=== PATIENT | male | born 1945 | race Caucasian/White ===

== ENCOUNTER → 2016-12-11 | Outpatient (CLI) | payer OTHER ==
[~2016-12-11] MED LIST: AMLO-114 PO; BP MED; GLC500 PO; GLUC500C4 PO; HYDR25TA4 PO; IBUP1CAP9 PO; LISI40TA PO; MAGN400T6 PO; METO1TAB71 PO; MULT-506 PO; SIMV20TA2 PO; VITAMIN D PO; [UNRECOGNIZED DRUG - CODE] PO
[2016-12-11 17:29] LABS: BASO % 0.2 %; BASO ABS # 0.01 K/uL (0-0.2); COMPLETE YES; HEMATOCRIT 39.9 % (42-52); IG% 0.2 %; LYMPH % 46.1 %; LYMPH ABS # 2.73 K/uL (1.2-3.4); MEAN CELL VOLUME 86.6 fL (80-100); MEAN CORPUSCULAR HEMOGLOBIN 29.5 pg (25-34); MEAN CORPUSCULAR HGB CONC 34.1 g/dl (32-36); MEAN PLATELET VOLUME 10.8 fL (7.4-10.4); MONO % 5.2 %; NEUT % 47.3 %; PLATELET COUNT 149 K/uL (130-400); RED BLOOD COUNT 4.61 M/uL (4.7-6.1); WHITE BLOOD COUNT 5.92 K/uL (4.8-10.8)
[2016-12-11 17:49] LABS: URINE PROTIEN/CREAT RATIO 0.1 (0-0.2); URINE TOTAL PROTEIN 17.5 mg/dl (0-11.9)
[2016-12-11 17:52] LABS: ALT/SGPT 30 U/L (12-78); BLOOD UREA NITROGEN 24 mg/dl (7-18); BUN/CREATININE RATIO 21.8 (10-20); CALCIUM 8.5 mg/dl (8.5-10.1); CARBON DIOXIDE 29 mmol/L (21-32); CHLORIDE 107 mmol/L (98-107); CHOLESTEROL 178 mg/dl (0-200); GLUCOSE 116 mg/dl (70-99); POTASSIUM 3.4 mmol/L (3.5-5.1); SODIUM 141 mmol/L (136-145); TRIGLYCERIDES 362 mg/dl (0-150); VERY LOW DENSITY LIPOPROT CALC 72 mg/dl
[2016-12-11 18:02] LABS: ALKALINE PHOSPHATASE 60 U/L (45-117); AST/SGOT 17 U/L (15-37); CHOLESTEROL/HDL RATIO 5.4; HDL CHOLESTEROL 33 mg/dl; LDL CHOLESTEROL CALCULATED 73 mg/dl
[2016-12-12 06:52] LABS: ESTIMATED AVERAGE GLUCOSE 114 mg/dl; HA1C FLAG Normal (Normal)
== END | disposition home or self-care (01) ==
LOC: C.LAB 17:05
PROVIDERS: ATTEND Internal Medicine Geriatric Medicine
DX: E78.5 Hyperlipidemia, unspecified (principal); I10 Essential (primary) hypertension; R80.9 Proteinuria, unspecified; E11.9 Type 2 diabetes mellitus without complications; Z11.59 Encounter for screening for other viral diseases

== ENCOUNTER → 2016-12-31 | Day surgery (SDC) | payer OTHER ==
[2016-12-25 09:06] VITALS: Ht 172.7 cm; Wt 100.0 kg
[~2016-12-31] VITALS: Ht 172.7 cm; Wt 100.0 kg
[~2016-12-31] MED LIST changes: -BP MED; +LIDOCAINE HCL 2% 2 ML VIAL (20MG/ML) ONE; +PROPOFOL IV EMULSION 10 MG/ML 20 ML VIAL IV ONE; +SODIUM CHLORIDE 0.9% 500ML 500 ML IV ONE
--- NOTE | 2016-12-31 13:09 | Endo History and Physical ---
History & Physical Date of Service: Dec 31, 2016. Chief Complaint: screening Referring Physician: Dr. Andi Kendall History of Present Illness 71 yo CM who presents for screening colonoscopy. Past Surgical History Hx Cardiac Surgery: No Hx Internal Defibrillator: No Hx Pacemaker: No Hx Abdominal Surgery: No Hx of Implantable Prosthesis: No Hx Post-Op Nausea and Vomiting: No Hx Cancer Surgery: No Hx Thoracic Surgery: No Hx Orthopedic: Yes (LEFT FEMUR FX REPAIR (TRACTION), LEFT BIG TOE SX WITH HARDWARE) Hx Urinary Tract Surgery: No Family History None Social History Smoking Status: Former Smoker Hx Substance Use: No Hx Alcohol Use: Yes (OCCASIONALLY) Allergies Coded Allergies: No Known Allergies (Verified , 12/31/16) Current Medications Reported Home Medications Medications Dose Route/Sig Max Daily Dose Days Date Category Mag-Ox (Magnesium Oxide) 400 Mg Tab 400 Mg PO QAM 12/25/16 Reported Glucosamine (Glucosamine Sulfate) 500 Mg Cap 1,000 Mg PO QAM 12/25/16 Reported [Vitamin D] 1 Tab PO QAM 12/25/16 Reported Multivitamin (Multivitamins) Tab 1 Tab PO QAM 12/25/16 Reported Ibuprofen 200 Mg Cap 2 Cap PO BID PRN 12/25/16 Reported Doxazosin (Doxazosin Mesylate) 8 Mg Tab 0.5 Tab PO BID 12/25/16 Reported Zocor (Simvastatin) 20 Mg Tab 20 Mg PO QPM 12/25/16 Reported Metformin HCl 500 Mg Tab 1 Tab PO BID 12/25/16 Reported Toprol-Xl (Metoprolol Succinate) 200 Mg Tabcr 200 Mg PO QAM 12/25/16 Reported Hctz (Hydrochlorothiazide) 25 Mg Tab 25 Mg PO QAM 12/25/16 Reported Zestril (Lisinopril) 40 Mg Tab 40 Mg PO QAM 12/25/16 Reported Norvasc (Amlodipine Besylate) 10 Mg Tab 10 Mg PO QAM 12/25/16 Reported Vital Signs Weight (Kilograms): 100 Height (Feet): 5 Height (Inches): 8 Date Time Temp Pulse Resp B/P (MAP) Pulse Ox O2 Delivery O2 Flow Rate FiO2 12/31/16 12:11 36.8 61 20 177/75 (109) 97 Room Air Physical Exam General Appearance: WD/WN, no apparent distress Respiratory/Chest: Auscultation: breath sounds normal Cardiovascular: Heart Auscultation: RRR Abdomen: Bowel Sounds: normal Inspection & Palpation: soft, non-distended, no tenderness, guarding & rebound Assessment and Plan Assessment: 71 yo CM who presents for screening colonoscopy. Plan: Proceed with colonoscopy.
--- NOTE | 2016-12-31 14:04 | Discharge Instructions ---
Endoscopy Patient Instructions Date / Procedure(s) Performed Dec 31, 2016. Colonoscopy Allergy Information Coded Allergies: No Known Allergies (Verified , 12/31/16) Discharge Date / Findings Dec 31, 2016. Colon polyps Rectal polyps Internal hemorrhoids Medication Instructions Stopped Medication(s): Stopped Metformin,vitamins yesterday OK to resume all medications today as prescribed Reported Home Medications Medications Dose Route/Sig Max Daily Dose Days Date Category Mag-Ox (Magnesium Oxide) 400 Mg Tab 400 Mg PO QAM 12/25/16 Reported Glucosamine (Glucosamine Sulfate) 500 Mg Cap 1,000 Mg PO QAM 12/25/16 Reported [Vitamin D] 1 Tab PO QAM 12/25/16 Reported Multivitamin (Multivitamins) Tab 1 Tab PO QAM 12/25/16 Reported Ibuprofen 200 Mg Cap 2 Cap PO BID PRN 12/25/16 Reported Doxazosin (Doxazosin Mesylate) 8 Mg Tab 0.5 Tab PO BID 12/25/16 Reported Zocor (Simvastatin) 20 Mg Tab 20 Mg PO QPM 12/25/16 Reported Metformin HCl 500 Mg Tab 1 Tab PO BID 12/25/16 Reported Toprol-Xl (Metoprolol Succinate) 200 Mg Tabcr 200 Mg PO QAM 12/25/16 Reported Hctz (Hydrochlorothiazide) 25 Mg Tab 25 Mg PO QAM 12/25/16 Reported Zestril (Lisinopril) 40 Mg Tab 40 Mg PO QAM 12/25/16 Reported Norvasc (Amlodipine Besylate) 10 Mg Tab 10 Mg PO QAM 12/25/16 Reported Provider Instructions Activity Restrictions - No exercising or heavy lifting for 24 hours. - Do not drink alcohol the day of the procedure. - Do not drive a car or operate machinery until the day after the procedure. - Do not make any important decisions or sign important papers in 24 hours after the procedure. Following Day: - Return to full activity which may include returning to work/school. Diet Start your diet with liquids and light foods (jello, soup, juice, toast). Then eat your usual diet if not nauseated. Treatment For Common After Affects For mild abdominal pain, bloating, or excessive gas: - Rest - Eat lightly - Lie on right side Follow-Up Information Follow-up with Dr. Andi Kendall as scheduled Anesthesia Information What You Should Know You have had a procedure that required some medicine to reduce anxiety and discomfort. This treatment is called moderate sedation. After receiving the treatment, you may be sleepy, but you will be able to breathe on your own. The effects of the treatment may last for several hours. Follow these instructions along with Activity/Diet recommendations noted above: * Do NOT do anything where dizziness or clumsiness would be dangerous. * Rest quietly at home today, then you can be up and about tomorrow. * Have a responsible person stay with you the rest of today. * You may have had an I.V. today. If so, you may take the dressing off later today. Recommendations Call your doctor if: * Trouble breathing * Continuous vomiting for more than 24 hours * Temperature above 101 degrees * Severe abdominal pain or bloating * Pain not relieved by pain medicine ordered * There is increased drainage or redness from any incision * A large amount of rectal bleeding greater than 2-3 tablespoons. (If you had a polyp/s removed or have hemorrhoids, a small amount of blood - from the rectum is to be expected.) * You have any unanswered questions or concerns. IN THE EVENT OF A SERIOUS EMERGENCY, GO TO THE NEAREST EMERGENCY ROOM Your discharge instructions were prepared by provider Emil Ambriz. Patient Instructions Signature Page Neo Benavidez Patient (or Guardian) Signature/Date: I have read and understand the instructions given to me by my caregivers. Caregiver/RN/Doctor Signature/Date: The above-named patient and/or guardian has received patient instructions on this date. + Original Patient Signature Page (only) stays with chart. Please make copy for patient.
[2016-12-31 14:37] VITALS: BP 167/69; PULSE 57; O2SAT 97
--- NOTE | 2016-12-31 14:43 | Anesthesiology Progress Note ---
Anesthesia Post Op Note Date & Time Dec 31, 2016 at 14:43 Vital Signs Pain Intensity: 0 Vital Signs Past 12 Hours Date Time Temp Pulse Resp B/P (MAP) Pulse Ox O2 Delivery O2 Flow Rate FiO2 12/31/16 14:37 57 20 167/69 (101) 97 Room Air 12/31/16 14:20 57 20 165/73 (103) 96 Room Air 12/31/16 14:05 60 20 172/70 (104) 98 Room Air 12/31/16 12:11 36.8 61 20 177/75 (109) 97 Room Air Notes Mental Status: alert / awake / arousable, participated in evaluation Pt Amnestic to Procedure: Yes Nausea / Vomiting: adequately controlled Pain: adequately controlled Airway Patency, RR, SpO2: stable & adequate BP & HR: stable & adequate Hydration State: stable & adequate Anesthetic Complications: no major complications apparent
--- NOTE | 2017-01-01 00:14 | GI REPORT ---
Procedure Date: 12/31/2016 1:21 PM Procedure: Colonoscopy Indications: Screening for colorectal malignant neoplasm Medicines: Monitored Anesthesia Care Complications: No immediate complications. Estimated Blood Loss: Estimated blood loss: none. Procedure: Pre-Anesthesia Assessment: - Prior to the procedure, a History and Physical was performed, and patient medications and allergies were reviewed. The patient's tolerance of previous anesthesia was also reviewed. The risks and benefits of the procedure and the sedation options and risks were discussed with the patient. All questions were answered, and informed consent was obtained. Prior Anticoagulants: The patient has taken no previous anticoagulant or antiplatelet agents. ASA Grade Assessment: II - A patient with mild systemic disease. After reviewing the risks and benefits, the patient was deemed in satisfactory condition to undergo the procedure. After I obtained informed consent, the scope was passed under direct vision. Throughout the procedure, the patient's blood pressure, pulse, and oxygen saturations were monitored continuously. The Scope was introduced through the anus and advanced to the terminal ileum. The colonoscopy was performed without difficulty. The patient tolerated the procedure well. The quality of the bowel preparation was good. The terminal ileum, ileocecal valve, appendiceal orifice, and rectum were photographed. Findings: Nine pedunculated and sessile polyps were found in the rectum, in the sigmoid colon and in the ascending colon. The polyps were 5 to 11 mm in size. These polyps were removed with a hot snare. Resection and retrieval were complete. Non-bleeding internal hemorrhoids were found during retroflexion. The hemorrhoids were small. Impression: - Nine 5 to 11 mm polyps in the rectum, in the sigmoid colon and in the ascending colon, removed with a hot snare. Resected and retrieved. - Non-bleeding internal hemorrhoids. Recommendation: - Resume previous diet. - Continue present medications. - Repeat colonoscopy for surveillance based on pathology results. - Return to primary care physician as previously scheduled. Emil Ambriz, 12/31/2016 3:19:28 PM This report has been signed electronically. Note Initiated On: 12/31/2016 1:21 PM I attest to the content of the Intraoperative Record and orders documented therein, exceptions below
== END | disposition home or self-care (01) ==
LOC: C.GI 11:46
PROVIDERS: ATTEND Internal Medicine
DX: Z12.11 Encounter for screening for malignant neoplasm of colon (principal); D12.2 Benign neoplasm of ascending colon; K62.1 Rectal polyp; K64.8 Other hemorrhoids; Z87.891 Personal history of nicotine dependence

== ENCOUNTER → 2017-06-11 | Outpatient (CLI) | payer OTHER ==
[~2017-06-11] MED LIST changes: +DOXA8TAB6 PO; -LIDOCAINE HCL 2% 2 ML VIAL (20MG/ML) ONE; -METO1TAB71 PO; +METO200T32 PO; -PROPOFOL IV EMULSION 10 MG/ML 20 ML VIAL IV ONE; -SODIUM CHLORIDE 0.9% 500ML 500 ML IV ONE; -[UNRECOGNIZED DRUG - CODE] PO
[2017-06-11 14:37] LABS: BASO % 0.1 %; BASO ABS # 0.01 K/uL (0-0.2); EOS % 0.9 %; EOS ABS # 0.07 K/uL (0-0.5); HEMATOCRIT 43.1 % (42-52); IG# 0.01 K/uL (0.00-0.02); LYMPH % 38.4 %; LYMPH ABS # 2.91 K/uL (1.2-3.4); MEAN CELL VOLUME 85.7 fL (80-100); MEAN CORPUSCULAR HEMOGLOBIN 29.8 pg (25-34); MEAN CORPUSCULAR HGB CONC 34.8 g/dl (32-36); MONO % 5.3 %; NEUT % 55.2 %; NEUT ABS # 4.18 K/uL (1.4-6.5); PLATELET COUNT 149 K/uL (130-400); RED CELL DISTRIBUTION WIDTH CV 13.4 % (11.5-14.5); WHITE BLOOD COUNT 7.58 K/uL (4.8-10.8)
[2017-06-11 15:03] LABS: BLOOD UREA NITROGEN 20 mg/dl (7-18); CALCIUM 9.2 mg/dl (8.5-10.1); CARBON DIOXIDE 29 mmol/L (21-32); CREATININE 1.06 mg/dl (0.60-1.40); GLUCOSE 95 mg/dl (70-99); POTASSIUM 3.7 mmol/L (3.5-5.1); SODIUM 137 mmol/L (136-145)
[2017-06-12 05:48] LABS: HEMOGLOBIN A1C 5.6 % (4.5-5.6)
== END | disposition home or self-care (01) ==
LOC: C.LAB 14:07
PROVIDERS: ATTEND Internal Medicine Geriatric Medicine
DX: I10 Essential (primary) hypertension (principal); N40.0 Benign prostatic hyperplasia without lower urinary tract symptoms; E11.9 Type 2 diabetes mellitus without complications

== ENCOUNTER → 2017-07-25 | Outpatient (CLI) | payer OTHER ==
[2017-07-25 14:15] LABS: BLOOD UREA NITROGEN 19 mg/dl (7-18); CALCIUM 9.2 mg/dl (8.5-10.1); CARBON DIOXIDE 30 mmol/L (21-32); CREATININE 0.86 mg/dl (0.60-1.40); GLUCOSE 71 mg/dl (70-99); POTASSIUM 4.2 mmol/L (3.5-5.1); SODIUM 140 mmol/L (136-145)
== END | disposition home or self-care (01) ==
LOC: C.LABBC 10:33
PROVIDERS: ATTEND Internal Medicine Geriatric Medicine
DX: I10 Essential (primary) hypertension (principal)

== ENCOUNTER → 2017-12-04 | Outpatient (CLI) | payer OTHER ==
[~2017-12-04] MED LIST changes: -AMLO-114 PO; +AMLO10TA3 PO; -IBUP1CAP9 PO; +IBUP200C80 PO
[2017-12-04 15:21] LABS: ALBUMIN 3.6 gm/dl (3.4-5.0); ALKALINE PHOSPHATASE 69 U/L (45-117); ALT/SGPT 29 U/L (12-78); AST/SGOT 19 U/L (15-37); BLOOD UREA NITROGEN 22 mg/dl (7-18); CALCIUM 8.9 mg/dl (8.5-10.1); CARBON DIOXIDE 26 mmol/L (21-32); CHOLESTEROL 187 mg/dl (0-200); CREATININE 1.04 mg/dl (0.60-1.40); GLUCOSE 88 mg/dl (70-99); LDL CHOLESTEROL CALCULATED 81 mg/dl; POTASSIUM 3.6 mmol/L (3.5-5.1); SODIUM 139 mmol/L (136-145); TOTAL PROTEIN 7.2 gm/dl (6.4-8.2)
== END | disposition home or self-care (01) ==
LOC: C.LAB 13:24
PROVIDERS: ATTEND Internal Medicine Geriatric Medicine
DX: I10 Essential (primary) hypertension (principal); E11.9 Type 2 diabetes mellitus without complications; E78.5 Hyperlipidemia, unspecified

== ENCOUNTER 2018-06-30 09:51 | Observation (INO) ==
[2018-06-30] MEDS ORDERED: MIDAZOLAM HCL 1 MG/ML 2ML VIAL ONE (10:53)
[2018-06-30] MEDS ORDERED: fentaNYL citrate 100 MCG/2 ML VIAL ONE (10:53)
[2018-06-30] MEDS ORDERED: NiCARDipine HCL INJ 2.5 MG/ML 10 ML AMP ONE (10:54)
[2018-06-30] MEDS ORDERED: HEPARIN (PORCINE) 1000 UNIT/ML 10 ML (CATH LAB USE ONLY) ONE (10:54)
[2018-06-30] MEDS ORDERED: NITROGLYCERIN/D5W 100MCG/ML 20ML SYR ONE (10:54)
--- NOTE | 2018-06-30 11:12 | History & Physical Bridge Note ---
Date of Service June 30, 2018 History & Physical Bridge Note I have examined the patient, reviewed the History & Physical and in the interval since the performance of the History & Physical I have noted the following changes of clinical significance: no changes noted
--- NOTE | 2018-06-30 11:12 | Pre Anesthesia Assessment ---
Date of Service June 30, 2018 Pre Sedation Assessment Vital Signs Temp Pulse Resp BP Pulse Ox 06/30/18 10:09 37.1 C 67 16 153/69 H 95 Cardiovascular RRR, no murmur, no edema Respiratory normal respiratory effort, lungs clear to auscultation Pre-Sedation Airway Assessment Smoking Status: Former smoker Hx Sleep Apnea: No Short, Thick Neck: No Thyromental Distance: > or= 3.5 Finger Breadths Oral Cavity: + WNL Mallampati Class: II ASA: ASA3 NPO Status Date of Last Intake of Fluids: 06/29/18 Time of Last Intake of Fluids: 20:00 Date of Last Intake of Solid Food: 06/29/18 Time of Last Intake of Solid Foods: 20:00 Procedure Planning Contraindications for Sedation: none Current Medications Reviewed: Yes Notes The planned sedation has been discussed with the patient. Informed Consent was obtained. I have identified the patient, determined the appropriateness of sedation and have assessed the patient immediately prior to the procedure. All medicine(s) and interventions are by my order.
[2018-06-30] MEDS ORDERED: HEPARIN 25000 UNIT/500 ML D5W IV ONE (12:47)
[2018-06-30] MEDS ORDERED: Heparin IV Standard *NO* Bolus STA (12:48)
--- NOTE | 2018-06-30 12:58 | Post Anesthesia Assessment ---
Date of Service June 30, 2018 Post Sedation Assessment Vital Signs Temp Pulse Resp BP Pulse Ox 06/30/18 10:09 37.1 C 67 16 153/69 H 95 Recovery Score Activity: Moves 4 extremities Respiration: Deep Breath/Cough Circulation: +/-20% PreAnes Value Consciousness: Fully Awake Oxygen Saturation: O2 needed for >90% Discharge Sedation Level of Care: Fast Track Phase II Post Sedation Plan On clinical assessment, the patient appears to have tolerated the sedation without complications. Patient is recovering as anticipated. Patient will continue to be monitored by nursing and may be discharged when sedation discharge criteria are met per below protocol. Upon Completions of procedure and additional 15 minutes continue every 5 minute vital signs and the P.A.R. score; then discharge to a Phase I or Fast Track to Phase II per the following guidelines: * Discharge Patient to appropriate Phase II area if PAR is 8 or greater or return to pre- procedure baseline. The post - procedure orders will be as directed. * If PAR score is less than 8 or not return to pre-procedure baseline then patient will follow Phase I monitoring till PAR is reached for Phase II. The Phase I may be done in procedure room or may call to secure a Phase I area. * If naloxone or flumazenil are used for reversal, hold in Phase I for continued monitoring from when last reversal dose was given for a minimum of 60 minutes or longer pending the nurse and/or physician discretion of patient condition before discharge to Phase II. Please call the Sedation Physician to re-evaluate and complete post-note for discharge to Phase II area. Do NOT discharge from procedure sedation or Phase 1 until post- sedation evaluation note is complete by procedure /sedation MD Sedation Discharge Instructions to be given to the patient at discharge to home.
--- NOTE | 2018-06-30 13:04 | Cardiac Catheterization ---
Cardiac Cath Procedure Full Procedure Date June 30, 2018 Pre-Procedure Diagnosis Pre-Procedure Diagnosis: Angina AUC Score AUC Score: 7 Post-Procedure Diagnosis Post-Procedure Diagnosis: Severe CAD, Unsuccessful PCI, Normal LV Systolic Function and Normal Intracardiac Pressures Procedure(s) Performed Procedure(s) Performed: Coronary Angiography, Left Heart Cath, PTCA and IVUS Ux Interaction Designer Ian Rock MD Sleeve Baster(s) Drake Estimated Blood Loss Estimated Blood Loss: None Medication(s) Medication(s): Fentanyl, Heparin, Lidocaine 1%, Nicardipine, Nitroglycerin and Versed Summary of Findings Indication: Unstable angina Access: 6 [place] right radial artery Catheters: [place], JL 3.5, pigtail; JL 3.5 guide Findings: LM -short, mildly calcified, 20% distal disease (IVUS - eccentric calcification , mild to moderate diffuse disease, MLA 7.9 mm) LAD -95-99% ostial stenosis, moderately calcified, proximal segment with mild to moderate diffuse disease angiographically. Severe disease in small inferior branch of 2nd diagonal. Circumflex -moderate caliber, mild diffuse proximal mid disease, small to moderate caliber OM 2 with diffuse 70% proximal stenosis. Diffuse moderate to severe disease in distal PLB RCA -dominant, diffuse 20-30% proximal to mid disease, distal luminal irregularities, 80-90% focal right PDA LVEDP -5 [id number]%, no regional wall motion normalities Patient endorsed strong preference for avoiding bypass surgery due to a family member who had had a poor outcome. Decision made to proceed with attempted PCI of ostial LAD -- PCI -- Antithrombotic therapy: Heparin Procedure: Left main cannulated with JL 3.5 guide J2Ee Application Developer 50 wire passed across ostial lesion into distal LAD BMW wire placed into OM 2 Ostial LAD lesion predilated with 2.5 compliant balloon IVUS revealed calcified moderate to severe disease extending into the mid segment across small septal Proximal to mid LAD dilated with 2.5, 2.75 and 2.75 NC balloons Unable to deliver 3.0 x 30 mm [place] drug-eluting stent into mid LAD Post angioplasty residual 60% ostial stenosis with questionable dissection. Proximal to mid segment well-expanded angiographically. Arterial Closure: TR band Summary: 1. Severe multi vessel coronary artery disease -95-99% ostial LAD. Diffuse, calcified moderate proximal to mid LAD disease Diffuse 70% OM 2 Focal 80-90% right PDA 2. Normal intracardiac filling pressure 3. Angioplasty of ostial LAD, proximal to mid LAD segments with 2.5, 2.75 balloons. Unable to pass stents into mid segment due to calcification Recommendations: Discussed options for further intervention with patient including bypass surgery. Again wishes to avoid cardiac surgery. Discussed case with interventional cardiology at [facility]. We will plan to transfer for consideration of complex PCI possibly requiring atherectomy. Continue heparin infusion, loaded with ticagrelor. Hemodynamics Rest Ao:: 107/44/69 Final Ao: 143/60/90 LV: 101/5 Recommendations Recommendations: PCI without planned CABG Specimens Specimens: None Radiation Exposure (mGy) 5092 Contrast (mls) 260 Fluids (cc crystalloids) Fluids (cc crystalloids): 166 Drains Drains: none Anesthesia moderate Procedural Complication(s) None Disposition PCU ACC Data: Facility Service Associate Cardiac Status Clinical evaluation leading to the procedure CAD Presenation: Non STEMI Anginal Classification: CCS IV Heart Failure: No Cardiogenic Shock within 24 Hours: No Cardiac Arrest within 24 Hours: No Imaging Studies Past 6 Months: No Stress Studies Past 6 Months: No Diagnostic Physicians Name: Ian Rock MD Status: Elective Closure Device Percutaneous Entry Location: Radial Closure Device: Radial Band Recommendations: PCI without planned CABG PCI Indication: Unstable Angina Lesion Segment Name: Ostial LAD Culprit Artery: Yes Stenosis Prior to Rx (%): 99 Chronic Total Occlusion: No IVUS: Yes FFR: No Pre-Procedure GRACIE Flow: 3 Previously Treated Lesion: No Lesion Complexity: High/C Lesion Length (mm): 30 Thrombus Present: No Bifurcation Lesion: Yes Guidewire Across Lesion: Stenosis Post-Procedure (%): 60 Post-Procedure GRACIE Flow: 3 Devices(s) Deployed: Yes Yes Intraprocedure Events Significant Disection: No Perforation: No
[2018-06-30] MEDS ORDERED: SODIUM CHLORIDE 0.9% 1000ML 1,000 ML IV SCH (13:15)
[2018-06-30] MEDS ORDERED: HEPARIN SODIUM/DEXTROSE 25,000 UNITS/500 ML BAG IV SCH (13:55)
[2018-06-30 14:49] LABS: Partial Thromboplastin Ratio 6.3
[2018-06-30 14:53] LABS: Partial Thromboplastin Time 162.7 Seconds (21.0-31.0)
[2018-06-30 16:07] LABS: Partial Thromboplastin Ratio 2.2
[2018-06-30 16:13] LABS: Partial Thromboplastin Time 56.5 Seconds (21.0-31.0)
--- NOTE | 2018-06-30 17:07 | Discharge Summary ---
Date of Service June 30, 2018 Admission HPI Per Admitting Provider 73-year-old man with a history of hypertension, well controlled type 2 diabetes on oral therapy (last A1c less than 5.5) who was referred for cardiac catheterization in the setting of accelerating angina and one episode of chest pain occurring at rest. Episode of chest pain at rest occurred several weeks ago lasting approximately an hour, relieved with extra metoprolol, sublingual nitrates. No additional chest pain since that time although activity limited. Previously underwent a stress test in May 2017 on which patient had limited functional capacity did not achieve target heart rate. Had inferior ST depressions but stress echo images reported to be negative for ischemia at 70% [facility] 1. Severe multi vessel coronary artery disease -95-99% ostial LAD. Diffuse, calcified moderate proximal to mid LAD disease Diffuse 70% OM 2 Focal 80-90% right PDA 2. Normal intracardiac filling pressure 3. Angioplasty of ostial LAD, proximal to mid LAD segments with 2.5, 2.75 balloons. Unable to pass stents into mid segment due to calcification Discharge Data Consultations 06/30/18 16:13 Burn CD for patient Stat Procedures Performed Operation Date: 06/30/18 11:00 Actual Procedures p Cath, Left with Cors and Vent - Donald Rock MD s Cineradiography w/Routine Exam - Donald Rock MD s IVUS Coronary Single Vessel - Donald Rock MD s Drug Eluting Stent SGl Vessel - Donald Rock MD s POBA SGL Vessel - Donald Rock MD Hospital Course (1) Multi-vessel coronary artery stenosis: Patient underwent diagnostic coronary angiography in the setting of accelerating angina and one episode of chest pain at rest. Procedure completed via right radial artery was found to have severe multivessel disease including a 99% ostial LAD lesion. Patient had previously stated is strong desire to avoid cardiac surgery in the setting of a family member who had had a poor outcome with prior bypass. In the setting of relatively focal, low syntax disease attempt was made to intervene on his ostial LAD. Ostial LAD dilated with 2.5 and 2.75 balloons. IVUS revealed more diffuse, heavily calcified proximal to mid disease. Proximal mid disease dilated with compliant and noncompliant balloons. Unable to pass a drug-eluting stent calcified disease into the mid segment and decision was made to abort procedure. At completion of procedure patient was chest pain-free with GRACIE-3 flow in LAD. Case was discussed with interventional cardiology at [facility]. We will plan to transfer for consideration of complex PCI potentially requiring atherectomy. Patient loaded with ticagrelor and to be transferred on heparin infusion.
[2018-06-30] MEDS ORDERED: TICAGRELOR 90 MG TAB PO ONE (17:14)
[2018-06-30] MEDS ORDERED: METOPROLOL SUCC 50MG EXT REL TAB PO SCH (21:00)
[2018-07-01] MEDS ORDERED: SPIRONOLACTONE 25 MG TAB PO SCH (09:00)
[2018-07-01] MEDS ORDERED: AMLODIPINE BESYLATE 5 MG TAB PO SCH (09:00)
[2018-07-01] MEDS ORDERED: ATORVASTATIN 40 MG TAB PO SCH (09:00)
[2018-07-01] MEDS ORDERED: LISINOPRIL 40 MG TAB PO SCH (09:00)
[2018-07-01] MEDS ORDERED: ASPIRIN 81 MG ECTAB PO SCH (09:00)
[2018-07-01] MEDS ORDERED: METOPROLOL SUCC 50MG EXT REL TAB PO SCH (09:00)
[2018-07-01] MEDS ORDERED: ISOSORBIDE MONO EXTENDED REL 30 MG TABCR PO SCH (09:00)
[2018-07-01] MEDS ORDERED: hydroCHLOROthiazide 25 MG TAB PO SCH (09:00)
[2018-07-01] MEDS ORDERED: DOXAZosin MESYLATE 4 MG TAB PO SCH (09:00)
== END 2018-06-30 18:23 | disposition short-term general hospital (02) ==
LOC: 2S 09:51 → CC 09:51

== ENCOUNTER 2022-08-13 08:27 | Inpatient (IN) ==
[2022-08-13] MEDS ORDERED: ONDANSETRON INJ 2 MG/ML 2 ML VIAL IV STA (08:39)
--- NOTE | 2022-08-13 08:44 | Emergency Department Note ---
Impression & Plan Hematuria, Dysuria, Back pain, ARF (acute renal failure) ED Provider Note ED Provider Note NAME: RAKEL DELA CRUZ AGE:77 SEX: Male : 1945 ARRIVES VIA: Private vehicle INFORMANT: Patient ED PROVIDER(s): Heena Miller DO CHIEF COMPLAINT: Hematuria, dysuria HPI: This is a 77-year-old male presents emergency room due to concern for 3 days of worsening hematuria, dysuria, urinary urgency, now coming back pain. P atient states symptoms feel similar to when he had a urinary tract infection 2 or 3 years ago that was able to be treated as an outpatient. He denies any history of prostate problems. Patient does take aspirin and Plavix daily, no other anticoagulation. No other change in medications. Patient denies fevers or chills, admits to intermittent nausea but no vomiting. States mild abdominal discomfort additionally. PAST MEDICAL HISTORY:See Below PAST SURGICAL HISTORY:See Below FAMILY HISTORY:See Below SOCIAL HISTORY:See Below HOME MEDICATIONS:See Below ALLERGIES:See Below VITALS:See Below PHYSICAL EXAMINATION: GENERAL: alert, well appearing, well nourished, no distress, non-toxic EYE EXAM: normal conjunctiva, PERRL and EOM's grossly intact OROPHARYNX: no exudate, no erythema, lips, buccal mucosa, and tongue normal and mucous membranes are moist NECK: supple, no nuchal rigidity, no adenopathy, non-tender LUNGS: Clear to auscultation. Normal chest wall mechanics, no w/r/r HEART: no murmurs, S1 normal and S2 normal ABDOMEN: abdomen soft, non-tender, normo-active bowel sounds, no masses, no rebound or guarding. BACK: Back is symmetrical on inspection and there is no deformity, no midline tenderness, no CVA tenderness. SKIN: no rashes, petechiae, orbruising UPPER EXTREMITIES: upper extremities are grossly normal. FROM, nml pulses b/l. LOWER EXTREMITIES: No pitting edema. FROM, nml pulses b/l. NEURO EXAM: Normal sensorium, cranial nerves II-XII grossly intact, normal speech, no facial droop,nogross weakness of arms, no gross weakness of legs. Gross sensation intact. No ataxia. Vital Signs: reviewed and remarkable Differential Diagnosis: Differential: UTI, Urethritis, Pyelonephritis, STI, Hyperglycemia, Hemorrhagic Cystitis, renal cell carcinoma, KENDRICK, urothelial cancer, bladder tumor, bladder polyp, prostatitis, amongst other pathologies entertained. MEDICAL DECISION MAKING: This is a 77-year-old male who presents emergency department due to concern for possible UTI. Patient afebrile and vital signs stable. Due to advanced age and concern for coming gross hematuria and back pain, labs are drawn and sent, IV established, patient placed on telemetry. Collection of urine here reviewed gross hematuria. I suspect this is made worse by his use of antiplatelet therapy although he does have a prior documented history of hemorrhagic cystitis. Bladder scan did reveal greater than 400 mL in the bladder and we discussed placing a Kennedy. Patient did have improvement of lower abdominal pressure/pain with placement of the Kennedy. Patient's labs revealed significant new KENDRICK compared to prior. He was sent for CT of the abdomen pelvis without contrast additionally. Patient given IV antibiotics as a precaution due to concern for occult infection and prior history of UTI. I discussed all results with the patient at bedside. Discussed the need for additional inpatient management and treatment, he verbalized understanding was in agreement with the plan. Case discussed with [facility] team. Consultation(s): 1045: Discussed with Dr. Khan, [facility]ist team. ER Treatment Provided: See below 0940: Bladder scan revealed greater than 400 mL of urine in the bladder. Discussed placement of Kennedy. Catheter placed by nursing staff with initially around 370 out and began feeling improved. Diagnostics Interpreted By Me: -ECG: [] -Cardiac Monitoring: An order was placed for continuous cardiac monitoring. The monitor shows a rate of 60 with normal sinus rhythm. -Laboratory studies: As stated above and show below. -Imaging studies: [] Triage Nursing Note Reviewed Prior/Outside Records Reviewed -prior outpatient record for UTI from 2 years ago from PCP she was treatment with ciprofloxacin twice daily, no culture sent at that time. Past Med/Surg History Medical History CAD (coronary artery disease) Dyslipidemia Hypertension Low back pain Multi-vessel coronary artery stenosis Tubular adenoma of colon Type 2 diabetes mellitus in remission Surgical History H/O colonoscopy 08/2016, repeat 5 yrs History of cardiac cath ~3 years ago, "failed stress test, needed cath", [place] History of open reduction and internal fixation (ORIF) procedure Lt. Femur Stented coronary artery ~3 years ago, [facility], following cath at [facility], x1 stent (resolut summer) placed; now f/u Luis Manuel Beltran PA-C, [facility] Cardio. Family History Father Non-Hodgkin's lymphoma Mother Multiple myeloma Sister Heart disease Hypertension Dyslipidemia Uncle Myocardial infarction Denies family history of Ovarian cancer Prostate cancer Breast cancer Colorectal cancer Social History Smoking Status: Former smoker Second Hand Exposure: Yes; Hx Alcohol Use: Yes (Occasional ) Alcohol type: beer Alcohol Intake Frequency: 2-4 x/Month Hx Substance Use: Yes Preferred Language: Ugandan Communication Ability: Effective Visual Impairment: Limited Hearing Ability: Normal Coffee Host Required: Yes Beliefs That Will Affect Care: None marital status: Single Current Living Situation: Alone current occupational status: retired How many Children do You have: 0 Feels Safe at Home: Yes Childhood Exposure to Second-Hand Smoke: Yes caffeine: Yes Dental Care, Regularly: Yes Physical Activity Frequency: Daily Seatbelt Use: always Sunscreen Use: Yes Assistive Devices: None Allergies Allergies Allergy/AdvReac Type Severity Reaction Status Date / Time No Known Allergies Allergy Verified 08/13/22 10:47 Home Meds Home Medications Medication Instructions Recorded Confirmed aspirin 81 mg chewable tablet 1 tab PO QAM 12/02/18 08/13/22 blood sugar diagnostic (Contour #10 ea 07/21/19 08/01/22 Test Strips) lisinopril 40 mg tablet 40 mg PO QAM 12/19/21 08/13/22 Previous Rx's Medication Instructions Recorded lancets (Microlet Lancet) #100 ea 01/13/20 chlorthalidone 25 mg tablet 12.5 mg PO BID #90 tabs 10/24/21 metformin 500 mg tablet,extended 500 mg PO BID #180 tabs 03/19/22 release 24 hr amlodipine 10 mg tablet 10 mg PO DAILY #90 tabs 06/12/22 metoprolol succinate 200 mg 200 mg PO BID #180 tabs 06/13/22 tablet,extended release 24 hr clopidogrel 75 mg tablet 75 mg PO QAM #90 tabs 06/21/22 atorvastatin 80 mg tablet 80 mg PO QAM #90 tabs 07/09/22 Results & Data (ED) Vital Signs Vital Signs - 24 hr 08/13/22 08:29 08/13/22 09:14 08/13/22 09:10 Temperature 36.5 C Temperature Source Temporal Artery Scan Pulse Rate 66 59 L 58 L Respiratory Rate 16 16 Blood Pressure 158/70 H Blood Pressure Mean 99 Blood Pressure Position Sitting Pulse Oximetry 99 Oxygen Delivery Method Room Air Sepsis Recent Fever Within 48 Hours No Sepsis New/Unexplained Change in Mental Status No Sepsis Action Taken by Nursing No Action Required 08/13/22 09:20 08/13/22 09:30 08/13/22 09:40 Temperature Temperature Source Pulse Rate 64 59 L 58 L Respiratory Rate 15 19 16 Blood Pressure Blood Pressure Mean Blood Pressure Position Pulse Oximetry Oxygen Delivery Method Sepsis Recent Fever Within 48 Hours Sepsis New/Unexplained Change in Mental Status Sepsis Action Taken by Nursing 08/13/22 09:50 08/13/22 09:55 08/13/22 09:55 Temperature Temperature Source Pulse Rate 57 L 59 L Respiratory Rate 20 19 Blood Pressure 112/58 L Blood Pressure Mean 76 Blood Pressure Position Pulse Oximetry 97 Oxygen Delivery Method Room Air Sepsis Recent Fever Within 48 Hours Sepsis New/Unexplained Change in Mental Status Sepsis Action Taken by Nursing 08/13/22 10:00 08/13/22 10:30 Temperature Temperature Source Pulse Rate 56 L 56 L Respiratory Rate 22 13 Blood Pressure Blood Pressure Mean Blood Pressure Position Pulse Oximetry 97 Oxygen Delivery Method Room Air Sepsis Recent Fever Within 48 Hours Sepsis New/Unexplained Change in Mental Status Sepsis Action Taken by Nursing Laboratory Data 08/13/22 09:00 08/13/22 09:00 Lab Results 08/13/22 08/13/22 Range/Units 09:00 09:00 WBC 15.67 H (4.8-10.8) K/ul RBC 4.02 L (4.70-6.10) M/uL Hgb 12.1 L (14.0-18.0) g/dl Hct 34.6 L (42.0-52.0) % MCV 86.1 (80.0-100.0) fL MCH 30.1 (25.0-34.0) pg MCHC 35.0 (32.0-36.0) g/dL RDW Std Deviation 41.0 (36.4-46.3) fL RDW Coeff of Elsi 13.1 (11.5-14.5) % Plt Count 191 (130-400) K/uL MPV 11.0 (9.4-12.4) fL Immature Gran % (Auto) 0.6 % Neut % (Auto) 80.9 % Lymph % (Auto) 11.4 % [place] % (Auto) 6.9 % Eos % (Auto) 0.0 % Baso % (Auto) 0.2 % Neut # (Auto) 12.69 H (1.40-6.50) K/uL Lymph # (Auto) 1.78 (1.2-3.4) K/uL [place] # (Auto) 1.08 H (0.11-0.59) K/uL Eos # (Auto) 0.00 (0-0.50) K/uL Baso # (Auto) 0.03 (0-0.2) K/uL Immature Gran # (Auto) 0.09 (0.01-0.20) K/uL Sodium 134 L (136-145) mmol/L Potassium 4.1 (3.5-5.1) mmol/L Chloride 96 L (98-107) mmol/L Carbon Dioxide 30 (21-32) mmol/L Anion Gap 8 (3-11) BUN 70 H (6-23) mg/dl Creatinine 4.69 H* (0.6-1.4) mg/dl Est Cr Clr Drug Dosing 13.8 ml/min Est GFR ( Amer) 13.1 ml/min Est GFR (Non-Af Amer) 11.3 ml/min BUN/Creatinine Ratio 14.9 (10-20) Glucose 134 H (70-99(Fasting)) mg/dl Calcium 8.9 (8.6-10.3) mg/dl Total Bilirubin 0.8 (0.2-1.0) mg/dl AST 40 H (13-39) U/L ALT 20 (7-52) U/L Alkaline Phosphatase 54 (34-104) U/L Total Protein 6.3 (6.0-8.3) gm/dl Albumin 3.7 (3.4-5.0) gm/dl Globulin 2.6 (2.5-4.0) gm/dl Albumin/Globulin Ratio 1.4 (0.9-2) Administered Medications Sodium Chloride (Nss) 500 mls @ 125 mls/hr IV .Q4H MITCH Stop: 09/12/22 08:44 Last Admin: 08/13/22 08:58 Dose: 125 mls/hr Documented By: JER Discontinued Medications Diatrizoate Meglumine (Diatrizoate Meglumine 30% 100ml Vial) 100 ml INSTIL ONCE ONE Stop: 08/13/22 14:19 Last Admin: 08/13/22 15:02 Dose: 100 ml Documented By: [id number] Ceftriaxone Sodium (Rocephin) 2,000 mg in 70 mls @ 140 mls/hr IV NOW STA Stop: 08/13/22 09:53 Last Infusion: 08/13/22 10:23 Dose: 0 mls/hr Documented By: Admin: 08/13/22 09:52 Dose: 140 mls/hr Documented By: JER Ondansetron HCl (Ondansetron Inj 2 Mg/Ml 2 Ml Vial) 4 mg IV NOW STA Stop: 08/13/22 08:40 Last Admin: 08/13/22 08:58 Dose: 4 mg Documented By: JER Imaging Data Radiologist's Impression: Retrograde Pyelogram 08/13/22 00:00 FL retrograde includes kub CLINICAL HISTORY: B/L STENT PLACEMENTbilateral stent placement with hydronephrosis COMPARISON STUDY: CT abdomen and pelvis of same day FLUOROSCOPY TIME: 167 seconds. FLUOROSCOPY IMAGES: 3 EXPOSURE DOSE: Not given. FINDINGS: Bilateral ureteral stents have been present which appear to be in satisfactory positioning. Distended left-sided hydronephrosis. Contrast within the left hemipelvis, possibly extravasated outside of the urinary tract. IMPRESSION: Fluoroscopic assistance as above. ACT 112: Negative or not required by law. Electronically signed by: Koko Magaña M.D. 08/13/2022 2:56 PM Abdomen/Pelvis CT 08/13/22 09:58 CT OF THE ABDOMEN AND PELVIS WITHOUT CONTRAST CLINICAL HISTORY: Hematuria, urinary retention, back pain. COMPARISON STUDY: CT of the abdomen and pelvis November 13, 2019. TECHNIQUE: Axial images of the abdomen and pelvis were obtained without IV contrast. Images were reviewed in the axial, sagittal, and coronal planes. Automated exposure control was utilized for the study. A dose lowering technique was utilized adhering to the principles of ALARA. FINDINGS: A suspected left lateral chest wall lipoma is partially imaged on this exam. This was shown on prior CT of November 13, 2019. No pneumatosis, free air or portal venous gas is present. No renal, ureteral or bladder calculi are present. Moderate bilateral hydroureteronephrosis is slightly greater on the left. Ureters are dilated to the level of the bladder. There is an 8.8 x 8 x 7.9 cm hyperdense focus within the bladder suggestive of a large clot. A Kennedy balloon and gas within the bladder present. The prostate is enlarged, measuring 5.5 cm in transverse dimension. Bilateral perinephric stranding and fluid is greater on the left. There is no lymphadenopathy. Evaluation of the remainder of the abdomen and pelvis is suboptimal on this unenhanced exam. Liver, spleen, adrenal glands and pancreas are unremarkable. There is no biliary or pancreatic ductal dilatation. There is no evidence for a bowel obstruction. No evidence for acute appendicitis. There is no fluid collection. A lipoma within the left iliopsoas is incidentally noted. There are no acute fractures. No suspicious osseous lesions are present. IMPRESSION: 1. Large clot within the bladder, measuring 8.8 x 8 x 7.9 cm. This results in moderate bilateral hydroureteronephrosis, slightly greater on the left. Although not identified, a coexistent bladder lesion would be difficult to exclude on this unenhanced exam. 2. No urinary calculi. 3. Moderately enlarged prostate. 4. No bowel obstruction. ACT 112: Negative or not required by law. Electronically signed by: Hemant Ortega M.D. 08/13/2022 10:25 AM Discharge Plan Visit Data Chief Complaint: Urinary Symptoms Stated Complaint: bladder infection ED Provider: Heena Miller Discharge Problem: Hematuria, Dysuria, Back pain, ARF (acute renal failure) Patient Disposition: Admitted As Inpatient Discharge Instructions Interventions: ED Discharge Assessment Last Done: 08/13/22 12:20
[2022-08-13] MEDS: SODIUM CHLORIDE 0.9% 500 ML IV SCH ×4 (08:58→20:44)
[2022-08-13 09:18] LABS: Basophils # (auto) 0.03 K/uL (0-0.2); Basophils % (auto) 0.2 %; Hematocrit (blood only) 34.6 % (42.0-52.0); Hemoglobin 12.1 g/dl (14.0-18.0); Immature Granulocytes # (auto) 0.09 K/uL (0.01-0.20); Immature Granulocytes % (auto) 0.6 %; Lymphocytes # (auto) 1.78 K/uL (1.2-3.4); Lymphocytes % (auto) 11.4 %; Mean Corpuscular Hemoglobin 30.1 pg (25.0-34.0); Mean Corpuscular Volume 86.1 fL (80.0-100.0); Monocytes # (auto) 1.08 K/uL (0.11-0.59); Monocytes % (auto) 6.9 %; Neutrophils # (auto) 12.69 K/uL (1.40-6.50); Neutrophils % (auto) 80.9 %; Platelet Count 191 K/uL (130-400); RDW Coefficient of Variation 13.1 % (11.5-14.5); Red Blood Count 4.02 M/uL (4.70-6.10); White Blood Count 15.67 K/ul (4.8-10.8)
[2022-08-13] MEDS ORDERED: cefTRIAXone SODIUM 2,000 MG/70 ML BAG IV STA (09:24)
[2022-08-13 10:00] LABS: Albumin Globulin Ratio 1.4 (0.9-2); Albumin Level 3.7 gm/dl (3.4-5.0); BUN Creatinine Ratio 14.9 (10-20); Bilirubin,Total 0.8 mg/dl (0.2-1.0); Calcium 8.9 mg/dl (8.6-10.3); Creatinine Clr Calc Pharmacy 13.8 ml/min; Est GFR (African American) 13.1 ml/min; Est GFR (Non-African American) 11.3 ml/min; Globulin 2.6 gm/dl (2.5-4.0); Potassium 4.1 mmol/L (3.5-5.1); Total Protein 6.3 gm/dl (6.0-8.3)
[2022-08-13 10:06] LABS: Appearance Urine Turbid (Clear); Color Urine Red; Specific Gravity Urine 1.021 (1.000-1.030)
[2022-08-13 10:14] LABS: RBC Urine >30 /hpf (0-4)
[2022-08-13 10:15] LABS: Bacteria Urine Negative (Negative); WBC Urine >30 /hpf (0-5)
--- NOTE | 2022-08-13 10:27 | CT Scan Report ---
CT OF THE ABDOMEN AND PELVIS WITHOUT CONTRAST CLINICAL HISTORY: Hematuria, urinary retention, back pain. COMPARISON STUDY: CT of the abdomen and pelvis November 13, 2019. TECHNIQUE: Axial images of the abdomen and pelvis were obtained without IV contrast. Images were revi ewed in the axial, sagittal, and coronal planes. Automated exposure control was utilized for the ed dy. A dose lowering technique was utilized adhering to the principles of ALARA. FINDINGS: A suspected left lateral chest wall lipoma is partially imaged on this exam. This was shown on prior CT of November 13, 2019. No pneumatosis, free air or portal venous gas is present. No renal, ure teral or bladder calculi are present. Moderate bilateral hydroureteronephrosis is slightly greater on the left. Ureters are dilated to the level of the bladder. There is an 8.8 x 8 x 7.9 cm hyperdense f ocus within the bladder suggestive of a large clot. A Kennedy balloon and gas within the bladder presen t. The prostate is enlarged, measuring 5.5 cm in transverse dimension. Bilateral perinephric strandin g and fluid is greater on the left. There is no lymphadenopathy. Evaluation of the remainder of the a bdomen and pelvis is suboptimal on this unenhanced exam. Liver, spleen, adrenal glands and pancreas a re unremarkable. There is no biliary or pancreatic ductal dilatation. There is no evidence for a maría l obstruction. No evidence for acute appendicitis. There is no fluid collection. A lipoma within the left iliopsoas is incidentally noted. There are no acute fractures. No suspicious osseous lesions are present. IMPRESSION: 1. Large clot within the bladder, measuring 8.8 x 8 x 7.9 cm. This results in moderate bilateral hydr oureteronephrosis, slightly greater on the left. Although not identified, a coexistent bladder lesion would be difficult to exclude on this unenhanced exam. 2. No urinary calculi. 3. Moderately enlarged prostate. 4. No bowel obstruction. ACT 112: Negative or not required by law. Electronically signed by: Hemant Ortega M.D. 08/13/2022 10:25 AM
--- NOTE | 2022-08-13 11:03 | History & Physical Report ---
Date of Service August 13, 2022 Assessment & Plan (1) Hematuria: Plan: Hematuria with mild acute on chronic anemia Patient previously with evidence of hemorrhagic cystitis Baseline hemoglobin appears to be approximately 12.113.8, last hemoglobin several months ago 13.8 Admitting hemoglobin 12.1. MCV 86.1. Reticulocyte count and index pending, iron studies pending given chronic loss and low normal MCV No indication for transfusion, no presyncopal symptoms and hemoglobin greater than 8 Urology consulted for evaluation of obstructive uropathy with clot, anticipate cystoscopy and stent placement today. Patient's last solid food was Saturday at around noon, has been drinking liquids since then due to worsened flank pain. Last drink water / at around 5 AM Patient is a former smoker, quit 30 years ago. 20 years of intermittent up to 1 pack/day tobacco use prior to this No history of GI bleeding (2) Multi-vessel coronary artery stenosis: Plan: Coronary artery disease Follows with Erik Beltran - Per Cardiology Note: Multi-Vessel CAD s/p Ostial and Proximal LAD NEVA x 2 and OM1 NEVA 07/01/2018 (with residual borderline D2 stenosis, OM2 stenosis, RCA/PDA stenoses which are felt amenable to PCI) Has been maintained on aspirin, Plavix. DAPT continued due to multivessel disease not all of which was amenable to stenting/revascularization Discussed with cardiology. He is doing very well with exercise regimens and no anginal symptoms, however given his underlying stents and multivessel disease to be maintained on at least monotherapy. Will continue aspirin for now, and hold Plavix in the setting of hematuria. Ideally could resume DAPT if bleeding source is identified and treated Continue atorvastatin 80 mg daily Metoprolol, lisinopril as noted Patient had a tined GLP-1 in the past (3) Dyslipidemia: Plan: - Continue Statin (4) Type 2 diabetes mellitus in remission: Plan: Type II DM in remission Patient with significant improvement following weight loss from 260s down to 190s with exercise and metformin Goal A1c less than 6.5 No history of neuropathy, nephropathy, or retinopathy Hold home metformin 100 mg twice daily, convert to sliding scale while inpatient N.p.o. 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 Lisinopril and chlorthalidone held in the setting of ARF and mild hypotension. (6) Benign enlargement of prostate: Plan: Follows with urology, history of BPH Kennedy in place, current obstructive uropathy due to clot Patient is with some pain with bowel movements causing radiated pain up into his left flank prior to admission, suspect this was due to his clot with severe hydronephrosis and increased pressure during bowel movements. UA is without bacteria, however remaining analysis is limited due to discoloration with gross hematuria. Empiric Rocephin continued (7) ARF (acute renal failure): Plan: Creatinine baseline is normal, less than 1.2 Acutely elevated to 4.69 on admission Likely due to obstructive uropathy with obstructing clot causing bilateral hydronephrosis, bladder decompressed after Kennedy placed and 700 cc of urine were drained Clinically patient is without volume overload/edema/pulmonary rales or hypoxia. Potassium is normal at 4.1 Trend creatinine daily. If improving with relieved obstructing, can continue to follow with BMP daily. If patient develops increasing hyperkalemia, signs of fluid overload, or creatinine fails to improve with obstruction treatment consult nephrology at that time. At time of admission there is no indication for acute dialysis Plan DVT prophylaxis: Pharmacal prophylaxis contraindicated in the setting of bleeding. SCDs. Patient is continued on aspirin daily CODE STATUS: Full code Disposition: Medical telemetry due to acute renal failure Diet: N.p.o. History of Present Illness Primary Care Provider: Delmi Umanzor MD Neo is a 77-year-old male with a past medical history of type 2 diabetes mellitus, anemia, CAD with multivessel coronary disease with history of PCI/s tents on aspirin, atorvastatin, Plavix, lisinopril, metoprolol and not on insulin who presents for evaluation of hematuria and back pain. CT shows a large clot within the bladder of 8.8 x 8.0 x 7.9 cm with bilateral hydroureteronephrosis and a moderately enlarged prostate. Creatinine is acutely elevated from a normal baseline of less than 1.2 to 4.69. Urinalysis is limited due to high number of red and white blood cells and significant coloration limiting analysis. Kennedy placed for retention with gross hematuria. Hx of hemorrhagic cystitis Rocephin empiric coverage Hx former tobacco Previously seen by urology 08/01/2022 for microscopic hematuria, with a past history of gross hematuria diagnosed with hemorrhagic cystitis and a UTI for which she had a CT urogram in 2019 but has never had cystoscopy. 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 And was scheduled to follow-up for cystoscopy with Dr. Bella. Similar sx a few years ago with a UTI which improved with antibiotics. Thought he might have a UTI. Was not having any blood in his urine until this past Saturday. Had frankly bloody urine 2 days prior to admission, but was the weekend so could not call PCP. Hx IA 2-3 years ago, notes Dr. 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 Has 2 stents. No pain since then. Uses an exercise bike with a ski bike which he does several times per week for leg strength and fitness, no history of chest pain/shortness of breath/chest pressure and has been hiking recently with no anginal symptoms. Other than hematuria no other bleeding Was scheduled for cystoscopy with Dr. Bella on August 21 No lightheadedness. Some dizziness on Saturday with some mild discomfort in his abdomen. This morning the pain spread into his upper back on the L side and was worried about his kidneys so came in to be seen. Has total 500mg tablets x2 last night for back pain last night, otherwise no OTC treatment Denies NSAID treament. Intentional weight loss got to 160lbs. Nothing to eat or drink in 3 days as BMs would cause him a great deal of pain. Last time he ate was Saturday at noon has some fish/vegetable fish. Had some water 5am as was tryin to stay hydrated, otherwise nothign to eat or drink since. Medical History: Reviewed Medications: Reviewed Surgical History: Reviewed Family history: Reviewed Allergies: Reviewed Social History: Quit tobacco 31 years ago, former ~1-1.5ppd for 20 years intermittently prior. Rare social etoh. Code Status: Full Code Allergies Allergy/AdvReac Type Severity Reaction Status Date / Time No Known Allergies Allergy Verified 08/13/22 10:47 Home Medications Medication Instructions Recorded Confirmed Type aspirin 81 mg chewable tablet 1 tab PO QAM 12/02/18 08/13/22 History blood sugar diagnostic (Contour #10 ea 07/21/19 08/01/22 History Test Strips) lancets (Microlet Lancet) #100 ea 01/13/20 08/01/22 Rx chlorthalidone 25 mg tablet 12.5 mg PO BID #90 tabs 10/24/21 08/13/22 Rx lisinopril 40 mg tablet 40 mg PO QAM 12/19/21 08/13/22 History metformin 500 mg tablet,extended 500 mg PO BID #180 tabs 03/19/22 08/13/22 Rx release 24 hr amlodipine 10 mg tablet 10 mg PO DAILY #90 tabs 06/12/22 08/13/22 Rx metoprolol succinate 200 mg 200 mg PO BID #180 tabs 06/13/22 08/13/22 Rx tablet,extended release 24 hr clopidogrel 75 mg tablet 75 mg PO QAM #90 tabs 06/21/22 08/13/22 Rx atorvastatin 80 mg tablet 80 mg PO QAM #90 tabs 07/09/22 08/13/22 Rx Past Med/Surg History Medical History CAD (coronary artery disease) Dyslipidemia Hypertension Low back pain Multi-vessel coronary artery stenosis Tubular adenoma of colon Type 2 diabetes mellitus in remission Surgical History H/O colonoscopy History of cardiac cath History of open reduction and internal fixation (ORIF) procedure Stented coronary artery Family History Father Non-Hodgkin's lymphoma Mother Multiple myeloma Sister Heart disease Hypertension Dyslipidemia Uncle Myocardial infarction Denies family history of Ovarian cancer Prostate cancer Breast cancer Colorectal cancer Social History Smoking Status: Former smoker Second Hand Exposure: Yes; Hx Alcohol Use: Yes (Occasional ) Alcohol type: beer Alcohol Intake Frequency: 2-4 x/Month Hx Substance Use: Yes Preferred Language: Uzbek Communication Ability: Effective Visual Impairment: Limited Hearing Ability: Normal Interface Control Officer Required: Yes Beliefs That Will Affect Care: None marital status: Single Current Living Situation: Alone current occupational status: retired How many Children do You have: 0 Feels Safe at Home: Yes Childhood Exposure to Second-Hand Smoke: Yes caffeine: Yes Dental Care, Regularly: Yes Physical Activity Frequency: Daily Seatbelt Use: always Sunscreen Use: Yes Assistive Devices: None Review of Systems Review of Systems: All systems reviewed & are unremarkable except as noted in HPI & below Physical Exam Physical Exam: General: A&Ox3. NAD. Cooperative. HEENT: Atraumatic, normocephalic. Vision/hearing grossly intact. Pupils equal and reactive to light. Pulm: CTAB A&P. -wheezes, -rales, -rhonchi. Symmetrical chest rise. No increased work of breathing. No respiratory distress. Cardiac: RRR, -mrg. Radial pulses intact and symmetrical. Abdominal: Nontender, nondistended, soft. BS present. Minimal left CVA tenderness vastly improved from prior per patient Extremities: Warm and dry. Sensation intact in hands and feet to soft touch without asymmetry. Rehab Therapist strength/ankle dorsiflexion/plantarflexion/hip flexion 5/5 bilaterally. PT pulse intact, radial pulse intact bilaterally without asymmetry. Results & Data Results & Data Vital Signs (Past 12 Hours) Vital Signs Temp Pulse Resp BP Pulse Ox O2 Del Method 08/13/22 10:30 56 L 13 97 Room Air 08/13/22 10:00 56 L 22 08/13/22 09:55 59 L 19 97 Room Air 08/13/22 09:55 112/58 L 08/13/22 09:50 57 L 20 08/13/22 09:40 58 L 16 08/13/22 09:30 59 L 19 08/13/22 09:20 64 15 08/13/22 09:10 58 L 16 08/13/22 09:14 59 L 08/13/22 08:29 36.5 C 66 16 158/70 H 99 Room Air PG Care Time/CCT Total # of Minutes Spent Total Time Spent with Patient: Total time spent is greater than 50% in coordination of care (as documented) at patient's floor/unit and/or counseling patient: Coding Level of Care Code 19593 INT INP/OBS CARE 3/75MIN Diagnoses Hematuria R31.9 Multi-vessel coronary artery stenosis I25.10 Dyslipidemia E78.5 Type 2 diabetes mellitus in remission E11.9 Hypertension I10 Benign enlargement of prostate N40.0 ARF (acute renal failure) N17.9
[2022-08-13] MEDS ORDERED: ONDANSETRON INJ 2 MG/ML 2 ML VIAL ONE (12:04)
[2022-08-13] MEDS ORDERED: PROPOFOL IV EMULSION 10 MG/ML 20 ML VIAL IV ONE (12:04)
[2022-08-13] MEDS ORDERED: LIDOCAINE 2% MPF LOCAL 5 ML VIAL ONE (12:04)
[2022-08-13] MEDS ORDERED: fentaNYL citrate PF 100 MCG/2 ML VIAL ONE ×2 (12:05→13:49)
--- NOTE | 2022-08-13 12:22 | Urology Consultation ---
Date of Consultation August 13, 2022 Assessment & Plan (1) Hematuria: (2) ARF (acute renal failure): (3) Hydronephrosis: (4) Benign enlargement of prostate: Plan 77yo/M admitted with gross hematuria, acute renal failure. CT abdomen pelvis on arrival demonstrated a large clot within the bladder of 8.8 x 8.0 x 7.9 cm with bilateral hydroureteronephrosis and a moderately enlarged prostate. Afebrile and hemodynamically stable. Labs show a leukocytosis of 15.67, hemoglobin 12.1, creatinine acutely elevated to 4.69 (baseline around 1.1). Urine culture pending, IV Rocephin given in ED. Kennedy catheter placed for retention and currently draining w/hematuria. Continued on aspirin for now, Plavix on hold in the setting of hematuria. Given the large clot burden within the bladder, KENDRICK, and bilateral hydronephrosis, will plan to proceed to OR today for cystoscopy, clot evac uation, fulguration, and bilateral ureteral stent placement with Dr. Krishnamurthy. Risks and benefits to be reviewed with patient by Dr. Krishnamurthy. OR notified. COVID test negative. Urology will follow. Greater than 75 minutes spent on chart review, assessment, planning, documentation, and coordination of care. Attending note: Patient independently assessed, examined, evaluated, and interviewed. Agree with note as above. Patient had significant hematuria development with large amount of what appears to be clot in the bladder. Patient has developed a severe KENDRICK with a significant elevation of his creatinine. Currently his white count is elevated. He is having some mild hypotensive issues with blood pressure 112/58. Pulse was 56. No considerable fever. Patient was given IV Rocephin in the ER. Has the severe elevation of the creatinine to 4.69. Previously had measured around 1. Patient's COVID test was negative. His white count is 15.67. All imaging has been reviewed interpreted by myself. Has significant hydronephrosis with large amount of clot versus mass within the bladder. Concern for possible obstructive issues likely from clot retention versus other issues. Catheter does appear to be in place but has a large amount of clot still remaining within the bladder. Patient's complicated medical and surgical history is reviewed and summarized above. All imaging was reviewed interpreted by myself. Patient had not eaten or drink since Saturday he has been taking small amounts of water since then. Most recently had some water this morning around 5 AM has not had anything else per os since. We will plan to maintain n.p.o. with plans for urgent/emergent procedure for bilateral obstructive issues with possible renal injury/damage. Plan for intervention. Risks and benefits discussed at length for procedure. These include bleeding, infection, injury to surrounding tissues or organs, and risks associated with anesthesia. Patient states understanding and agrees to proceed. Will sign consent and proceed. Plan for cystoscopy with possible clot evacuation and possible bilateral stents possible fulguration History of Present Illness History of Present Illness 77-year-old male with a past medical history of type 2 diabetes mellitus, anemia, CAD with multivessel coronary disease with history of PCI/stents on aspirin, atorvastatin, Plavix, lisinopril, metoprolol and not on insulin who presents for evaluation of gross hematuria and back pain. On arrival, he was afebrile. Labs show a leukocytosis of 15.67, hemoglobin 12.1, creatinine acutely elevated to 4.69 (baseline around 1.1). UA uninterpretable due to urine color interference. CT abdomen pelvis obtained and demonstrated a large clot within the bladder of 8.8 x 8.0 x 7.9 cm with bilateral hydroureteronephrosis and a moderately enlarged prostate. Kennedy catheter placed for retention and currently draining w/hematuria. IV Rocephin given. Continued on aspirin for now, Plavix on hold in the setting of hematuria.Patient being admitted to medicine for further management. Recently seen as an outpatient by our service on 08/01/2022 for microscopic hematuria. Past history of gross hematuria diagnosed with hemorrhagic cystitis and a UTI for which she had a CT urogram in 2019 but has never had cystoscopy. He is a former smoker with 1.5 packs/day history intermittently for 20 years, quit approx 30 years ago. Was scheduled to follow-up for cystoscopy with Dr. Bella on 08/21. Reports first noticing blood in his urine this past Saturday. Had frankly bloody urine over the weekend. Also notes mild abdominal discomfort and pain now spread to upper back. Nothing to eat or drink in 3 days as BMs would cause him a great deal of pain. Last time he ate was Saturday at noon. Had some water at 5am today. Patient was examined at bedside in the emergency room. Awake, resting in bed on arrival. No acute distress. Kennedy catheter draining with hematuria. Currently NPO. Allergies Allergy/AdvReac Type Severity Reaction Status Date / Time No Known Allergies Allergy Verified 08/13/22 10:47 Home Medications Medication Instructions Recorded Confirmed Type aspirin 81 mg chewable tablet 1 tab PO QAM 12/02/18 08/13/22 History blood sugar diagnostic (Contour #10 ea 07/21/19 08/01/22 History Test Strips) lancets (Microlet Lancet) #100 ea 01/13/20 08/01/22 Rx chlorthalidone 25 mg tablet 12.5 mg PO BID #90 tabs 10/24/21 08/13/22 Rx lisinopril 40 mg tablet 40 mg PO QAM 12/19/21 08/13/22 History metformin 500 mg tablet,extended 500 mg PO BID #180 tabs 03/19/22 08/13/22 Rx release 24 hr amlodipine 10 mg tablet 10 mg PO DAILY #90 tabs 06/12/22 08/13/22 Rx metoprolol succinate 200 mg 200 mg PO BID #180 tabs 06/13/22 08/13/22 Rx tablet,extended release 24 hr clopidogrel 75 mg tablet 75 mg PO QAM #90 tabs 06/21/22 08/13/22 Rx atorvastatin 80 mg tablet 80 mg PO QAM #90 tabs 07/09/22 08/13/22 Rx Patient History Medical History CAD (coronary artery disease) Dyslipidemia Hypertension Low back pain Multi-vessel coronary artery stenosis Tubular adenoma of colon Type 2 diabetes mellitus in remission Surgical History H/O colonoscopy History of cardiac cath History of open reduction and internal fixation (ORIF) procedure Stented coronary artery Family History Father Non-Hodgkin's lymphoma Mother Multiple myeloma Sister Heart disease Hypertension Dyslipidemia Uncle Myocardial infarction Denies family history of Ovarian cancer Prostate cancer Breast cancer Colorectal cancer Social History Smoking Status: Former smoker Second Hand Exposure: Yes; Hx Alcohol Use: Yes (Occasional ) Alcohol type: beer Alcohol Intake Frequency: 2-4 x/Month Hx Substance Use: Yes Preferred Language: Congolese Communication Ability: Effective Visual Impairment: Limited Hearing Ability: Normal Slug Press Operator Required: Yes Beliefs That Will Affect Care: None marital status: Single Current Living Situation: Alone current occupational status: retired How many Children do You have: 0 Feels Safe at Home: Yes Childhood Exposure to Second-Hand Smoke: Yes caffeine: Yes Dental Care, Regularly: Yes Physical Activity Frequency: Daily Seatbelt Use: always Sunscreen Use: Yes Assistive Devices: None Review of Systems Review of Systems: All systems reviewed & are unremarkable except as noted in HPI & below Physical Exam Constitutional: well developed and well nourished; no acute distress Eyes: PERRL, conjunctivae normal, anicteric sclerae ENMT: external ear and nose normal, oropharynx normal Neck: normal visual inspection Respiratory: normal respiratory effort; no respiratory distress and no labored breathing Gastrointestinal (Abdomen): Inspection/Auscultation: abdomen not distended Percussion/Palpation: abdomen soft; abdomen nontender Musculoskeletal: Head/Neck/Chest: normocephalic Skin: No visible rashes or lesions to exposed skin areas Neurologic: moves all extremities and awake Psychiatric: A+Ox3, euthymic affect Genitourinary: Kennedy intact, draining with hematuria Results & Data Vital Signs (Past 12 Hours) Vital Signs Temp Pulse Resp BP Pulse Ox O2 Del Method 08/13/22 10:30 56 L 13 97 Room Air 08/13/22 10:00 56 L 22 08/13/22 09:55 59 L 19 97 Room Air 08/13/22 09:55 112/58 L 08/13/22 09:50 57 L 20 08/13/22 09:40 58 L 16 08/13/22 09:30 59 L 19 08/13/22 09:20 64 15 08/13/22 09:10 58 L 16 08/13/22 09:14 59 L 08/13/22 08:29 36.5 C 66 16 158/70 H 99 Room Air PG Care Time/CCT Total # of Minutes Spent Total Time Spent with Patient: Total time spent is greater than 50% in coordination of care (as documented) at patient's floor/unit and/or counseling patient: Coding Level of Care Code 83749 INT INP/OBS CARE 3/75MIN Diagnoses Hematuria R31.9 ARF (acute renal failure) N17.9 Hydronephrosis N13.30 Benign enlargement of prostate N40.0
--- NOTE | 2022-08-13 12:54 | Anesthesiology Consultation ---
Date of Service August 13, 2022 Assessment & Plan Chart Review Chart Review: Acceptable Risk for Surgery and Patient NOT seen in Pre Admission Testing Consults Requested none ASA ASA3 Proposed Anesthesia Anesthesia Type: General Risk / Benefits Reviewed With: PT / POA / Parent / Guardian, Accepts Plan and Informed Consent Obtained History Surgery Operation Date: 08/13/22 11:15 Proposed Procedures p Cystoscopy Clot Evacuation Fulguration, Bilateral Stent Placement - Faheem Krishnamurthy, DO Height/Weight Height: 5 ft 7 in Weight: 80.5 kg Allergies Allergy/AdvReac Type Severity Reaction Status Date / Time No Known Allergies Allergy Verified 08/13/22 10:47 Medications Home Medications Medication Instructions Recorded Confirmed Last Taken aspirin 81 mg chewable tablet 1 tab PO QAM 12/02/18 08/13/22 08/13/22 blood sugar diagnostic (Contour #10 ea 07/21/19 08/01/22 Unknown Test Strips) lancets (Microlet Lancet) #100 ea 01/13/20 08/01/22 Unknown chlorthalidone 25 mg tablet 12.5 mg PO BID #90 tabs 10/24/21 08/13/22 08/13/22 07:00 lisinopril 40 mg tablet 40 mg PO QAM 12/19/21 08/13/22 08/13/22 metformin 500 mg tablet,extended 500 mg PO BID #180 tabs 03/19/22 08/13/22 08/13/22 07:00 release 24 hr amlodipine 10 mg tablet 10 mg PO DAILY #90 tabs 06/12/22 08/13/22 08/13/22 metoprolol succinate 200 mg 200 mg PO BID #180 tabs 06/13/22 08/13/22 08/13/22 07:00 tablet,extended release 24 hr clopidogrel 75 mg tablet 75 mg PO QAM #90 tabs 06/21/22 08/13/22 08/13/22 atorvastatin 80 mg tablet 80 mg PO QAM #90 tabs 07/09/22 08/13/22 08/13/22 Active Medications Generic Name Dose Route Start Last Admin Trade Name Freq PRN Reason Stop Dose Admin Sodium Chloride 500 mls @ 125 mls/hr 08/13/22 08:45 08/13/22 08:58 Nss IV 09/12/22 08:44 125 mls/hr .Q4H MITCH Administration NPO Date Last Intake of Fluids: 08/13/22 Time Last Intake of Fluids: 05:30 Date Last Intake of Solids: 08/10/22 Time Last Intake of Solids: 12:00 Past Medical History Medical History CAD (coronary artery disease) Dyslipidemia Hypertension Low back pain Multi-vessel coronary artery stenosis Tubular adenoma of colon Type 2 diabetes mellitus in remission Exercise / Class Metabolic Activity II 4-5 Yardwork/Stairs/Walk up hill Past Family History Family History Father Non-Hodgkin's lymphoma Mother Multiple myeloma Sister Heart disease Hypertension Dyslipidemia Uncle Myocardial infarction Denies family history of Ovarian cancer Prostate cancer Breast cancer Colorectal cancer Past Surgical History Surgical History H/O colonoscopy History of cardiac cath History of open reduction and internal fixation (ORIF) procedure Stented coronary artery Past Anesthesia History No Hx of Anesthesia Complications and No Family Hx of Anesthesia Complications History of PONV No Hx of PONV and No Hx of Motion Sickness Social History Smoking Status: Former smoker Hx Alcohol Use: Yes (Occasional ) Alcohol type: beer Hx Substance Use: Yes substance use type: does not use Physical Exam Vital Signs Last Vital Signs Temp 37.1 C 08/13/22 12:43 Pulse 65 08/13/22 12:43 Resp 18 08/13/22 12:43 BP 208/82 H 08/13/22 12:43 Pulse Ox 100 08/13/22 12:43 O2 Del Method Room Air 08/13/22 12:43 ENMT Mouth: no dentition abnormality Thyromental Distance: > or= 3.5 Finger Breadths Mallampati Class: II Neck normal visual inspection Respiratory normal respiratory effort Auscultation: lungs clear to auscultation bilaterally Cardiovascular Rate/Rhythm: regular rate and regular rhythm Psychiatric Orientation: alert Testing Laboratory Results 08/13/22 09:00 08/13/22 09:00 Urine Color Red 08/13/22 Unknown Urine Appearance Turbid (Clear) A 08/13/22 Unknown Urine pH (4.5-7.5) 08/13/22 Unknown Ur Specific [place] 1.021 (1.000-1.030) 08/13/22 Unknown Urine Protein (Negative) 08/13/22 Unknown Urine Glucose (UA) (Negative) 08/13/22 Unknown Urine Ketones (Negative) 08/13/22 Unknown Urine Nitrite (Negative) 08/13/22 Unknown Ur Leukocyte Esterase (Negative) 08/13/22 Unknown Urine RBC >30 /hpf (0-4) H 08/13/22 Unknown Urine WBC >30 /hpf (0-5) H 08/13/22 Unknown Ur Epithelial Cells Not Reportable 08/13/22 Unknown 08/13/22 12:41 POC Glucose 118 H
[2022-08-13] MEDS ORDERED: DIATRIZOATE MEGLUMINE 30% 100ML VIAL INSTIL ONE (14:18)
--- NOTE | 2022-08-13 14:57 | Fluoroscopy Report ---
FL retrograde includes kub CLINICAL HISTORY: B/L STENT PLACEMENTbilateral stent placement with hydronephrosis COMPARISON STUDY: CT abdomen and pelvis of same day FLUOROSCOPY TIME: 167 seconds. FLUOROSCOPY IMAGES: 3 EXPOSURE DOSE: Not given. FINDINGS: Bilateral ureteral stents have been present which appear to be in satisfactory positioning. Distended left-sided hydronephrosis. Contrast within the left hemipelvis, possibly extravasated outs ines of the urinary tract. IMPRESSION: Fluoroscopic assistance as above. ACT 112: Negative or not required by law. Electronically signed by: Koko Magaña M.D. 08/13/2022 2:56 PM
--- NOTE | 2022-08-13 15:13 | Operative Report ---
PG Post Operative Report Pre & Post Diagnosis Operation Date: 08/13/22 11:15 Pre-Op Diagnosis: Hematuria, Acute Renal Failure Post-Op Diagnosis: Hematuria, Acute Renal Failure I identified the patient and participated in the time-out.: Yes Procedure Operation Date: 08/13/22 11:15 Actual Procedures p Cystoscopy with Clot Evacuation and Fulguration and urethral dilation, Transurethral Resection of Bladder Tumor (Large) Bilateral Retrograde and Bilateral Ureteral Stent Placement Left ureteroscopy and ureteral dilation. 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 Significant stricture or blockage of the left distal UO/ureter. Stricture within the bulbar urethra. Significant prostate enlargement with large bleeding varicosities. Large amount of blood within the base of the bladder Specimens Resection of bladder wall right trigone/lateral wall. Deep resection Resection of bladder neck Drains 7 Fr x [address] Anesthesia Type General Complications none Disposition Disposition: Recovery Room Indications Patient with bladder tumor. Risks and benefits discussed at length. Description of Procedure Patient was consented and brought back to the operating room. Patient was placed under anesthesia in the supine position and moved to the dorsal lithotomy position. Patient was prepped and draped in the regular sterile fashion. A time out was completed. A 30degree Cystoscope was placed into the urethra and advanced to the bulbar urethra where significant stricture was noted. A wire was utilized to within transverse the lumen and the area was dilated. The scope was then advanced. The prostate was discovered to be extremely large with large varicosities and multiple areas of bleeding. Within the bladder there was an extremely large amount of clot material. This was first irrigated and then evacuated. The bleeding edges on the bladder neck as well as within the prostatic urethra were fulgurated using the fine bipolar loop and the resection scope. Once bleeding was controlled and a majority of the clot was cleared out the entire bladder was able to be fully visualized. Within the bladder there was an extremely large bladder tumor with multiple areas of bleeding noted throughout the tumor. The tumor was all along the right lateral wall right trigone and moving towards the bladder neck and moving towards the midline on the trigone. 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 Multiple diverticulum found to have a large amount of clot which need to be irrigated further. Due to the bleeding of the tumor this appeared to be the most likely source of the initial bleed. The UO's were identified as well as the bladder neck, trigone, dome, and the other important landmarks. The tumor involved the right UO which was unable to be fully visualized. A large amount of edema as well as large varicosities were noted near the left UO. The resection scope with the fine bipolar loop was selected. The entire tumor was assessed. The tumor was resected. Deep resection specimens were sent separately. The bulk of the tumor was removed and sent for analysis. The resection bed and edges of the resection were fulgurated and the entire area inspected. Additional tumor had to be resected closer to the bladder neck. This was also sent separately. All bleeding was controlled. Numerous areas of diverticulum were noted throughout the bladder. Additional material had to be irrigated out. The edges of the resection were completely fulgurated. The resection was able to unearth the right ureter. Resection had to be taken over top of the ureter due to involvement of tumor. A ureteral catheter was then placed and over the resected area. A retrograde pyelogram was completed. The wire was then able to be placed into the renal pelvis. A 7 Polish by 28 double-J ureteral stent was placed over the wire and into the renal pelvis with good return. This was set to drainage. Attention was then taken over to the left side. This appeared to be considerably more difficult to access largely due to the significantly elevated bladder neck and large prostate causing considerable J hooking of the ureter. Multiple attempts passed the wire when able to was be successful. At one point the wire was able to partially be placed into the ureter and a retrograde pyelogram was able to be completed with a significantly tortuous and dilated ureter being observed. The wire was maintained and a long rigid ureteroscope was selected. The scope was then taken into the right UO. Immediately there was a considerable area of stricture and considerable curvature of the ureter. This area was dilated and the wire was maintained. At this point the 5 Polish open-ended catheter was able to be advanced and taken into the renal pelvis. A retrograde pyelogram was then completed and good positioning was noted. The wire was maintained and a 7 Polish double-J ureteral stent was placed into the renal pelvis on the left side as well. This was all set to drainage. The bladder was inspected a final time. Numerous areas had to be read fulgurated and multiple areas of mild bleeding were able to be cauterized and controlled. The bladder was emptied. After the final inspection no major areas of bleeding or concern. Patient does have an extremely large prostate as well as considerable swelling and irritation. Was continued to have some mild oozing from the bladder neck and from the prostatic urethra. The areas of dilation at the left UO as well as within the bulbar urethra were assessed and no major areas of bleeding or major issues. The bleeding varicosities on the bladder neck had drastically improved. And the bleeding from the large tumor has been controlled by the resection of the tumor. The scope was removed. A 22 Polish three-way catheter was placed over the wire which had been maintained in the bladder and set to drainage. Continuous bladder irrigation was then initiated. The area was irrigated easily without major problems The patient was cleaned, aroused from anesthesia, and transferred to the pacu in stable condition having tolerated the procedure well with no complications. I was present and participated in all aspects of the procedure. The patient will be monitored in the PACU until transferred. We will plan to maintain the ureteral stents as well as the catheter for the next 1 to 2 weeks. We will await the pathology results and plan on neck steps in management depending on results of final pathology. I attest to the content of the Intraoperative Record and any orders documented therein. Any exceptions are noted below.
[2022-08-13] MEDS ORDERED: GLUCOSE 10 TAB/TUBE PO PRN (16:13)
[2022-08-13] MEDS ORDERED: GLUCAGON FOR INJ 1 MG VIAL SQ PRN (16:13)
[2022-08-13] MEDS ORDERED: GLUCOSE 40% GEL 15 GM TUBE PO PRN (16:13)
[2022-08-13] MEDS ORDERED: CARBOHYDRATES FOR HYPOGLYCEMIA PO PRN (16:13)
[2022-08-13] MEDS ORDERED: DEXTROSE 50% 50 ML SYRINGE IV PRN (16:13)
--- NOTE | 2022-08-13 16:22 | Anesthesiology Progress Note ---
Date of Service August 13, 2022 Anesthesia Post Procedure Vital Signs Vital Signs: Temp Pulse Pulse Pulse Resp BP BP 08/13/22 15:35 36.8 C 58 L 17 152/60 H 08/13/22 15:25 60 17 151/68 H 08/13/22 15:15 62 12 166/67 H 08/13/22 15:06 36.5 C 56 L 20 178/68 H 08/13/22 12:43 37.1 C 65 18 208/82 H 08/13/22 10:30 56 L 13 08/13/22 10:00 56 L 22 08/13/22 09:55 59 L 19 08/13/22 09:55 112/58 L 08/13/22 09:50 57 L 20 08/13/22 09:40 58 L 16 08/13/22 09:30 59 L 19 08/13/22 09:20 64 15 08/13/22 09:10 58 L 16 08/13/22 09:14 59 L 08/13/22 08:29 36.5 C 66 16 158/70 H Pulse Ox O2 Del Method O2 Flow Rate 08/13/22 15:35 95 Room Air 08/13/22 15:25 100 Oxymask 5 08/13/22 15:15 100 Oxymask 9 08/13/22 15:06 100 Oxymask 9 08/13/22 12:43 100 Room Air 08/13/22 10:30 97 Room Air 08/13/22 10:00 08/13/22 09:55 97 Room Air 08/13/22 09:55 08/13/22 09:50 08/13/22 09:40 08/13/22 09:30 08/13/22 09:20 08/13/22 09:10 08/13/22 09:14 08/13/22 08:29 99 Room Air Transfer of Care Handoff Completed per policy Notes Mental Status: alert / awake / arousable Patient Amnestic to Procedure: Yes Nausea / Vomiting: adequately controlled Pain: adequately controlled Airway Patency, RR, SpO2: stable & adequate BP & HR: stable & adequate Hydration State: stable & adequate Anesthetic Complications: no major complications apparent
[2022-08-13] MEDS: INSULIN ASPART PER UNIT CHARGE SC SCH ×2 (17:00→20:26)
[2022-08-13 18:15] LABS: Calcium 8.6 mg/dl (8.6-10.3); Creatinine Clr Calc Pharmacy 17.8 ml/min; Est GFR (African American) 18.5 ml/min; Potassium 4.2 mmol/L (3.5-5.1)
[2022-08-13] MEDS: LANTUS PER UNIT CHARGE SQ SCH (20:39)
[2022-08-13] MEDS: METOPROLOL SUCC 50MG EXT REL TAB PO SCH (20:41)
[2022-08-14] MEDS: SODIUM CHLORIDE 0.9% 500 ML IV SCH ×4 (00:23→15:10)
[2022-08-14 07:43] LABS: Calcium 7.3 mg/dl (8.6-10.3); Creatinine Clr Calc Pharmacy 28.9 ml/min; Est GFR (Non-African American) 27.6 ml/min; Potassium 3.8 mmol/L (3.5-5.1)
[2022-08-14 07:44] LABS: Basophils # (auto) 0.02 K/uL (0-0.2); Basophils % (auto) 0.2 %; Eosinophils # (auto) 0.01 K/uL (0-0.50); Eosinophils % (auto) 0.1 %; Hematocrit (blood only) 25.3 % (42.0-52.0); Hemoglobin 8.6 g/dl (14.0-18.0); Immature Granulocytes # (auto) 0.03 K/uL (0.01-0.20); Immature Granulocytes % (auto) 0.3 %; Lymphocytes # (auto) 1.37 K/uL (1.2-3.4); Lymphocytes % (auto) 15.3 %; Mean Corpuscular Hemoglobin 30.5 pg (25.0-34.0); Mean Corpuscular Volume 89.7 fL (80.0-100.0); Monocytes # (auto) 0.79 K/uL (0.11-0.59); Monocytes % (auto) 8.8 %; Neutrophils # (auto) 6.75 K/uL (1.40-6.50); Neutrophils % (auto) 75.3 %; Platelet Count 105 K/uL (130-400); RDW Coefficient of Variation 13.1 % (11.5-14.5); RDW Standard Deviation 42.9 fL (36.4-46.3); Red Blood Count 2.82 M/uL (4.70-6.10); White Blood Count 8.97 K/ul (4.8-10.8)
[2022-08-14] MEDS: INSULIN ASPART PER UNIT CHARGE SC SCH ×4 (08:40→20:08)
[2022-08-14] MEDS: ATORVASTATIN 40 MG TAB PO SCH (08:54)
[2022-08-14] MEDS: METOPROLOL SUCC 50MG EXT REL TAB PO SCH ×2 (08:54→20:23)
[2022-08-14] MEDS: ASPIRIN 81 MG ECTAB PO SCH (08:54)
[2022-08-14 09:01] LABS: Estimated Average Glucose 114 mg/dl; Hemoglobin A1C 5.6 % (4.5-5.6)
[2022-08-14] MEDS: LANTUS PER UNIT CHARGE SQ SCH ×2 (09:07→20:24)
[2022-08-14] MEDS: amLODIPine BESYLATE 5 MG TAB PO SCH (09:41)
[2022-08-14] MEDS ORDERED: cefTRIAXone SODIUM 2,000 MG in DEXTROSE 5% 50 ML IV ONE (10:00)
--- NOTE | 2022-08-14 11:58 | Urology Progress Note ---
Date of Service August 14, 2022 Assessment & Plan (1) Hematuria: (2) ARF (acute renal failure): (3) Hydronephrosis: (4) Benign enlargement of prostate: Plan 77yo/M admitted with gross hematuria, acute renal failure. CT abdomen pelvis on arrival demonstrated a large clot within the bladder of 8.8 x 8.0 x 7.9 cm with bilateral hydroureteronephrosis and a moderately enlarged prostate. Postop day #1 s/p Cystoscopy with Clot Evacuation, Fulguration, urethral dilation, Transurethral Resection of Bladder Tumor (Large), Bilateral Retrograde and Bilateral Ureteral Stent Placement, Left ureteroscopy and ureteral dilation with Dr. Krishnamurthy. Subjectively feeling better today, tolerating the ureteral stents and catheter with minimal bother. Afebrile, Labs reviewed-leukocytosis improved, hemoglobin 8.6 today (12.1 on admit), creatinine improved to 2.24. Continue to trend. Urine culture pending, on IV Rocephin. Follow culture and tailor as data becomes available. 3-way Kennedy catheter intact, patent and draining light pink urine with CBI on slow. Maintain Kennedy catheter. Continue CBI, can titrate as needed. We will plan to maintain the ureteral stents as well as the catheter for the next 1-2 weeks. We will arrange outpatient follow-up with our service for continued care and pathology review. Will determine next steps in management depending on results of final pathology. Urology will follow. Admission and Anticipated Discharge Date Admission Date: August 13, 2022 Subjective Patient examined at bedside this AM. Awake, resting in bed on arrival. No acute distress. Denies any pain or discomfort. No fevers. Overall states he is feeling better. Tolerating diet, no nausea or vomiting. Kennedy catheter intact, draining light pink urine with CBI on slow. Review of Systems Constitutional: as per Subjective / HPI Gastrointestinal: as per Subjective / HPI Genitourinary: + as per Subjective / HPI Physical Exam Constitutional: no acute distress Respiratory: normal respiratory effort; no respiratory distress and no labored breathing Skin: No visible rashes or lesions to exposed skin areas Neurologic: moves all extremities and awake Psychiatric: A+Ox3, euthymic affect Genitourinary: Kennedy catheter intact, draining light pink urine with CBI on slow Results & Data Vital Signs (Past 12 Hours) Vital Signs Temp Pulse Pulse Resp BP Pulse Ox O2 Del Method 08/14/22 08:00 59 L 08/14/22 07:46 36.8 C 45 L 18 121/64 98 Room Air 08/14/22 02:38 36.6 C 60 18 105/53 L 97 Room Air 08/14/22 00:21 61 PG Care Time/CCT Total # of Minutes Spent Total Time Spent with Patient: Total time spent is greater than 50% in coordination of care (as documented) at patient's floor/unit and/or counseling patient: Coding Level of Care Code 61633 SUB INP/OBS CARE 2/35MIN Diagnoses Hematuria R31.9 ARF (acute renal failure) N17.9 Hydronephrosis N13.30 Benign enlargement of prostate N40.0
--- NOTE | 2022-08-14 16:30 | Hospitalist Progress Note ---
Date of Service August 14, 2022 Assessment & Plan (1) Hematuria: Plan: Now resolving. Postoperative day #1 after cystoscopy . Appreciate urology consultation and recommendations. Urine culture is negative. Rocephin has been discontinued. (2) Multi-vessel coronary artery stenosis: Plan: Stable. Continue current medical management . Atorvastatin and amlodipine have been restarted (3) Dyslipidemia: Plan: Stable. Continue Statin (4) Type 2 diabetes mellitus in remission: Plan: ADA diet. Sliding scale coverage as needed. Resume metformin at discharge. (5) Hypertension: Plan: Stable. Continue current medical management (6) Benign enlargement of prostate: Plan: Stable. Continue current medical management. (7) ARF (acute renal failure): Plan: Acute on chronic kidney disease present on admission. Creatinine is improving. Continue IV fluids. Monitor intake and output. Serial labs (8) Acute blood loss anemia: Plan: Hemoglobin is drifted down to 8.6 with IV fluid rehydration. No indication for transfusion at this time. We will follow Plan Anticipate eventual discharge to home. Possibly tomorrow, August 15 Admission and Anticipated Discharge Date Admission Date: August 13, 2022 Subjective Alert and oriented. Creatinine is down to 2.2. IV fluids have been tapered down. Urine culture is negative and Rocephin has been discontinued. Postoperative day #1 after cystoscopy. Hematuria has nearly resolved. Hemoglobin is drifted down to 8.6. We will follow Review of Systems Review of Systems: Constitutional-no fever or chills ENT-no blurred vision, no double vision, no epistaxis, no sore throat Respiratory-no cough, no wheezing, no shortness of breath Cardiac-no palpitations, no chest pain, no syncope GI-no nausea, vomiting, diarrhea, melena, hematochezia -no urinary retention, no urinary incontinence, no dysuria, no hematuria Musculoskeletal-no joint pain, no muscle tenderness Skin-no bruising, no rashes, no pruritus Neuro-no isolated weakness, no paresthesia, no weakness Psych-no depression, no anxiety Physical Exam Physical Exam: General-alert and oriented x3, no fevers, no chills HEENT-head atraumatic and normocephalic, pupils equal and reactive to light, extraocular muscles intact Neck-no lymphadenopathy or thyromegaly, trachea midline Chest-clear to auscultation percussion. No rales wheezing or rhonchi Cardiac-regular rate and rhythm, normal S1 and S2 Abdomen-normal bowel sounds, nontender, no hepatosplenomegaly GUFoley catheter in place. Hematuria is resolving Extremities-no cyanosis, clubbing, or edema Neuro-cranial nerves II through XII intact, motor and sensory function within normal limits, strength symmetrical , no focal deficits Psych-normal affect, normal mood Results & Data Results & Data Vital Signs (Past 12 Hours) Vital Signs Temp Pulse Pulse Resp BP Pulse Ox O2 Del Method 08/14/22 16:09 37.2 C 62 18 107/42 L 93 Room Air 08/14/22 12:13 37.1 C 58 L 18 116/45 L 94 Room Air 08/14/22 08:00 59 L 08/14/22 07:46 36.8 C 45 L 18 121/64 98 Room Air Laboratory Results 08/14/22 06:56 08/14/22 06:56 PG Care Time/CCT Total # of Minutes Spent Total Time Spent with Patient: Total time spent is greater than 50% in coordination of care (as documented) at patient's floor/unit and/or counseling patient: Coding Level of Care Code 59940 SUB INP/OBS CARE 3/50MIN Diagnoses Hematuria R31.9 Multi-vessel coronary artery stenosis I25.10 Dyslipidemia E78.5 Type 2 diabetes mellitus in remission E11.9 Hypertension I10 Benign enlargement of prostate N40.0 ARF (acute renal failure) N17.9 Acute blood loss anemia D62
[2022-08-15] MEDS: SODIUM CHLORIDE 0.9% 500 ML IV SCH ×2 (02:59→05:46)
[2022-08-15 07:41] LABS: Basophils # (auto) 0.03 K/uL (0-0.2); Basophils % (auto) 0.5 %; Eosinophils # (auto) 0.07 K/uL (0-0.50); Eosinophils % (auto) 1.1 %; Hematocrit (blood only) 24.7 % (42.0-52.0); Hemoglobin 8.2 g/dl (14.0-18.0); Immature Granulocytes # (auto) 0.02 K/uL (0.01-0.20); Immature Granulocytes % (auto) 0.3 %; Lymphocytes # (auto) 1.67 K/uL (1.2-3.4); Lymphocytes % (auto) 26.1 %; Mean Corpuscular Hemoglobin 29.7 pg (25.0-34.0); Mean Corpuscular Hgb Conc 33.2 g/dL (32.0-36.0); Mean Corpuscular Volume 89.5 fL (80.0-100.0); Mean Platelet Volume 11.1 fL (9.4-12.4); Monocytes # (auto) 0.52 K/uL (0.11-0.59); Monocytes % (auto) 8.1 %; Neutrophils # (auto) 4.09 K/uL (1.40-6.50); Neutrophils % (auto) 63.9 %; Platelet Count 115 K/uL (130-400); RDW Coefficient of Variation 12.7 % (11.5-14.5); RDW Standard Deviation 41.6 fL (36.4-46.3); Red Blood Count 2.76 M/uL (4.70-6.10)
[2022-08-15] MEDS: METOPROLOL SUCC 50MG EXT REL TAB PO SCH (07:57)
[2022-08-15] MEDS: INSULIN ASPART PER UNIT CHARGE SC SCH ×2 (07:57→11:57)
[2022-08-15] MEDS: ATORVASTATIN 40 MG TAB PO SCH (07:57)
[2022-08-15] MEDS: ASPIRIN 81 MG ECTAB PO SCH (07:57)
[2022-08-15] MEDS: LANTUS PER UNIT CHARGE SQ SCH (08:00)
[2022-08-15 08:18] LABS: BUN Creatinine Ratio 23.1 (10-20); Calcium 7.5 mg/dl (8.6-10.3); Creatinine Clr Calc Pharmacy 49.7 ml/min; Est GFR (African American) 61.9 ml/min; Est GFR (Non-African American) 53.4 ml/min; Potassium 3.6 mmol/L (3.5-5.1)
[2022-08-15] MEDS: amLODIPine BESYLATE 5 MG TAB PO SCH (08:51)
--- NOTE | 2022-08-15 10:45 | Urology Progress Note ---
Date of Service August 15, 2022 Assessment & Plan (1) Hematuria: (2) ARF (acute renal failure): (3) Hydronephrosis: (4) Benign enlargement of prostate: Plan 77yo/M admitted with gross hematuria, acute renal failure. CT abdomen pelvis on arrival demonstrated a large clot within the bladder of 8.8 x 8.0 x 7.9 cm with bilateral hydroureteronephrosis and a moderately enlarged prostate. Postop day #2 s/p Cystoscopy with Clot Evacuation, Fulguration, urethral dilation, Transurethral Resection of Bladder Tumor (Large), Bilateral Retrograde and Bilateral Ureteral Stent Placement, Left ureteroscopy and ureteral dilation with Dr. Krishnamurthy. Subjectively feels well, tolerating the ureteral stents and catheter with minimal bother. Afebrile, Labs reviewed- wbc 6.40, hemoglobin 8.2 (8.6 yesterday), creatinine improved to 1.30. Continue to trend. Urine culture negative. Rocephin has been discontinued. Kennedy intact, urine is pink tinged on slow CBI. Will clamp CBI this morning and monitor, nursing aware. Will reassess later this morning. Maintain Kennedy catheter. Continue supportive care. We will plan to maintain the ureteral stents as well as the catheter for the next 1-2 weeks. We will arrange outpatient follow-up with our service for continued care and pathology review. Urology will follow. Admission and Anticipated Discharge Date Admission Date: August 13, 2022 Subjective Patient examined at bedside this AM. Awake, resting in bed on arrival. No acute distress. Denies any pain or discomfort. No fevers. Tolerating diet, no nausea or vomiting. Kennedy catheter intact, draining pink tinged urine with CBI on slow. Review of Systems Constitutional: as per Subjective / HPI Gastrointestinal: as per Subjective / HPI Genitourinary: + as per Subjective / HPI Physical Exam Constitutional: no acute distress Respiratory: normal respiratory effort; no respiratory distress and no labored breathing Skin: No visible rashes or lesions to exposed skin areas Neurologic: moves all extremities and awake Psychiatric: A+Ox3, euthymic affect Genitourinary: Kennedy catheter intact, draining light pink urine with CBI on slow Results & Data Vital Signs (Past 12 Hours) Vital Signs Temp Pulse Pulse Resp BP Pulse Ox O2 Del Method 08/15/22 07:38 36.8 C 58 L 18 145/65 H 95 Room Air 08/15/22 02:39 36.9 C 60 18 135/62 95 Room Air 08/14/22 23:07 37.1 C 60 18 143/55 H 94 Room Air 08/14/22 22:49 61 PG Care Time/CCT Total # of Minutes Spent Total Time Spent with Patient: Total time spent is greater than 50% in coordination of care (as documented) at patient's floor/unit and/or counseling patient: Coding Level of Care Code 25910 SUB INP/OBS CARE 2/35MIN Diagnoses Hematuria R31.9 ARF (acute renal failure) N17.9 Hydronephrosis N13.30 Benign enlargement of prostate N40.0
--- NOTE | 2022-08-15 12:57 | Discharge Summary ---
Date of Service August 15, 2022 Admission HPI Per Admitting Provider Neo is a 77-year-old male with a past medical history of type 2 diabetes mellitus, anemia, CAD with multivessel coronary disease with history of PCI/stents on aspirin, atorvastatin, Plavix, lisinopril, metoprolol and not on insulin who presents for evaluation of hematuria and back pain. CT shows a large clot within the bladder of 8.8 x 8.0 x 7.9 cm with bilateral hydroureteronephrosis and a moderately enlarged prostate. Creatinine is acutely elevated from a normal baseline of less than 1.2 to 4.69. Urinalysis is limited due to high number of red and white blood cells and significant coloration limiting analysis. Kennedy placed for retention with gross hematuria. Hx of hemorrhagic cystitis Rocephin empiric coverage Hx former tobacco Previously seen by urology 08/01/2022 for microscopic hematuria, with a past history of gross hematuria diagnosed with hemorrhagic cystitis and a UTI for which she had a CT urogram in 2019 but has never had cystoscopy. 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 And was scheduled to follow-up for cystoscopy with Dr. Bella. Similar sx a few years ago with a UTI which improved with antibiotics. Thought he might have a UTI. Was not having any blood in his urine until this past Saturday. Had frankly bloody urine 2 days prior to admission, but was the weekend so could not call PCP. Hx ND 2-3 years ago, notes Dr. 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 Has 2 stents. No pain since then. Uses an exercise bike with a ski bike which he does several times per week for leg strength and fitness, no history of chest pain/shortness of breath/chest pressure and has been hiking recently with no anginal symptoms. Other than hematuria no other bleeding Was scheduled for cystoscopy with Dr. Bella on August 21 No lightheadedness. Some dizziness on Saturday with some mild discomfort in his abdomen. This morning the pain spread into his upper back on the L side and was worried about his kidneys so came in to be seen. Has total 500mg tablets x2 last night for back pain last night, otherwise no OTC treatment Denies NSAID treament. Intentional weight loss got to 160lbs. Nothing to eat or drink in 3 days as BMs would cause him a great deal of pain. Last time he ate was Saturday at noon has some fish/vegetable fish. Had some water 5am as was tryin to stay hydrated, otherwise nothign to eat or drink since. Medical History: Reviewed Medications: Reviewed Surgical History: Reviewed Family history: Reviewed Allergies: Reviewed Social History: Quit tobacco 31 years ago, former ~1-1.5ppd for 20 years intermittently prior. Rare social etoh. Code Status: Full Code Principal Diagnosis Gross hematuria, obstructive uropathy with bladder clot, acute on chronic kidney disease Discharge Exam General-alert and oriented x3, no fevers, no chills HEENT-head atraumatic and normocephalic, pupils equal and reactive to light, extraocular muscles intact Neck-no lymphadenopathy or thyromegaly, trachea midline Chest-clear to auscultation percussion. No rales wheezing or rhonchi Cardiac-regular rate and rhythm, normal S1 and S2 Abdomen-normal bowel sounds, nontender, no hepatosplenomegaly GUFoley catheter in place. Hematuria is resolving Extremities-no cyanosis, clubbing, or edema Neuro-cranial nerves II through XII intact, motor and sensory function within normal limits, strength symmetrical , no focal deficits Psych-normal affect, normal mood Discharge Data Allergies Allergy/AdvReac Type Severity Reaction Status Date / Time No Known Allergies Allergy Verified 08/13/22 10:47 Consultations 08/13/22 10:50 ED Decision to Admit Stat 08/13/22 16:13 Consult Urology Routine Procedures Performed Operation Date: 08/13/22 11:15 Actual Procedures p Cystoscopy, Clot Evacuation and Fulguration, Transureteral Resection of Bladder Tumor (Large), Bilateral Retrograde, Left Ureteroscopy and Dilation, Bilateral Ureteral Stent Placement(Bilateral) - Faheem Krishnamurthy, Ordered Studies 08/13/22 [place] retrograde includes kub Routine 08/13/22 09:58 CT abd pelvis wo con Stat Hospital Course (1) Hematuria: Resolved. Postoperative day #2 after cystoscopy . Appreciate urology consultation and recommendations. Urine culture is negative. Rocephin has been discontinued. (2) Multi-vessel coronary artery stenosis: Stable. Continue current medical management . Atorvastatin and amlodipine have been restarted (3) Dyslipidemia: Stable. Continue Statin (4) Type 2 diabetes mellitus in remission: ADA diet. Sliding scale coverage as needed. Resume metformin at discharge. (5) Hypertension: Stable. Continue current medical management (6) Benign enlargement of prostate: Stable. Continue current medical management. (7) ARF (acute renal failure): Acute on chronic kidney disease present on admission. Creatinine is now back to baseline. IV fluids have been discontinued. Monitor intake and output. Serial labs while hospitalized (8) Acute blood loss anemia: Hemoglobin has drifted down but no transfusion needed. Should recover uneventfully. No indication for transfusion at this time. Plan Discharge to home todayAugust 15 Total Time Total Time Spent Total Time Spent (In Minutes): 40 minutes Discharge Plan Discharge Items Patient Disposition: Home - Self-Care Reason For Visit: ARF, OBSTRUCTIVE UROPATHY, HEMMORHAGIC CYSTITIS Discharge Diagnosis: Gross hematuria, obstructive uropathy, bladder thrombus, acute on chronic kidney disease Activity: Resume your previous activity Non-emergency contact: Primary Care Provider Call non-emergency contact if: you have any medication questions and your symptoms worsen Follow-up/Referrals: Delmi Umanzor MD [Primary Care Provider] - Diet: Carb Consistent or DM2 and Heart Healthy Addtl Attending Provider Instructions: All medications remain the same. Follow-up with urology in 2 weeks Pending Studies at Discharge: No Stand-Alone Forms: My [facility], Smoking Cessation Medications and DC Order Prescriptions: Continued chlorthalidone 25 mg tablet 12.5 mg PO BID Qty: 90 3RF metformin 500 mg tablet extended release 24 hr 500 mg PO BID Qty: 180 3RF Rx Instructions: PER PT "SINCE DIET IS MUCH BETTER, DO NOT ALWAYS TAKE SECOND DOSE OF METFORMIN". amlodipine 10 mg tablet 10 mg PO DAILY Qty: 90 3RF metoprolol succinate 200 mg tablet extended release 24 hr 200 mg PO BID Qty: 180 3RF clopidogrel 75 mg tablet 75 mg PO QAM Qty: 90 3RF atorvastatin 80 mg tablet 80 mg PO QAM Qty: 90 3RF (DME) lancets [Microlet Lancet] Misc See Dose Instructions .ROUTE .MEDSUPPLY Qty: 100 3RF Dose Instruction: As directed Rx Instructions: TEST ONCE DAILY. aspirin 81 mg tablet,chewable 1 tab PO QAM (DME) Contour Test Strips Strip See Dose Instructions .ROUTE .MEDSUPPLY Qty: 10 Rx Instructions: TEST ONCE DAILY lisinopril 40 mg tablet 40 mg PO QAM Discharge Orders: Discharge Order (Routine); Ordered 08/15/22 Ordered By: Wero Cole Admission Data Admit Date/Time: 08/13/22 12:21 Attending Provider: Wero Cole Admit Provider: Agustín Garner Primary Care Provider: Delmi Umanzor Other Providers: Agustín Garner ; Faheem Krishnamurthy Coding Level of Care Code 82268 INP/OBS DISCH >30 MIN Diagnoses Hematuria R31.9 Multi-vessel coronary artery stenosis I25.10 Dyslipidemia E78.5 Type 2 diabetes mellitus in remission E11.9 Hypertension I10 Benign enlargement of prostate N40.0 ARF (acute renal failure) N17.9 Acute blood loss anemia D62
--- NOTE | 2022-08-21 10:13 | Coding Query ---
PATHOLOGY To promote full compliance with coding requirements relating to patient care, physician participation is requested in all cases of infantry unit leader uncertainty. Please assist us with the question(s) below: Please review the Pathology report and please document any relevant diagnosis(es) below: Diagnosis(es): Bladder Cancer. Thank you April HOLT
== END 2022-08-15 14:17 | disposition home or self-care (01) | DRG 657 ==
LOC: ED 08:27 → 2S 12:20 → OR 12:20 → 2S 12:21 → SUATTDRO 12:21

== ENCOUNTER 2022-08-30 17:08 | Inpatient (IN) ==
[2022-08-30 17:48] LABS: Basophils # (auto) 0.03 K/uL (0-0.2); Basophils % (auto) 0.2 %; Hematocrit (blood only) 36.6 % (42.0-52.0); Immature Granulocytes # (auto) 0.03 K/uL (0.01-0.20); Immature Granulocytes % (auto) 0.2 %; Lymphocytes # (auto) 1.55 K/uL (1.2-3.4); Lymphocytes % (auto) 12.8 %; Mean Corpuscular Hemoglobin 28.5 pg (25.0-34.0); Mean Corpuscular Hgb Conc 32.8 g/dL (32.0-36.0); Mean Corpuscular Volume 86.9 fL (80.0-100.0); Mean Platelet Volume 10.3 fL (9.4-12.4); Monocytes # (auto) 0.41 K/uL (0.11-0.59); Monocytes % (auto) 3.4 %; Neutrophils # (auto) 10.11 K/uL (1.40-6.50); Neutrophils % (auto) 83.4 %; Platelet Count 437 K/uL (130-400); RDW Coefficient of Variation 13.2 % (11.5-14.5); RDW Standard Deviation 41.3 fL (36.4-46.3); Red Blood Count 4.21 M/uL (4.70-6.10); White Blood Count 12.13 K/ul (4.8-10.8)
[2022-08-30 18:10] LABS: Albumin Globulin Ratio 1.1 (0.9-2); BUN Creatinine Ratio 22.9 (10-20); Bilirubin,Total 0.4 mg/dl (0.2-1.0); Calcium 9.5 mg/dl (8.6-10.3); Creatinine Clr Calc Pharmacy 32.2 ml/min; Est GFR (Non-African American) 36.3 ml/min; Globulin 3.7 gm/dl (2.5-4.0); Potassium 4.3 mmol/L (3.5-5.1); Total Protein 7.7 gm/dl (6.0-8.3)
--- NOTE | 2022-08-30 18:34 | XRay Report ---
KUB HISTORY: Acute generalized abdominal pain with reported constipation constipation COMPARISON: CT 08/28/2022 FINDINGS: Nonobstructive bowel gas pattern. Mild colonic fecal retention. There are a few nondilated contrast filled loops of bowel within the right abdomen. Bilateral ureteral stents appear to be in s atisfactory positioning. Renal shadows are partially obscured by bowel gas. 3 mm calcification of the abdominal right upper quadrant again noted. No renal or ureteral calculi identified. No pneumoperito neum or pneumatosis. No fracture. IMPRESSION: 1. Nonobstructive bowel gas pattern without radiographic evidence of constipation. 2. Bilateral ureteral stents in place. No ureteral calculi identified. ACT 112: Negative or not required by law. The above report was generated using voice recognition software. It may contain grammatical, syntax o r spelling errors. Electronically signed by: Koko Magaña M.D. 08/30/2022 6:32 PM
[2022-08-30] MEDS ORDERED: SODIUM CHLORIDE 0.9% 1000ML 1,000 ML IV ONE (18:35)
--- NOTE | 2022-08-30 18:38 | Emergency Department Note ---
Impression & Plan Abdominal pain, Complicated urinary tract infection, Leukocytosis, Acute urinary retention ED Provider Note NAME: RAKEL DELA CRUZ AGE: 77 SEX: M : 1945 ARRIVES VIA: Walk-In INFORMANT: Patient ED PROVIDER(S): Jarrod Whalen DO CHIEF COMPLAINT: abdominal pain LLQ HPI: Patient is a 77-year-old male who presents to the ER for abdominal pain in the left lower quadrant. He has a past medical history of hypertension, CAD, diabetes and renal failure. He notes the pain has been present for the past 3 to 4 days. He is having trouble moving his bowels. Did have recent bladder surgery for bladder cancer. He is known about this for the past several weeks. Surgery was about 2 weeks ago. He is following with urology. He notes he is having some trouble urinating. No dysuria but does admit to trouble starting his stream. He is only dribbling intermittently. PAST MEDICAL HISTORY:See Below PAST SURGICAL HISTORY:See Below FAMILY HISTORY:See Below SOCIAL HISTORY:See Below HOME MEDICATIONS:See Below ALLERGIES:See Below VITALS:See Below PHYSICAL EXAMINATION: GENERAL: Sitting up in bed, alert, well appearing, well nourished, no distress, non-toxic EYE EXAM: normal conjunctiva. OROPHARYNX: no exudate, no erythema, lips, buccal mucosa, and tongue normal and mucous membranes are moist NECK: supple, no nuchal rigidity, no adenopathy, non-tender LUNGS: Clear to auscultation. Normal chest wall mechanics HEART: no murmurs, S1 normal and S2 normal ABDOMEN: abdomen soft, non-tender, normo-active bowel sounds, no masses, no rebound or guarding. UPPER EXTREMITIES: upper extremities are grossly normal. LOWER EXTREMITIES: No pitting edema. NEURO EXAM: Normal sensorium, cranial nerves II-XII grossly intact, normal speech, no gross weakness of arms, no gross weakness of legs. MEDICAL DECISION MAKING: Patient is a 77-year-old male who presents ER for above-stated complaint. IV was established blood work was obtained. External records were reviewed. Labs show mild leukocytosis of 12,000. No significant anemia. BMP with creatinine 1.79 up from baseline of 1.1. LFTs bilirubin was unremarkable. Lipase was normal. UA does suggest a UTI. COVID was negative. CT abdomen pelvis confirms bilateral stents. No other acute pathology. He was given IV Cipro after discussion with urology and a bladder scan which showed urinary retention following a Kennedy had greater than 1 L present. Patient was discussed with Dr. Goldsmith for further evaluation and admission. He was given IV fluids. Triage Nursing notes reviewed. Limited review of prior medical records performed Vital Signs: reviewed and remarkable for no significant abnormalities Differential diagnosis: Differential diagnoses includes but is not limited to gastritis, peptic ulcer disease, GERD, gallbladder disease, pancreatitis, small bowel obstruction, appendicitis, diverticulitis, hernia, urinary tract infection, torsion, perforation, trauma, infectious. ER treatment provided: See below Diagnostics interpreted by me include EKG and cardiac monitoring as listed below: -Cardiac Monitoring: An order was placed for continuous cardiac monitoring. The monitor shows a rate of 70 with sinus rhythm. -ECG: none -Laboratory studies:Interpreted by me as stated above in MDM and shown below. Imaging studies: Xrays: As interpreted by me: KUB shows stents in place CTs show: CT abdomen pelvis as described above Consultation(s): Patient was discussed with Hussein from urology who evaluate the patient at bedside. Discussed the case with China Goldsmith for admission and fu rther work-up Procedures:none Critical Care: None Past Med/Surg History Medical History CAD (coronary artery disease) Dyslipidemia Hypertension Low back pain Multi-vessel coronary artery stenosis Tubular adenoma of colon Type 2 diabetes mellitus in remission Surgical History H/O colonoscopy 08/2016, repeat 5 yrs History of cardiac cath ~3 years ago, "failed stress test, needed cath", [place] History of open reduction and internal fixation (ORIF) procedure Lt. Femur Stented coronary artery ~3 years ago, [facility], following cath at [facility], x1 stent (resolut summer) placed; now f/u Luis Manuel Beltran PA-C, [facility] Cardio. 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 Required: No Beliefs That Will Affect Care: None marital status: Single Current Living Situation: Alone current occupational status: retired How many Children do You have: 0 Feels Safe at Home: Yes Childhood Exposure to Second-Hand Smoke: Yes caffeine: Yes Dental Care, Regularly: Yes Physical Activity Frequency: Daily Seatbelt Use: always Sunscreen Use: Yes Assistive Devices: None Allergies Allergies Allergy/AdvReac Type Severity Reaction Status Date / Time No Known Allergies Allergy Verified 08/30/22 19:24 Home Meds Home Medications Medication Instructions Recorded Confirmed aspirin 81 mg chewable tablet 1 tab PO QAM 12/02/18 08/30/22 blood sugar diagnostic (Contour #10 ea 07/21/19 08/22/22 Test Strips) lisinopril 40 mg tablet 40 mg PO QAM 12/19/21 08/30/22 Previous Rx's Medication Instructions Recorded lancets (Microlet Lancet) #100 ea 01/13/20 chlorthalidone 25 mg tablet 12.5 mg PO BID #90 tabs 10/24/21 metformin 500 mg tablet,extended 500 mg PO BID #180 tabs 03/19/22 release 24 hr amlodipine 10 mg tablet 10 mg PO DAILY #90 tabs 06/12/22 metoprolol succinate 200 mg 200 mg PO BID #180 tabs 06/13/22 tablet,extended release 24 hr clopidogrel 75 mg tablet 75 mg PO QAM #90 tabs 06/21/22 atorvastatin 80 mg tablet 80 mg PO QAM #90 tabs 07/09/22 Results & Data (ED) Vital Signs Vital Signs - 24 hr 08/30/22 17:14 08/30/22 19:35 08/30/22 19:35 Temperature 36.5 C Temperature Source Temporal Artery Scan Pulse Rate 77 63 61 Respiratory Rate 18 15 Blood Pressure 140/79 Blood Pressure Mean 99 Pulse Oximetry 96 96 Oxygen Delivery Method Room Air Room Air Sepsis Recent Fever Within 48 Hours No Sepsis New/Unexplained Change in Mental Status N/A Sepsis Action Taken by Nursing No Action Required 08/30/22 20:00 08/30/22 20:30 08/30/22 20:31 Temperature Temperature Source Pulse Rate 75 79 74 Respiratory Rate 15 19 16 Blood Pressure 204/104 H 193/135 H Blood Pressure Mean 137 154 Pulse Oximetry Oxygen Delivery Method Sepsis Recent Fever Within 48 Hours Sepsis New/Unexplained Change in Mental Status Sepsis Action Taken by Nursing 08/30/22 21:00 08/30/22 21:30 08/30/22 22:00 Temperature Temperature Source Pulse Rate 70 71 64 Respiratory Rate 15 16 15 Blood Pressure 147/82 H 149/83 H 176/77 H Blood Pressure Mean 103 105 110 Pulse Oximetry 97 98 98 Oxygen Delivery Method Room Air Room Air Room Air Sepsis Recent Fever Within 48 Hours Sepsis New/Unexplained Change in Mental Status Sepsis Action Taken by Nursing 08/30/22 22:30 08/30/22 23:00 Temperature Temperature Source Pulse Rate 63 64 Respiratory Rate 16 18 Blood Pressure 155/72 H 154/74 H Blood Pressure Mean 99 100 Pulse Oximetry 99 100 Oxygen Delivery Method Room Air Room Air Sepsis Recent Fever Within 48 Hours Sepsis New/Unexplained Change in Mental Status Sepsis Action Taken by Nursing Laboratory Data 08/30/22 17:28 08/30/22 17:28 Lab Results 08/30/22 08/30/22 08/30/22 Range/Units 17:28 17:28 19:14 WBC 12.13 H (4.8-10.8) K/ul RBC 4.21 L (4.70-6.10) M/uL Hgb 12.0 L (14.0-18.0) g/dl Hct 36.6 L (42.0-52.0) % MCV 86.9 (80.0-100.0) fL MCH 28.5 (25.0-34.0) pg MCHC 32.8 (32.0-36.0) g/dL RDW Std Deviation 41.3 (36.4-46.3) fL RDW Coeff of Elsi 13.2 (11.5-14.5) % Plt Count 437 H (130-400) K/uL MPV 10.3 (9.4-12.4) fL Immature Gran % (Auto) 0.2 % Neut % (Auto) 83.4 % Lymph % (Auto) 12.8 % Brantley % (Auto) 3.4 % Eos % (Auto) 0.0 % Baso % (Auto) 0.2 % Neut # (Auto) 10.11 H (1.40-6.50) K/uL Lymph # (Auto) 1.55 (1.2-3.4) K/uL Brantley # (Auto) 0.41 (0.11-0.59) K/uL Eos # (Auto) 0.00 (0-0.50) K/uL Baso # (Auto) 0.03 (0-0.2) K/uL Immature Gran # (Auto) 0.03 (0.01-0.20) K/uL Sodium 136 (136-145) mmol/L Potassium 4.3 (3.5-5.1) mmol/L Chloride 103 (98-107) mmol/L Carbon Dioxide 23 (21-32) mmol/L Anion Gap 10 (3-11) BUN 41 H (6-23) mg/dl Creatinine 1.79 H (0.6-1.4) mg/dl Est Cr Clr Drug Dosing 32.2 ml/min Est GFR ( Amer) 42.0 ml/min Est GFR (Non-Af Amer) 36.3 ml/min BUN/Creatinine Ratio 22.9 H (10-20) Glucose 159 H (70-99(Fasting)) mg/dl Calcium 9.5 (8.6-10.3) mg/dl Total Bilirubin 0.4 (0.2-1.0) mg/dl AST 15 (13-39) U/L ALT 14 (7-52) U/L Alkaline Phosphatase 101 (34-104) U/L Total Protein 7.7 (6.0-8.3) gm/dl Albumin 4.0 (3.4-5.0) gm/dl Globulin 3.7 (2.5-4.0) gm/dl Albumin/Globulin Ratio 1.1 (0.9-2) Lipase 88 H (11-82) U/L Urine Color Brown Urine Appearance Cloudy A (Clear) Urine pH 5.5 (4.5-7.5) Ur Specific [place] 1.014 (1.000-1.030) Urine Protein 3+ H (Negative) Urine Glucose (UA) Negative (Negative) Urine Ketones Negative (Negative) Urine Blood 3+ H (Negative) Urine Nitrite Negative (Negative) Urine Bilirubin Negative (Negative) Urine Urobilinogen Negative (Negative) Ur Leukocyte Esterase 2+ H (Negative) Urine RBC >30 H (0-4) /hpf Urine WBC >30 H (0-5) /hpf Ur Epithelial Cells 0-5 (0-5) /lpf Urine Bacteria 1+ H (Negative) SARS-CoV-2, RNA, NAAT (NEGATIVE) 08/30/22 Range/Units 21:31 WBC (4.8-10.8) K/ul RBC (4.70-6.10) M/uL Hgb (14.0-18.0) g/dl Hct (42.0-52.0) % MCV (80.0-100.0) fL MCH (25.0-34.0) pg MCHC (32.0-36.0) g/dL RDW Std Deviation (36.4-46.3) fL RDW Coeff of Elsi (11.5-14.5) % Plt Count (130-400) K/uL MPV (9.4-12.4) fL Immature Gran % (Auto) % Neut % (Auto) % Lymph % (Auto) % Brantley % (Auto) % Eos % (Auto) % Baso % (Auto) % Neut # (Auto) (1.40-6.50) K/uL Lymph # (Auto) (1.2-3.4) K/uL Brantley # (Auto) (0.11-0.59) K/uL Eos # (Auto) (0-0.50) K/uL Baso # (Auto) (0-0.2) K/uL Immature Gran # (Auto) (0.01-0.20) K/uL Sodium (136-145) mmol/L Potassium (3.5-5.1) mmol/L Chloride (98-107) mmol/L Carbon Dioxide (21-32) mmol/L Anion Gap (3-11) BUN (6-23) mg/dl Creatinine (0.6-1.4) mg/dl Est Cr Clr Drug Dosing ml/min Est GFR ( Amer) ml/min Est GFR (Non-Af Amer) ml/min BUN/Creatinine Ratio (10-20) Glucose (70-99(Fasting)) mg/dl Calcium (8.6-10.3) mg/dl Total Bilirubin (0.2-1.0) mg/dl AST (13-39) U/L ALT (7-52) U/L Alkaline Phosphatase (34-104) U/L Total Protein (6.0-8.3) gm/dl Albumin (3.4-5.0) gm/dl Globulin (2.5-4.0) gm/dl Albumin/Globulin Ratio (0.9-2) Lipase (11-82) U/L Urine Color Urine Appearance (Clear) Urine pH (4.5-7.5) Ur Specific [place] (1.000-1.030) Urine Protein (Negative) Urine Glucose (UA) (Negative) Urine Ketones (Negative) Urine Blood (Negative) Urine Nitrite (Negative) Urine Bilirubin (Negative) Urine Urobilinogen (Negative) Ur Leukocyte Esterase (Negative) Urine RBC (0-4) /hpf Urine WBC (0-5) /hpf Ur Epithelial Cells (0-5) /lpf Urine Bacteria (Negative) SARS-CoV-2, RNA, NAAT NEGATIVE (NEGATIVE) Administered Medications Discontinued Medications Sodium Chloride (Nss 1000ml) 1,000 mls @ 999 mls/hr IV .Q1H1M ONE Stop: 08/30/22 19:35 Last Infusion: 08/30/22 21:40 Dose: 0 mls/hr Documented By: Infusion: 08/30/22 19:40 Dose: 0 mls/hr Documented By: Admin: 08/30/22 19:22 Dose: 999 mls/hr Documented By: ISREAL Ciprofloxacin (Cipro / D5w) 400 mg in 200 mls @ 100 mls/hr IV NOW STA; Protocol Stop: 08/30/22 23:03 Last Admin: 08/30/22 21:34 Dose: 100 mls/hr Documented By: ISREAL Ioversol (Optiray 350 100ml) 87 ml IV ONCE ONE Stop: 08/30/22 19:01 Last Admin: 08/30/22 19:00 Dose: 87 ml Documented By: AKUA Imaging Data Radiologist's Impression: KUB X-Ray 08/30/22 17:20 KUB HISTORY: Acute generalized abdominal pain with reported constipation constipation COMPARISON: CT 08/28/2022 FINDINGS: Nonobstructive bowel gas pattern. Mild colonic fecal retention. There are a few nondilated contrast filled loops of bowel within the right abdomen. Bilateral ureteral stents appear to be in satisfactory positioning. Renal shadows are partially obscured by bowel gas. 3 mm calcification of the abdominal right upper quadrant again noted. No renal or ureteral calculi identified. No pn eumoperitoneum or pneumatosis. No fracture. IMPRESSION: 1. Nonobstructive bowel gas pattern without radiographic evidence of constipation. 2. Bilateral ureteral stents in place. No ureteral calculi identified. ACT 112: Negative or not required by law. The above report was generated using voice recognition software. It may contain grammatical, syntax or spelling errors. Electronically signed by: Koko Magaña M.D. 08/30/2022 6:32 PM Abdomen/Pelvis CT 08/30/22 18:35 Exam(s): CT ABDOMEN + PELVIS With Contrast EXAM: CT Abdomen and Pelvis With Intravenous Contrast CLINICAL HISTORY: Reason for exam: lower abd pain recent surg for bladder ca. TECHNIQUE: Axial computed tomography images of the abdomen and pelvis with intravenous contrast. CTDI is 7.57 mGy and DLP is 322.38 mGy-cm. Automated exposure control was utilized for the study. A dose lowering technique was utilized adhering to the principles of ALARA. CONTRAST: Contrast must be dictated COMPARISON: No relevant prior studies available. FINDINGS: Lung bases: Unremarkable. No mass. No consolidation. ABDOMEN: Liver: Unremarkable. No mass. Gallbladder and bile ducts: Unremarkable. No calcified stones. No ductal dilation. Pancreas: Unremarkable. No mass. No ductal dilation. Spleen: Unremarkable. No splenomegaly. Adrenals: Unremarkable. No mass. Kidneys and ureters: Bilateral nephroureteral stents which terminate in the urinary bladder. Mild bilateral hydronephrosis. Note, there is a history of bladder carcinoma in the provided clinical history. Mild wall thickening of the urinary bladder with mild pericystic induration. Correlate for UTI. Urinalysis recommended. Stomach and bowel: Diverticulosis, without acute diverticulitis. No small bowel obstruction. No free intraperitoneal air. Mild wall thickening of the rectum, correlate with proctitis. PELVIS: Appendix: Normal appendix. Bladder: Unremarkable. No mass. Reproductive: Unremarkable as visualized. ABDOMEN and PELVIS: Intraperitoneal space: Unremarkable. No free air. No significant fluid collection. Bones/joints: Degenerative changes of the spine. No acute fracture. No dislocation. Soft tissues: Unremarkable. Vasculature: Atherosclerotic changes of the aorta. No abdominal aortic aneurysm. Lymph nodes: Unremarkable. No enlarged lymph nodes. IMPRESSION: 1. Bilateral nephroureteral stents which terminate in the urinary bladder. Mild bilateral hydronephrosis. Mild wall thickening of the urinary bladder with mild pericystic induration. Correlate for UTI. Urinalysis recommended. Note, there is a history of bladder carcinoma in the provided clinical history. 2. Mild wall thickening of the rectum, correlate with proctitis. Electronically signed by: Omar Naidu MD 08/30/22 19:57 PM Discharge Plan Visit Data Chief Complaint: Constipation Stated Complaint: BOWEL BLOCKAGE,NO BOWEL MOVEMENT 3 DAYS ED Provider: Jarrod Whalen Discharge Problem: Abdominal pain, Complicated urinary tract infection, Leukocytosis, Acute urinary retention Discharge Instructions Interventions: ED Discharge Assessment Last Done: 08/30/22 23:13 Prescriptions Prescriptions: No Action chlorthalidone 25 mg tablet 12.5 mg PO BID Qty: 90 3RF metformin 500 mg tablet extended release 24 hr 500 mg PO BID Qty: 180 3RF Rx Instructions: PER PT "SINCE DIET IS MUCH BETTER, DO NOT ALWAYS TAKE SECOND DOSE OF METFORMIN". amlodipine 10 mg tablet 10 mg PO DAILY Qty: 90 3RF metoprolol succinate 200 mg tablet extended release 24 hr 200 mg PO BID Qty: 180 3RF clopidogrel 75 mg tablet 75 mg PO QAM Qty: 90 3RF atorvastatin 80 mg tablet 80 mg PO QAM Qty: 90 3RF (DME) lancets [Microlet Lancet] Misc See Dose Instructions .ROUTE .MEDSUPPLY Qty: 100 3RF Dose Instruction: As directed Rx Instructions: TEST ONCE DAILY. aspirin 81 mg tablet,chewable 1 tab PO QAM (DME) Contour Test Strips Strip See Dose Instructions .ROUTE .MEDSUPPLY Qty: 10 Rx Instructions: TEST ONCE DAILY lisinopril 40 mg tablet 40 mg PO QAM
[2022-08-30] MEDS ORDERED: OPTIRAY 350 100ml IV ONE (19:00)
[2022-08-30 19:31] LABS: Appearance Urine Cloudy (Clear); Color Urine Brown
[2022-08-30 19:35] LABS: Bilirubin Urine Negative (Negative); Blood Urine 3+ (Negative); Glucose Urine UA Negative (Negative); Ketones Urine Negative (Negative); Leukocyte Esterase Urine 2+ (Negative); Nitrite Urine Negative (Negative); Protein Urine 3+ (Negative); Specific Gravity Urine 1.014 (1.000-1.030); Urobilinogen Urine Negative (Negative); pH Urine 5.5 (4.5-7.5)
[2022-08-30 19:42] LABS: Bacteria Urine 1+ (Negative); Epithelial Cell Urine 0-5 /lpf (0-5); RBC Urine >30 /hpf (0-4); WBC Urine >30 /hpf (0-5)
--- NOTE | 2022-08-30 19:58 | CT Scan Report ---
Exam(s): CT ABDOMEN + PELVIS With Contrast EXAM: CT Abdomen and Pelvis With Intravenous Contrast CLINICAL HISTORY: Reason for exam: lower abd pain recent surg for bladder ca. TECHNIQUE: Axial computed tomography images of the abdomen and pelvis with intravenous contrast. CTDI is 7.57 mGy and DLP is 322.38 mGy-cm. Automated exposure control was utilized for the study. A dose lowering technique was utilized adhering to the principles of ALARA. CONTRAST: Contrast must be dictated COMPARISON: No relevant prior studies available. FINDINGS: Lung bases: Unremarkable. No mass. No consolidation. ABDOMEN: Liver: Unremarkable. No mass. Gallbladder and bile ducts: Unremarkable. No calcified stones. No ductal dilation. Pancreas: Unremarkable. No mass. No ductal dilation. Spleen: Unremarkable. No splenomegaly. Adrenals: Unremarkable. No mass. Kidneys and ureters: Bilateral nephroureteral stents which terminate in the urinary bladder. Mild bilateral hydronephrosis. Note, there is a history of bladder carcinoma in the provided clinical history. Mild wall thickening of the urinary bladder with mild pericystic induration. Correlate for UTI. Urinalysis recommended. Stomach and bowel: Diverticulosis, without acute diverticulitis. No small bowel obstruction. No free intraperitoneal air. Mild wall thickening of the rectum, correlate with proctitis. PELVIS: Appendix: Normal appendix. Bladder: Unremarkable. No mass. Reproductive: Unremarkable as visualized. ABDOMEN and PELVIS: Intraperitoneal space: Unremarkable. No free air. No significant fluid collection. Bones/joints: Degenerative changes of the spine. No acute fracture. No dislocation. Soft tissues: Unremarkable. Vasculature: Atherosclerotic changes of the aorta. No abdominal aortic aneurysm. Lymph nodes: Unremarkable. No enlarged lymph nodes. IMPRESSION: 1. Bilateral nephroureteral stents which terminate in the urinary bladder. Mild bilateral hydronephrosis. Mild wall thickening of the urinary bladder with mild pericystic induration. Correlate for UTI. Urinalysis recommended. Note, there is a history of bladder carcinoma in the provided clinical history. 2. Mild wall thickening of the rectum, correlate with proctitis. Electronically signed by: Omar Naidu MD 08/30/22 19:57 PM
--- NOTE | 2022-08-30 21:01 | Urology Consultation ---
Date of Consultation August 30, 2022 Assessment & Plan (1) Urinary tract infection: (2) Urinary retention: I had a lengthy discussion with the patient at the bedside. It appears that he is suffering from urinary tract infection. Also in light of the patient's bladder scan I feel he would benefit from having a Kennedy catheter placed and he was agreeable to this. The nursing staff placed a Kennedy catheter and the patient had an immediate return of approximately 750 cc of dark/bloody urine. Following this the patient had almost immediate symptomatic relief and noted that he felt much better. He does report still feeling somewhat weak and tired and feels he will not do well at home and therefore the treating emergency room physician is going to have the hospitalist admit him. We recommend proceeding in the following manner Maintain Kennedy catheter for maximal drainage in the setting of this urinary tract infection Initiate antibiotics. The treating emergency room physician notes that he is going to start Cipro. An appropriate urine culture has been sent and this will be followed and antibiotics to be tailored based on these results. Avoid nephrotoxins due to patient's elevated creatinine Provide hydration with IV fluids in the setting of acute kidney injury If patient develops any discomfort from Kennedy catheter consideration be given to using oxybutynin Serial labs should be followed Patient reports that he was to follow-up with Dr. Krishnamurthy in the office in the morning. I have messaged the office to inform them of the patient's admission. Additional recommendations were forthcoming based on his response to the above plan and his clinical course as it unfolds Supervising Physician Co-Signing Physician Notes I have discussed Mr. Benavidez's case with Ranjith Fan PA-C and agree with anita quinteros above documentation. Continue antibiotics and tailor as culture data becomes available. Maintain Kennedy catheter for approximately 1 week for bladder rest. Suspect renal function will improve with catheter in place. -Chad Ryan MD. History of Present Illness Reason for Consultation: Urinary tract infection status post recent urologic procedure History of Present Illness This is a 77-year-old male who underwent a recent urologic procedure by Dr. Krishnamurthy. On 08/13/2022 the patient underwent a cystoscopy with transurethral resection of a bladder tumor and bilateral ureteral stents placed. The patient notes that he was discharged home with a Kennedy catheter and the patient reports this was removed approximately 2 days ago. Since his Kennedy catheter was removed the patient says that he has been having hematuria and difficulty voiding. He notes that he is only able to dribble small amount of urine out and has difficulty initiating stream. He also describes what sounds like urge incontinence as he has the urge to urinate and cannot control the urge to void. He said that this will temporary alleviate his symptoms and then he will have the urge to void again. He does report some flank pain bilaterally. He denies any fevers but has felt cold at times. He also reports some dysuria. Since arrival to the hospital this patient has had a CT scan of the abdomen pelvis. This showed the patient had bilateral nephroureteral stents and mild bilateral hydronephrosis. There is some bladder wall thickening with mild pericystic induration. KUB showed a nonobstructive gas pattern. Labs include a CBC her white blood cell count was 12.1. Hemoglobin and hematocrit were 12.0 and 36.6. Platelet count was 4 and 37,000. Chemistry profile showed sodium and potassium are 136 and 4.3. His BUN and creatinine were 41 and 1.7. Review of records does show that the patient's creatinine ranges anywhere from 1.0 to levels as high as 4.6 over the past month. A urinalysis today showed cloudy urine with negative nitrites. There is 3+ blood on the specimen and 2+ leukocyte Estrace. There greater than 30 white blood cells per high-power field and 1+ bacteria. The patient was bladder scanned by the nursing staff after he had an episode of urinary incontinence and he was retaining approximately 650 cc of urine. At the time of my interview the patient was in no distress but he did complain of some suprapubic discomfort Allergies Allergy/AdvReac Type Severity Reaction Status Date / Time No Known Allergies Allergy Verified 08/30/22 19:24 Home Medications Medication Instructions Recorded Confirmed Type aspirin 81 mg chewable tablet 1 tab PO QAM 12/02/18 08/30/22 History blood sugar diagnostic (Contour #10 ea 07/21/19 08/22/22 History Test Strips) lancets (Microlet Lancet) #100 ea 01/13/20 08/22/22 Rx chlorthalidone 25 mg tablet 12.5 mg PO BID #90 tabs 10/24/21 08/30/22 Rx lisinopril 40 mg tablet 40 mg PO QAM 12/19/21 08/30/22 History metformin 500 mg tablet,extended 500 mg PO BID #180 tabs 03/19/22 08/30/22 Rx release 24 hr amlodipine 10 mg tablet 10 mg PO DAILY #90 tabs 06/12/22 08/30/22 Rx metoprolol succinate 200 mg 200 mg PO BID #180 tabs 06/13/22 08/30/22 Rx tablet,extended release 24 hr clopidogrel 75 mg tablet 75 mg PO QAM #90 tabs 06/21/22 08/30/22 Rx atorvastatin 80 mg tablet 80 mg PO QAM #90 tabs 07/09/22 08/30/22 Rx Patient History Medical History CAD (coronary artery disease) Dyslipidemia Hypertension Low back pain Multi-vessel coronary artery stenosis Tubular adenoma of colon Type 2 diabetes mellitus in remission Surgical History H/O colonoscopy 08/2016, repeat 5 yrs History of cardiac cath ~3 years ago, "failed stress test, needed cath", [place] History of open reduction and internal fixation (ORIF) procedure Lt. Femur Stented coronary artery ~3 years ago, [facility], following cath at [facility], x1 stent (resolut summer) placed; now f/u Luis Manuel Beltran PA-C, [facility] Cardio. Family History Father Non-Hodgkin's lymphoma Mother Multiple myeloma Sister Heart disease Hypertension Dyslipidemia Uncle Myocardial infarction Denies family history of Ovarian cancer Prostate cancer Breast cancer Colorectal cancer Social History Smoking Status: Former smoker Second Hand Exposure: No; Do You Dip or Chew Tobacco: No; Hx Alcohol Use: No Hx Substance Use: No Preferred Language: Icelandic Communication Ability: Effective Visual Impairment: Limited Hearing Ability: Normal Technology Applications Consultant Required: No Beliefs That Will Affect Care: None marital status: Single Current Living Situation: Alone current occupational status: retired How many Children do You have: 0 Feels Safe at Home: Yes Safety Concerns: Feels Safe At This Time Childhood Exposure to Second-Hand Smoke: Yes caffeine: Yes Dental Care, Regularly: Yes Physical Activity Frequency: Daily Seatbelt Use: always Sunscreen Use: Yes Assistive Devices: Glasses Review of Systems Constitutional: + chills; no fever Ear, Nose, Mouth, Throat: no hearing loss Respiratory: no cough and no dyspnea Cardiovascular: no chest pain Gastrointestinal: + abdominal pain (Suprapubic discomfort); no nausea and no vomiting Genitourinary: + as per Subjective / HPI Musculoskeletal: no back pain Integumentary: no rash Neurologic: no localized weakness Physical Exam Constitutional: WD/WN, vitals as above Eyes: Wears glasses ENMT: Ears: no hearing impairment and no external ear abnormality Mouth: no oropharynx abnormality Neck: trachea midline Respiratory: normal respiratory effort, lungs clear to auscultation Cardiovascular: Rate/Rhythm: regular rate and regular rhythm Gastrointestinal (Abdomen): Abdomen has minimal distention and is soft. It is nonrigid. Bowel sounds are present. There is no rebound tenderness or guarding. The patient did have discomfort in the suprapubic area with palpation. Musculoskeletal: No calf tenderness Skin: no rashes Neurologic: moves all extremities Genitourinary: + CVA tenderness (Mild bilateral CVA tenderness noted with percussion) Results & Data Vital Signs (Past 12 Hours) Vital Signs Temp Pulse Resp BP Pulse Ox O2 Del Method 08/30/22 19:35 63 08/30/22 17:14 36.5 C 77 18 140/79 96 Room Air PG Care Time/CCT Total # of Minutes Spent Total Time Spent with Patient: Total time spent is greater than 50% in coordination of care (as documented) at patient's floor/unit and/or counseling patient: Coding Level of Care Code INT OBSERVATION CARE 70M LVL 3 Diagnoses Urinary tract infection N39.0 Urinary retention R33.9
[2022-08-30] MEDS ORDERED: CIPROFLOXACIN / D5W 400 MG/200 ML BAG IV STA (21:04)
--- NOTE | 2022-08-30 22:06 | History & Physical Report ---
Date of Service August 30, 2022 Assessment & Plan (1) Acute urinary retention: Plan: 77-year-old male with recent transurethral resection of bladder tumor and bilateral stent placement, recent Kennedy catheter removal presenting with acute urinary retention. Kennedy catheter placed with 750 mL of urine returned. Patient presently feels improved. Mild elevation in creatinine from prior. Last creatinine on 08/22/2022 = 1.03. Creatinine from today 08/30/2022 = 1.79 Observation to medical floor Maintain Kennedy catheter Monitor strict output. Watch for postobstructive diuresis or worsening hematuria with clots Continue IV fluidsLR at 100 mL/h x 2 L Continue ciprofloxacin 400 mg IV twice daily for treatment of UTI Tylenol as needed for pain or fever Appreciate urology assistance in management Repeat CBC and chemistry in the morning to assess H/H and renal function/electrolyte (2) Type 2 diabetes mellitus in remission: Plan: Diet controlled. Insulin sliding scale as needed for blood sugar over 180 Consistent carb diet as tolerated (3) Hypertension: Plan: Blood pressure overall well controlled Continue amlodipine 10 mg p.o. daily Continue metoprolol 200 mg p.o. twice daily Continue to monitor (4) CAD (coronary artery disease): Plan: Patient with multivessel CAD status post ostial and proximal LAD drug-eluting stent x2 and OM1 NEVA on 07/01/2018. He remains on dual antiplatelet therapy with aspirin and Plavix. Follows routinely with cardiology. Patient denies chest pain. Continue aspirin Continue Plavix Continue lisinopril Continue metoprolol Continue atorvastatin (5) Dyslipidemia: Plan: Chronic. Stable. Continue atorvastatin FENLR at 100 mL/h x 2 L, electrolytes within normal limits, consistent carb/heart healthy diet as tolerated Prophylaxisheparin 5000 units twice daily (patient with active malignancyincreased risk for VTE. Balance risks for ongoing hematuria in setting of dual antiplatelet therapy as well) Codefull Dispositionobservation to medical History of Present Illness Chief Complaint: Decreaesed UOP Primary Care Provider: Delmi Umanzor MD Neo Benavidez is a pleasant 77-year-old male with history of diabetes, coronary artery disease, hypertension, hyperlipidemia presenting with constipation and urinary retention. Patient was recently admitted to [facility] 08/13 through 08/15/2022 when he presented with hematuria and back pain. CT of the abdomen at that time revealed a large clot within the bladder and bilateral hydroureteronephrosis and a moderately enlarged prostate. He also had elevated creatinine to 4.69 from a baseline of approximately 1.2. Patient had a cystoscopy with transurethral resection of bladder tumor and bilateral ureteral stent placement on 08/13/[address] Krishnamurthy. He was found to have a bladder tumor. 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 He was seen in follow-up in urology clinic on 08/28/2022. Kennedy catheter was removed approximately 2 days ago. Patient presents to the ER this evening with complaints of decreased urine output, abdominal pain and distention and constipation progressive since removal of his Kennedy. He has passed small amounts of hematuria. Bladder scan performed in the ER revealed approximate 650 mL of urine. Kennedy catheter was placed with prompt return of 750 cc of dark/bloody urine. Patient's symptoms markedly improved. Presently he has no complaints. ER course: Cipro Normal saline x1 L Allergies Allergy/AdvReac Type Severity Reaction Status Date / Time No Known Allergies Allergy Verified 08/30/22 19:24 Home Medications Medication Instructions Recorded Confirmed Type aspirin 81 mg chewable tablet 1 tab PO QAM 12/02/18 08/30/22 History blood sugar diagnostic (Contour #10 ea 07/21/19 08/22/22 History Test Strips) lancets (Microlet Lancet) #100 ea 01/13/20 08/22/22 Rx chlorthalidone 25 mg tablet 12.5 mg PO BID #90 tabs 10/24/21 08/30/22 Rx lisinopril 40 mg tablet 40 mg PO QAM 12/19/21 08/30/22 History metformin 500 mg tablet,extended 500 mg PO BID #180 tabs 03/19/22 08/30/22 Rx release 24 hr amlodipine 10 mg tablet 10 mg PO DAILY #90 tabs 06/12/22 08/30/22 Rx metoprolol succinate 200 mg 200 mg PO BID #180 tabs 06/13/22 08/30/22 Rx tablet,extended release 24 hr clopidogrel 75 mg tablet 75 mg PO QAM #90 tabs 06/21/22 08/30/22 Rx atorvastatin 80 mg tablet 80 mg PO QAM #90 tabs 07/09/22 08/30/22 Rx Past Med/Surg History Medical History CAD (coronary artery disease) Dyslipidemia Hypertension Low back pain Multi-vessel coronary artery stenosis Tubular adenoma of colon Type 2 diabetes mellitus in remission Surgical History H/O colonoscopy 08/2016, repeat 5 yrs History of cardiac cath ~3 years ago, "failed stress test, needed cath", [place] History of open reduction and internal fixation (ORIF) procedure Lt. Femur Stented coronary artery ~3 years ago, [facility], following cath at [facility], x1 stent (resolut summer) placed; now f/u Luis Manuel Beltran PA-C, [facility] Cardio. Family History Father Non-Hodgkin's lymphoma Mother Multiple myeloma Sister Heart disease Hypertension Dyslipidemia Uncle Myocardial infarction Denies family history of Ovarian cancer Prostate cancer Breast cancer Colorectal cancer Social History Smoking Status: Former smoker Second Hand Exposure: No; Do You Dip or Chew Tobacco: No; Hx Alcohol Use: No Hx Substance Use: No Preferred Language: Nigerien Communication Ability: Effective Visual Impairment: Limited Hearing Ability: Normal Highway Inspector Required: No Beliefs That Will Affect Care: None marital status: Single Current Living Situation: Alone current occupational status: retired How many Children do You have: 0 Feels Safe at Home: Yes Safety Concerns: Feels Safe At This Time Childhood Exposure to Second-Hand Smoke: Yes caffeine: Yes Dental Care, Regularly: Yes Physical Activity Frequency: Daily Seatbelt Use: always Sunscreen Use: Yes Assistive Devices: Glasses Review of Systems Review of Systems: All systems reviewed & are unremarkable except as noted in HPI & below Physical Exam Physical Exam: General: patient resting comfortably, NAD, non-toxic in appearance, AA&O x 4 Skin: warm, dry, intact, no rashes or lesions HEENT: NC/AT, PERRL, EOMI, anicteric sclera, conjunctiva without injection, external ear normal to inspection and nontender, nares patent, moist mucus membranes, dentition intact, no oropharyngeal lesions, neck supple, trachea midline, no LAD, no thyromegaly, no JVD Heart: +S1/S2, regular, no m/r/g Lungs: equal air entry bilaterally, no rales/rhonchi/wheezes Abd: +BS, soft, NT/ND, no masses/organomegaly/ascites Ext: warm, 2+ pulses in UE/LE bilaterally, no clubbing/cyanosis or edema Neuro: nonfocal, patient AA&O x 4, speech intact, no facial droop, moving all extremities on command with equal strength 5/[address] with approximately 50 cc of dark, bloody urine. No clots visible in the bag. Mild suprapubic tenderness markedly improved per patient. Results & Data Results & Data Vital Signs (Past 12 Hours) Vital Signs Temp Pulse Resp BP Pulse Ox O2 Del Method 08/30/22 21:30 71 16 149/83 H 98 Room Air 08/30/22 21:00 70 15 147/82 H 97 Room Air 08/30/22 20:31 74 16 193/135 H 08/30/22 20:30 79 19 08/30/22 20:00 75 15 204/104 H 08/30/22 19:35 61 15 96 Room Air 08/30/22 19:35 63 08/30/22 17:14 36.5 C 77 18 140/79 96 Room Air Laboratory Results Laboratory Results WBC 12.13 K/ul (4.8-10.8) H 08/30/22 17: RBC 4.21 M/uL (4.70-6.10) L 08/30/22 17: Hgb 12.0 g/dl (14.0-18.0) L 08/30/22: Hct 36.6 % (42.0-52.0) L 08/30/22 17: MCV 86.9 fL (80.0-100.0) 08/30/22: MCH 28.5 pg (25.0-34.0) 08/30/22: MCHC 32.8 g/dL (32.0-36.0) 08/30/22 17: RDW Std Deviation 41.3 fL (36.4-46.3) 08/30/22: RDW Coeff of Elsi 13.2 % (11.5-14.5) 08/30/22: Plt Count 437 K/uL (130-400) H 08/30/22: MPV 10.3 fL (9.4-12.4) 08/30/22: Immature Gran % (Auto) 0.2 % 08/30/22: Neut % (Auto) 83.4 % 08/30/22: Lymph % (Auto) 12.8 % 08/30/22: [place] % (Auto) 3.4 % 08/30/22: Eos % (Auto) 0.0 % 08/30/22: Baso % (Auto) 0.2 % 08/30/22: Neut # (Auto) 10.11 K/uL (1.40-6.50) H 08/30/22: Lymph # (Auto) 1.55 K/uL (1.2-3.4) 08/30/22: [place] # (Auto) 0.41 K/uL (0.11-0.59) 08/30/22: Eos # (Auto) 0.00 K/uL (0-0.50) 08/30/22: Baso # (Auto) 0.03 K/uL (0-0.2) 08/30/22: Immature Gran # (Auto) 0.03 K/uL (0.01-0.20) 08/30/22: Sodium 136 mmol/L (136-145) 08/30/22: Potassium 4.3 mmol/L (3.5-5.1) 08/30/22: Chloride 103 mmol/L (98-107) 08/30/22: Carbon Dioxide 23 mmol/L (21-32) 08/30/22: Anion Gap 10 (3-11) 08/30/22: BUN 41 mg/dl (6-23) H 08/30/22: Creatinine 1.79 mg/dl (0.6-1.4) H 08/30/22: Est Cr Clr Drug Dosing 32.2 ml/min 08/30/22 17: Est GFR ( Amer) 42.0 ml/min 04/20/23 17:28 Est GFR (Non-Af Amer) 36.3 ml/min 08/30/22 17:28 BUN/Creatinine Ratio 22.9 (10-20) H 08/30/22 17:28 Glucose 159 mg/dl (70-99(Fasting)) H 08/30/22 17:28 POC Glucose 146 mg/dl (70-99) H 08/30/22 23:35 Calcium 9.5 mg/dl (8.6-10.3) 08/30/22 17:28 Total Bilirubin 0.4 mg/dl (0.2-1.0) 08/30/22 17:28 AST 15 U/L (13-39) 08/30/22 17: ALT 14 U/L (7-52) 08/30/22 17:28 Alkaline Phosphatase 101 U/L (34-104) 08/30/22 17:28 Total Protein 7.7 gm/dl (6.0-8.3) 08/30/22 17:28 Albumin 4.0 gm/dl (3.4-5.0) 08/30/22 17:28 Globulin 3.7 gm/dl (2.5-4.0) 08/30/22 17:28 Albumin/Globulin Ratio 1.1 (0.9-2) 08/30/22 17:28 Lipase 88 U/L (11-82) H 08/30/22 17:28 Urine Color Brown 08/30/22 19:14 Urine Appearance Cloudy (Clear) A 08/30/22 19:14 Urine pH 5.5 (4.5-7.5) 08/30/22 19:14 Ur Specific [place] 1.014 (1.000-1.030) 08/30/22 19:14 Urine Protein 3+ (Negative) H 08/30/22 19:14 Urine Glucose (UA) Negative (Negative) 08/30/22 19:14 Urine Ketones Negative (Negative) 08/30/22 19:14 Urine Blood 3+ (Negative) H 08/30/22 19:14 Urine Nitrite Negative (Negative) 08/30/22 19:14 Urine Bilirubin Negative (Negative) 08/30/22 19:14 Urine Urobilinogen Negative (Negative) 08/30/22 19:14 Ur Leukocyte Esterase 2+ (Negative) H 08/30/22 19:14 Urine RBC >30 /hpf (0-4) H 08/30/22 19:14 Urine WBC >30 /hpf (0-5) H 08/30/22 19:14 Ur Epithelial Cells 0-5 /lpf (0-5) 08/30/22 19:14 Urine Bacteria 1+ (Negative) H 08/30/22 19:14 SARS-CoV-2, RNA, NAAT NEGATIVE (NEGATIVE) 08/30/22 21:31 Impressions KUB X-Ray 08/30/22 17:20 KUB HISTORY: Acute generalized abdominal pain with reported constipation constipation COMPARISON: CT 08/28/2022 FINDINGS: Nonobstructive bowel gas pattern. Mild colonic fecal retention. There are a few nondilated contrast filled loops of bowel within the right abdomen. Bilateral ureteral stents appear to be in satisfactory positioning. Renal shadows are partially obscured by bowel gas. 3 mm calcification of the abdominal right upper quadrant again noted. No renal or ureteral calculi identified. No pneumoperitoneum or pneumatosis. No fracture. IMPRESSION: 1. Nonobstructive bowel gas pattern without radiographic evidence of constipation. 2. Bilateral ureteral stents in place. No ureteral calculi identified. ACT 112: Negative or not required by law. The above report was generated using voice recognition software. It may contain grammatical, syntax or spelling errors. Electronically signed by: Koko Magaña M.D. 08/30/2022 6:32 PM Abdomen/Pelvis CT 08/30/22 18:35 Exam(s): CT ABDOMEN + PELVIS With Contrast EXAM: CT Abdomen and Pelvis With Intravenous Contrast CLINICAL HISTORY: Reason for exam: lower abd pain recent surg for bladder ca. TECHNIQUE: Axial computed tomography images of the abdomen and pelvis with intravenous contrast. CTDI is 7.57 mGy and DLP is 322.38 mGy-cm. Automated exposure control was utilized for the study. A dose lowering technique was utilized adhering to the principles of ALARA. CONTRAST: Contrast must be dictated COMPARISON: No relevant prior studies available. FINDINGS: Lung bases: Unremarkable. No mass. No consolidation. ABDOMEN: Liver: Unremarkable. No mass. Gallbladder and bile ducts: Unremarkable. No calcified stones. No ductal dilation. Pancreas: Unremarkable. No mass. No ductal dilation. Spleen: Unremarkable. No splenomegaly. Adrenals: Unremarkable. No mass. Kidneys and ureters: Bilateral nephroureteral stents which terminate in the urinary bladder. Mild bilateral hydronephrosis. Note, there is a history of bladder carcinoma in the provided clinical history. Mild wall thickening of the urinary bladder with mild pericystic induration. Correlate for UTI. Urinalysis recommended. Stomach and bowel: Diverticulosis, without acute diverticulitis. No small bowel obstruction. No free intraperitoneal air. Mild wall thickening of the rectum, correlate with proctitis. PELVIS: Appendix: Normal appendix. Bladder: Unremarkable. No mass. Reproductive: Unremarkable as visualized. ABDOMEN and PELVIS: Intraperitoneal space: Unremarkable. No free air. No significant fluid collection. Bones/joints: Degenerative changes of the spine. No acute fracture. No dislocation. Soft tissues: Unremarkable. Vasculature: Atherosclerotic changes of the aorta. No abdominal aortic aneurysm. Lymph nodes: Unremarkable. No enlarged lymph nodes. IMPRESSION: 1. Bilateral nephroureteral stents which terminate in the urinary bladder. Mild bilateral hydronephrosis. Mild wall thickening of the urinary bladder with mild pericystic induration. Correlate for UTI. Urinalysis recommended. Note, there is a history of bladder carcinoma in the provided clinical history. 2. Mild wall thickening of the rectum, correlate with proctitis. Electronically signed by: Omar Naidu MD 08/30/22 19:57 PM Code Status & VTE Plan VTE Prophylaxis Plan VTE Prophylaxis will be ordered: Yes PG Care Time/CCT Total # of Minutes Spent Total Time Spent with Patient: Total time spent is greater than 50% in coordination of care (as documented) at patient's floor/unit and/or counseling patient: Coding Level of Care Code 17430 INT INP/OBS CARE 3/75MIN Diagnoses Acute urinary retention R33.8 Type 2 diabetes mellitus in remission E11.9 Hypertension I10 CAD (coronary artery disease) I25.10 Dyslipidemia E78.5
[2022-08-30] MEDS ORDERED: GLUCOSE 40% GEL 15 GM TUBE PO PRN (23:35)
[2022-08-30] MEDS ORDERED: CARBOHYDRATES FOR HYPOGLYCEMIA PO PRN (23:35)
[2022-08-30] MEDS ORDERED: GLUCOSE 10 TAB/TUBE PO PRN (23:35)
[2022-08-30] MEDS ORDERED: ACETAMINOPHEN 325 MG TAB PO PRN (23:35)
[2022-08-30] MEDS ORDERED: GLUCAGON FOR INJ 1 MG VIAL SQ PRN (23:35)
[2022-08-30] MEDS ORDERED: DEXTROSE 50% 50 ML SYRINGE IV PRN (23:35)
[2022-08-30] MEDS ORDERED: DOCUSATE SODIUM 100 MG CAP PO PRN (23:35)
[2022-08-30] MEDS ORDERED: POLYETHYLENE (MIRALAX) 17 GM PACK PO PRN (23:35)
[2022-08-31] MEDS: LACTATED RINGER'S 1,000 ML IV SCH ×2 (00:34→12:57)
[2022-08-31] MEDS: amLODIPine BESYLATE 5 MG TAB PO SCH (08:02)
[2022-08-31] MEDS: ASPIRIN 81 MG CHEW PO SCH (08:03)
[2022-08-31] MEDS: CLOPIDOGREL BISULFATE 75 MG TAB PO SCH (08:03)
[2022-08-31] MEDS: METOPROLOL SUCC 50MG EXT REL TAB PO SCH ×2 (08:04→21:51)
[2022-08-31] MEDS: HEPARIN SOD 5,000 UNIT/0.5 ML VIAL SQ SCH ×2 (08:05→21:51)
[2022-08-31] MEDS: CIPROFLOXACIN / D5W 400 MG/200 ML BAG IV SCH ×2 (08:07→23:32)
[2022-08-31 08:30] LABS: Hematocrit (blood only) 28.8 % (42.0-52.0); Hemoglobin 9.4 g/dl (14.0-18.0); Mean Corpuscular Hemoglobin 28.6 pg (25.0-34.0); Mean Corpuscular Hgb Conc 32.6 g/dL (32.0-36.0); Mean Corpuscular Volume 87.5 fL (80.0-100.0); Mean Platelet Volume 10.7 fL (9.4-12.4); Platelet Count 297 K/uL (130-400); RDW Coefficient of Variation 13.5 % (11.5-14.5); RDW Standard Deviation 42.9 fL (36.4-46.3); Red Blood Count 3.29 M/uL (4.70-6.10); White Blood Count 6.83 K/ul (4.8-10.8)
[2022-08-31 08:49] LABS: BUN Creatinine Ratio 23.9 (10-20); Calcium 8.4 mg/dl (8.6-10.3); Creatinine Clr Calc Pharmacy 40.6 ml/min; Est GFR (African American) 55.6 ml/min; Potassium 3.9 mmol/L (3.5-5.1)
[2022-08-31] MEDS: INSULIN ASPART PER UNIT CHARGE SC SCH ×4 (08:52→20:31)
[2022-08-31] MEDS ORDERED: ATORVASTATIN 40 MG TAB PO SCH (09:00)
--- NOTE | 2022-08-31 11:43 | Urology Progress Note ---
Date of Service August 31, 2022 Assessment & Plan (1) Complicated urinary tract infection: (2) Acute urinary retention: Plan 77yo/M who is s/p TURBT and bilateral stent placement on 08/13 admitted with acute urinary retention, UTI, KENDRICK. CT abd pelvis shows bilateral ureteral stents in place, mild bilateral hydro, bladder wall thickening. Afebrile and hemodynamically stable. Labs show leukocytosis improved from 12-6 today, hemoglobin 9.4, creatinine downtrending 1.791.42 today. Continue to monitor. Urine culture pending. On IV Cipro. Follow culture and tailor as culture data becomes available. Kennedy catheter intact, draining clear yellow urine. Continue to monitor. Continue supportive care and antibiotic therapy. Maintain Kennedy catheter. Will arrange outpatient voiding trial in our office in 1 week. Plan to follow-up with urology as scheduled. Urology will follow peripherally. Please contact us any further questions, concerns, or changes in patient status. Admission and Anticipated Discharge Date Admission Date: August 30, 2022 Supervising Physician Co-Signing Physician Notes Discussed patient with JORGE L. Agree with plan. Subjective Patient examined at bedside this AM. Awake, resting in bed on arrival. No acute distress. Reports feeling significantly better today. Kennedy catheter intact, draining clear yellow urine. Denies any pain or discomfort at present. Denies fevers or chills. Denies nausea or vomiting. Review of Systems Constitutional: as per Subjective / HPI Gastrointestinal: as per Subjective / HPI Genitourinary: + as per Subjective / HPI Physical Exam Constitutional: no acute distress Respiratory: no respiratory distress and no labored breathing Musculoskeletal: Head/Neck/Chest: normocephalic Skin: No visible rashes or lesions to exposed skin areas Neurologic: moves all extremities and awake Psychiatric: A+Ox3, euthymic affect Genitourinary: Kennedy catheter intact Results & Data Vital Signs (Past 12 Hours) Vital Signs Temp Pulse Resp BP Pulse Ox O2 Del Method 08/31/22 07:17 36.7 C 57 L 18 130/62 98 Room Air 08/30/22 23:59 Room Air 08/30/22 23:59 Room Air 08/30/22 23:51 36.7 C 65 22 137/73 98 Room Air PG Care Time/CCT Total # of Minutes Spent Total Time Spent with Patient: Total time spent is greater than 50% in coordination of care (as documented) at patient's floor/unit and/or counseling patient: Coding Level of Care Code 64145 SUB INP/OBS CARE MIN Diagnoses Complicated urinary tract infection N39.0 Acute urinary retention R33.8
--- NOTE | 2022-08-31 14:58 | Hospitalist Progress Note ---
Date of Service August 31, 2022 Assessment & Plan (1) Acute urinary retention: Plan: 77-year-old male with recent transurethral resection of bladder tumor and bilateral stent placement, recent Kennedy catheter removal presenting with acute urinary retention. Kennedy catheter placed with 750 mL of urine returned. Patient presently feels improved. Acute urinary retention leading to acute kidney injury Maintain Kennedy catheter Urology on board Monitor strict output. Watch for postobstructive diuresis or worsening hematuria with clots Continue IV fluidsLR at 100 mL/h x 2 L Continue ciprofloxacin 400 mg IV twice daily for treatment of UTI Tylenol as needed for pain or fever Appreciate urology assistance in management Repeat CBC and chemistry in the morning to assess H/H and renal function/electrolyte (2) Acute kidney injury: Plan: Improving from 1.7-1.4 today Continue IV fluids This is due to obstructive uropathy Watch out for postobstructive diuresis (3) Type 2 diabetes mellitus in remission: Plan: Diet controlled. Insulin sliding scale as needed for blood sugar over 180 Consistent carb diet as tolerated (4) Hypertension: Plan: Blood pressure overall well controlled Continue amlodipine 10 mg p.o. daily Continue metoprolol 200 mg p.o. twice daily Continue to monitor (5) CAD (coronary artery disease): Plan: Patient with multivessel CAD status post ostial and proximal LAD drug-eluting stent x2 and OM1 NEVA on 07/01/2018. He remains on dual antiplatelet therapy with aspirin and Plavix. Follows routinely with cardiology. Patient denies chest pain. Continue aspirin Continue Plavix Continue lisinopril Continue metoprolol Continue atorvastatin (6) Dyslipidemia: Plan: Chronic. Stable. Continue atorvastatin FENLR at 100 mL/h x 2 L, electrolytes within normal limits, consistent carb/heart healthy diet as tolerated Prophylaxisheparin 5000 units twice daily (patient with active malignancyincreased risk for VTE. Balance risks for ongoing hematuria in setting of dual antiplatelet therapy as well) Codefull Dispositionobservation to medical Admission and Anticipated Discharge Date Admission Date: August 30, 2022 Subjective Patient feels much better compared to when he came to the hospital. No abdominal pain or distention. Physical Exam Physical Exam: General: Awake, conversant. Kennedy draining dark-colored urine Heart: S1, S2/regular rate and rhythm, no murmur rubs or gallops Lungs: Clear to auscultation bilaterally. Normal effort Abdomen: Soft/nontender/nondistended. No hepatosplenomegaly Extremities: No clubbing/cyanosis. No edema Behavior: Appropriate, cooperative Results & Data Results & Data Vital Signs (Past 12 Hours) Vital Signs Temp Pulse Resp BP Pulse Ox O2 Del Method 08/31/22 14:53 36.8 C 65 16 157/64 H 98 Room Air 08/31/22 07:17 36.7 C 57 L 18 130/62 98 Room Air Laboratory Results Abnormal lab results 08/30/22 08/30/22 08/30/22 Range/Units 17:28 17:28 19:14 WBC 12.13 H (4.8-10.8) K/ul RBC 4.21 L (4.70-6.10) M/uL Hgb 12.0 L (14.0-18.0) g/dl Hct 36.6 L (42.0-52.0) % Plt Count 437 H (130-400) K/uL Neut # (Auto) 10.11 H (1.40-6.50) K/uL Chloride (98-107) mmol/L BUN 41 H (6-23) mg/dl Creatinine 1.79 H (0.6-1.4) mg/dl BUN/Creatinine Ratio 22.9 H (10-20) Glucose 159 H (70-99(Fasting)) mg/dl POC Glucose (70-99) mg/dl Calcium (8.6-10.3) mg/dl Lipase 88 H (11-82) U/L Urine Appearance Cloudy A (Clear) Urine Protein 3+ H (Negative) Urine Blood 3+ H (Negative) Ur Leukocyte Esterase 2+ H (Negative) Urine RBC >30 H (0-4) /hpf Urine WBC >30 H (0-5) /hpf Urine Bacteria 1+ H (Negative) 08/30/22 08/31/22 08/31/22 Range/Units 23:35 07:28 07:28 WBC (4.8-10.8) K/ul RBC 3.29 L (4.70-6.10) M/uL Hgb 9.4 L (14.0-18.0) g/dl Hct 28.8 L (42.0-52.0) % Plt Count (130-400) K/uL Neut # (Auto) (1.40-6.50) K/uL Chloride 108 H (98-107) mmol/L BUN 34 H (6-23) mg/dl Creatinine 1.42 H D (0.6-1.4) mg/dl BUN/Creatinine Ratio 23.9 H (10-20) Glucose (70-99(Fasting)) mg/dl POC Glucose 146 H (70-99) mg/dl Calcium 8.4 L (8.6-10.3) mg/dl Lipase (11-82) U/L Urine Appearance (Clear) Urine Protein (Negative) Urine Blood (Negative) Ur Leukocyte Esterase (Negative) Urine RBC (0-4) /hpf Urine WBC (0-5) /hpf Urine Bacteria (Negative) 08/31/22 Range/Units 08:15 WBC (4.8-10.8) K/ul RBC (4.70-6.10) M/uL Hgb (14.0-18.0) g/dl Hct (42.0-52.0) % Plt Count (130-400) K/uL Neut # (Auto) (1.40-6.50) K/uL Chloride (98-107) mmol/L BUN (6-23) mg/dl Creatinine (0.6-1.4) mg/dl BUN/Creatinine Ratio (10-20) Glucose (70-99(Fasting)) mg/dl POC Glucose 121 H (70-99) mg/dl Calcium (8.6-10.3) mg/dl Lipase (11-82) U/L Urine Appearance (Clear) Urine Protein (Negative) Urine Blood (Negative) Ur Leukocyte Esterase (Negative) Urine RBC (0-4) /hpf Urine WBC (0-5) /hpf Urine Bacteria (Negative) Diagnostic Findings KUB X-Ray 08/30/22 17:20 KUB HISTORY: Acute generalized abdominal pain with reported constipation constipation COMPARISON: CT 08/28/2022 FINDINGS: Nonobstructive bowel gas pattern. Mild colonic fecal retention. There are a few nondilated contrast filled loops of bowel within the right abdomen. Bilateral ureteral stents appear to be in satisfactory positioning. Renal shadows are partially obscured by bowel gas. 3 mm calcification of the abdominal right upper quadrant again noted. No renal or ureteral calculi identified. No pneumoperitoneum or pneumatosis. No fracture. IMPRESSION: 1. Nonobstructive bowel gas pattern without radiographic evidence of constipation. 2. Bilateral ureteral stents in place. No ureteral calculi identified. ACT 112: Negative or not required by law. The above report was generated using voice recognition software. It may contain grammatical, syntax or spelling errors. Electronically signed by: Koko Magaña M.D. 08/30/2022 6:32 PM Abdomen/Pelvis CT 08/30/22 18:35 Exam(s): CT ABDOMEN + PELVIS With Contrast EXAM: CT Abdomen and Pelvis With Intravenous Contrast CLINICAL HISTORY: Reason for exam: lower abd pain recent surg for bladder ca. TECHNIQUE: Axial computed tomography images of the abdomen and pelvis with intravenous contrast. CTDI is 7.57 mGy and DLP is 322.38 mGy-cm. Automated exposure control was utilized for the study. A dose lowering technique was utilized adhering to the principles of ALARA. CONTRAST: Contrast must be dictated COMPARISON: No relevant prior studies available. FINDINGS: Lung bases: Unremarkable. No mass. No consolidation. ABDOMEN: Liver: Unremarkable. No mass. Gallbladder and bile ducts: Unremarkable. No calcified stones. No ductal dilation. Pancreas: Unremarkable. No mass. No ductal dilation. Spleen: Unremarkable. No splenomegaly. Adrenals: Unremarkable. No mass. Kidneys and ureters: Bilateral nephroureteral stents which terminate in the urinary bladder. Mild bilateral hydronephrosis. Note, there is a history of bladder carcinoma in the provided clinical history. Mild wall thickening of the urinary bladder with mild pericystic induration. Correlate for UTI. Urinalysis recommended. Stomach and bowel: Diverticulosis, without acute diverticulitis. No small bowel obstruction. No free intraperitoneal air. Mild wall thickening of the rectum, correlate with proctitis. PELVIS: Appendix: Normal appendix. Bladder: Unremarkable. No mass. Reproductive: Unremarkable as visualized. ABDOMEN and PELVIS: Intraperitoneal space: Unremarkable. No free air. No significant fluid collection. Bones/joints: Degenerative changes of the spine. No acute fracture. No dislocation. Soft tissues: Unremarkable. Vasculature: Atherosclerotic changes of the aorta. No abdominal aortic aneurysm. Lymph nodes: Unremarkable. No enlarged lymph nodes. IMPRESSION: 1. Bilateral nephroureteral stents which terminate in the urinary bladder. Mild bilateral hydronephrosis. Mild wall thickening of the urinary bladder with mild pericystic induration. Correlate for UTI. Urinalysis recommended. Note, there is a history of bladder carcinoma in the provided clinical history. 2. Mild wall thickening of the rectum, correlate with proctitis. Electronically signed by: Omar Naidu MD 08/30/22 19:57 PM PG Care Time/CCT Total # of Minutes Spent Total Time Spent with Patient: Total time spent is greater than 50% in coordination of care (as documented) at patient's floor/unit and/or counseling patient: Coding Level of Care Code 05002 SUB INP/OBS CARE 2/35MIN Diagnoses Acute urinary retention R33.8 Acute kidney injury N17.9 Type 2 diabetes mellitus in remission E11.9 Hypertension I10 CAD (coronary artery disease) I25.10 Dyslipidemia E78.5
[2022-09-01] MEDS: CIPROFLOXACIN / D5W 400 MG/200 ML BAG IV SCH ×2 (09:02→20:56)
[2022-09-01] MEDS: amLODIPine BESYLATE 5 MG TAB PO SCH (09:02)
[2022-09-01] MEDS: ASPIRIN 81 MG CHEW PO SCH (09:03)
[2022-09-01] MEDS: HEPARIN SOD 5,000 UNIT/0.5 ML VIAL SQ SCH ×2 (09:04→20:56)
[2022-09-01] MEDS: METOPROLOL SUCC 50MG EXT REL TAB PO SCH ×2 (09:04→20:54)
[2022-09-01] MEDS: CLOPIDOGREL BISULFATE 75 MG TAB PO SCH (09:05)
[2022-09-01] MEDS: INSULIN ASPART PER UNIT CHARGE SC SCH ×4 (09:05→22:25)
[2022-09-01 10:35] LABS: BUN Creatinine Ratio 23.9 (10-20); Calcium 8.1 mg/dl (8.6-10.3); Creatinine Clr Calc Pharmacy 52.8 ml/min; Est GFR (African American) 76.5 ml/min; Potassium 3.7 mmol/L (3.5-5.1)
--- NOTE | 2022-09-01 15:44 | Hospitalist Progress Note ---
Date of Service September 01, 2022 Assessment & Plan (1) Acute urinary retention: Plan: 77-year-old male with recent transurethral resection of bladder tumor and bilateral stent placement, recent Kennedy catheter removal presenting with acute urinary retention. Kennedy catheter placed with 750 mL of urine returned. Patient presently feels improved. Acute urinary retention leading to acute kidney injury Maintain Kennedy catheter Urology on board Monitor strict output. Watch for postobstructive diuresis or worsening hematuria with clots Continue IV fluidsLR at 100 mL/h x 2 L Continue ciprofloxacin 400 mg IV twice daily for treatment of UTI Urine culture unimpressive. Plan to still continue ciprofloxacin to complete a course Appreciate urology assistance in management. Recommended discharge with catheter in place. Follow-up with urology as scheduled. White count normalized (2) Acute kidney injury: Plan: Resolved Discontinue IV fluids Encourage p.o. fluid intake Watch out for postobstructive diuresis (3) Type 2 diabetes mellitus in remission: Plan: Diet controlled. Insulin sliding scale as needed for blood sugar over 180 Consistent carb diet as tolerated (4) Hypertension: Plan: Blood pressure overall well controlled Continue amlodipine 10 mg p.o. daily Continue metoprolol 200 mg p.o. twice daily Continue to monitor (5) CAD (coronary artery disease): Plan: Patient with multivessel CAD status post ostial and proximal LAD drug-eluting stent x2 and OM1 NEVA on 07/01/2018. He remains on dual antiplatelet therapy with aspirin and Plavix. Follows routinely with cardiology. Patient denies chest pain. Continue aspirin Continue Plavix Continue lisinopril Continue metoprolol Continue atorvastatin (6) Dyslipidemia: Plan: Chronic. Stable. Continue atorvastatin Prophylaxisheparin 5000 units twice daily (patient with active malignancyincreased risk for VTE. Balance risks for ongoing hematuria in setting of dual antiplatelet therapy as well) Codefull Admission and Anticipated Discharge Date Admission Date: August 31, 2022 Subjective Patient feels well overall. Denies chest pain or shortness of breath. No abdominal pain. Catheter draining well. Review of Systems Review of Systems: All systems reviewed & are unremarkable except as noted in Subjective Physical Exam Physical Exam: General: Awake, conversant. 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 Normal effort Abdomen: Soft/nontender/nondistended. No hepatosplenomegaly Extremities: No clubbing/cyanosis. No edema Behavior: Appropriate, cooperative Results & Data Results & Data Vital Signs (Past 12 Hours) Vital Signs Temp Pulse Resp BP Pulse Ox O2 Del Method 09/01/22 08:25 Room Air 09/01/22 07:20 36.3 C L 54 L 18 162/73 H 100 Room Air PG Care Time/CCT Total # of Minutes Spent Total Time Spent with Patient: Total time spent is greater than 50% in coordination of care (as documented) at patient's floor/unit and/or counseling patient: Coding Level of Care Code 61649 SUB INP/OBS CARE 2/35MIN Diagnoses Acute urinary retention R33.8 Acute kidney injury N17.9 Type 2 diabetes mellitus in remission E11.9 Hypertension I10 CAD (coronary artery disease) I25.10 Dyslipidemia E78.5
[2022-09-02 07:20] LABS: Hemoglobin 9.4 g/dl (14.0-18.0); Mean Corpuscular Hemoglobin 28.6 pg (25.0-34.0); Mean Corpuscular Hgb Conc 33.6 g/dL (32.0-36.0); Mean Corpuscular Volume 85.1 fL (80.0-100.0); Mean Platelet Volume 10.6 fL (9.4-12.4); Platelet Count 242 K/uL (130-400); Red Blood Count 3.29 M/uL (4.70-6.10); White Blood Count 5.15 K/ul (4.8-10.8)
[2022-09-02 07:46] LABS: BUN Creatinine Ratio 21.2 (10-20); Calcium 8.5 mg/dl (8.6-10.3); Creatinine Clr Calc Pharmacy 55.4 ml/min; Est GFR (Non-African American) 69.9 ml/min; Potassium 4.2 mmol/L (3.5-5.1)
[2022-09-02] MEDS: ASPIRIN 81 MG CHEW PO SCH (08:57)
[2022-09-02] MEDS: CLOPIDOGREL BISULFATE 75 MG TAB PO SCH (08:57)
[2022-09-02] MEDS: METOPROLOL SUCC 50MG EXT REL TAB PO SCH (08:57)
[2022-09-02] MEDS: amLODIPine BESYLATE 5 MG TAB PO SCH (08:57)
[2022-09-02] MEDS: CIPROFLOXACIN / D5W 400 MG/200 ML BAG IV SCH (08:58)
[2022-09-02] MEDS: INSULIN ASPART PER UNIT CHARGE SC SCH ×2 (08:58→12:55)
[2022-09-02] MEDS: HEPARIN SOD 5,000 UNIT/0.5 ML VIAL SQ SCH (08:58)
--- NOTE | 2022-09-02 10:27 | Discharge Summary ---
Date of Service September 02, 2022 Admission HPI Per Admitting Provider Neo Benavidez is a pleasant 77-year-old male with history of diabetes, coronary artery disease, hypertension, hyperlipidemia presenting with constipation and urinary retention. Patient was recently admitted to [facility] 08/13 through 08/15/2022 when he presented with hematuria and back pain. CT of the abdomen at that time revealed a large clot within the bladder and bilateral hydroureteronephrosis and a moderately enlarged prostate. He also had elevated creatinine to 4.69 from a baseline of approximately 1.2. Patient had a cystoscopy with transurethral resection of bladder tumor and bilateral ureteral stent placement on 08/13/[address] Krishnamurthy. He was found to have a bladder tumor. 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 He was seen in follow-up in urology clinic on 08/28/2022. Kennedy catheter was removed approximately 2 days ago. Patient presents to the ER this evening with complaints of decreased urine output, abdominal pain and distention and constipation progressive since removal of his Kennedy. He has passed small amounts of hematuria. Bladder scan performed in the ER revealed approximate 650 mL of urine. Kennedy catheter was placed with prompt return of 750 cc of dark/bloody urine. Patient's symptoms markedly improved. Presently he has no complaints. ER course: Cipro Normal saline x1 L Admission Exam Per Admitting Provider General: patient resting comfortably, NAD, non-toxic in appearance, AA&O x 4 Skin: warm, dry, intact, no rashes or lesions HEENT: NC/AT, PERRL, EOMI, anicteric sclera, conjunctiva without injection, external ear normal to inspection and nontender, nares patent, moist mucus membranes, dentition intact, no oropharyngeal lesions, neck supple, trachea midline, no LAD, no thyromegaly, no JVD Heart: +S1/S2, regular, no m/r/g Lungs: equal air entry bilaterally, no rales/rhonchi/wheezes Abd: +BS, soft, NT/ND, no masses/organomegaly/ascites Ext: warm, 2+ pulses in UE/LE bilaterally, no clubbing/cyanosis or edema Neuro: nonfocal, patient AA&O x 4, speech intact, no facial droop, moving all extremities on command with equal strength 5/[address] with approximately 50 cc of dark, bloody urine. No clots visible in the bag. Mild suprapubic tenderness markedly improved per patient. Principal Diagnosis Acute urinary retention, acute pyelonephritis, acute kidney injury due to obstructive uropathy Discharge Exam General: Awake, conversant. 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 Normal effort Abdomen: Soft/nontender/nondistended. No hepatosplenomegaly Extremities: No clubbing/cyanosis. No edema Behavior: Appropriate, cooperative Discharge Data Allergies Allergy/AdvReac Type Severity Reaction Status Date / Time No Known Allergies Allergy Verified 08/30/22 19:24 Consultations 08/30/22 21:04 ED Decision to Admit Stat 08/30/22 21:05 Consult Urology Stat Ordered Studies 08/30/22 18:35 CT abd pelvis IV con only Stat Hospital Course (1) Acute urinary retention: 77-year-old male with recent transurethral resection of bladder tumor and bilateral stent placement, recent Kennedy catheter removal presenting with acute urinary retention. Kennedy catheter placed with 750 mL of urine returned. Patient presently feels improved. Acute urinary retention leading to acute kidney injury Maintain Kennedy catheter Urology recommended outpatient follow-up with Kennedy catheter in place Patient is ready for discharge Continue antibiotics to complete course for treatment of UTI with Levaquin - Follow-up with urology as scheduled. White count normalized (2) Acute kidney injury: Resolved Discontinued IV fluids Encourage p.o. fluid intake (3) Type 2 diabetes mellitus in remission: Diet controlled. Insulin sliding scale as needed for blood sugar over 180 Consistent carb diet as tolerated (4) Hypertension: Blood pressure overall well controlled Continue amlodipine 10 mg p.o. daily Continue metoprolol 200 mg p.o. twice daily Continue to monitor (5) CAD (coronary artery disease): Patient with multivessel CAD status post ostial and proximal LAD drug-eluting stent x2 and OM1 NEVA on 07/01/2018. He remains on dual antiplatelet therapy with aspirin and Plavix. Follows routinely with cardiology. Patient denies chest pain. Continue aspirin Continue Plavix Continue lisinopril Continue metoprolol Continue atorvastatin (6) Dyslipidemia: Chronic. Stable. Continue atorvastatin Total Time Total Time Spent Total Time Spent (In Minutes): 35 Discharge Plan Discharge Items Patient Disposition: Home - Self-Care Reason For Visit: UTI, URINARY RETENTION Discharge Diagnosis: Urinary retention, UTI Activity: Resume your previous activity Non-emergency contact: Primary Care Provider Call non-emergency contact if: you have any medication questions and your symptoms worsen Follow-up/Referrals: Delmi Umanzor MD [Primary Care Provider] - Diet: Carb Consistent or DM2 and Heart Healthy Addtl Attending Provider Instructions: Advised to follow-up with PCP in 1 week Advised to follow-up with urologist in 1 week. Pending Studies at Discharge: No Stand-Alone Forms: [facility] Medications and DC Order Prescriptions: New levofloxacin 500 mg tablet 500 mg PO DAILY 3 Days Qty: 3 0RF Continued chlorthalidone 25 mg tablet 12.5 mg PO BID Qty: 90 3RF metformin 500 mg tablet extended release 24 hr 500 mg PO BID Qty: 180 3RF Rx Instructions: PER PT "SINCE DIET IS MUCH BETTER, DO NOT ALWAYS TAKE SECOND DOSE OF METFORMIN". amlodipine 10 mg tablet 10 mg PO DAILY Qty: 90 3RF metoprolol succinate 200 mg tablet extended release 24 hr 200 mg PO BID Qty: 180 3RF clopidogrel 75 mg tablet 75 mg PO QAM Qty: 90 3RF atorvastatin 80 mg tablet 80 mg PO QAM Qty: 90 3RF aspirin 81 mg tablet,chewable 1 tab PO QAM lisinopril 40 mg tablet 40 mg PO QAM Discontinued (DME) lancets [Microlet Lancet] Misc See Dose Instructions .ROUTE .MEDSUPPLY Qty: 100 3RF Dose Instruction: As directed Rx Instructions: TEST ONCE DAILY. (DME) Contour Test Strips Strip See Dose Instructions .ROUTE .MEDSUPPLY Qty: 10 Rx Instructions: TEST ONCE DAILY Discharge Orders: Discharge Order (Routine); Ordered 09/02/22 Ordered By: Jeannie Hernandez/Other Patient Handouts: Indwelling Urinary Catheter Dc Admission Data Admit Date/Time: 08/31/22 15:33 Attending Provider: Jeannie Dupree Admit Provider: Jeannie Dupree Primary Care Provider: Delmi Umanzor Other Providers: Agus,Marija M ; Krishnamurthy,Faheem H. Other Interventions: Discharge Summary Assessment (RN) Last Done: 09/02/22 13:14 Coding Level of Care Code 14046 INP/OBS DISCH >30 MIN Diagnoses Acute urinary retention R33.8 Acute kidney injury N17.9 Type 2 diabetes mellitus in remission E11.9 Hypertension I10 CAD (coronary artery disease) I25.10 Dyslipidemia E78.5
== END 2022-09-02 14:45 | disposition home or self-care (01) | DRG 690 ==
LOC: 3N 17:08 → ED 17:08 → SUATTDRO 22:05 → 3N 23:13 → SUATTDRO 08-31 15:33

== ENCOUNTER 2022-10-30 03:45 | Inpatient (IN) ==
[2022-10-30 04:21] LABS: Basophils # (auto) 0.06 K/uL (0-0.2); Basophils % (auto) 0.5 %; Eosinophils # (auto) 0.04 K/uL (0-0.50); Eosinophils % (auto) 0.3 %; Hematocrit (blood only) 39.6 % (42.0-52.0); Hemoglobin 13.3 g/dl (14.0-18.0); Immature Granulocytes # (auto) 0.05 K/uL (0.01-0.20); Immature Granulocytes % (auto) 0.4 %; Lymphocytes # (auto) 1.62 K/uL (1.2-3.4); Lymphocytes % (auto) 13.8 %; Mean Corpuscular Hemoglobin 27.8 pg (25.0-34.0); Mean Corpuscular Hgb Conc 33.6 g/dL (32.0-36.0); Mean Corpuscular Volume 82.7 fL (80.0-100.0); Mean Platelet Volume 11.4 fL (9.4-12.4); Monocytes # (auto) 0.72 K/uL (0.11-0.59); Monocytes % (auto) 6.1 %; Neutrophils # (auto) 9.22 K/uL (1.40-6.50); Neutrophils % (auto) 78.9 %; Platelet Count 266 K/uL (130-400); RDW Coefficient of Variation 13.9 % (11.5-14.5); Red Blood Count 4.79 M/uL (4.70-6.10); White Blood Count 11.71 K/ul (4.8-10.8)
--- NOTE | 2022-10-30 04:26 | Emergency Department Note ---
Impression & Plan Generalized weakness, Bladder cancer, Fall, Diarrhea, KENDRICK (acute kidney injury), Dehydration, Hyperkalemia, Hyponatremia, Hematuria, UTI (urinary tract infection) ED Provider Note ED Provider Note NAME: RAKEL DELA CRUZ AGE:77 SEX: Male : 1945 ARRIVES VIA: EMS INFORMANT: Patient ED PROVIDER(s): Heena Miller DO CHIEF COMPLAINT: Fall, weakness HPI: This is a 77-year-old male presents emergency department following a fall at home where he tried to get up from his couch and fell to the floor. Patient states he has been very weak in recent weeks having almost daily diarrhea. Patient did have a procedure performed more than a month ago for known bladder cancer. He states he does urinate frequently and tries to drink water. He states he has not had a very good appetite. Patient does live home alone. He denied striking his head or any loss of consciousness. He states he has had minimal oral intake and has noticed some weight loss. PAST MEDICAL HISTORY:See Below PAST SURGICAL HISTORY:See Below FAMILY HISTORY:See Below SOCIAL HISTORY:See Below HOME MEDICATIONS:See Below ALLERGIES:See Below VITALS:See Below PHYSICAL EXAMINATION: GENERAL: alert, unwell appearing, no distress, non-toxic HEAD: nc, area of contusion noted to the right parietal region, no evidence of facial trauma EYE EXAM: normal conjunctiva, PERRL and EOM's grossly intact OROPHARYNX: no exudate, no erythema, lips, buccal mucosa, and tongue normal and mucous membranes are dry NECK: supple, no nuchal rigidity, no adenopathy, non-tender LUNGS: Clear to auscultation. Normal chest wall mechanics, no w/r/r HEART: no murmurs, S1 normal and S2 normal ABDOMEN: abdomen soft, non-tender, normo-active bowel sounds, no masses, no rebound or guarding. BACK: Back is symmetrical on inspection and there is no deformity, no midline tenderness, no CVA tenderness. SKIN: no rashes, petechiae, orbruising UPPER EXTREMITIES: upper extremities are grossly normal. FROM, nml pulses b/l. LOWER EXTREMITIES: No pitting edema. FROM, nml pulses b/l. Dried stool noted on the patient's legs. NEURO EXAM: Normal sensorium, cranial nerves II-XII grossly intact, normal speech, no facial droop,nogross weakness of arms, no gross weakness of legs. Gross sensation intact. No ataxia. Vital Signs: reviewed and remarkable Differential Diagnosis: KENDRICK, dehydration, electrolyte abnormality, colitis, UTI, ADR of current medications, tumor burden, as well as others were considered MEDICAL DECISION MAKING: This is a 77-year-old male who presents emergency department due to concern for weakness and fall. Patient afebrile and VS stable. Labs drawn and sent, IV established, EKG and chest x-ray performed at bedside interpreted by me and harshil butler monitored on telemetry. He was started on IV fluids as he appeared clinically dehydrated and reported decreased oral intake as well as diarrhea in recent weeks. Patient does have history of several urologic issues and did undergo recent surgery in September. Patient denies noting any change in his urine or any recent fevers. He is uncertain what could have started the diarrhea. Patient's labs revealed significant elevation of his creatinine compared to prior from September as well as accompanying hyperkalemia. No ectopy or dysrhythmia noted on telemetry or on EKG, no appearance of acute peak T waves. Patient was noted to have an anion gap, although I suspect this is more likely related to h is volume depletion overall. No hyperglycemia noted. Case discussed with the not any hospitalist early after initial labs started coming back out of concern for patient's condition and likely need for significant inpatient treatment and specialty consultation. Patient made aware of this. He was additionally sent for CT head and abdomen and pelvis even after I discussed the case with the hospitalist. Bladder scan did not reveal significant urinary retention to suggest a postobstructive cause of his KENDRICK. Straight cath was used to obtain urine which was sent for analysis. Patient does have indwelling ureteral stents given his recent urologic procedures. The hospitalist saw the patient at bedside prior to the resulting of all of his labs and imaging and began the admission process and placed several additional orders for the patient including medications/treatments. I suspect this was likely a slowly evolving process over the course of the last 4 to 6 weeks given his hemodynamic stability. Stool culture and C. difficile pending at the time of this discussion additionally. Consultation(s): 0545: Discussed with Dr. Mathews for inpatient treatment. ER Treatment Provided: See below Diagnostics Interpreted By Me: -ECG: Normal sinus at 99, normal axis, normal intervals, nonspecific ST/T wave changes -Cardiac Monitoring: An order was placed for continuous cardiac monitoring. The monitor shows a rate of 100 with sinus tachycardia rhythm. -Laboratory studies: As stated above and show below. -Imaging studies: X-ray Chest: A single view study of the chest was reviewed and was negative for cardiomegaly, focal infiltrate, effusion, pulmonary edema, or wide mediastinum. Triage Nursing Note Reviewed Prior/Outside Records Reviewed -prior urology note reviewed Past Med/Surg History Medical History ARF (acute renal failure) Benign enlargement of prostate Bladder cancer newly diagnosed 08/2022. CAD (coronary artery disease) "Multi-Vessel CAD s/p Ostial and Proximal LAD NEVA x 2 and OM1 NEVA 07/01/2018 (with residual borderline D2 stenosis, OM2 stenosis, RCA/PDA stenoses which are felt amenable to complex PCI" follows with [place] cardiology Diabetes mellitus, type 2 NIDDM Dyslipidemia History of colon polyps Hypertension Low back pain Multi-vessel coronary artery stenosis Myocardial Infarction ~3 years ago. follows with Erik Beltran. Tubular adenoma of colon Surgical History H/O colonoscopy 08/2016, repeat 5 yrs History of cardiac cath ~3 years ago, "failed stress test, needed cath", [place] History of open reduction and internal fixation (ORIF) procedure Lt. Femur Stented coronary artery ~3 years ago, [facility], following cath at [facility], x1 stent (resolut summer) placed; now f/u Luis Manuel Beltran PA-C, [facility] Cardio. Family History Father Non-Hodgkin's lymphoma Mother Multiple myeloma Sister Dyslipidemia Heart disease Hypertension Uncle Myocardial infarction Other No family history of adverse response to anesthesia Denies family history of Ovarian cancer Prostate cancer Breast cancer Colorectal cancer Social History Smoking Status: Former smoker Second Hand Exposure: No; Do You Dip or Chew Tobacco: No; Hx Alcohol Use: No Hx Substance Use: No Preferred Language: Faroese Communication Ability: Effective Visual Impairment: Limited Hearing Ability: Normal Hr Business Partner Required: No Beliefs That Will Affect Care: None marital status: Single Current Living Situation: Alone current occupational status: retired How many Children do You have: 0 Feels Safe at Home: Yes Childhood Exposure to Second-Hand Smoke: Yes caffeine: Yes Dental Care, Regularly: Yes Physical Activity Frequency: Daily Seatbelt Use: always Sunscreen Use: Yes Assistive Devices: None Allergies Allergies Allergy/AdvReac Type Severity Reaction Status Date / Time No Known Allergies Allergy Verified 10/30/22 08:23 Home Meds Home Medications Medication Instructions Recorded Confirmed aspirin 81 mg chewable tablet 1 tab PO QAM 12/02/18 10/30/22 lisinopril 40 mg tablet 40 mg PO QAM 12/19/21 10/30/22 amlodipine 10 mg tablet 10 mg PO QAM 09/14/22 10/30/22 Previous Rx's Medication Instructions Recorded chlorthalidone 25 mg tablet 12.5 mg PO BID #90 tabs 10/24/21 metformin 500 mg tablet,extended 500 mg PO BID #180 tabs 03/19/22 release 24 hr metoprolol succinate 200 mg 200 mg PO BID #180 tabs 06/13/22 tablet,extended release 24 hr clopidogrel 75 mg tablet 75 mg PO QAM #90 tabs 06/21/22 atorvastatin 80 mg tablet 80 mg PO QAM #90 tabs 07/09/22 fluconazole 100 mg tablet 100 mg PO DAILY #5 tabs 09/16/22 (Diflucan) oxybutynin chloride 5 mg tablet 5 mg PO Q8H PRN bladder spasms #20 09/24/22 tabs oxycodone-acetaminophen 7.5 mg-325 1 tab PO Q8H PRN pain #7 tabs 09/24/22 mg tablet (Percocet) phenazopyridine 200 mg tablet 200 mg PO Q8H PRN pain #10 tabs 09/24/22 (Pyridium) finasteride 5 mg tablet 5 mg PO DAILY #30 tabs 10/02/22 tamsulosin 0.4 mg capsule 0.4 mg PO DAILY #30 caps 10/02/22 Results & Data (ED) Vital Signs Vital Signs - 24 hr 10/30/22 03:58 10/30/22 03:58 10/30/22 03:55 Temperature 36.4 C L 36.4 C L Temperature Source Oral Oral Pulse Rate 93 H 96 H Pulse Rate [Apical] 93 H Pulse Rate from SpO2 Sensor Respiratory Rate 15 18 Respiratory Effort / Characteristics Non-Labored Non-Labored Respiratory Depth Normal Normal Respiratory Pattern Regular Regular Blood Pressure 127/70 Blood Pressure [Right Arm] 127/70 Blood Pressure Mean 89 Blood Pressure Mean [Right Arm] 89 Pulse Oximetry 100 100 Oxygen Delivery Method Room Air Room Air Sepsis Recent Fever Within 48 Hours No Sepsis New/Unexplained Change in Mental Status N/A Sepsis Action Taken by Nursing No Action Required 10/30/22 03:56 10/30/22 04:00 10/30/22 04:30 Temperature Temperature Source Pulse Rate 93 H 96 H 100 H Pulse Rate [Apical] Pulse Rate from SpO2 Sensor Respiratory Rate 18 19 23 Respiratory Effort / Characteristics Respiratory Depth Respiratory Pattern Blood Pressure Blood Pressure [Right Arm] Blood Pressure Mean Blood Pressure Mean [Right Arm] Pulse Oximetry 98 95 98 Oxygen Delivery Method Room Air Room Air Room Air Sepsis Recent Fever Within 48 Hours Sepsis New/Unexplained Change in Mental Status Sepsis Action Taken by Nursing 10/30/22 05:00 10/30/22 06:00 Temperature Temperature Source Pulse Rate 90 91 H Pulse Rate [Apical] Pulse Rate from SpO2 Sensor 90 90 Respiratory Rate 24 13 Respiratory Effort / Characteristics Respiratory Depth Respiratory Pattern Blood Pressure Blood Pressure [Right Arm] Blood Pressure Mean Blood Pressure Mean [Right Arm] Pulse Oximetry 96 99 Oxygen Delivery Method Sepsis Recent Fever Within 48 Hours Sepsis New/Unexplained Change in Mental Status Sepsis Action Taken by Nursing Laboratory Data 10/30/22 04:09 10/30/22 04:09 Lab Results 10/30/22 10/30/22 10/30/22 Range/Units 04:09 04:09 04:09 WBC 11.71 H (4.8-10.8) K/ul RBC 4.79 (4.70-6.10) M/uL Hgb 13.3 L (14.0-18.0) g/dl POC Hgb (14.0-18.0) g/dl Hct 39.6 L (42.0-52.0) % POC Hct (42-52) % MCV 82.7 (80.0-100.0) fL MCH 27.8 (25.0-34.0) pg MCHC 33.6 (32.0-36.0) g/dL RDW Std Deviation 42.0 (36.4-46.3) fL RDW Coeff of Elsi 13.9 (11.5-14.5) % Plt Count 266 (130-400) K/uL MPV 11.4 (9.4-12.4) fL Immature Gran % (Auto) 0.4 % Neut % (Auto) 78.9 % Lymph % (Auto) 13.8 % Stanley % (Auto) 6.1 % Eos % (Auto) 0.3 % Baso % (Auto) 0.5 % Neut # (Auto) 9.22 H (1.40-6.50) K/uL Lymph # (Auto) 1.62 (1.2-3.4) K/uL Stanley # (Auto) 0.72 H (0.11-0.59) K/uL Eos # (Auto) 0.04 (0-0.50) K/uL Baso # (Auto) 0.06 (0-0.2) K/uL Immature Gran # (Auto) 0.05 (0.01-0.20) K/uL POC pH (7.35-7.45) POC pCO2 (35-46) mmHg POC pO2 (80-95) mmHg POC HCO3 (19-24) chika/L POC Total CO2 (24-31) mmol/L POC Base Excess (-9-1.8) chika/L POC ABG O2 Sat (90-95) % POC Sodium (135-144) mmol/L Sodium 127 L (136-145) mmol/L POC Potassium (3.3-5.0) mmol/L Potassium 6.1 H* (3.5-5.1) mmol/L Chloride 93 L (98-107) mmol/L Carbon Dioxide 13 L (21-32) mmol/L Anion Gap 21 H (3-11) BUN 199 H (6-23) mg/dl Creatinine 10.44 H* (0.6-1.4) mg/dl Est Cr Clr Drug Dosing 5.3 ml/min Est GFR ( Amer) 5.0 ml/min Est GFR (Non-Af Amer) 4.3 ml/min BUN/Creatinine Ratio 19.1 (10-20) Glucose 91 (70-99(Fasting)) mg/dl Calcium 9.6 (8.6-10.3) mg/dl Phosphorus 11.5 H (2.5-4.9) mg/dl Magnesium 3.2 H (1.7-2.4) mg/dl Total Bilirubin 0.4 (0.2-1.0) mg/dl AST 14 (13-39) U/L ALT 11 (7-52) U/L Alkaline Phosphatase 89 (34-104) U/L Total Protein 8.1 (6.0-8.3) gm/dl Albumin 3.7 (3.4-5.0) gm/dl Globulin 4.4 H (2.5-4.0) gm/dl Albumin/Globulin Ratio 0.8 L (0.9-2) Lipase 204 H (11-82) U/L TSH 0.936 (0.300-4.500) uIu/ml SARS-CoV-2, RNA, NAAT (NEGATIVE) 10/30/22 10/30/22 Range/Units 05:53 06:07 WBC (4.8-10.8) K/ul RBC (4.70-6.10) M/uL Hgb (14.0-18.0) g/dl POC Hgb 12.2 L (14.0-18.0) g/dl Hct (42.0-52.0) % POC Hct 36 L (42-52) % MCV (80.0-100.0) fL MCH (25.0-34.0) pg MCHC (32.0-36.0) g/dL RDW Std Deviation (36.4-46.3) fL RDW Coeff of Elsi (11.5-14.5) % Plt Count (130-400) K/uL MPV (9.4-12.4) fL Immature Gran % (Auto) % Neut % (Auto) % Lymph % (Auto) % Stanley % (Auto) % Eos % (Auto) % Baso % (Auto) % Neut # (Auto) (1.40-6.50) K/uL Lymph # (Auto) (1.2-3.4) K/uL Stanley # (Auto) (0.11-0.59) K/uL Eos # (Auto) (0-0.50) K/uL Baso # (Auto) (0-0.2) K/uL Immature Gran # (Auto) (0.01-0.20) K/uL POC pH 7.37 (7.35-7.45) POC pCO2 20 L (35-46) mmHg POC pO2 104 H (80-95) mmHg POC HCO3 12 L (19-24) chika/L POC Total CO2 12 L (24-31) mmol/L POC Base Excess -14.0 L (-9-1.8) chika/L POC ABG O2 Sat 98.0 H (90-95) % POC Sodium 127 L (135-144) mmol/L Sodium (136-145) mmol/L POC Potassium 6.1 H* (3.3-5.0) mmol/L Potassium (3.5-5.1) mmol/L Chloride (98-107) mmol/L Carbon Dioxide (21-32) mmol/L Anion Gap (3-11) BUN (6-23) mg/dl Creatinine (0.6-1.4) mg/dl Est Cr Clr Drug Dosing ml/min Est GFR ( Amer) ml/min Est GFR (Non-Af Amer) ml/min BUN/Creatinine Ratio (10-20) Glucose (70-99(Fasting)) mg/dl Calcium (8.6-10.3) mg/dl Phosphorus (2.5-4.9) mg/dl Magnesium (1.7-2.4) mg/dl Total Bilirubin (0.2-1.0) mg/dl AST (13-39) U/L ALT (7-52) U/L Alkaline Phosphatase (34-104) U/L Total Protein (6.0-8.3) gm/dl Albumin (3.4-5.0) gm/dl Globulin (2.5-4.0) gm/dl Albumin/Globulin Ratio (0.9-2) Lipase (11-82) U/L TSH (0.300-4.500) uIu/ml SARS-CoV-2, RNA, NAAT NEGATIVE (NEGATIVE) Administered Medications Sodium Bicarbonate 150 meq/ (Sterile Water) 1,150 mls @ 150 mls/hr IV .Q7H40M [facility] Stop: 11/29/22 06:14 Last Admin: 10/31/22 00:03 Dose: 150 mls/hr Documented By: Infusion: 10/31/22 00:03 Dose: 150 mls/hr Documented By: Admin: 10/30/22 16:31 Dose: 150 mls/hr Documented By: Infusion: 10/30/22 14:21 Dose: 150 mls/hr Documented By: Admin: 10/30/22 06:40 Dose: 150 mls/hr Documented By: BHARGAV Cefepime HCl 1,000 mg/ Syringe 10 mls @ 5 mls/min IV Q24H [facility]; Protocol Stop: 11/09/22 07:59 Last Admin: 10/30/22 08:14 Dose: 5 mls/min Documented By: LIV Insulin Aspart (Insulin Aspart Per Unit Charge) 0 units SC ACHS MITCH Stop: 11/29/22 07:29 Last Admin: 10/30/22 21:38 Dose: Not Given Documented By: Admin: 10/30/22 16:31 Dose: Not Given Documented By: Admin: 10/30/22 11:20 Dose: Not Given Documented By: Admin: 10/30/22 09:33 Dose: Not Given Documented By: DWAINE Discontinued Medications Dextrose (Dextrose 50% 50 Ml Syringe) 50 ml IV NOW STA Stop: 10/30/22 06:47 Last Admin: 10/30/22 07:20 Dose: 50 ml Documented By: LIV Sodium Chloride (Nss 1000ml) 1,000 mls @ 200 mls/hr IV .Q5H [facility] Stop: 11/29/22 04:14 Last Infusion: 10/30/22 10:51 Dose: 0 mls/hr Documented By: Admin: 10/30/22 04:40 Dose: 200 mls/hr Documented By: ISREAL Insulin Human Regular 10 units (/ Syringe) 10 mls @ 30 mls/min IV TODAY@ [facility] Stop: 10/30/22 07:01 Last Admin: 10/30/22 07:18 Dose: 30 mls/min Documented By: LIV Co-signed By: DEANDRA Caspofungin 70 mg/ Sodium (Chloride) 260 mls @ 260 mls/hr IV ONCE ONE; Protocol Stop: 10/30/22 11:29 Last Infusion: 10/30/22 13:10 Dose: 0 mls/hr Documented By: Admin: 10/30/22 11:04 Dose: 260 mls/hr Documented By: DWAINE Patiromer (Patiromer Calcium Sorbitex 8.4 Gm Pack) 8.4 gm PO ONCE ONE Stop: 10/30/22 10:16 Last Admin: 10/30/22 10:49 Dose: 8.4 gm Documented By: [facility] Imaging Data Radiologist's Impression: Abdomen/Pelvis CT 10/30/22 05:16 Exam(s): CT ABDOMEN + PELVIS Without Contrast EXAM: CT Abdomen and Pelvis Without Intravenous Contrast CLINICAL HISTORY: Acute renal failure. TECHNIQUE: Axial computed tomography images of the abdomen and pelvis without intravenous contrast. Automated exposure control was utilized for the study. A dose lowering technique was utilized adhering to the principles of ALARA. COMPARISON: CT abdomen pelvis 08/30/2022. FINDINGS: Lung bases: Unremarkable. No mass. No consolidation. ABDOMEN: Liver: Unremarkable. Gallbladder and bile ducts: Unremarkable. No calcified stones. No ductal dilation. Pancreas: Unremarkable. No ductal dilation. Spleen: Unremarkable. No splenomegaly. Adrenals: Unremarkable. No mass. Kidneys and ureters: Moderate bilateral hydronephrosis with ureteral stents in place. Stomach and bowel: Unremarkable. No obstruction. No mucosal thickening. PELVIS: Appendix: No findings to suggest acute appendicitis. Bladder: Asymmetric thickening of the urinary bladder wall. No stones. Reproductive: Unremarkable as visualized. ABDOMEN and PELVIS: Intraperitoneal space: Unremarkable. No free air. No significant fluid collection. Bones/joints: There are degenerative changes of the spine. No fracture. No dislocation. Soft tissues: Small bilateral fat-containing inguinal hernias. Vasculature: Mild atherosclerosis. No abdominal aortic aneurysm. Lymph nodes: Unremarkable. No enlarged lymph nodes. IMPRESSION: 1. Moderate bilateral hydronephrosis with ureteral stents in place. 2. Asymmetric thickening of the urinary bladder wall. Cannot exclude malignancy. Electronically signed by: Elen Aguilar MD 10/30/22 06:[address] 10/30/22 05:22 Exam(s): CT HEAD Without Contrast EXAM: CT Head Without Intravenous Contrast CLINICAL HISTORY: Trauma. TECHNIQUE: Axial computed tomography images of the head/brain without intravenous contrast. Automated exposure control was utilized for the study. A dose lowering technique was utilized adhering to the principles of ALARA. COMPARISON: No relevant prior studies available. FINDINGS: Brain: No intracranial hemorrhage, mass-effect or midline shift. No abnormal extra axial fluid. No evidence of acute infarct. Mild periventricular white matter hypodensities are most consistent with chronic microangiopathy. Ventricles: Unremarkable. No ventriculomegaly. Bones/joints: Unremarkable. No acute fracture. Soft tissues: Unremarkable. Sinuses: Unremarkable as visualized. No acute sinusitis. Mastoid air cells: Unremarkable as visualized. No mastoid effusion. IMPRESSION: No acute intracranial finding. Electronically signed by: Elen Aguilar MD 10/30/22 05:57 AM Chest X-Ray 10/30/22 06:08 XR chest 1V portable CLINICAL HISTORY: Weakness. COMPARISON STUDY: Chest radiograph September 14, 2022. FINDINGS: Lung volumes are normal. Lungs are clear. There is no pneumothorax or pleural effusion. Cardiac size is normal. Mediastinal contours are normal. There is no evidence for pulmonary edema. A few small radiodensities project over the right hemithorax. These are unchanged. IMPRESSION: No acute cardiopulmonary findings. No change in appearance of the chest. ACT 112: Negative or not required by law. Electronically signed by: Hemant Ortega M.D. 10/30/2022 7:29 AM Discharge Plan Visit Data Chief Complaint: Weakness Stated Complaint: Weakness, Tarry Stool ED Provider: Heena Miller Discharge Problem: Generalized weakness, Bladder cancer, Fall, Diarrhea, KENDRICK (acute kidney injury), Dehydration, Hyperkalemia, Hyponatremia, Hematuria, UTI (urinary tract infection) Patient Disposition: Admitted As Inpatient Discharge Instructions Interventions: ED Discharge Assessment Last Done: 10/30/22 08:30
[2022-10-30] MEDS: SODIUM CHLORIDE 0.9% 1000ML 1,000 ML IV SCH (04:40)
[2022-10-30 04:43] LABS: Albumin Globulin Ratio 0.8 (0.9-2); Albumin Level 3.7 gm/dl (3.4-5.0); Bilirubin,Total 0.4 mg/dl (0.2-1.0); Calcium 9.6 mg/dl (8.6-10.3); Creatinine Clr Calc Pharmacy 5.3 ml/min; Est GFR (Non-African American) 4.3 ml/min; Globulin 4.4 gm/dl (2.5-4.0); Magnesium 3.2 mg/dl (1.7-2.4); Potassium 6.1 mmol/L (3.5-5.1); Total Protein 8.1 gm/dl (6.0-8.3)
[2022-10-30 04:56] LABS: BUN Creatinine Ratio 19.1 (10-20)
--- NOTE | 2022-10-30 05:59 | CT Scan Report ---
Exam(s): CT HEAD Without Contrast EXAM: CT Head Without Intravenous Contrast CLINICAL HISTORY: Trauma. TECHNIQUE: Axial computed tomography images of the head/brain without intravenous contrast. Automated exposure control was utilized for the study. A dose lowering technique was utilized adhering to the principles of ALARA. COMPARISON: No relevant prior studies available. FINDINGS: Brain: No intracranial hemorrhage, mass-effect or midline shift. No abnormal extra axial fluid. No evidence of acute infarct. Mild periventricular white matter hypodensities are most consistent with chronic microangiopathy. Ventricles: Unremarkable. No ventriculomegaly. Bones/joints: Unremarkable. No acute fracture. Soft tissues: Unremarkable. Sinuses: Unremarkable as visualized. No acute sinusitis. Mastoid air cells: Unremarkable as visualized. No mastoid effusion. IMPRESSION: No acute intracranial finding. Electronically signed by: Elen Aguilar MD 10/30/22 05:57 AM
--- NOTE | 2022-10-30 06:13 | CT Scan Report ---
Exam(s): CT ABDOMEN + PELVIS Without Contrast EXAM: CT Abdomen and Pelvis Without Intravenous Contrast CLINICAL HISTORY: Acute renal failure. TECHNIQUE: Axial computed tomography images of the abdomen and pelvis without intravenous contrast. Automated exposure control was utilized for the study. A dose lowering technique was utilized adhering to the principles of ALARA. COMPARISON: CT abdomen pelvis 08/30/2022. FINDINGS: Lung bases: Unremarkable. No mass. No consolidation. ABDOMEN: Liver: Unremarkable. Gallbladder and bile ducts: Unremarkable. No calcified stones. No ductal dilation. Pancreas: Unremarkable. No ductal dilation. Spleen: Unremarkable. No splenomegaly. Adrenals: Unremarkable. No mass. Kidneys and ureters: Moderate bilateral hydronephrosis with ureteral stents in place. Stomach and bowel: Unremarkable. No obstruction. No mucosal thickening. PELVIS: Appendix: No findings to suggest acute appendicitis. Bladder: Asymmetric thickening of the urinary bladder wall. No stones. Reproductive: Unremarkable as visualized. ABDOMEN and PELVIS: Intraperitoneal space: Unremarkable. No free air. No significant fluid collection. Bones/joints: There are degenerative changes of the spine. No fracture. No dislocation. Soft tissues: Small bilateral fat-containing inguinal hernias. Vasculature: Mild atherosclerosis. No abdominal aortic aneurysm. Lymph nodes: Unremarkable. No enlarged lymph nodes. IMPRESSION: 1. Moderate bilateral hydronephrosis with ureteral stents in place. 2. Asymmetric thickening of the urinary bladder wall. Cannot exclude malignancy. Electronically signed by: Elen Aguilar MD 10/30/22 06:12 AM
[2022-10-30 06:23] LABS: iSTAT Arterial Blood Gas HCO3 12 meg/L (19-24); iSTAT Arterial Blood Gas pCO2 20 mmHg (35-46); iSTAT Arterial Blood Gas pH 7.37 (7.35-7.45); iSTAT Arterial Blood Gas pO2 104 mmHg (80-95); iSTAT Carbon Dioxide 12 mmol/L (24-31); iSTAT Hematocrit 36 % (42-52); iSTAT Hemoglobin 12.2 g/dl (14.0-18.0); iSTAT Potassium 6.1 mmol/L (3.3-5.0); iSTAT Sodium 127 mmol/L (135-144)
[2022-10-30] MEDS: SODIUM BICARBONATE 8.4% 150 MEQ in WATER, STERILE 1,000 ML IV SCH ×2 (06:40→16:31)
[2022-10-30] MEDS ORDERED: NovoLIN-R INSULIN PER UNIT CHARGE IV STA (06:46)
[2022-10-30] MEDS ORDERED: DEXTROSE 50% 50 ML SYRINGE IV STA (06:46)
[2022-10-30] MEDS ORDERED: GLUCOSE 10 TAB/TUBE PO PRN (06:57)
[2022-10-30] MEDS ORDERED: DEXTROSE 50% 50 ML SYRINGE IV PRN (06:57)
[2022-10-30] MEDS ORDERED: GLUCAGON FOR INJ 1 MG VIAL SQ PRN (06:57)
[2022-10-30] MEDS ORDERED: GLUCOSE 40% GEL 15 GM TUBE PO PRN (06:57)
[2022-10-30] MEDS ORDERED: CARBOHYDRATES FOR HYPOGLYCEMIA PO PRN (06:57)
--- NOTE | 2022-10-30 06:59 | History & Physical Report ---
Date of Service October 30, 2022 Assessment & Plan (1) ARF (acute renal failure): (2) Generalized weakness: (3) Fall: (4) Hyperkalemia, diminished renal excretion: (5) Bladder tumor: (6) CAD (coronary artery disease): (7) Stented coronary artery: (8) Hydronephrosis: (9) S/P ureteral stent placement: (10) Diabetes mellitus, type 2: (11) Dyslipidemia: Plan Acute renal failure/hyperkalemia- Creatinine 10.44, with baseline 1.20 1-month ago BUN 199 Received 1 L normal saline from the ED Start bicarb drip 150 mEq at 150 mils per hour 50 mils of D50, followed by 10 units of regular insulin IV Repeat laboratories at 11 AM Hold chlorthalidone and lisinopril Bladder tumor status post resection/bilateral ureteral stents/hydronephrosis bilaterally- IV fluids as above Follow urine culture and sensitivity Consult urology Empiric cefepime 1 g IV every 12 hours CAD/hypertension/stented coronary arteries- Holding aspirin, clopidogrel, chlorthalidone, lisinopril and metoprolol succinate due to borderline pressures and acute renal failure BPH with LUTS- Holding tamsulosin until he can take oral Diabetes mellitus- Hold metformin Placed on Accu-Cheks with NovoLog SSI History of Present Illness Chief Complaint: The patient presents to the emergency department after a fall at home as he attempted to stand from his couch and fell to the floor, and reports that he has been very weak over the past few weeks due to daily diarrhea, and has not had any food intake for the past 3 days and water intake has been sparing. Primary Care Provider: Delmi Umanzor MD The patient is a 77-year-old male with a past medical history including bladder cancer, acute blood loss anemia, urinary tract infection, history of colon po lyps, CAD, stented coronary artery, bilateral ureteral stent placement and hydronephrosis. The patient has had urologic procedures for bladder cancer, and had bilateral ureteral stent placement. He reports that over the past several weeks he has had decreased oral intake, and has had diarrhea on a daily basis. His last oral intake was 3 days ago, he reports that he is lost 20 pounds in the last month. He presented to the emergency department today because he would fell as he was try to get up from the couch due to generalized weakness. Significant laboratories: WBC 11.71, hemoglobin 13.3, hematocrit 39.6, sodium 127, potassium 6.1, chloride 93, bicarb 13, glucose 199, creatinine 10.44, magnesium 3.2, lipase 204. ABG pH 7.37, PCO2 20, PO2 104, bicarb 12 CT scan of abdomen and pelvis shows bilateral hydronephrosis, and presence of bilateral ureteral stents, with bladder wall thickening suggestive of possible cancer Allergies Allergy/AdvReac Type Severity Reaction Status Date / Time No Known Allergies Allergy Verified 09/24/22 09:55 Home Medications Medication Instructions Recorded Confirmed Type aspirin 81 mg chewable tablet 1 tab PO QAM 12/02/18 09/24/22 History chlorthalidone 25 mg tablet 12.5 mg PO BID #90 tabs 10/24/21 09/24/22 Rx lisinopril 40 mg tablet 40 mg PO QAM 12/19/21 09/24/22 History metformin 500 mg tablet,extended 500 mg PO BID #180 tabs 03/19/22 09/24/22 Rx release 24 hr metoprolol succinate 200 mg 200 mg PO BID #180 tabs 06/13/22 09/24/22 Rx tablet,extended release 24 hr clopidogrel 75 mg tablet 75 mg PO QAM #90 tabs 06/21/22 09/24/22 Rx atorvastatin 80 mg tablet 80 mg PO QAM #90 tabs 07/09/22 09/24/22 Rx amlodipine 10 mg tablet 10 mg PO QAM 09/14/22 09/24/22 History fluconazole 100 mg tablet 100 mg PO DAILY #5 tabs 09/16/22 09/24/22 Rx (Diflucan) oxybutynin chloride 5 mg tablet 5 mg PO Q8H PRN bladder spasms #20 09/24/22 Rx tabs oxycodone-acetaminophen 7.5 mg-325 1 tab PO Q8H PRN pain #7 tabs 09/24/22 Rx mg tablet (Percocet) phenazopyridine 200 mg tablet 200 mg PO Q8H PRN pain #10 tabs 09/24/22 Rx (Pyridium) tamsulosin 0.4 mg capsule 0.4 mg PO HS #30 caps 09/24/22 Rx finasteride 5 mg tablet 5 mg PO DAILY #30 tabs 10/02/22 10/02/22 Rx tamsulosin 0.4 mg capsule 0.4 mg PO DAILY #30 caps 10/02/22 10/02/22 Rx Past Med/Surg History Medical History (Updated 10/30/22 @ 06:52 by Johnson Mathews MD) ARF (acute renal failure) Benign enlargement of prostate Bladder cancer newly diagnosed 08/2022. CAD (coronary artery disease) "Multi-Vessel CAD s/p Ostial and Proximal LAD NEVA x 2 and OM1 NEVA 07/01/2018 (with residual borderline D2 stenosis, OM2 stenosis, RCA/PDA stenoses which are felt amenable to complex PCI" follows with [place] [facility]ology Diabetes mellitus, type 2 NIDDM Dyslipidemia History of colon polyps Hypertension Low back pain Multi-vessel coronary artery stenosis Myocardial Infarction ~3 years ago. follows with Erik Beltran. Tubular adenoma of colon Surgical History (Updated 10/30/22 @ 06:52 by Johnson Mathews MD) H/O colonoscopy 08/2016, repeat 5 yrs History of cardiac cath ~3 years ago, "failed stress test, needed cath", [place] History of open reduction and internal fixation (ORIF) procedure Lt. Femur Stented coronary artery ~3 years ago, [facility], following cath at [facility], x1 stent (resolut summer) placed; now f/u Luis Manuel Beltran PA-C, [facility] Cardio. Family History Father Non-Hodgkin's lymphoma Mother Multiple myeloma Sister Dyslipidemia Heart disease Hypertension Uncle Myocardial infarction Other No family history of adverse response to anesthesia Denies family history of Ovarian cancer Prostate cancer Breast cancer Colorectal cancer Social History Smoking Status: Former smoker Second Hand Exposure: No; Do You Dip or Chew Tobacco: No; Hx Alcohol Use: No Hx Substance Use: No Preferred Language: Japanese Communication Ability: Effective Visual Impairment: Limited Hearing Ability: Normal Heater Installer Required: No Beliefs That Will Affect Care: None marital status: Single Current Living Situation: Alone current occupational status: retired How many Children do You have: 0 Feels Safe at Home: Yes Childhood Exposure to Second-Hand Smoke: Yes caffeine: Yes Dental Care, Regularly: Yes Physical Activity Frequency: Daily Seatbelt Use: always Sunscreen Use: Yes Assistive Devices: Other (Walking Stick) Review of Systems Review of Systems: The patient denies chest pain, palpitations, shortness of breath, dyspnea on exertion, cough, lower extremity swelling, sore throat, fevers, chills, sweats, weight change, blood in urine or stool, lightheadedness, dizziness, headache, memory loss, loss of consciousness, rash, abnormal bruising or bleeding, focal weakness, numbness or tingling in arms or legs, generalized arthralgias or myalgias, back or neck pain, or night sweats. The review of systems is otherwise negative other than for that already noted above, and at least 10 systems have been reviewed. Physical Exam Physical Exam: The patient is awake, alert and oriented 3, cachectic appearing, normocephalic and atraumatic, lying in bed and in no acute distress. HEENT--PERRL, EOMI, mucous membranes and oropharynx dry. Neck--supple. No JVD. No bruits. Thyroid normal, trachea midline, no adenopathy. Heart--normal S1 and S2. No murmurs, rubs or gallops. Lungs--clear bilaterally, no respiratory distress, no accessory muscle use. Abdomen--normal bowel sounds and soft. Nontender. Nondistended, no hernias or masses, no organomegaly. Extremities--no cyanosis or clubbing. No edema. There are good distal pulses b/l. Dermatologic--normal skin turgor, normal color, no abnormal lymph nodes, no rash. Neurologic--cranial nerves II through XII grossly intact. Rheumatologic--limited exam Psychiatric--normal affect. Results & Data Results & Data Vital Signs (Past 12 Hours) Vital Signs Temp Pulse Pulse Resp BP BP Pulse Ox 10/30/22 04:30 100 H 23 98 10/30/22 04:00 96 H 19 95 10/30/22 03:56 93 H 18 98 10/30/22 03:55 96 H 10/30/22 03:58 36.4 C L 93 H 18 127/70 100 10/30/22 03:58 36.4 C L 93 H 15 127/70 100 O2 Del Method 10/30/22 04:30 Room Air 10/30/22 04:00 Room Air 10/30/22 03:56 Room Air 10/30/22 03:55 10/30/22 03:58 Room Air 10/30/22 03:58 Room Air Laboratory Results Laboratory Results WBC 11.71 K/ul (4.8-10.8) H 10/30/22 04:09 RBC 4.79 M/uL (4.70-6.10) 10/30/22 04:09 Hgb 13.3 g/dl (14.0-18.0) L 10/30/22 04:09 POC Hgb 12.2 g/dl (14.0-18.0) L 10/30/22 06:07 Hct 39.6 % (42.0-52.0) L 10/30/22 04:09 POC Hct 36 % (42-52) L 10/30/22 06:07 MCV 82.7 fL (80.0-100.0) 10/30/22 04:09 MCH 27.8 pg (25.0-34.0) 10/30/22 04:09 MCHC 33.6 g/dL (32.0-36.0) 10/30/22 04:09 RDW Std Deviation 42.0 fL (36.4-46.3) 10/30/22 04:09 RDW Coeff of Elsi 13.9 % (11.5-14.5) 10/30/22 04:09 Plt Count 266 K/uL (130-400) 10/30/22 04:09 MPV 11.4 fL (9.4-12.4) 10/30/22 04:09 Immature Gran % (Auto) 0.4 % 10/30/22 04:09 Neut % (Auto) 78.9 % 10/30/22 04:09 Lymph % (Auto) 13.8 % 10/30/22 04:09 [place] % (Auto) 6.1 % 10/30/22 04:09 Eos % (Auto) 0.3 % 10/30/22 04:09 Baso % (Auto) 0.5 % 10/30/22 04:09 Neut # (Auto) 9.22 K/uL (1.40-6.50) H 10/30/22 04:09 Lymph # (Auto) 1.62 K/uL (1.2-3.4) 10/30/22 04:09 [place] # (Auto) 0.72 K/uL (0.11-0.59) H 10/30/22 04:09 Eos # (Auto) 0.04 K/uL (0-0.50) 10/30/22 04:09 Baso # (Auto) 0.06 K/uL (0-0.2) 10/30/22 04:09 Immature Gran # (Auto) 0.05 K/uL (0.01-0.20) 10/30/22 04:09 POC pH 7.37 (7.35-7.45) 10/30/22 06:07 POC pCO2 20 mmHg (35-46) L 10/30/22 06:07 POC pO2 104 mmHg (80-95) H 10/30/22 06:07 POC HCO3 12 chika/L (19-24) L 10/30/22 06:07 POC Total CO2 12 mmol/L (24-31) L 10/30/22 06:07 POC Base Excess -14.0 chika/L (-9-1.8) L 10/30/22 06:07 POC ABG O2 Sat 98.0 % (90-95) H 10/30/22 06:07 POC Sodium 127 mmol/L (135-144) L 10/30/22 06:07 Sodium 127 mmol/L (136-145) L 10/30/22 04:09 POC Potassium 6.1 mmol/L (3.3-5.0) H* 10/30/22 06:07 Potassium 6.1 mmol/L (3.5-5.1) H* 10/30/22 04:09 Chloride 93 mmol/L (98-107) L 10/30/22 04:09 Carbon Dioxide 13 mmol/L (21-32) L 10/30/22 04:09 Anion Gap 21 (3-11) H 10/30/22 04:09 BUN 199 mg/dl (6-23) H 10/30/22 04:09 Creatinine 10.44 mg/dl (0.6-1.4) H* 10/30/22 04:09 Est Cr Clr Drug Dosing 5.3 ml/min 10/30/22 04:09 Est GFR ( Amer) 5.0 ml/min 10/30/22 04:09 Est GFR (Non-Af Amer) 4.3 ml/min 10/30/22 04:09 BUN/Creatinine Ratio 19.1 (10-20) 10/30/22 04:09 Glucose 91 mg/dl (70-99(Fasting)) 10/30/22 04:09 Calcium 9.6 mg/dl (8.6-10.3) 10/30/22 04:09 Magnesium 3.2 mg/dl (1.7-2.4) H 10/30/22 04:09 Total Bilirubin 0.4 mg/dl (0.2-1.0) 10/30/22 04:09 AST 14 U/L (13-39) 10/30/22 04:09 ALT 11 U/L (7-52) 10/30/22 04:09 Alkaline Phosphatase 89 U/L (34-104) 10/30/22 04:09 Total Protein 8.1 gm/dl (6.0-8.3) 10/30/22 04:09 Albumin 3.7 gm/dl (3.4-5.0) 10/30/22 04:09 Globulin 4.4 gm/dl (2.5-4.0) H 10/30/22 04:09 Albumin/Globulin Ratio 0.8 (0.9-2) L 10/30/22 04:09 Lipase 204 U/L (11-82) H 10/30/22 04:09 TSH 0.936 uIu/ml (0.300-4.500) 10/30/22 04:09 SARS-CoV-2, RNA, NAAT NEGATIVE (NEGATIVE) 10/30/22 05:53 Impressions Abdomen/Pelvis CT 10/30/22 05:16 Exam(s): CT ABDOMEN + PELVIS Without Contrast EXAM: CT Abdomen and Pelvis Without Intravenous Contrast CLINICAL HISTORY: Acute renal failure. TECHNIQUE: Axial computed tomography images of the abdomen and pelvis without intravenous contrast. Automated exposure control was utilized for the study. A dose lowering technique was utilized adhering to the principles of ALARA. COMPARISON: CT abdomen pelvis 08/30/2022. FINDINGS: Lung bases: Unremarkable. No mass. No consolidation. ABDOMEN: Liver: Unremarkable. Gallbladder and bile ducts: Unremarkable. No calcified stones. No ductal dilation. Pancreas: Unremarkable. No ductal dilation. Spleen: Unremarkable. No splenomegaly. Adrenals: Unremarkable. No mass. Kidneys and ureters: Moderate bilateral hydronephrosis with ureteral stents in place. Stomach and bowel: Unremarkable. No obstruction. No mucosal thickening. PELVIS: Appendix: No findings to suggest acute appendicitis. Bladder: Asymmetric thickening of the urinary bladder wall. No stones. Reproductive: Unremarkable as visualized. ABDOMEN and PELVIS: Intraperitoneal space: Unremarkable. No free air. No significant fluid collection. Bones/joints: There are degenerative changes of the spine. No fracture. No dislocation. Soft tissues: Small bilateral fat-containing inguinal hernias. Vasculature: Mild atherosclerosis. No abdominal aortic aneurysm. Lymph nodes: Unremarkable. No enlarged lymph nodes. IMPRESSION: 1. Moderate bilateral hydronephrosis with ureteral stents in place. 2. Asymmetric thickening of the urinary bladder wall. Cannot exclude malignancy. Electronically signed by: Elen Aguilar MD 10/30/22 06:[address] 10/30/22 05:22 Exam(s): CT HEAD Without Contrast EXAM: CT Head Without Intravenous Contrast CLINICAL HISTORY: Trauma. TECHNIQUE: Axial computed tomography images of the head/brain without intravenous contrast. Automated exposure control was utilized for the study. A dose lowering technique was utilized adhering to the principles of ALARA. COMPARISON: No relevant prior studies available. FINDINGS: Brain: No intracranial hemorrhage, mass-effect or midline shift. No abnormal extra axial fluid. No evidence of acute infarct. Mild periventricular white matter hypodensities are most consistent with chronic microangiopathy. Ventricles: Unremarkable. No ventriculomegaly. Bones/joints: Unremarkable. No acute fracture. Soft tissues: Unremarkable. Sinuses: Unremarkable as visualized. No acute sinusitis. Mastoid air cells: Unremarkable as visualized. No mastoid effusion. IMPRESSION: No acute intracranial finding. Electronically signed by: Elen Aguilar MD 10/30/22 05:57 AM Code Status & VTE Plan Code Status Full code VTE Prophylaxis Plan VTE Prophylaxis will be ordered: Yes PG Care Time/CCT Total # of Minutes Spent Total Time Spent with Patient: Total time spent is greater than 50% in coordination of care (as documented) at patient's floor/unit and/or counseling patient: Coding Level of Care Code 42391 INT INP/OBS CARE 3/75MIN Diagnoses ARF (acute renal failure) N17.9 Generalized weakness R53.1 Fall W19.XXXA Hyperkalemia, diminished renal excretion E87.5 Bladder tumor D49.4 CAD (coronary artery disease) I25.10 Stented coronary artery Z95.5 Hydronephrosis N13.30 S/P ureteral stent placement Z96.0 Diabetes mellitus, type 2 E11.9 Dyslipidemia E78.5
[2022-10-30 07:00] LABS: Appearance Urine Turbid (Clear); Bacteria Urine Automated Negative (Negative); Bilirubin Urine Negative (Negative); Blood Urine 3+ (Negative); Color Urine Yellow; Epithelial Cell Urine Auto >30 /lpf (0-5); Glucose Urine UA Negative (Negative); Ketones Urine Trace (Negative); Leukocyte Esterase Urine 3+ (Negative); Nitrite Urine Negative (Negative); Protein Urine 2+ (Negative); Specific Gravity Urine 1.014 (1.000-1.030); Urobilinogen Urine Negative (Negative); WBC Urine Automated >30 /hpf (0-5)
[2022-10-30] MEDS ORDERED: INSULIN HUMAN REGULAR PER UNIT 10 UNITS in SYRINGE 9.9 ML IV SCH (07:00)
--- NOTE | 2022-10-30 07:30 | XRay Report ---
XR chest 1V portable CLINICAL HISTORY: Weakness. COMPARISON STUDY: Chest radiograph September 14, 2022. FINDINGS: Lung volumes are normal. Lungs are clear. There is no pneumothorax or pleural effusion. Car diac size is normal. Mediastinal contours are normal. There is no evidence for pulmonary edema. A few small radiodensities project over the right hemithorax. These are unchanged. IMPRESSION: No acute cardiopulmonary findings. No change in appearance of the chest. ACT 112: Negative or not required by law. Electronically signed by: Hemant Ortega M.D. 10/30/2022 7:29 AM
[2022-10-30] MEDS: CEFEPIME 1,000 MG in SYRINGE 0 ML IV SCH (08:14)
[2022-10-30] MEDS ORDERED: ONDANSETRON INJ 2 MG/ML 2 ML VIAL IV PRN (08:45)
--- NOTE | 2022-10-30 09:25 | Urology Consultation ---
Date of Consultation October 30, 2022 Assessment & Plan (1) S/P ureteral stent placement: (2) Bladder cancer: (3) ARF (acute renal failure): 77-year-old male with history of bladder cancer status post resection x2 and bilateral ureteral stents admitted for generalized weakness, acute renal failure, and hyperkalemia. Pt is afebrile and hemodynamically stable. Labs reviewed- creatinine 10.44, WBC 11.71, hemoglobin 13.3. Continue to trend labs. CT A/P independently reviewed- bilateral hydroureteronephrosis, bilateral ureteral stents are in good position (last exchanged on 09/24/2022). Urine and blood cultures are pending. He is on IV cefepime currently. Continue broad spectrum antibiotics and narrow per sensitivity data when available. He reports he is making urine - continue to monitor urine output with strict I&Os. Will try to avoid Kennedy catheter currently as this may cause more irritation. Suspect there is some prerenal component to ARF. He is pending nephrology evaluation - appreciate their recommendations. There is some progression of b/l hydro noted since previous imaging, stents are in good position and recently exchanged - no current indication to exchange stents at this time. If creatinine is not improving with IV fluids and supportive measures, he may require percutaneous nephrostomy tubes. Discussed this with patient. Recommend supportive care and trend labs. will follow. History of Present Illness Reason for Consultation: bladder CA, ARF, hyperkalemia Requesting Physician: Dr. Mathews Attending Physician: Johnson Mathews MD History of Present Illness This is a 77-year-old male with PMHx of type 2 diabetes, anemia, CAD with multivessel coronary disease with history of PCI/stents on aspirin and Plavix, and bladder cancer s/p TURBT x 2 and bilateral ureteral stents who presented to the emergency department on 10/30/22 with complaint of fall, generalized weakness, and several week history of low oral intake and diarrhea admitted for acute renal failure, hyperkalemia, and bladder cancer. On arrival, he was afebrile and hemodynamically stable. Lab work notable for creatinine of 10.44 (Creatinine was 1.2 on 09/14/22), Na 127, K 6.1, WBC 11.71, and Hgb 13.3. Urinalysis showed 2+ protein, trace ketones, 3+ blood, 3+ LE, >30 WBC, 5-10 RBC, >30 epithelials, budding yeast; negative for bacteria and nitrates. CT A/P independently reviewed and notable for moderate bilateral hydroureteronephrosis which appears worse since previous imaging, bilateral ureteral stents in appropriate position, asymmetric thickening of the bladder wall. ED course included: IV fluids, sodium bicarbonate, insulin and dextrose. Urology consulted for bladder CA, ARF, hyperkalemia. Patient is known to our service for history of bladder cancer. He is s/p TURBT and bilateral ureteral stent exchange on 09/24/22. Patient seen and examined at bedside this morning. He is asleep, arouses easily to his name. Denies any abdominal, suprapubic or flank discomfort. Subjectively feeling better since arrival. Denies nausea, vomiting, fever or chills. Reports he is voiding spontaneously without difficulty. No dysuria or hematuria. He reports several weeks of low oral intake, diarrhea and weakness. No additional concerns at this time. Allergies Allergy/AdvReac Type Severity Reaction Status Date / Time No Known Allergies Allergy Verified 10/30/22 08:23 Home Medications Medication Instructions Recorded Confirmed Type aspirin 81 mg chewable tablet 1 tab PO QAM 12/02/18 10/30/22 History chlorthalidone 25 mg tablet 12.5 mg PO BID #90 tabs 10/24/21 10/30/22 Rx lisinopril 40 mg tablet 40 mg PO QAM 12/19/21 10/30/22 History metformin 500 mg tablet,extended 500 mg PO BID #180 tabs 03/19/22 10/30/22 Rx release 24 hr metoprolol succinate 200 mg 200 mg PO BID #180 tabs 06/13/22 10/30/22 Rx tablet,extended release 24 hr clopidogrel 75 mg tablet 75 mg PO QAM #90 tabs 06/21/22 10/30/22 Rx atorvastatin 80 mg tablet 80 mg PO QAM #90 tabs 07/09/22 10/30/22 Rx amlodipine 10 mg tablet 10 mg PO QAM 09/14/22 10/30/22 History fluconazole 100 mg tablet 100 mg PO DAILY #5 tabs 09/16/22 10/30/22 Rx (Diflucan) oxybutynin chloride 5 mg tablet 5 mg PO Q8H PRN bladder spasms #20 09/24/22 10/30/22 Rx tabs oxycodone-acetaminophen 7.5 mg-325 1 tab PO Q8H PRN pain #7 tabs 09/24/22 10/30/22 Rx mg tablet (Percocet) phenazopyridine 200 mg tablet 200 mg PO Q8H PRN pain #10 tabs 09/24/22 10/30/22 Rx (Pyridium) finasteride 5 mg tablet 5 mg PO DAILY #30 tabs 10/02/22 10/30/22 Rx tamsulosin 0.4 mg capsule 0.4 mg PO DAILY #30 caps 10/02/22 10/30/22 Rx Patient History Medical History ARF (acute renal failure) Benign enlargement of prostate Bladder cancer newly diagnosed 08/2022. CAD (coronary artery disease) "Multi-Vessel CAD s/p Ostial and Proximal LAD NEVA x 2 and OM1 NEVA 07/01/2018 (with residual borderline D2 stenosis, OM2 stenosis, RCA/PDA stenoses which are felt amenable to complex PCI" follows with [place] cardiology Diabetes mellitus, type 2 NIDDM Dyslipidemia History of colon polyps Hypertension Low back pain Multi-vessel coronary artery stenosis Myocardial Infarction ~3 years ago. follows with Erik Beltran. Tubular adenoma of colon Surgical History H/O colonoscopy 08/2016, repeat 5 yrs History of cardiac cath ~3 years ago, "failed stress test, needed cath", [place] History of open reduction and internal fixation (ORIF) procedure Lt. Femur Stented coronary artery ~3 years ago, [facility], following cath at [facility], x1 stent (resolut summer) placed; now f/u Luis Manuel Beltran PA-C, [facility] Cardio. Family History Father Non-Hodgkin's lymphoma Mother Multiple myeloma Sister Dyslipidemia Heart disease Hypertension Uncle Myocardial infarction Other No family history of adverse response to anesthesia Denies family history of Ovarian cancer Prostate cancer Breast cancer Colorectal cancer Social History Smoking Status: Former smoker Second Hand Exposure: No; Do You Dip or Chew Tobacco: No; Hx Alcohol Use: No Hx Substance Use: No Preferred Language: [place] Leonean Communication Ability: Effective Visual Impairment: Limited Hearing Ability: Normal Cartridge Maker Required: No Beliefs That Will Affect Care: None marital status: Single Current Living Situation: Alone current occupational status: retired How many Children do You have: 0 Feels Safe at Home: Yes Childhood Exposure to Second-Hand Smoke: Yes caffeine: Yes Dental Care, Regularly: Yes Physical Activity Frequency: Daily Seatbelt Use: always Sunscreen Use: Yes Assistive Devices: Other (Walking Stick) Review of Systems Review of Systems: All systems reviewed & are unremarkable except as noted in HPI & below Physical Exam Constitutional: + thin; no acute distress Eyes: no scleral abnormality Neck: trachea midline Respiratory: normal respiratory effort; no respiratory distress and no labored breathing Cardiovascular: Extremities: no pedal edema Gastrointestinal (Abdomen): Inspection/Auscultation: abdomen normal to inspection; abdomen not distended Percussion/Palpation: abdomen soft; abdomen nontender Musculoskeletal: Head/Neck/Chest: normocephalic Skin: no visible rashes to exposed skin Neurologic: moves all extremities and awake Psychiatric: Orientation: alert and oriented x 3 Results & Data Vital Signs (Past 12 Hours) Vital Signs Temp Pulse Pulse Resp BP BP Pulse Ox 10/30/22 09:00 86 17 10/30/22 09:00 134/72 10/30/22 08:45 89 20 10/30/22 09:14 36.6 C 10/30/22 07:14 92 H 18 122/64 99 10/30/22 07:08 122/64 10/30/22 07:08 87 22 100 10/30/22 07:00 78 10/30/22 06:41 100 10/30/22 06:41 128/78 10/30/22 06:30 98 10/30/22 06:00 91 H 13 99 10/30/22 05:00 90 24 96 10/30/22 04:30 100 H 23 98 10/30/22 04:00 96 H 19 95 10/30/22 03:56 93 H 18 98 10/30/22 03:55 96 H 10/30/22 03:58 36.4 C L 93 H 18 127/70 100 10/30/22 03:58 36.4 C L 93 H 15 127/70 100 O2 Del Method 10/30/22 09:00 10/30/22 09:00 10/30/22 08:45 10/30/22 09:14 10/30/22 07:14 Room Air 10/30/22 07:08 10/30/22 07:08 10/30/22 07:00 10/30/22 06:41 10/30/22 06:41 10/30/22 06:30 10/30/22 06:00 10/30/22 05:00 10/30/22 04:30 Room Air 10/30/22 04:00 Room Air 10/30/22 03:56 Room Air 10/30/22 03:55 10/30/22 03:58 Room Air 10/30/22 03:58 Room Air PG Care Time/CCT Total # of Minutes Spent Total Time Spent with Patient: Total time spent is greater than 50% in coordination of care (as documented) at patient's floor/unit and/or counseling patient: Coding Level of Care Code 84210 INT INP/OBS CARE 2/55MIN Diagnoses S/P ureteral stent placement Z96.0 Bladder cancer C67.9 ARF (acute renal failure) N17.9 Time Spent (min) 60
[2022-10-30] MEDS: INSULIN ASPART PER UNIT CHARGE SC SCH ×4 (09:33→21:38)
[2022-10-30 09:50] LABS: Phosphorus 11.5 mg/dl (2.5-4.9)
[2022-10-30] MEDS ORDERED: PATIROMER CALCIUM SORBITEX 8.4 GM PACK PO ONE (10:15)
[2022-10-30] MEDS ORDERED: CASPOFUNGIN 70 MG in SODIUM CHLORIDE 0.9% 250 ML IV ONE (10:30)
--- NOTE | 2022-10-30 10:46 | Nephrology Consultation ---
Date of Consultation October 30, 2022 Assessment & Plan (1) KENDRICK (acute kidney injury): (2) Hydronephrosis: (3) Generalized weakness: (4) Hyperkalemia, diminished renal excretion: (5) Hyponatremia: (6) S/P ureteral stent placement: (7) Fall: (8) Bladder tumor: Plan 77-year-old gentleman with baseline decent renal function, creatinine 1.2, recent diagnosis of bladder cancer status post TURBT and bilateral ureteral stent, admitted with few weeks history of generalized weakness poor p.o. intake and noted to have KENDRICK, creatinine 10.4, BUN 199 with multiple electrolyte abnormality including hyperkalemia, hyponatremia and imaging study showing moderate bilateral hydronephrosis which is worse than prior imaging. Although there could be some component of volume depletion contributing to KENDRICK and critical multiple electrolyte abnormality however clearly bilateral hydronephrosis significantly worsened compared to prior imaging even though ureteral stent is functioning. -- Agree with continuing on IV fluid and monitoring electrolyte and renal function closely however would definitely recommend considering urological intervention for moderate bilateral hydronephrosis. --Continue on IV fluid, if potassium remains above 5.8, give 1 dose of V[place] -- would not consider dialysis with significant obstructive uropathy -- dose medications for EGFR less than 10, avoid all nephrotoxic medications. Thank you for allowing me to participate in your patient's care. It was a pleasure to see Neo. History of Present Illness Reason for Consultation: Obstructive uropathy, KENDRICK and multiple electrolyte abnormality. Attending Physician: Srini Meza MD History of Present Illness Mr. Neo Lagos a 77-year-old male with a past medical history including bladder cancer s/p TURB, b/l stent , acute blood loss anemia, urinary tract infection, history of colon polyps, CAD admitted to hospital with generalized weakness, fall at home and found to have KENDRICK, multiple electrolyte abnormality and obstructive uropathy. Nephrology consult requested for management of above. EMR records reviewed in detail during patient's visit. Radhames Presented to ER with several week history of decreased p.o. intake, diarrhea and weight loss of more than 20 lbs. he was so weak at home that he even had a fall and he just felt like he did not have any will to get up and make any food for himself. He reports decent urine output at home. Denies taking any NSAIDs at home. On admission he was noted to have creatinine of 10.4, BUN 199, potassium 6.1, sodium 127, bicarb 13, hemoglobin 13.3. Had decent renal and creatinine around 1.2 on 09/14/2022 although he had an episode of KENDRICK in August when creatinine was 4.6 around the time he was diagnosed with bladder cancer. CT abdomen pelvis showed moderate bilateral hydroureter nephrosis with bilateral ureteral stent. Looking at prior imaging from August showed mild hydronephrosis which significantly worsen. Since admission he was started on IV fluid, currently normal saline at 100 mL/hour and bicarb drip running at 150 mL/hour. Repeat lab pending. He was diagnosed with bladder tumor and had TURP and TURBT on 09/24/22. he reports total more than 40 lb weight lost over last few months. Past medical history also significant for history of coronary artery disease status post PCI and stent 3 years ago. Ex-smoker. No family history of CKD or ESRD but dad had history of lymphoma and mom had history of multiple myeloma. Overall continues to feel weak and tired but denies any shortness of breath or chest pain. Appetite remains poor but no nausea, vomiting or diarrhea. Allergies Allergy/AdvReac Type Severity Reaction Status Date / Time No Known Allergies Allergy Verified 10/30/22 08:23 Home Medications Medication Instructions Recorded Confirmed Type aspirin 81 mg chewable tablet 1 tab PO QAM 12/02/18 10/30/22 History chlorthalidone 25 mg tablet 12.5 mg PO BID #90 tabs 10/24/21 10/30/22 Rx lisinopril 40 mg tablet 40 mg PO QAM 12/19/21 10/30/22 History metformin 500 mg tablet,extended 500 mg PO BID #180 tabs 03/19/22 10/30/22 Rx release 24 hr metoprolol succinate 200 mg 200 mg PO BID #180 tabs 06/13/22 10/30/22 Rx tablet,extended release 24 hr clopidogrel 75 mg tablet 75 mg PO QAM #90 tabs 06/21/22 10/30/22 Rx atorvastatin 80 mg tablet 80 mg PO QAM #90 tabs 07/09/22 10/30/22 Rx amlodipine 10 mg tablet 10 mg PO QAM 09/14/22 10/30/22 History fluconazole 100 mg tablet 100 mg PO DAILY #5 tabs 09/16/22 10/30/22 Rx (Diflucan) oxybutynin chloride 5 mg tablet 5 mg PO Q8H PRN bladder spasms #20 09/24/22 10/30/22 Rx tabs oxycodone-acetaminophen 7.5 mg-325 1 tab PO Q8H PRN pain #7 tabs 09/24/22 10/30/22 Rx mg tablet (Percocet) phenazopyridine 200 mg tablet 200 mg PO Q8H PRN pain #10 tabs 09/24/22 10/30/22 Rx (Pyridium) finasteride 5 mg tablet 5 mg PO DAILY #30 tabs 10/02/22 10/30/22 Rx tamsulosin 0.4 mg capsule 0.4 mg PO DAILY #30 caps 10/02/22 10/30/22 Rx Patient History Medical History ARF (acute renal failure) Benign enlargement of prostate Bladder cancer newly diagnosed 08/2022. CAD (coronary artery disease) "Multi-Vessel CAD s/p Ostial and Proximal LAD NEVA x 2 and OM1 NEVA 07/01/2018 (with residual borderline D2 stenosis, OM2 stenosis, RCA/PDA stenoses which are felt amenable to complex PCI" follows with CT cardiology Diabetes mellitus, type 2 NIDDM Dyslipidemia History of colon polyps Hypertension Low back pain Multi-vessel coronary artery stenosis Myocardial Infarction ~3 years ago. follows with Erik Beltran. Tubular adenoma of colon Surgical History H/O colonoscopy 08/2016, repeat 5 yrs History of cardiac cath ~3 years ago, "failed stress test, needed cath", CT History of open reduction and internal fixation (ORIF) procedure Lt. Femur Stented coronary artery ~3 years ago, [facility], following cath at [facility], x1 stent (resolut summer) placed; now f/u Luis Manuel Beltran PA-C, [facility] Cardio. Family History Father Non-Hodgkin's lymphoma Mother Multiple myeloma Sister Dyslipidemia Heart disease Hypertension Uncle Myocardial infarction Other No family history of adverse response to anesthesia Denies family history of Ovarian cancer Prostate cancer Breast cancer Colorectal cancer Social History Smoking Status: Former smoker Second Hand Exposure: No; Do You Dip or Chew Tobacco: No; Hx Alcohol Use: No Hx Substance Use: No Preferred Language: Urdu Communication Ability: Effective Visual Impairment: Limited Hearing Ability: Normal Correctional Guard Required: No Beliefs That Will Affect Care: None marital status: Single Current Living Situation: Alone current occupational status: retired How many Children do You have: 0 Feels Safe at Home: Yes Childhood Exposure to Second-Hand Smoke: Yes caffeine: Yes Dental Care, Regularly: Yes Physical Activity Frequency: Daily Seatbelt Use: always Sunscreen Use: Yes Assistive Devices: Other (Walking Stick) Review of Systems Review of Systems: Detailed review of system was done and pertinent positives and negatives were mentioned above. Physical Exam Constitutional: WD/WN, vitals as above + ill appearing and + thin; no acute distress Eyes: + anicteric sclerae Neck: normal visual inspection Respiratory: no respiratory distress Auscultation: lungs clear to auscultation bilaterally Cardiovascular: Rate/Rhythm: regular rate and regular rhythm Heart Sounds: normal S1 and normal S2 Extremities: no edema Gastrointestinal (Abdomen): Inspection/Auscultation: abdomen normal to inspection and normal bowel sounds Percussion/Palpation: abdomen soft; abdomen nontender Musculoskeletal: Extremities: extremities normal to inspection Skin: no rashes, warm and dry Neurologic: no focal motor deficits and not confused Psychiatric: Orientation: alert and oriented x 3 Affect: euthymic affect Results & Data Vital Signs (Past 12 Hours) Vital Signs Temp Pulse Pulse Resp BP BP Pulse Ox 10/30/22 10:00 92 H 23 96 10/30/22 10:00 129/70 10/30/22 09:30 85 17 97 10/30/22 09:50 98 H 10/30/22 09:00 86 17 10/30/22 09:00 134/72 10/30/22 08:45 89 20 10/30/22 09:14 36.6 C 10/30/22 07:14 92 H 18 122/64 99 10/30/22 07:08 122/64 10/30/22 07:08 87 22 100 10/30/22 07:00 78 10/30/22 06:41 100 10/30/22 06:41 128/78 10/30/22 06:30 98 10/30/22 06:00 91 H 13 99 10/30/22 05:00 90 24 96 10/30/22 04:30 100 H 23 98 10/30/22 04:00 96 H 19 95 10/30/22 03:56 93 H 18 98 10/30/22 03:55 96 H 10/30/22 03:58 36.4 C L 93 H 18 127/70 100 10/30/22 03:58 36.4 C L 93 H 15 127/70 100 O2 Del Method 10/30/22 10:00 Room Air 10/30/22 10:00 10/30/22 09:30 Room Air 10/30/22 09:50 10/30/22 09:00 10/30/22 09:00 10/30/22 08:45 10/30/22 09:14 10/30/22 07:14 Room Air 10/30/22 07:08 10/30/22 07:08 10/30/22 07:00 10/30/22 06:41 10/30/22 06:41 10/30/22 06:30 10/30/22 06:00 10/30/22 05:00 10/30/22 04:30 Room Air 10/30/22 04:00 Room Air 10/30/22 03:56 Room Air 10/30/22 03:55 10/30/22 03:58 Room Air 10/30/22 03:58 Room Air PG Care Time/CCT Total # of Minutes Spent Total Time Spent with Patient: Total time spent is greater than 50% in coordination of care (as documented) at patient's floor/unit and/or counseling patient: Coding Level of Care Code 36634 IN/OBS CONSULT LVL 5,80M Diagnoses KENDRICK (acute kidney injury) N17.9 Hydronephrosis N13.30 Generalized weakness R53.1 Hyperkalemia, diminished renal excretion E87.5 Hyponatremia E87.1 S/P ureteral stent placement Z96.0 Fall W19.XXXA Bladder tumor D49.4
[2022-10-30 11:34] LABS: Albumin Level 3.5 gm/dl (3.4-5.0); Calcium 9.2 mg/dl (8.6-10.3); Creatinine Clr Calc Pharmacy 6.2 ml/min; Est GFR (African American) 6.1 ml/min; Est GFR (Non-African American) 5.3 ml/min; Phosphorus 9.5 mg/dl (2.5-4.9); Potassium 5.3 mmol/L (3.5-5.1)
[2022-10-30 11:52] LABS: Creatinine Urine Random 108.2 mg/dl
[2022-10-30 12:14] LABS: BUN Creatinine Ratio 21.5 (10-20)
--- NOTE | 2022-10-30 12:22 | Electrocardiogram Report ---
Test Reason : Blood Pressure : / mmHG Vent. Rate : 099 BPM Atrial Rate : 099 BPM P-R Int : 142 ms QRS Dur : 096 ms QT Int : 346 ms P-R-T Axes : 072 061 080 degrees QTc Int : 444 ms Normal sinus rhythm with sinus arrhythmia Nonspecific ST abnormality Abnormal ECG When compared with ECG of 14-SEP-2022 10:24, Vent. rate has increased BY 42 BPM Confirmed by Hola Easley ([id number]) on 10/30/2022 12:22:04 PM Referred By: REFERRED SELF Confirmed By:Hola Easley
--- NOTE | 2022-10-30 12:29 | Hospitalist Progress Note ---
Date of Service October 30, 2022 Assessment & Plan (1) Acute kidney injury: Plan: severe FeNa >2% c/w intrinsic renal disease or obstructive process or combination of both chronic diuretic use (thiazide) could be skewing the results ARIEL inhibitor use may also have contributed to acute kidney injury -- lisinopril is on hold thus far he is responding to volume repletion with slowly improving BUN and Cr values CT a/p reviewed & noted - despite b/l ureteral stents in place he continues with b/l hydronephrosis appreciate urology consultation appreciate nephrology consultation cont current IVF (sodium bicarbonate infusion) serial BMPs if creatinine fails to correct could potentially need percutaneous nephrostomy tubes in light of persistent hydronephrosis (2) Hyperkalemia: Plan: 2nd #1 patiromer x 1 dose now cont sodium bicarbonate infusion serial BMPs telemetry status (3) Hyponatremia: Plan: 2nd to #1 should correct as renal function improves serial BMPs (4) Diabetes mellitus, type 2: Plan: resolved a1c 5.6% in 08/2022 stop metformin (5) CAD (coronary artery disease): Plan: noted no evidence of recent ACS asa/plavix on hold but resume tomorrow if no procedure is planned (perc nephro tubes, etc) (6) Bladder cancer: Plan: s/p TURBT x 2 per records as well as bilateral ureteral stents with last exchange on 09/24/22 appreciate urology assistance (7) S/P ureteral stent placement: Plan: last exchange 09/24/22 despite what appears to be good positioning on CT imaging of the stents he continues with hydronephrosis b/l need for percutaneous nephrostomy tubes?? defer that decision to urology & nephrology (8) Complicated urinary tract infection: Plan: budding yeast on microscopy from u/a caspofungin x 1 today repeat dosing tomorrow if culture is indeed growing yeast cont cefepime for typical bacterial pathogens f/u on cultures tomorrow Admission and Anticipated Discharge Date Admission Date: October 30, 2022 Subjective patient resting comfortably in bed was awake, able to answer questions main complaint is weakness with poor PO intake this has been present for several weeks denies any dyspnea Physical Exam Physical Exam: gen - thin, NAD, pleasant mouth - MM dry neck - no JVD heart - RRR, s1 s2 lungs - CTA b/l abd - soft NT ND BS+ ext - no edema, pulses 2+ b/l Results & Data Results & Data Vital Signs (Past 12 Hours) Vital Signs Temp Pulse Pulse Resp BP BP Pulse Ox 10/30/22 10:00 92 H 23 96 10/30/22 10:00 129/70 10/30/22 09:30 85 17 97 10/30/22 09:50 98 H 10/30/22 09:00 86 17 10/30/22 09:00 134/72 10/30/22 08:45 89 20 10/30/22 09:14 36.6 C 10/30/22 07:14 92 H 18 122/64 99 10/30/22 07:08 122/64 10/30/22 07:08 87 22 100 10/30/22 07:00 78 10/30/22 06:41 100 10/30/22 06:41 128/78 10/30/22 06:30 98 10/30/22 06:00 91 H 13 99 10/30/22 05:00 90 24 96 10/30/22 04:30 100 H 23 98 10/30/22 04:00 96 H 19 95 10/30/22 03:56 93 H 18 98 10/30/22 03:55 96 H 10/30/22 03:58 36.4 C L 93 H 18 127/70 100 10/30/22 03:58 36.4 C L 93 H 15 127/70 100 O2 Del Method 10/30/22 10:00 Room Air 10/30/22 10:00 10/30/22 09:30 Room Air 10/30/22 09:50 10/30/22 09:00 10/30/22 09:00 10/30/22 08:45 10/30/22 09:14 10/30/22 07:14 Room Air 10/30/22 07:08 10/30/22 07:08 10/30/22 07:00 10/30/22 06:41 10/30/22 06:41 10/30/22 06:30 10/30/22 06:00 10/30/22 05:00 10/30/22 04:30 Room Air 10/30/22 04:00 Room Air 10/30/22 03:56 Room Air 10/30/22 03:55 10/30/22 03:58 Room Air 10/30/22 03:58 Room Air Laboratory Results Laboratory Results - last 24 hr 10/30/22 10/30/22 10/30/22 04:09 04:09 04:09 WBC 11.71 H RBC 4.79 Hgb 13.3 L POC Hgb Hct 39.6 L POC Hct MCV 82.7 MCH 27.8 MCHC 33.6 RDW Std Deviation 42.0 RDW Coeff of Elsi 13.9 Plt Count 266 MPV 11.4 Immature Gran % (Auto) 0.4 Neut % (Auto) 78.9 Lymph % (Auto) 13.8 Nicholas % (Auto) 6.1 Eos % (Auto) 0.3 Baso % (Auto) 0.5 Neut # (Auto) 9.22 H Lymph # (Auto) 1.62 Nicholas # (Auto) 0.72 H Eos # (Auto) 0.04 Baso # (Auto) 0.06 Immature Gran # (Auto) 0.05 POC pH POC pCO2 POC pO2 POC HCO3 POC Total CO2 POC Base Excess POC ABG O2 Sat POC Sodium Sodium 127 L POC Potassium Potassium 6.1 H* Chloride 93 L Carbon Dioxide 13 L Anion Gap 21 H BUN 199 H Creatinine 10.44 H* Est Cr Clr Drug Dosing 5.3 Est GFR ( Amer) 5.0 Est GFR (Non-Af Amer) 4.3 BUN/Creatinine Ratio 19.1 Glucose 91 POC Glucose Calcium 9.6 Phosphorus 11.5 H Magnesium 3.2 H Total Bilirubin 0.4 AST 14 ALT 11 Alkaline Phosphatase 89 Total Protein 8.1 Albumin 3.7 Globulin 4.4 H Albumin/Globulin Ratio 0.8 L Lipase 204 H TSH 0.936 Urine Color Urine Appearance Urine pH Ur Specific [place] Urine Protein Urine Glucose (UA) Urine Ketones Urine Blood Urine Nitrite Urine Bilirubin Urine Urobilinogen Ur Leukocyte Esterase Urine WBC (Auto) Urine RBC (Auto) U Hyaline Cast (Auto) U Epithel Cells (Auto) Urine Bacteria (Auto) Urine Yeast Ur Random Creatinine Ur Random Sodium Nasal Screen MRSA (PCR) SARS-CoV-2, RNA, NAAT 10/30/22 10/30/22 10/30/22 05:53 06:07 06:40 WBC RBC Hgb POC Hgb 12.2 L Hct POC Hct 36 L MCV MCH MCHC RDW Std Deviation RDW Coeff of Elsi Plt Count MPV Immature Gran % (Auto) Neut % (Auto) Lymph % (Auto) Nicholas % (Auto) Eos % (Auto) Baso % (Auto) Neut # (Auto) Lymph # (Auto) Nicholas # (Auto) Eos # (Auto) Baso # (Auto) Immature Gran # (Auto) POC pH 7.37 POC pCO2 20 L POC pO2 104 H POC HCO3 12 L POC Total CO2 12 L POC Base Excess -14.0 L POC ABG O2 Sat 98.0 H POC Sodium 127 L Sodium POC Potassium 6.1 H* Potassium Chloride Carbon Dioxide Anion Gap BUN Creatinine Est Cr Clr Drug Dosing Est GFR ( Amer) Est GFR (Non-Af Amer) BUN/Creatinine Ratio Glucose POC Glucose Calcium Phosphorus Magnesium Total Bilirubin AST ALT Alkaline Phosphatase Total Protein Albumin Globulin Albumin/Globulin Ratio Lipase TSH Urine Color Yellow Urine Appearance Turbid A Urine pH 5.0 Ur Specific [place] 1.014 Urine Protein 2+ H Urine Glucose (UA) Negative Urine Ketones Trace H Urine Blood 3+ H Urine Nitrite Negative Urine Bilirubin Negative Urine Urobilinogen Negative Ur Leukocyte Esterase 3+ H Urine WBC (Auto) >30 H Urine RBC (Auto) 5-10 H U Hyaline Cast (Auto) 1-5 U Epithel Cells (Auto) >30 H Urine Bacteria (Auto) Negative Urine Yeast Budding A Ur Random Creatinine Ur Random Sodium Nasal Screen MRSA (PCR) SARS-CoV-2, RNA, NAAT NEGATIVE 10/30/22 10/30/22 10/30/22 09:28 10:37 11:17 WBC RBC Hgb POC Hgb Hct POC Hct MCV MCH MCHC RDW Std Deviation RDW Coeff of Elsi Plt Count MPV Immature Gran % (Auto) Neut % (Auto) Lymph % (Auto) Nicholas % (Auto) Eos % (Auto) Baso % (Auto) Neut # (Auto) Lymph # (Auto) Nicholas # (Auto) Eos # (Auto) Baso # (Auto) Immature Gran # (Auto) POC pH POC pCO2 POC pO2 POC HCO3 POC Total CO2 POC Base Excess POC ABG O2 Sat POC Sodium Sodium 131 L POC Potassium Potassium 5.3 H Chloride 96 L Carbon Dioxide 18 L Anion Gap 17 H BUN 190 H Creatinine 8.83 H* D Est Cr Clr Drug Dosing 6.2 Est GFR ( Amer) 6.1 Est GFR (Non-Af Amer) 5.3 BUN/Creatinine Ratio 21.5 H Glucose 58 L POC Glucose 93 79 Calcium 9.2 Phosphorus 9.5 H Magnesium Total Bilirubin AST ALT Alkaline Phosphatase Total Protein Albumin 3.5 Globulin Albumin/Globulin Ratio Lipase TSH Urine Color Urine Appearance Urine pH Ur Specific [place] Urine Protein Urine Glucose (UA) Urine Ketones Urine Blood Urine Nitrite Urine Bilirubin Urine Urobilinogen Ur Leukocyte Esterase Urine WBC (Auto) Urine RBC (Auto) U Hyaline Cast (Auto) U Epithel Cells (Auto) Urine Bacteria (Auto) Urine Yeast Ur Random Creatinine Ur Random Sodium Nasal Screen MRSA (PCR) SARS-CoV-2, RNA, NAAT 10/30/22 10/30/22 10/30/22 16:26 19:46 21:36 WBC RBC Hgb POC Hgb Hct POC Hct MCV MCH MCHC RDW Std Deviation RDW Coeff of Elsi Plt Count MPV Immature Gran % (Auto) Neut % (Auto) Lymph % (Auto) Nicholas % (Auto) Eos % (Auto) Baso % (Auto) Neut # (Auto) Lymph # (Auto) Nicholas # (Auto) Eos # (Auto) Baso # (Auto) Immature Gran # (Auto) POC pH POC pCO2 POC pO2 POC HCO3 POC Total CO2 POC Base Excess POC ABG O2 Sat POC Sodium Sodium 133 L POC Potassium Potassium 5.6 H Chloride 95 L Carbon Dioxide 23 Anion Gap 15 H BUN 169 H D Creatinine 7.04 H* D Est Cr Clr Drug Dosing 7.8 Est GFR ( Amer) 8.0 Est GFR (Non-Af Amer) 6.9 BUN/Creatinine Ratio 24.0 H Glucose 90 POC Glucose 115 H 104 H Calcium 9.1 Phosphorus Magnesium Total Bilirubin AST ALT Alkaline Phosphatase Total Protein Albumin Globulin Albumin/Globulin Ratio Lipase TSH Urine Color Urine Appearance Urine pH Ur Specific [place] Urine Protein Urine Glucose (UA) Urine Ketones Urine Blood Urine Nitrite Urine Bilirubin Urine Urobilinogen Ur Leukocyte Esterase Urine WBC (Auto) Urine RBC (Auto) U Hyaline Cast (Auto) U Epithel Cells (Auto) Urine Bacteria (Auto) Urine Yeast Ur Random Creatinine Ur Random Sodium Nasal Screen MRSA (PCR) SARS-CoV-2, RNA, NAAT 10/30/22 10/30/22 Unknown Unknown WBC RBC Hgb POC Hgb Hct POC Hct MCV MCH MCHC RDW Std Deviation RDW Coeff of Elsi Plt Count MPV Immature Gran % (Auto) Neut % (Auto) Lymph % (Auto) Nicholas % (Auto) Eos % (Auto) Baso % (Auto) Neut # (Auto) Lymph # (Auto) Nicholas # (Auto) Eos # (Auto) Baso # (Auto) Immature Gran # (Auto) POC pH POC pCO2 POC pO2 POC HCO3 POC Total CO2 POC Base Excess POC ABG O2 Sat POC Sodium Sodium POC Potassium Potassium Chloride Carbon Dioxide Anion Gap BUN Creatinine Est Cr Clr Drug Dosing Est GFR ( Amer) Est GFR (Non-Af Amer) BUN/Creatinine Ratio Glucose POC Glucose Calcium Phosphorus Magnesium Total Bilirubin AST ALT Alkaline Phosphatase Total Protein Albumin Globulin Albumin/Globulin Ratio Lipase TSH Urine Color Urine Appearance Urine pH Ur Specific [place] Urine Protein Urine Glucose (UA) Urine Ketones Urine Blood Urine Nitrite Urine Bilirubin Urine Urobilinogen Ur Leukocyte Esterase Urine WBC (Auto) Urine RBC (Auto) U Hyaline Cast (Auto) U Epithel Cells (Auto) Urine Bacteria (Auto) Urine Yeast Ur Random Creatinine 108.2 Ur Random Sodium 36 Nasal Screen MRSA (PCR) Negative SARS-CoV-2, RNA, NAAT PG Care Time/CCT Total # of Minutes Spent Total Time Spent with Patient: Total time spent is greater than 50% in coordination of care (as documented) at patient's floor/unit and/or counseling patient: Coding Level of Care Code None Diagnoses Acute kidney injury N17.9 Hyperkalemia E87.5 Hyponatremia E87.1 Diabetes mellitus, type 2 E11.9 CAD (coronary artery disease) I25.10 Bladder cancer C67.9 S/P ureteral stent placement Z96.0 Complicated urinary tract infection N39.0
[2022-10-30 20:53] LABS: Calcium 9.1 mg/dl (8.6-10.3); Creatinine Clr Calc Pharmacy 7.8 ml/min; Est GFR (Non-African American) 6.9 ml/min; Potassium 5.6 mmol/L (3.5-5.1)
[2022-10-31] MEDS: SODIUM BICARBONATE 8.4% 150 MEQ in WATER, STERILE 1,000 ML IV SCH ×2 (00:03→07:29)
[2022-10-31 01:16] LABS: Adenovirus F 40/41 PCR Not Detected (NotDetected); Astrovirus PCR Not Detected (NotDetected); Campylobacter PCR Not Detected (NotDetected); Cryptosporidium PCR Not Detected (NotDetected); Cyclospora cayetanensis PCR Not Detected (NotDetected); Entamoeba histolytica PCR Not Detected (NotDetected); Enteroaggregative E.coli(EAEC) Not Detected (NotDetected); Enteropathogenic E.coli (EPEC) Not Detected (NotDetected); Enterotoxigenic E.coli (ETEC) Not Detected (NotDetected); Giardia lamblia PCR Not Detected (NotDetected); Norovirus GI/GII PCR Not Detected (NotDetected); Plesiomonas shigelloides PCR Not Detected (NotDetected); Rotavirus A PCR Not Detected (NotDetected); Salmonella PCR Not Detected (NotDetected); Sapovirus PCR Not Detected (NotDetected); Shiga-like Toxin E.coli (STEC) Not Detected (NotDetected); Shigella/Enteroinvasive E.coli Not Detected (NotDetected); Vibrio cholerae PCR Not Detected (NotDetected); Vibrio species PCR Not Detected (NotDetected); Yersinia enterocolitica PCR Not Detected (NotDetected)
[2022-10-31] MEDS ORDERED: ACETAMINOPHEN 325 MG TAB PO PRN (03:29)
[2022-10-31 05:18] LABS: Basophils # (auto) 0.03 K/uL (0-0.2); Basophils % (auto) 0.4 %; Eosinophils # (auto) 0.03 K/uL (0-0.50); Eosinophils % (auto) 0.4 %; Hematocrit (blood only) 31.3 % (42.0-52.0); Hemoglobin 10.7 g/dl (14.0-18.0); Immature Granulocytes # (auto) 0.02 K/uL (0.01-0.20); Immature Granulocytes % (auto) 0.3 %; Lymphocytes # (auto) 0.76 K/uL (1.2-3.4); Lymphocytes % (auto) 10.1 %; Mean Corpuscular Hemoglobin 27.4 pg (25.0-34.0); Mean Corpuscular Hgb Conc 34.2 g/dL (32.0-36.0); Mean Corpuscular Volume 80.1 fL (80.0-100.0); Mean Platelet Volume 10.9 fL (9.4-12.4); Monocytes # (auto) 0.37 K/uL (0.11-0.59); Monocytes % (auto) 4.9 %; Neutrophils # (auto) 6.34 K/uL (1.40-6.50); Neutrophils % (auto) 83.9 %; Platelet Count 163 K/uL (130-400); RDW Coefficient of Variation 13.8 % (11.5-14.5); RDW Standard Deviation 39.5 fL (36.4-46.3); Red Blood Count 3.91 M/uL (4.70-6.10); White Blood Count 7.55 K/ul (4.8-10.8)
[2022-10-31 05:37] LABS: Albumin Globulin Ratio 0.8 (0.9-2); Albumin Level 2.7 gm/dl (3.4-5.0); Bilirubin,Total 0.3 mg/dl (0.2-1.0); Calcium 8.2 mg/dl (8.6-10.3); Creatinine Clr Calc Pharmacy 9.3 ml/min; Est GFR (African American) 9.9 ml/min; Est GFR (Non-African American) 8.5 ml/min; Globulin 3.3 gm/dl (2.5-4.0); Potassium 4.2 mmol/L (3.5-5.1)
[2022-10-31 05:49] LABS: BUN Creatinine Ratio 26.6 (10-20)
[2022-10-31 07:03] LABS: Estimated Average Glucose 126 mg/dl
[2022-10-31] MEDS: CEFEPIME 1,000 MG in SYRINGE 0 ML IV SCH (09:09)
--- NOTE | 2022-10-31 09:48 | Urology Progress Note ---
Date of Service October 31, 2022 Assessment & Plan (1) S/P ureteral stent placement: (2) Bladder cancer: (3) ARF (acute renal failure): Plan: 77-year-old male with history of bladder cancer status post resection x2 and bilateral ureteral stents admitted for generalized weakness, acute renal failure, and hyperkalemia. Pt is afebrile and hemodynamically stable. Labs reviewed- creatinine trending down (5.93), Na 136, K 4.2, no leukocytosis, hemoglobin 10.7. Continue to trend labs. Urine culture pending, blood cultures no growth x 24 hours. He is on IV Cefepime and Caspofungin currently. Continue broad spectrum antibiotics and narrow per sensitivity data when available. He is voiding spontaneously - recommend monitor urine output and bladder scan prn. Will try to avoid Kennedy catheter currently as this may cause more irritation. Appreciate nephrology recommendations. Creatinine downtrending and electrolytes improving. There is some progression of b/l hydro noted since previous imaging. Stents are in good position and recently exchanged - no current indication to exchange stents at this time. If creatinine is not improving with IV fluids and supportive measures, he may require percutaneous nephrostomy tubes at a facility with IR. Discussed this with patient. Recommend supportive care and trend labs. will follow. Admission and Anticipated Discharge Date Admission Date: October 30, 2022 Supervising Physician Co-Signing Physician Notes Discussed patient with JORGE L. Agree with plan. Subjective No acute issues overnight. Patient denies abdominal, suprapubic or flank pain. He is voiding spontaneously. Notes some urgency with bowels. Denies nausea, vomiting, fever or chills. Review of Systems Constitutional: as per Subjective / HPI Gastrointestinal: as per Subjective / HPI Genitourinary: + as per Subjective / HPI Physical Exam Constitutional: + thin; no acute distress Respiratory: normal respiratory effort; no respiratory distress and no labored breathing Cardiovascular: Extremities: no pedal edema Gastrointestinal (Abdomen): Inspection/Auscultation: abdomen normal to insp ection; abdomen not distended Musculoskeletal: Head/Neck/Chest: normocephalic Skin: no visible rashes to exposed skin Neurologic: moves all extremities and awake Psychiatric: Orientation: alert and oriented x 3 Results & Data Vital Signs (Past 12 Hours) Vital Signs Temp Pulse Pulse Resp BP BP Pulse Ox 10/31/22 08:23 36.7 C 92 H 18 136/76 97 10/31/22 06:05 99 H 17 97 10/31/22 06:05 79/42 L 10/31/22 06:02 98 H 19 95 10/31/22 06:00 97 H 18 95 10/31/22 04:00 93 H 0 L 10/31/22 02:00 93 H 19 95 10/31/22 02:00 94/53 L 10/31/22 01:02 101 H 19 93 10/31/22 01:02 87/49 L 10/31/22 01:00 101 H 16 94 10/31/22 06:16 36.8 C 96 H 14 90/56 L 94 10/31/22 00:00 98 H 10/31/22 00:00 100 H 19 94 10/31/22 00:00 131/68 10/30/22 23:00 99 H 18 10/30/22 23:00 93/55 L 10/30/22 22:00 100 H 19 96 10/30/22 22:00 110/61 O2 Del Method 10/31/22 08:23 Room Air 10/31/22 06:05 10/31/22 06:05 10/31/22 06:02 10/31/22 06:00 10/31/22 04:00 10/31/22 02:00 10/31/22 02:00 10/31/22 01:02 10/31/22 01:02 10/31/22 01:00 10/31/22 06:16 Room Air 10/31/22 00:00 10/31/22 00:00 10/31/22 00:00 10/30/22 23:00 10/30/22 23:00 10/30/22 22:00 10/30/22 22:00 PG Care Time/CCT Total # of Minutes Spent Total Time Spent with Patient: Total time spent is greater than 50% in coordination of care (as documented) at patient's floor/unit and/or counseling patient: Coding Level of Care Code 71917 SUB INP/OBS CARE 1/25MIN Diagnoses S/P ureteral stent placement Z96.0 Bladder cancer C67.9 ARF (acute renal failure) N17.9
[2022-10-31] MEDS: INSULIN ASPART PER UNIT CHARGE SC SCH ×4 (10:02→22:05)
[2022-10-31] MEDS: SODIUM CHLORIDE 0.9% 1000ML 1,000 ML IV SCH ×3 (10:04→22:32)
[2022-10-31] MEDS ORDERED: CASPOFUNGIN 50 MG in SODIUM CHLORIDE 0.9% 250 ML IV SCH (11:00)
--- NOTE | 2022-10-31 15:09 | Nephrology Progress Note ---
Date of Service October 31, 2022 Assessment & Plan (1) KENDRICK (acute kidney injury): (2) Hydronephrosis: (3) Generalized weakness: (4) Hyperkalemia, diminished renal excretion: (5) Hyponatremia: (6) S/P ureteral stent placement: (7) Fall: (8) Bladder tumor: Plan 77-year-old gentleman with baseline decent renal function, creatinine 1.2, recent diagnosis of bladder cancer status post TURBT and bilateral ureteral stent, admitted with few weeks history of generalized weakness poor p.o. intake and noted to have KENDRICK, creatinine 10.4, BUN 199 with multiple electrolyte abnormality including hyperkalemia, hyponatremia and imaging study showing moderate bilateral hydronephrosis which is worse than prior imaging. Renal function rapidly improved, electrolyte abnormality and metabolic acidosis resolved. -- Discontinue IV fluid, encourage p.o. intake. expect renal function to continue to improve. -- Monitor renal function electrolyte daily -- dose medications for GFR less than 10, avoid all nephrotoxic medications. Will follow. Admission and Anticipated Discharge Date Admission Date: October 30, 2022 Reid Ricci was seen this morning, overall he feels well, denies any symptom. No shortness of breath or chest pain. Blood pressure acceptable. Renal function rapidly improved, electrolyte abnormality resolved. Review of Systems Review of Systems: Detailed review of system was done and pertinent positives and negatives were mentioned above. Physical Exam Constitutional: + ill appearing Gastrointestinal (Abdomen): Inspection/Auscultation: abdomen normal to inspection and normal bowel sounds Percussion/Palpation: abdomen soft; abdomen nontender Results & Data Vital Signs (Past 12 Hours) Vital Signs Temp Pulse Pulse Resp BP BP Pulse Ox 10/31/22 12:32 36.8 C 103 H 18 112/64 94 10/31/22 08:00 89 10/31/22 08:23 36.7 C 92 H 18 136/76 97 10/31/22 06:05 99 H 17 97 10/31/22 06:05 79/42 L 10/31/22 06:02 98 H 19 95 10/31/22 06:00 97 H 18 95 10/31/22 04:00 93 H 0 L 10/31/22 06:16 36.8 C 96 H 14 90/56 L 94 O2 Del Method 10/31/22 12:32 Room Air 10/31/22 08:00 06/21/23 08:23 Room Air 10/31/22 06:05 10/31/22 06:05 10/31/22 06:02 10/31/22 06:00 10/31/22 04:00 10/31/22 06:16 Room Air PG Care Time/CCT Total # of Minutes Spent Total Time Spent with Patient: Total time spent is greater than 50% in coordination of care (as documented) at patient's floor/unit and/or counseling patient: Coding Level of Care Code 70548 SUB INP/OBS CARE 2/35MIN Diagnoses KENDRICK (acute kidney injury) N17.9 Hydronephrosis N13.30 Generalized weakness R53.1 Hyperkalemia, diminished renal excretion E87.5 Hyponatremia E87.1 S/P ureteral stent placement Z96.0 Fall W19.XXXA Bladder tumor D49.4
[2022-10-31] MEDS ORDERED: 0.2 MICRON FILTER SET 1 EACH IV STA (19:39)
[2022-10-31] MEDS ORDERED: STAT IV Infusion **Titration per Protocol STA (19:39)
[2022-10-31] MEDS ORDERED: AMIODARONE IV BOLUS & DRIP IV STA (19:39)
[2022-10-31] MEDS ORDERED: AMIODARONE / D5W 150 MG/100 ML BAG IV STA (19:41)
[2022-10-31] MEDS ORDERED: AMIODARONE 150MG / 100ML D5W IV ONE (19:43)
[2022-10-31] MEDS ORDERED: AMIODARONE / D5W 360 MG/200 ML BAG IV ONE (19:51)
[2022-10-31] MEDS: HEPARIN SOD 5,000 UNIT/0.5 ML VIAL SQ SCH (19:57)
--- NOTE | 2022-10-31 20:11 | Hospitalist Progress Note ---
Date of Service October 31, 2022 Assessment & Plan (1) Acute kidney injury: Plan: severe but IMPROVING FeNa >2% c/w intrinsic renal disease or obstructive process or combination of both chronic diuretic use (thiazide) could be skewing the results ARIEL inhibitor use may also have contributed to acute kidney injury -- lisinopril is on hold CT a/p - despite b/l ureteral stents in place he continues with b/l hydronephrosis appreciate urology consultation appreciate nephrology consultation stop sodium bicarbonate infusion change to NS at 75cc/hr BMP am at this point, since renal function is improving, percutaneous nephrostomy tubes hopefully can be avoided despite the persistent hydronephrosis (2) Hyperkalemia: Plan: 2nd #1 resolved stop bicarbonate infusion (3) Hyponatremia: Plan: 2nd to #1 improved/resolved (4) Diabetes mellitus, type 2: Plan: resolved a1c 5.6% in 08/2022 a1c 6% this admission metformin - would stop completely (5) CAD (coronary artery disease): Plan: noted follows with [facility] no evidence of recent ACS asa/plavix on hold - resume tomorrow (6) Bladder cancer: Plan: s/p TURBT x 2 per records as well as bilateral ureteral stents with last exchange on 09/24/22 appreciate urology assistance (7) S/P ureteral stent placement: Plan: last exchange 09/24/22 despite what appears to be good positioning on CT imaging of the stents he continues with hydronephrosis b/l need for percutaneous nephrostomy tubes?? defer that decision to urology & nephrology but hopefully they can be avoided (8) Complicated urinary tract infection: Plan: budding yeast on microscopy from u/a urine cx growing yeast cont caspofungin cont cefepime for typical bacterial pathogens but ultimately can d/c this if no bacterium grows f/u on cultures (9) Urinary incontinence: Plan: nocturnal will d/w urology now with condom cath in place check a bladder scan to ensure he is not retaining (10) Hypertension: Plan: holding amlodipine holding chlorthalidone holding lisinopril holding metoprolol BPs have been labile, but today's BPs have been low-normal cont to hold above meds and reinstitute as needed weight loss from bladder ca likely the reason he is no longer requiring all of the above Plan DVT proph - add heparin 5000 BID in am if renal function continues to improve PT, OT Admission and Anticipated Discharge Date Admission Date: October 30, 2022 Subjective no events overnight he is feeling better overall appetite improved he mentions that for about 1 month he has had urinary incontinence during sleep but not while awake this is a brand new problem for him he is willing to go to rehab post-discharge tele overnight wnl Review of Systems Review of Systems: gen - no fevers cv - no chest pain, no orthopnea pulm - no dyspnea - some dysuria Physical Exam Physical Exam: gen - thin, NAD, pleasant mouth - MMM today neck - no JVD heart - RRR, s1 s2, no murmur lungs - CTA b/l abd - soft NT ND BS+ - condom catheter in place ext - no edema, pulses 2+ b/l psych - a/o x 3 Results & Data Results & Data Vital Signs (Past 12 Hours) Vital Signs Temp Pulse Pulse Resp BP Pulse Ox O2 Del Method 10/31/22 19:35 179 H 111/68 10/31/22 19:31 183 H 74/44 L 10/31/22 19:27 37.3 C 185 H 18 93/53 L 97 Room Air 10/31/22 19:20 189 H 79/55 L 10/31/22 16:00 90 10/31/22 16:22 36.8 C 92 H 18 132/74 97 Room Air 10/31/22 12:32 36.8 C 103 H 18 112/64 94 Room Air 10/31/22 08:23 36.7 C 92 H 18 136/76 97 Room Air Laboratory Results Laboratory Results - last 24 hr 10/30/22 10/30/22 10/30/22 19:46 19:55 19:55 WBC RBC Hgb Hct MCV MCH MCHC RDW Std Deviation RDW Coeff of Elsi Plt Count MPV Immature Gran % (Auto) Neut % (Auto) Lymph % (Auto) [place] % (Auto) Eos % (Auto) Baso % (Auto) Neut # (Auto) Lymph # (Auto) [place] # (Auto) Eos # (Auto) Baso # (Auto) Immature Gran # (Auto) Sodium 133 L Potassium 5.6 H Chloride 95 L Carbon Dioxide 23 Anion Gap 15 H BUN 169 H D Creatinine 7.04 H* D Est Cr Clr Drug Dosing 7.8 Est GFR ( Amer) 8.0 Est GFR (Non-Af Amer) 6.9 BUN/Creatinine Ratio 24.0 H Glucose 90 POC Glucose Estimat Average Glucose Hemoglobin A1c Calcium 9.1 Total Bilirubin AST ALT Alkaline Phosphatase Total Protein Albumin Globulin Albumin/Globulin Ratio Stl C. cayetanensis PCR Not Detected Stool Rotavirus A PCR Not Detected Stl Adenov F 40/41 PCR Not Detected Stool Astrovirus (PCR) Not Detected Stool Campylobacter PCR Not Detected Stl C. diff Tox B Gene Negative Cdiff Gene Stool Cryptosporidium PCR Not Detected Stl E.coli Shiga Tox PCR Not Detected Stl Enterotoxigenic E PCR Not Detected Stool EPEC (PCR) Not Detected Stool EAEC (PCR) Not Detected Stl E. histolytica PCR Not Detected Stool Giardia Lamblia PCR Not Detected Stool Salmonella PCR Not Detected Stool Sapovirus (PCR) Not Detected Stl P. shigelloides PCR Not Detected Stl Shigella/EIEC PCR Not Detected St Y.enterocolitica PCR Not Detected Stool Vibrio (PCR) Not Detected Stl Vibrio cholerae PCR Not Detected Stl Norovirus GI/GII PCR Not Detected 10/30/22 10/31/22 10/31/22 21:36 04:54 04:54 WBC 7.55 RBC 3.91 L Hgb 10.7 L Hct 31.3 L MCV 80.1 MCH 27.4 MCHC 34.2 RDW Std Deviation 39.5 RDW Coeff of Elsi 13.8 Plt Count 163 MPV 10.9 Immature Gran % (Auto) 0.3 Neut % (Auto) 83.9 Lymph % (Auto) 10.1 [place] % (Auto) 4.9 Eos % (Auto) 0.4 Baso % (Auto) 0.4 Neut # (Auto) 6.34 Lymph # (Auto) 0.76 L [place] # (Auto) 0.37 Eos # (Auto) 0.03 Baso # (Auto) 0.03 Immature Gran # (Auto) 0.02 Sodium 136 Potassium 4.2 D Chloride 94 L Carbon Dioxide 28 Anion Gap 14 H BUN 158 H Creatinine 5.93 H* D Est Cr Clr Drug Dosing 9.3 Est GFR ( Amer) 9.9 Est GFR (Non-Af Amer) 8.5 BUN/Creatinine Ratio 26.6 H Glucose 98 POC Glucose 104 H Estimat Average Glucose Hemoglobin A1c Calcium 8.2 L Total Bilirubin 0.3 AST 11 L ALT 9 Alkaline Phosphatase 63 Total Protein 6.0 D Albumin 2.7 L Globulin 3.3 Albumin/Globulin Ratio 0.8 L Stl C. cayetanensis PCR Stool Rotavirus A PCR Stl Adenov F PCR Stool Astrovirus (PCR) Stool Campylobacter PCR Stl C. diff Tox B Gene Stool Cryptosporidium PCR Stl E.coli Shiga Tox PCR Stl Enterotoxigenic E PCR Stool EPEC (PCR) Stool EAEC (PCR) Stl E. histolytica PCR Stool Giardia Lamblia PCR Stool Salmonella PCR Stool Sapovirus (PCR) Stl P. shigelloides PCR Stl Shigella/EIEC PCR St Y.enterocolitica PCR Stool Vibrio (PCR) Stl Vibrio cholerae PCR Stl Norovirus GI/GII PCR 10/31/22 10/31/22 10/31/22 04:54 07:50 11:49 WBC RBC Hgb Hct MCV MCH MCHC RDW Std Deviation RDW Coeff of Elsi Plt Count MPV Immature Gran % (Auto) Neut % (Auto) Lymph % (Auto) [place] % (Auto) Eos % (Auto) Baso % (Auto) Neut # (Auto) Lymph # (Auto) [place] # (Auto) Eos # (Auto) Baso # (Auto) Immature Gran # (Auto) Sodium Potassium Chloride Carbon Dioxide Anion Gap BUN Creatinine Est Cr Clr Drug Dosing Est GFR ( Amer) Est GFR (Non-Af Amer) BUN/Creatinine Ratio Glucose POC Glucose 132 H 156 H Estimat Average Glucose 126 Hemoglobin A1c 6.0 H Calcium Total Bilirubin AST ALT Alkaline Phosphatase Total Protein Albumin Globulin Albumin/Globulin Ratio Stl C. cayetanensis PCR Stool Rotavirus A PCR Stl Adenov F PCR Stool Astrovirus (PCR) Stool Campylobacter PCR Stl C. diff Tox B Gene Stool Cryptosporidium PCR Stl E.coli Shiga Tox PCR Stl Enterotoxigenic E PCR Stool EPEC (PCR) Stool EAEC (PCR) Stl E. histolytica PCR Stool Giardia Lamblia PCR Stool Salmonella PCR Stool Sapovirus (PCR) Stl P. shigelloides PCR Stl Shigella/EIEC PCR St Y.enterocolitica PCR Stool Vibrio (PCR) Stl Vibrio cholerae PCR Stl Norovirus GI/GII PCR 10/31/22 16:04 WBC RBC Hgb Hct MCV MCH MCHC RDW Std Deviation RDW Coeff of Elsi Plt Count MPV Immature Gran % (Auto) Neut % (Auto) Lymph % (Auto) [place] % (Auto) Eos % (Auto) Baso % (Auto) Neut # (Auto) Lymph # (Auto) [place] # (Auto) Eos # (Auto) Baso # (Auto) Immature Gran # (Auto) Sodium Potassium Chloride Carbon Dioxide Anion Gap BUN Creatinine Est Cr Clr Drug Dosing Est GFR ( Amer) Est GFR (Non-Af Amer) BUN/Creatinine Ratio Glucose POC Glucose 120 H Estimat Average Glucose Hemoglobin A1c Calcium Total Bilirubin AST ALT Alkaline Phosphatase Total Protein Albumin Globulin Albumin/Globulin Ratio Stl C. cayetanensis PCR Stool Rotavirus A PCR Stl Adenov F 40/41 PCR Stool Astrovirus (PCR) Stool Campylobacter PCR Stl C. diff Tox B Gene Stool Cryptosporidium PCR Stl E.coli Shiga Tox PCR Stl Enterotoxigenic E PCR Stool EPEC (PCR) Stool EAEC (PCR) Stl E. histolytica PCR Stool Giardia Lamblia PCR Stool Salmonella PCR Stool Sapovirus (PCR) Stl P. shigelloides PCR Stl Shigella/EIEC PCR St Y.enterocolitica PCR Stool Vibrio (PCR) Stl Vibrio cholerae PCR Stl Norovirus GI/GII PCR PG Care Time/CCT Total # of Minutes Spent Total Time Spent with Patient: Total time spent is greater than 50% in coordination of care (as documented) at patient's floor/unit and/or counseling patient: Coding Level of Care Code 11858 SUB INP/OBS CARE 2/35MIN Diagnoses Acute kidney injury N17.9 Hyperkalemia E87.5 Hyponatremia E87.1 Diabetes mellitus, type 2 E11.9 CAD (coronary artery disease) I25.10 Bladder cancer C67.9 S/P ureteral stent placement Z96.0 Complicated urinary tract infection N39.0 Urinary incontinence R32 Hypertension I10
--- NOTE | 2022-11-01 01:28 | Communication Note ---
Date of Service: November 01, 2022 Pt went into new onset afib around 1900. HRs sustaining in 170-180s and hypotensive 70-80s systolically. Very mild chest pain, nausea, sob. Asa/plavix still held from previous. Started SQ heparin for anticoagulation and amio bolus/drip. Converted around 2200. Drip d/c'd at 0100. Of note, pt states he has felt heart racing in the past but never diagnosed with afib. Resident Activity Tracking Resident Involvement: Resident Care Provided Care Provided: Adult Hospital Medicine
[2022-11-01] MEDS ORDERED: AMIODARONE / D5W 360 MG/200 ML BAG IV SCH (01:51)
[2022-11-01] MEDS: HEPARIN SOD 5,000 UNIT/0.5 ML VIAL SQ SCH ×2 (05:36→14:36)
[2022-11-01 06:26] LABS: Basophils # (auto) 0.04 K/uL (0-0.2); Basophils % (auto) 0.6 %; Eosinophils # (auto) 0.08 K/uL (0-0.50); Eosinophils % (auto) 1.2 %; Hemoglobin 11.7 g/dl (14.0-18.0); Immature Granulocytes # (auto) 0.02 K/uL (0.01-0.20); Immature Granulocytes % (auto) 0.3 %; Lymphocytes # (auto) 1.45 K/uL (1.2-3.4); Lymphocytes % (auto) 22.4 %; Mean Corpuscular Hemoglobin 27.2 pg (25.0-34.0); Mean Corpuscular Hgb Conc 32.5 g/dL (32.0-36.0); Mean Corpuscular Volume 83.7 fL (80.0-100.0); Mean Platelet Volume 11.7 fL (9.4-12.4); Monocytes # (auto) 0.36 K/uL (0.11-0.59); Monocytes % (auto) 5.6 %; Neutrophils # (auto) 4.53 K/uL (1.40-6.50); Neutrophils % (auto) 69.9 %; Platelet Count 142 K/uL (130-400); RDW Coefficient of Variation 14.3 % (11.5-14.5); White Blood Count 6.48 K/ul (4.8-10.8)
[2022-11-01 06:44] LABS: BUN Creatinine Ratio 29.8 (10-20); Creatinine Clr Calc Pharmacy 13.2 ml/min; Est GFR (Non-African American) 12.9 ml/min; Magnesium 2.6 mg/dl (1.7-2.4); Potassium 3.9 mmol/L (3.5-5.1)
[2022-11-01] MEDS: CEFEPIME 1,000 MG in SYRINGE 0 ML IV SCH (08:37)
[2022-11-01] MEDS: INSULIN ASPART PER UNIT CHARGE SC SCH ×4 (08:37→20:57)
--- NOTE | 2022-11-01 08:52 | Urology Progress Note ---
Date of Service November 01, 2022 Assessment & Plan (1) Bladder cancer: (2) ARF (acute renal failure): (3) S/P ureteral stent placement: Plan: 77-year-old male with history of bladder cancer status post resection x2 and bilateral ureteral stents admitted for generalized weakness, acute renal failure, and hyperkalemia. Pt is afebrile, episode of afib w/ RVR yesterday evening, converted around 2200. Stable vitals this am. Labs reviewed- creatinine trending down (4.20), no leukocytosis, hemoglobin 11.7. Continue to trend labs. Urine culture showing yeast. Blood cultures no growth x 24 hours. On IV Cefepime and Caspofungin currently. He is voiding spontaneously - recommend monitor urine output and bladder scan prn. Will try to avoid Kennedy catheter currently as this may cause more irritation. Nephrology following - appreciate recommendations. Creatinine continues to downtrend, electrolytes have improved. There is some progression of b/l hydro noted since previous imaging. Stents are in good position and recently exchanged - no current indication to exchange stents at this time. Recommend continue with supportive care and trend labs for now. If creatinine is not improving, he may require percutaneous nephrostomy tubes at a facility with IR. Discussed this with patient. will follow. Admission and Anticipated Discharge Date Admission Date: October 30, 2022 Subjective Patient seen and examined at bedside this morning. He is awake and sitting up in bed eating breakfast. Subjectively feeling well this morning. He had episode of A-fib with RVR yesterday evening, which converted prior to midnight. He denies abdominal, suprapubic or flank pain. He is voiding spontaneously. Notes some dysuria, no hematuria. Denies nausea, vomiting, fever or chills. Review of Systems Constitutional: as per Subjective / HPI Gastrointestinal: as per Subjective / HPI Genitourinary: + as per Subjective / HPI Physical Exam Constitutional: + thin; no acute distress Respiratory: normal respiratory effort; no respiratory distress and no labored breathing Gastrointestinal (Abdomen): Inspection/Auscultation: abdomen normal to inspection; abdomen not distended Musculoskeletal: Head/Neck/Chest: normocephalic Neurologic: moves all extremities and awake Psychiatric: Orientation: alert and oriented x 3 Results & Data Vital Signs (Past 12 Hours) Vital Signs Temp Pulse Pulse Resp BP Pulse Ox O2 Del Method 11/01/22 07:56 36.7 C 83 18 110/68 94 Room Air 11/01/22 03:30 36.3 C L 76 16 94/53 L 93 Room Air 11/01/22 01:40 73 100/71 97 Room Air 10/31/22 23:00 90 10/31/22 23:45 36.9 C 87 17 94/54 L 95 Room Air 10/31/22 23:00 86 98/54 L 10/31/22 22:34 92 H 87/46 L 95 Room Air 10/31/22 22:03 148 H 16 94/53 L 97 Room Air 10/31/22 21:31 148 H 87/47 L 10/31/22 21:05 152 H 93/47 L PG Care Time/CCT Total # of Minutes Spent Total Time Spent with Patient: Total time spent is greater than 50% in coordination of care (as documented) at patient's floor/unit and/or counseling patient: Coding Level of Care Code 76104 SUB INP/OBS CARE 06/06MIN Diagnoses Bladder cancer C67.9 ARF (acute renal failure) N17.9 S/P ureteral stent placement Z96.0
--- NOTE | 2022-11-01 09:41 | XCELERA ---
[id number]
[2022-11-01 10:44] LABS: Troponin I High Sensitivity 323.5 pg/ml (0-20)
--- NOTE | 2022-11-01 10:57 | Nephrology Progress Note ---
Date of Service November 01, 2022 Assessment & Plan (1) KENDRICK (acute kidney injury): (2) Hydronephrosis: (3) Generalized weakness: (4) Hyperkalemia, diminished renal excretion: (5) Hyponatremia: (6) S/P ureteral stent placement: (7) Fall: (8) Bladder tumor: Plan 77-year-old gentleman with baseline decent renal function, creatinine 1.2, recent diagnosis of bladder cancer status post TURBT and bilateral ureteral stent, admitted with few weeks history of generalized weakness poor p.o. intake and noted to have KENDRICK, creatinine 10.4, BUN 199 with multiple electrolyte abnormality including hyperkalemia, hyponatremia and imaging study showing moderate bilateral hydronephrosis which is worse than prior imaging. Renal function rapidly improved, electrolyte abnormality and metabolic acidosis resolved. blood pressure fair, volume status acceptable. -- encourage p.o. intake. expect renal function to continue to improve. -- Monitor renal function electrolyte daily -- dose medications for GFR less than 10, avoid all nephrotoxic medications. Will follow. Admission and Anticipated Discharge Date Admission Date: October 30, 2022 Reid Ricci was seen this morning, overall he feels well, denies any symptom except pain when he is voiding which has been an ongoing issue. No shortness of breath or chest pain. Blood pressure acceptable. Renal function rapidly improved, electrolyte abnormality resolved. Review of Systems Review of Systems: Detailed review of system was done and pertinent positives and negatives were mentioned above. Physical Exam Constitutional: WD/WN, vitals as above + thin; no acute distress Eyes: + anicteric sclerae Neck: normal visual inspection Respiratory: no respiratory distress Auscultation: lungs clear to auscultation bilaterally Cardiovascular: RRR, no murmur, no edema Skin: no rashes, warm and dry Neurologic: no focal motor deficits Psychiatric: Orientation: alert and oriented x 3 Affect: euthymic affect Results & Data Vital Signs (Past 12 Hours) Vital Signs Temp Pulse Pulse Resp BP Pulse Ox O2 Del Method 11/01/22 07:56 36.7 C 83 18 110/68 94 Room Air 11/01/22 03:30 36.3 C L 76 16 94/53 L 93 Room Air 11/01/22 01:40 73 100/71 97 Room Air 10/31/22 23:00 90 10/31/22 23:45 36.9 C 87 17 94/54 L 95 Room Air 10/31/22 23:00 86 98/54 L PG Care Time/CCT Total # of Minutes Spent Total Time Spent with Patient: Total time spent is greater than 50% in coordination of care (as documented) at patient's floor/unit and/or counseling patient: Coding Level of Care Code 46291 SUB INP/OBS CARE 2/35MIN Diagnoses KENDRICK (acute kidney injury) N17.9 Hydronephrosis N13.30 Generalized weakness R53.1 Hyperkalemia, diminished renal excretion E87.5 Hyponatremia E87.1 S/P ureteral stent placement Z96.0 Fall W19.XXXA Bladder tumor D49.4
[2022-11-01] MEDS ORDERED: FLUCONAZOLE 100 MG TAB PO ONE (11:00)
[2022-11-01] MEDS: SODIUM CHLORIDE 0.9% 1000ML 1,000 ML IV SCH (12:08)
--- NOTE | 2022-11-01 12:35 | Cardiology Consultation ---
Date of Consultation November 01, 2022 Assessment & Plan (1) PAF (paroxysmal atrial fibrillation): -his episode was not well tolerated (chest pain, shortness of breath, hypotension). -fortunately, he converted to sinus rhythm after 3 hours of intravenous amiodarone. -currently on therapeutic subcutaneous heparin. -would restart amiodarone at 200 mg b.i.d. -would consider renally adjusted dose a novel anticoagulant. -would discontinue aspirin so he is not on triple therapy (would continue Plavix). (2) CAD (coronary artery disease): -s/p LAD NEVA x2, OM1 NEVA, June 2018. -coronary anatomy described above. -continue medical management. (3) Dyslipidemia: -continue atorvastatin. History of Present Illness Attending Physician: Srini Meza MD History of Present Illness Mr. Benavidez is a 77-year-old male admitted on October 30 after a mechanical fall. He was found to be in acute renal failure possibly secondary to dehydration poor oral intake. He developed an episode of rapid atrial fibrillation last evening, and therefore, this consultation was ordered. Of note, patient typically follows with Erik Beltran in the outpatient setting. The patient's atrial fibrillation was quite symptomatic. He noted substernal chest discomfort along with shortness of breath and was relatively hypotensive. He was given intravenous amiodarone and converted back to sinus rhythm after approximately 3 hours. The patient has not been diagnosed with paroxysmal atrial fibrillation previously. He did complain of intermittent palpitations and wore a 30 day event monitor back in March. This failed to show any episodes of atrial fibrillation. He does carry a history of coronary artery disease having 2 stents placed within the ostial proximal LAD, and 1 stent placed in OM1 back in June 2018. Other disease included a 20% LM, high grade stenosis within the inferior branch of D2, mild diffuse disease of the LCx, 70% OM2, severe disease in the distal PLB, 30% proximal RCA, and 80% right PDA. Currently, patient is resting comfortably in bed without complaints. Past medical and surgical history 1. Coronary artery disease-see above 2. LAD NEVA times 14 June 2018 3. OM1 NEVA-June 2018 4. Hypertension 5. Hypercholesterolemia 6. Renal artery stenosis-less than 60% bilateral, September 2020 7. Diabetes mellitus 8. Colonic polyps 9. BPH 10. Bladder tumor 11. Hydronephrosis 12. Bilateral ureteral stents 13. ORIF of left femur Social history Single, lives alone Quit tobacco use at age 32 Occasional alcohol Family history Mother at 65 from multiple myeloma Father at 63 from multiple myeloma Review of systems A 10 point review systems was undertaken and negative except that described above. Allergies Allergy/AdvReac Type Severity Reaction Status Date / Time No Known Allergies Allergy Verified 10/30/22 08:23 Home Medications Medication Instructions Recorded Confirmed Type aspirin 81 mg chewable tablet 1 tab PO QAM 12/02/18 10/30/22 History chlorthalidone 25 mg tablet 12.5 mg PO BID #90 tabs 10/24/21 10/30/22 Rx lisinopril 40 mg tablet 40 mg PO QAM 12/19/21 10/30/22 History metformin 500 mg tablet,extended 500 mg PO BID #180 tabs 03/19/22 10/30/22 Rx release 24 hr metoprolol succinate 200 mg 200 mg PO BID #180 tabs 06/13/22 10/30/22 Rx tablet,extended release 24 hr clopidogrel 75 mg tablet 75 mg PO QAM #90 tabs 06/21/22 10/30/22 Rx atorvastatin 80 mg tablet 80 mg PO QAM #90 tabs 07/09/22 10/30/22 Rx amlodipine 10 mg tablet 10 mg PO QAM 09/14/22 10/30/22 History fluconazole 100 mg tablet 100 mg PO DAILY #5 tabs 09/16/22 10/30/22 Rx (Diflucan) oxybutynin chloride 5 mg tablet 5 mg PO Q8H PRN bladder spasms #20 09/24/22 10/30/22 Rx tabs oxycodone-acetaminophen 7.5 mg-325 1 tab PO Q8H PRN pain #7 tabs 09/24/22 10/30/22 Rx mg tablet (Percocet) phenazopyridine 200 mg tablet 200 mg PO Q8H PRN pain #10 tabs 09/24/22 10/30/22 Rx (Pyridium) finasteride 5 mg tablet 5 mg PO DAILY #30 tabs 10/02/22 10/30/22 Rx tamsulosin 0.4 mg capsule 0.4 mg PO DAILY #30 caps 10/02/22 10/30/22 Rx Patient History Medical History (Updated 06/22/23 @ 12:32 by Hola Easley MD) ARF (acute renal failure) Benign enlargement of prostate Bladder cancer newly diagnosed 08/2022. CAD (coronary artery disease) "Multi-Vessel CAD s/p Ostial and Proximal LAD NEVA x 2 and OM1 NEVA 07/01/2018 (with residual borderline D2 stenosis, OM2 stenosis, RCA/PDA stenoses which are felt amenable to complex PCI" follows with [place] [facility] Diabetes mellitus, type 2 NIDDM Dyslipidemia History of colon polyps Hypertension Low back pain Multi-vessel coronary artery stenosis Myocardial Infarction ~3 years ago. follows with Erik Beltran. Tubular adenoma of colon Surgical History H/O colonoscopy 08/2016, repeat 5 yrs History of cardiac cath ~3 years ago, "failed stress test, needed cath", [place] History of open reduction and internal fixation (ORIF) procedure Lt. Femur Stented coronary artery ~3 years ago, [facility], following cath at [facility], x1 stent (resolut summer) placed; now f/u Luis Manuel Beltran PA-C, [facility] Cardio. Family History Father Non-Hodgkin's lymphoma Mother Multiple myeloma Sister Dyslipidemia Heart disease Hypertension Uncle Myocardial infarction Other No family history of adverse response to anesthesia Denies family history of Ovarian cancer Prostate cancer Breast cancer Colorectal cancer Social History Smoking Status: Former smoker Second Hand Exposure: No; Do You Dip or Chew Tobacco: No; Hx Alcohol Use: No Hx Substance Use: No Preferred Language: Mauritanian Communication Ability: Effective Visual Impairment: Limited Hearing Ability: Normal Meteorological Engineer Required: No Beliefs That Will Affect Care: None marital status: Single Current Living Situation: Alone current occupational status: retired How many Children do You have: 0 Feels Safe at Home: Yes Childhood Exposure to Second-Hand Smoke: Yes caffeine: Yes Dental Care, Regularly: Yes Physical Activity Frequency: Daily Seatbelt Use: always Sunscreen Use: Yes Assistive Devices: Walker and Other Physical Exam Physical Exam: In general this is a well-developed well-nourished white male in no acute di stress. HEENT exam is negative. Neck is supple with full carotid upstrokes. No carotid bruits. Jugular venous pressure is flat at 90. There is no thyromegaly. Cardiovascular exam reveals a regular rhythm with a normal S1 and S2. No S3, S4, or murmurs are noted. Lungs are clear without rales, rhonchi or wheezes. Abdomen is soft nontender without bruits. Extremities reveal intact radial artery pulses bilaterally. There is no peripheral edema. Results & Data Vital Signs (Past 12 Hours) Vital Signs Temp Pulse Pulse Resp BP Pulse Ox O2 Del Method 11/01/22 11:33 36.6 C 84 20 163/75 H 98 Room Air 11/01/22 08:00 67 11/01/22 07:56 36.7 C 83 18 110/68 94 Room Air 11/01/22 03:30 36.3 C L 76 16 94/53 L 93 Room Air 11/01/22 01:40 73 100/71 97 Room Air Laboratory Results CBC notes hemoglobin 11.7, hematocrit 36.0, white count 6.5, and platelet count [id number]. Electrolytes note a sodium of 137, potassium 3.9, chloride 97, bicarb 29, BUN 125, creatinine 4.2, and glucose of 112. Liver transaminases and TSH levels are normal. Diagnostic Findings Echocardiogram notes normal left ventricular systolic function without wall motion abnormalities. Left ventricular ejection fraction of 60-65%. There was mild LVH. No valvular pathology. EKG last evening noted atrial fibrillation with a rapid ventricular response. There is marked ST abnormality in the inferior and anterolateral leads. Chest x-ray shows no acute disease. PG Care Time/CCT Total # of Minutes Spent Total Time Spent with Patient: Total time spent is greater than 50% in coordination of care (as documented) at patient's floor/unit and/or counseling patient: Coding Level of Care Code 72721 INT INP/OBS CARE 3/75MIN Diagnoses PAF (paroxysmal atrial fibrillation) I48.0 CAD (coronary artery disease) I25.10 Dyslipidemia E78.5
--- NOTE | 2022-11-01 13:41 | Electrocardiogram Report ---
Test Reason : Blood Pressure : / mmHG Vent. Rate : 168 BPM Atrial Rate : 182 BPM P-R Int : 000 ms QRS Dur : 094 ms QT Int : 284 ms P-R-T Axes : 000 026 237 degrees QTc Int : 474 ms Poor data quality, interpretation may be adversely affected Atrial fibrillation with rapid ventricular response with premature ventricular or aberrantly conducte d complexes Marked ST abnormality, possible inferior subendocardial injury Marked ST abnormality, possible anterolateral subendocardial injury Abnormal ECG When compared with ECG of 30-OCT-2022 03:51, Significant changes have occurred Confirmed by Hola Easley ([id number]) on 11/01/2022 1:40:37 PM Referred By: REFERRED SELF Confirmed By:Hola Easley
[2022-11-01] MEDS: ACETAMINOPHEN 500 MG TAB PO SCH ×2 (15:18→21:01)
[2022-11-01] MEDS ORDERED: Heparin IV Adult Wt-Based Standard *NO* Bolus Protocol IV ONE (18:27)
--- NOTE | 2022-11-01 18:28 | Hospitalist Progress Note ---
Date of Service November 01, 2022 Assessment & Plan (1) PAF (paroxysmal atrial fibrillation): Plan: amayank with RVR last pm resolved, spontaneously converted while in a.atilio was hypotensive and had symptoms per outpatient cardiology records he has had palpitations over the years - perhaps he has had PAF for some time? consulted Dr Easley from cardiology about potential for anti-arrhythmic therapy he advises amiodarone appreciate his consultation due to anti-fungal usage will need to watch QTc carefully start amiodarone 200mg BID heparin drip for now once renal function has improved start DOAC cont tele echo - preserved EF, normal valve function (2) Elevated troponin: Plan: likely myocardial demand ischemia in setting of #1 above repeat trop in am tomorrow no evidence of ACS (3) Acute kidney injury: Plan: severe at presentation IMPROVING nicely FeNa >2% c/w intrinsic renal disease or obstructive process or combination of both chronic diuretic use (thiazide) could be skewing the results ARIEL inhibitor use may also have contributed to acute kidney injury -- lisinopril is on hold CT a/p - despite b/l ureteral stents in place he continues with b/l hydronephrosis appreciate urology consultation appreciate nephrology consultation cont NS at 75cc/hr BMP am at this point, since renal function is improving, percutaneous nephrostomy tubes hopefully can be avoided despite the persistent hydronephrosis (4) Hyperkalemia: Plan: 2nd #1 resolved (5) Hyponatremia: Plan: 2nd to #1 resolved (6) Diabetes mellitus, type 2: Plan: resolved a1c 5.6% in 08/2022 a1c 6% this admission metformin - would stop completely at discharge (7) CAD (coronary artery disease): Plan: noted follows with [facility] no evidence of recent ACS even in midst of #1 last pm asa/plavix on hold - resume plavix tomorrow (will not resume asa since he will ultimately be on DOAC) (8) Bladder cancer: Plan: s/p TURBT x 2 per records as well as bilateral ureteral stents with last exchange on 09/24/22 appreciate urology assistance (9) S/P ureteral stent placement: Plan: last exchange 09/24/22 despite what appears to be good positioning on CT imaging of the stents he continues with hydronephrosis b/l need for percutaneous nephrostomy tubes unlikely at this time (10) Complicated urinary tract infection: Plan: 2nd yeast not aguilar albicans while awaiting culture (I called microbiology and culture to be sent out for speciation & sensitivities) place on diflucan watch QTc while on diflucan + amiodarone (11) Urinary incontinence: Plan: nocturnal 2nd BPH, etc PVR today 200cc resume flomax (12) Hypertension: Plan: holding amlodipine holding chlorthalidone holding lisinopril holding metoprolol BPs normal without the above meds suspect weight loss from bladder ca likely the reason he is no longer requiring all of the above restart meds as needed Plan DVT proph - heparin drip, standard dosing PT, OT rehab post-discharge Admission and Anticipated Discharge Date Admission Date: October 30, 2022 Subjective c/o dysuria and suprapubic pain otherwise feeling better appetite modestly improved no dyspnea overnight had rapid a.fib, rates >170 and SBPs 80s and 90s while in it by report he was symptomatic from such but he can't remember everything as he was sleepy last pm when he was in it he has had palpitations over the years converted back to NSR after several hours in rapid a.fib has been NSR since Review of Systems Review of Systems: gen - no fevers/chills cv - no orthopnea, no edema pulm - no dyspnea GI - no nausea/emesis Physical Exam Physical Exam: gen - thin, NAD, pleasant mouth - MMM neck - no JVD heart - RRR, s1 s2, no murmur lungs - CTA b/l abd - soft but mildly tender expected location of bladder; ND BS+ ext - no edema, pulses 2+ b/l psych - a/o x 3 Results & Data Results & Data Vital Signs (Past 12 Hours) Vital Signs Temp Pulse Pulse Resp BP Pulse Ox O2 Del Method 11/01/22 16:47 124/58 L 11/01/22 16:00 78 11/01/22 15:18 36.8 C 54 L 20 97 Room Air 11/01/22 11:33 36.6 C 84 20 163/75 H 98 Room Air 11/01/22 08:00 67 11/01/22 07:56 36.7 C 83 18 110/68 94 Room Air Laboratory Results Laboratory Results - last 48 hr 10/31/22 10/31/22 10/31/22 11:49 16:04 21:55 WBC RBC Hgb Hct MCV MCH MCHC RDW Std Deviation RDW Coeff of Elsi Plt Count MPV Immature Gran % (Auto) Neut % (Auto) Lymph % (Auto) Hart % (Auto) Eos % (Auto) Baso % (Auto) Neut # (Auto) Lymph # (Auto) Hart # (Auto) Eos # (Auto) Baso # (Auto) Immature Gran # (Auto) APTT PTT Ratio Sodium Potassium Chloride Carbon Dioxide Anion Gap BUN Creatinine Est Cr Clr Drug Dosing Est GFR ( Amer) Est GFR (Non-Af Amer) BUN/Creatinine Ratio Glucose POC Glucose 156 H 120 H 163 H Calcium Magnesium Troponin I High Sens 11/01/22 11/01/22 11/01/22 05:57 05:57 07:46 WBC 6.48 RBC 4.30 L Hgb 11.7 L Hct 36.0 L MCV 83.7 MCH 27.2 MCHC 32.5 RDW Std Deviation 43.0 RDW Coeff of Elsi 14.3 Plt Count 142 MPV 11.7 Immature Gran % (Auto) 0.3 Neut % (Auto) 69.9 Lymph % (Auto) 22.4 Hart % (Auto) 5.6 Eos % (Auto) 1.2 Baso % (Auto) 0.6 Neut # (Auto) 4.53 Lymph # (Auto) 1.45 Hart # (Auto) 0.36 Eos # (Auto) 0.08 Baso # (Auto) 0.04 Immature Gran # (Auto) 0.02 APTT PTT Ratio Sodium 137 Potassium 3.9 Chloride 97 L Carbon Dioxide 29 Anion Gap 11 BUN 125 H D Creatinine 4.20 H D Est Cr Clr Drug Dosing 13.2 Est GFR ( Amer) 15.0 Est GFR (Non-Af Amer) 12.9 BUN/Creatinine Ratio 29.8 H Glucose 112 H POC Glucose 136 H Calcium 9.0 Magnesium 2.6 H Troponin I High Sens 323.5 H* 11/01/22 11/01/22 11:15 16:16 WBC RBC Hgb Hct MCV MCH MCHC RDW Std Deviation RDW Coeff of Elsi Plt Count MPV Immature Gran % (Auto) Neut % (Auto) Lymph % (Auto) Hart % (Auto) Eos % (Auto) Baso % (Auto) Neut # (Auto) Lymph # (Auto) Hart # (Auto) Eos # (Auto) Baso # (Auto) Immature Gran # (Auto) APTT PTT Ratio Sodium Potassium Chloride Carbon Dioxide Anion Gap BUN Creatinine Est Cr Clr Drug Dosing Est GFR ( Amer) Est GFR (Non-Af Amer) BUN/Creatinine Ratio Glucose POC Glucose 134 H 108 H Calcium Magnesium Troponin I High Sens PG Care Time/CCT Total # of Minutes Spent Total Time Spent with Patient: Total time spent is greater than 50% in coordination of care (as documented) at patient's floor/unit and/or counseling patient: Coding Level of Care Code 94857 SUB INP/OBS CARE 3/50MIN Diagnoses PAF (paroxysmal atrial fibrillation) I48.0 Elevated troponin R77.8 Acute kidney injury N17.9 Hyperkalemia E87.5 Hyponatremia E87.1 Diabetes mellitus, type 2 E11.9 CAD (coronary artery disease) I25.10 Bladder cancer C67.9 S/P ureteral stent placement Z96.0 Complicated urinary tract infection N39.0 Urinary incontinence R32 Hypertension I10
[2022-11-01] MEDS ORDERED: TAMSULOSIN HCL 0.4 MG CAP PO ONE (19:34)
[2022-11-01 20:13] LABS: Partial Thromboplastin Ratio 1.4
[2022-11-01 20:25] LABS: Partial Thromboplastin Time 40.7 Seconds (21.0-31.0)
[2022-11-01] MEDS: AMIODARONE 200 MG TAB PO SCH (21:05)
[2022-11-01] MEDS: HEPARIN SODIUM/DEXTROSE 25,000 UNITS/500 ML BAG IV SCH (21:45)
[2022-11-02] MEDS: SODIUM CHLORIDE 0.9% 1000ML 1,000 ML IV SCH ×2 (01:28→16:04)
[2022-11-02 04:37] LABS: Basophils # (auto) 0.02 K/uL (0-0.2); Basophils % (auto) 0.4 %; Eosinophils # (auto) 0.16 K/uL (0-0.50); Eosinophils % (auto) 3.3 %; Hematocrit (blood only) 32.4 % (42.0-52.0); Hemoglobin 10.5 g/dl (14.0-18.0); Immature Granulocytes # (auto) 0.02 K/uL (0.01-0.20); Immature Granulocytes % (auto) 0.4 %; Lymphocytes # (auto) 0.67 K/uL (1.2-3.4); Lymphocytes % (auto) 13.9 %; Mean Corpuscular Hemoglobin 27.6 pg (25.0-34.0); Mean Corpuscular Hgb Conc 32.4 g/dL (32.0-36.0); Mean Corpuscular Volume 85.3 fL (80.0-100.0); Mean Platelet Volume 11.4 fL (9.4-12.4); Monocytes # (auto) 0.22 K/uL (0.11-0.59); Monocytes % (auto) 4.6 %; Neutrophils # (auto) 3.74 K/uL (1.40-6.50); Neutrophils % (auto) 77.4 %; Platelet Count 119 K/uL (130-400); RDW Coefficient of Variation 14.1 % (11.5-14.5); RDW Standard Deviation 43.6 fL (36.4-46.3); White Blood Count 4.83 K/ul (4.8-10.8)
[2022-11-02 04:52] LABS: Calcium 8.4 mg/dl (8.6-10.3); Potassium 3.5 mmol/L (3.5-5.1)
[2022-11-02 04:58] LABS: BUN Creatinine Ratio 31.7 (10-20); Creatinine Clr Calc Pharmacy 16.4 ml/min; Est GFR (African American) 19.5 ml/min; Est GFR (Non-African American) 16.8 ml/min
[2022-11-02 05:11] LABS: Troponin I High Sensitivity 145.8 pg/ml (0-20)
[2022-11-02 05:26] LABS: Partial Thromboplastin Ratio 3.7
[2022-11-02] MEDS: INSULIN ASPART PER UNIT CHARGE SC SCH ×4 (08:14→20:17)
--- NOTE | 2022-11-02 08:14 | Urology Progress Note ---
Date of Service November 02, 2022 Assessment & Plan (1) Bladder cancer: (2) ARF (acute renal failure): (3) S/P ureteral stent placement: Plan: 77-year-old male with history of bladder cancer status post resection x2 and bilateral ureteral stents admitted for generalized weakness, acute renal failure, and hyperkalemia. Pt is afebrile and hemodynamically stable. Labs reviewed- creatinine downtrending (3.38), no leukocytosis, hemoglobin 10.5. Continue to trend labs. Urine culture showing Yeast not Tati. Blood cultures no growth x 48 hours. On IV Cefepime and Caspofungin currently. He is voiding spontaneously - will try to avoid Kennedy catheter currently as this may cause more irritation. Recommend monitor urine output and bladder scan prn. Nephrology following - appreciate recommendations. Creatinine continues to downtrend, electrolytes have improved. There is some progression of b/l hydro noted since previous imaging. Stents are in good position and recently exchanged - no current indication to exchange stents at this time. We discussed consideration of percutaneous nephrostomy tubes at a facility with IR if creatinine is not improving. Recommend continue with supportive care and trend labs for now. will follow. Admission and Anticipated Discharge Date Admission Date: October 30, 2022 Subjective Patient seen and examined at bedside this morning. No acute issues overnight. Subjectively feeling well. Appetite improving. Denies suprapubic, abdominal or flank pain. Notes some discomfort with voiding, no hematuria. Denies nausea, vomiting, fever or chills. Review of Systems Constitutional: as per Subjective / HPI Gastrointestinal: as per Subjective / HPI Genitourinary: + as per Subjective / HPI Physical Exam Constitutional: + thin; no acute distress Respiratory: normal respiratory effort; no respiratory distress and no labored breathing Cardiovascular: Extremities: no pedal edema Gastrointestinal (Abdomen): Inspection/Auscultation: abdomen normal to inspection; abdomen not distended Musculoskeletal: Head/Neck/Chest: normocephalic Neurologic: moves all extremities and awake Psychiatric: Orientation: alert and oriented x 3 Results & Data Vital Signs (Past 12 Hours) Vital Signs Temp Pulse Pulse Resp BP Pulse Ox O2 Del Method 11/02/22 08:09 36.7 C 67 18 164/69 H 18 L Room Air 11/02/22 07:30 66 11/02/22 03:19 36.5 C 61 16 120/70 96 Room Air 11/01/22 22:28 68 11/01/22 23:02 36.4 C L 66 18 134/66 96 Room Air PG Care Time/CCT Total # of Minutes Spent Total Time Spent with Patient: Total time spent is greater than 50% in coordination of care (as documented) at patient's floor/unit and/or counseling patient: Coding Level of Care Code 91001 SUB INP/OBS CARE 06/06MIN Diagnoses Bladder cancer C67.9 ARF (acute renal failure) N17.9 S/P ureteral stent placement Z96.0
[2022-11-02] MEDS: ACETAMINOPHEN 500 MG TAB PO SCH ×3 (08:15→20:17)
[2022-11-02] MEDS: FLUCONAZOLE 100 MG TAB PO SCH (08:15)
[2022-11-02] MEDS: TAMSULOSIN HCL 0.4 MG CAP PO SCH (08:15)
[2022-11-02] MEDS: AMIODARONE 200 MG TAB PO SCH ×2 (09:17→16:05)
[2022-11-02] MEDS: POTASSIUM CHLORIDE 10 MEQ TABCR PO SCH (09:50)
--- NOTE | 2022-11-02 12:17 | Nephrology Progress Note ---
Date of Service November 02, 2022 Assessment & Plan (1) KENDRICK (acute kidney injury): (2) Hydronephrosis: (3) Generalized weakness: (4) Hyperkalemia, diminished renal excretion: (5) Hyponatremia: (6) S/P ureteral stent placement: (7) Fall: (8) Bladder tumor: Plan 77-year-old gentleman with baseline decent renal function, creatinine 1.2, recent diagnosis of bladder cancer status post TURBT and bilateral ureteral stent, admitted with few weeks history of generalized weakness poor p.o. intake and noted to have KENDRICK, creatinine 10.4, BUN 199 with multiple electrolyte abnormality including hyperkalemia, hyponatremia and imaging study showing moderate bilateral hydronephrosis which is worse than prior imaging. Renal function rapidly improved, electrolyte abnormality and metabolic acidosis resolved. blood pressure fair, volume status acceptable. -- encourage p.o. intake. expect renal function to continue to improve. -- Monitor renal function electrolyte daily -- dose medications for GFR less than 10, avoid all nephrotoxic medications. Will Sign off, thanks for the consultation, please contact if further assistance is needed. Admission and Anticipated Discharge Date Admission Date: October 30, 2022 Reid Ricci was seen this morning, overall he feels well, denies any symptom. No shortness of breath or chest pain. Blood pressure acceptable. Renal function rapidly improved, electrolyte abnormality resolved. Review of Systems Review of Systems: Detailed review of system was done and pertinent positives and negatives were mentioned above. Physical Exam Constitutional: WD/WN, vitals as above + thin; no acute distress Eyes: + anicteric sclerae Neck: normal visual inspection Respiratory: no respiratory distress Auscultation: lungs clear to auscultation bilaterally Cardiovascular: RRR, no murmur, no edema Skin: no rashes, warm and dry Neurologic: no focal motor deficits Psychiatric: Orientation: alert and oriented x 3 Affect: euthymic affect Results & Data Vital Signs (Past 12 Hours) Vital Signs Temp Pulse Pulse Resp BP Pulse Ox O2 Del Method 11/02/22 11:45 36.5 C 71 18 128/63 96 Room Air 11/02/22 08:09 36.7 C 67 18 149/69 H 98 Room Air 11/02/22 07:30 66 11/02/22 03:19 36.5 C 61 16 120/70 96 Room Air PG Care Time/CCT Total # of Minutes Spent Total Time Spent with Patient: Total time spent is greater than 50% in coordination of care (as documented) at patient's floor/unit and/or counseling patient: Coding Level of Care Code 23087 SUB INP/OBS CARE 2/35MIN Diagnoses KENDRICK (acute kidney injury) N17.9 Hydronephrosis N13.30 Generalized weakness R53.1 Hyperkalemia, diminished renal excretion E87.5 Hyponatremia E87.1 S/P ureteral stent placement Z96.0 Fall W19.XXXA Bladder tumor D49.4
[2022-11-02 12:24] LABS: Partial Thromboplastin Ratio 2.6
[2022-11-02 12:26] LABS: Partial Thromboplastin Time 72.8 Seconds (21.0-31.0)
--- NOTE | 2022-11-02 13:37 | Cardiology Progress Note ---
Date of Service November 02, 2022 Assessment & Plan (1) PAF (paroxysmal atrial fibrillation): Plan: -his episode was not well tolerated. -continue amiodarone 200 mg b.i.d. -currently on therapeutic subcutaneous heparin. -consider renally adjusted dose of a novel anticoagulant. -would discontinue aspirin so he is not on triple therapy (would continue Plavix). (2) CAD (coronary artery disease): Plan: -s/p LAD NEVA x2, OM1 NEVA, June 2018. -coronary anatomy described above. -continue medical management. (3) Dyslipidemia: Plan: -continue atorvastatin. Admission and Anticipated Discharge Date Admission Date: October 30, 2022 Subjective The patient is resting comfortably in bed without complaints of chest pain, dyspnea, or palpitations. Physical Exam Physical Exam: In general this is a well-developed well-nourished white male in no acute distress. HEENT exam is negative. Neck is supple with full carotid upstrokes. No carotid bruits. Jugular venous pressure is flat at 90. There is no thyromegaly. Cardiovascular exam reveals a regular rhythm with a normal S1 and S2. No S3, S4, or murmurs are noted. Lungs are clear without rales, rhonchi or wheezes. Abdomen is soft nontender without bruits. Extremities reveal intact radial artery pulses bilaterally. There is no peripheral edema. Results & Data Vital Signs (Past 12 Hours) Vital Signs Temp Pulse Pulse Resp BP Pulse Ox O2 Del Method 11/02/22 11:45 36.5 C 71 18 128/63 96 Room Air 11/02/22 08:09 36.7 C 67 18 149/69 H 98 Room Air 11/02/22 07:30 66 11/02/22 03:19 36.5 C 61 16 120/70 96 Room Air Diagnostic Findings ekg monitor notes sinus rhythm. No further atrial fibrillation. PG Care Time/CCT Total # of Minutes Spent Total Time Spent with Patient: Total time spent is greater than 50% in coordination of care (as documented) at patient's floor/unit and/or counseling patient: Coding Level of Care Code 26181 SUB INP/OBS CARE 3/50MIN Diagnoses PAF (paroxysmal atrial fibrillation) I48.0 CAD (coronary artery disease) I25.10 Dyslipidemia E78.5
--- NOTE | 2022-11-02 15:12 | Electrocardiogram Report ---
Test Reason : Blood Pressure : / mmHG Vent. Rate : 073 BPM Atrial Rate : 073 BPM P-R Int : 150 ms QRS Dur : 092 ms QT Int : 420 ms P-R-T Axes : 065 044 025 degrees QTc Int : 462 ms Normal sinus rhythm Nonspecific ST abnormality Abnormal ECG When compared with ECG of 31-OCT-2022 19:15, Sinus rhythm has replaced Atrial fibrillation Vent. rate has decreased BY [address] no longer depressed in Inferior leads ST no longer depressed in Lateral leads T wave inversion less evident in Inferior leads T wave inversion no longer evident in Anterolateral leads Confirmed by Hola Easley ([id number]) on 11/02/2022 3:11:51 PM Referred By: REFERRED SELF Confirmed By:Hola Easley
--- NOTE | 2022-11-02 15:35 | Electrocardiogram Report ---
Test Reason : Blood Pressure : / mmHG Vent. Rate : 067 BPM Atrial Rate : 067 BPM P-R Int : 134 ms QRS Dur : 096 ms QT Int : 444 ms P-R-T Axes : 065 048 052 degrees QTc Int : 469 ms Normal sinus rhythm with sinus arrhythmia Normal ECG When compared with ECG of 01-NOV-2022 15:36, (unconfirmed) Nonspecific T wave abnormality has replaced inverted T waves in Inferior leads Confirmed by Hola Easley ([id number]) on 11/02/2022 3:34:49 PM Referred By: REFERRED SELF Confirmed By:Hola Easley
--- NOTE | 2022-11-02 19:29 | Hospitalist Progress Note ---
Date of Service November 02, 2022 Assessment & Plan (1) PAF (paroxysmal atrial fibrillation): Plan: amayank with RVR 2 nights ago resolved, spontaneously converted while in a.fib was hypotensive and had symptoms per outpatient cardiology records he has had palpitations over the years - perhaps he has had PAF for some time? consulted Dr Easley from cardiology about potential for anti-arrhythmic therapy he advised amiodarone started amiodarone 200mg BID QTc on EKG yesterday & today <470msec due to anti-fungal usage will need to watch QTc carefully cont heparin drip for now once renal function has improved start DOAC cont tele echo - preserved EF, normal valve function (2) Elevated troponin: Plan: 2nd myocardial demand ischemia in setting of #1 above repeat trop today has trended down no evidence of ACS (3) Acute kidney injury: Plan: severe at presentation IMPROVING nicely Peak Cr 10.4 now 3 FeNa >2% c/w intrinsic renal disease or obstructive process or combination of both chronic diuretic use (thiazide) could have skewed the results ARIEL inhibitor use may also have contributed to acute kidney injury -- lisinopril is on hold CT a/p - despite b/l ureteral stents in place he continues with b/l hydronephrosis appreciate urology consultation appreciate nephrology consultation cont NS but lower fluid rate to 50cc/hr BMP am (4) Hyperkalemia: Plan: 2nd #1 resolved (5) Hyponatremia: Plan: 2nd to #1 resolved (6) Diabetes mellitus, type 2: Plan: resolved a1c 5.6% in 08/2022 a1c 6% this admission metformin - would stop completely at discharge (7) CAD (coronary artery disease): Plan: noted follows with [facility] no evidence of recent ACS even in midst of #1 last pm asa/plavix on hold - resume plavix but since he will be ultimately on DOAC stop aspirin (8) Bladder cancer: Plan: s/p TURBT x 2 per records as well as bilateral ureteral stents with last exchange on 09/24/22 appreciate urology assistance (9) S/P ureteral stent placement: Plan: last exchange 09/24/22 despite what appears to be good positioning on CT imaging of the stents he continues with hydronephrosis b/l need for percutaneous nephrostomy tubes unlikely at this time (10) Complicated urinary tract infection: Plan: 2nd yeast not aguilar albicans while awaiting culture (I called microbiology and culture to be sent out for speciation & sensitivities) place on diflucan watch QTc while on diflucan + amiodarone (11) Urinary incontinence: Plan: nocturnal 2nd BPH, etc PVR 200cc resumed flomax (12) Hypertension: Plan: amlodipine, chlorthalidone, lisinopril, metoprolol all on hold but BPs starting to trend up if still high tomorrow resume amlodipine hold others Plan DVT proph - heparin drip, standard dosing if diarrhea persists - imodium prn recent stool biofire negative PT, OT rehab post-discharge Admission and Anticipated Discharge Date Admission Date: October 30, 2022 Subjective patient reports having some diarrhea today eating is a little better no dyspnea dysuria improved suprapubic pain improved tele overnight - NSR, no a.fib Review of Systems Review of Systems: gen - no fevers cv - no orthopnea pulm - no cough GI - no nausea/emesis Physical Exam Physical Exam: gen - thin, NAD, looks better than earlier this week mouth - MMM neck - no JVD heart - RRR, s1 s2, no murmur lungs - CTA b/l abd - soft, NT, ND, BS+ ext - no edema, pulses 2+ b/l psych - a/o x 3 Results & Data Results & Data Vital Signs (Past 12 Hours) Vital Signs Temp Pulse Pulse Resp BP Pulse Ox O2 Del Method 11/02/22 16:00 78 11/02/22 16:43 36.2 C L 71 16 150/73 H 100 Room Air 11/02/22 11:45 36.5 C 71 18 128/63 96 Room Air 11/02/22 08:09 36.7 C 67 18 149/69 H 98 Room Air 11/02/22 07:30 66 Laboratory Results Laboratory Results - last 24 hr 11/01/22 11/01/22 11/02/22 19:09 20:06 04:24 WBC RBC Hgb Hct MCV MCH MCHC RDW Std Deviation RDW Coeff of Elsi Plt Count MPV Immature Gran % (Auto) Neut % (Auto) Lymph % (Auto) Mcdowell % (Auto) Eos % (Auto) Baso % (Auto) Neut # (Auto) Lymph # (Auto) Mcdowell # (Auto) Eos # (Auto) Baso # (Auto) Immature Gran # (Auto) APTT 40.7 H* PTT Ratio 1.4 Sodium 140 Potassium 3.5 Chloride 103 Carbon Dioxide 29 Anion Gap 8 BUN 107 H Creatinine 3.38 H D Est Cr Clr Drug Dosing 16.4 Est GFR ( Amer) 19.5 Est GFR (Non-Af Amer) 16.8 BUN/Creatinine Ratio 31.7 H Glucose 111 H POC Glucose 166 H Calcium 8.4 L Troponin I High Sens 145.8 H* D 11/02/22 11/02/22 11/02/22 04:24 04:24 07:30 WBC 4.83 RBC 3.80 L Hgb 10.5 L Hct 32.4 L MCV 85.3 MCH 27.6 MCHC 32.4 RDW Std Deviation 43.6 RDW Coeff of Elsi 14.1 Plt Count 119 L MPV 11.4 Immature Gran % (Auto) 0.4 Neut % (Auto) 77.4 Lymph % (Auto) 13.9 Mcdowell % (Auto) 4.6 Eos % (Auto) 3.3 Baso % (Auto) 0.4 Neut # (Auto) 3.74 Lymph # (Auto) 0.67 L Mcdowell # (Auto) 0.22 Eos # (Auto) 0.16 Baso # (Auto) 0.02 Immature Gran # (Auto) 0.02 APTT 104.0 H* PTT Ratio 3.7 Sodium Potassium Chloride Carbon Dioxide Anion Gap BUN Creatinine Est Cr Clr Drug Dosing Est GFR ( Amer) Est GFR (Non-Af Amer) BUN/Creatinine Ratio Glucose POC Glucose 107 H Calcium Troponin I High Sens 11/02/22 11/02/22 11/02/22 11:25 11:29 15:31 WBC RBC Hgb Hct MCV MCH MCHC RDW Std Deviation RDW Coeff of Elsi Plt Count MPV Immature Gran % (Auto) Neut % (Auto) Lymph % (Auto) Mcdowell % (Auto) Eos % (Auto) Baso % (Auto) Neut # (Auto) Lymph # (Auto) Mcdowell # (Auto) Eos # (Auto) Baso # (Auto) Immature Gran # (Auto) APTT 72.8 H* PTT Ratio 2.6 Sodium Potassium Chloride Carbon Dioxide Anion Gap BUN Creatinine Est Cr Clr Drug Dosing Est GFR ( Amer) Est GFR (Non-Af Amer) BUN/Creatinine Ratio Glucose POC Glucose 118 H 126 H Calcium Troponin I High Sens 11/02/22 18:28 WBC RBC Hgb Hct MCV MCH MCHC RDW Std Deviation RDW Coeff of Elsi Plt Count MPV Immature Gran % (Auto) Neut % (Auto) Lymph % (Auto) Mcdowell % (Auto) Eos % (Auto) Baso % (Auto) Neut # (Auto) Lymph # (Auto) Mcdowell # (Auto) Eos # (Auto) Baso # (Auto) Immature Gran # (Auto) APTT Pending PTT Ratio Pending Sodium Potassium Chloride Carbon Dioxide Anion Gap BUN Creatinine Est Cr Clr Drug Dosing Est GFR ( Amer) Est GFR (Non-Af Amer) BUN/Creatinine Ratio Glucose POC Glucose Calcium Troponin I High Sens Diagnostic Findings blood cx's remain negative PG Care Time/CCT Total # of Minutes Spent Total Time Spent with Patient: Total time spent is greater than 50% in coordination of care (as documented) at patient's floor/unit and/or counseling patient: Coding Level of Care Code 32347 SUB INP/OBS CARE 2/35MIN Diagnoses PAF (paroxysmal atrial fibrillation) I48.0 Elevated troponin R77.8 Acute kidney injury N17.9 Hyperkalemia E87.5 Hyponatremia E87.1 Diabetes mellitus, type 2 E11.9 CAD (coronary artery disease) I25.10 Bladder cancer C67.9 S/P ureteral stent placement Z96.0 Complicated urinary tract infection N39.0 Urinary incontinence R32 Hypertension I10
[2022-11-02 19:42] LABS: Partial Thromboplastin Ratio 2.2
[2022-11-02] MEDS: HEPARIN SODIUM/DEXTROSE 25,000 UNITS/500 ML BAG IV SCH (19:45)
[2022-11-02 20:19] LABS: Partial Thromboplastin Time 62.6 Seconds (21.0-31.0)
[2022-11-03 07:15] LABS: Basophils # (auto) 0.02 K/uL (0-0.2); Basophils % (auto) 0.4 %; Eosinophils # (auto) 0.14 K/uL (0-0.50); Eosinophils % (auto) 3.1 %; Hematocrit (blood only) 35.2 % (42.0-52.0); Hemoglobin 11.2 g/dl (14.0-18.0); Immature Granulocytes # (auto) 0.02 K/uL (0.01-0.20); Immature Granulocytes % (auto) 0.4 %; Lymphocytes # (auto) 0.84 K/uL (1.2-3.4); Lymphocytes % (auto) 18.8 %; Mean Corpuscular Hemoglobin 27.3 pg (25.0-34.0); Mean Corpuscular Hgb Conc 31.8 g/dL (32.0-36.0); Mean Corpuscular Volume 85.9 fL (80.0-100.0); Mean Platelet Volume 11.3 fL (9.4-12.4); Monocytes # (auto) 0.24 K/uL (0.11-0.59); Monocytes % (auto) 5.4 %; Neutrophils # (auto) 3.21 K/uL (1.40-6.50); Neutrophils % (auto) 71.9 %; Platelet Count 146 K/uL (130-400); RDW Coefficient of Variation 14.4 % (11.5-14.5); RDW Standard Deviation 44.5 fL (36.4-46.3); White Blood Count 4.47 K/ul (4.8-10.8)
[2022-11-03 07:40] LABS: BUN Creatinine Ratio 28.4 (10-20); Calcium 8.6 mg/dl (8.6-10.3); Creatinine Clr Calc Pharmacy 19.2 ml/min; Est GFR (Non-African American) 21.6 ml/min
[2022-11-03] MEDS: INSULIN ASPART PER UNIT CHARGE SC SCH ×4 (07:40→20:47)
[2022-11-03] MEDS: POTASSIUM CHLORIDE 10 MEQ TABCR PO SCH (08:44)
[2022-11-03] MEDS: AMIODARONE 200 MG TAB PO SCH ×2 (08:44→17:12)
[2022-11-03] MEDS: TAMSULOSIN HCL 0.4 MG CAP PO SCH (08:45)
[2022-11-03] MEDS: ACETAMINOPHEN 500 MG TAB PO SCH ×3 (08:45→20:47)
[2022-11-03] MEDS: FLUCONAZOLE 100 MG TAB PO SCH (08:45)
[2022-11-03 08:46] LABS: Partial Thromboplastin Time 56.2 Seconds (21.0-31.0)
[2022-11-03] MEDS: amLODIPine BESYLATE 5 MG TAB PO SCH (09:54)
[2022-11-03] MEDS: CLOPIDOGREL BISULFATE 75 MG TAB PO SCH (10:40)
[2022-11-03] MEDS: SODIUM CHLORIDE 0.9% 1000ML 1,000 ML IV SCH (13:15)
--- NOTE | 2022-11-03 16:08 | Hospitalist Progress Note ---
Date of Service November 03, 2022 Assessment & Plan (1) Acute kidney injury: Plan: IMPROVING nicely Peak Cr 10.4 now <3 FeNa >2% c/w intrinsic renal disease or obstructive process or combination of both chronic diuretic use (thiazide) could have skewed the results ARIEL inhibitor use may also have contributed to acute kidney injury -- lisinopril is on hold CT a/p - despite b/l ureteral stents in place he continues with b/l hydronephrosis but urology recommends ongoing observation as opposed to stent exchange or percutaneous nephrostomy tubes appreciate urology consultation appreciate nephrology consultation cont NS 50cc/hr BMP am (2) Complicated urinary tract infection: Plan: 2nd yeast not aguilar albicans while awaiting culture (I called microbiology and culture to be sent out for speciation & sensitivities) placed on diflucan watch QTc while on diflucan + amiodarone obtain EKG tomorrow am (3) PAF (paroxysmal atrial fibrillation): Plan: a.fib with RVR earlier this week resolved, spontaneously converted while in a.fib was hypotensive and had symptoms per outpatient cardiology records he has had palpitations over the years - perhaps he has had PAF for some time? consulted Dr Easley from cardiology about potential for anti-arrhythmic therapy he advised amiodarone started amiodarone 200mg BID QTc on most recent 2 EKGs <470msec due to anti-fungal usage will need to watch QTc carefully cont heparin drip for now once renal function has improved start DOAC cont tele echo - preserved EF, normal valve function repeat EKG am (4) Elevated troponin: Plan: 2nd myocardial demand ischemia in setting of #1 above repeat trop today has trended down no evidence of ACS (5) Hyperkalemia: Plan: 2nd #1 resolved (6) Hyponatremia: Plan: 2nd to #1 resolved (7) Diabetes mellitus, type 2: Plan: resolved a1c 5.6% in 08/2022 a1c 6% this admission metformin - would stop completely at discharge (8) CAD (coronary artery disease): Plan: noted follows with [facility] no evidence of recent ACS even in midst of #1 last pm asa/plavix on hold - resumed plavix but since he will be ultimately on DOAC stopped aspirin (9) Bladder cancer: Plan: s/p TURBT x 2 per records as well as bilateral ureteral stents with last exchange on 09/24/22 appreciate urology assistance (10) S/P ureteral stent placement: Plan: last exchange 09/24/22 despite what appears to be good positioning on CT imaging of the stents he continues with hydronephrosis b/l need for percutaneous nephrostomy tubes unlikely at this time (11) Urinary incontinence: Plan: nocturnal 2nd BPH, etc PVR 200cc resumed flomax (12) Hypertension: Plan: amlodipine, chlorthalidone, lisinopril, metoprolol have all been on hold but BPs starting to trend up resume amlodipine 5mg daily hold others (13) Epigastric abdominal pain: Plan: gastritis? other? start PPI start carafate 1gm QID abdominal x-rays -- r/o fecal impaction, etc re-eval tomorrow recent stool BioFire negative Plan DVT proph - heparin drip, standard dosing cont PT, OT rehab post-discharge was initially planned but patient is ADAMANTLY opposed to such at this time we had very lengthy conversation about this today I counseled him that if he wishes to return home his mobility & strength need to improve needs to sit in chair/get OOB more frequently has been in bed most of the hospitalization left message for [employer] [place] - friend - at pt's request Admission and Anticipated Discharge Date Admission Date: October 30, 2022 Subjective tele overnight - no PAF NSR only patient irritated today -- states under no circumstances will he go to rehab post-d/c he is most worried about his bills he needs to pay and he needs to get his checkbook from his apartment he called a friend to see if that person could retrieve the checkbook but hasn't heard from him I told Mr Benavidez that the care team was under the impression he was wanting rehab post-d/c however, he said that that is not the case he thought "rehab" meant our physical therapists working with him every day while hospitalized patient still with poor appetite c/o upper abdominal pain with eating stools still a little loose no vomiting dysuria resolved Review of Systems Review of Systems: gen - no fevers or chills cv - no cp, no orthopnea, no edema pulm - no dyspnea GI - no nausea Physical Exam Physical Exam: gen - thin, NAD, irritable today mouth - MMM neck - no JVD heart - RRR, s1 s2, no murmur lungs - CTA b/l abd - soft, ND, BS+; tender high epigastric region to palpation ext - no edema, pulses 2+ b/l psych - a/o x 3, irritable Results & Data Results & Data Vital Signs (Past 12 Hours) Vital Signs Temp Pulse Pulse Resp BP Pulse Ox O2 Del Method 11/03/22 15:47 87 11/03/22 11:30 36.8 C 61 18 134/72 98 Room Air 11/03/22 08:00 61 11/03/22 07:56 36.6 C 72 18 160/78 H 97 Room Air Laboratory Results Laboratory Results - last 48 hr 11/02/22 11/02/22 11/02/22 11:25 11:29 15:31 WBC RBC Hgb Hct MCV MCH MCHC RDW Std Deviation RDW Coeff of Elsi Plt Count MPV Immature Gran % (Auto) Neut % (Auto) Lymph % (Auto) Motley % (Auto) Eos % (Auto) Baso % (Auto) Neut # (Auto) Lymph # (Auto) Motley # (Auto) Eos # (Auto) Baso # (Auto) Immature Gran # (Auto) APTT 72.8 H* PTT Ratio 2.6 Sodium Potassium Chloride Carbon Dioxide Anion Gap BUN Creatinine Est Cr Clr Drug Dosing Est GFR ( Amer) Est GFR (Non-Af Amer) BUN/Creatinine Ratio Glucose POC Glucose 118 H 126 H Calcium 11/02/22 11/02/22 11/03/22 18:28 20:07 06:46 WBC 4.47 L RBC 4.10 L Hgb 11.2 L Hct 35.2 L MCV 85.9 MCH 27.3 MCHC 31.8 L RDW Std Deviation 44.5 RDW Coeff of Elsi 14.4 Plt Count 146 MPV 11.3 Immature Gran % (Auto) 0.4 Neut % (Auto) 71.9 Lymph % (Auto) 18.8 Motley % (Auto) 5.4 Eos % (Auto) 3.1 Baso % (Auto) 0.4 Neut # (Auto) 3.21 Lymph # (Auto) 0.84 L Motley # (Auto) 0.24 Eos # (Auto) 0.14 Baso # (Auto) 0.02 Immature Gran # (Auto) 0.02 APTT 62.6 H* PTT Ratio 2.2 Sodium Potassium Chloride Carbon Dioxide Anion Gap BUN Creatinine Est Cr Clr Drug Dosing Est GFR ( Amer) Est GFR (Non-Af Amer) BUN/Creatinine Ratio Glucose POC Glucose 135 H Calcium 11/03/22 11/03/22 11/03/22 06:46 06:46 07:25 WBC RBC Hgb Hct MCV MCH MCHC RDW Std Deviation RDW Coeff of Elsi Plt Count MPV Immature Gran % (Auto) Neut % (Auto) Lymph % (Auto) Motley % (Auto) Eos % (Auto) Baso % (Auto) Neut # (Auto) Lymph # (Auto) Motley # (Auto) Eos # (Auto) Baso # (Auto) Immature Gran # (Auto) APTT 56.2 H* PTT Ratio 2.0 Sodium 142 Potassium 4.0 Chloride 106 Carbon Dioxide 30 Anion Gap 6 BUN 78 H D Creatinine 2.75 H D Est Cr Clr Drug Dosing 19.2 Est GFR ( Amer) 25.0 Est GFR (Non-Af Amer) 21.6 BUN/Creatinine Ratio 28.4 H Glucose 102 H POC Glucose 91 Calcium 8.6 11/03/22 11/03/22 11/03/22 11:06 16:11 20:01 WBC RBC Hgb Hct MCV MCH MCHC RDW Std Deviation RDW Coeff of Elsi Plt Count MPV Immature Gran % (Auto) Neut % (Auto) Lymph % (Auto) Motley % (Auto) Eos % (Auto) Baso % (Auto) Neut # (Auto) Lymph # (Auto) Motley # (Auto) Eos # (Auto) Baso # (Auto) Immature Gran # (Auto) APTT PTT Ratio Sodium Potassium Chloride Carbon Dioxide Anion Gap BUN Creatinine Est Cr Clr Drug Dosing Est GFR ( Amer) Est GFR (Non-Af Amer) BUN/Creatinine Ratio Glucose POC Glucose 123 H 113 H 101 H Calcium PG Care Time/CCT Total # of Minutes Spent Total Time Spent with Patient: Total time spent is greater than 50% in coordination of care (as documented) at patient's floor/unit and/or counseling patient: Coding Level of Care Code 23735 SUB INP/OBS CARE 3/50MIN Diagnoses Acute kidney injury N17.9 Complicated urinary tract infection N39.0 PAF (paroxysmal atrial fibrillation) I48.0 Elevated troponin R77.8 Hyperkalemia E87.5 Hyponatremia E87.1 Diabetes mellitus, type 2 E11.9 CAD (coronary artery disease) I25.10 Bladder cancer C67.9 S/P ureteral stent placement Z96.0 Urinary incontinence R32 Hypertension I10 Epigastric abdominal pain R10.13
[2022-11-03] MEDS ORDERED: PANTOprazole 40 MG TAB PO STA (16:11)
--- NOTE | 2022-11-03 17:07 | XRay Report ---
XR abdomen 2V w PA chest CLINICAL HISTORY: abd pain TECHNIQUE: 2 views of the abdomen were obtained. A single view of the chest was obtained. Comparison: Comparison is made to chest radiograph of the 2022 FINDINGS: No lines and tubes are seen. Calcified aortic knob is seen. The lungs are clear. No evidence of pleur al effusion or pneumothorax. Bilateral nephroureteral stents are seen. Degenerative changes are seen in the visualized skeleton. T he bowel gas pattern is nonobstructive. A moderate amount of stool is noted within the large bowel. IMPRESSION: Nonobstructive bowel gas pattern. ACT 112: Negative or not required by law. Electronically signed by: Sathya Goldman M.D. 11/03/2022 5:05 PM
[2022-11-03] MEDS: SUCRALFATE 1 GM/10 ML UDC PO SCH ×2 (17:11→20:46)
[2022-11-03] MEDS: HEPARIN SODIUM/DEXTROSE 25,000 UNITS/500 ML BAG IV SCH (19:31)
[2022-11-03] MEDS: CALCIUM POLYCARBOPHIL 625MG TAB PO SCH (20:45)
[2022-11-04] MEDS: INSULIN ASPART PER UNIT CHARGE SC SCH ×4 (08:55→20:29)
[2022-11-04] MEDS: CALCIUM POLYCARBOPHIL 625MG TAB PO SCH (08:59)
[2022-11-04] MEDS: FLUCONAZOLE 100 MG TAB PO SCH (08:59)
[2022-11-04] MEDS: TAMSULOSIN HCL 0.4 MG CAP PO SCH (08:59)
[2022-11-04] MEDS: PANTOprazole 40 MG TAB PO SCH (08:59)
[2022-11-04] MEDS: SUCRALFATE 1 GM/10 ML UDC PO SCH ×5 (08:59→20:30)
[2022-11-04] MEDS: POTASSIUM CHLORIDE 10 MEQ TABCR PO SCH (08:59)
[2022-11-04] MEDS: ACETAMINOPHEN 500 MG TAB PO SCH ×3 (08:59→20:58)
[2022-11-04] MEDS: CLOPIDOGREL BISULFATE 75 MG TAB PO SCH (08:59)
[2022-11-04] MEDS: AMIODARONE 200 MG TAB PO SCH ×2 (08:59→17:34)
[2022-11-04] MEDS: amLODIPine BESYLATE 5 MG TAB PO SCH (09:00)
[2022-11-04] MEDS: SODIUM CHLORIDE 0.9% 1000ML 1,000 ML IV SCH (09:00)
[2022-11-04 09:31] LABS: BUN Creatinine Ratio 23.9 (10-20); Calcium 8.3 mg/dl (8.6-10.3); Creatinine Clr Calc Pharmacy 24.1 ml/min; Est GFR (Non-African American) 26.8 ml/min; Potassium 4.1 mmol/L (3.5-5.1)
[2022-11-04 09:46] LABS: Partial Thromboplastin Ratio 1.6
[2022-11-04] MEDS: METOPROLOL TARTRATE 25 MG TAB PO SCH ×2 (09:50→20:58)
[2022-11-04 10:09] LABS: Partial Thromboplastin Time 46.1 Seconds (21.0-31.0)
--- NOTE | 2022-11-04 19:51 | Hospitalist Progress Note ---
Date of Service November 04, 2022 Assessment & Plan (1) Acute kidney injury: Plan: Peak Cr 10.4 now 2.3 FeNa >2% c/w intrinsic renal disease or obstructive process or combination of both chronic diuretic use (thiazide) could have skewed the results ARIEL inhibitor use may also have contributed to acute kidney injury -- lisinopril is on hold CT a/p - despite b/l ureteral stents in place he continues with b/l hydronephrosis but urology recommends ongoing observation as opposed to stent exchange or percutaneous nephrostomy tubes appreciate urology consultation appreciate nephrology consultation fluids have been stopped BMP am (2) Complicated urinary tract infection: Plan: 2nd yeast not aguilar albicans while awaiting culture (I called microbiology and culture to be sent out for speciation & sensitivities) placed on diflucan watch QTc while on diflucan + amiodarone obtain EKG tomorrow am (3) PAF (paroxysmal atrial fibrillation): Plan: a.fib with RVR last week resolved, spontaneously converted while in a.fib was hypotensive and had symptoms per outpatient cardiology records he has had palpitations over the years - perhaps he has had PAF for some time? consulted cardiology about potential for anti-arrhythmic therapy started amiodarone 200mg BID QTc on most recent 2 EKGs <470msec due to anti-fungal usage will need to watch QTc carefully cont heparin drip for now once renal function has improved start DOAC (Eliquis if affordable) cont tele echo - preserved EF, normal valve function repeat EKG am (4) Elevated troponin: Plan: 2nd myocardial demand ischemia in setting of #1 above repeat trop today has trended down no evidence of ACS (5) Hyperkalemia: Plan: 2nd #1 resolved (6) Hyponatremia: Plan: 2nd to #1 resolved (7) Diabetes mellitus, type 2: Plan: resolved a1c 5.6% in 08/2022 a1c 6% this admission metformin - would stop completely at discharge (8) CAD (coronary artery disease): Plan: noted follows with [facility] no evidence of recent ACS even in midst of #1 last pm asa/plavix on hold - resumed plavix but since he will be ultimately on DOAC stopped aspirin (9) Bladder cancer: Plan: s/p TURBT x 2 per records as well as bilateral ureteral stents with last exchange on 09/24/22 appreciate urology assistance (10) S/P ureteral stent placement: Plan: last exchange 09/24/22 despite what appears to be good positioning on CT imaging of the stents he continues with hydronephrosis b/l need for percutaneous nephrostomy tubes unlikely at this time (11) Urinary incontinence: Plan: nocturnal 2nd BPH, etc PVR 200cc resumed flomax (12) Hypertension: Plan: uncontrolled resume amlodipine 5mg daily resume metoprolol 25mg BID hold chlorthalidone, lisinopril (13) Epigastric abdominal pain: Plan: suspected gastritis improved with PPI + carafate 1gm QID - change latter to pill form abdominal x-rays largely wnl recent stool BioFire negative Plan DVT proph - heparin drip, standard dosing cont PT, OT rehab post-discharge was initially planned but patient is ADAMANTLY opposed to such at this time I previously counseled him that if he wishes to return home his mobility & strength need to improve needs to sit in chair/get OOB more frequently has been in bed most of the hospitalization left message for [employer] [place] - friend - at pt's request yesterday evening Admission and Anticipated Discharge Date Admission Date: October 30, 2022 Subjective tele overnight - no a.fib; NSR only feels really good today appetite improved abd pain resolved had a stool and it was fairly normal can't take carafate liquid - it makes him have nausea he has not heard from his friend yet who would be the one that would get him his belongings & checkbook from his apartment Review of Systems Review of Systems: gen - no fevers cv - no cp, no PND pulm - no dyspnea GI - no further pain/nausea/emesis Physical Exam Physical Exam: gen - thin, NAD, looks good mouth - MMM neck - no JVD heart - RRR, s1 s2, no murmur lungs - CTA b/l abd - soft, ND, BS+; nontender to palpation ext - no edema, pulses 2+ b/l psych - a/o x 3 Results & Data Results & Data Vital Signs (Past 12 Hours) Vital Signs Temp Pulse Pulse Resp BP Pulse Ox O2 Del Method 11/04/22 19:22 37.1 C 76 18 160/75 H 98 Room Air 11/04/22 16:00 71 11/04/22 16:02 36.7 C 69 18 161/72 H 98 Room Air 11/04/22 11:50 36.7 C 64 20 120/64 100 Room Air 11/04/22 08:00 71 11/04/22 07:57 36.7 C 84 18 160/85 H 98 Room Air Laboratory Results Laboratory Results - last 24 hr 11/03/22 11/04/22 11/04/22 20:01 07:29 08:49 APTT PTT Ratio Sodium 140 Potassium 4.1 Chloride 108 H Carbon Dioxide 25 Anion Gap 7 BUN 55 H D Creatinine 2.30 H D Est Cr Clr Drug Dosing 24.1 Est GFR ( Amer) 31.0 Est GFR (Non-Af Amer) 26.8 BUN/Creatinine Ratio 23.9 H Glucose 144 H POC Glucose 101 H 93 Calcium 8.3 L 11/04/22 11/04/22 08:49 11:42 APTT 46.1 H* PTT Ratio 1.6 Sodium Potassium Chloride Carbon Dioxide Anion Gap BUN Creatinine Est Cr Clr Drug Dosing Est GFR ( Amer) Est GFR (Non-Af Amer) BUN/Creatinine Ratio Glucose POC Glucose 115 H Calcium PG Care Time/CCT Total # of Minutes Spent Total Time Spent with Patient: Total time spent is greater than 50% in coordination of care (as documented) at patient's floor/unit and/or counseling patient: Coding Level of Care Code 21415 SUB INP/OBS CARE 2/35MIN Diagnoses Acute kidney injury N17.9 Complicated urinary tract infection N39.0 PAF (paroxysmal atrial fibrillation) I48.0 Elevated troponin R77.8 Hyperkalemia E87.5 Hyponatremia E87.1 Diabetes mellitus, type 2 E11.9 CAD (coronary artery disease) I25.10 Bladder cancer C67.9 S/P ureteral stent placement Z96.0 Urinary incontinence R32 Hypertension I10 Epigastric abdominal pain R10.13
[2022-11-05] MEDS: HEPARIN SODIUM/DEXTROSE 25,000 UNITS/500 ML BAG IV SCH (01:15)
[2022-11-05] MEDS: INSULIN ASPART PER UNIT CHARGE SC SCH ×3 (08:27→16:22)
[2022-11-05] MEDS: CLOPIDOGREL BISULFATE 75 MG TAB PO SCH (08:31)
[2022-11-05] MEDS: TAMSULOSIN HCL 0.4 MG CAP PO SCH (08:31)
[2022-11-05] MEDS: SUCRALFATE 1 GM TAB PO SCH ×4 (08:31→20:51)
[2022-11-05] MEDS: CALCIUM POLYCARBOPHIL 625MG TAB PO SCH (08:31)
[2022-11-05] MEDS: PANTOprazole 40 MG TAB PO SCH (08:31)
[2022-11-05] MEDS: AMIODARONE 200 MG TAB PO SCH ×2 (08:31→16:27)
[2022-11-05] MEDS: ACETAMINOPHEN 500 MG TAB PO SCH ×3 (08:31→20:51)
[2022-11-05] MEDS: POTASSIUM CHLORIDE 10 MEQ TABCR PO SCH (08:31)
[2022-11-05] MEDS: amLODIPine BESYLATE 5 MG TAB PO SCH ×2 (08:31→20:52)
[2022-11-05] MEDS: FLUCONAZOLE 100 MG TAB PO SCH (08:31)
[2022-11-05] MEDS: METOPROLOL TARTRATE 25 MG TAB PO SCH ×2 (08:31→20:52)
[2022-11-05 12:26] LABS: BUN Creatinine Ratio 17.9 (10-20); Calcium 8.4 mg/dl (8.6-10.3); Creatinine Clr Calc Pharmacy 21.6 ml/min; Est GFR (African American) 27.1 ml/min; Est GFR (Non-African American) 23.4 ml/min; Potassium 4.3 mmol/L (3.5-5.1)
--- NOTE | 2022-11-05 20:17 | Hospitalist Progress Note ---
Date of Service November 05, 2022 Assessment & Plan (1) Acute kidney injury: Plan: Peak Cr 10.4 now 2.5 FeNa >2% c/w intrinsic renal disease or obstructive process or combination of both chronic diuretic use (thiazide) could have skewed the results ARIEL inhibitor use may also have contributed to acute kidney injury -- lisinopril is on hold and would NOT resume at discharge CT a/p - despite b/l ureteral stents in place he continues with b/l hydronephrosis but urology recommends ongoing observation as opposed to stent exchange or percutaneous nephrostomy tubes appreciate urology consultation RECOMMEND F/U WITH UROLOGY POST-DISCHARGE for stents appreciate nephrology consultation RECOMMEND F/U WITH NEPHROLOGY POST- DISCHARGE for KENDRICK BMP am (2) Complicated urinary tract infection: Plan: 2nd yeast not aguilar albicans while awaiting culture placed on diflucan 200mg daily culture sent to [facility] for speciation & sensitivities send out on 1 week of diflucan 200mg daily while awaiting culture due to concomitant diflucan + amiodarone checking periodic EKG - QTc today again acceptable (3) PAF (paroxysmal atrial fibrillation): Plan: a.fib with RVR last week resolved, spontaneously converted while in a.fib was hypotensive and had symptoms per outpatient cardiology records he has had palpitations over the years - perhaps he has had PAF for some time? consulted cardiology about potential for anti-arrhythmic therapy started amiodarone 200mg BID QTc on most recent 3 EKGs <470msec due to anti-fungal usage will need to watch QTc carefully STOP heparin drip change to ELIQUIS 5mg BID echo - preserved EF, normal valve function (4) Elevated troponin: Plan: present on admission --> 2nd myocardial demand ischemia in setting of #1 above no evidence of ACS (5) Hyperkalemia: Plan: 2nd #1 resolved (6) Hyponatremia: Plan: 2nd to #1 resolved (7) Diabetes mellitus, type 2: Plan: resolved a1c 5.6% in 08/2022 a1c 6% this admission metformin - would stop completely at discharge (8) CAD (coronary artery disease): Plan: noted follows with Erik [facility] no evidence of recent ACS even in midst of #1 last pm asa/plavix on hold - resumed plavix but since he will be ultimately on DOAC stopped aspirin EKG today with diffuse ST changes but NO symptoms to suggest ischemia has f/u with Mr REGINA Summers, [facility] cardiology on 11/15/22 (9) Bladder cancer: Plan: s/p TURBT x 2 per records as well as bilateral ureteral stents with last exchange on 09/24/22 appreciate urology assistance (10) S/P ureteral stent placement: Plan: last exchange 09/24/22 despite what appears to be good positioning on CT imaging of the stents he continues with hydronephrosis b/l need for percutaneous nephrostomy tubes unlikely at this time (11) Urinary incontinence: Plan: nocturnal 2nd BPH, etc PVR 200cc resumed flomax (12) Hypertension: Plan: uncontrolled thus increase amlodipine to 5mg BID continue metoprolol 25mg BID hold chlorthalidone, lisinopril (13) Epigastric abdominal pain: Plan: suspected gastritis improved with PPI + carafate 1gm QID - changed latter to pill form abdominal x-rays largely wnl recent stool BioFire negative send out on pantoprazole 40mg daily send out on carafate 1gm QID x 1 week then stop Plan DVT proph - change to Eliquis from heparin drip cont PT, OT rehab post-discharge was initially planned but patient is ADAMANTLY opposed to such at this time I previously counseled him that if he wishes to return home his mobility & strength need to improve needs to sit in chair/get OOB more frequently needs to be able to walk up steps as he has steps into his home left message for Evens Dover - friend - at pt's request over weekend; never heard from Mr Dover if creatinine is stable tomorrow and he can ascend steps he can d/c home tomorrow Admission and Anticipated Discharge Date Admission Date: October 30, 2022 Subjective patient upset today - tired of being poked for blood, wants to go home, states he has to get home to pay bills or some of his utilities will be shut off he worked with PT today - states it "went well" but he did not practice going up steps he has 3 steps to get into his home in [place] he plans to go to outpatient rehab at the current time he declines home health and home PT/OT because several things are broken in his home and wants to fix those things first before having people to his house tele overnight - NSR, no a.fib Review of Systems Review of Systems: gen - appetite has returned to normal cv - no cp, no orthopnea pulm - no dyspnea or GROSS GI - stools have normalized; no N/V - no dysuria Physical Exam Physical Exam: gen - thin, NAD, agitated today mouth - MMM neck - no JVD heart - RRR, s1 s2, no murmur lungs - CTA b/l abd - soft, ND, BS+; nontender to palpation ext - no edema, pulses 2+ b/l psych - a/o x 3 Results & Data Results & Data Vital Signs (Past 12 Hours) Vital Signs Temp Pulse Pulse Resp BP Pulse Ox O2 Del Method 11/05/22 19:32 36.7 C 68 15 169/77 H 99 Room Air 11/05/22 15:36 36.8 C 82 18 166/82 H 97 Room Air 11/05/22 13:56 81 11/05/22 13:45 Room Air 11/05/22 11:35 36.7 C 105 H 20 138/76 97 Room Air Laboratory Results Laboratory Results - last 24 hr 11/05/22 11/05/22 11/05/22 07:17 11:06 11:43 Sodium 142 Potassium 4.3 Chloride 112 H Carbon Dioxide 24 Anion Gap 6 BUN 46 H Creatinine 2.57 H Est Cr Clr Drug Dosing 21.6 Est GFR ( Amer) 27.1 Est GFR (Non-Af Amer) 23.4 BUN/Creatinine Ratio 17.9 Glucose 121 H POC Glucose 100 H 135 H Calcium 8.4 L 11/05/22 11/05/22 16:17 20:06 Sodium Potassium Chloride Carbon Dioxide Anion Gap BUN Creatinine Est Cr Clr Drug Dosing Est GFR ( Amer) Est GFR (Non-Af Amer) BUN/Creatinine Ratio Glucose POC Glucose 92 156 H Calcium PG Care Time/CCT Total # of Minutes Spent Total Time Spent with Patient: Total time spent is greater than 50% in coordination of care (as documented) at patient's floor/unit and/or counseling patient: Coding Level of Care Code 61219 SUB INP/OBS CARE 2/35MIN Diagnoses Acute kidney injury N17.9 Complicated urinary tract infection N39.0 PAF (paroxysmal atrial fibrillation) I48.0 Elevated troponin R77.8 Hyperkalemia E87.5 Hyponatremia E87.1 Diabetes mellitus, type 2 E11.9 CAD (coronary artery disease) I25.10 Bladder cancer C67.9 S/P ureteral stent placement Z96.0 Urinary incontinence R32 Hypertension I10 Epigastric abdominal pain R10.13
[2022-11-05] MEDS: APIXABAN 5 MG TABLET PO SCH (20:51)
[2022-11-06 07:07] LABS: Hematocrit (blood only) 30.8 % (42.0-52.0); Hemoglobin 9.6 g/dl (14.0-18.0); Mean Corpuscular Hemoglobin 27.3 pg (25.0-34.0); Mean Corpuscular Hgb Conc 31.2 g/dL (32.0-36.0); Mean Corpuscular Volume 87.5 fL (80.0-100.0); Mean Platelet Volume 10.9 fL (9.4-12.4); Platelet Count 130 K/uL (130-400); RDW Coefficient of Variation 14.6 % (11.5-14.5); RDW Standard Deviation 46.6 fL (36.4-46.3); Red Blood Count 3.52 M/uL (4.70-6.10); White Blood Count 3.68 K/ul (4.8-10.8)
[2022-11-06 07:30] LABS: BUN Creatinine Ratio 19.2 (10-20); Calcium 8.1 mg/dl (8.6-10.3); Creatinine Clr Calc Pharmacy 28.8 ml/min; Est GFR (African American) 38.4 ml/min; Est GFR (Non-African American) 33.1 ml/min; Potassium 4.1 mmol/L (3.5-5.1)
[2022-11-06] MEDS: FLUCONAZOLE 100 MG TAB PO SCH (08:38)
[2022-11-06] MEDS: APIXABAN 5 MG TABLET PO SCH ×2 (08:38→20:41)
[2022-11-06] MEDS: POTASSIUM CHLORIDE 10 MEQ TABCR PO SCH (08:38)
[2022-11-06] MEDS: amLODIPine BESYLATE 5 MG TAB PO SCH ×2 (08:38→20:41)
[2022-11-06] MEDS: ACETAMINOPHEN 500 MG TAB PO SCH ×3 (08:38→20:42)
[2022-11-06] MEDS: METOPROLOL TARTRATE 25 MG TAB PO SCH ×2 (08:38→20:41)
[2022-11-06] MEDS: PANTOprazole 40 MG TAB PO SCH (08:38)
[2022-11-06] MEDS: CLOPIDOGREL BISULFATE 75 MG TAB PO SCH (08:38)
[2022-11-06] MEDS: CALCIUM POLYCARBOPHIL 625MG TAB PO SCH (08:38)
[2022-11-06] MEDS: TAMSULOSIN HCL 0.4 MG CAP PO SCH (08:38)
[2022-11-06] MEDS: AMIODARONE 200 MG TAB PO SCH ×2 (08:38→16:28)
[2022-11-06] MEDS: SUCRALFATE 1 GM TAB PO SCH ×4 (08:38→20:41)
--- NOTE | 2022-11-06 08:50 | Electrocardiogram Report ---
Test Reason : Blood Pressure : / mmHG Vent. Rate : 103 BPM Atrial Rate : 103 BPM P-R Int : 124 ms QRS Dur : 084 ms QT Int : 342 ms P-R-T Axes : 082 063 173 degrees QTc Int : 448 ms Sinus tachycardia Diffuse Nonspecific ST and T wave abnormality Abnormal ECG When compared with ECG of 02-NOV-2022 11:13, Vent. rate has increased BY [address] and T wave abnormality now present Confirmed by Kevin Kern ([id number]) on 11/06/2022 8:49:49 AM Referred By: REFERRED SELF Confirmed By:Kevin Kern
--- NOTE | 2022-11-06 12:28 | Discharge Summary ---
Date of Service November 06, 2022 Admission HPI Per Admitting Provider The patient is a 77-year-old male with a past medical history including bladder cancer, acute blood loss anemia, urinary tract infection, history of colon polyps, CAD, stented coronary artery, bilateral ureteral stent placement and hydronephrosis. The patient has had urologic procedures for bladder cancer, and had bilateral ureteral stent placement. He reports that over the past several weeks he has had decreased oral intake, and has had diarrhea on a daily basis. His last oral intake was 3 days ago, he reports that he is lost 20 pounds in the last month. He presented to the emergency department today because he would fell as he was try to get up from the couch due to generalized weakness. Significant laboratories: WBC 11.71, hemoglobin 13.3, hematocrit 39.6, sodium 127, potassium 6.1, chloride 93, bicarb 13, glucose 199, creatinine 10.44, magnesium 3.2, lipase 204. ABG pH 7.37, PCO2 20, PO2 104, bicarb 12 CT scan of abdomen and pelvis shows bilateral hydronephrosis, and presence of bilateral ureteral stents, with bladder wall thickening suggestive of possible cancer Principal Diagnosis KENDRICK, UTI Discharge Exam The patient is awake, alert and oriented 3, well developed and well nourished, normocephalic and atraumatic, lying in bed and in no acute distress. HEENT--PERRL, EOMI, mucous membranes and oropharynx mildly dry Neck--supple. No JVD. No bruits. Thyroid normal, trachea midline, no adenopathy. Heart--normal S1 and S2. No murmurs, rubs or gallops. Lungs--clear bilaterally, no respiratory distress, no accessory muscle use. Abdomen--normal bowel sounds and soft. Mild epigastric and left sided abdominal pain Extremities--no cyanosis or clubbing. No edema. Dermatologic--normal skin turgor, normal color, no abnormal lymph nodes, no rash. Neurologic--cranial nerves II through XII grossly intact. Rheumatologic--normal range of motion. Psychiatric--normal affect. Discharge Data Allergies Allergy/AdvReac Type Severity Reaction Status Date / Time No Known Allergies Allergy Verified 10/30/22 08:23 Consultations 10/30/22 05:45 ED Decision to Admit Stat 10/30/22 06:22 Consult Urology Routine 10/30/22 08:45 Consult Nephrology Routine 11/01/22 10:20 Consult Cardiology Routine Ordered Studies 10/30/22 05:16 CT abd pelvis wo con Stat 10/30/22 05:22 CT head/brain wo con Stat Hospital Course (1) Acute kidney injury: Peak Cr 10.4 now 2.3 FeNa >2% c/w intrinsic renal disease or obstructive process or combination of both chronic diuretic use (thiazide) could have skewed the results ARIEL inhibitor use may also have contributed to acute kidney injury -- lisinopril is on hold CT a/p - despite b/l ureteral stents in place he continues with b/l hydronephrosis but urology recommends ongoing observation as opposed to stent exchange or percutaneous nephrostomy tubes appreciate urology consultation appreciate nephrology consultation fluids have been stopped BMP am (2) Complicated urinary tract infection: 2nd yeast not aguilar albicans while awaiting culture (I called microbiology and culture to be sent out for speciation & sensitivities) placed on diflucan watch QTc while on diflucan + amiodarone (3) PAF (paroxysmal atrial fibrillation): a.fib with RVR last week resolved, spontaneously converted while in a.fib was hypotensive and had symptoms per outpatient cardiology records he has had palpitations over the years - perhaps he has had PAF for some time? consulted cardiology about potential for anti-arrhythmic therapy started amiodarone 200mg BID QTc on most recent 2 EKGs <470msec due to anti-fungal usage will need to watch QTc carefully d/c on Apixaban 5mg BID Follow up with cardiology (4) Elevated troponin: 2nd myocardial demand ischemia in setting of #1 above repeat trop today has trended down no evidence of ACS (5) Hyperkalemia: 2nd #1 resolved (6) Hyponatremia: 2nd to #1 resolved (7) Diabetes mellitus, type 2: resolved a1c 5.6% in 08/2022 a1c 6% this admission metformin - would stop completely at discharge (8) CAD (coronary artery disease): noted follows with Erik TAPIA - [facility] no evidence of recent ACS even in midst of #1 last pm asa/plavix on hold - resumed plavix but since he will be ultimately on DOAC stopped aspirin (9) Bladder cancer: s/p TURBT x 2 per records as well as bilateral ureteral stents with last exchange on 09/24/22 appreciate urology assistance (10) S/P ureteral stent placement: last exchange 09/24/22 despite what appears to be good positioning on CT imaging of the stents he continues with hydronephrosis b/l need for percutaneous nephrostomy tubes unlikely at this time (11) Urinary incontinence: nocturnal 2nd BPH, etc PVR 200cc resumed flomax (12) Hypertension: uncontrolled resume amlodipine 5mg daily resume metoprolol 25mg BID Resume home chlorthalidone, hold lisinopril till evaluated by nephrology (13) Epigastric abdominal pain: suspected gastritis improved with PPI + carafate 1gm QID - change latter to pill form abdominal x-rays largely wnl recent stool BioFire negative Plan DVT proph - heparin drip, standard dosing cont PT, OT rehab post-discharge was initially planned but patient is ADAMANTLY opposed to such at this time I previously counseled him that if he wishes to return home his mobility & strength need to improve needs to sit in chair/get OOB more frequently has been in bed most of the hospitalization left message for Evens Dover - friend - at pt's request yesterday evening Total Time Total Time Spent Total Time Spent (In Minutes): 35 Discharge Plan Discharge Items Patient Disposition: Home - Self-Care Reason For Visit: ACUTE RENAL FAILURE,HYPERKALEMIA Discharge Diagnosis: UTI,Afib Activity: Resume your previous activity Non-emergency contact: Primary Care Provider, Bilingual Medical Receptionist, Cleaner Housekeeping and Urologist Call non-emergency contact if: you have any medication questions Follow-up/Referrals: Delmi Umanzor MD [Primary Care Provider] - Diet: Regular Addtl Attending Provider Instructions: please make appointment to follow up with Urology and nephrology and also cardiology Pending Studies at Discharge: No Stand-Alone Forms: My [employer] Smoking Cessation Medications and DC Order Prescriptions: New fluconazole [Diflucan] 100 mg Tablet 200 mg PO DAILY 7 Days Qty: 14 0RF Eliquis 5 mg Tablet 5 mg PO BID 30 Days Qty: 60 0RF amiodarone 200 mg Tablet 200 mg PO BIDM 30 Days Qty: 60 0RF clopidogrel 75 mg Tablet 75 mg PO QAM 30 Days Qty: 30 0RF Continued chlorthalidone 25 mg tablet 12.5 mg PO BID Qty: 90 3RF metformin 500 mg tablet extended release 24 hr 500 mg PO BID Qty: 180 3RF Rx Instructions: PER PT "SINCE DIET IS MUCH BETTER, DO NOT ALWAYS TAKE SECOND DOSE OF METFORMIN". metoprolol succinate 200 mg tablet extended release 24 hr 200 mg PO BID Qty: 180 3RF clopidogrel 75 mg tablet 75 mg PO QAM Qty: 90 3RF atorvastatin 80 mg tablet 80 mg PO QAM Qty: 90 3RF tamsulosin 0.4 mg capsule 0.4 mg PO DAILY Qty: 30 11RF finasteride 5 mg tablet 5 mg PO DAILY Qty: 30 11RF amlodipine 10 mg tablet 10 mg PO QAM phenazopyridine [Pyridium] 200 mg tablet 200 mg PO Q8H PRN (Reason: pain) Qty: 10 0RF oxycodone-acetaminophen [Percocet] 7.5-325 mg tablet 1 tab PO Q8H PRN (Reason: pain) Qty: 7 0RF oxybutynin chloride 5 mg tablet 5 mg PO Q8H PRN (Reason: bladder spasms) Qty: 20 0RF Discontinued fluconazole [Diflucan] 100 mg tablet 100 mg PO DAILY Qty: 5 0RF aspirin 81 mg tablet,chewable 1 tab PO QAM lisinopril 40 mg tablet 40 mg PO QAM Discharge Orders: Discharge Order (Routine); Ordered 11/06/22 Ordered By: Charlee Hernandez/Other Patient Handouts: Managing Type 2 Diabetes Admission Data Admit Date/Time: 10/30/22 06:18 Attending Provider: Charlee Oh Admit Provider: Johnson Mathews Primary Care Provider: Delmi Umanzor Other Providers: Johnson Mathews ; Faheem Krishnamurthy ; Helga Jasmine ; [facility] ; Hola Easley ; [facility],Home Healthcare ; [facility]Referral [facility] Coding Level of Care Code 16890 INP/OBS DISCH >30 MIN Diagnoses Acute kidney injury N17.9 Complicated urinary tract infection N39.0 PAF (paroxysmal atrial fibrillation) I48.0 Elevated troponin R77.8 Hyperkalemia E87.5 Hyponatremia E87.1 Diabetes mellitus, type 2 E11.9 CAD (coronary artery disease) I25.10 Bladder cancer C67.9 S/P ureteral stent placement Z96.0 Urinary incontinence R32 Hypertension I10 Epigastric abdominal pain R10.13 Time Spent (min) 35
--- NOTE | 2022-11-06 13:04 | Hospitalist Progress Note ---
Date of Service November 06, 2022 Assessment & Plan (1) Acute kidney injury: Plan: Peak Cr 10.4 now 1.9 Probably worsened by poor po intake and home meds (lisinopril and chlorthalidone) CT a/p - despite b/l ureteral stents in place he continues with b/l hydronephrosis but urology recommends ongoing observation as opposed to stent exchange or percutaneous nephrostomy tubes appreciate urology consultation appreciate nephrology consultation fluids have been stopped BMP am (2) Complicated urinary tract infection: Plan: 2nd yeast not aguilar albicans while awaiting culture (I called microbiology and culture to be sent out for speciation & sensitivities) placed on diflucan watch QTc while on diflucan + amiodarone (3) PAF (paroxysmal atrial fibrillation): Plan: a.fib with RVR last week resolved, spontaneously converted while in a.fib was hypotensive and had symptoms per outpatient cardiology records he has had palpitations over the years - perhaps he has had PAF for some time? consulted cardiology about potential for anti-arrhythmic therapy started amiodarone 200mg BID QTc on most recent 2 EKGs <470msec due to anti-fungal usage will need to watch QTc carefully d/c on Apixaban 5mg BID Follow up with cardiology (4) Elevated troponin: Plan: 2nd myocardial demand ischemia in setting of #1 above repeat trop today has trended down no evidence of ACS (5) Hyperkalemia: Plan: 2nd #1 resolved (6) Hyponatremia: Plan: 2nd to #1 resolved (7) Diabetes mellitus, type 2: Plan: resolved a1c 5.6% in 08/2022 a1c 6% this admission metformin - would stop completely at discharge (8) CAD (coronary artery disease): Plan: noted follows with Erik Lazcnao [facility] no evidence of recent ACS even in midst of #1 last pm asa/plavix on hold - resumed plavix but since he will be ultimately on DOAC stopped aspirin (9) Bladder cancer: Plan: s/p TURBT x 2 per records as well as bilateral ureteral stents with last exchange on 09/24/22 appreciate urology assistance (10) S/P ureteral stent placement: Plan: last exchange 09/24/22 despite what appears to be good positioning on CT imaging of the stents he continues with hydronephrosis b/l need for percutaneous nephrostomy tubes unlikely at this time (11) Urinary incontinence: Plan: nocturnal 2nd BPH, etc PVR 200cc resumed flomax (12) Hypertension: Plan: uncontrolled resume amlodipine 5mg daily resume metoprolol 25mg BID Resume home chlorthalidone, hold lisinopril till evaluated by nephrology (13) Epigastric abdominal pain: Plan: suspected gastritis improved with PPI + carafate 1gm QID - change latter to pill form abdominal x-rays largely wnl recent stool BioFire negative Plan rehab post-discharge was initially planned but patient is ADAMANTLY opposed to such at this time I previously counseled him that if he wishes to return home his mobility & strength need to improve needs to sit in chair/get OOB more frequently has been in bed most of the hospitalization Patient initially wanted to go home today, but changed his mind. will d/c him tomorrow Admission and Anticipated Discharge Date Admission Date: October 30, 2022 Subjective patient seen and examined, participating in PT, climbed 20 steps Review of Systems Review of Systems: All systems reviewed are negative, apart from the ones contained in the history. Physical Exam Physical Exam: The patient is awake, alert and oriented 3, well developed and well nourished, normocephalic and atraumatic, lying in bed and in no acute distress. HEENT--PERRL, EOMI, mucous membranes and oropharynx mildly dry Neck--supple. No JVD. No bruits. Thyroid normal, trachea midline, no adenopathy. Heart--normal S1 and S2. No murmurs, rubs or gallops. Lungs--clear bilaterally, no respiratory distress, no accessory muscle use. Abdomen--normal bowel sounds and soft. Mild epigastric and left sided abdominal pain Extremities--no cyanosis or clubbing. No edema. Dermatologic--normal skin turgor, normal color, no abnormal lymph nodes, no rash. Neurologic--cranial nerves II through XII grossly intact. Rheumatologic--normal range of motion. Psychiatric--normal affect. Results & Data Results & Data Vital Signs (Past 12 Hours) Vital Signs Temp Pulse Pulse Resp BP Pulse Ox O2 Del Method 11/06/22 11:35 98.6 F 90 18 101/65 98 Room Air 11/06/22 08:00 85 11/06/22 07:52 98.2 F 64 20 147/67 H 98 Room Air 11/06/22 03:31 98.1 F 58 L 16 136/67 97 Room Air PG Care Time/CCT Total # of Minutes Spent Total Time Spent with Patient: Total time spent is greater than 50% in coordination of care (as documented) at patient's floor/unit and/or counseling patient: Coding Level of Care Code 00242 SUB INP/OBS CARE 2/35MIN Diagnoses Acute kidney injury N17.9 Complicated urinary tract infection N39.0 PAF (paroxysmal atrial fibrillation) I48.0 Elevated troponin R77.8 Hyperkalemia E87.5 Hyponatremia E87.1 Diabetes mellitus, type 2 E11.9 CAD (coronary artery disease) I25.10 Bladder cancer C67.9 S/P ureteral stent placement Z96.0 Urinary incontinence R32 Hypertension I10 Epigastric abdominal pain R10.13 Time Spent (min) 35
[2022-11-07] MEDS: FLUCONAZOLE 100 MG TAB PO SCH (08:53)
[2022-11-07] MEDS: CLOPIDOGREL BISULFATE 75 MG TAB PO SCH (08:53)
[2022-11-07] MEDS: TAMSULOSIN HCL 0.4 MG CAP PO SCH (08:54)
[2022-11-07] MEDS: AMIODARONE 200 MG TAB PO SCH (08:54)
[2022-11-07] MEDS: SUCRALFATE 1 GM TAB PO SCH (08:54)
[2022-11-07] MEDS: CALCIUM POLYCARBOPHIL 625MG TAB PO SCH (08:54)
[2022-11-07] MEDS: APIXABAN 5 MG TABLET PO SCH (08:54)
[2022-11-07] MEDS: PANTOprazole 40 MG TAB PO SCH (08:54)
[2022-11-07] MEDS: POTASSIUM CHLORIDE 10 MEQ TABCR PO SCH (08:54)
[2022-11-07] MEDS: METOPROLOL TARTRATE 25 MG TAB PO SCH (08:55)
[2022-11-07] MEDS: amLODIPine BESYLATE 5 MG TAB PO SCH (08:55)
[2022-11-07] MEDS: ACETAMINOPHEN 500 MG TAB PO SCH (08:55)
--- NOTE | 2022-11-07 12:16 | Discharge Summary ---
Date of Service November 07, 2022 Admission HPI Per Admitting Provider The patient is a 77-year-old male with a past medical history including bladder cancer, acute blood loss anemia, urinary tract infection, history of colon polyps, CAD, stented coronary artery, bilateral ureteral stent placement and hydronephrosis. The patient has had urologic procedures for bladder cancer, and had bilateral ureteral stent placement. He reports that over the past several weeks he has had decreased oral intake, and has had diarrhea on a daily basis. His last oral intake was 3 days ago, he reports that he is lost 20 pounds in the last month. He presented to the emergency department today because he would fell as he was try to get up from the couch due to generalized weakness. Significant laboratories: WBC 11.71, hemoglobin 13.3, hematocrit 39.6, sodium 127, potassium 6.1, chloride 93, bicarb 13, glucose 199, creatinine 10.44, magnesium 3.2, lipase 204. ABG pH 7.37, PCO2 20, PO2 104, bicarb 12 CT scan of abdomen and pelvis shows bilateral hydronephrosis, and presence of bilateral ureteral stents, with bladder wall thickening suggestive of possible cancer Principal Diagnosis UTI, KENDRICK Discharge Exam The patient is awake, alert and oriented 3, well developed and well nourished, normocephalic and atraumatic, lying in bed and in no acute distress. HEENT--PERRL, EOMI, mucous membranes and oropharynx mildly dry Neck--supple. No JVD. No bruits. Thyroid normal, trachea midline, no adenopathy. Heart--normal S1 and S2. No murmurs, rubs or gallops. Lungs--clear bilaterally, no respiratory distress, no accessory muscle use. Abdomen--normal bowel sounds and soft. Mild epigastric and left sided abdominal pain Extremities--no cyanosis or clubbing. No edema. Dermatologic--normal skin turgor, normal color, no abnormal lymph nodes, no rash. Neurologic--cranial nerves II through XII grossly intact. Rheumatologic--normal range of motion. Psychiatric--normal affect. Discharge Data Allergies Allergy/AdvReac Type Severity Reaction Status Date / Time No Known Allergies Allergy Verified 10/30/22 08:23 Consultations 10/30/22 05:45 ED Decision to Admit Stat 10/30/22 06:22 Consult Urology Routine 10/30/22 08:45 Consult Nephrology Routine 11/01/22 10:20 Consult Cardiology Routine Ordered Studies 10/30/22 05:16 CT abd pelvis wo con Stat 10/30/22 05:22 CT head/brain wo con Stat Hospital Course (1) Acute kidney injury: Peak Cr 10.4 now 1.9 Probably worsened by poor po intake and home meds (lisinopril and ch lorthalidone) CT a/p - despite b/l ureteral stents in place he continues with b/l hydronephrosis but urology recommends ongoing observation as opposed to stent exchange or percutaneous nephrostomy tubes appreciate urology consultation appreciate nephrology consultation fluids have been stopped BMP am (2) Complicated urinary tract infection: 2nd yeast not aguilar albicans while awaiting culture (I called microbiology and culture to be sent out for speciation & sensitivities) placed on diflucan watch QTc while on diflucan + amiodarone (3) PAF (paroxysmal atrial fibrillation): a.fib with RVR last week resolved, spontaneously converted while in a.fib was hypotensive and had symptoms per outpatient cardiology records he has had palpitations over the years - perhaps he has had PAF for some time? consulted cardiology about potential for anti-arrhythmic therapy started amiodarone 200mg BID QTc on most recent 2 EKGs <470msec due to anti-fungal usage will need to watch QTc carefully d/c on Apixaban 5mg BID Follow up with cardiology (4) Elevated troponin: 2nd myocardial demand ischemia in setting of #1 above repeat trop today has trended down no evidence of ACS (5) Hyperkalemia: 2nd #1 resolved (6) Hyponatremia: 2nd to #1 resolved (7) Diabetes mellitus, type 2: resolved a1c 5.6% in 08/2022 a1c 6% this admission metformin - would stop completely at discharge (8) CAD (coronary artery disease): noted follows with Erik [facility] Cardiology no evidence of recent ACS even in midst of #1 last pm asa/plavix on hold - resumed plavix but since he will be ultimately on DOAC sto pped aspirin (9) Bladder cancer: s/p TURBT x 2 per records as well as bilateral ureteral stents with last exchange on 09/24/22 appreciate urology assistance (10) S/P ureteral stent placement: last exchange 09/24/22 despite what appears to be good positioning on CT imaging of the stents he continues with hydronephrosis b/l need for percutaneous nephrostomy tubes unlikely at this time (11) Urinary incontinence: nocturnal 2nd BPH, etc PVR 200cc resumed flomax (12) Hypertension: uncontrolled resume amlodipine 5mg daily resume metoprolol 25mg BID Resume home chlorthalidone, hold lisinopril till evaluated by nephrology (13) Epigastric abdominal pain: suspected gastritis improved with PPI + carafate 1gm QID - change latter to pill form abdominal x-rays largely wnl recent stool BioFire negative Plan d/c home Total Time Total Time Spent Total Time Spent (In Minutes): 35 Discharge Plan Discharge Items Patient Disposition: Home - Self-Care Reason For Visit: ACUTE RENAL FAILURE,HYPERKALEMIA Discharge Diagnosis: UTI,Afib Activity: Resume your previous activity Non-emergency contact: Primary Care Provider, Auto Fleet Maintenance Manager, Shipping Clerk/Admin and Urologist Call non-emergency contact if: you have any medication questions Follow-up/Referrals: Erik Beltran PA-C [Physician Auctioneer Tobacco] - 11/15/22 1:00 pm Helga Jasmine MD [Physician] - 11/19/22 11:20 am Zully Kendall CRNP [Nurse Practitioner] - (Marianela from the urology office will call you with an appointment. ) Delmi Umanzor MD [Primary Care Provider] - 11/16/22 9:00 am (Scheduled with a PA in Dr Umanzor's office) Diet: Regular Addtl Attending Provider Instructions: please make appointment to follow up with Urology and nephrology and also cardiology Pending Studies at Discharge: No Stand-Alone Forms: My [facility] [place], Smoking Cessation Medications and DC Order Prescriptions: New fluconazole [Diflucan] 100 mg Tablet 200 mg PO DAILY 7 Days Qty: 14 0RF Eliquis 5 mg Tablet 5 mg PO BID 30 Days Qty: 60 0RF amiodarone 200 mg Tablet 200 mg PO BIDM 30 Days Qty: 60 0RF clopidogrel 75 mg Tablet 75 mg PO QAM 30 Days Qty: 30 0RF Continued chlorthalidone 25 mg tablet 12.5 mg PO BID Qty: 90 3RF metformin 500 mg tablet extended release 24 hr 500 mg PO BID Qty: 180 3RF Rx Instructions: PER PT "SINCE DIET IS MUCH BETTER, DO NOT ALWAYS TAKE SECOND DOSE OF METFORMIN". metoprolol succinate 200 mg tablet extended release 24 hr 200 mg PO BID Qty: 180 3RF clopidogrel 75 mg tablet 75 mg PO QAM Qty: 90 3RF atorvastatin 80 mg tablet 80 mg PO QAM Qty: 90 3RF tamsulosin 0.4 mg capsule 0.4 mg PO DAILY Qty: 30 11RF finasteride 5 mg tablet 5 mg PO DAILY Qty: 30 11RF amlodipine 10 mg tablet 10 mg PO QAM phenazopyridine [Pyridium] 200 mg tablet 200 mg PO Q8H PRN (Reason: pain) Qty: 10 0RF oxycodone-acetaminophen [Percocet] 7.5-325 mg tablet 1 tab PO Q8H PRN (Reason: pain) Qty: 7 0RF oxybutynin chloride 5 mg tablet 5 mg PO Q8H PRN (Reason: bladder spasms) Qty: 20 0RF Discontinued fluconazole [Diflucan] 100 mg tablet 100 mg PO DAILY Qty: 5 0RF aspirin 81 mg tablet,chewable 1 tab PO QAM lisinopril 40 mg tablet 40 mg PO QAM Discharge Orders: Discharge Order (Routine); Ordered 11/07/22 Ordered By: Charlee Hernandez/Other Patient Handouts: Managing Type 2 Diabetes Admission Data Admit Date/Time: 10/30/22 06:18 Attending Provider: Charlee Oh Admit Provider: Johnson Mathews Primary Care Provider: Delmi Umanzor Other Providers: Johnson Mathews ; Faheem Krishnamurthy ; Helga Jasmine ; [facility] ; Hola Easley ; [facility],Home Healthcare ; [facility],Referral Center Other Interventions: Discharge Summary Assessment (RN) Last Done: 11/07/22 11:51 Coding Level of Care Code 02951 INP/OBS DISCH >30 MIN Diagnoses Acute kidney injury N17.9 Complicated urinary tract infection N39.0 PAF (paroxysmal atrial fibrillation) I48.0 Elevated troponin R77.8 Hyperkalemia E87.5 Hyponatremia E87.1 Diabetes mellitus, type 2 E11.9 CAD (coronary artery disease) I25.10 Bladder cancer C67.9 S/P ureteral stent placement Z96.0 Urinary incontinence R32 Hypertension I10 Epigastric abdominal pain R10.13 Time Spent (min) 35
== END 2022-11-07 12:34 | disposition home or self-care (01) | DRG 683 ==
LOC: ED 03:45 → 1E 06:18 → SUATTDRO 06:18 → 1E 08:30 → 2S 10-31 06:47

== ENCOUNTER 2022-11-26 00:03 | Inpatient (IN) ==
[2022-11-26 00:40] LABS: Basophils # (auto) 0.05 K/uL (0-0.2); Basophils % (auto) 0.3 %; Eosinophils # (auto) 0.02 K/uL (0-0.50); Eosinophils % (auto) 0.1 %; Hematocrit (blood only) 37.3 % (42.0-52.0); Hemoglobin 12.6 g/dl (14.0-18.0); Immature Granulocytes # (auto) 0.08 K/uL (0.01-0.20); Immature Granulocytes % (auto) 0.5 %; Lymphocytes # (auto) 3.48 K/uL (1.2-3.4); Lymphocytes % (auto) 21.7 %; Mean Corpuscular Hemoglobin 27.8 pg (25.0-34.0); Mean Corpuscular Hgb Conc 33.8 g/dL (32.0-36.0); Mean Corpuscular Volume 82.3 fL (80.0-100.0); Mean Platelet Volume 10.8 fL (9.4-12.4); Monocytes % (auto) 3.1 %; Neutrophils # (auto) 11.94 K/uL (1.40-6.50); Neutrophils % (auto) 74.3 %; Platelet Count 331 K/uL (130-400); RDW Coefficient of Variation 16.9 % (11.5-14.5); RDW Standard Deviation 50.4 fL (36.4-46.3); Red Blood Count 4.53 M/uL (4.70-6.10); White Blood Count 16.07 K/ul (4.8-10.8)
[2022-11-26] MEDS ORDERED: SODIUM CHLORIDE 0.9% 500 ML IV ONE (00:52)
--- NOTE | 2022-11-26 01:01 | Emergency Department Note ---
Impression & Plan Acute renal failure, Acute hyperkalemia, Chest tightness Admit to the [facility] ED Provider Note NAME: RAKEL DELA CRUZ AGE: 77 SEX: M ARRIVES VIA: Ambulance INFORMANT: Patient ED PROVIDER(S): Juhi Sherwood DO CHIEF COMPLAINT: Chest pressure PLAN: Disposition: Admit to the [facility] Condition: Critical MEDICAL DECISION MAKING: This is a 77-year-old male patient who presents to the emergency department with chest pressure and dehydration. Patient states that he has been unable to get out of bed and is not eating or drinking. He has a history of bladder cancer. He was recently discharged from the hospital and was offered rehab at [facility] but declined. He has reconsidered that offer at this time because he is so weak and is unable to care for himself. Patient was bolused with IV normal saline solution. A second IV lock was initiated once he was noted to be in significant renal failure with a creatinine of 12.7 and a BUN of 127. Potassium was elevated at 5.9. The patient was given a dose of IV sodium bicarb. I reviewed the patient's previous admission to the hospital in October where he had similar evidence of acute renal failure. The patient was seen by nephrology at that time and his renal insult was managed with IV crystalloid therapy. I discussed the case with the [facility] and they will evaluate for further inpatient care. The patient was ordered have a CT scan of the abdomen/pelvis to further evaluate his ureteral stents. Patient's blood pressure responded nicely to the IV normal saline solution. Patient had a mild leukocytosis with a white blood cell count of 16. Hemoglobin was stable at 12.6. Troponin was only minimally elevated at 21.6 and EKG was unremarkable. Triage Nursing notes reviewed and agree with them. External medical records reviewed including previous admission Vital Signs: reviewed and remarkable for hypotension and bradycardia Differential diagnosis: Dehydration, hypoglycemia, ER treatment provided: Cardiac monitoring Twelve-lead EKG IV normal saline bolus IV sodium bicarb Second normal saline bolus Diagnostics interpreted by me: ECG: Normal sinus rhythm at a rate of [address] segment elevation or signs of ischemia. There is no ectopy Cardiac Monitoring: Sinus bradycardia at a rate of 58 Laboratory studies: See below Imaging studies: As per my independent interpretation Portable chest x-ray no cardiomegaly or pulmonary infiltrates or consolidations noted CT scan of the abdomen/pelvis: As per stat rad-see report HPI: 77/M arrives for evaluation of chest tightness. Patient developed chest tightness earlier today. He is living in a trailer with no air conditioning and has developed extreme weakness. He is unable to get himself out of bed. He has not been eating or drinking. Patient recently was discharged from the hospital. Upon discharge he was offered to go to [facility] for rehab but declined because he had bills to pay. He now would like to go for rehab PAST MEDICAL HISTORY:See Below PAST SURGICAL HISTORY:See Below FAMILY HISTORY:See Below SOCIAL HISTORY:See Below HOME MEDICATIONS:See list ALLERGIES:None VITALS:See Below PHYSICAL EXAMINATION: HEENT: Head - normocephalic and atraumatic. Pupils are equal, round, and reactive to light. Extraocular eye muscles are intact, and sclera are an icteric. Nose - moist nasal mucosa without discharge. Mouth - moist buccal mucosa. Oropharynx is nonerythematous and there is no tonsillar exudate or edema noted. Neck: Supple; no cervical lymphadenopathy or nuchal rigidity. There was no JVD Heart: Bradycardic rate with a regular rhythm there is a normal S1 and S2 with no murmurs, clicks, or gallops appreciated. Lungs: Clear to auscultation bilaterally with no wheezes, rales, or rhonchi. Abdomen: Soft, completely nontender, nondistended, with good bowel sounds. There are no palpable pulsatile masses or hepatosplenomegaly. There is no g uarding, rigidity, or rebound noted. Extremities: No evidence of cyanosis, clubbing, or edema. There are easily palpable peripheral pulses. Skin: Extremely dry with poor turgor. ED COURSE: Times/Reassessments: 0020: Patient was evaluated in room C6. Order was placed for continuous cardiac monitoring. The patient is in a sinus bradycardia at a rate of 58. A twelve-lead EKG was obtained as described above. An IV lock was initiated and the patient was bolused with IV normal saline solution. A portable chest x-ray was performed A second IV lock was initiated and additional IV fluids were ordered. Patient was ordered sodium bicarb bolus. Patient went for CT scan of the abdomen/pelvis. I have personally spent greater than 50 minutes of critical care time in the direct management of this patient. This includes bedside care, interpretation of diagnostic studies, and testing, discussion with consultants, patient, and family members, and other required patient management activities. This 50 minutes is in excess of all separately billable procedures. Juhi Sherwood DO Past Med/Surg History Medical History ARF (acute renal failure) Benign enlargement of prostate Bladder cancer newly diagnosed 08/2022. CAD (coronary artery disease) "Multi-Vessel CAD s/p Ostial and Proximal LAD NEVA x 2 and OM1 NEVA 07/01/2018 (with residual borderline D2 stenosis, OM2 stenosis, RCA/PDA stenoses which are felt amenable to complex PCI" follows with [facility] Diabetes mellitus, type 2 NIDDM Dyslipidemia History of colon polyps Hypertension Low back pain Multi-vessel coronary artery stenosis Myocardial Infarction ~3 years ago. follows with Erik Beltran. Tubular adenoma of colon Surgical History H/O colonoscopy 08/2016, repeat 5 yrs History of cardiac cath ~3 years ago, "failed stress test, needed cath", [place] History of open reduction and internal fixation (ORIF) procedure Lt. Femur Stented coronary artery ~3 years ago, [facility], following cath at [facility], x1 stent (resolut summer) placed; now f/u Luis Manuel Beltran PA-C, [facility] Cardio. 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 Required: No Beliefs That Will Affect Care: None marital status: Single Current Living Situation: Alone current occupational status: retired How many Children do You have: 0 Feels Safe at Home: Yes Childhood Exposure to Second-Hand Smoke: Yes caffeine: Yes Dental Care, Regularly: Yes Physical Activity Frequency: Daily Seatbelt Use: always Sunscreen Use: Yes Assistive Devices: Walker and Other Allergies Allergies Allergy/AdvReac Type Severity Reaction Status Date / Time No Known Allergies Allergy Verified 10/30/22 08:23 Home Meds Home Medications Medication Instructions Recorded Confirmed amlodipine 10 mg tablet 10 mg PO QAM 09/14/22 11/26/22 Previous Rx's Medication Instructions Recorded chlorthalidone 25 mg tablet 12.5 mg PO BID #90 tabs 10/24/21 metformin 500 mg tablet,extended 500 mg PO BID #180 tabs 03/19/22 release 24 hr metoprolol succinate 200 mg 200 mg PO BID #180 tabs 06/13/22 tablet,extended release 24 hr atorvastatin 80 mg tablet 80 mg PO QAM #90 tabs 07/09/22 oxybutynin chloride 5 mg tablet 5 mg PO Q8H PRN bladder spasms #20 09/24/22 tabs finasteride 5 mg tablet 5 mg PO DAILY #30 tabs 10/02/22 amiodarone 200 mg tablet 200 mg PO BIDM 30 days #60 tabs 11/06/22 apixaban 5 mg tablet (Eliquis) 5 mg PO BID 30 days #60 tabs 11/06/22 clopidogrel 75 mg tablet 75 mg PO QAM 30 days #30 tabs 11/06/22 Results & Data (ED) Vital Signs Vital Signs - 24 hr 11/26/22 00:10 11/26/22 00:08 11/26/22 00:08 Temperature 36.4 C L Temperature Source Axillary Pulse Rate 95 H 60 Pulse Rate from SpO2 Sensor Respiratory Rate 16 Respiratory Effort / Characteristics Non-Labored Respiratory Depth Normal Blood Pressure 99/50 L Blood Pressure Mean 66 Pulse Oximetry 98 98 Oxygen Delivery Method Room Air Nasal Cannula Sepsis Recent Fever Within 48 Hours No Sepsis New/Unexplained Change in Mental Status No Sepsis Action Taken by Nursing No Action Required 11/26/22 00:08 11/26/22 00:10 11/26/22 00:30 Temperature Temperature Source Pulse Rate 94 H 58 L Pulse Rate from SpO2 Sensor 60 58 L Respiratory Rate 16 25 H 20 Respiratory Effort / Characteristics Respiratory Depth Blood Pressure 86/53 L Blood Pressure Mean 64 Pulse Oximetry 99 97 Oxygen Delivery Method Sepsis Recent Fever Within 48 Hours Sepsis New/Unexplained Change in Mental Status Sepsis Action Taken by Nursing 11/26/22 00:48 11/26/22 00:48 11/26/22 01:00 Temperature Temperature Source Pulse Rate 59 L Pulse Rate from SpO2 Sensor 62 Respiratory Rate 20 Respiratory Effort / Characteristics Respiratory Depth Blood Pressure 99/52 L 96/54 L Blood Pressure Mean 63 60 Pulse Oximetry 99 Oxygen Delivery Method Sepsis Recent Fever Within 48 Hours Sepsis New/Unexplained Change in Mental Status Sepsis Action Taken by Nursing 11/26/22 01:00 11/26/22 01:30 11/26/22 01:49 Temperature Temperature Source Pulse Rate 57 L 58 L 56 L Pulse Rate from SpO2 Sensor 57 L 56 L Respiratory Rate 22 17 23 Respiratory Effort / Characteristics Respiratory Depth Blood Pressure Blood Pressure Mean Pulse Oximetry 98 100 Oxygen Delivery Method Sepsis Recent Fever Within 48 Hours Sepsis New/Unexplained Change in Mental Status Sepsis Action Taken by Nursing 11/26/22 01:49 11/26/22 02:00 11/26/22 02:00 Temperature Temperature Source Pulse Rate 57 L Pulse Rate from SpO2 Sensor 58 L Respiratory Rate 17 Respiratory Effort / Characteristics Respiratory Depth Blood Pressure 106/53 L 97/52 L Blood Pressure Mean 70 60 Pulse Oximetry 94 Oxygen Delivery Method Sepsis Recent Fever Within 48 Hours Sepsis New/Unexplained Change in Mental Status Sepsis Action Taken by Nursing 11/26/22 02:30 11/26/22 02:30 11/26/22 04:28 Temperature Temperature Source Pulse Rate 56 L 56 L Pulse Rate from SpO2 Sensor 55 L Respiratory Rate 20 Respiratory Effort / Characteristics Respiratory Depth Blood Pressure 93/50 L Blood Pressure Mean 54 Pulse Oximetry 99 Oxygen Delivery Method Sepsis Recent Fever Within 48 Hours Sepsis New/Unexplained Change in Mental Status Sepsis Action Taken by Nursing 11/26/22 03:00 11/26/22 03:00 11/26/22 03:30 Temperature Temperature Source Pulse Rate 96 H Pulse Rate from SpO2 Sensor 56 L Respiratory Rate 15 Respiratory Effort / Characteristics Respiratory Depth Blood Pressure 122/58 L 105/54 L Blood Pressure Mean 80 70 Pulse Oximetry 99 Oxygen Delivery Method Sepsis Recent Fever Within 48 Hours Sepsis New/Unexplained Change in Mental Status Sepsis Action Taken by Nursing 11/26/22 03:30 11/26/22 04:00 11/26/22 04:00 Temperature Temperature Source Pulse Rate 89 59 L Pulse Rate from SpO2 Sensor 54 L 58 L Respiratory Rate 19 18 Respiratory Effort / Characteristics Respiratory Depth Blood Pressure 112/70 Blood Pressure Mean 80 Pulse Oximetry 96 98 Oxygen Delivery Method Sepsis Recent Fever Within 48 Hours Sepsis New/Unexplained Change in Mental Status Sepsis Action Taken by Nursing 11/26/22 04:30 11/26/22 04:30 11/26/22 05:00 Temperature Temperature Source Pulse Rate 56 L Pulse Rate from SpO2 Sensor 55 L Respiratory Rate 20 Respiratory Effort / Characteristics Respiratory Depth Blood Pressure 105/55 L 103/49 L Blood Pressure Mean 64 73 Pulse Oximetry 98 Oxygen Delivery Method Sepsis Recent Fever Within 48 Hours Sepsis New/Unexplained Change in Mental Status Sepsis Action Taken by Nursing 11/26/22 05:00 Temperature Temperature Source Pulse Rate 57 L Pulse Rate from SpO2 Sensor 57 L Respiratory Rate 18 Respiratory Effort / Characteristics Respiratory Depth Blood Pressure Blood Pressure Mean Pulse Oximetry 98 Oxygen Delivery Method Sepsis Recent Fever Within 48 Hours Sepsis New/Unexplained Change in Mental Status Sepsis Action Taken by Nursing Laboratory Data 11/26/22 00:09 11/26/22 00:09 Lab Results 11/26/22 11/26/22 11/26/22 Range/Units 00:09 00:09 02:22 WBC 16.07 H (4.8-10.8) K/ul RBC 4.53 L (4.70-6.10) M/uL Hgb 12.6 L (14.0-18.0) g/dl Hct 37.3 L (42.0-52.0) % MCV 82.3 (80.0-100.0) fL MCH 27.8 (25.0-34.0) pg MCHC 33.8 (32.0-36.0) g/dL RDW Std Deviation 50.4 H (36.4-46.3) fL RDW Coeff of Elsi 16.9 H (11.5-14.5) % Plt Count 331 (130-400) K/uL MPV 10.8 (9.4-12.4) fL Immature Gran % (Auto) 0.5 % Neut % (Auto) 74.3 % Lymph % (Auto) 21.7 % [place] % (Auto) 3.1 % Eos % (Auto) 0.1 % Baso % (Auto) 0.3 % Neut # (Auto) 11.94 H (1.40-6.50) K/uL Lymph # (Auto) 3.48 H (1.2-3.4) K/uL [place] # (Auto) 0.50 (0.11-0.59) K/uL Eos # (Auto) 0.02 (0-0.50) K/uL Baso # (Auto) 0.05 (0-0.2) K/uL Immature Gran # (Auto) 0.08 (0.01-0.20) K/uL VBG pH (7.36-7.41) VBG pCO2 (38-50) mmHg VBG pO2 mmHg VBG HCO3 mmol/L VBG O2 Saturation % VBG Base Excess mEq/L Sodium 132 L (136-145) mmol/L Potassium 5.9 H (3.5-5.1) mmol/L Chloride 97 L (98-107) mmol/L Carbon Dioxide 11 L (21-32) mmol/L Anion Gap 24 H (3-11) BUN 127 H (6-23) mg/dl Creatinine 12.75 H* (0.6-1.4) mg/dl Est Cr Clr Drug Dosing 4.2 ml/min Est GFR ( Amer) 3.9 ml/min Est GFR (Non-Af Amer) 3.4 ml/min BUN/Creatinine Ratio 10.0 (10-20) Glucose 82 (70-99(Fasting)) mg/dl Lactate 1.3 (0.4-2.0) mmol/L Calcium 8.9 (8.6-10.3) mg/dl Total Bilirubin 0.4 (0.2-1.0) mg/dl AST 10 L (13-39) U/L ALT 6 L (7-52) U/L Alkaline Phosphatase 92 (34-104) U/L Total Creatine Kinase 52 (30-223) U/L Troponin I High Sens 21.6 H (0-20) pg/ml Total Protein 8.3 (6.0-8.3) gm/dl Albumin 3.7 (3.4-5.0) gm/dl Globulin 4.6 H (2.5-4.0) gm/dl Albumin/Globulin Ratio 0.8 L (0.9-2) Lipase 242 H (11-82) U/L Urine Color Urine Appearance (Clear) Urine pH (4.5-7.5) Ur Specific [place] (1.000-1.030) Urine Protein (Negative) Urine Glucose (UA) (Negative) Urine Ketones (Negative) Urine Blood (Negative) Urine Nitrite (Negative) Urine Bilirubin (Negative) Urine Urobilinogen (Negative) Ur Leukocyte Esterase (Negative) Urine WBC (Auto) (0-5) /hpf Urine RBC (Auto) (0-4) /hpf U Hyaline Cast (Auto) (0-5) /lpf U Epithel Cells (Auto) (0-5) /lpf Urine Bacteria (Auto) (Negative) Urine Yeast (None Prsent) Ur Random Creatinine mg/dl Ur Random Sodium mmol/L SARS-CoV-2, RNA, NAAT (NEGATIVE) 11/26/22 11/26/22 11/26/22 Range/Units 02:22 03:02 03:02 WBC (4.8-10.8) K/ul RBC (4.70-6.10) M/uL Hgb (14.0-18.0) g/dl Hct (42.0-52.0) % MCV (80.0-100.0) fL MCH (25.0-34.0) pg MCHC (32.0-36.0) g/dL RDW Std Deviation (36.4-46.3) fL RDW Coeff of Elsi (11.5-14.5) % Plt Count (130-400) K/uL MPV (9.4-12.4) fL Immature Gran % (Auto) % Neut % (Auto) % Lymph % (Auto) % [place] % (Auto) % Eos % (Auto) % Baso % (Auto) % Neut # (Auto) (1.40-6.50) K/uL Lymph # (Auto) (1.2-3.4) K/uL [place] # (Auto) (0.11-0.59) K/uL Eos # (Auto) (0-0.50) K/uL Baso # (Auto) (0-0.2) K/uL Immature Gran # (Auto) (0.01-0.20) K/uL VBG pH 7.23 L (7.36-7.41) VBG pCO2 34 L (38-50) mmHg VBG pO2 29 mmHg VBG HCO3 14 mmol/L VBG O2 Saturation < 60.0 % VBG Base Excess -12.3 mEq/L Sodium (136-145) mmol/L Potassium (3.5-5.1) mmol/L Chloride (98-107) mmol/L Carbon Dioxide (21-32) mmol/L Anion Gap (3-11) BUN (6-23) mg/dl Creatinine (0.6-1.4) mg/dl Est Cr Clr Drug Dosing ml/min Est GFR ( Amer) ml/min Est GFR (Non-Af Amer) ml/min BUN/Creatinine Ratio (10-20) Glucose (70-99(Fasting)) mg/dl Lactate (0.4-2.0) mmol/L Calcium (8.6-10.3) mg/dl Total Bilirubin (0.2-1.0) mg/dl AST (13-39) U/L ALT (7-52) U/L Alkaline Phosphatase (34-104) U/L Total Creatine Kinase (30-223) U/L Troponin I High Sens (0-20) pg/ml Total Protein (6.0-8.3) gm/dl Albumin (3.4-5.0) gm/dl Globulin (2.5-4.0) gm/dl Albumin/Globulin Ratio (0.9-2) Lipase (11-82) U/L Urine Color Dark Yellow Urine Appearance Turbid A (Clear) Urine pH 5.5 (4.5-7.5) Ur Specific [place] 1.014 (1.000-1.030) Urine Protein 3+ H (Negative) Urine Glucose (UA) Negative (Negative) Urine Ketones Trace H (Negative) Urine Blood 3+ H (Negative) Urine Nitrite Negative (Negative) Urine Bilirubin Negative (Negative) Urine Urobilinogen Negative (Negative) Ur Leukocyte Esterase 3+ H (Negative) Urine WBC (Auto) >30 H (0-5) /hpf Urine RBC (Auto) 5-10 H (0-4) /hpf U Hyaline Cast (Auto) 0 (0-5) /lpf U Epithel Cells (Auto) >30 H (0-5) /lpf Urine Bacteria (Auto) Negative (Negative) Urine Yeast Present A (None Prsent) Ur Random Creatinine 104.7 mg/dl Ur Random Sodium 101 mmol/L SARS-CoV-2, RNA, NAAT (NEGATIVE) 11/26/22 Range/Units 04:38 WBC (4.8-10.8) K/ul RBC (4.70-6.10) M/uL Hgb (14.0-18.0) g/dl Hct (42.0-52.0) % MCV (80.0-100.0) fL MCH (25.0-34.0) pg MCHC (32.0-36.0) g/dL RDW Std Deviation (36.4-46.3) fL RDW Coeff of Elsi (11.5-14.5) % Plt Count (130-400) K/uL MPV (9.4-12.4) fL Immature Gran % (Auto) % Neut % (Auto) % Lymph % (Auto) % [place] % (Auto) % Eos % (Auto) % Baso % (Auto) % Neut # (Auto) (1.40-6.50) K/uL Lymph # (Auto) (1.2-3.4) K/uL [place] # (Auto) (0.11-0.59) K/uL Eos # (Auto) (0-0.50) K/uL Baso # (Auto) (0-0.2) K/uL Immature Gran # (Auto) (0.01-0.20) K/uL VBG pH (7.36-7.41) VBG pCO2 (38-50) mmHg VBG pO2 mmHg VBG HCO3 mmol/L VBG O2 Saturation % VBG Base Excess mEq/L Sodium (136-145) mmol/L Potassium (3.5-5.1) mmol/L Chloride (98-107) mmol/L Carbon Dioxide (21-32) mmol/L Anion Gap (3-11) BUN (6-23) mg/dl Creatinine (0.6-1.4) mg/dl Est Cr Clr Drug Dosing ml/min Est GFR ( Amer) ml/min Est GFR (Non-Af Amer) ml/min BUN/Creatinine Ratio (10-20) Glucose (70-99(Fasting)) mg/dl Lactate (0.4-2.0) mmol/L Calcium (8.6-10.3) mg/dl Total Bilirubin (0.2-1.0) mg/dl AST (13-39) U/L ALT (7-52) U/L Alkaline Phosphatase (34-104) U/L Total Creatine Kinase (30-223) U/L Troponin I High Sens (0-20) pg/ml Total Protein (6.0-8.3) gm/dl Albumin (3.4-5.0) gm/dl Globulin (2.5-4.0) gm/dl Albumin/Globulin Ratio (0.9-2) Lipase (11-82) U/L Urine Color Urine Appearance (Clear) Urine pH (4.5-7.5) Ur Specific [place] (1.000-1.030) Urine Protein (Negative) Urine Glucose (UA) (Negative) Urine Ketones (Negative) Urine Blood (Negative) Urine Nitrite (Negative) Urine Bilirubin (Negative) Urine Urobilinogen (Negative) Ur Leukocyte Esterase (Negative) Urine WBC (Auto) (0-5) /hpf Urine RBC (Auto) (0-4) /hpf U Hyaline Cast (Auto) (0-5) /lpf U Epithel Cells (Auto) (0-5) /lpf Urine Bacteria (Auto) (Negative) Urine Yeast (None Prsent) Ur Random Creatinine mg/dl Ur Random Sodium mmol/L SARS-CoV-2, RNA, NAAT NEGATIVE (NEGATIVE) Administered Medications Discontinued Medications Sodium Chloride (Nss) 500 mls @ 999 mls/hr IV .Q31M ONE Stop: 11/26/22 01:22 Last Infusion: 11/26/22 01:54 Dose: 0 mls/hr Documented By: Admin: 11/26/22 00:57 Dose: 999 mls/hr Documented By: BHARGAV Calcium Gluconate () 1,000 mg in 60 mls @ 240 mls/hr IV NOW STA Stop: 11/26/22 02:04 Last Infusion: 11/26/22 02:32 Dose: 0 mls/hr Documented By: Admin: 11/26/22 02:10 Dose: 240 mls/hr Documented By: BHARGAV Sodium Bicarbonate (Sodium Bicarb 8.4% Inj 50 Meq/50 Ml Syr) 59 meq 1 meq/kg (59 meq) IV ONCE STA Stop: 11/26/22 01:40 Last Admin: 11/26/22 01:48 Dose: 59 meq Documented By: BHARGAV Imaging Data Radiologist's Impression: Abdomen/Pelvis CT 11/26/22 01:39 Exam(s): CT ABDOMEN + PELVIS Without Contrast EXAM: CT Abdomen and Pelvis Without Intravenous Contrast CLINICAL HISTORY: Reason for exam: eval ureteral stents. TECHNIQUE: Axial computed tomography images of the abdomen and pelvis without intravenous contrast. CTDI is 11.01 mGy and DLP is 536.42 mGy-cm. Automated exposure control was utilized for the study. A dose lowering technique was utilized adhering to the principles of ALARA. COMPARISON: October 30, 2022 FINDINGS: Lung bases: Unremarkable. No mass. No consolidation. ABDOMEN: Liver: Unremarkable. Gallbladder and bile ducts: Sludge in a nondilated gallbladder. No surrounding inflammation or biliary duct dilation is seen. No calcified stones. Pancreas: Unremarkable. No ductal dilation. Spleen: Unremarkable. No splenomegaly. Adrenals: Unremarkable. No mass. Kidneys and ureters: There are bilateral double-J ureteral stents in standard position. There is moderate bilateral hydronephrosis, similar to previous. Consider stent dysfunction and/or chronic bladder spasm. Stomach and bowel: Unremarkable. No obstruction. No mucosal thickening. PELVIS: Appendix: No findings to suggest acute appendicitis. Bladder: There is bladder wall thickening measuring up to 10 mm, similar to previous which may represent chronic spasm, cystitis, less likely neoplasm. Correlate with history. No stones. Reproductive: Unremarkable as visualized. ABDOMEN and PELVIS: Intraperitoneal space: Unremarkable. No free air. No significant fluid collection. Bones/joints: Moderate multilevel degenerative changes throughout the spine. No acute fracture or subluxation is seen. Soft tissues: Unremarkable. Vasculature: The abdominal aorta is severely calcified but nondilated. Lymph nodes: Unremarkable. No enlarged lymph nodes. IMPRESSION: 1. There are bilateral double-J ureteral stents in standard position. There is moderate bilateral hydronephrosis, similar to previous. Consider stent dysfunction and/or chronic bladder spasm. 2. There is bladder wall thickening measuring up to 10 mm, similar to previous which may represent chronic spasm, cystitis, less likely neoplasm. Correlate with history. Electronically signed by: Juan Manuel Goldsmith MD 11/26/22 05:01 AM Discharge Plan Visit Data Chief Complaint: Chest Pain Stated Complaint: Chest Tightness, Hypotension, Dehydration ED Provider: Juhi Sherwood Discharge Problem: Acute renal failure, Acute hyperkalemia, Chest tightness Forms Stand Alone Forms: [employer] [facility] Vital Records Prescriptions Prescriptions: No Action chlorthalidone 25 mg tablet 12.5 mg PO BID Qty: 90 3RF metformin 500 mg tablet extended release 24 hr 500 mg PO BID Qty: 180 3RF Rx Instructions: PER PT "SINCE DIET IS MUCH BETTER, DO NOT ALWAYS TAKE SECOND DOSE OF METFORMIN". metoprolol succinate 200 mg tablet extended release 24 hr 200 mg PO BID Qty: 180 3RF atorvastatin 80 mg tablet 80 mg PO QAM Qty: 90 3RF finasteride 5 mg tablet 5 mg PO DAILY Qty: 30 11RF amlodipine 10 mg tablet 10 mg PO QAM oxybutynin chloride 5 mg tablet 5 mg PO Q8H PRN (Reason: bladder spasms) Qty: 20 0RF Eliquis 5 mg Tablet 5 mg PO BID 30 Days Qty: 60 0RF amiodarone 200 mg Tablet 200 mg PO BIDM 30 Days Qty: 60 0RF clopidogrel 75 mg Tablet 75 mg PO QAM 30 Days Qty: 30 0RF Referrals Referrals: Delmi Umanzor MD [Primary Care Provider] -
[2022-11-26 01:02] LABS: Albumin Globulin Ratio 0.8 (0.9-2); Albumin Level 3.7 gm/dl (3.4-5.0); Bilirubin,Total 0.4 mg/dl (0.2-1.0); Calcium 8.9 mg/dl (8.6-10.3); Creatinine Clr Calc Pharmacy 4.2 ml/min; Est GFR (African American) 3.9 ml/min; Est GFR (Non-African American) 3.4 ml/min; Globulin 4.6 gm/dl (2.5-4.0); Potassium 5.9 mmol/L (3.5-5.1); Total Protein 8.3 gm/dl (6.0-8.3); Troponin I High Sensitivity 21.6 pg/ml (0-20)
[2022-11-26] MEDS ORDERED: SODIUM BICARB 8.4% INJ 50 MEQ/50 ML SYR IV STA (01:39)
[2022-11-26] MEDS ORDERED: CALCIUM GLUCONATE 1,000 MG/60 ML BAG IV STA (01:50)
[2022-11-26 02:55] LABS: Base Excess VBG -12.3 mEq/L; HCO3 VBG 14 mmol/L; Oxygen Saturation VBG < 60.0 %; PCO2 VBG 34 mmHg (38-50); PO2 VBG 29 mmHg; pH VBG 7.23 (7.36-7.41)
[2022-11-26 03:17] LABS: Appearance Urine Turbid (Clear); Bacteria Urine Automated Negative (Negative); Bilirubin Urine Negative (Negative); Blood Urine 3+ (Negative); Epithelial Cell Urine Auto >30 /lpf (0-5); Glucose Urine UA Negative (Negative); Ketones Urine Trace (Negative); Leukocyte Esterase Urine 3+ (Negative); Nitrite Urine Negative (Negative); Protein Urine 3+ (Negative); Specific Gravity Urine 1.014 (1.000-1.030); Urobilinogen Urine Negative (Negative); WBC Urine Automated >30 /hpf (0-5); pH Urine 5.5 (4.5-7.5)
--- NOTE | 2022-11-26 03:26 | History & Physical Report ---
Date of Service November 26, 2022 Assessment & Plan (1) KENDRICK (acute kidney injury): Plan: 77yo male with HTN, HLP, DM presenting with acute kidney injury on CKD - recent baseline Cr around 2. Patient presents today with Cr of 12.75. He has gapped metabolic acidosis with HCO3 of 11, Gap of 24, Potassium elevated at 5.9 with some EKG changes likely secondary to hyperkalemia. Patient given Bicarbonate and Calcium gluconate. CT of the abdomen obtained - not yet read. Per my interpretation - bilateral ureteral stents appear to be in place. Still with bilateral hydronephrosis. Awaiting formal read. Patient does really need to have a Kennedy catheter placed. He has refused it at this time. Will continue to encourage placement -Admit to PCU, continuous cardiac monitoring -Encourage Kennedy catheter placement for I/O monitoring. Essential to proper management. Have ordered bladder scan and straight catheterizations for now until Kennedy is placed. -Check UA -Check FeNa -Check CK -Monitor BMP q 6 hours for treatment of hyperkalemia and metabolic derangements secondary to KENDRICK on CKD -Medical management for persistent hyperkalemia- repeat BMP ordered for now -IV hydration with LR at 125mL/hr x 2L -Nephrology consultation appreciated -Will likely need Urology consultation as well pending formal results of CT Abdomen -Continue Finasteride -Continue Oxybutynin (2) Hyperkalemia, diminished renal excretion: Plan: K=5.9 in setting of severe, acute renal dysfunction -Repeat BMP now and q 6 hours -Medical management for hyperkalemia and metabolic derangements -Nephrology consultation appreciated. At this time, patient is urinating, mentating well with no clinical signs of uremia. Hyperkalemia/AGMA being treated with medical management. No emergent need for dialysis, however, may n eed it at some point. (3) Hypertension: Plan: Borderline hypotension -Hold Amlodipine -Hold Chlorthalidone -Hold Metoprolol -Continue to monitor BP (4) PAF (paroxysmal atrial fibrillation): Plan: Rate controlled. Bradycardic at times. -Continue Amiodarone -Holding Metoprolol -Hold Eliquis now given degree of renal dysfunction (5) Diabetes mellitus, type 2: Plan: Chronic. Blood sugar=82. -Hold Metformin (6) Dyslipidemia: Plan: Chronic -Hold Atorvastatin History of Present Illness Chief Complaint: KENDRICK Primary Care Provider: Delmi Umanzor MD Neo Benavidez is a 77yo male with history of bladder cancer, CAD, s/p bilateral ureteral stent placement and hydronephrosis presenting with failure to thrive at home. Patient was recently admitted to [facility] 10/30/22 - 11/07/22 after presenting with poor appetite, decreased oral intake, generalized weakness and fatigue. Patient was found to be in KENDRICK at that time with Cr of 10.4. He had a CT abdomen/pelvis which revealed persistent bilateral hydronephrosis. Also with aguilar UTI s/p treatment with diflucan. Patient was recommended discharge to rehab. However, he opted to return home alone. Patient has not been doing well. He reports that he has not been eating. He has been trying to drink but it is difficult. He has progressive generalized weakness. He denies fever, chills, chest pain, cough, SOB, abdominal pain, nausea, vomiting, diarrhea or constipation. He reports that he is urinating per usual with no blood, foam or pain. No additional complaints at this time. In the ER patient is afebrile, hypotensive on arrival which improved with IVF. Stable respiratory status. Kennedy was ordered - patient was initially reluctant to have it placed. I discussed with him the importance of having one placed to monitor UOP etc. Patient initially agreeable. Nursing attempted to place Kennedy in the ER - stopped at patient's request due to discomfort. Blood pressure improved after IVF Allergies Allergy/AdvReac Type Severity Reaction Status Date / Time No Known Allergies Allergy Verified 10/30/22 08:23 Home Medications Medication Instructions Recorded Confirmed Type chlorthalidone 25 mg tablet 12.5 mg PO BID #90 tabs 10/24/21 11/26/22 Rx metformin 500 mg tablet,extended 500 mg PO BID #180 tabs 03/19/22 11/26/22 Rx release 24 hr metoprolol succinate 200 mg 200 mg PO BID #180 tabs 06/13/22 11/26/22 Rx tablet,extended release 24 hr atorvastatin 80 mg tablet 80 mg PO QAM #90 tabs 07/09/22 11/26/22 Rx amlodipine 10 mg tablet 10 mg PO QAM 09/14/22 11/26/22 History oxybutynin chloride 5 mg tablet 5 mg PO Q8H PRN bladder spasms #20 05/15/23 07/17/23 Rx tabs finasteride 5 mg tablet 5 mg PO DAILY #30 tabs 10/02/22 11/26/22 Rx amiodarone 200 mg tablet 200 mg PO BIDM 30 days #60 tabs 11/06/22 11/26/22 Rx apixaban 5 mg tablet (Eliquis) 5 mg PO BID 30 days #60 tabs 11/06/22 11/26/22 Rx clopidogrel 75 mg tablet 75 mg PO QAM 30 days #30 tabs 11/06/22 11/26/22 Rx Past Med/Surg History Medical History ARF (acute renal failure) Benign enlargement of prostate Bladder cancer newly diagnosed 08/2022. CAD (coronary artery disease) "Multi-Vessel CAD s/p Ostial and Proximal LAD NEVA x 2 and OM1 NEVA 07/01/2018 (with residual borderline D2 stenosis, OM2 stenosis, RCA/PDA stenoses which are felt amenable to complex PCI" follows with [facility] cardiology Diabetes mellitus, type 2 NIDDM Dyslipidemia History of colon polyps Hypertension Low back pain Multi-vessel coronary artery stenosis Myocardial Infarction ~3 years ago. follows with Erik Beltran. Tubular adenoma of colon Surgical History H/O colonoscopy 08/2016, repeat 5 yrs History of cardiac cath ~3 years ago, "failed stress test, needed cath", MD History of open reduction and internal fixation (ORIF) procedure Lt. Femur Stented coronary artery ~3 years ago, [facility], following cath at [facility], x1 stent (resolut summer) placed; now f/u Luis Manuel Beltran PA-C, [facility] Cardio. Family History Father Non-Hodgkin's lymphoma Mother Multiple myeloma Sister Dyslipidemia Heart disease Hypertension Uncle Myocardial infarction Other No family history of adverse response to anesthesia Denies family history of Ovarian cancer Prostate cancer Breast cancer Colorectal cancer Social History Smoking Status: Former smoker Second Hand Exposure: No; Do You Dip or Chew Tobacco: No; Hx Alcohol Use: No Hx Substance Use: No Preferred Language: Dutch Communication Ability: Effective Visual Impairment: Limited Hearing Ability: Normal Nurse Private Duty Required: No Beliefs That Will Affect Care: None marital status: Single Current Living Situation: Alone current occupational status: retired How many Children do You have: 0 Feels Safe at Home: Yes Childhood Exposure to Second-Hand Smoke: Yes caffeine: Yes Dental Care, Regularly: Yes Physical Activity Frequency: Daily Seatbelt Use: always Sunscreen Use: Yes Assistive Devices: Walker and Other Review of Systems Review of Systems: All systems reviewed & are unremarkable except as noted in HPI & below Physical Exam Physical Exam: General: thin, cachectic patient resting comfortably, NAD, non-toxic in appearance, AA&O x 4 Skin: warm, dry, intact, no rashes or lesions HEENT: NC/AT, PERRL, EOMI, anicteric sclera, conjunctiva without injection, external ear normal to inspection and nontender, nares patent, Dry mucus membranes, dentition intact, no oropharyngeal lesions, neck supple, trachea midline, no LAD, no thyromegaly, no JVD Heart: +S1/S2, regular, bradycardic, no m/r/g Lungs: equal air entry bilaterally, no rales/rhonchi/wheezes Abd: +BS, soft, NT/ND, no masses/organomegaly/ascites, no bladder distention appreciated on exam Ext: warm, 2+ pulses in UE/LE bilaterally, no clubbing/cyanosis or edema Neuro: nonfocal, patient AA&O x 4, speech intact, no facial droop, moving all extremities on command with equal strength 5/5 Results & Data Results & Data Vital Signs (Past 12 Hours) Vital Signs Temp Pulse Resp BP Pulse Ox O2 Del Method 11/26/22 02:30 56 L 20 99 11/26/22 02:30 93/50 L 11/26/22 02:00 57 L 17 94 11/26/22 02:00 97/52 L 11/26/22 01:49 106/53 L 11/26/22 01:49 56 L 23 100 11/26/22 01:30 58 L 17 11/26/22 01:00 57 L 22 98 11/26/22 01:00 96/54 L 11/26/22 00:48 59 L 20 99 11/26/22 00:48 99/52 L 11/26/22 00:30 58 L 20 86/53 L 97 11/26/22 00:10 94 H 25 H 99 11/26/22 00:08 16 11/26/22 00:08 98 Nasal Cannula 11/26/22 00:08 36.4 C L 60 16 99/50 L 98 Room Air 11/26/22 00:10 95 H Laboratory Results Laboratory Results WBC 16.07 K/ul (4.8-10.8) H 11/26/22 00:09 RBC 4.53 M/uL (4.70-6.10) L 11/26/22 00:09 Hgb 12.6 g/dl (14.0-18.0) L 11/26/22 00:09 Hct 37.3 % (42.0-52.0) L 11/26/22 00:09 MCV 82.3 fL (80.0-100.0) 11/26/22 00:09 MCH 27.8 pg (25.0-34.0) 11/26/22 00:09 MCHC 33.8 g/dL (32.0-36.0) 11/26/22 00:09 RDW Std Deviation 50.4 fL (36.4-46.3) H 11/26/22 00:09 RDW Coeff of Elsi 16.9 % (11.5-14.5) H 11/26/22 00:09 Plt Count 331 K/uL (130-400) 11/26/22 00:09 MPV 10.8 fL (9.4-12.4) 11/26/22 00:09 Immature Gran % (Auto) 0.5 % 11/26/22 00:09 Neut % (Auto) 74.3 % 11/26/22 00:09 Lymph % (Auto) 21.7 % 11/26/22 00:09 Garvin % (Auto) 3.1 % 11/26/22 00:09 Eos % (Auto) 0.1 % 11/26/22 00:09 Baso % (Auto) 0.3 % 11/26/22 00:09 Neut # (Auto) 11.94 K/uL (1.40-6.50) H 11/26/22 00:09 Lymph # (Auto) 3.48 K/uL (1.2-3.4) H 11/26/22 00:09 Garvin # (Auto) 0.50 K/uL (0.11-0.59) 11/26/22 00:09 Eos # (Auto) 0.02 K/uL (0-0.50) 11/26/22 00:09 Baso # (Auto) 0.05 K/uL (0-0.2) 11/26/22 00:09 Immature Gran # (Auto) 0.08 K/uL (0.01-0.20) 11/26/22 00:09 VBG pH 7.23 (7.36-7.41) L 11/26/22 02:22 VBG pCO2 34 mmHg (38-50) L 11/26/22 02:22 VBG pO2 29 mmHg 11/26/22 02:22 VBG HCO3 14 mmol/L 11/26/22 02:22 VBG O2 Saturation < 60.0 % 11/26/22 02:22 VBG Base Excess -12.3 mEq/L 11/26/22 02:22 Sodium 132 mmol/L (136-145) L 11/26/22 00:09 Potassium 5.9 mmol/L (3.5-5.1) H 11/26/22 00:09 Chloride 97 mmol/L (98-107) L 11/26/22 00:09 Carbon Dioxide 11 mmol/L (21-32) L 11/26/22 00:09 Anion Gap 24 (3-11) H 11/26/22 00:09 BUN 127 mg/dl (6-23) H 11/26/22 00:09 Creatinine 12.75 mg/dl (0.6-1.4) H* 11/26/22 00:09 Est Cr Clr Drug Dosing 4.2 ml/min 11/26/22 00:09 Est GFR ( Amer) 3.9 ml/min 11/26/22 00:09 Est GFR (Non-Af Amer) 3.4 ml/min 11/26/22 00:09 BUN/Creatinine Ratio 10.0 (10-20) 11/26/22 00:09 Glucose 82 mg/dl (70-99(Fasting)) 11/26/22 00:09 Lactate 1.3 mmol/L (0.4-2.0) 11/26/22 02:22 Calcium 8.9 mg/dl (8.6-10.3) 11/26/22 00:09 Total Bilirubin 0.4 mg/dl (0.2-1.0) 11/26/22 00:09 AST 10 U/L (13-39) L 11/26/22 00:09 ALT 6 U/L (7-52) L 11/26/22 00:09 Alkaline Phosphatase 92 U/L (34-104) 11/26/22 00:09 Total Creatine Kinase 52 U/L (30-223) 11/26/22 00:09 Troponin I High Sens 21.6 pg/ml (0-20) H 11/26/22 00:09 Total Protein 8.3 gm/dl (6.0-8.3) 11/26/22 00:09 Albumin 3.7 gm/dl (3.4-5.0) 11/26/22 00:09 Globulin 4.6 gm/dl (2.5-4.0) H 11/26/22 00:09 Albumin/Globulin Ratio 0.8 (0.9-2) L 11/26/22 00:09 Lipase 242 U/L (11-82) H 11/26/22 00:09 Urine Color Dark Yellow 11/26/22 03:02 Urine Appearance Turbid (Clear) A 11/26/22 03:02 Urine pH 5.5 (4.5-7.5) 11/26/22 03:02 Ur Specific [place] 1.014 (1.000-1.030) 11/26/22 03:02 Urine Protein 3+ (Negative) H 11/26/22 03:02 Urine Glucose (UA) Negative (Negative) 11/26/22 03:02 Urine Ketones Trace (Negative) H 11/26/22 03:02 Urine Blood 3+ (Negative) H 11/26/22 03:02 Urine Nitrite Negative (Negative) 11/26/22 03:02 Urine Bilirubin Negative (Negative) 11/26/22 03:02 Urine Urobilinogen Negative (Negative) 11/26/22 03:02 Ur Leukocyte Esterase 3+ (Negative) H 11/26/22 03:02 Urine WBC (Auto) >30 /hpf (0-5) H 11/26/22 03:02 Urine RBC (Auto) 5-10 /hpf (0-4) H 11/26/22 03:02 U Hyaline Cast (Auto) 0 /lpf (0-5) 11/26/22 03:02 U Epithel Cells (Auto) >30 /lpf (0-5) H 11/26/22 03:02 Urine Bacteria (Auto) Negative (Negative) 11/26/22 03:02 Urine Yeast Present (None Prsent) A 11/26/22 03:02 Ur Random Creatinine 104.7 mg/dl 11/26/22 03:02 Ur Random Sodium 101 mmol/L 11/26/22 03:02 SARS-CoV-2, RNA, NAAT NEGATIVE (NEGATIVE) 11/26/22 04:[address] Abdomen/Pelvis obtained at 02:36. Still awaiting read at 05:00 ECG Additional Comments: EKG with NSR at 60 bpm, normal axis, OG=582, YRT=211, RUr=964. T-waves appear large, mildly peaked PG Care Time/CCT Total # of Minutes Spent Total Time Spent with Patient: Total time spent is greater than 50% in coordination of care (as documented) at patient's floor/unit and/or counseling patient: Coding Level of Care Code 77797 INT INP/OBS CARE 3/75MIN Diagnoses KENDRICK (acute kidney injury) N17.9 Hyperkalemia, diminished renal excretion E87.5 Hypertension I10 PAF (paroxysmal atrial fibrillation) I48.0 Diabetes mellitus, type 2 E11.9 Dyslipidemia E78.5
[2022-11-26 03:29] LABS: Color Urine Dark Yellow
[2022-11-26 03:42] LABS: Cast Urine Automated 0 /lpf (0-5)
[2022-11-26 03:48] LABS: Creatinine Urine Random 104.7 mg/dl
--- NOTE | 2022-11-26 05:03 | CT Scan Report ---
Exam(s): CT ABDOMEN + PELVIS Without Contrast EXAM: CT Abdomen and Pelvis Without Intravenous Contrast CLINICAL HISTORY: Reason for exam: eval ureteral stents. TECHNIQUE: Axial computed tomography images of the abdomen and pelvis without intravenous contrast. CTDI is 11.01 mGy and DLP is 536.42 mGy-cm. Automated exposure control was utilized for the study. A dose lowering technique was utilized adhering to the principles of ALARA. COMPARISON: October 30, 2022 FINDINGS: Lung bases: Unremarkable. No mass. No consolidation. ABDOMEN: Liver: Unremarkable. Gallbladder and bile ducts: Sludge in a nondilated gallbladder. No surrounding inflammation or biliary duct dilation is seen. No calcified stones. Pancreas: Unremarkable. No ductal dilation. Spleen: Unremarkable. No splenomegaly. Adrenals: Unremarkable. No mass. Kidneys and ureters: There are bilateral double-J ureteral stents in standard position. There is moderate bilateral hydronephrosis, similar to previous. Consider stent dysfunction and/or chronic bladder spasm. Stomach and bowel: Unremarkable. No obstruction. No mucosal thickening. PELVIS: Appendix: No findings to suggest acute appendicitis. Bladder: There is bladder wall thickening measuring up to 10 mm, similar to previous which may represent chronic spasm, cystitis, less likely neoplasm. Correlate with history. No stones. Reproductive: Unremarkable as visualized. ABDOMEN and PELVIS: Intraperitoneal space: Unremarkable. No free air. No significant fluid collection. Bones/joints: Moderate multilevel degenerative changes throughout the spine. No acute fracture or subluxation is seen. Soft tissues: Unremarkable. Vasculature: The abdominal aorta is severely calcified but nondilated. Lymph nodes: Unremarkable. No enlarged lymph nodes. IMPRESSION: 1. There are bilateral double-J ureteral stents in standard position. There is moderate bilateral hydronephrosis, similar to previous. Consider stent dysfunction and/or chronic bladder spasm. 2. There is bladder wall thickening measuring up to 10 mm, similar to previous which may represent chronic spasm, cystitis, less likely neoplasm. Correlate with history. Electronically signed by: Juan Manuel Goldsmith MD 11/26/22 05:01 AM
[2022-11-26] MEDS ORDERED: oxyBUTYnin chloride 5 MG TAB PO PRN (05:55)
[2022-11-26] MEDS ORDERED: ONDANSETRON INJ 2 MG/ML 2 ML VIAL IV PRN (05:55)
[2022-11-26] MEDS: LACTATED RINGER'S 1,000 ML IV SCH ×2 (05:55→13:35)
[2022-11-26 06:26] LABS: BUN Creatinine Ratio 10.9 (10-20); Calcium 8.7 mg/dl (8.6-10.3); Creatinine Clr Calc Pharmacy 4.7 ml/min; Est GFR (African American) 4.5 ml/min; Est GFR (Non-African American) 3.8 ml/min; Potassium 5.2 mmol/L (3.5-5.1)
[2022-11-26 06:29] LABS: Magnesium 2.5 mg/dl (1.7-2.4); Phosphorus 11.1 mg/dl (2.5-4.9)
--- NOTE | 2022-11-26 06:55 | XRay Report ---
SINGLE VIEW CHEST CLINICAL HISTORY: Atypical chest pain. FINDINGS: 2 AP, portable, upright chest radiographs are compared to study dated 11/03/2022. Punctate r adiodensities projecting over the right chest are similar to previous. The cardiomediastinal silhouet te is unremarkable noting atherosclerotic calcification of the thoracic aorta. Emphysematous change i s suspected. Chronic interstitial thickening is similar to previous. The lungs and pleural spaces are clear. No pneumothorax is seen. The skeletal structures are osteopenic. The bony thorax is grossly i ntact. IMPRESSION: No acute cardiopulmonary abnormality. ACT 112: Negative or not required by law. Electronically signed by: Alvaro Sky M.D. 11/26/2022 6:53 AM
[2022-11-26] MEDS: AMIODARONE 200 MG TAB PO SCH ×2 (07:47→16:23)
[2022-11-26] MEDS: FINASTERIDE 5 MG TAB PO SCH (07:49)
[2022-11-26] MEDS: CLOPIDOGREL BISULFATE 75 MG TAB PO SCH (07:49)
--- NOTE | 2022-11-26 09:11 | Communication Note ---
Date of Service: November 26, 2022 See H+P for full assessment and plan except as otherwise stated: Creatinine 12.75->11.45 with IV fluids, Nephrology consult appreciated, no need for emergent dialysis. CTAP with stents seemingly with good placement, Urology consult deferred at this time but can get them onboard if necessary. Repeat BMP this afternoon, continue IVF through this evening. Complained of chest pressure to ER provider, last troponin at midnight 21.6, repeat troponin normal, EKG unchanged but no further chest pain/pressure or other evidence of ACS. Suspicious of poor renal clearance, not ACS. Echo 10/2022 without WMA and had higher troponin at that time, will continue to monitor. Has Hx of CAD s/p stent in 2019.
--- NOTE | 2022-11-26 12:02 | Nephrology Consultation ---
Date of Consultation November 26, 2022 Assessment & Plan (1) KENDRICK (acute kidney injury): Urine output reduced. Unfortunately, urine output not able to be accurately documented due to incontinence. Neo was encouraged to consider Kennedy placement. There is a component of intravascular depletion. IVFs are infusing. Unclear if there is an obstructive nephropathy. Document strict I/O's. Repeat metabolic profile this afternoon. Medications appropriate for kidney function. Discontinue metformin. Hold lisinopril and chlorthalidone. (2) Acute hyperkalemia: Low potassium diet. Repeat metabolic profile this afternoon. Hold ARIEL. (3) PAF (paroxysmal atrial fibrillation): Remains in sinus rhythm. Tele monitor. Remains on amiodarone and Eliquis appropriately dosed for kidney function. Tolerating therapy well. (4) Hypertension: Hypotensive on admission. Antihypertensives held. IVF provided. (5) S/P ureteral stent placement: Urology consultation pending. CT reviewed. Document PVR. (6) Diabetes mellitus, type 2: Discontinue metformin. History of Present Illness Reason for Consultation: KENDRICK on CKD Requesting Physician: Anna Ferro DO Attending Physician: Anna Ferro DO History of Present Illness Mr. Neo Benavidez is a 77 year-old male with coronary artery disease, paroxysmal atrial fibrillation, bladder cancer, and chronic kidney disease. Neo was admitted to [facility] overnight with failure to thrive at home and laboratory evaluation demonstrating notable acute kidney injury. He was recently admitted to [facility] from October 30 through with weakness, fatigue, and poor PO intake resulting in notable KENDRICK. Serum creatinine in September measured at 1.2 mg/dL. Creatinine peaked at 10.4 mg/dL in October and improved to 1.9 mg/dL. Neo was discharged home but unfortunately states that he was not able to take care of himself. He refused rehab previously but now acknowledges that he will require more assistance. He remains very weak. Neo has persistently poor appetite and very poor activity tolerance. He was no preparing meals at home. He has been losing weight for the better part of the past year. Neo was treated with Diflucan for aguilar in his urine during his recent hospitalization. Olmesartan and metformin were discontinued. CT scan continues to demonstrate persistent bilateral hydronephrosis with ureteral catheters in place. He refuses Kennedy catheter placement. BL ureteral stenting performed by urology in September following TURBT. Recent hospitalization also notable for new diagnosis of paroxysmal atrial fibrillation for which Neo has been started on amiodarone and Eliquis. He was hypotensive on presentation to the ER but this improved with IVF. He has been voiding small amounts into a urinal since admission. He denies dysuria. He reports pain with Kennedy placement in the past. Urine studies demonstrate >30 WBC, 5-10 RBC, and +3 protein. Allergies Allergy/AdvReac Type Severity Reaction Status Date / Time No Known Allergies Allergy Verified 10/30/22 08:23 Home Medications Medication Instructions Recorded Confirmed Type chlorthalidone 25 mg tablet 12.5 mg PO BID #90 tabs 10/24/21 11/26/22 Rx metformin 500 mg tablet,extended 500 mg PO BID #180 tabs 03/19/22 11/26/22 Rx release 24 hr metoprolol succinate 200 mg 200 mg PO BID #180 tabs 06/13/22 11/26/22 Rx tablet,extended release 24 hr atorvastatin 80 mg tablet 80 mg PO QAM #90 tabs 07/09/22 11/26/22 Rx amlodipine 10 mg tablet 10 mg PO QAM 09/14/22 11/26/22 History oxybutynin chloride 5 mg tablet 5 mg PO Q8H PRN bladder spasms #20 09/24/22 11/26/22 Rx tabs finasteride 5 mg tablet 5 mg PO DAILY #30 tabs 10/02/22 11/26/22 Rx amiodarone 200 mg tablet 200 mg PO BIDM 30 days #60 tabs 11/06/22 11/26/22 Rx apixaban 5 mg tablet (Eliquis) 5 mg PO BID 30 days #60 tabs 11/06/22 11/26/22 Rx clopidogrel 75 mg tablet 75 mg PO QAM 30 days #30 tabs 11/06/22 11/26/22 Rx Patient History Medical History ARF (acute renal failure) Benign enlargement of prostate Bladder cancer newly diagnosed 08/2022. CAD (coronary artery disease) "Multi-Vessel CAD s/p Ostial and Proximal LAD NEVA x 2 and OM1 NEVA 07/01/2018 (with residual borderline D2 stenosis, OM2 stenosis, RCA/PDA stenoses which are felt amenable to complex PCI" follows with [facility]ology Diabetes mellitus, type 2 NIDDM Dyslipidemia History of colon polyps Hypertension Low back pain Multi-vessel coronary artery stenosis Myocardial Infarction ~3 years ago. follows with Erik Beltran. Tubular adenoma of colon Surgical History H/O colonoscopy 08/2016, repeat 5 yrs History of cardiac cath ~3 years ago, "failed stress test, needed cath", [facility] History of open reduction and internal fixation (ORIF) procedure Lt. Femur Stented coronary artery ~3 years ago, [facility], following cath at [facility], x1 stent (resolut summer) placed; now f/u Luis Manuel Beltran PA-C, [facility] Cardio. Family History Father Non-Hodgkin's lymphoma Mother Multiple myeloma Sister Dyslipidemia Heart disease Hypertension Uncle Myocardial infarction Other No family history of adverse response to anesthesia Denies family history of Ovarian cancer Prostate cancer Breast cancer Colorectal cancer Social History Smoking Status: Former smoker Second Hand Exposure: No; Do You Dip or Chew Tobacco: No; Hx Alcohol Use: No Hx Substance Use: No Preferred Language: Barbadian Communication Ability: Effective Visual Impairment: Limited Hearing Ability: Normal Oracle Architect Required: No Beliefs That Will Affect Care: None marital status: Single Current Living Situation: Alone current occupational status: retired How many Children do You have: 0 Feels Safe at Home: Yes Childhood Exposure to Second-Hand Smoke: Yes caffeine: Yes Dental Care, Regularly: Yes Physical Activity Frequency: Daily Seatbelt Use: always Sunscreen Use: Yes Assistive Devices: Walker Review of Systems Review of Systems: All systems reviewed & are unremarkable except as noted in HPI & below Constitutional: + fatigue, + weakness, + anorexia and + weight loss; no fever and no chills Gastrointestinal: + abdominal pain and + bloating; no nausea, no vomiting, no constipation, no diarrhea/loose stools and no blood in stools Genitourinary: + urinary frequency and + decreased urination; no dysuria, no urinary hesitancy or no hematuria Physical Exam Constitutional: well developed, + thin and + frail appearing; no acute distress Eyes: no scleral abnormality and no corneal abnormality ENMT: Mouth: + dry oral mucous membranes; no oral mucosal abnormality Neck: normal visual inspection and trachea midline Respiratory: normal respiratory effort Auscultation: lungs clear to auscultation bilaterally Cardiovascular: Rate/Rhythm: regular rate Heart Sounds: normal S1 and normal S2 Extremities: no edema Musculoskeletal: Extremities: no cyanosis and no clubbing Skin: + turgor decreased; no jaundice Neurologic: Motor/Sensory: no tremor and no asterixis Psychiatric: Orientation: alert and oriented x 3 Results & Data Vital Signs (Past 12 Hours) Vital Signs Temp Pulse Pulse Pulse Resp BP BP 11/26/22 10:59 36.2 C L 18 97/72 L 11/26/22 07:14 36.5 C 58 L 18 121/58 L 11/26/22 05:55 11/26/22 05:59 59 L 11/26/22 05:55 36.2 C L 56 L 18 114/65 11/26/22 06:18 36.2 C L 56 L 18 114/65 11/26/22 06:00 11/26/22 05:00 57 L 18 11/26/22 05:00 103/49 L 11/26/22 04:30 56 L 20 11/26/22 04:30 105/55 L 11/26/22 04:00 59 L 18 11/26/22 04:00 112/70 11/26/22 03:30 89 19 11/26/22 03:30 105/54 L 11/26/22 03:00 96 H 15 11/26/22 03:00 122/58 L 11/26/22 04:28 56 L 11/26/22 02:30 56 L 20 11/26/22 02:30 93/50 L 11/26/22 02:00 57 L 17 11/26/22 02:00 97/52 L 11/26/22 01:49 106/53 L 11/26/22 01:49 56 L 23 11/26/22 01:30 58 L 17 11/26/22 01:00 57 L 22 11/26/22 01:00 96/54 L 11/26/22 00:48 59 L 20 11/26/22 00:48 99/52 L 11/26/22 00:30 58 L 20 86/53 L 11/26/22 00:10 94 H 25 H 11/26/22 00:08 16 11/26/22 00:08 11/26/22 00:08 36.4 C L 60 16 99/50 L 11/26/22 00:10 95 H Pulse Ox Pulse Ox O2 Del Method O2 Del Method 11/26/22 10:59 96 Room Air 11/26/22 07:14 98 Room Air 11/26/22 05:55 97 Room Air 11/26/22 05:59 11/26/22 05:55 97 Room Air 11/26/22 06:18 97 Room Air 11/26/22 06:00 Room Air 11/26/22 05:00 98 11/26/22 05:00 11/26/22 04:30 98 11/26/22 04:30 11/26/22 04:00 98 11/26/22 04:00 11/26/22 03:30 96 11/26/22 03:30 11/26/22 03:00 99 11/26/22 03:00 11/26/22 04:28 11/26/22 02:30 99 11/26/22 02:30 11/26/22 02:00 94 11/26/22 02:00 11/26/22 01:49 11/26/22 01:49 100 11/26/22 01:30 11/26/22 01:00 98 11/26/22 01:00 11/26/22 00:48 99 11/26/22 00:48 11/26/22 00:30 97 11/26/22 00:10 99 11/26/22 00:08 11/26/22 00:08 98 Nasal Cannula 11/26/22 00:08 98 Room Air 11/26/22 00:[address] Abdomen and Pelvis Without Intravenous Contrast CLINICAL HISTORY: Reason for exam: eval ureteral stents. COMPARISON: October 30, 2022 FINDINGS: Lung bases: Unremarkable. No mass. No consolidation. ABDOMEN: Liver: Unremarkable. Gallbladder and bile ducts: Sludge in a nondilated gallbladder. No surrounding inflammation or biliary duct dilation is seen. No calcified stones. Pancreas: Unremarkable. No ductal dilation. Spleen: Unremarkable. No splenomegaly. Adrenals: Unremarkable. No mass. Kidneys and ureters: There are bilateral double-J ureteral stents in standard position. There is moderate bilateral hydronephrosis, similar to previous. Consider stent dysfunction and/or chronic bladder spasm. Stomach and bowel: Unremarkable. No obstruction. No mucosal thickening. PELVIS: Appendix: No findings to suggest acute appendicitis. Bladder: There is bladder wall thickening measuring up to 10 mm, similar to previous which may represent chronic spasm, cystitis, less likely neoplasm. Correlate with history. No stones. Reproductive: Unremarkable as visualized. ABDOMEN and PELVIS: Intraperitoneal space: Unremarkable. No free air. No significant fluid collection. Bones/joints: Moderate multilevel degenerative changes throughout the spine. No acute fracture or subluxation is seen. Soft tissues: Unremarkable. Vasculature: The abdominal aorta is severely calcified but nondilated. Lymph nodes: Unremarkable. No enlarged lymph nodes. IMPRESSION: 1. There are bilateral double-J ureteral stents in standard position. There is moderate bilateral hydronephrosis, similar to previous. Consider stent dysfunction and/or chronic bladder spasm. 2. There is bladder wall thickening measuring up to 10 mm, similar to previous which may represent chronic spasm, cystitis, less likely neoplasm. Correlate with history. PG Care Time/CCT Total # of Minutes Spent Total Time Spent with Patient: Total time spent is greater than 50% in coordination of care (as documented) at patient's floor/unit and/or counseling patient: Coding Level of Care Code 41261 IN/OBS CONSULT LVL 4,60M Diagnoses KENDRICK (acute kidney injury) N17.9 Acute hyperkalemia E87.5 PAF (paroxysmal atrial fibrillation) I48.0 Hypertension I10 S/P ureteral stent placement Z96.0 Diabetes mellitus, type 2 E11.9
[2022-11-26 13:03] LABS: Albumin Level 3.3 gm/dl (3.4-5.0)
--- NOTE | 2022-11-26 13:07 | Electrocardiogram Report ---
Test Reason : Blood Pressure : / mmHG Vent. Rate : 060 BPM Atrial Rate : 060 BPM P-R Int : 168 ms QRS Dur : 100 ms QT Int : 446 ms P-R-T Axes : 082 051 072 degrees QTc Int : 446 ms Normal sinus rhythm Prominent T wave amplitude Nonspecific ST abnormality Abnormal ECG When compared with ECG of 05-NOV-2022 11:50, Vent. rate has decreased BY [address] no longer depressed in Anterolateral leads Nonspecific T wave abnormality no longer evident in Inferior leads Nonspecific T wave abnormality no longer evident in Lateral leads Confirmed by Hola Easley ([id number]) on 11/26/2022 1:06:55 PM Referred By: REFERRED SELF Confirmed By:Hola Easley
--- NOTE | 2022-11-26 13:19 | Electrocardiogram Report ---
Test Reason : Blood Pressure : / mmHG Vent. Rate : 061 BPM Atrial Rate : 061 BPM P-R Int : 152 ms QRS Dur : 096 ms QT Int : 442 ms P-R-T Axes : 074 059 068 degrees QTc Int : 444 ms Normal sinus rhythm Normal ECG When compared with ECG of 26-NOV-2022 00:08, (unconfirmed) No significant change was found Confirmed by Hola Easley ([id number]) on 11/26/2022 1:19:31 PM Referred By: REFERRED SELF Confirmed By:Hola Easley
[2022-11-26] MEDS: SODIUM BICARBONATE 650 MG TAB PO SCH ×2 (13:35→20:54)
[2022-11-26 15:14] LABS: BUN Creatinine Ratio 12.1 (10-20); Calcium 8.1 mg/dl (8.6-10.3); Creatinine Clr Calc Pharmacy 5.5 ml/min; Est GFR (African American) 5.1 ml/min; Est GFR (Non-African American) 4.4 ml/min; Potassium 4.5 mmol/L (3.5-5.1)
[2022-11-26] MEDS: CALCIUM ACETATE 667 MG CAP/TAB PO SCH (16:59)
[2022-11-27] MEDS: SODIUM BICARBONATE 650 MG TAB PO SCH ×3 (05:22→21:54)
[2022-11-27 06:38] LABS: Hematocrit (blood only) 30.2 % (42.0-52.0); Hemoglobin 10.2 g/dl (14.0-18.0); Mean Corpuscular Hemoglobin 27.6 pg (25.0-34.0); Mean Corpuscular Hgb Conc 33.8 g/dL (32.0-36.0); Mean Corpuscular Volume 81.8 fL (80.0-100.0); Mean Platelet Volume 10.3 fL (9.4-12.4); Platelet Count 182 K/uL (130-400); RDW Coefficient of Variation 16.8 % (11.5-14.5); RDW Standard Deviation 49.5 fL (36.4-46.3); Red Blood Count 3.69 M/uL (4.70-6.10); White Blood Count 8.59 K/ul (4.8-10.8)
[2022-11-27 06:56] LABS: Albumin Level 2.9 gm/dl (3.4-5.0); BUN Creatinine Ratio 13.4 (10-20); Creatinine Clr Calc Pharmacy 6.9 ml/min; Est GFR (African American) 6.3 ml/min; Est GFR (Non-African American) 5.4 ml/min; Phosphorus 6.7 mg/dl (2.5-4.9)
--- NOTE | 2022-11-27 07:24 | Hospitalist Progress Note ---
Date of Service November 27, 2022 Assessment & Plan (1) KENDRICK (acute kidney injury): Plan: Creatinine 12.75->7.49 with IV fluids, Nephrology consult appreciated, no need for emergent dialysis. Continue Plasmalyte fluids, monitor UOP as much as able (does have some incontinence and refusing Kennedy at this time). Receiving Phoslo, as well as sodium bicarb for metabolic acidosis. Daily renal function panel. CTAP with stents seemingly with good placement, Urology consulted, recommending treatment of Yeast in urine, fluconazole 400mg daily renal dosing started (KATIA pierre recommends EKG and LFTs q2d while on this). Urology considering stent exchange later this week by Dr. Krishnamurthy, sooner if clinically worsens. Patient may need percutaneous nephrostomy tubes in the future if he fails retrograde management. (2) Hyperkalemia, diminished renal excretion: Plan: K 5.9 on admission in setting of severe, acute renal dysfunction, now resolved to 3.9 with IVF (3) Left flank mass: Plan: Noted on nursing exam today, patient did not know it was there Nontender, no evidence of infection on exam nor is patient's WBC count elevated US ordered to further clarify fluctuant mass (4) Hypertension: Plan: Borderline hypotension, holding the following: Amlodipine Chlorthalidone Metoprolol (5) PAF (paroxysmal atrial fibrillation): Plan: Rate controlled. Bradycardic at times. Continue Amiodarone Holding Metoprolol and Eliquis for now, resume as able (6) Diabetes mellitus, type 2: Plan: Chronic. Blood sugar=82. Hold Metformin (7) Dyslipidemia: Plan: Chronic Hold Atorvastatin Plan Anticipate need for rehab on discharge; was recommended on last admission but patient declined at that time. Admits that he declined further at home and desirous of rehab placement on discharge this time. Admission and Anticipated Discharge Date Admission Date: November 26, 2022 Subjective Patient without acute events overnight. Noted by nursing staff to have mass on posterior left trunk, patient reports not painful, didn't know it was there. Review of Systems Review of Systems: All systems reviewed & are unremarkable except as noted in Subjective Physical Exam Constitutional: WD/WN, vitals as above Respiratory: normal respiratory effort, lungs clear to auscultation Cardiovascular: HR regular, non-tachycardic, no murmurs, no peripheral edema Gastrointestinal (Abdomen): normal bowel sounds, soft, nontender, no hepatosplenomegaly Skin: no rashes, warm and dry left upper flank ~[id number] mass, soft, nontender, fluctuant, no surrounding erythema Psychiatric: A+Ox3, euthymic affect Results & Data Results & Data Vital Signs (Past 12 Hours) Vital Signs Temp Pulse Pulse Resp BP Pulse Ox O2 Del Method 11/27/22 07:19 36.7 C 76 18 135/76 97 Room Air 11/27/22 05:55 11/27/22 02:36 36.4 C L 64 16 129/72 97 Room Air 11/26/22 23:25 60 11/26/22 22:12 36.8 C 80 18 117/72 97 Room Air 11/26/22 20:02 Room Air O2 Del Method 11/27/22 07:19 11/27/22 05:55 Room Air 11/27/22 02:36 11/26/22 23:25 11/26/22 22:12 11/26/22 20:02 PG Care Time/CCT Total # of Minutes Spent Total Time Spent with Patient: Total time spent is greater than 50% in coordination of care (as documented) at patient's floor/unit and/or counseling patient: Coding Level of Care Code 52046 SUB INP/OBS CARE 3/50MIN Diagnoses KENDRICK (acute kidney injury) N17.9 Hyperkalemia, diminished renal excretion E87.5 Left flank mass R19.00 Hypertension I10 PAF (paroxysmal atrial fibrillation) I48.0 Diabetes mellitus, type 2 E11.9 Dyslipidemia E78.5
[2022-11-27] MEDS: AMIODARONE 200 MG TAB PO SCH ×2 (08:44→16:41)
[2022-11-27] MEDS: CLOPIDOGREL BISULFATE 75 MG TAB PO SCH (08:45)
[2022-11-27] MEDS: FINASTERIDE 5 MG TAB PO SCH (08:45)
[2022-11-27] MEDS: CALCIUM ACETATE 667 MG CAP/TAB PO SCH ×3 (08:45→16:42)
[2022-11-27] MEDS: PLASMA-LYTE A 1,000 ML IV SCH ×2 (09:27→17:54)
--- NOTE | 2022-11-27 09:36 | Nephrology Progress Note ---
Date of Service November 27, 2022 Assessment & Plan (1) KENDRICK (acute kidney injury): Plan: Volume status improved. Creatinine slightly improved. Electrolytes acceptable. There is no emergent indication for dialysis. Neo denies any notable uremic symptoms. He continues to struggle emptying bladder. Urology follow up requested. Continue IVF to encourage slightly positive fluid balance. Document I/O's as able. Repeat metabolic profile this afternoon. Medications appropriate for kidney function. Discontinue metformin. Continue to hold lisinopril and chlorthalidone. (2) Acute hyperkalemia: Plan: Improved with IVF. Maintain low potassium diet. (3) PAF (paroxysmal atrial fibrillation): Plan: Remains in sinus rhythm. Tele monitor. Remains on amiodarone and Eliquis appropriately dosed for kidney function. Tolerating therapy well. (4) Hypertension: Plan: Hypotensive on admission. Antihypertensives held. (5) S/P ureteral stent placement: Plan: Urology consultation pending. CT reviewed. (6) Diabetes mellitus, type 2: Plan: Discontinue metformin. Admission and Anticipated Discharge Date Admission Date: November 26, 2022 Subjective No acute events overnight. Incontinent of urine while sleeping. Only able to void small amounts of urine at a time. No fluid retention or edema. Persistent discomfort voiding. No fevers or chills. Per nursing notes, mental status waxing and waning overnight. Oriented this AM. Review of Systems Review of Systems: All systems reviewed & are unremarkable except as noted in HPI & below Physical Exam Constitutional: well developed, + thin and + frail appearing; no acute distress Eyes: no scleral abnormality and no corneal abnormality ENMT: Mouth: no oral mucosal abnormality and oral mucous membranes not dry Neck: normal visual inspection and trachea midline Respiratory: normal respiratory effort Auscultation: lungs clear to auscultation bilaterally Cardiovascular: Rate/Rhythm: regular rate and + irregularly irregular Heart Sounds: normal S1 and normal S2 Extremities: no edema Gastrointestinal (Abdomen): Percussion/Palpation: + abdomen tender, + guarding (over bladder) and + dullness to percussion Musculoskeletal: Extremities: no cyanosis and no clubbing Skin: + turgor decreased; no jaundice Neurologic: Motor/Sensory: no tremor and no asterixis Psychiatric: Orientation: alert and oriented x 3 Results & Data Vital Signs (Past 12 Hours) Vital Signs Temp Pulse Pulse Resp BP Pulse Ox O2 Del Method 11/27/22 08:22 67 11/27/22 07:19 36.7 C 76 18 135/76 97 Room Air 11/27/22 05:55 11/27/22 02:36 36.4 C L 64 16 129/72 97 Room Air 11/26/22 23:25 60 11/26/22 22:12 36.8 C 80 18 117/72 97 Room Air O2 Del Method 11/27/22 08:22 11/27/22 07:19 11/27/22 05:55 Room Air 11/27/22 02:36 11/26/22 23:25 11/26/22 22:12 Laboratory Results Laboratory Results - last 24 hr 11/26/22 11/26/22 11/26/22 05:42 09:31 11:18 WBC RBC Hgb Hct MCV MCH MCHC RDW Std Deviation RDW Coeff of Elsi Plt Count MPV Sodium 134 L Potassium 5.2 H Chloride 100 Carbon Dioxide 14 L Anion Gap 20 H BUN 125 H Creatinine 11.45 H* D Est Cr Clr Drug Dosing 4.7 Est GFR ( Amer) 4.5 Est GFR (Non-Af Amer) 3.8 BUN/Creatinine Ratio 10.9 Glucose 72 POC Glucose 128 H Calcium 8.7 Phosphorus 11.1 H Troponin I High Sens 14.8 D Albumin 3.3 L 11/26/22 11/26/22 11/26/22 14:21 15:54 20:08 WBC RBC Hgb Hct MCV MCH MCHC RDW Std Deviation RDW Coeff of Elsi Plt Count MPV Sodium 133 L Potassium 4.5 Chloride 100 Carbon Dioxide 17 L Anion Gap 16 H BUN 124 H Creatinine 10.22 H* D Est Cr Clr Drug Dosing 5.5 Est GFR ( Amer) 5.1 Est GFR (Non-Af Amer) 4.4 BUN/Creatinine Ratio 12.1 Glucose 160 H POC Glucose 170 H 209 H Calcium 8.1 L Phosphorus Troponin I High Sens Albumin 11/27/22 11/27/22 11/27/22 05:49 05:54 05:54 WBC 8.59 RBC 3.69 L Hgb 10.2 L Hct 30.2 L MCV 81.8 MCH 27.6 MCHC 33.8 RDW Std Deviation 49.5 H RDW Coeff of Elsi 16.8 H Plt Count 182 MPV 10.3 Sodium 135 L Potassium 4.0 Chloride 103 Carbon Dioxide 18 L Anion Gap 14 H BUN 116 H Creatinine 8.64 H* D Est Cr Clr Drug Dosing 6.9 Est GFR ( Amer) 6.3 Est GFR (Non-Af Amer) 5.4 BUN/Creatinine Ratio 13.4 Glucose 99 POC Glucose 102 H Calcium 8.0 L Phosphorus 6.7 H Troponin I High Sens Albumin 2.9 L 11/27/22 07:18 WBC RBC Hgb Hct MCV MCH MCHC RDW Std Deviation RDW Coeff of Elsi Plt Count MPV Sodium Potassium Chloride Carbon Dioxide Anion Gap BUN Creatinine Est Cr Clr Drug Dosing Est GFR ( Amer) Est GFR (Non-Af Amer) BUN/Creatinine Ratio Glucose POC Glucose 74 Calcium Phosphorus Troponin I High Sens Albumin PG Care Time/CCT Total # of Minutes Spent Total Time Spent with Patient: Total time spent is greater than 50% in coordination of care (as documented) at patient's floor/unit and/or counseling patient: Coding Level of Care Code 60527 SUB INP/OBS CARE 3/50MIN Diagnoses KENDRICK (acute kidney injury) N17.9 Acute hyperkalemia E87.5 PAF (paroxysmal atrial fibrillation) I48.0 Hypertension I10 S/P ureteral stent placement Z96.0 Diabetes mellitus, type 2 E11.9
--- NOTE | 2022-11-27 12:18 | Urology Consultation ---
Date of Consultation November 27, 2022 Assessment & Plan (1) Acute renal failure: (2) Bladder cancer: (3) Hydronephrosis: Patient afebrile and hemodynamically stable Labscreatinine downtrending (7.49), no leukocytosis, Hgb 10.2 - continue to trend labs Urine culture growing yeast - recommend treatment for yeast CT A/P reviewed and notable for bilateral hydronephrosis, similar to previous, stents appear in good position Last bilateral stent exchange on 09/24/2022 No acute intervention planned today Continue hydration, maximum drainage and optimizing patient Consider stent exchange later this week with Dr. Krishnamurthy, sooner if patient becomes febrile or creatinine worsening Patient may be failing retrograde management and may require management with percutaneous nephrostomy tubes Discussed Kennedy catheter with patient to maximize drainage - he declines presently Recommend monitor urine output - check a postvoid residual bladder scan now and continue bladder scan prn Continue supportive care and medical management per hospital service will follow History of Present Illness Reason for Consultation: hydronephrosis Requesting Physician: Dr. Lomax Attending Physician: Anna Ferro, History of Present Illness This is a 77-year-old male with PMHx of type 2 diabetes, anemia, CAD with multivessel coronary disease with history of PCI/stents on aspirin and Plavix, and bladder cancer s/p TURBT x 2 and bilateral ureteral stents who presented to the emergency department on 11/26/22 with complaint of dehydration and chest pressure and was admitted for acute renal failure and hyperkalemia. On arrival, he was afebrile and hypotensive. Lab work independently reviewed and showed WBC 16.07, hemoglobin 12.6, sodium 132, potassium 5.9, creatinine 12.75, lactate 1.3. Urinalysis notable for 3+ protein, trace ketones, 3+ blood, 3+ leukocyte esterase, >30 WBC, 5-10 RBC, > 30 epithelials, yeast present, negative for bacteria. CT a/p showed there are bilateral double-J ureteral stents in standard position, moderate bilateral hydronephrosis, similar to previous. Troponin was minimally elevated at 21.6 and EKG was unremarkable. ED course included IV fluids, calcium gluconate and sodium bicarbonate. He was admitted to the hospital medicine service. Of note, he was recently admitted from October 30 - November 07 for weakness, fatigue, and poor PO intake resulting in acute renal failure (creatinine 10.44 --> 1.93), aguilar UTI s/p treatment with Diflucan. Urology is consulted for evaluation of hydronephrosis. Patient is known to our service for history of bladder cancer. He is s/p TURBT and bilateral ureteral stent exchange on 09/24/22. Today's labs - creatinine 8.64, WBC 8.59, Hgb 10.2. Urine culture prelim showing yeast. Patient seen and examined at bedside this afternoon. He is awake, alert and sitting up in bed eating lunch. Subjectively feeling better since arrival. Denies flank, abdominal or suprapubic pain. Denies nausea, vomiting, fever or chills. He is voiding spontaneously into urinal. Urine appears milky in color. Occasionally has discomfort in penis with urination. Denies dysuria or hematuria. Allergies Allergy/AdvReac Type Severity Reaction Status Date / Time No Known Allergies Allergy Verified 10/30/22 08:23 Home Medications Medication Instructions Recorded Confirmed Type chlorthalidone 25 mg tablet 12.5 mg PO BID #90 tabs 10/24/21 11/26/22 Rx metformin 500 mg tablet,extended 500 mg PO BID #180 tabs 03/19/22 11/26/22 Rx release 24 hr metoprolol succinate 200 mg 200 mg PO BID #180 tabs 06/13/22 11/26/22 Rx tablet,extended release 24 hr atorvastatin 80 mg tablet 80 mg PO QAM #90 tabs 07/09/22 11/26/22 Rx amlodipine 10 mg tablet 10 mg PO QAM 09/14/22 11/26/22 History oxybutynin chloride 5 mg tablet 5 mg PO Q8H PRN bladder spasms #20 09/24/22 11/26/22 Rx tabs finasteride 5 mg tablet 5 mg PO DAILY #30 tabs 10/02/22 11/26/22 Rx amiodarone 200 mg tablet 200 mg PO BIDM 30 days #60 tabs 11/06/22 11/26/22 Rx apixaban 5 mg tablet (Eliquis) 5 mg PO BID 30 days #60 tabs 11/06/22 11/26/22 Rx clopidogrel 75 mg tablet 75 mg PO QAM 30 days #30 tabs 11/06/22 11/26/22 Rx Patient History Medical History ARF (acute renal failure) Benign enlargement of prostate Bladder cancer newly diagnosed 08/2022. CAD (coronary artery disease) "Multi-Vessel CAD s/p Ostial and Proximal LAD NEVA x 2 and OM1 NEVA 07/01/2018 (with residual borderline D2 stenosis, OM2 stenosis, RCA/PDA stenoses which are felt amenable to complex PCI" follows with [facility] Diabetes mellitus, type 2 NIDDM Dyslipidemia History of colon polyps Hypertension Low back pain Multi-vessel coronary artery stenosis Myocardial Infarction ~3 years ago. follows with Erik Beltran. Tubular adenoma of colon Surgical History H/O colonoscopy 08/2016, repeat 5 yrs History of cardiac cath ~3 years ago, "failed stress test, needed cath", [facility] History of open reduction and internal fixation (ORIF) procedure Lt. Femur Stented coronary artery ~3 years ago, [facility], following cath at [facility], x1 stent (resolut summer) placed; now f/u Luis Manuel Beltran PA-C, [facility] Cardio. Family History Father Non-Hodgkin's lymphoma Mother Multiple myeloma Sister Dyslipidemia Heart disease Hypertension Uncle Myocardial infarction Other No family history of adverse response to anesthesia Denies family history of Ovarian cancer Prostate cancer Breast cancer Colorectal cancer Social History Smoking Status: Former smoker Second Hand Exposure: No; Do You Dip or Chew Tobacco: No; Hx Alcohol Use: No Hx Substance Use: No Preferred Language: Spanish Communication Ability: Effective Visual Impairment: Limited Hearing Ability: Normal Liquor Merchant Required: No Beliefs That Will Affect Care: None marital status: Single Current Living Situation: Alone current occupational status: retired How many Children do You have: 0 Feels Safe at Home: Yes Childhood Exposure to Second-Hand Smoke: Yes caffeine: Yes Dental Care, Regularly: Yes Physical Activity Frequency: Daily Seatbelt Use: always Sunscreen Use: Yes Assistive Devices: Walker Review of Systems Review of Systems: All systems reviewed & are unremarkable except as noted in HPI & below Physical Exam Constitutional: + thin; no acute distress Eyes: no scleral abnormality Neck: trachea midline Respiratory: normal respiratory effort; no respiratory distress and no labored breathing Gastrointestinal (Abdomen): Inspection/Auscultation: abdomen normal to inspection; abdomen not distended Percussion/Palpation: abdomen soft; abdomen nontender Musculoskeletal: Head/Neck/Chest: normocephalic Neurologic: moves all extremities and awake Psychiatric: Orientation: alert and oriented x 3 Genitourinary: Urine in urinal appear milky in color Results & Data Vital Signs (Past 12 Hours) Vital Signs Temp Pulse Pulse Resp BP Pulse Ox O2 Del Method 11/27/22 11:00 36.8 C 88 16 128/64 99 Room Air 11/27/22 08:00 Room Air 11/27/22 08:22 67 11/27/22 07:19 36.7 C 76 18 135/76 97 Room Air 11/27/22 05:55 11/27/22 02:36 36.4 C L 64 16 129/72 97 Room Air O2 Del Method 11/27/22 11:00 11/27/22 08:00 11/27/22 08:22 11/27/22 07:19 11/27/22 05:55 Room Air 11/27/22 02:36 PG Care Time/CCT Total # of Minutes Spent Total Time Spent with Patient: Total time spent is greater than 50% in coordination of care (as documented) at patient's floor/unit and/or counseling patient: Coding Level of Care Code 71177 INT INP/OBS CARE 2/55MIN Diagnoses Acute renal failure N17.9 Bladder cancer C67.9 Hydronephrosis N13.30 Time Spent (min) 60
[2022-11-27 16:25] LABS: BUN Creatinine Ratio 14.8 (10-20); Calcium 7.8 mg/dl (8.6-10.3); Est GFR (African American) 7.4 ml/min; Est GFR (Non-African American) 6.4 ml/min; Potassium 3.9 mmol/L (3.5-5.1)
[2022-11-27] MEDS: ACETAMINOPHEN 325 MG TAB PO PRN (16:44)
--- NOTE | 2022-11-27 17:44 | Ultrasound Report ---
LEFT BACK ULTRASOUND CLINICAL HISTORY: left mid back ? fluid collection vs. lipoma COMPARISON STUDY: CT of the abdomen and pelvis November 26, 2022. TECHNIQUE: Sonography of the left back at site of palpable abnormalities was performed. FINDINGS: At site of palpable abnormalities within the left mid to lower back, note is made of suspec roderick echogenic subcutaneous lesions. These correspond to partially visualize fat-containing lesions on prior abdominal CT. These cannot be accurately measured by sonography given their large size. No def inite color flow is identified within these lesions. IMPRESSION: Echogenic subcutaneous lesions of the left mid and lower back which correspond to the pa lpable abnormalities. One of these corresponds to a partially visualize fat-containing lesion on rece nt abdominal CT. These likely reflect lipomas however are suboptimally assessed by sonography. Clinic al follow-up to ensure stability is recommended. If progressive enlargement, a chest CT is recommende d. ACT 112: Negative or not required by law. Electronically signed by: Hemant Ortega M.D. 11/27/2022 5:43 PM
[2022-11-27] MEDS: FLUCONAZOLE 100 MG TAB PO SCH (18:38)
[2022-11-28] MEDS: PLASMA-LYTE A 1,000 ML IV SCH ×3 (01:08→17:09)
[2022-11-28] MEDS: SODIUM BICARBONATE 650 MG TAB PO SCH ×3 (05:39→21:51)
[2022-11-28 07:50] LABS: Hematocrit (blood only) 32.1 % (42.0-52.0); Hemoglobin 10.8 g/dl (14.0-18.0); Mean Corpuscular Hemoglobin 27.1 pg (25.0-34.0); Mean Corpuscular Hgb Conc 33.6 g/dL (32.0-36.0); Mean Corpuscular Volume 80.5 fL (80.0-100.0); Mean Platelet Volume 10.8 fL (9.4-12.4); Platelet Count 169 K/uL (130-400); RDW Coefficient of Variation 16.6 % (11.5-14.5); RDW Standard Deviation 48.6 fL (36.4-46.3); Red Blood Count 3.99 M/uL (4.70-6.10)
[2022-11-28 08:02] LABS: Creatinine Clr Calc Pharmacy 9.7 ml/min; Est GFR (African American) 9.5 ml/min; Est GFR (Non-African American) 8.2 ml/min
[2022-11-28 08:03] LABS: BUN Creatinine Ratio 15.9 (10-20); Calcium 8.2 mg/dl (8.6-10.3)
[2022-11-28 08:04] LABS: Albumin Level 2.8 gm/dl (3.4-5.0); Bilirubin Direct 0.1 mg/dl (0-0.2); Bilirubin,Total 0.3 mg/dl (0.2-1.0); Phosphorus 4.3 mg/dl (2.5-4.9); Total Protein 6.4 gm/dl (6.0-8.3)
--- NOTE | 2022-11-28 08:07 | Hospitalist Progress Note ---
Date of Service November 28, 2022 Assessment & Plan (1) KENDRICK (acute kidney injury): Plan: Creatinine 12.75->6.11 with IV fluids, Nephrology consult appreciated, no need for emergent dialysis. Continue Plasmalyte fluids, monitor UOP as much as able (does have some incontinence and refusing Kennedy at this time). Receiving Phoslo, as well as sodium bicarb for metabolic acidosis. Daily renal function panel. CTAP with stents seemingly with good placement, Urology consulted, recommending treatment of Yeast in urine, fluconazole 400mg daily renal dosing started (KATIA pierre recommends EKG and LFTs q2d while on this). Urology to exhcange stents on 11/[address] Krishnamurthy, sooner if clinically worsens. Patient may need percutaneous nephrostomy tubes in the future if he fails retrograde management. (2) Hyperkalemia, diminished renal excretion: Plan: K 5.9 on admission in setting of severe, acute renal dysfunction, now resolved with IVF (3) Left flank mass: Plan: Noted on nursing exam 11/27, patient did not know it was there Nontender, no evidence of infection on exam nor is patient's WBC count elevated US suggests lipomatous mass, follow up with PCP (4) Hypertension: Plan: Borderline hypotension, holding the following: Amlodipine Chlorthalidone Metoprolol (5) PAF (paroxysmal atrial fibrillation): Plan: Rate controlled. Bradycardic at times. Continue Amiodarone HR range in last 24 hours of 50s-80s, holding off on metoprolol for now Holding Eliquis for CrCl 9 and given upcoming stent exchange, resume as able (6) Diabetes mellitus, type 2: Plan: Chronic Hold Metformin, BSGs are within acceptable range for age on dietary modification (7) Dyslipidemia: Plan: Chronic Hold Atorvastatin Plan Anticipate need for rehab on discharge; was recommended on last admission but patient declined at that time. Admits that he declined further at home and desirous of rehab placement on discharge this time. Admission and Anticipated Discharge Date Admission Date: November 26, 2022 Subjective No overnight events. Complaints of being cold, no chest pain, SOB, nausea, abdominal pain. Review of Systems Review of Systems: All systems reviewed & are unremarkable except as noted in Subjective Physical Exam Constitutional: WD/WN, vitals as above Respiratory: normal respiratory effort, lungs clear to auscultation Cardiovascular: HR regular, non-tachycardic, no murmurs, no peripheral edema Skin: no rashes, warm and dry left upper flank ~[id number] mass, soft, nontender, no surrounding erythema Psychiatric: A+Ox3, euthymic affect Results & Data Results & Data Vital Signs (Past 12 Hours) Vital Signs Temp Pulse Pulse Pulse Resp BP Pulse Ox 11/28/22 07:51 36.8 C 74 18 156/72 H 97 11/28/22 05:00 11/28/22 02:05 36.7 C 69 18 140/65 98 11/27/22 23:38 64 11/27/22 22:37 36.4 C L 66 18 121/57 L 97 O2 Del Method O2 Del Method 11/28/22 07:51 Room Air 11/28/22 05:00 Room Air 11/28/22 02:05 Room Air 11/27/22 23:38 11/27/22 22:37 Room Air PG Care Time/CCT Total # of Minutes Spent Total Time Spent with Patient: Total time spent is greater than 50% in coordination of care (as documented) at patient's floor/unit and/or counseling patient: Coding Level of Care Code 62062 SUB INP/OBS CARE 3/50MIN Diagnoses KENDRICK (acute kidney injury) N17.9 Hyperkalemia, diminished renal excretion E87.5 Left flank mass R19.00 Hypertension I10 PAF (paroxysmal atrial fibrillation) I48.0 Diabetes mellitus, type 2 E11.9 Dyslipidemia E78.5
--- NOTE | 2022-11-28 08:44 | Urology Progress Note ---
Date of Service November 28, 2022 Assessment & Plan (1) Acute renal failure: (2) Bladder cancer: (3) Hydronephrosis: Plan: Patient afebrile and hemodynamically stable Labscreatinine continues to downtrend (6.11), no leukocytosis, Hgb 10.8 - continue to trend labs Urine culture prelim growing yeast (Hx of Tati glabrata) Recommend treatment of yeast given prior funguria history and indwelling stents He was started on Fluconazole - continue and follow culture Last bilateral stent exchange on 09/24/2022 No acute intervention planned today Continue hydration, maximum drainage and optimizing patient with antifungals Tentatively plan for stent exchange later this week with Dr. Krishnamurthy, sooner if patient becomes febrile or creatinine worsening Patient may be failing retrograde management and may eventually require management with percutaneous nephrostomy tubes He has a condom catheter in place and urine looks clearer today Recommend monitor urine output Will make NPO at [place] Continue supportive care and medical management per hospital service will follow Admission and Anticipated Discharge Date Admission Date: November 26, 2022 Subjective Patient seen and examined at bedside this morning. Subjectively improving. No acute issues overnight. Condom catheter in place draining clear yellow urine with occasional sediment. He notes some discomfort in penis with urination. Denies hematuria Denies nausea, vomiting, fever or chills. Review of Systems Constitutional: as per Subjective / HPI Gastrointestinal: as per Subjective / HPI Genitourinary: + as per Subjective / HPI Physical Exam Constitutional: + thin; no acute distress Respiratory: normal respiratory effort; no respiratory distress and no labored breathing Gastrointestinal (Abdomen): Inspection/Auscultation: abdomen normal to inspection; abdomen not distended Musculoskeletal: Head/Neck/Chest: normocephalic Neurologic: moves all extremities and awake Psychiatric: Orientation: alert and oriented x 3 Genitourinary: Condom catheter intact and draining clear yellow urine with occasional sediment Results & Data Vital Signs (Past 12 Hours) Vital Signs Temp Pulse Pulse Pulse Resp BP Pulse Ox 11/28/22 08:08 71 11/28/22 07:51 36.8 C 74 18 156/72 H 97 11/28/22 05:00 11/28/22 02:05 36.7 C 69 18 140/65 98 11/27/22 23:38 64 11/27/22 22:37 36.4 C L 66 18 121/57 L 97 O2 Del Method O2 Del Method 11/28/22 08:08 11/28/22 07:51 Room Air 11/28/22 05:00 Room Air 11/28/22 02:05 Room Air 11/27/22 23:38 11/27/22 22:37 Room Air PG Care Time/CCT Total # of Minutes Spent Total Time Spent with Patient: Total time spent is greater than 50% in coordination of care (as documented) at patient's floor/unit and/or counseling patient: Coding Level of Care Code 08532 SUB INP/OBS CARE 06/06MIN Diagnoses Acute renal failure N17.9 Bladder cancer C67.9 Hydronephrosis N13.30
[2022-11-28] MEDS: AMIODARONE 200 MG TAB PO SCH ×2 (08:47→17:03)
[2022-11-28] MEDS: FINASTERIDE 5 MG TAB PO SCH (08:47)
[2022-11-28] MEDS: CALCIUM ACETATE 667 MG CAP/TAB PO SCH ×3 (08:47→17:03)
[2022-11-28] MEDS: CLOPIDOGREL BISULFATE 75 MG TAB PO SCH (08:47)
--- NOTE | 2022-11-28 10:43 | Nephrology Progress Note ---
Date of Service November 28, 2022 Assessment & Plan (1) KENDRICK (acute kidney injury): Plan: Volume status improved. Creatinine slowly decreasing. Electrolytes acceptable. There is no emergent indication for dialysis. Neo denies any notable uremic symptoms. He continues to struggle emptying bladder. Urology consultation appreciated. Stent exchange anticipated later this week. Continue IVF to encourage slightly positive fluid balance. Document I/O's as able. Repeat metabolic profile tomorrow AM. Medications appropriate for kidney function. Discontinue metformin. Continue to hold lisinopril and chlorthalidone. (2) PAF (paroxysmal atrial fibrillation): Plan: Remains on amiodarone and Eliquis appropriately dosed for kidney function. Tolerating therapy well. (3) Hypertension: Plan: Antihypertensives held. BP acceptable. (4) S/P ureteral stent placement: Plan: Urology consultation reviewed. Anticipate stent exchange later this week. Unfortunately, unable to tolerate Kennedy placement. Admission and Anticipated Discharge Date Admission Date: November 26, 2022 Subjective No acute events overnight. No complaints this AM. Appetite is fair. Denies nausea or any other GI complaints. Denies pain. No fevers or chills. Remains incontinent of urine. Struggles to void small amounts intermittently on his own. Continues to experience pain and discomfort in penis when voiding. Condom catheter placed but difficulty securing in place. Review of Systems Review of Systems: All systems reviewed & are unremarkable except as noted in HPI & below Physical Exam Constitutional: well developed and + thin; no acute distress Eyes: no scleral abnormality and no corneal abnormality ENMT: Mouth: no oral mucosal abnormality and oral mucous membranes not dry Neck: normal visual inspection and trachea midline Respiratory: normal respiratory effort Auscultation: lungs clear to auscultation bilaterally Cardiovascular: Rate/Rhythm: regular rate Heart Sounds: normal S1 and normal S2 Extremities: no edema Musculoskeletal: Extremities: no cyanosis and no clubbing Skin: + turgor decreased; no jaundice Neurologic: Motor/Sensory: no tremor and no asterixis Psychiatric: Orientation: alert and oriented x 3 Results & Data Vital Signs (Past 12 Hours) Vital Signs Temp Pulse Pulse Resp BP Pulse Ox O2 Del Method 11/28/22 08:08 71 11/28/22 07:51 36.8 C 74 18 156/72 H 97 Room Air 11/28/22 05:00 11/28/22 02:05 36.7 C 69 18 140/65 98 Room Air 11/27/22 23:38 64 O2 Del Method 11/28/22 08:08 11/28/22 07:51 11/28/22 05:00 Room Air 11/28/22 02:05 11/27/22 23:38 Laboratory Results Laboratory Results - last 24 hr 11/27/22 11/27/22 11/27/22 11:09 15:35 16:21 WBC RBC Hgb Hct MCV MCH MCHC RDW Std Deviation RDW Coeff of Elsi Plt Count MPV Sodium 135 L Potassium 3.9 Chloride 103 Carbon Dioxide 20 L Anion Gap 12 H BUN 111 H Creatinine 7.49 H* D Est Cr Clr Drug Dosing 8.0 Est GFR ( Amer) 7.4 Est GFR (Non-Af Amer) 6.4 BUN/Creatinine Ratio 14.8 Glucose 110 H POC Glucose 136 H 116 H Calcium 7.8 L Phosphorus Total Bilirubin Direct Bilirubin AST ALT Alkaline Phosphatase Total Protein Albumin 11/28/22 11/28/22 07:09 07:09 WBC 7.50 RBC 3.99 L Hgb 10.8 L Hct 32.1 L MCV 80.5 MCH 27.1 MCHC 33.6 RDW Std Deviation 48.6 H RDW Coeff of Elsi 16.6 H Plt Count 169 MPV 10.8 Sodium 138 Potassium 4.0 Chloride 104 Carbon Dioxide 22 Anion Gap 12 H BUN 97 H Creatinine 6.11 H* D Est Cr Clr Drug Dosing 9.7 Est GFR ( Amer) 9.5 Est GFR (Non-Af Amer) 8.2 BUN/Creatinine Ratio 15.9 Glucose 94 POC Glucose Calcium 8.2 L Phosphorus 4.3 D Total Bilirubin 0.3 Direct Bilirubin 0.1 AST 9 L ALT 5 L Alkaline Phosphatase 65 Total Protein 6.4 Albumin 2.8 L PG Care Time/CCT Total # of Minutes Spent Total Time Spent with Patient: Total time spent is greater than 50% in coordination of care (as documented) at patient's floor/unit and/or counseling patient: Coding Level of Care Code 65761 SUB INP/OBS CARE 3/50MIN Diagnoses KENDRICK (acute kidney injury) N17.9 PAF (paroxysmal atrial fibrillation) I48.0 Hypertension I10 S/P ureteral stent placement Z96.0
--- NOTE | 2022-11-28 14:55 | Electrocardiogram Report ---
Test Reason : Blood Pressure : / mmHG Vent. Rate : 082 BPM Atrial Rate : 082 BPM P-R Int : 140 ms QRS Dur : 088 ms QT Int : 372 ms P-R-T Axes : 074 051 063 degrees QTc Int : 434 ms Normal sinus rhythm Normal ECG When compared with ECG of 26-NOV-2022 10:56, Nonspecific T wave abnormality now evident in Inferior leads Confirmed by Hola Easley ([id number]) on 11/28/2022 2:55:13 PM Referred By: REFERRED SELF Confirmed By:Hola Easley
[2022-11-28] MEDS: FLUCONAZOLE 100 MG TAB PO SCH (17:03)
[2022-11-28] MEDS: HEPARIN SOD 5,000 UNIT/0.5 ML VIAL SQ SCH (20:41)
[2022-11-29] MEDS: PLASMA-LYTE A 1,000 ML IV SCH (01:03)
[2022-11-29] MEDS: SODIUM BICARBONATE 650 MG TAB PO SCH ×2 (05:34→14:00)
[2022-11-29 07:44] LABS: Albumin Level 2.6 gm/dl (3.4-5.0); BUN Creatinine Ratio 17.6 (10-20); Bilirubin,Total 0.2 mg/dl (0.2-1.0); Calcium 8.3 mg/dl (8.6-10.3); Creatinine Clr Calc Pharmacy 13.5 ml/min; Est GFR (African American) 14.2 ml/min; Est GFR (Non-African American) 12.3 ml/min; Potassium 4.1 mmol/L (3.5-5.1); Total Protein 5.8 gm/dl (6.0-8.3)
[2022-11-29] MEDS: FINASTERIDE 5 MG TAB PO SCH (08:20)
[2022-11-29] MEDS: AMIODARONE 200 MG TAB PO SCH ×2 (08:21→17:05)
[2022-11-29] MEDS: CALCIUM ACETATE 667 MG CAP/TAB PO SCH ×3 (08:21→17:04)
[2022-11-29] MEDS: HEPARIN SOD 5,000 UNIT/0.5 ML VIAL SQ SCH ×2 (08:22→21:53)
[2022-11-29] MEDS: CLOPIDOGREL BISULFATE 75 MG TAB PO SCH (08:22)
--- NOTE | 2022-11-29 08:25 | Urology Progress Note ---
Date of Service November 29, 2022 Assessment & Plan (1) Acute renal failure: (2) Bladder cancer: (3) Hydronephrosis: Plan: Patient afebrile and hemodynamically stable. Labscreatinine continues to downtrend (4.38), no leukocytosis, Hgb 10.8 - continue to trend labs. Urine culture grew out yeast not tati (Hx of Tati glabrata). Recommend treatment of yeast given prior funguria history and indwelling stents. He was started on Fluconazole - continue and recommend send culture for further speciation of yeast. Last bilateral stent exchange on 09/24/2022. CT previously reviewed and discussed. Recommend bilateral stent exchange today with Dr. Krishnamurthy. Patient is in agreement. Proceed with cystoscopy, possible tumor resection, bilateral retrograde pyelogram and bilateral ureteral stent exchange. Risks and benefits of procedure reviewed with patient including risks of anesthesia, bleeding, infection, injury to surrounding tissues. Consent obtained. Will cover with IV Ciprofloxacin. Keep NPO for procedure today. Continue supportive care and medical management per hospital service. will follow ATTENDING NOTE: Acute on chronic renal failure with funguria and ill feelings. Improving renal function. Concern about stent obstruction. Bladder cancer with retention. Vitals improving. On antifungal. Will get preop antibiotics. Risks and benefits discussed at length for procedure. These include bleeding, infection, injury to surrounding tissues or organs, and risks associated with anesthesia. Patient states understanding and agrees to proceed. Will sign consent and proceed. Plan for cystoscopy with possible resection and stent exchange. Bilateral Admission and Anticipated Discharge Date Admission Date: November 26, 2022 Subjective Patient seen and examined at bedside this morning. No acute issues overnight. Though reports poor sleep. Voiding spontaneously into urinal. Continues to report discomfort with voiding, but no dysuria. No hematuria. Denies nausea, vomiting, fever or chills. No chest pain or shortness of breath. Review of Systems Constitutional: as per Subjective / HPI Respiratory: no dyspnea Cardiovascular: no chest pain Gastrointestinal: as per Subjective / HPI Genitourinary: + as per Subjective / HPI Physical Exam Constitutional: + thin; no acute distress Respiratory: normal respiratory effort; no respiratory distress and no labored breathing Gastrointestinal (Abdomen): Inspection/Auscultation: abdomen normal to inspection; abdomen not distended Musculoskeletal: Head/Neck/Chest: normocephalic Neurologic: moves all extremities and awake Psychiatric: Orientation: alert and oriented x 3 Results & Data Vital Signs (Past 12 Hours) Vital Signs Temp Pulse Pulse Resp BP BP Pulse Ox 11/29/22 07:58 36.9 C 65 18 126/68 97 11/29/22 05:19 87 11/29/22 05:00 11/29/22 03:35 11/29/22 03:00 36.6 C 67 18 134/71 96 11/29/22 00:00 70 11/28/22 23:14 36.7 C 74 18 123/70 97 11/28/22 21:38 Pulse Ox O2 Del Method O2 Del Method 11/29/22 07:58 Room Air 11/29/22 05:19 11/29/22 05:00 96 Room Air 11/29/22 03:35 Room Air 11/29/22 03:00 Room Air 11/29/22 00:00 11/28/22 23:14 Room Air 11/28/22 21:38 Room Air PG Care Time/CCT Total # of Minutes Spent Total Time Spent with Patient: Total time spent is greater than 50% in coordination of care (as documented) at patient's floor/unit and/or counseling patient: Coding Level of Care Code 63938 SUB INP/OBS CARE 06/06MIN Diagnoses Acute renal failure N17.9 Bladder cancer C67.9 Hydronephrosis N13.30
[2022-11-29] MEDS ORDERED: ceFAZolin 2000MG 2,000 MG/15 ML SYR IV ONE (10:48)
[2022-11-29] MEDS ORDERED: ceFAZolin 2,000 MG/15 ML IV PUSH IV ONE (10:51)
[2022-11-29] MEDS ORDERED: ePHEDrine sulfate 50 MG/ML AMP IV PRN (11:04)
[2022-11-29] MEDS ORDERED: fentaNYL citrate PF 100 MCG/2 ML VIAL IV PRN (11:04)
[2022-11-29] MEDS ORDERED: FLUMAZENIL 0.1 MG/1 ML 10 ML VIAL IV PRN (11:04)
[2022-11-29] MEDS ORDERED: NALOXONE HCL 0.4 MG/1 ML VIAL/CARP IV PRN (11:04)
[2022-11-29] MEDS ORDERED: PROMETHAZINE HCL 12.5 MG in SODIUM CHLORIDE 0.9% 50 ML IV PRN (11:04)
[2022-11-29] MEDS ORDERED: ATROPINE SULFATE 0.1 MG/ML 10ML SYR IV PRN (11:04)
[2022-11-29] MEDS ORDERED: LABETALOL HCL IV 5 MG/ML 20ML IV PRN (11:04)
[2022-11-29] MEDS ORDERED: ONDANSETRON INJ 2 MG/ML 2 ML VIAL IV PRN ×2 (11:04→14:36)
--- NOTE | 2022-11-29 11:04 | Anesthesiology Consultation ---
Date of Service November 29, 2022 Assessment & Plan Chart Review Chart Review: Acceptable Risk for Surgery and Patient NOT seen in Pre Admission Testing Consults Requested none ASA ASA4 Proposed Anesthesia Anesthesia Type: General and MAC Risk / Benefits Reviewed With: PT / POA / Parent / Guardian, Accepts Plan and Informed Consent Obtained History Surgery Operation Date: 11/29/22 09:00 Proposed Procedures p Cystoscopy, Possible Resection of Bladder, Bilateral Stent Exchange - Faheem Krishnamurthy, DO Height/Weight Height: 5 ft 10 in Weight: 65.6 kg Allergies Allergy/AdvReac Type Severity Reaction Status Date / Time No Known Allergies Allergy Verified 10/30/22 08:23 Medications Home Medications Medication Instructions Recorded Confirmed Last Taken chlorthalidone 25 mg tablet 12.5 mg PO BID #90 tabs 10/24/21 11/26/22 10/27/22 metformin 500 mg tablet,extended 500 mg PO BID #180 tabs 03/19/22 11/26/22 10/27/22 release 24 hr metoprolol succinate 200 mg 200 mg PO BID #180 tabs 06/13/22 11/26/22 10/27/22 tablet,extended release 24 hr atorvastatin 80 mg tablet 80 mg PO QAM #90 tabs 07/09/22 11/26/22 10/27/22 amlodipine 10 mg tablet 10 mg PO QAM 09/14/22 11/26/22 10/27/22 oxybutynin chloride 5 mg tablet 5 mg PO Q8H PRN bladder spasms #20 09/24/22 11/26/22 10/27/22 tabs finasteride 5 mg tablet 5 mg PO DAILY #30 tabs 10/02/22 11/26/22 10/27/22 amiodarone 200 mg tablet 200 mg PO BIDM 30 days #60 tabs 11/06/22 11/26/22 Unknown apixaban 5 mg tablet (Eliquis) 5 mg PO BID 30 days #60 tabs 11/06/22 11/26/22 Unknown clopidogrel 75 mg tablet 75 mg PO QAM 30 days #30 tabs 11/06/22 11/26/22 Unknown Active Medications Generic Name Dose Route Start Last Admin Trade Name Freq PRN Reason Stop Dose Admin Acetaminophen 650 mg 11/26/22 05:55 11/27/22 16:44 Acetaminophen 325 Mg Tab PO 12/26/22 05:54 650 mg Q4H PRN Administration Pain or Fever Amiodarone HCl 200 mg 11/26/22 08:00 11/29/22 08:21 Amiodarone 200 Mg Tab PO 12/26/22 07:59 200 mg BIDM MITCH Administration Calcium Acetate 667 mg 11/26/22 17:00 11/29/22 08:21 Calcium Acetate 667 Mg Cap/Tab PO 12/26/22 16:59 667 mg TIDM MITCH Administration Clopidogrel Bisulfate 75 mg 11/26/22 09:00 11/29/22 08:22 Clopidogrel Bisulfate 75 Mg Tab PO 12/26/22 08:59 75 mg QAM MITCH Administration Finasteride 5 mg 11/26/22 09:00 11/29/22 08:20 Finasteride 5 Mg Tab PO 12/26/22 08:59 5 mg DAILY MITCH Administration Fluconazole 400 mg 11/27/22 17:30 11/28/22 17:03 Fluconazole 100 Mg Tab PO 12/07/22 17:29 400 mg Q24H MITCH Administration Heparin Sodium (Porcine) 5,000 units 11/28/22 21:00 11/29/22 08:22 Heparin Sod 5,000 Unit/0.5 Ml Vial SQ 12/28/22 20:59 5,000 units Q12 MITCH Administration Parenteral Electrolytes 1,000 mls @ 80 mls/hr 11/27/22 09:00 11/29/22 01:03 Plasma-Lyte A Ph 7.4 IV 12/27/22 08:59 80 mls/hr .[id number] MITCH Administration Oxybutynin Chloride 5 mg 11/26/22 05:55 11/29/22 08:20 Oxybutynin Chloride 5 Mg Tab PO 12/26/22 05:54 5 mg Q8H PRN Administration bladder spasms Sodium Bicarbonate 1,300 mg 11/26/22 14:00 11/29/22 05:34 Sodium Bicarbonate 650 Mg Tab PO 12/26/22 13:59 1,300 mg Q8 MITCH Administration NPO Date Last Intake of Fluids: 11/28/22 Time Last Intake of Fluids: 20:00 Date Last Intake of Solids: 11/28/22 Time Last Intake of Solids: 17:00 Past Medical History Medical History ARF (acute renal failure) Benign enlargement of prostate Bladder cancer newly diagnosed 08/2022. CAD (coronary artery disease) "Multi-Vessel CAD s/p Ostial and Proximal LAD NEVA x 2 and OM1 NEVA 07/01/2018 (with residual borderline D2 stenosis, OM2 stenosis, RCA/PDA stenoses which are felt amenable to complex PCI" follows with [facility] Diabetes mellitus, type 2 NIDDM Dyslipidemia History of colon polyps Hypertension Low back pain Multi-vessel coronary artery stenosis Myocardial Infarction ~3 years ago. follows with Erik Beltran. Tubular adenoma of colon Exercise / Class Metabolic Activity III < 4 Walking/Shop/Light housework Past Family History Family History Father Non-Hodgkin's lymphoma Mother Multiple myeloma Sister Dyslipidemia Heart disease Hypertension Uncle Myocardial infarction Other No family history of adverse response to anesthesia Denies family history of Ovarian cancer Prostate cancer Breast cancer Colorectal cancer Past Surgical History Surgical History H/O colonoscopy 08/2016, repeat 5 yrs History of cardiac cath ~3 years ago, "failed stress test, needed cath", [facility] History of open reduction and internal fixation (ORIF) procedure Lt. Femur Stented coronary artery ~3 years ago, [facility], following cath at [facility], x1 stent (resolut summer) placed; now f/u Luis Manuel Beltran PA-C, [facility] Cardio. Past Anesthesia History No Hx of Anesthesia Complications and No Family Hx of Anesthesia Complications History of PONV No Hx of PONV and No Hx of Motion Sickness Social History Smoking Status: Former smoker tobacco type: cigarettes Do You Dip or Chew Tobacco: No Hx Alcohol Use: No Alcohol type: beer Hx Substance Use: No substance use type: does not use Physical Exam Vital Signs Last Vital Signs Temp 37.2 C 11/29/22 10:27 Pulse 66 11/29/22 10:27 Resp 20 11/29/22 10:27 BP 146/74 H 11/29/22 10:27 Pulse Ox 97 11/29/22 10:27 O2 Del Method Room Air 11/29/22 10:27 O2 Flow Rate 0 11/26/22 13:13 Constitutional not cachectic ENMT Mouth: + dentition abnormality and + poor dentition Thyromental Distance: > or= 3.5 Finger Breadths Mallampati Class: II Neck normal visual inspection and + facial hair; + trachea not midline and neck extension not limited Respiratory normal respiratory effort Auscultation: + wheezes Cardiovascular Rate/Rhythm: regular rate and regular rhythm Heart Sounds: no murmur Vessels: no carotid bruit Musculoskeletal Spine: normal cervical ROM and no pain with cervical ROM Extremities: full ROM of extremities Psychiatric Orientation: alert and oriented x 3 Testing Laboratory Results 11/28/22 07:09 11/29/22 06:44 Urine Color Dark Yellow 11/26/22 03:02 Urine Appearance Turbid (Clear) A 11/26/22 03:02 Urine pH 5.5 (4.5-7.5) 11/26/22 03:02 Ur Specific White 1.014 (1.000-1.030) 11/26/22 03:02 Urine Protein 3+ (Negative) H 11/26/22 03:02 Urine Glucose (UA) Negative (Negative) 11/26/22 03:02 Urine Ketones Trace (Negative) H 11/26/22 03:02 Urine Nitrite Negative (Negative) 11/26/22 03:02 Ur Leukocyte Esterase 3+ (Negative) H 11/26/22 03:02 Urine WBC (Auto) >30 /hpf (0-5) H 11/26/22 03:02 Urine RBC (Auto) 5-10 /hpf (0-4) H 11/26/22 03:02 U Hyaline Cast (Auto) 0 /lpf (0-5) 11/26/22 03:02 U Epithel Cells (Auto) >30 /lpf (0-5) H 11/26/22 03:02 Urine Bacteria (Auto) Negative (Negative) 11/26/22 03:02 11/26/22 03:02 Urine Culture - Final Urine,Straight Cath Yeast not Tati albicans/dub 11/29/22 10:25 POC Glucose 90
[2022-11-29] MEDS ORDERED: fentaNYL citrate PF 100 MCG/2 ML VIAL ONE (11:40)
[2022-11-29] MEDS ORDERED: PROPOFOL IV EMULSION 10 MG/ML 20 ML VIAL IV ONE ×2 (11:49→12:54)
[2022-11-29] MEDS ORDERED: LIDOCAINE 2% 2 ML VIAL/AMP(20MG/ML) INFIL ONE (11:49)
[2022-11-29] MEDS ORDERED: ONDANSETRON INJ 2 MG/ML 2 ML VIAL ONE (11:49)
--- NOTE | 2022-11-29 12:24 | Hospitalist Progress Note ---
Date of Service November 29, 2022 Assessment & Plan (1) KENDRICK (acute kidney injury): Plan: Creatinine 12.75->4.38 with IV fluids, Nephrology consult appreciated, no need for emergent dialysis. Continue gentle Plasmalyte fluids, monitor UOP as much as able (does have some incontinence and refusing Kennedy at this time). Receiving Phoslo, as well as sodium bicarb for metabolic acidosis. Daily renal function panel. Urology consulted, s/p stent exchange 11/[address] Krishnamurthy with noted catalina purulence within the kidneys bilaterally, cultures collected. Urine culture this admission with Yeast (non Tati), treating with fluconazole 400mg daily for at least 7 days. Patient may need percutaneous nephrostomy tubes in the future if he fails retrograde management. (2) Hyperkalemia, diminished renal excretion: Plan: K 5.9 on admission in setting of severe, acute renal dysfunction, resolved with IVF (3) Left flank mass: Plan: Noted on nursing exam 11/27, patient did not know it was there Nontender, no evidence of infection on exam nor is patient's WBC count elevated US suggests lipomatous mass, follow up with PCP (4) Hypertension: Plan: Borderline hypotension at times, holding the following: Amlodipine Chlorthalidone Metoprolol (5) PAF (paroxysmal atrial fibrillation): Plan: Rate controlled. Bradycardic at times. Continue Amiodarone HR range in last 24 hours of 50s-80s, holding off on metoprolol for now as he is on high dose and had HR 50s last night Holding Eliquis for CrCl 13 and given upcoming stent exchange, resume as able (6) Diabetes mellitus, type 2: Plan: Chronic Hold Metformin, BSGs are within acceptable range for age on dietary modification (7) Dyslipidemia: Plan: Chronic Hold Atorvastatin (8) UTI (urinary tract infection): Plan: Treating as above, with fluconazole, no other isolates Plan Anticipate need for rehab on discharge; was recommended on last admission but patient declined at that time. Admits that he declined further at home and desirous of rehab placement on discharge this time. Approaching dischargeability in the next 48 hours if symptoms continue to improve, and if creatinine continues to improve. Admission and Anticipated Discharge Date Admission Date: November 26, 2022 Subjective No overnight events. A bit nauseated after procedure this afternoon. No abdominal pain, chest pain, SOB. Review of Systems Review of Systems: All systems reviewed & are unremarkable except as noted in Subjective Physical Exam Constitutional: WD/WN, vitals as above Respiratory: normal respiratory effort, lungs clear to auscultation Cardiovascular: HR irregularly irregular, non-tachycardic, no murmurs, no peripheral edema Gastrointestinal (Abdomen): normal bowel sounds, soft, nontender, no hepatosplenomegaly Skin: no rashes, warm and dry Psychiatric: A+Ox3, euthymic affect Results & Data Results & Data Vital Signs (Past 12 Hours) Vital Signs Temp Pulse Pulse Resp BP BP Pulse Ox 11/29/22 10:27 37.2 C 66 20 146/74 H 97 11/29/22 08:00 65 11/29/22 07:58 36.9 C 65 18 126/68 97 11/29/22 05:19 87 11/29/22 05:00 11/29/22 03:35 11/29/22 03:00 36.6 C 67 18 134/71 96 Pulse Ox O2 Del Method O2 Del Method 11/29/22 10:27 Room Air 11/29/22 08:00 11/29/22 07:58 Room Air 11/29/22 05:19 11/29/22 05:00 96 Room Air 11/29/22 03:35 Room Air 11/29/22 03:00 Room Air PG Care Time/CCT Total # of Minutes Spent Total Time Spent with Patient: Total time spent is greater than 50% in coordination of care (as documented) at patient's floor/unit and/or counseling patient: Coding Level of Care Code 81115 SUB INP/OBS CARE 3/50MIN Diagnoses KENDRICK (acute kidney injury) N17.9 Hyperkalemia, diminished renal excretion E87.5 Left flank mass R19.00 Hypertension I10 PAF (paroxysmal atrial fibrillation) I48.0 Diabetes mellitus, type 2 E11.9 Dyslipidemia E78.5 UTI (urinary tract infection) N39.0
[2022-11-29] MEDS ORDERED: DIATRIZOATE MEGLUMINE 30% 100ML VIAL INSTIL ONE (12:29)
--- NOTE | 2022-11-29 13:21 | Operative Report ---
PG Post Operative Report Pre & Post Diagnosis Operation Date: 11/29/22 09:00 Pre-Op Diagnosis: Acute kidney injury Post-Op Diagnosis: Acute kidney injury I identified the patient and participated in the time-out.: Yes Procedure Operation Date: 11/29/22 09:00 Actual Procedures Cystoscopy, bilateral ureteral dilation, aspiration, retrograde pyelogram, and b ilateral Stent Exchange Irrigation and evacuation of foreign body/debris. Dilation of bladder neck. (Bilateral) - Faheem Krishnamurthy DO Surgeon Faheem Krishnamurthy, II, DO Commission Auditor None Estimated Blood Loss 1 Findings Consistent with Post-Op Diagnosis Severe inflammation of bladder neck and bladder. Bilateral obstruction of the stents with severe hydroureter bilateral. Obstructing issue on the right proximal ureter possibly stricture versus external compression. Obstructing issue on left distal ureter possibly obstruction within the ureter from debris or stone versus stricture. Specimens Microanalysis: Urine right kidney Urine left kidney Drains 7 Bulgarian by 26 double-J bilateral Anesthesia Type MAC Complications none Disposition Disposition: Recovery Room Indications Patient with obstruction with an acute kidney injury on chronic kidney disease with history of bladder cancer. Due to hydronephrosis with stents in place for just over 2 months plan was to proceed with stent changes. Risks and benefits discussed at length. Description of Procedure Patient was consented and brought back to the operating room. Patient was placed under anesthesia in the supine position and moved to the dorsal lithotomy position. Patient was prepped and draped in the regular sterile fashion. A time out was completed. A 30degree Cystoscope was placed into the bladder and the entire bladder was examined. The bladder was severely inflamed. The bladder neck was significantly inflamed and irritated. A dilation need to be completed in order to be able to maneuver the scope. There was a moderate size diverticulum on the posterior wall. There was a moderate amount of inflammation around this as well. No obvious development of recurrence of tumor or nodule. Significant and severe inflammation was seen throughout. The stents were identified. They were coated in debris. There was an excessive amount of debris within the base of the bladder that needed to be irrigated free. Extensive irrigation was necessary in order to clear the bladder of the purulent appearing urine and debris. Some small blood clots were also able to be irrigated free. The UO's were identified. The stent was grasped and partially removed. A wire was then placed and the stent fully removed. The right wire only what advanced to the proximal ureter. The left wire would only advanced to the distal ureter. Starting on the right multiple attempts were made to try to pass into the renal pelvis. The UO was cannulized over the wire with a dual lumen catheter and a retrograde pyelogram was completed. The ureter was found to be severely dilated all the way down to the insertion into the bladder. The kidney had severe hydronephrosis. Extensive manipulation was necessary but eventually the wire was able to be advanced past utilizing the catheter. A large amount of purulent urine was found to be draining. This was aspirated and sent for analysis. A second wire was placed. A retrograde pyelogram was completed to confirm the placement of both wires. The proximal ureter underwent serial dilation in order to allow better access into the renal pelvis. A wire was maintained throughout the entire time. A final retrograde pyelogram was completed on the right. Over the wire a 7 Bulgarian by 26 double-J ureteral stent was placed and set to drainage. Attention was then taken to the left side. Multiple attempts to try to advance wires on the left had failed. The wire in the distal ureter was maintained throughout the process. A retrograde pyelogram had shown severe hydroureter with debris versus obstruction versus stone versus other material in the distal ureter. There was also an area of considerable narrowing in the distal ureter. This appears to be possibly extrinsic compression for stricture. The cystoscope was replaced and utilizing the dual-lumen catheter. Additional attempts to pass with a wire were attempted. Eventually 2 wires were able to be entered into the ureter. And utilizing the 5 Bulgarian open-ended catheter between the wires the area of narrowing was able to be bypassed. The 5 Bulgarian open-ende d catheter was then advanced into the renal pelvis. Yet again severe purulence was noted draining from the right side as well. This was sent for analysis. The area of narrowing in the distal ureter was then dilated. The wire was maintained and the catheter removed. With the wire in place, a 6 Fr Double J stent was placed. It was confirmed with fluoroscopy. With the stent in place, the bladder was emptied. Additional irrigation was necessary in order to clear out the debris within the bladder draining from the kidneys bilaterally. Extensive evacuation and irrigation of material was completed. The scope was removed. A 22 Bulgarian catheter was placed. Drainage was achieved. However on fluoroscopy it appeared that the right ureter was not draining well. A cystogram was completed. The tip of the catheter appeared to be within a diverticulum that had been previously discovered on the posterior wall. The balloon was deflated and the catheter was repositioned with the tip angled over to the right side. The balloon was then elevated. Considerably better drainage was then achieved and no pooling of contrast was noted to it within the bladder. Fluoroscopy was then used to confirm the placement of both stents within the renal pelvis and into the bladder. The patient was cleaned, aroused from anesthesia, and transferred to the pacu in stable condition having tolerated the procedure well with no complications. I was present and participated in all aspects of the procedure. The patient will be monitored in the PACU until transferred. We will maintain patient on the floor. We will monitor for return of renal function. Severe purulence was noted within the kidneys bilaterally likely causing significant obstruction of the stents. There was also considerable concern about narrowing within the ureter whether it be stricture versus obstruction of other kind. With the larger stents in place we will need to monitor. We will maintain the catheter for maximum drainage in order to allow the bladder to further heal. I attest to the content of the Intraoperative Record and any orders documented therein. Any exceptions are noted below.
--- NOTE | 2022-11-29 14:04 | Anesthesiology Progress Note ---
Date of Service November 29, 2022 Anesthesia Post Procedure Vital Signs Vital Signs: Temp Pulse Pulse Pulse Pulse Resp BP 11/29/22 14:00 62 14 11/29/22 13:50 58 L 13 11/29/22 13:40 36.2 C L 62 14 11/29/22 13:30 63 13 11/29/22 13:22 36.3 C L 69 15 11/29/22 10:27 37.2 C 66 20 11/29/22 08:00 65 11/29/22 07:58 36.9 C 65 18 11/29/22 05:19 87 11/29/22 05:00 11/29/22 03:35 11/29/22 03:00 36.6 C 67 18 134/71 11/29/22 00:00 70 11/28/22 23:14 36.7 C 74 18 123/70 11/28/22 21:38 11/28/22 19:29 37.0 C 72 20 130/60 11/28/22 16:00 36.8 C 77 18 145/75 H 11/28/22 15:40 72 BP Pulse Ox Pulse Ox O2 Del Method O2 Del Method 11/29/22 14:00 126/69 96 Room Air 11/29/22 13:50 136/70 99 Room Air 11/29/22 13:40 132/72 95 Room Air 11/29/22 13:30 129/67 100 Room Air 11/29/22 13:22 138/77 100 Room Air 11/29/22 10:27 146/74 H 97 Room Air 11/29/22 08:00 11/29/22 07:58 126/68 97 Room Air 11/29/22 05:19 11/29/22 05:00 96 Room Air 11/29/22 03:35 Room Air 11/29/22 03:00 96 Room Air 11/29/22 00:00 11/28/22 23:14 97 Room Air 11/28/22 21:38 Room Air 11/28/22 19:29 94 Room Air 11/28/22 16:00 96 Room Air 11/28/22 15:40 Transfer of Care Handoff Completed per policy Notes Mental Status: alert / awake / arousable Patient Amnestic to Procedure: Yes Nausea / Vomiting: adequately controlled Pain: adequately controlled Airway Patency, RR, SpO2: stable & adequate BP & HR: stable & adequate Hydration State: stable & adequate Anesthetic Complications: no major complications apparent
--- NOTE | 2022-11-29 15:37 | Fluoroscopy Report ---
FL retrograde includes kub CLINICAL HISTORY: B/L TECHNIQUE: 14 views were obtained with the C-arm in the OR with the above procedure. Total fluoroscop y time was 475.3 seconds. Radiation dose was 76 mGy. Comparison: Comparison is made to CT abdomen pelvis 11/29/2022 FINDINGS/IMPRESSION: Intraoperative images were obtained of bilateral stent exchange with retrograde pyelograms demonstrating bilateral hydronephrosis. Please correlate with intraoperative fluoroscopy and operative report. ACT 112: Negative or not required by law. Electronically signed by: Sathya Goldman M.D. 11/29/2022 3:35 PM
--- NOTE | 2022-11-29 16:06 | Nephrology Progress Note ---
Date of Service November 29, 2022 Assessment & Plan (1) KENDRICK (acute kidney injury): Plan: Attributed to dehydration and obstruction. Creatinine improving with supportive care. Volume status acceptable. Continue IVF to encourage urine output. POD# 0 s/p ureteral stent exchange. Kennedy in place. Electrolytes acceptable. Urology consultation appreciated. Continue IVF to encourage slightly positive fluid balance. Document I/O's. Repeat metabolic profile tomorrow AM. Medications appropriate for kidney function. Discontinue metformin. Continue to hold lisinopril and chlorthalidone. (2) PAF (paroxysmal atrial fibrillation): Plan: Remains on amiodarone and Eliquis appropriately dosed for kidney function. Tolerating therapy well. (3) Hypertension: Plan: Antihypertensives held. BP slightly elevated. Possible sympathetic component. If BP remains elevated may restart amlodipine. (4) S/P ureteral stent placement: Plan: POD#0 s/p stent exchange and removal of debris. Remains on Diflucan for Tati in urine. Tolerated procedure well. Kennedy in place. Admission and Anticipated Discharge Date Admission Date: November 26, 2022 Subjective No acute events overnight. No fevers or chills. s/p cystoscopy with stent exchange. Debris evacuated prior to retrograde pyelogram. Kennedy in place. Neo reports some nausea post procedure. He otherwise feels well. Review of Systems Review of Systems: All systems reviewed & are unremarkable except as noted in HPI & below Physical Exam Constitutional: well developed and + thin; no acute distress Eyes: no scleral abnormality and no corneal abnormality ENMT: Mouth: no oral mucosal abnormality and oral mucous membranes not dry Neck: normal visual inspection and trachea midline Respiratory: normal respiratory effort Auscultation: lungs clear to auscultation bilaterally Cardiovascular: Rate/Rhythm: regular rate and + irregularly irregular Heart Sounds: normal S1 and normal S2 Extremities: no edema Musculoskeletal: Extremities: no cyanosis and no clubbing Skin: + turgor decreased; no jaundice Neurologic: Motor/Sensory: no tremor and no asterixis Psychiatric: Orientation: alert and oriented x 3 Genitourinary: Kennedy in place Results & Data Vital Signs (Past 12 Hours) Vital Signs Temp Pulse Pulse Pulse Resp BP Pulse Ox 11/29/22 15:53 36.4 C L 70 18 165/75 H 99 11/29/22 15:36 36.4 C L 66 16 145/68 H 99 11/29/22 15:29 36.3 C L 63 16 147/71 H 98 11/29/22 14:48 36.3 C L 56 L 16 150/73 H 94 11/29/22 14:20 58 L 14 138/68 97 11/29/22 14:00 62 14 126/69 96 11/29/22 13:50 58 L 13 136/70 99 11/29/22 13:40 36.2 C L 62 14 132/72 95 11/29/22 13:30 63 13 129/67 100 11/29/22 13:22 36.3 C L 69 15 138/77 100 11/29/22 10:27 37.2 C 66 20 146/74 H 97 11/29/22 08:00 65 11/29/22 07:58 36.9 C 65 18 126/68 97 11/29/22 05:19 87 11/29/22 05:00 Pulse Ox O2 Del Method O2 Del Method 11/29/22 15:53 Room Air 11/29/22 15:36 Room Air 11/29/22 15:29 Room Air 11/29/22 14:48 Room Air 11/29/22 14:20 Room Air 11/29/22 14:00 Room Air 11/29/22 13:50 Room Air 11/29/22 13:40 Room Air 11/29/22 13:30 Room Air 11/29/22 13:22 Room Air 11/29/22 10:27 Room Air 11/29/22 08:00 11/29/22 07:58 Room Air 11/29/22 05:19 11/29/22 05:00 96 Room Air Laboratory Results Laboratory Results - last 24 hr 11/29/22 11/29/22 06:44 10:25 Sodium 141 Potassium 4.1 Chloride 105 Carbon Dioxide 27 Anion Gap 9 BUN 77 H D Creatinine 4.38 H D Est Cr Clr Drug Dosing 13.5 Est GFR ( Amer) 14.2 Est GFR (Non-Af Amer) 12.3 BUN/Creatinine Ratio 17.6 Glucose 99 POC Glucose 90 Calcium 8.3 L Total Bilirubin 0.2 Direct Bilirubin 0.0 AST 8 L ALT 5 L Alkaline Phosphatase 57 Total Protein 5.8 L Albumin 2.6 L PG Care Time/CCT Total # of Minutes Spent Total Time Spent with Patient: Total time spent is greater than 50% in coordination of care (as documented) at patient's floor/unit and/or counseling patient: Coding Level of Care Code 52924 SUB INP/OBS CARE 350MIN Diagnoses KENDRICK (acute kidney injury) N17.9 PAF (paroxysmal atrial fibrillation) I48.0 Hypertension I10 S/P ureteral stent placement Z96.0
[2022-11-29] MEDS: FLUCONAZOLE 100 MG TAB PO SCH (17:05)
[2022-11-30] MEDS: ACETAMINOPHEN 325 MG TAB PO PRN ×2 (01:16→16:15)
[2022-11-30] MEDS: PLASMA-LYTE A 1,000 ML IV SCH ×2 (03:25→16:15)
[2022-11-30] MEDS ORDERED: Nursing to Pharmacy Communication SCH (03:45)
[2022-11-30 06:52] LABS: Hematocrit (blood only) 31.7 % (42.0-52.0); Hemoglobin 10.3 g/dl (14.0-18.0); Mean Corpuscular Hemoglobin 27.1 pg (25.0-34.0); Mean Corpuscular Hgb Conc 32.5 g/dL (32.0-36.0); Mean Corpuscular Volume 83.4 fL (80.0-100.0); Mean Platelet Volume 10.8 fL (9.4-12.4); Platelet Count 142 K/uL (130-400); RDW Coefficient of Variation 17.5 % (11.5-14.5); RDW Standard Deviation 52.7 fL (36.4-46.3); White Blood Count 8.44 K/ul (4.8-10.8)
[2022-11-30 07:11] LABS: Anion Gap 8 (3-11); BUN Creatinine Ratio 15.8 (10-20); Blood Urea Nitrogen 59 mg/dl (6-23); Calcium 8.3 mg/dl (8.6-10.3); Carbon Dioxide 28 mmol/L (21-32); Chloride 101 mmol/L (98-107); Creatinine Clr Calc Pharmacy 17.6 ml/min; Est GFR (African American) 17.2 ml/min; Est GFR (Non-African American) 14.9 ml/min; Glucose 115 mg/dl (70-99(Fasting)); Potassium 4.2 mmol/L (3.5-5.1); Sodium 137 mmol/L (136-145)
[2022-11-30 07:14] LABS: Alanine Aminotransferase < 3 U/L (7-52); Albumin Level 2.6 gm/dl (3.4-5.0); Alkaline Phosphatase 64 U/L (34-104); Aspartate Aminotransferase 9 U/L (13-39); Bilirubin,Total 0.2 mg/dl (0.2-1.0); Phosphorus 3.5 mg/dl (2.5-4.9); Total Protein 5.8 gm/dl (6.0-8.3)
--- NOTE | 2022-11-30 08:11 | Hospitalist Progress Note ---
Date of Service November 30, 2022 Assessment & Plan (1) KENDRICK (acute kidney injury): Plan: Creatinine 12.75->3.74 with IV fluids, Nephrology consult appreciated, no need for emergent dialysis. Continue gentle Plasmalyte fluids, monitor UOP. Received Phoslo and sodium bicarb earlier in admission, since stopped. Urology consulted, s/p stent exchange 11/[address] Krishnamurthy with noted catalina purulence within the kidneys bilaterally, cultures pending. Urine culture this admission with Yeast (non Tati), treating with fluconazole 200mg daily for total of 14 days (can adjust to 400mg daily if renal function improves). WBC count normal. Patient may need percutaneous nephrostomy tubes in the future if he fails retrograde management. Maintain Kennedy catheter for now for maximum drainage and healing. Infectious Disease, Nephrology, and Urology consults appreciated this admission. (2) Hyperkalemia, diminished renal excretion: Plan: K 5.9 on admission in setting of severe, acute renal dysfunction, resolved with IVF, now 4.2 (3) Left flank mass: Plan: Noted on nursing exam 11/27, patient did not know it was there US suggests lipomatous mass, follow up with PCP (4) Hypertension: Plan: Borderline hypotension at times, holding the following: Chlorthalidone Metoprolol Resumed amlodipine 11/30, add others as able (5) PAF (paroxysmal atrial fibrillation): Plan: Rhythm controlled, bradycardic at times Continue amiodarone HR range in last 24 hours of 50s-80s, holding off on metoprolol for now given HR well controlled off of it at this time Eliquis resumed at 2.5mg BID dosing, dose discussed with pharmacy (nearly meets criteria for this lower dose, and also on fluconazole which increases Eliquis exposure) (6) Diabetes mellitus, type 2: Plan: Chronic Hold Metformin, BSGs are within acceptable range for age on dietary modification (7) Dyslipidemia: Plan: Chronic Resume Atorvastatin (8) UTI (urinary tract infection): Plan: Treating as above, with fluconazole, no other isolates but cultures pending Plan Anticipate need for rehab on discharge; was recommended on last admission but patient declined at that time. Admits that he declined further at home and desirous of rehab placement on discharge this time. Approaching dischargeability in the next 48 hours if symptoms continue to improve, and if creatinine continues to improve. Case Management aware. Admission and Anticipated Discharge Date Admission Date: November 26, 2022 Subjective No overnight events, post-operative nausea has resolved, no chest pain or SOB. Review of Systems Review of Systems: All systems reviewed & are unremarkable except as noted in Subjective Physical Exam Constitutional: WD/WN, vitals as above Respiratory: normal respiratory effort, lungs clear to auscultation Cardiovascular: HR irregularly irregular, non-tachycardic, no murmurs, no peripheral edema Gastrointestinal (Abdomen): normal bowel sounds, soft, nontender, no hepatosplenomegaly Skin: no rashes, warm and dry Psychiatric: A+Ox3, euthymic affect Results & Data Results & Data Vital Signs (Past 12 Hours) Vital Signs Temp Pulse Pulse Resp BP BP Pulse Ox 11/30/22 07:27 37.1 C 77 16 152/65 H 94 11/30/22 03:14 79 18 129/64 96 11/29/22 21:30 11/29/22 21:59 85 11/29/22 23:42 37.3 C 90 18 150/75 H 96 O2 Del Method 11/30/22 07:27 Room Air 11/30/22 03:14 Room Air 11/29/22 21:30 Room Air 11/29/22 21:59 11/29/22 23:42 Room Air PG Care Time/CCT Total # of Minutes Spent Total Time Spent with Patient: Total time spent is greater than 50% in coordination of care (as documented) at patient's floor/unit and/or counseling patient: Coding Level of Care Code 09679 SUB INP/OBS CARE 3/50MIN Diagnoses KENDRICK (acute kidney injury) N17.9 Hyperkalemia, diminished renal excretion E87.5 Left flank mass R19.00 Hypertension I10 PAF (paroxysmal atrial fibrillation) I48.0 Diabetes mellitus, type 2 E11.9 Dyslipidemia E78.5 UTI (urinary tract infection) N39.0
[2022-11-30] MEDS: FINASTERIDE 5 MG TAB PO SCH (08:12)
[2022-11-30] MEDS: CALCIUM ACETATE 667 MG CAP/TAB PO SCH ×3 (08:12→16:15)
[2022-11-30] MEDS: CLOPIDOGREL BISULFATE 75 MG TAB PO SCH (08:12)
[2022-11-30] MEDS: HEPARIN SOD 5,000 UNIT/0.5 ML VIAL SQ SCH (08:12)
[2022-11-30] MEDS: AMIODARONE 200 MG TAB PO SCH ×2 (08:13→16:16)
--- NOTE | 2022-11-30 09:03 | Urology Progress Note ---
Date of Service November 30, 2022 Assessment & Plan (1) Acute renal failure: (2) UTI (urinary tract infection): (3) S/P ureteral stent placement: (4) Hydronephrosis: Plan: POD #1 status post Cystoscopy, bilateral ureteral dilation, aspiration, retrograde pyelogram and bilateral stent exchange, irrigation of debris and dilation of bladder neck with Dr. Krishnamurthy Patient afebrile and hemodynamically stable Labs reviewedcreatinine trending down (3.74), WBC 8.44, hemoglobin 7.3 Urine culture grew out yeast not Tati Kidney aspirate cultures from intraop are pending Treated with Ancef preoperatively Continue Fluconazole and follow cultures Tolerating bilateral ureteral stents without bother Kennedy catheter patent and drainingplan to maintain at this time for maximum drainage and healing Continue supportive care, antibiotics/antifungals and medical management per hospital medicine service We will arrange outpatient follow-up with our service for further management will follow peripherally, contact our service with any further questions or concerns Admission and Anticipated Discharge Date Admission Date: November 26, 2022 Subjective Patient seen and examined at bedside this morning, chart reviewed. No acute issues overnight. Subjectively feeling well this morning. Denies flank, abdominal or suprapubic discomfort. Tolerating Kennedy catheter. Catheter patent and draining blood-tinged urine. Denies nausea, vomiting, fever or chills. Review of Systems Constitutional: as per Subjective / HPI Gastrointestinal: as per Subjective / HPI Genitourinary: + as per Subjective / HPI Physical Exam Constitutional: + thin; no acute distress Respiratory: normal respiratory effort; no respiratory distress and no labored breathing Gastrointestinal (Abdomen): Inspection/Auscultation: abdomen normal to inspection; abdomen not distended Musculoskeletal: Head/Neck/Chest: normocephalic Neurologic: moves all extremities and awake Psychiatric: Orientation: alert and oriented x 3 Genitourinary: Kennedy patent and draining blood-tinged urine Results & Data Vital Signs (Past 12 Hours) Vital Signs Temp Pulse Pulse Resp BP BP Pulse Ox 11/30/22 07:27 37.1 C 77 16 152/65 H 94 11/30/22 03:14 79 18 129/64 96 11/29/22 21:30 11/29/22 21:59 85 11/29/22 23:42 37.3 C 90 18 150/75 H 96 O2 Del Method 11/30/22 07:27 Room Air 11/30/22 03:14 Room Air 11/29/22 21:30 Room Air 11/29/22 21:59 11/29/22 23:42 Room Air PG Care Time/CCT Total # of Minutes Spent Total Time Spent with Patient: Total time spent is greater than 50% in coordination of care (as documented) at patient's floor/unit and/or counseling patient: Coding Level of Care Code 13157 SUB INP/OBS CARE 2/35MIN Diagnoses Acute renal failure N17.9 UTI (urinary tract infection) N39.0 S/P ureteral stent placement Z96.0 Hydronephrosis N13.30
[2022-11-30] MEDS: amLODIPine BESYLATE 5 MG TAB PO SCH (09:37)
--- NOTE | 2022-11-30 10:22 | Infectious Disease Consult ---
Date of Consultation November 30, 2022 Assessment & Plan (1) Acute renal failure: (2) UTI (urinary tract infection): (3) S/P ureteral stent placement: (4) Hydronephrosis: Plan Micro: 11/29 UCx kidney: pending 11/29 UCx kidney: pending 11/26 UCx: Yeast not Tati albicans/dub 10/30 UCx: Tati glabrata (S caspo, SDD fluc RUPERTO 16) Abx: Fluconazole 400 mg 11/27 - present Cefazolin (jose-op) 11/29 Problems: #Bilateral hydronephrosis despite bilateral ureteral stents: s/p stent exchange 11/29 #UCx with Tati glabrata #KENDRICK 77 yo M with history of bladder cancer s/p TURBT x 2 and bilateral ureteral stents (last exchanged 09/24/22), CAD s/p stents, paroxysmal afib, HTN, DM2, ORIF L femur who presented on 11/26 with failure to thrive at home, found to have KENDRICK, persistent bilateral hydronephrosis despite ureteral stents. He was recently admitted from 10/30-11/07 with KENDRICK, and CT A/P showing persistent bilateral hydronephrosis. A UCx at that time grew Tati glabrata, and he was treated with caspofungin --> fluconazole, and discharged with fluconazole 200 mg daily x 7 days. It was recommended that he discharge to rehab, however the pt opted to return home alone. Unclear whether the pt took the fluconazole on discharge. Pt has not been doing well at home, was not eating, having difficulty drinking, having progressive generalized weakness. He denied fevers, chills, and reported he was urinating as usual. On presentation, afebrile, hypotensive to 80s- 90s/50s, WBC 16, Cr 12.75 (1.93 on discharge). UA >30 WBCs. CXR without acute findings. CT A/P wo contrast showed bilateral double-J ureteral stents in standard position, moderate bilateral hydronephrosis, bladder wall thickening measuring up to 10 mm, similar to previous which may represent chronic spasm, cystitis, less likely neoplasm. UCx again grew yeast, not Tati albicans/dubliniensis. Pt was started on fluconazole 400 mg daily. Urology was consulted and took pt to OR on 11/29 for cystoscopy, bilateral ureteral dilation, aspiration, bilateral stent exchange, irrigation and evacuation of foreign body/debris, dilation of bladder neck. Per operative note, stents were coated in debris, and bladder had purulent appearing urine and debris requiring extensive irrigation. A large amount of purulent urine was draining from kidneys, sent for culture. Will treat the Tati glabrata that pt has grown in his urine culture, given the purulent urine seen in the OR, ureteral stents, and recent urologic procedures. The Tati glabrata was susceptible dose dependent on recent testing (10/30), with RUPERTO 16. However, a standard fluconazole dose is still adequate because urine fluconazole concentrations are substantially higher than blood levels (achieving urine levels >100 mcg/ml). Recommendations: -Follow-up 11/29 urine culture results -Ordered EKG to monitor QTc on fluconazole and amiodarone. If QTc prolonged, wou ld change to caspofungin -Given CrCl <50 currently, will decrease fluconazole dose to 200 mg daily. If CrCl increases >50, would return to fluconazole 400 mg daily. -Would treat for total 14 day course (11/27 - 12/10) Will continue to follow. Please note that there will be no ID notes over the weekend. If urgent/time- sensitive questions or concerns arise, please contact the Infectious Disease [facility] and ask to speak with the covering ID physician. Consultation Information Consultation was provided via telemedicine using two-way real-time interactive telecommunication between the patient and the telemedicine provider. For the duration of the visit, the provider was performing the assessment from a different facility than the patient. This includesuse of bluetooth stethoscope forauscultationperformed by the telepresenter that the telemedicine provider can hear if described in the physical exam. [facility] [employer]acker contact information: Please call [facility] . (Phone Number For Physician Use Only) After establishing a telemedicine visit, patient was: Patient was verified with two unique identifiers, Patient/authorized rep acknowledged consent and understanding and Gave permission to continue telehealth session Time Spent with Patient: Initial => 40 min History of Present Illness Reason for Consultation: Fungal UTI Requesting Physician: Dr. Ferro Attending Physician: Anna Ferro, DO History of Present Illness 77 yo M with history of bladder cancer s/p TURBT x 2 and bilateral ureteral stents (last exchanged 09/24/22), CAD s/p stents, paroxysmal afib, HTN, DM2, ORIF L femur who presented on 11/26 with failure to thrive at home. He was recently admitted from 10/30-11/07 with KENDRICK, and CT A/P showing persistent bilateral hydronephrosis. A UCx at that time grew Tati glabrata, and he was treated with caspofungin --> fluconazole, and discharged with fluconazole 200 mg daily x 7 days. It was recommended that he discharge to rehab, however the pt opted to return home alone. Pt has not been doing well at home, was not eating, having difficulty drinking, having progressive generalized weakness. He denied fevers, chills, and reported he was urinating as usual. On presentation, afebrile, hypotensive to 80s-90s/50s. Labs showed WBC 16, Cr 12.75 (1.93 on discharge). UA >30 WBCs. CXR without acute findings. CT A/P wo contrast showed bilateral double-J ureteral stents in standard position, moderate bilateral hydronephrosis, bladder wall thickening measuring up to 10 mm, similar to previous which may represent chronic spasm, cystitis, less likely neoplasm. UCx again grew yeast, not Tati albicans/dubliniensis. Pt was started on fluconazole 400 mg daily. Urology was consulted and took pt to OR on 11/29 for cystoscopy, bilateral ureteral dilation, aspiration, bilateral stent exchange, irrigation and evacuation of foreign body/debris, dilation of bladder neck. Per operative note, stents were coated in debris, and bladder had purulent appearing urine and debris requiring extensive irrigation. A large amount of purulent urine was draining from kidneys, sent for culture. On my evaluation, pt reports he is feeling well. He denies problems urinating while at home, but states he was not drinking enough fluids. He lives in a mobile home without AC and it gets very hot. He reports a sensation of dysuria ever since his last procedure in September. He states he has been mostly taking his medications at home, but he does struggle with them because he has so many meds. He does not recall the name of the medication fluconazole and whether he was taking it. Allergies Allergy/AdvReac Type Severity Reaction Status Date / Time No Known Allergies Allergy Verified 10/30/22 08:23 Home Medications Medication Instructions Recorded Confirmed Type chlorthalidone 25 mg tablet 12.5 mg PO BID #90 tabs 10/24/21 11/26/22 Rx metformin 500 mg tablet,extended 500 mg PO BID #180 tabs 03/19/22 11/26/22 Rx release 24 hr metoprolol succinate 200 mg 200 mg PO BID #180 tabs 06/13/22 11/26/22 Rx tablet,extended release 24 hr atorvastatin 80 mg tablet 80 mg PO QAM #90 tabs 07/09/22 11/26/22 Rx amlodipine 10 mg tablet 10 mg PO QAM 09/14/22 11/26/22 History oxybutynin chloride 5 mg tablet 5 mg PO Q8H PRN bladder spasms #20 09/24/22 11/26/22 Rx tabs finasteride 5 mg tablet 5 mg PO DAILY #30 tabs 10/02/22 11/26/22 Rx amiodarone 200 mg tablet 200 mg PO BIDM 30 days #60 tabs 11/06/22 11/26/22 Rx apixaban 5 mg tablet (Eliquis) 5 mg PO BID 30 days #60 tabs 11/06/22 11/26/22 Rx clopidogrel 75 mg tablet 75 mg PO QAM 30 days #30 tabs 11/06/22 11/26/22 Rx Patient History Medical History ARF (acute renal failure) Benign enlargement of prostate Bladder cancer newly diagnosed 08/2022. CAD (coronary artery disease) "Multi-Vessel CAD s/p Ostial and Proximal LAD NEVA x 2 and OM1 NEVA 07/01/2018 (with residual borderline D2 stenosis, OM2 stenosis, RCA/PDA stenoses which are felt amenable to complex PCI" follows with [place] cardiology Diabetes mellitus, type 2 NIDDM Dyslipidemia History of colon polyps Hypertension Low back pain Multi-vessel coronary artery stenosis Myocardial Infarction ~3 years ago. follows with Erik Beltran. Tubular adenoma of colon Surgical History H/O colonoscopy 08/2016, repeat 5 yrs History of cardiac cath ~3 years ago, "failed stress test, needed cath", [place] History of open reduction and internal fixation (ORIF) procedure Lt. Femur Stented coronary artery ~3 years ago, [facility], following cath at [facility], x1 stent (resolut summer) placed; now f/u Luis Manuel Beltran PA-C, [facility] Cardio. Family History Father Non-Hodgkin's lymphoma Mother Multiple myeloma Sister Dyslipidemia Heart disease Hypertension Uncle Myocardial infarction Other No family history of adverse response to anesthesia Denies family history of Ovarian cancer Prostate cancer Breast cancer Colorectal cancer Social History Smoking Status: Former smoker Second Hand Exposure: No; Do You Dip or Chew Tobacco: No; Hx Alcohol Use: No Hx Substance Use: No Preferred Language: German Communication Ability: Effective Visual Impairment: Limited Hearing Ability: Normal Aerial Gunner Required: No Beliefs That Will Affect Care: None marital status: Single Current Living Situation: Alone current occupational status: retired How many Children do You have: 0 Feels Safe at Home: Yes Childhood Exposure to Second-Hand Smoke: Yes caffeine: Yes Dental Care, Regularly: Yes Physical Activity Frequency: Daily Seatbelt Use: always Sunscreen Use: Yes Assistive Devices: Walker Review of System A complete ROS was performed and is negative except as mentioned in the HPI. Physical Exam Physical Exam: GEN: Well-appearing, in NAD. HEENT: anicteric RESP: No increased work of breathing ABD: Soft, non-distended. Non-tender to palpation. : khan in place draining red urine NEURO: Alert and oriented. Answers all questions appropriately. Speech not slurred. PSYCH: Normal mood, affect appropriate. Results & Data Vital Signs (Past 12 Hours) Vital Signs Temp Pulse Pulse Resp BP BP Pulse Ox 11/30/22 08:00 75 11/30/22 07:27 37.1 C 77 16 152/65 H 94 11/30/22 03:14 79 18 129/64 96 11/29/22 23:42 37.3 C 90 18 150/75 H 96 O2 Del Method 11/30/22 08:00 11/30/22 07:27 Room Air 11/30/22 03:14 Room Air 11/29/22 23:42 Room Air Laboratory Results Short CBC 11/30/22 Range/Units 06:03 WBC 8.44 (4.8-10.8) K/ul Hgb 10.3 L (14.0-18.0) g/dl Hct 31.7 L (42.0-52.0) % Plt Count 142 (130-400) K/uL BMP 11/30/22 06:03 Sodium 137 Potassium 4.2 Chloride 101 Carbon Dioxide 28 BUN 59 H Creatinine 3.74 H D Glucose 115 H Calcium 8.3 L Liver Function 11/30/22 Range/Units 06:03 Total Bilirubin 0.2 (0.2-1.0) mg/dl Direct Bilirubin 0.0 (0-0.2) mg/dl AST 9 L (13-39) U/L ALT < 3 L (7-52) U/L Alkaline Phosphatase 64 (34-104) U/L Albumin 2.6 L (3.4-5.0) gm/dl Medications Administered Current Inpatient Medications Acetaminophen (Acetaminophen 325 Mg Tab) 650 mg PO Q4H PRN PRN Reason: Pain or Fever Stop: 12/26/22 05:54 Last Admin: 11/30/22 01:16 Dose: 650 mg Amiodarone HCl (Amiodarone 200 Mg Tab) 200 mg PO BIDM [facility] Stop: 12/26/22 07:59 Last Admin: 11/30/22 08:13 Dose: 200 mg Amlodipine Besylate (Amlodipine Besylate 5 Mg Tab) 10 mg PO QAM [facility] Stop: 12/30/22 08:59 Last Admin: 11/30/22 09:37 Dose: 10 mg Calcium Acetate (Calcium Acetate 667 Mg Cap/Tab) 667 mg PO TIDM MITCH Stop: 12/26/22 16:59 Last Admin: 11/30/22 08:12 Dose: 667 mg Clopidogrel Bisulfate (Clopidogrel Bisulfate 75 Mg Tab) 75 mg PO QAM MITCH Stop: 12/26/22 08:59 Last Admin: 11/30/22 08:12 Dose: 75 mg Finasteride (Finasteride 5 Mg Tab) 5 mg PO DAILY [facility] Stop: 12/26/22 08:59 Last Admin: 11/30/22 08:12 Dose: 5 mg Fluconazole (Fluconazole 100 Mg Tab) 400 mg PO Q24H MITCH Stop: 12/07/22 17:29 Last Admin: 11/29/22 17:05 Dose: 400 mg Heparin Sodium (Porcine) (Heparin Sod 5,000 Unit/0.5 Ml Vial) 5,000 units SQ Q12 MITCH Stop: 12/28/22 20:59 Last Admin: 11/30/22 08:12 Dose: 5,000 units Parenteral Electrolytes (Plasma-Lyte A Ph 7.4) 1,000 mls @ 80 mls/hr IV .[id number] [facility] Stop: 12/27/22 08:59 Last Admin: 11/30/22 03:25 Dose: 80 mls/hr Ondansetron HCl (Ondansetron Inj 2 Mg/Ml 2 Ml Vial) 4 mg IV Q6H PRN PRN Reason: Nausea And Vomiting Stop: 12/29/22 14:35 Oxybutynin Chloride (Oxybutynin Chloride 5 Mg Tab) 5 mg PO Q8H PRN PRN Reason: bladder spasms Stop: 12/26/22 05:54 Last Admin: 11/29/22 08:20 Dose: 5 mg
--- NOTE | 2022-11-30 10:34 | Nephrology Progress Note ---
Date of Service November 30, 2022 Assessment & Plan (1) KENDRICK (acute kidney injury): Plan: Attributed to dehydration and obstruction. Creatinine improving with supportive care. Volume status acceptable. Continue IVF to encourage urine output. POD# 1 s/p ureteral stent exchange. Noted stricture at bladder neck reported as well as BL obstruction of stents with debris and stricture of the ureters. BL ureteral dilation with stent exchange and evacuation of debris performed by Dr. Krishnamurthy yesterday. Kennedy in place. Electrolytes acceptable. Continue IVF to encourage slightly positive fluid balance. Document I/O's. Repeat metabolic profile tomorrow AM. Medications appropriate for kidney function. Discontinue metformin. Continue to hold lisinopril and chlorthalidone. (2) PAF (paroxysmal atrial fibrillation): Plan: Remains on amiodarone and Eliquis appropriately dosed for kidney function. Tolerating therapy well. (3) Hypertension: Plan: Amlodipine restarted this AM. As urine clears, consider stopping IVF. (4) S/P ureteral stent placement: Plan: POD#1 s/p stent exchange and removal of debris. Remains on flucinazole for Tati in urine. Kennedy in place. Admission and Anticipated Discharge Date Admission Date: November 26, 2022 Subjective No acute events overnight. No complaints this AM. No fevers or chills. Neo denies pain. Kennedy draining slightly lali urine with sediment. Appetite is good. No fluid retention or edema. Review of Systems Review of Systems: All systems reviewed & are unremarkable except as noted in HPI & below Physical Exam Constitutional: well developed, + thin and + frail appearing; no acute distress Eyes: no scleral abnormality and no corneal abnormality ENMT: Mouth: no oral mucosal abnormality and oral mucous membranes not dry Neck: normal visual inspection and trachea midline Respiratory: normal respiratory effort Auscultation: lungs clear to auscultation bilaterally Cardiovascular: Rate/Rhythm: regular rate and + irregularly irregular Heart Sounds: normal S1 and normal S2 Extremities: no edema Musculoskeletal: Extremities: no cyanosis and no clubbing Skin: normal turgor; no jaundice Neurologic: Motor/Sensory: no tremor and no asterixis Psychiatric: Orientation: alert and oriented x 3 Genitourinary: Kennedy draining slightly lali urine with sediment Results & Data Vital Signs (Past 12 Hours) Vital Signs Temp Pulse Pulse Resp BP BP Pulse Ox 11/30/22 08:00 75 11/30/22 07:27 37.1 C 77 16 152/65 H 94 11/30/22 03:14 79 18 129/64 96 11/29/22 23:42 37.3 C 90 18 150/75 H 96 O2 Del Method 11/30/22 08:00 11/30/22 07:27 Room Air 11/30/22 03:14 Room Air 11/29/22 23:42 Room Air Laboratory Results Laboratory Results - last 24 hr 11/30/22 11/30/22 06:03 06:03 WBC 8.44 RBC 3.80 L Hgb 10.3 L Hct 31.7 L MCV 83.4 MCH 27.1 MCHC 32.5 RDW Std Deviation 52.7 H RDW Coeff of Elsi 17.5 H Plt Count 142 MPV 10.8 Sodium 137 Potassium 4.2 Chloride 101 Carbon Dioxide 28 Anion Gap 8 BUN 59 H Creatinine 3.74 H D Est Cr Clr Drug Dosing 17.6 Est GFR ( Amer) 17.2 Est GFR (Non-Af Amer) 14.9 BUN/Creatinine Ratio 15.8 Glucose 115 H Calcium 8.3 L Phosphorus 3.5 Total Bilirubin 0.2 Direct Bilirubin 0.0 AST 9 L ALT < 3 L Alkaline Phosphatase 64 Total Protein 5.8 L Albumin 2.6 L PG Care Time/CCT Total # of Minutes Spent Total Time Spent with Patient: Total time spent is greater than 50% in coordination of care (as documented) at patient's floor/unit and/or counseling patient: Coding Level of Care Code 47833 SUB INP/OBS CARE 3/50MIN Diagnoses KENDRICK (acute kidney injury) N17.9 PAF (paroxysmal atrial fibrillation) I48.0 Hypertension I10 S/P ureteral stent placement Z96.0
--- NOTE | 2022-11-30 15:45 | Electrocardiogram Report ---
Test Reason : Blood Pressure : / mmHG Vent. Rate : 088 BPM Atrial Rate : 088 BPM P-R Int : 134 ms QRS Dur : 090 ms QT Int : 340 ms P-R-T Axes : 060 079 -12 degrees QTc Int : 411 ms Normal sinus rhythm Low voltage QRS Diffuse Nonspecific T wave abnormality Abnormal ECG When compared with ECG of 28-NOV-2022 05:37, Nonspecific T wave abnormality now present Confirmed by Kevin Kern ([id number]) on 11/30/2022 3:44:49 PM Referred By: REFERRED SELF Confirmed By:Kevin Kern
[2022-11-30] MEDS: FLUCONAZOLE 100 MG TAB PO SCH (16:16)
[2022-11-30] MEDS: APIXABAN 2.5 MG TAB PO SCH (20:03)
[2022-12-01] MEDS: PLASMA-LYTE A 1,000 ML IV SCH (04:48)
[2022-12-01] MEDS: CLOPIDOGREL BISULFATE 75 MG TAB PO SCH (07:59)
[2022-12-01] MEDS: APIXABAN 2.5 MG TAB PO SCH ×2 (07:59→20:48)
[2022-12-01] MEDS: ATORVASTATIN 40 MG TAB PO SCH (07:59)
[2022-12-01] MEDS: FINASTERIDE 5 MG TAB PO SCH (07:59)
[2022-12-01] MEDS: CALCIUM ACETATE 667 MG CAP/TAB PO SCH ×3 (08:00→17:06)
[2022-12-01] MEDS: amLODIPine BESYLATE 5 MG TAB PO SCH (08:00)
[2022-12-01] MEDS: AMIODARONE 200 MG TAB PO SCH ×2 (08:01→17:06)
[2022-12-01 08:38] LABS: Hematocrit (blood only) 29.3 % (42.0-52.0); Hemoglobin 9.4 g/dl (14.0-18.0); Mean Corpuscular Hemoglobin 27.2 pg (25.0-34.0); Mean Corpuscular Hgb Conc 32.1 g/dL (32.0-36.0); Mean Corpuscular Volume 84.7 fL (80.0-100.0); Mean Platelet Volume 10.9 fL (9.4-12.4); Platelet Count 147 K/uL (130-400); RDW Coefficient of Variation 17.2 % (11.5-14.5); RDW Standard Deviation 53.6 fL (36.4-46.3); Red Blood Count 3.46 M/uL (4.70-6.10); White Blood Count 6.38 K/ul (4.8-10.8)
--- NOTE | 2022-12-01 08:44 | Nephrology Progress Note ---
Date of Service December 01, 2022 Assessment & Plan (1) KENDRICK (acute kidney injury): Plan: * KENDRICK due to dehydration and stent obstruction (debris or stricture) * Underwent ureteral dilation and bilateral stent change 11/29/22 * UO 3.4 L yesterday. Patient remains 6 L volume + * Stop IVF, encourage oral hydration * Monitor PRP * Continue to hold Lisinopril, Chlorthalidone, Metformin (2) PAF (paroxysmal atrial fibrillation): Plan: * On amiodarone and Eliquis (3) Hypertension: Plan: * BP is acceptable on Amlodipine therapy (4) S/P ureteral stent placement: Plan: * Underwent ureteral dilation and bilateral stent change 11/29/22 * 11/29/22 Urine Cx - prelim NGTD Plan Note: Will consult Case Management to assist patient in obtaining his bills, stamps and check book from home Admission and Anticipated Discharge Date Admission Date: November 26, 2022 Subjective Mr. Benavidez was evaluated in his hospital room this morning. He denies back pain or dysuria. He expresses concern that he has bills that are due. He would like assistance to obtain his check book, bills and stamps from home. Review of Systems Constitutional: no fever Eyes: no problem reported Ear, Nose, Mouth, Throat: no problem reported Respiratory: no cough and no dyspnea Cardiovascular: no chest pain Gastrointestinal: no abdominal pain Physical Exam Constitutional: not in distress Eyes: PERRL, conjunctivae normal, anicteric sclerae ENMT: external ear and nose normal, oropharynx normal Neck: trachea midline, no thyromegaly Respiratory: normal respiratory effort, lungs clear to auscultation Cardiovascular: RRR, no murmur, no edema Gastrointestinal (Abdomen): normal bowel sounds, soft, nontender, no hepatosplenomegaly Genitourinary: Kennedy catheter in place draining clear yellow urine Results & Data Vital Signs (Past 12 Hours) Vital Signs Temp Pulse Pulse Resp BP Pulse Ox O2 Del Method 12/01/22 07:48 36.9 C 57 L 15 137/67 96 Room Air 12/01/22 03:02 36.5 C 56 L 18 131/53 L 94 Room Air 11/30/22 23:09 61 11/30/22 22:57 36.9 C 60 18 111/57 L 97 Room Air 11/30/22 20:44 Room Air Laboratory Results Laboratory Tests 09/14/22 11/26/22 11/27/22 10:02 00:09 15:35 WBC Hgb Hct Plt Count Sodium Potassium Chloride Carbon Dioxide BUN Creatinine 1.20 12.75 H* 7.49 H* D 11/30/22 12/01/22 06:03 07:59 WBC 6.38 Hgb 9.4 L Hct 29.3 L Plt Count 147 Sodium 137 Potassium 4.2 Chloride 101 Carbon Dioxide 28 BUN 59 H Creatinine 3.74 H D Laboratory Tests 12/01/22 07:59 Sodium 138 Potassium 3.7 Chloride 102 Carbon Dioxide 31 BUN 39 H D Creatinine 2.71 H D Glucose 89 Diagnostic Findings 11/29/22 urine culture - NGTD Coding Level of Care Code 28134 SUB INP/OBS CARE 3/50MIN Diagnoses KENDRICK (acute kidney injury) N17.9 PAF (paroxysmal atrial fibrillation) I48.0 Hypertension I10 S/P ureteral stent placement Z96.0
[2022-12-01] MEDS ORDERED: ALBUTEROL HFA 8 GM INHALER INH PRN (09:52)
[2022-12-01 09:53] LABS: Albumin Level 2.5 gm/dl (3.4-5.0); BUN Creatinine Ratio 14.4 (10-20); Calcium 8.1 mg/dl (8.6-10.3); Creatinine Clr Calc Pharmacy 23.3 ml/min; Est GFR (African American) 25.5 ml/min; Phosphorus 2.6 mg/dl (2.5-4.9); Potassium 3.7 mmol/L (3.5-5.1)
--- NOTE | 2022-12-01 11:13 | Hospitalist Progress Note ---
Date of Service December 01, 2022 Assessment & Plan (1) KENDRICK (acute kidney injury): Plan: Creatinine 12.75->2.71 with IV fluids, Nephrology consult appreciated, no need for emergent dialysis. Can stop IVF today in favor of oral intake. Received Phoslo and sodium bicarb earlier in admission, since stopped. Urology consulted, s/p stent exchange 11/[address] Krishnamurthy with noted catalina purulence within the kidneys bilaterally, cultures NGTD. Urine culture on admission with Yeast (non Tati), treating with fluconazole 200mg daily for total of 14 days (can adjust to 400mg daily if renal function improves). WBC count normal. Patient may need percutaneous nephrostomy tubes in the future if he fails retrograde management. Maintain Kennedy catheter on discharge for maximum drainage and healing, with outpatient Urology follow up. Infectious Disease, Nephrology, and Urology consults appreciated this admission. (2) Hyperkalemia, diminished renal excretion: Plan: K 5.9 on admission in setting of severe, acute renal dysfunction, resolved with IVF (3) Left flank mass: Plan: Noted on nursing exam 11/27, patient did not know it was there US suggests lipomatous mass, follow up with PCP (4) Hypertension: Plan: Borderline hypotension at times, holding the following: Chlorthalidone Metoprolol Lisinopril Resumed amlodipine 11/30, add others as able (metoprolol first if adding medications given KENDRICK) (5) PAF (paroxysmal atrial fibrillation): Plan: Rhythm controlled, bradycardic at times Continue amiodarone HR range 50s-80s, holding off on metoprolol for now given HR well controlled off of it at this time Eliquis resumed at 2.5mg BID dosing, dose discussed with pharmacy (nearly meets criteria for this lower dose, and also on fluconazole which increases Eliquis exposure) (6) Diabetes mellitus, type 2: Plan: Chronic Holding Metformin, BSGs are within acceptable range for age on dietary modification (7) Dyslipidemia: Plan: Chronic Continue Atorvastatin (8) UTI (urinary tract infection): Plan: Treating as above, with fluconazole, no other isolates but cultures pending (9) Physical deconditioning: Plan: PT and OT recommending rehab on discharge, accepted to [facility] when medically cleared Plan Anticipate need for rehab on discharge; was recommended on last admission but patient declined at that time. Admits that he declined further at home and desirous of rehab placement on discharge this time. Approaching dischargeability in the next 24-48 hours if symptoms continue to improve, and if creatinine continues to improve. Case Management aware. Admission and Anticipated Discharge Date Admission Date: November 26, 2022 Subjective No overnight events. Not feeling nauseated, no abdominal pain, no chest pain, no SOB. Review of Systems Review of Systems: All systems reviewed & are unremarkable except as noted in Subjective Physical Exam Constitutional: WD/WN, vitals as above Respiratory: normal respiratory effort, lungs clear to auscultation Cardiovascular: HR irregularly irregular, non-tachycardic, no murmurs, no peripheral edema Gastrointestinal (Abdomen): normal bowel sounds, soft, nontender, no hepatosplenomegaly Skin: no rashes, warm and dry Psychiatric: A+Ox3, euthymic affect Genitourinary: Kennedy cath with clear yellow urine Results & Data Results & Data Vital Signs (Past 12 Hours) Vital Signs Temp Pulse Resp BP Pulse Ox O2 Del Method 12/01/22 08:00 Room Air 12/01/22 07:48 36.9 C 57 L 15 137/67 96 Room Air 12/01/22 03:02 36.5 C 56 L 18 131/53 L 94 Room Air PG Care Time/CCT Total # of Minutes Spent Total Time Spent with Patient: Total time spent is greater than 50% in coordination of care (as documented) at patient's floor/unit and/or counseling patient: Coding Level of Care Code 22078 SUB INP/OBS CARE 3/50MIN Diagnoses KENDRICK (acute kidney injury) N17.9 Hyperkalemia, diminished renal excretion E87.5 Left flank mass R19.00 Hypertension I10 PAF (paroxysmal atrial fibrillation) I48.0 Diabetes mellitus, type 2 E11.9 Dyslipidemia E78.5 UTI (urinary tract infection) N39.0 Physical deconditioning R53.81
[2022-12-01] MEDS: FLUCONAZOLE 100 MG TAB PO SCH (17:07)
[2022-12-02 06:39] LABS: Hematocrit (blood only) 25.9 % (42.0-52.0); Hemoglobin 8.5 g/dl (14.0-18.0); Mean Corpuscular Hemoglobin 27.3 pg (25.0-34.0); Mean Corpuscular Hgb Conc 32.8 g/dL (32.0-36.0); Mean Corpuscular Volume 83.3 fL (80.0-100.0); Mean Platelet Volume 10.5 fL (9.4-12.4); Platelet Count 129 K/uL (130-400); RDW Coefficient of Variation 16.6 % (11.5-14.5); RDW Standard Deviation 50.7 fL (36.4-46.3); Red Blood Count 3.11 M/uL (4.70-6.10); White Blood Count 5.38 K/ul (4.8-10.8)
[2022-12-02 06:51] LABS: BUN Creatinine Ratio 14.4 (10-20); Calcium 7.6 mg/dl (8.6-10.3); Creatinine Clr Calc Pharmacy 30.5 ml/min; Est GFR (African American) 34.8 ml/min; Est GFR (Non-African American) 30.1 ml/min; Potassium 3.6 mmol/L (3.5-5.1)
[2022-12-02] MEDS: AMIODARONE 200 MG TAB PO SCH ×2 (08:06→16:39)
[2022-12-02] MEDS: CLOPIDOGREL BISULFATE 75 MG TAB PO SCH (08:06)
[2022-12-02] MEDS: APIXABAN 2.5 MG TAB PO SCH ×2 (08:06→20:18)
[2022-12-02] MEDS: CALCIUM ACETATE 667 MG CAP/TAB PO SCH ×3 (08:06→16:39)
[2022-12-02] MEDS: ATORVASTATIN 40 MG TAB PO SCH (08:06)
[2022-12-02] MEDS: FINASTERIDE 5 MG TAB PO SCH (08:06)
[2022-12-02] MEDS: amLODIPine BESYLATE 5 MG TAB PO SCH (08:07)
--- NOTE | 2022-12-02 08:43 | Hospitalist Progress Note ---
Date of Service December 02, 2022 Assessment & Plan (1) KENDRICK (acute kidney injury): Plan: Creatinine 12.75->2.09 with IV fluids, Nephrology consult appreciated, no need for emergent dialysis. Continue to encourage oral intake. Urology consulted, s/p stent exchange 11/[address] Krishnamurthy with noted catalina purulence within the kidneys bilaterally, Cx growing Citrobacter and Yeast not Tati. Treating with fluconazole 200mg daily for total of 14 days (can adjust to 400mg daily if CrCl >50, end date 12/13), as well as Bactrim BID x7 days (for Citrobacter, end date 12/08). WBC count normal. Maintain Kennedy catheter on discharge for maximum drainage and healing, with outpatient Urology follow up. Hgb 8.5, slow trickle downward over last few days since catheter exchange but no blood in Kennedy bag, continue to monitor. Infectious Disease, Nephrology, and Urology consults appr eciated this admission. (2) Hyperkalemia, diminished renal excretion: Plan: K 5.9 on admission in setting of severe, acute renal dysfunction, resolved with IVF. (3) Left flank mass: Plan: Noted on nursing exam 11/27, patient did not know it was there. US suggests lipomatous mass. Not bothering patient so would not recommend intervention at this time. (4) Hypertension: Plan: Borderline hypotension at times, holding chlorthalidone, metoprolol, lisinopril Resumed amlodipine 11/30, add back medications when/if able (avoid diuretic/ARIEL given resolving severe KENDRICK) (5) PAF (paroxysmal atrial fibrillation): Plan: Rhythm controlled, bradycardic at times. Continue amiodarone. HR range 50s-80s, holding off on metoprolol for now given HR well controlled off of it at this time. Eliquis resumed at 2.5mg BID dosing for now, could resume 5mg BID home dosing on discharge given improvement in renal function. (6) Diabetes mellitus, type 2: Plan: Chronic. Holding Metformin, BSGs are within acceptable range for age on dietary modification, BSG qAM. (7) Dyslipidemia: Plan: Chronic, continue Atorvastatin. (8) UTI (urinary tract infection): Plan: Treating as above, with fluconazole and Bactrim. (9) Physical deconditioning: Plan: PT and OT recommending rehab on discharge, accepted to [facility] when medically cleared, anticipate discharge tomorrow if creatinine <2, discussed with Urology/Nephrology Plan PT and OT recommending rehab on discharge, accepted to [facility] when medically cleared, anticipate discharge tomorrow if creatinine <2, discussed with Urology/Nephrology Admission and Anticipated Discharge Date Admission Date: November 26, 2022 Subjective No complaints today, no abdominal pain, chest pain, SOB. Review of Systems Review of Systems: All systems reviewed & are unremarkable except as noted in Subjective Physical Exam Constitutional: WD/WN, vitals as above Respiratory: normal respiratory effort, lungs clear to auscultation Cardiovascular: HR irregularly irregular, non-tachycardic, no murmurs, no peripheral edema Gastrointestinal (Abdomen): normal bowel sounds, soft, nontender, no hepatosplenomegaly Skin: no rashes, warm and dry Psychiatric: A+Ox3, euthymic affect Genitourinary: Kennedy cath with clear yellow urine Results & Data Results & Data Vital Signs (Past 12 Hours) Vital Signs Temp Pulse Pulse Resp BP BP Pulse Ox 12/02/22 08:00 12/02/22 05:58 62 12/02/22 07:45 36.8 C 61 20 133/65 133/65 96 12/02/22 02:26 36.7 C 61 18 120/60 94 12/01/22 23:35 61 12/01/22 23:35 12/01/22 22:44 36.9 C 62 18 128/63 95 O2 Del Method 12/02/22 08:00 Room Air 12/02/22 05:58 12/02/22 07:45 Room Air 12/02/22 02:26 Room Air 12/01/22 23:35 12/01/22 23:35 Room Air 12/01/22 22:44 Room Air PG Care Time/CCT Total # of Minutes Spent Total Time Spent with Patient: Total time spent is greater than 50% in coordination of care (as documented) at patient's floor/unit and/or counseling patient: Coding Level of Care Code 95878 SUB INP/OBS CARE 3/50MIN Diagnoses KENDRICK (acute kidney injury) N17.9 Hyperkalemia, diminished renal excretion E87.5 Left flank mass R19.00 Hypertension I10 PAF (paroxysmal atrial fibrillation) I48.0 Diabetes mellitus, type 2 E11.9 Dyslipidemia E78.5 UTI (urinary tract infection) N39.0 Physical deconditioning R53.81
--- NOTE | 2022-12-02 08:54 | Nephrology Progress Note ---
Date of Service December 02, 2022 Assessment & Plan (1) KENDRICK (acute kidney injury): Plan: * KENDRICK due to dehydration and stent obstruction (debris or stricture) * Underwent ureteral dilation and bilateral stent change 11/29/22 * UO 3.2 L yesterday. Patient remains 6 L volume + * IVF have been stopped. Continue to encourage oral hydration * Continue to hold Lisinopril, Chlorthalidone, Metformin * Monitor PRP. Consider transfer to rehab once Cr 2.0 or less * Follow up w/ PCP and Urology post hospitalization (2) PAF (paroxysmal atrial fibrillation): Plan: * On amiodarone and Eliquis (3) Hypertension: Plan: * BP is acceptable on Amlodipine therapy (4) S/P ureteral stent placement: Plan: * Underwent ureteral dilation and bilateral stent change 11/29/22 * 11/29/22 Urine Cx - prelim NGTD Admission and Anticipated Discharge Date Admission Date: November 26, 2022 Subjective Mr. Benavidez was evaluated in his hospital room this morning. He denies back pain or dysuria. He expresses a desire to meet with case management to discuss placement following discharge from hospital Review of Systems Constitutional: no fever Eyes: no problem reported Ear, Nose, Mouth, Throat: no problem reported Respiratory: no cough and no dyspnea Cardiovascular: no chest pain Gastrointestinal: no abdominal pain Genitourinary: no hematuria Physical Exam Constitutional: not in distress Eyes: PERRL, conjunctivae normal, anicteric sclerae ENMT: external ear and nose normal, oropharynx normal Neck: trachea midline, no thyromegaly Respiratory: normal respiratory effort, lungs clear to auscultation Cardiovascular: RRR, no murmur, no edema Gastrointestinal (Abdomen): normal bowel sounds, soft, nontender, no hepatosplenomegaly Genitourinary: Kennedy catheter in place draining clear yellow urine Results & Data Vital Signs (Past 12 Hours) Vital Signs Temp Pulse Pulse Resp BP BP Pulse Ox 12/02/22 08:00 12/02/22 05:58 62 12/02/22 07:45 36.8 C 61 20 133/65 133/65 96 12/02/22 02:26 36.7 C 61 18 120/60 94 12/01/22 23:35 61 12/01/22 23:35 12/01/22 22:44 36.9 C 62 18 128/63 95 O2 Del Method 12/02/22 08:00 Room Air 12/02/22 05:58 12/02/22 07:45 Room Air 12/02/22 02:26 Room Air 12/01/22 23:35 12/01/22 23:35 Room Air 12/01/22 22:44 Room Air Laboratory Results Laboratory Tests 12/02/22 12/02/22 06:10 06:10 WBC 5.38 Hgb 8.5 L Hct 25.9 L Plt Count 129 L Sodium 134 L Potassium 3.6 Chloride 102 Carbon Dioxide 28 BUN 30 H Creatinine 2.09 H D Glucose 99 Calcium 7.6 L PG Care Time/CCT Total # of Minutes Spent Total Time Spent with Patient: Total time spent is greater than 50% in coordination of care (as documented) at patient's floor/unit and/or counseling patient: Coding Level of Care Code 32940 SUB INP/OBS CARE 3/50MIN Diagnoses KENDRICK (acute kidney injury) N17.9 PAF (paroxysmal atrial fibrillation) I48.0 Hypertension I10 S/P ureteral stent placement Z96.0
[2022-12-02] MEDS: FLUCONAZOLE 100 MG TAB PO SCH (16:39)
[2022-12-02] MEDS ORDERED: POLYETHYLENE (MIRALAX) 17 GM PACK PO PRN (18:54)
[2022-12-02] MEDS: SULFAMETHOXAZOLE/TRIMETHOPRIM DS 800/160MG TAB PO SCH (20:18)
[2022-12-03 06:18] LABS: Hematocrit (blood only) 30.2 % (42.0-52.0); Hemoglobin 9.8 g/dl (14.0-18.0)
[2022-12-03 06:30] LABS: BUN Creatinine Ratio 12.8 (10-20); Calcium 7.8 mg/dl (8.6-10.3); Creatinine Clr Calc Pharmacy 31.5 ml/min; Est GFR (African American) 37.9 ml/min; Est GFR (Non-African American) 32.7 ml/min; Potassium 3.9 mmol/L (3.5-5.1)
[2022-12-03] MEDS: APIXABAN 2.5 MG TAB PO SCH (08:01)
[2022-12-03] MEDS: ATORVASTATIN 40 MG TAB PO SCH (08:01)
[2022-12-03] MEDS: SULFAMETHOXAZOLE/TRIMETHOPRIM DS 800/160MG TAB PO SCH (08:01)
[2022-12-03] MEDS: CLOPIDOGREL BISULFATE 75 MG TAB PO SCH (08:01)
[2022-12-03] MEDS: AMIODARONE 200 MG TAB PO SCH (08:01)
[2022-12-03] MEDS: amLODIPine BESYLATE 5 MG TAB PO SCH (08:02)
[2022-12-03] MEDS: CALCIUM ACETATE 667 MG CAP/TAB PO SCH ×2 (08:02→11:39)
[2022-12-03] MEDS: FINASTERIDE 5 MG TAB PO SCH (08:02)
--- NOTE | 2022-12-03 08:28 | Electrocardiogram Report ---
Test Reason : Blood Pressure : / mmHG Vent. Rate : 073 BPM Atrial Rate : 073 BPM P-R Int : 144 ms QRS Dur : 092 ms QT Int : 448 ms P-R-T Axes : 068 041 068 degrees QTc Int : 493 ms Normal sinus rhythm Diffuse Minor Nonspecific T wave abnormality Abnormal ECG When compared with ECG of 30-NOV-2022 12:47, No significant change Confirmed by Kevin Kern ([id number] on 12/03/2022 8:27:48 AM Referred By: REFERRED SELF Confirmed By:Kevin Kern
--- NOTE | 2022-12-03 08:43 | Nephrology Progress Note ---
Date of Service December 03, 2022 Assessment & Plan (1) KENDRICK (acute kidney injury): Plan: * KENDRICK due to dehydration and stent obstruction (debris or stricture) * Underwent ureteral dilation and bilateral stent change 11/29/22 * UO 2.6 L yesterday. Cr improved to 1.95 this am (baseline 1.2) * Continue to encourage oral hydration * BP is acceptable. Continue to hold Lisinopril, Chlorthalidone, Metformin * Monitor PRP. Consider transfer to rehab once Cr 2.0 or less * Follow up w/ PCP and Urology post hospitalization (2) PAF (paroxysmal atrial fibrillation): Plan: * On amiodarone and Eliquis (3) Hypertension: Plan: * BP is acceptable on Amlodipine therapy (4) S/P ureteral stent placement: Plan: * Underwent ureteral dilation and bilateral stent change 11/29/22 * 11/29/22 Urine Cx - prelim NGTD Admission and Anticipated Discharge Date Admission Date: November 26, 2022 Subjective Mr. Benavidez was evaluated in his hospital room this morning. He denies back pain or dysuria. He is anxious to transfer to [facility] for physical therapy Review of Systems Constitutional: no fever Eyes: no problem reported Ear, Nose, Mouth, Throat: no problem reported Respiratory: no cough and no dyspnea Cardiovascular: no chest pain Gastrointestinal: no abdominal pain Genitourinary: no hematuria Physical Exam Constitutional: not in distress Eyes: PERRL, conjunctivae normal, anicteric sclerae ENMT: external ear and nose normal, oropharynx normal Neck: trachea midline, no thyromegaly Respiratory: normal respiratory effort, lungs clear to auscultation Cardiovascular: RRR, no murmur, no edema Gastrointestinal (Abdomen): normal bowel sounds, soft, nontender, no hepatosplenomegaly Results & Data Vital Signs (Past 12 Hours) Vital Signs Temp Pulse Pulse Resp BP Pulse Ox O2 Del Method 12/03/22 07:00 36.7 C 59 L 18 134/65 98 Room Air 12/03/22 07:34 Room Air 12/03/22 06:00 61 12/03/22 05:00 12/03/22 02:58 36.7 C 60 18 132/55 L 95 Room Air 12/02/22 23:06 36.6 C 61 18 130/62 98 Room Air 12/02/22 23:06 63 12/02/22 22:07 Room Air O2 Del Method 12/03/22 07:00 12/03/22 07:34 12/03/22 06:00 12/03/22 05:00 Room Air 12/03/22 02:58 12/02/22 23:06 12/02/22 23:06 12/02/22 22:07 Laboratory Results Laboratory Tests 12/03/22 12/03/22 05:11 05:11 Hgb 9.8 L Hct 30.2 L Sodium 135 L Potassium 3.9 Chloride 104 Carbon Dioxide 28 BUN 25 H Creatinine 1.95 H Glucose 87 PG Care Time/CCT Total # of Minutes Spent Total Time Spent with Patient: Total time spent is greater than 50% in coordination of care (as documented) at patient's floor/unit and/or counseling patient: Coding Level of Care Code 67447 SUB INP/OBS CARE 3/50MIN Diagnoses KENDRICK (acute kidney injury) N17.9 PAF (paroxysmal atrial fibrillation) I48.0 Hypertension I10 S/P ureteral stent placement Z96.0
--- NOTE | 2022-12-03 08:51 | Infectious Disease Progress Nt ---
Date of Service December 03, 2022 Assessment & Plan (1) Acute renal failure: (2) UTI (urinary tract infection): (3) S/P ureteral stent placement: (4) Hydronephrosis: Plan Micro: 11/29 UCx kidney: >100k yeast not aguilar alb/dub 11/29 UCx kidney: 1K Citrobacter freundii (srinivasan-S), >100k yeast not Aguilar alb/dub 11/26 UCx: Yeast not Aguilar albicans/dub 10/30 UCx: Aguilar glabrata (S caspo, SDD fluc RUPERTO 16) Abx: Fluconazole 400 mg 11/27 - 11/29; 200 mg 11/30 - present TMP/SMX 12/02 - Cefazolin (jose-op) 11/29 Problems: #Bilateral hydronephrosis despite bilateral ureteral stents: s/p stent exchange 11/29 #UCx with Aguilar glabrata, Citrobacter freundii #KENDRICK 77 yo M with history of bladder cancer s/p TURBT x 2 and bilateral ureteral stents (last exchanged 09/24/22), CAD s/p stents, paroxysmal afib, HTN, DM2, ORIF L femur who presented on 11/26 with failure to thrive at home, found to have KENDRICK, persistent bilateral hydronephrosis despite ureteral stents. He was recently admitted from 10/30-11/07 with KENDRICK, and CT A/P showing persistent bilateral hydronephrosis. A UCx at that time grew Aguilar glabrata, and he was treated with caspofungin --> fluconazole, and discharged with fluconazole 200 mg daily x 7 days. It was recommended that he discharge to rehab, however the pt opted to return home alone. Unclear whether the pt took the fluconazole on discharge. Pt has not been doing well at home, was not eating, having difficulty drinking, having progressive generalized weakness. He denied fevers, chills, and reported he was urinating as usual. On presentation, afebrile, hypotensive to 80s- 90s/50s, WBC 16, Cr 12.75 (1.93 on discharge). UA >30 WBCs. CXR without acute findings. CT A/P wo contrast showed bilateral double-J ureteral stents in standard position, moderate bilateral hydronephrosis, bladder wall thickening measuring up to 10 mm, similar to previous which may represent chronic spasm, cystitis, less likely neoplasm. UCx again grew yeast, not Aguilar albicans/dubliniensis, as well as small amount of Citrobacter freundii. Pt was started on fluconazole 400 mg daily. Urology was consulted and took pt to OR on 11/29 for cystoscopy, bilateral ureteral dilation, aspiration, bilateral stent exchange, irrigation and evacuation of foreign body/debris, dilation of bladder neck. Per operative note, stents were coated in debris, and bladder had purulent appearing urine and debris requiring extensive irrigation. A large amount of purulent urine was draining from kidneys, sent for culture. Will treat the Aguilar glabrata that pt has grown in his urine culture, given the purulent urine seen in the OR, ureteral stents, and recent urologic procedures. The Aguilar glabrata was susceptible dose dependent on recent testing (10/30), with RUPERTO 16. However, a standard fluconazole dose is still adequate because urine fluconazole concentrations are substantially higher than blood levels (achieving urine levels >100 mcg/ml). Recommendations: -Agree with TMP/SMX 1 DS tab BID x 7 days (12/02-12/09) to cover Citrobacter freundii -Continue fluconazole 200 mg PO daily to treat Aguilar. If CrCl improves >50, can increase to 400 mg daily. Complete 14 day course through 12/10. -Check EKG every 2-3 days to monitor QTc on fluconazole and amiodarone. If QTc prolonged >500, would change fluconazole to caspofungin (70 mg on day 1, then 50 mg daily subsequently) Will sign off. Please page [facility] with further questions. Admission and Anticipated Discharge Date Admission Date: November 26, 2022 Subjective This patient recommendation is based on a telemedicine consult request which was completed asynchronously through chart review and information provided by the primary physician. The patient was not seen or examined today. The evaluation is consultative in nature and all patient care and treatment decisions can either be accepted or rejected by the patient's primary hospital-based treating physician using their own independent medical judgment for their patient. Time Spent Reviewing Chart: 11 - 20 minutes pt not seen Review of System Pt was not seen Physical Exam Physical Exam: pt not seen Results & Data Vital Signs (Past 12 Hours) Vital Signs Temp Pulse Pulse Resp BP Pulse Ox O2 Del Method 12/03/22 07:00 36.7 C 59 L 18 134/65 98 Room Air 12/03/22 07:34 Room Air 12/03/22 06:00 61 12/03/22 05:00 12/03/22 02:58 36.7 C 60 18 132/55 L 95 Room Air 12/02/22 23:06 36.6 C 61 18 130/62 98 Room Air 12/02/22 23:06 63 12/02/22 22:07 Room Air O2 Del Method 12/03/22 07:00 12/03/22 07:34 12/03/22 06:00 12/03/22 05:00 Room Air 12/03/22 02:58 12/02/22 23:06 12/02/22 23:06 12/02/22 22:07 Laboratory Results Short CBC 12/03/22 Range/Units 05:11 Hgb 9.8 L (14.0-18.0) g/dl Hct 30.2 L (42.0-52.0) % BMP 12/03/22 05:11 Sodium 135 L Potassium 3.9 Chloride 104 Carbon Dioxide 28 BUN 25 H Creatinine 1.95 H Glucose 87 Calcium 7.8 L Medications Administered Current Inpatient Medications Acetaminophen (Acetaminophen 325 Mg Tab) 650 mg PO Q4H PRN PRN Reason: Pain or Fever Stop: 12/26/22 05:54 Last Admin: 11/30/22 16:15 Dose: 650 mg Albuterol (Albuterol Hfa 8 Gm Inhaler) 2 puffs INH Q6H PRN PRN Reason: SOB/wheezing Stop: 12/31/22 09:59 Amiodarone HCl (Amiodarone 200 Mg Tab) 200 mg PO BIDM [facility] Stop: 12/26/22 07:59 Last Admin: 12/03/22 08:01 Dose: 200 mg Amlodipine Besylate (Amlodipine Besylate 5 Mg Tab) 10 mg PO QAM [facility] Stop: 12/30/22 08:59 Last Admin: 12/03/22 08:02 Dose: 10 mg Apixaban (Apixaban 2.5 Mg Tab) 2.5 mg PO BID [facility] Stop: 12/30/22 20:59 Last Admin: 12/03/22 08:01 Dose: 2.5 mg Atorvastatin Calcium (Atorvastatin 40 Mg Tab) 80 mg PO QAM [facility] Stop: 12/31/22 08:59 Last Admin: 12/03/22 08:01 Dose: 80 mg Calcium Acetate (Calcium Acetate 667 Mg Cap/Tab) 667 mg PO TIDM [facility] Stop: 12/26/22 16:59 Last Admin: 12/03/22 08:02 Dose: 667 mg Clopidogrel Bisulfate (Clopidogrel Bisulfate 75 Mg Tab) 75 mg PO QAM [facility] Stop: 12/26/22 08:59 Last Admin: 12/03/22 08:01 Dose: 75 mg Finasteride (Finasteride 5 Mg Tab) 5 mg PO DAILY [facility] Stop: 12/26/22 08:59 Last Admin: 12/03/22 08:02 Dose: 5 mg Fluconazole (Fluconazole 100 Mg Tab) 200 mg PO Q24H [facility] Stop: 12/10/22 17:29 Last Admin: 12/02/22 16:39 Dose: 200 mg Ondansetron HCl (Ondansetron Inj 2 Mg/Ml 2 Ml Vial) 4 mg IV Q6H PRN PRN Reason: Nausea And Vomiting Stop: 12/29/22 14:35 Oxybutynin Chloride (Oxybutynin Chloride 5 Mg Tab) 5 mg PO Q8H PRN PRN Reason: bladder spasms Stop: 12/26/22 05:54 Last Admin: 11/29/22 08:20 Dose: 5 mg Polyethylene Glycol (Polyethylene (Miralax) 17 Gm Pack) 17 gm PO DAILY PRN PRN Reason: Constipation Stop: 01/01/23 18:53 Last Admin: 12/02/22 19:28 Dose: 17 gm Trimethoprim/Sulfamethoxazole (Sulfamethoxazole/Trimethoprim Ds 800/160mg Tab) 1 tab PO Q12 [facility] Stop: 12/12/22 20:59 Last Admin: 12/03/22 08:01 Dose: 1 tab
--- NOTE | 2022-12-03 10:51 | Electrocardiogram Report ---
Test Reason : Blood Pressure : / mmHG Vent. Rate : 072 BPM Atrial Rate : 072 BPM P-R Int : 144 ms QRS Dur : 096 ms QT Int : 392 ms P-R-T Axes : 068 041 045 degrees QTc Int : 429 ms Normal sinus rhythm Diffuse Minor Nonspecific T wave abnormality Abnormal ECG When compared with ECG of 02-DEC-2022 18:11, No significant change Confirmed by Kevin Kern ([id number]) on 12/03/2022 10:50:51 AM Referred By: REFERRED SELF Confirmed By:Kevin Kern
--- NOTE | 2022-12-03 12:19 | Discharge Summary ---
Date of Service December 03, 2022 Admission HPI Per Admitting Provider Neo Benavidez is a 77yo male with history of bladder cancer, CAD, s/p bilateral ureteral stent placement and hydronephrosis presenting with failure to thrive at home. Patient was recently admitted to [facility] 10/30/22 - 11/07/22 after presenting with poor appetite, decreased oral intake, generalized weakness and fatigue. Patient was found to be in KENDRICK at that time with Cr of 10.4. He had a CT abdomen/pelvis which revealed persistent bilateral hydronephrosis. Also with aguilar UTI s/p treatment with diflucan. Patient was recommended discharge to rehab. However, he opted to return home alone. Patient has not been doing well. He reports that he has not been eating. He has been trying to drink but it is difficult. He has progressive generalized weakness. He denies fever, chills, chest pain, cough, SOB, abdominal pain, nausea, vomiting, diarrhea or constipation. He reports that he is urinating per usual with no blood, foam or pain. No additional complaints at this time. In the ER patient is afebrile, hypotensive on arrival which improved with IVF. Stable respiratory status. Kennedy was ordered - patient was initially reluctant to have it placed. I discussed with him the importance of having one placed to monitor UOP etc. Patient initially agreeable. Nursing attempted to place Kennedy in the ER - stopped at patient's request due to discomfort. Blood pressure improved after IVF Principal Diagnosis Obstructive uropathy, acute kidney injury, Aguilar glabrata and Citrobacter UTI, bilateral hydronephrosis Discharge Exam General-alert and oriented x3, no fevers, no chills HEENT-head atraumatic and normocephalic, pupils equal and reactive to light, extraocular muscles intact Neck-no lymphadenopathy or thyromegaly, trachea midline Chest-clear to auscultation percussion. No rales wheezing or rhonchi Cardiac-regular rate and rhythm, normal S1 and S2 Abdomen-normal bowel sounds, nontender, no hepatosplenomegaly Extremities-no cyanosis, clubbing, or edema Neuro-cranial nerves II through XII intact, motor and sensory function within normal limits, strength symmetrical , no focal deficits Psych-normal affect, normal mood Discharge Data Allergies Allergy/AdvReac Type Severity Reaction Status Date / Time No Known Allergies Allergy Verified 10/30/22 08:23 Consultations 07/17/23 01:17 ED Decision to Admit Stat 11/26/22 02:24 Consult Nephrology Routine 11/27/22 08:42 Consult Urology Routine 11/30/22 08:07 Consult Infectious Diseases Routine Procedures Performed Operation Date: 11/29/22 09:00 Actual Procedures p Cystoscopy, Bilateral Ureteroscopy and Aspiration, Left Ureteral dialation(Bilateral) - Faheem Krishnamurthy DO s Bilateral Stent Exchange,(Bilateral) - Faheem Krishnamurtyh DO Ordered Studies 11/26/22 01:39 CT abd pelvis wo con Stat 11/27/22 13:24 US softtissue chstwall/uprback Routine 11/29/22 FL retrograde includes kub Routine Hospital Course (1) KENDRICK (acute kidney injury): Creatinine 12.75->1.9 with IV fluids. Nephrology consult appreciated. Continue to encourage oral intake. Urology consulted, s/p stent exchange 11/[address] Krishnamurthy with noted catalina purulence within the kidneys bilaterally. Cx growing Citrobacter and Aguilar glabrata. Treating with fluconazole 200mg daily for total of 14 days through 12/10. (can adjust to 400mg daily if CrCl >50, end date 12/13), as well as Bactrim BID x7 days (for Citrobacter, end date 12/08). WBC count normal. Maintain Kennedy catheter on discharge for maximum drainage and healing, with outpatient Urology follow up. Infectious Disease, Nephrology, and Urology consults appreciated this admission. (2) Hyperkalemia, diminished renal excretion: K 5.9 on admission in setting acute renal dysfunction. Resolved with IVF. (3) Left flank mass: Noted on nursing exam 11/27, patient did not know it was there. US suggests lipomatous mass. It is not bothering patient so would not recommend intervention at this time. (4) Hypertension: Stable chlorthalidone, metoprolol, lisinopril, amlodipine (5) PAF (paroxysmal atrial fibrillation): Rhythm controlled, bradycardic at times. Continue amiodarone. HR range 50s-80s, holding off on metoprolol for now given HR well controlled off of it at this time. Eliquis resumed at 2.5mg BID dosing with eventual return to 5mg BID (6) Diabetes mellitus, type 2: Chronic. Holding Metformin while hospitalized. Sliding scale insulin coverage. ADA diet (7) Dyslipidemia: Stable. Continue Atorvastatin. (8) UTI (urinary tract infection): Treating as above, with fluconazole and Bactrim. (9) Physical deconditioning: PT and OT recommending rehab on discharge, accepted to [facility]. Plan Discharge to [facility] today, December 03 Total Time Total Time Spent Total Time Spent (In Minutes): 45 minutes Discharge Plan Discharge Items Patient Disposition: Transfer Inpatient Rehab Fac Reason For Visit: KENDRICK Discharge Diagnosis: Obstructive uropathy, bilateral hydronephrosis, acute kidney injury, fungal and Citrobacter UTI Activity: Resume your previous activity Non-emergency contact: Primary Care Provider Call non-emergency contact if: you have any medication questions and your symptoms worsen Follow-up/Referrals: Delmi Umanzor MD [Primary Care Provider] - Diet: Carb Consistent or DM2 and Heart Healthy Addtl Attending Provider Instructions: Take fluconazole and Bactrim through December 10 BMP twice weekly on Tuesdays and Fridays Pending Studies at Discharge: No Stand-Alone Forms: My [facility] Skilled Items Patient informed of condition?: Yes DNR: Yes Discharge Level of Care: Acute rehab Communicable Disease: No Discharge Prognosis: Stable Lines: None Urinary Catheter: Yes Medications and DC Order Prescriptions: New polyethylene glycol 3350 [Miralax] 17 gram Powder In Packet 17 g PO DAILY PRN (Reason: constipation) Qty: 14 0RF calcium acetate(phosphat bind) 667 mg Capsule 667 mg PO TIDM Qty: 1 0RF sulfamethoxazole-trimethoprim [Bactrim DS] 800-160 mg Tablet 1 tab PO Q12 Qty: 0 0RF fluconazole [Diflucan] 100 mg Tablet 200 mg PO Q24H Qty: 0 0RF albuterol sulfate [Ventolin HFA] 90 mcg/actuation Hfa Aerosol Inhaler 2 puff inhalation Q6H PRNQty: 0 0RF Continued metformin 500 mg tablet extended release 24 hr 500 mg PO BID Qty: 180 3RF Rx Instructions: PER PT "SINCE DIET IS MUCH BETTER, DO NOT ALWAYS TAKE SECOND DOSE OF METFORMIN". metoprolol succinate 200 mg tablet extended release 24 hr 200 mg PO BID Qty: 180 3RF atorvastatin 80 mg tablet 80 mg PO QAM Qty: 90 3RF finasteride 5 mg tablet 5 mg PO DAILY Qty: 30 11RF amlodipine 10 mg tablet 10 mg PO QAM oxybutynin chloride 5 mg tablet 5 mg PO Q8H PRN (Reason: bladder spasms) Qty: 20 0RF Eliquis 5 mg Tablet 5 mg PO BID 30 Days Qty: 60 0RF amiodarone 200 mg Tablet 200 mg PO BIDM 30 Days Qty: 60 0RF clopidogrel 75 mg Tablet 75 mg PO QAM 30 Days Qty: 30 0RF Discontinued chlorthalidone 25 mg tablet 12.5 mg PO BID Qty: 90 3RF Discharge Orders: Discharge Order (Routine); Ordered 12/03/22 Ordered By: Wero Cole Admission Data Admit Date/Time: 11/26/22 03:25 Attending Provider: Wero Cole Admit Provider: Marija Goldsmith Primary Care Provider: Delmi Umanzor Other Providers: [facility] ; Marija Goldsmith ; Buddy Lomax ; Faheem Krishnamurthy ; Alysha Encarnacion ; Thaddeus Rivas ; Sridevi Camarillo ; Dia Agee ; Emilia Banegas ; Ginny Alejo ; Radha Martínez ; Dewayne Perry ; Ladan Villalobos Coding Level of Care Code 73517 INP/OBS DISCH >30 MIN Diagnoses KENDRICK (acute kidney injury) N17.9 Hyperkalemia, diminished renal excretion E87.5 Left flank mass R19.00 Hypertension I10 PAF (paroxysmal atrial fibrillation) I48.0 Diabetes mellitus, type 2 E11.9 Dyslipidemia E78.5 UTI (urinary tract infection) N39.0 Physical deconditioning R53.81
== END 2022-12-03 15:30 | DRG 660 ==
LOC: ED 00:03 → SUATTDRO 03:25 → 2E 03:25 → 2N 11-29 02:49
DX: I95.9 Hypotension, unspecified; E87.5 Hyperkalemia; R07.89 Other chest pain; I12.9 Hypertensive chronic kidney disease with stage 1 through stage 4 chronic kidney disease, or unspecified chronic kidney disease; R62.7 Adult failure to thrive; Z95.5 Presence of coronary angioplasty implant and graft; E11.22 Type 2 diabetes mellitus with diabetic chronic kidney disease; Z85.51 Personal history of malignant neoplasm of bladder; B96.89 Other specified bacterial agents as the cause of diseases classified elsewhere; N13.6 Pyonephrosis; I48.0 Paroxysmal atrial fibrillation; B37.49 Other urogenital candidiasis; Z79.84 Long term (current) use of oral hypoglycemic drugs; R53.1 Weakness; R22.2 Localized swelling, mass and lump, trunk; Z96.0 Presence of urogenital implants; Z79.899 Other long term (current) drug therapy; N17.9 Acute kidney failure, unspecified; Z79.01 Long term (current) use of anticoagulants; I25.2 Old myocardial infarction; E83.39 Other disorders of phosphorus metabolism; E86.0 Dehydration; Z87.891 Personal history of nicotine dependence; Z83.438 Family history of other disorder of lipoprotein metabolism and other lipidemia; E87.20 Acidosis, unspecified; Z82.49 Family history of ischemic heart disease and other diseases of the circulatory system; I25.10 Atherosclerotic heart disease of native coronary artery without angina pectoris; N18.9 Chronic kidney disease, unspecified; Z79.02 Long term (current) use of antithrombotics/antiplatelets; E78.5 Hyperlipidemia, unspecified; N40.0 Benign prostatic hyperplasia without lower urinary tract symptoms

== ENCOUNTER 2022-12-19 21:06 | Inpatient (IN) ==
[2022-12-19] MEDS ORDERED: SODIUM CHLORIDE 0.9% 500 ML IV STA (23:58)
--- NOTE | 2022-12-20 00:03 | Emergency Department Note ---
History of Present Illness General Chief complaint: Constipation Time Seen by Provider: 12/19/22 23:44 Source: patient, RN notes reviewed and old records reviewed (I have reviewed an office visit from today) Mode of arrival: ambulatory Limitations: no limitations History of Present Illness Maximum Pain Intensity: 4 This patient is 77-year-old male comes in after feeling weak. He says he been having trouble with his bowels. He tells me is not constipated she is having trouble with consistent bowel nausea also the Kennedy catheter in for the last 5 days he had weakness in his legs he has been deconditioned he was just discharged from [facility]. He saw his doctor today and was having a hard time getting around he had no fall or trauma no chest pain or shortness of breath no fever or chills. Denies significant back pain Home Medications Medication Instructions Recorded Confirmed Type metformin 500 mg tablet,extended 500 mg PO BID #180 tabs 03/19/22 12/20/22 Rx release 24 hr metoprolol succinate 200 mg 200 mg PO BID #180 tabs 06/13/22 12/20/22 Rx tablet,extended release 24 hr atorvastatin 80 mg tablet 80 mg PO QAM #90 tabs 07/09/22 12/20/22 Rx amlodipine 10 mg tablet 10 mg PO QAM 09/14/22 12/20/22 History oxybutynin chloride 5 mg tablet 5 mg PO Q8H PRN bladder spasms #20 09/24/22 12/20/22 Rx tabs finasteride 5 mg tablet 5 mg PO DAILY #30 tabs 10/02/22 12/20/22 Rx calcium acetate(phosphat bind) 667 667 mg PO TIDM #1 cap 12/03/22 12/20/22 Rx mg capsule polyethylene glycol 3350 17 gram 17 g PO DAILY PRN constipation #14 12/03/22 12/20/22 Rx oral powder packet (Miralax) ea sulfamethoxazole 800 1 tab PO Q12 #0 tabs 12/03/22 12/13/22 Rx mg-trimethoprim 160 mg tablet (Bactrim DS) Bedside Commode #1 ea 12/19/22 Rx albuterol sulfate 90 mcg/actuation 2 puff inhalation Q6H PRN 12/20/22 12/20/22 History aerosol inhaler Shortness Of Breath Or Wheezing clopidogrel 75 mg tablet 75 mg PO QAM 12/20/22 12/20/22 History Allergies Allergy/AdvReac Type Severity Reaction Status Date / Time No Known Allergies Allergy Verified 12/20/22 00:46 Past Med/Surg History Medical History ARF (acute renal failure) Benign enlargement of prostate Bladder cancer newly diagnosed 08/2022. CAD (coronary artery disease) "Multi-Vessel CAD s/p Ostial and Proximal LAD NEVA x 2 and OM1 NEVA 07/01/2018 (with residual borderline D2 stenosis, OM2 stenosis, RCA/PDA stenoses which are felt amenable to complex PCI" follows with [facility] Diabetes mellitus, type 2 NIDDM Dyslipidemia History of colon polyps Hypertension Low back pain Multi-vessel coronary artery stenosis Myocardial Infarction ~3 years ago. follows with Erik Beltran. Tubular adenoma of colon Surgical History H/O colonoscopy 08/2016, repeat 5 yrs History of cardiac cath ~3 years ago, "failed stress test, needed cath", [facility] History of open reduction and internal fixation (ORIF) procedure Lt. Femur Stented coronary artery ~3 years ago, [facility], following cath at [facility], x1 stent (resolut summer) placed; now f/u Luis Manuel Beltran PA-C, [facility] Cardio. Family History Father Non-Hodgkin's lymphoma Mother Multiple myeloma Sister Dyslipidemia Heart disease Hypertension Uncle Myocardial infarction Other No family history of adverse response to anesthesia Denies family history of Ovarian cancer Prostate cancer Breast cancer Colorectal cancer Social History Smoking Status: Former smoker Second Hand Exposure: No; Do You Dip or Chew Tobacco: No; Hx Alcohol Use: No Hx Substance Use: No Preferred Language: Yoruba Communication Ability: Effective Visual Impairment: Limited Hearing Ability: Normal Air Traffic Coordinator Required: No Beliefs That Will Affect Care: None marital status: Single Current Living Situation: Alone current occupational status: retired How many Children do You have: 0 Feels Safe at Home: Yes Childhood Exposure to Second-Hand Smoke: Yes caffeine: Yes Dental Care, Regularly: Yes Physical Activity Frequency: Daily Seatbelt Use: always Sunscreen Use: Yes Assistive Devices: Walker Review of Systems A total of 10 systems reviewed and were otherwise negative Physical Exam Vital Signs Vital Signs - 24 hr 12/19/22 21:08 12/19/22 22:20 12/19/22 22:20 Temperature 36.6 C Temperature Source Temporal Artery Scan Pulse Rate 80 79 Pulse Rate [Brachial] 78 Pulse Rate from SpO2 Sensor Pulse Rhythm [Brachial] Regular Pulse Strength [Brachial] Normal Respiratory Rate 16 14 Respiratory Effort / Characteristics Non-Labored Spontaneous Non-Labored Respiratory Depth Normal Normal Respiratory Pattern Regular Regular Blood Pressure 132/72 Blood Pressure [Right Arm] 157/81 H Blood Pressure Mean 92 Blood Pressure Mean [Right Arm] 106 Blood Pressure Position Sitting Pulse Oximetry 98 98 Oxygen Delivery Method Room Air Room Air Sepsis Recent Fever Within 48 Hours No Sepsis New/Unexplained Change in Mental Status No Sepsis Action Taken by Nursing No Action Required 12/19/22 22:20 12/19/22 22:30 12/19/22 23:00 Temperature Temperature Source Pulse Rate 75 74 67 Pulse Rate [Brachial] Pulse Rate from SpO2 Sensor 76 74 67 Pulse Rhythm [Brachial] Pulse Strength [Brachial] Respiratory Rate 14 24 14 Respiratory Effort / Characteristics Respiratory Depth Respiratory Pattern Blood Pressure 157/81 H 156/75 H 141/76 H Blood Pressure [Right Arm] Blood Pressure Mean 106 102 97 Blood Pressure Mean [Right Arm] Blood Pressure Position Pulse Oximetry 98 99 98 Oxygen Delivery Method Sepsis Recent Fever Within 48 Hours Sepsis New/Unexplained Change in Mental Status Sepsis Action Taken by Nursing 12/19/22 23:30 12/20/22 00:18 Temperature Temperature Source Pulse Rate 89 Pulse Rate [Brachial] Pulse Rate from SpO2 Sensor 89 Pulse Rhythm [Brachial] Pulse Strength [Brachial] Respiratory Rate 20 Respiratory Effort / Characteristics Respiratory Depth Respiratory Pattern Blood Pressure 185/93 H Blood Pressure [Right Arm] Blood Pressure Mean 123 Blood Pressure Mean [Right Arm] Blood Pressure Position Pulse Oximetry 100 99 Oxygen Delivery Method Room Air Sepsis Recent Fever Within 48 Hours Sepsis New/Unexplained Change in Mental Status Sepsis Action Taken by Nursing General: Well developed well nourished somewhat cachectic older male who appears in no acute distress, breathing comfortably on room air. Normal speech HEENT: Normal cephalic atraumatic. Pupils are equal round and reactive to light. Extraocular movements are intact. Oropharynx is pink with moist mucous membranes. No swelling of the mouth lips or tongue. Neck: Supple with a midline trachea. No meningeal signs or stiffness, no JVD or bruits. No Stridor. Chest: Clear to auscultation bilaterally. No wheezes or rhonchi. No increased work of breathing. Heart: Regular rate and rhythm without murmurs or gallops. Abdomen: Soft nontender, nondistended without rebound guarding or rigidity. Kennedy catheter in place Extremities: No cyanosis clubbing or edema. No calf tenderness or assymetry. He has a missing a toenail on his left fifth toe but there is no bleeding or evidence of infection redness or warm Spine/Back. Non tender to palpation. No CVA tenderness Skin: Good turgor without rashes. Neurologic exam: Cranial nerves two through 12 are intact. Motor and sensation are intact and symmetrical throughout. Course Administered Medications Discontinued Medications Sodium Chloride (Nss) 500 mls @ 999 mls/hr IV .Q31M STA Stop: 12/20/22 00:28 Last Infusion: 12/20/22 01:03 Dose: 0 mls/hr Documented By: Admin: 12/20/22 00:37 Dose: 999 mls/hr Documented By: SOFIE Medical Decision Making Differential Diagnosis Weakness, infection, constipation, bowel obstruction, UTI, spinal disease, electrolyte or metabolic abnormality, deconditioning Medical Records Attestation: I reviewed the patient's medical records. Home Medications Current Medication List: was personally reviewed by me Laboratory Data Attestation: I reviewed the patient's lab results. 12/20/22 00:20 12/20/22 00:20 Lab Results 12/20/22 12/20/22 Range/Units 00:20 00:20 WBC 7.99 (4.8-10.8) K/ul RBC 3.84 L (4.70-6.10) M/uL Hgb 10.6 L (14.0-18.0) g/dl Hct 33.0 L (42.0-52.0) % MCV 85.9 (80.0-100.0) fL MCH 27.6 (25.0-34.0) pg MCHC 32.1 (32.0-36.0) g/dL RDW Std Deviation 57.1 H (36.4-46.3) fL RDW Coeff of Elsi 18.6 H (11.5-14.5) % Plt Count 284 (130-400) K/uL MPV 9.8 (9.4-12.4) fL Immature Gran % (Auto) 0.3 % Neut % (Auto) 60.4 % Lymph % (Auto) 32.4 % [place] % (Auto) 5.4 % Eos % (Auto) 1.1 % Baso % (Auto) 0.4 % Neut # (Auto) 4.83 (1.40-6.50) K/uL Lymph # (Auto) 2.59 (1.2-3.4) K/uL [place] # (Auto) 0.43 (0.11-0.59) K/uL Eos # (Auto) 0.09 (0-0.50) K/uL Baso # (Auto) 0.03 (0-0.2) K/uL Immature Gran # (Auto) 0.02 (0.01-0.20) K/uL Sodium 138 (136-145) mmol/L Potassium 5.0 (3.5-5.1) mmol/L Chloride 108 H (98-107) mmol/L Carbon Dioxide 23 (21-32) mmol/L Anion Gap 7 (3-11) BUN 30 H (6-23) mg/dl Creatinine 2.41 H (0.6-1.4) mg/dl Est Cr Clr Drug Dosing 24.8 ml/min Est GFR ( Amer) 29.3 ml/min Est GFR (Non-Af Amer) 25.3 ml/min BUN/Creatinine Ratio 12.4 (10-20) Glucose 92 (70-99(Fasting)) mg/dl Calcium 8.9 (8.6-10.3) mg/dl Total Bilirubin 0.3 (0.2-1.0) mg/dl AST 20 (13-39) U/L ALT 19 (7-52) U/L Alkaline Phosphatase 104 (34-104) U/L Total Protein 7.4 (6.0-8.3) gm/dl Albumin 3.7 (3.4-5.0) gm/dl Globulin 3.7 (2.5-4.0) gm/dl Albumin/Globulin Ratio 1.0 (0.9-2) Lipase 186 H (11-82) U/L Imaging Data Attestation: I personally reviewed and interpreted this imaging study as follows: My Impression: CT of the abdomen pelvisstents are in place with baseline hydro Radiologist's Impression: Abdomen/Pelvis CT 12/19/22 23:58 CR Exam(s): CT ABDOMEN + PELVIS Without Contrast EXAM: CT Abdomen and Pelvis Without Intravenous Contrast CLINICAL HISTORY: Reason for exam: eval for bowel obst. TECHNIQUE: Axial computed tomography images of the abdomen and pelvis without intravenous contrast. CTDI is 10.54 mGy and DLP is 493.08 mGy-cm. Automated exposure control was utilized for the study. A dose lowering technique was utilized adhering to the principles of ALARA. COMPARISON: CT Abdomen Pelvis dated 11/26/2022 FINDINGS: Lung bases: Unremarkable. No mass. No consolidation. Heart: Coronary calcifications. ABDOMEN: Liver: Unremarkable. Gallbladder and bile ducts: Query sludge or small stones in the gallbladder. Similar to the prior. No ductal dilation. Pancreas: Unremarkable. No ductal dilation. Spleen: Unremarkable. No splenomegaly. Adrenals: Unremarkable. No mass. Kidneys and ureters: Bilateral double-J ureteral stents. Moderate bilateral hydroureteronephrosis, similar to the prior. Similar position on the right with the proximal end in a superior calyx. Change in position on the left with the proximal end now in a superior calyx. Gas bubble in the left renal collecting system and in the urinary bladder/bladder wall. Stomach and bowel: Large amount of stool in the distended rectum, increased since the prior. Rectum distended to 8 cm. Mild surrounding stranding. No mucosal thickening. No evidence of small bowel obstruction. PELVIS: Appendix: No findings to suggest acute appendicitis. Bladder: Mild bladder wall thickening and surrounding stranding. Interval placement of Kennedy catheter. Balloon is malpositioned within the prostatic urethra. Reproductive: Enlarged prostate. ABDOMEN and PELVIS: Intraperitoneal space: Unremarkable. No free air. No significant fluid collection. Bones/joints: Chronic deformity and degenerative changes of the proximal left femur. No acute fracture. No dislocation. Soft tissues: Unremarkable. Vasculature: Marked aortoiliac vascular calcifications. No abdominal aortic aneurysm. Lymph nodes: Unremarkable. No enlarged lymph nodes. IMPRESSION: 1. Interval placement of Kennedy catheter. Balloon is malpositioned within the prostatic urethra. Recommend repositioning. 2. Bilateral double-J ureteral stents. Moderate bilateral hydroureteronephrosis, similar to the prior. Similar position on the right with the proximal end in a superior calyx. Change in position on the left with the proximal end now in a superior calyx. Gas bubble in the left renal collecting system and in the urinary bladder/bladder wall. May relate to recent instrumentation and/or infection. 3. Mild bladder wall thickening and surrounding stranding. Correlate for cystitis. 4. Large amount of stool in the distended rectum, increased since the prior. Rectum distended to 8 cm. Mild surrounding stranding. Correlate for fecal impaction/stercoral colitis. Communications: Verify Receipt Electronically signed by: Smith Carvalho M.D. 12/20/22 01:36 AM MDM Narrative This patient comes in as described above. He was placed on a authorization representative in room B9. Is here for some bowel complaints also generalized weakness he has been deconditioned he was just left [facility] and feels very weak. He has a Kennedy catheter in place. Multiple blood testing obtained IV access stable I did a CAT scan without contrast given his history of kidney injury recently. Was hydrated gently with a fluid bolus he was reassessed frequently. Concerned that his kidney function is going back up with a creatinine of 2.4. CAT scan shows stents in place. He does have some cysts constipation although his says his bowels are moving intermittently. I talked him at length and reviewed a note f rom his doctor's office he has continued weakness and difficulty at home I do think he needs to come back in the hospital he has not been eating or drinking as much and I think is may be headed in the wrong direction and needs to potentially placement as well. I have consulted Dr. Goldsmith to see the patient in the ER for potential admission/observation Continuous authorization representative: Orders placed in EMR for continuous cardiac monitoring: Upon my evaluation the patient was noted to be in normal sinus rhythm with a rate of 69. Impression & Plan Weakness, ARF (acute renal failure), Hydronephrosis, Diabetes mellitus, type 2, Constipation Discharge Plan Visit Data Chief Complaint: Constipation ED Provider: William Smith Discharge Problem: Weakness, ARF (acute renal failure), Hydronephrosis, Diabetes mellitus, type 2, Constipation Forms Stand Alone Forms: My [employer] Prescriptions Prescriptions: No Action metformin 500 mg tablet extended release 24 hr 500 mg PO BID Qty: 180 3RF Rx Instructions: PER PT "SINCE DIET IS MUCH BETTER, DO NOT ALWAYS TAKE SECOND DOSE OF METFORMIN". metoprolol succinate 200 mg tablet extended release 24 hr 200 mg PO BID Qty: 180 3RF atorvastatin 80 mg tablet 80 mg PO QAM Qty: 90 3RF (DME) Bedside Commode Misc See Rx Instructions .Route Qty: 1 0RF Rx Instructions: As directed finasteride 5 mg tablet 5 mg PO DAILY Qty: 30 11RF polyethylene glycol 3350 [Miralax] 17 gram Powder In Packet 17 g PO DAILY PRN (Reason: constipation) Qty: 14 0RF sulfamethoxazole-trimethoprim [Bactrim DS] 800-160 mg Tablet 1 tab PO Q12 Qty: 0 0RF Rx Instructions: ORDERED 12/03/22. UNABLE TO VERIFY IF PT STILL TAKING THIS MED. PT "DOESN'T KNOW MEDS". calcium acetate(phosphat bind) 667 mg Capsule 667 mg PO TIDM Qty: 1 0RF amlodipine 10 mg tablet 10 mg PO QAM oxybutynin chloride 5 mg tablet 5 mg PO Q8H PRN (Reason: bladder spasms) Qty: 20 0RF clopidogrel 75 mg tablet 75 mg PO QAM albuterol sulfate 90 mcg/actuation HFA aerosol inhaler 2 puff INHALATION Q6H PRN (Reason: Shortness Of Breath Or Wheezing) Referrals Referrals: Delmi Umanzor MD [Primary Care Provider] - ARF (acute renal failure) Qualifiers: Acute renal failure type: unspecified Qualified Code(s): N17.9 - Acute kidney failure, unspecified Hydronephrosis Qualifiers: Hydronephrosis type: unspecified Qualified Code(s): N13.30 - Unspecified hydronephrosis Diabetes mellitus, type 2 Qualifiers: Diabetes mellitus long-term insulin use: without terminal system operator use Diabetes mellitus complication status: without complication Qualified Code(s): E11.9 - Type 2 diabetes mellitus without complications Constipation Qualifiers: Constipation type: unspecified constipation type Qualified Code(s): K59.00 - Constipation, unspecified
[2022-12-20 00:35] LABS: Basophils # (auto) 0.03 K/uL (0-0.2); Basophils % (auto) 0.4 %; Eosinophils # (auto) 0.09 K/uL (0-0.50); Eosinophils % (auto) 1.1 %; Hemoglobin 10.6 g/dl (14.0-18.0); Immature Granulocytes # (auto) 0.02 K/uL (0.01-0.20); Immature Granulocytes % (auto) 0.3 %; Lymphocytes # (auto) 2.59 K/uL (1.2-3.4); Lymphocytes % (auto) 32.4 %; Mean Corpuscular Hemoglobin 27.6 pg (25.0-34.0); Mean Corpuscular Hgb Conc 32.1 g/dL (32.0-36.0); Mean Corpuscular Volume 85.9 fL (80.0-100.0); Mean Platelet Volume 9.8 fL (9.4-12.4); Monocytes # (auto) 0.43 K/uL (0.11-0.59); Monocytes % (auto) 5.4 %; Neutrophils # (auto) 4.83 K/uL (1.40-6.50); Neutrophils % (auto) 60.4 %; Platelet Count 284 K/uL (130-400); RDW Coefficient of Variation 18.6 % (11.5-14.5); RDW Standard Deviation 57.1 fL (36.4-46.3); Red Blood Count 3.84 M/uL (4.70-6.10); White Blood Count 7.99 K/ul (4.8-10.8)
[2022-12-20 00:54] LABS: Albumin Level 3.7 gm/dl (3.4-5.0); BUN Creatinine Ratio 12.4 (10-20); Bilirubin,Total 0.3 mg/dl (0.2-1.0); Calcium 8.9 mg/dl (8.6-10.3); Creatinine Clr Calc Pharmacy 24.8 ml/min; Est GFR (African American) 29.3 ml/min; Est GFR (Non-African American) 25.3 ml/min; Globulin 3.7 gm/dl (2.5-4.0); Total Protein 7.4 gm/dl (6.0-8.3)
--- NOTE | 2022-12-20 01:37 | CT Scan Report ---
Exam(s): CT ABDOMEN + PELVIS Without Contrast EXAM: CT Abdomen and Pelvis Without Intravenous Contrast CLINICAL HISTORY: Reason for exam: eval for bowel obst. TECHNIQUE: Axial computed tomography images of the abdomen and pelvis without intravenous contrast. CTDI is 10.54 mGy and DLP is 493.08 mGy-cm. Automated exposure control was utilized for the study. A dose lowering technique was utilized adhering to the principles of ALARA. COMPARISON: CT Abdomen Pelvis dated 11/26/2022 FINDINGS: Lung bases: Unremarkable. No mass. No consolidation. Heart: Coronary calcifications. ABDOMEN: Liver: Unremarkable. Gallbladder and bile ducts: Query sludge or small stones in the gallbladder. Similar to the prior. No ductal dilation. Pancreas: Unremarkable. No ductal dilation. Spleen: Unremarkable. No splenomegaly. Adrenals: Unremarkable. No mass. Kidneys and ureters: Bilateral double-J ureteral stents. Moderate bilateral hydroureteronephrosis, similar to the prior. Similar position on the right with the proximal end in a superior calyx. Change in position on the left with the proximal end now in a superior calyx. Gas bubble in the left renal collecting system and in the urinary bladder/bladder wall. Stomach and bowel: Large amount of stool in the distended rectum, increased since the prior. Rectum distended to 8 cm. Mild surrounding stranding. No mucosal thickening. No evidence of small bowel obstruction. PELVIS: Appendix: No findings to suggest acute appendicitis. Bladder: Mild bladder wall thickening and surrounding stranding. Interval placement of Kennedy catheter. Balloon is malpositioned within the prostatic urethra. Reproductive: Enlarged prostate. ABDOMEN and PELVIS: Intraperitoneal space: Unremarkable. No free air. No significant fluid collection. Bones/joints: Chronic deformity and degenerative changes of the proximal left femur. No acute fracture. No dislocation. Soft tissues: Unremarkable. Vasculature: Marked aortoiliac vascular calcifications. No abdominal aortic aneurysm. Lymph nodes: Unremarkable. No enlarged lymph nodes. IMPRESSION: 1. Interval placement of Kennedy catheter. Balloon is malpositioned within the prostatic urethra. Recommend repositioning. 2. Bilateral double-J ureteral stents. Moderate bilateral hydroureteronephrosis, similar to the prior. Similar position on the right with the proximal end in a superior calyx. Change in position on the left with the proximal end now in a superior calyx. Gas bubble in the left renal collecting system and in the urinary bladder/bladder wall. May relate to recent instrumentation and/or infection. 3. Mild bladder wall thickening and surrounding stranding. Correlate for cystitis. 4. Large amount of stool in the distended rectum, increased since the prior. Rectum distended to 8 cm. Mild surrounding stranding. Correlate for fecal impaction/stercoral colitis. Communications: Verify Receipt Electronically signed by: Smith Carvalho M.D. 12/20/22 01:36 AM
--- NOTE | 2022-12-20 02:09 | History & Physical Report ---
Date of Service December 20, 2022 Assessment & Plan (1) Weakness: Plan: 77 yo male with PMHx of bladder cancer s/p TURBT x2, bilateral ureteral stents with recent exchange (11/29/22), anemia, recurrent UTI, BPH, colon polyps, CAD s/p stent, HTN, HLD, and afib presents with low urine output, constipation, and weakness. #KENDRICK #H/o bladder cancer s/p TURBT x2 #H/o bilateral hydronephrosis with retrograde flow -Patient follows with [facility] for multiple issues. He was recently discharged from [facility] 12/03/22 for an KENDRICK d/t bilateral ureteral stent failure. Stents were exchanged and he was discharged on a khan catheter. He presents today with one day urinary retention and abdmonal pressure despite having khan in place. In the ED, he was given a 500ml bolus. Bladder scan showed 600mls. His khan was repositioned and had great urine output with acute hematuria likely due to trauma. Presume KENDRICK due to retention. UA with +blood, +LE, +WBC, neg bacteria. Urine cx pending. -Cr on admission, 2.4. Baseline ~1.2. -CT A/P: bilateral double-J ureteral stents.Moderate bilateral hydroureteronephrosis, similar to the prior. -follow labs, consider urology consult however outpatient f/u likely appropriate -will hold off on abx for now until cultures result. Minimal to urinary symptoms. He was also on abx for a length amount of time in November. #Ambulatory dysfunction -Discharged to [facility] for rehab after previous hospitalization. He endorses generalized weakness especially in the lower extremities since then. He states rehab focused more on his upper extremities. He has not been drinking/eating much lately. Encourage po intake. -PT/OT ordered, will likely need further rehab #Constipation -no BM for past 3 days but did have a BM in the ED. Likely secondary to urinary retention. -CT A/P: Large amount of stool in the distended rectum -on prn miralax at home. Will schedule BID for relief. #Anemia -Hgb 10.6 on admission, appears chronic and near baseline. Previously attributed to blood loss anemia. -iron studies ordered #Afib -EKG with NSR -cont. amiodarone -hold high dose metoprolol since rate stable in low 60s. -hold eliquis d/t hematuria #HLD -cont. statin #HTN -cont. amlodipine, metoprolol #CAD s/p stent -cont. statin, metoprolol -hold plavix d/t hematuria #BPH -cont. finasteride #DM2 -hold home metformin. Started on SSI. DVT ppx: SCDs; hold chemical d/t hematuria FEN/GI: Full liquid, advance as tolerated Code Status: Full Dispo: Med Tele (2) Physical deconditioning: (3) Constipation: (4) Urinary retention: (5) KENDRICK (acute kidney injury): (6) Bladder tumor: (7) PAF (paroxysmal atrial fibrillation): (8) Hypertension: (9) Diabetes mellitus, type 2: (10) S/P ureteral stent placement: (11) Dyslipidemia: (12) History of colon polyps: (13) CAD (coronary artery disease): (14) Stented coronary artery: (15) Ambulatory dysfunction: History of Present Illness Chief Complaint: consipation, weakness Primary Care Provider: Delmi Umanzor MD 77 yo male with PMHx of bladder cance s/p TURBT x2, bilateral ureteral stents with recent exchange (11/29/22), anemia, recurrent UTI, BPH, colon polyps, CAD s/p stent, HTN, HLD, and afib presents with low urine output, constipation, and weakness. He was recently discharged from [facility] at the end of November for KENDRICK 2/2 ob struction which was resolved with bilateral ureteral stent exchange. He was with khan catheter in place and failed outpatient void trial so has had his khan in since. He just completed rehab at [facility] a few days back but states he has still felt weak in his legs since. Earlier yesterday he also noticed his khan was not draining much and he had abdominal distention. Prior to admission, he had not had a BM for the past 3 days. Denies fever, headache, sob, chest pain, abd pain, N/V/D, dysuria, back pain. Allergies Allergy/AdvReac Type Severity Reaction Status Date / Time No Known Allergies Allergy Verified 12/20/22 00:46 Home Medications Medication Instructions Recorded Confirmed Type metformin 500 mg tablet,extended 500 mg PO BID #180 tabs 03/19/22 12/20/22 Rx release 24 hr metoprolol succinate 200 mg 200 mg PO BID #180 tabs 06/13/22 12/20/22 Rx tablet,extended release 24 hr atorvastatin 80 mg tablet 80 mg PO QAM #90 tabs 07/09/22 12/20/22 Rx amlodipine 10 mg tablet 10 mg PO QAM 09/14/22 12/20/22 History oxybutynin chloride 5 mg tablet 5 mg PO Q8H PRN bladder spasms #20 09/24/22 12/20/22 Rx tabs finasteride 5 mg tablet 5 mg PO DAILY #30 tabs 10/02/22 12/20/22 Rx calcium acetate(phosphat bind) 667 667 mg PO TIDM #1 cap 12/03/22 12/20/22 Rx mg capsule polyethylene glycol 3350 17 gram 17 g PO DAILY PRN constipation #14 12/03/22 12/20/22 Rx oral powder packet (Miralax) ea sulfamethoxazole 800 1 tab PO Q12 #0 tabs 12/03/22 12/13/22 Rx mg-trimethoprim 160 mg tablet (Bactrim DS) Bedside Commode #1 ea 12/19/22 Rx albuterol sulfate 90 mcg/actuation 2 puff inhalation Q6H PRN 12/20/22 12/20/22 History aerosol inhaler Shortness Of Breath Or Wheezing clopidogrel 75 mg tablet 75 mg PO QAM 12/20/22 12/20/22 History Past Med/Surg History Medical History (Updated 12/20/22 @ 03:28 by Oumar Rivas DO) Abdominal pain Acute hyperkalemia Acute kidney injury Acute renal failure Acute urinary retention ARF (acute renal failure) Benign enlargement of prostate Bladder cancer newly diagnosed 08/2022. CAD (coronary artery disease) "Multi-Vessel CAD s/p Ostial and Proximal LAD NEVA x 2 and OM1 NEVA 07/01/2018 (with residual borderline D2 stenosis, OM2 stenosis, RCA/PDA stenoses which are felt amenable to complex PCI" follows with [facility] Chest tightness Dehydration Diabetes mellitus, type 2 NIDDM Dyslipidemia Elevated troponin Encounter for pre-operative examination Epigastric abdominal pain Fall Generalized weakness Hematuria History of colon polyps Hyperkalemia Hyperkalemia, diminished renal excretion Hypertension Hyponatremia Joint pain, knee Leukocytosis Low back pain Microscopic hematuria Multi-vessel coronary artery stenosis Myocardial Infarction ~3 years ago. follows with [facility]. Palpitations Tubular adenoma of colon Urinary tract infection Weakness Surgical History H/O colonoscopy 08/2016, repeat 5 yrs History of cardiac cath ~3 years ago, "failed stress test, needed cath", [place] History of open reduction and internal fixation (ORIF) procedure Lt. Femur Stented coronary artery ~3 years ago, [facility], following cath at [facility], x1 stent (resolut summer) placed; now f/u Luis Manuel Beltran PA-C, [facility] Cardio. Family History Father Non-Hodgkin's lymphoma Mother Multiple myeloma Sister Dyslipidemia Heart disease Hypertension Uncle Myocardial infarction Other No family history of adverse response to anesthesia Denies family history of Ovarian cancer Prostate cancer Breast cancer Colorectal cancer Social History Smoking Status: Former smoker Second Hand Exposure: No; Do You Dip or Chew Tobacco: No; Hx Alcohol Use: No Hx Substance Use: No Preferred Language: Lithuanian Communication Ability: Effective Visual Impairment: Limited Hearing Ability: Normal Behavior Management Specialist Required: No Beliefs That Will Affect Care: None marital status: Single Current Living Situation: Alone current occupational status: retired How many Children do You have: 0 Feels Safe at Home: Yes Safety Concerns: Feels Safe At This Time Childhood Exposure to Second-Hand Smoke: Yes caffeine: Yes Dental Care, Regularly: Yes Physical Activity Frequency: Daily Seatbelt Use: always Sunscreen Use: Yes Assistive Devices: Walker Assistive Devices Comment: Wallet Review of Systems 2 Review of Systems: All systems reviewed & are unremarkable except as noted in HPI & below Physical Exam Physical Exam: Constitutional: in no acute distress, pleasant and normal affect, intact memory. AOx3. Vitals as above. HEENT: No scleral injection or discharge.Dry mucous membranes. Neck: Supple without lymphadenopathy or thyromegaly. Trachea midline. Lungs: +bibasilar wheezing. No rales/rhonchi. Cardiac: Regular rate and rhythm. No murmurs. No extremity edema. 2+ distal p eripheral pulses. Abdomen: Bowel sounds present. Soft, nontender, and nondistended.No guarding. No hepatosplenomegaly. MSK: No cyanosis or clubbing. Lower extremity motor strength 4/5 bilaterally Skin: No abnormal rashes, warm, dry. Neurologic: no focal deficits : khan in place, bag with pink/red urine Results & Data Results & Data Vital Signs (Past 12 Hours) Vital Signs Temp Pulse Pulse Resp BP BP Pulse Ox 12/20/22 00:18 99 12/19/22 23:30 89 20 185/93 H 100 12/19/22 23:00 67 14 141/76 H 98 12/19/22 22:30 74 24 156/75 H 99 12/19/22 22:20 75 14 157/81 H 98 12/19/22 22:20 79 12/19/22 22:20 78 14 157/81 H 98 12/19/22 21:08 36.6 C 80 16 132/72 98 O2 Del Method 12/20/22 00:18 Room Air 12/19/22 23:30 12/19/22 23:00 12/19/22 22:30 12/19/22 22:20 12/19/22 22:20 12/19/22 22:20 Room Air 12/19/22 21:08 Room Air Laboratory Results Laboratory Results WBC 7.99 K/ul (4.8-10.8) 12/20/22 00:20 RBC 3.84 M/uL (4.70-6.10) L 12/20/22 00:20 Hgb 10.6 g/dl (14.0-18.0) L 12/20/22 00:20 Hct 33.0 % (42.0-52.0) L 12/20/22 00:20 MCV 85.9 fL (80.0-100.0) 12/20/22 00:20 MCH 27.6 pg (25.0-34.0) 12/20/22 00:20 MCHC 32.1 g/dL (32.0-36.0) 12/20/22 00:20 RDW Std Deviation 57.1 fL (36.4-46.3) H 12/20/22 00:20 RDW Coeff of Elsi 18.6 % (11.5-14.5) H 12/20/22 00:20 Plt Count 284 K/uL (130-400) 12/20/22 00:20 MPV 9.8 fL (9.4-12.4) 12/20/22 00:20 Immature Gran % (Auto) 0.3 % 12/20/22 00:20 Neut % (Auto) 60.4 % 12/20/22 00:20 Lymph % (Auto) 32.4 % 12/20/22 00:20 Slope % (Auto) 5.4 % 12/20/22 00:20 Eos % (Auto) 1.1 % 12/20/22 00:20 Baso % (Auto) 0.4 % 12/20/22 00:20 Neut # (Auto) 4.83 K/uL (1.40-6.50) 12/20/22 00:20 Lymph # (Auto) 2.59 K/uL (1.2-3.4) 12/20/22 00:20 Slope # (Auto) 0.43 K/uL (0.11-0.59) 12/20/22 00:20 Eos # (Auto) 0.09 K/uL (0-0.50) 12/20/22 00:20 Baso # (Auto) 0.03 K/uL (0-0.2) 12/20/22 00:20 Immature Gran # (Auto) 0.02 K/uL (0.01-0.20) 12/20/22 00:20 Sodium 138 mmol/L (136-145) 12/20/22 00:20 Potassium 5.0 mmol/L (3.5-5.1) 12/20/22 00:20 Chloride 108 mmol/L (98-107) H 12/20/22 00:20 Carbon Dioxide 23 mmol/L (21-32) 12/20/22 00:20 Anion Gap 7 (3-11) 12/20/22 00:20 BUN 30 mg/dl (6-23) H 12/20/22 00:20 Creatinine 2.41 mg/dl (0.6-1.4) H 12/20/22 00:20 Est Cr Clr Drug Dosing 24.8 ml/min 12/20/22 00:20 Est GFR ( Amer) 29.3 ml/min 12/20/22 00:20 Est GFR (Non-Af Amer) 25.3 ml/min 12/20/22 00:20 BUN/Creatinine Ratio 12.4 (10-20) 12/20/22 00:20 Glucose 92 mg/dl (70-99(Fasting)) 12/20/22 00:20 Calcium 8.9 mg/dl (8.6-10.3) 12/20/22 00:20 Total Bilirubin 0.3 mg/dl (0.2-1.0) 12/20/22 00:20 AST 20 U/L (13-39) 12/20/22 00:20 ALT 19 U/L (7-52) 12/20/22 00:20 Alkaline Phosphatase 104 U/L (34-104) 12/20/22 00:20 Total Protein 7.4 gm/dl (6.0-8.3) 12/20/22 00:20 Albumin 3.7 gm/dl (3.4-5.0) 12/20/22 00:20 Globulin 3.7 gm/dl (2.5-4.0) 12/20/22 00:20 Albumin/Globulin Ratio 1.0 (0.9-2) 12/20/22 00:20 Lipase 186 U/L (11-82) H 12/20/22 00:20 Impressions Abdomen/Pelvis CT 12/19/22 23:58 CR Exam(s): CT ABDOMEN + PELVIS Without Contrast EXAM: CT Abdomen and Pelvis Without Intravenous Contrast CLINICAL HISTORY: Reason for exam: eval for bowel obst. TECHNIQUE: Axial computed tomography images of the abdomen and pelvis without intravenous contrast. CTDI is 10.54 mGy and DLP is 493.08 mGy-cm. Automated exposure control was utilized for the study. A dose lowering technique was utilized adhering to the principles of ALARA. COMPARISON: CT Abdomen Pelvis dated 11/26/2022 FINDINGS: Lung bases: Unremarkable. No mass. No consolidation. Heart: Coronary calcifications. ABDOMEN: Liver: Unremarkable. Gallbladder and bile ducts: Query sludge or small stones in the gallbladder. Similar to the prior. No ductal dilation. Pancreas: Unremarkable. No ductal dilation. Spleen: Unremarkable. No splenomegaly. Adrenals: Unremarkable. No mass. Kidneys and ureters: Bilateral double-J ureteral stents. Moderate bilateral hydroureteronephrosis, similar to the prior. Similar position on the right with the proximal end in a superior calyx. Change in position on the left with the proximal end now in a superior calyx. Gas bubble in the left renal collecting system and in the urinary bladder/bladder wall. Stomach and bowel: Large amount of stool in the distended rectum, increased since the prior. Rectum distended to 8 cm. Mild surrounding stranding. No mucosal thickening. No evidence of small bowel obstruction. PELVIS: Appendix: No findings to suggest acute appendicitis. Bladder: Mild bladder wall thickening and surrounding stranding. Interval placement of Khan catheter. Balloon is malpositioned within the prostatic urethra. Reproductive: Enlarged prostate. ABDOMEN and PELVIS: Intraperitoneal space: Unremarkable. No free air. No significant fluid collection. Bones/joints: Chronic deformity and degenerative changes of the proximal left femur. No acute fracture. No dislocation. Soft tissues: Unremarkable. Vasculature: Marked aortoiliac vascular calcifications. No abdominal aortic aneurysm. Lymph nodes: Unremarkable. No enlarged lymph nodes. IMPRESSION: 1. Interval placement of Khan catheter. Balloon is malpositioned within the prostatic urethra. Recommend repositioning. 2. Bilateral double-J ureteral stents. Moderate bilateral hydroureteronephrosis, similar to the prior. Similar position on the right with the proximal end in a superior calyx. Change in position on the left with the proximal end now in a superior calyx. Gas bubble in the left renal collecting system and in the urinary bladder/bladder wall. May relate to recent instrumentation and/or infection. 3. Mild bladder wall thickening and surrounding stranding. Correlate for cystitis. 4. Large amount of stool in the distended rectum, increased since the prior. Rectum distended to 8 cm. Mild surrounding stranding. Correlate for fecal impaction/stercoral colitis. Communications: Verify Receipt Electronically signed by: Smith Carvalho M.D. 12/20/22 01:36 AM Supervising Physician Co-Signing Physician Notes Patient seen and examined, chart reviewed, I agree with the assessment and plan per Dr. Rivas as above. In brief, dalila is a 77yo male presenting from home with failure to thrive. Patient with recent hospitalization for KENDRICK. During that hospital stay he had his bilateral ureteral stents replaced. He was discharged to [facility]. He reports he did fairly well while at [facility] but didn't really like the food there. He returned home on 12/13/22 - patient lives alone in a mobile home at [facility]. He has not been doing well since - unable to get up due to profound weakness. Eating and drinking very little. Patient reached out to [facility] because he is intere sted in moving into a long term or a personal care facility. He got a referral from [facility] but has not heard anything else regarding NH placement. On exam he is afebrile, HD stable Chronically ill in appearance MMM, Neck supple +S1/S2, regular, no m/r/g Lungs CTA Abd soft, NT/ND Ext warm, well perfused Labs and images reviewed. Khan bulb malpositioned - Khan replaced in the ER - some hematuria noted in the bag 77yo male presenting with failure to thrive -Khan replaced - monitor output -PT/OT evaluation re: placement needs -No additional antibiotics at this time - patient finished course of Bactrim and Fluconazole -Bowel regimen - large stool burden noted on imaging -Remainder as above Resident Activity Tracking Resident Involvement: Resident Care Provided Care Provided: Adult Hospital Medicine (3) Constipation Constipation type: unspecified constipation type Qualified Code(s): K59.00 - Constipation, unspecified (9) Diabetes mellitus, type 2 Diabetes mellitus complication status: without complication Diabetes mellitus 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
[2022-12-20 02:28] LABS: Appearance Urine Cloudy (Clear); Bilirubin Urine Negative (Negative); Blood Urine 2+ (Negative); Color Urine Red; Glucose Urine UA Negative (Negative); Ketones Urine Negative (Negative); Leukocyte Esterase Urine 1+ (Negative); Nitrite Urine Negative (Negative); Protein Urine 3+ (Negative); Urobilinogen Urine Negative (Negative)
[2022-12-20 02:42] LABS: RBC Urine >30 /hpf (0-4); WBC Urine >30 /hpf (0-5)
[2022-12-20 02:43] LABS: Bacteria Urine Negative (Negative); Epithelial Cell Urine 0-5 /lpf (0-5)
[2022-12-20] MEDS ORDERED: ALBUT/IPRATROP 3MG/0.5MG NEB 3 ML VIAL NEB STA (02:52)
[2022-12-20] MEDS ORDERED: ACETAMINOPHEN 325 MG TAB PO PRN (03:11)
[2022-12-20] MEDS ORDERED: ONDANSETRON 4 MG OD TAB PO PRN (03:11)
[2022-12-20] MEDS ORDERED: GLUCAGON FOR INJ 1 MG VIAL SQ PRN (03:30)
[2022-12-20] MEDS ORDERED: GLUCOSE 10 TAB/TUBE PO PRN (03:30)
[2022-12-20] MEDS ORDERED: DEXTROSE 50% 50 ML SYRINGE IV PRN (03:30)
[2022-12-20] MEDS ORDERED: GLUCOSE 40% GEL 15 GM TUBE PO PRN (03:30)
[2022-12-20] MEDS ORDERED: CARBOHYDRATES FOR HYPOGLYCEMIA PO PRN (03:30)
[2022-12-20 05:09] LABS: BUN Creatinine Ratio 12.7 (10-20); Calcium 8.6 mg/dl (8.6-10.3); Creatinine Clr Calc Pharmacy 28.1 ml/min; Est GFR (African American) 34.2 ml/min; Est GFR (Non-African American) 29.6 ml/min; Potassium 4.8 mmol/L (3.5-5.1)
[2022-12-20 05:28] LABS: Ferritin 105.1 ng/ml (8-388)
[2022-12-20] MEDS: INSULIN ASPART PER UNIT CHARGE SC SCH ×4 (07:29→20:33)
[2022-12-20] MEDS ORDERED: AMIODARONE 200 MG TAB PO SCH (08:00)
[2022-12-20] MEDS ORDERED: IRON SUCROSE 200 MG in 0.9 % SODIUM CHLORIDE 100 ML IV ONE (08:30)
[2022-12-20] MEDS: SODIUM CHLORIDE 0.9% 1000ML 1,000 ML IV SCH ×2 (08:42→22:32)
[2022-12-20] MEDS: METOPROLOL SUCC 50MG EXT REL TAB PO SCH ×2 (10:08→19:55)
[2022-12-20] MEDS: ATORVASTATIN 40 MG TAB PO SCH (10:09)
[2022-12-20] MEDS: FINASTERIDE 5 MG TAB PO SCH (10:09)
[2022-12-20] MEDS: amLODIPine BESYLATE 5 MG TAB PO SCH (10:09)
[2022-12-20] MEDS: POLYETHYLENE (MIRALAX) 17 GM PACK PO SCH ×2 (10:10→20:33)
--- NOTE | 2022-12-20 11:16 | Electrocardiogram Report ---
Test Reason : Blood Pressure : / mmHG Vent. Rate : 061 BPM Atrial Rate : 061 BPM P-R Int : 162 ms QRS Dur : 084 ms QT Int : 432 ms P-R-T Axes : 074 054 061 degrees QTc Int : 434 ms Normal sinus rhythm Nonspecific ST abnormality Abnormal ECG When compared with ECG of 03-DEC-2022 09:04, Nonspecific T wave abnormality no longer evident in Inferior leads Nonspecific T wave abnormality, improved in Anterolateral leads Confirmed by Ian Villalobos ([id number]) on 12/20/2022 11:16:00 AM Referred By: REFERRED SELF Confirmed By:Tadeo Villalobos
--- NOTE | 2022-12-20 12:50 | Hospitalist Progress Note ---
Date of Service December 20, 2022 Assessment & Plan (1) Hematuria: Plan: Eliquis has been discontinued. Urology consultation pending. Continue Kennedy catheter for now. Monitor renal function. (2) Ambulatory dysfunction: Plan: OT and PT assessments requested. He will need SNF placement at discharge (3) PAF (paroxysmal atrial fibrillation): Plan: Currently normal sinus rhythm. Continue metoprolol along with other medications (4) Hypertension: Plan: Stable. Continue metoprolol therapy (5) Diabetes mellitus, type 2: Plan: ADA diet. Sliding scale coverage. Continue current medical management Plan Anticipate eventual discharge to SNF facility. This was recommended at the previous hospital stay but he refused Admission and Anticipated Discharge Date Admission Date: December 20, 2022 Subjective Alert and oriented. No distress. Gross hematuria noted in the Kennedy bag. Eliquis has been discontinued. Hemoglobin currently 10.6. Will follow. Creatinine 2.1. Will follow. Urology has been consulted. He is iron deficient and parenteral iron replacement has been started. Continue current cardiac medications including high-dose metoprolol to prevent recurrence of atrial fibrillation. Review of Systems Review of Systems: Constitutional-no fever or chills ENT-no blurred vision, no double vision, no epistaxis, no sore throat Respiratory-no cough, no wheezing, no shortness of breath Cardiac-no palpitations, no chest pain, no syncope GI-no nausea, vomiting, diarrhea, melena, hematochezia -Kennedy catheter in place with gross hematuria Musculoskeletal-no joint pain, no muscle tenderness Skin-no bruising, no rashes, no pruritus Neuro-generalized weakness. Unable to ambulate. No focal deficits Psych-no depression, no anxiety Physical Exam Physical Exam: General-alert and oriented x3, no fevers, no chills HEENT-head atraumatic and normocephalic, pupils equal and reactive to light, extraocular muscles intact Neck-no lymphadenopathy or thyromegaly, trachea midline Chest-clear to auscultation percussion. No rales wheezing or rhonchi Cardiac-regular rate and rhythm, normal S1 and S2 Abdomen-normal bowel sounds, nontender, no hepatosplenomegaly GUFoley catheter in place with gross hematuria Extremities-no cyanosis, clubbing, or edema Neuro-cranial nerves II through XII intact, motor and sensory function within normal limits, generalized weakness , no focal deficits Psych-normal affect, normal mood Results & Data Results & Data Vital Signs (Past 12 Hours) Vital Signs Pulse Resp BP Pulse Ox Pulse Ox O2 Del Method O2 Del Method 12/20/22 07:59 62 19 12/20/22 07:00 127/67 12/20/22 07:00 60 14 12/20/22 07:01 62 12/20/22 06:00 59 L 14 127/71 97 Room Air 12/20/22 05:30 61 16 99 12/20/22 05:00 60 15 133/69 99 12/20/22 04:30 61 13 99 12/20/22 04:00 62 15 135/83 98 Room Air 12/20/22 03:30 69 18 147/90 H 98 Room Air 12/20/22 01:12 Room Air 12/20/22 03:20 74 20 12/20/22 03:10 64 16 99 12/20/22 03:00 67 18 98 12/20/22 02:30 66 17 141/67 H 100 12/20/22 03:22 95 Room Air 12/20/22 03:20 Room Air 12/20/22 02:33 62 12/20/22 02:00 84 14 153/100 H 100 Room Air 12/20/22 01:30 63 14 139/69 97 Room Air 12/20/22 01:00 73 19 165/77 H 100 Laboratory Results 12/20/22 00:20 12/20/22 04:17 PG Care Time/CCT Total # of Minutes Spent Total Time Spent with Patient: Total time spent is greater than 50% in coordination of care (as documented) at patient's floor/unit and/or counseling patient: Coding Level of Care Code 70814 SUB INP/OBS CARE 3/50MIN Diagnoses Hematuria R31.9 Ambulatory dysfunction R26.2 PAF (paroxysmal atrial fibrillation) I48.0 Hypertension I10 Diabetes mellitus, type 2 E11.9 Diabetes mellitus complication status: without complication Diabetes mellitus mcfp insulin use: without laborer marine terminal use (5) Diabetes mellitus, type 2 Diabetes mellitus complication status: without complication Diabetes mellitus laborer marine terminal insulin use: without mcfp use Qualified Code(s): E11.9 - Type 2 diabetes mellitus without complications
--- NOTE | 2022-12-20 14:55 | Billing Data ---
Date of Service December 20, 2022 Coding Level of Care Code 94100 INT INP/OBS CARE
--- NOTE | 2022-12-20 15:24 | Urology Consultation ---
Date of Consultation December 20, 2022 Assessment & Plan (1) Hematuria: (2) KENDRICK (acute kidney injury): (3) S/P ureteral stent placement: (4) Weakness: Plan 77yo/M with a history of bladder cancer status post TURBT x 2 and bilateral ureteral stents last exchanged 11/29/22 admitted with hematuria, KENDRICK, weakness. CT abdomen pelvis on arrival demonstrated interval placement of the Khan catheter with the balloon malpositioned within the prostatic urethra and bilateral ureteral stents in place with moderate bilateral hydronephrosis similar to prior. He is afebrile and hemodynamically stable. Labs show no leukocytosis, hemoglobin 10.6, creatinine 2.12 (2.40 on admission). Urinalysis with 2+ blood, 1+ LE, negative nitrite, negative bacteria. Urine culture pending. Not currently on antibiotics. Monitor for signs of infection. Follow culture. Hematuria likely due to catheter trauma as it was noted to be in the prostatic urethra at the time of his CT. The Khan catheter was exchanged by nursing staff with good urine return. Hematuria appears to have cleared as his catheter is currently draining clear yellow urine with some sediment in tubing. Can likely resume anticoagulation tomorrow if his urine remains clear. Recommend maintaining Khan catheter until outpatient follow-up on 01/02/[address] Krishnamurthy. KENDRICK likely due to retention. Creatinine downtrending from 2.402.12. (Creatinine was 1.95 on discharge 12/03/22). Continue to monitor. Continue supportive care. Urology will follow peripherally. Please contact us with any further questions, concerns, or change in patient status. History of Present Illness Attending Physician: Marija Goldsmith DO History of Present Illness 77-year-old male with PMHx of bladder cancer s/p TURBT x2, bilateral ureteral stents with recent exchange (11/29/22), anemia, recurrent UTI, BPH, colon polyps, CAD s/p stent, HTN, HLD, and afib who presented to the ED with low urine output in khan, constipation, and weakness. He was recently discharged from [facility] at the end of November for KENDRICK secondary to obstruction which was resolved with bilateral ureteral stent exchange on 11/29/[address] Krishnamurthy. He was discharged with a Khan catheter on 12/03/2022. Patient was seen in the urology office on 12/05/2022 and had a voiding trial which he passed initially, but required catheter replacement at [facility] due to retention issues. He completed his rehab stay at [facility] a few days ago and returned home. Yesterday he noticed that his Khan catheter was not draining as much and he had abdominal pain/distention and was brought to the emergency room. Patient's Khan catheter was not draining well and he was bladder scanned for greater than 400 mL. The Khan catheter was replaced by nursing staff with 600 mL of blood- tinged urine returned. CT abdomen pelvis 12/19/2022- 1. Interval placement of the Khan catheter. Balloon is malpositioned within the prostatic urethra. Recommend repositioning. 2. Bilateral double-J ureteral stents. Moderate bilateral hydronephrosis, similar to prior. Similar position on the right with the proximal end in the superior calyx. Change in position on the left of the proximal and now in the superior calyx. Gas bubble in the left renal collecting system and in the urinary bladder/bladder wall. May relate to recent instrumentation and/or infection. 3. Mild bladder wall thickening and surrounding stranding. Correlate for cystitis. Patient examined at bedside this afternoon. Awake, resting in bed on arrival. No acute distress. Khan catheter intact, draining clear yellow urine with sediment. He denies any pain or discomfort at present. Denies fevers, chills, nausea, vomiting. Allergies Allergy/AdvReac Type Severity Reaction Status Date / Time No Known Allergies Allergy Verified 12/20/22 00:46 Home Medications Medication Instructions Recorded Confirmed Type metformin 500 mg tablet,extended 500 mg PO BID #180 tabs 03/19/22 12/20/22 Rx release 24 hr metoprolol succinate 200 mg 200 mg PO BID #180 tabs 06/13/22 12/20/22 Rx tablet,extended release 24 hr atorvastatin 80 mg tablet 80 mg PO QAM #90 tabs 07/09/22 12/20/22 Rx amlodipine 10 mg tablet 10 mg PO QAM 09/14/22 12/20/22 History oxybutynin chloride 5 mg tablet 5 mg PO Q8H PRN bladder spasms #20 09/24/22 12/20/22 Rx tabs finasteride 5 mg tablet 5 mg PO DAILY #30 tabs 10/02/22 12/20/22 Rx calcium acetate(phosphat bind) 667 667 mg PO TIDM #1 cap 12/03/22 12/20/22 Rx mg capsule polyethylene glycol 3350 17 gram 17 g PO DAILY PRN constipation #14 12/03/22 12/20/22 Rx oral powder packet (Miralax) ea sulfamethoxazole 800 1 tab PO Q12 #0 tabs 12/03/22 12/13/22 Rx mg-trimethoprim 160 mg tablet (Bactrim DS) Bedside Commode #1 ea 12/19/22 Rx albuterol sulfate 90 mcg/actuation 2 puff inhalation Q6H PRN 12/20/22 12/20/22 History aerosol inhaler Shortness Of Breath Or Wheezing clopidogrel 75 mg tablet 75 mg PO QAM 12/20/22 12/20/22 History Patient History Medical History (Updated 12/20/22 @ 03:28 by Oumar Rivas DO) Abdominal pain Acute hyperkalemia Acute kidney injury Acute renal failure Acute urinary retention ARF (acute renal failure) Benign enlargement of prostate Bladder cancer newly diagnosed 08/2022. CAD (coronary artery disease) "Multi-Vessel CAD s/p Ostial and Proximal LAD NEVA x 2 and OM1 NEVA 07/01/2018 (with residual borderline D2 stenosis, OM2 stenosis, RCA/PDA stenoses which are felt amenable to complex PCI" follows with [facility] Chest tightness Dehydration Diabetes mellitus, type 2 NIDDM Dyslipidemia Elevated troponin Encounter for pre-operative examination Epigastric abdominal pain Fall Generalized weakness Hematuria History of colon polyps Hyperkalemia Hyperkalemia, diminished renal excretion Hypertension Hyponatremia Joint pain, knee Leukocytosis Low back pain Microscopic hematuria Multi-vessel coronary artery stenosis Myocardial Infarction ~3 years ago. follows with Erik Beltran. Palpitations Tubular adenoma of colon Urinary tract infection Weakness Surgical History H/O colonoscopy 08/2016, repeat 5 yrs History of cardiac cath ~3 years ago, "failed stress test, needed cath", [facility] History of open reduction and internal fixation (ORIF) procedure Lt. Femur Stented coronary artery ~3 years ago, [facility], following cath at [facility], x1 stent (resolut summer) placed; now f/u Luis Manuel Beltran PA-C, [facility] Cardio. Family History Father Non-Hodgkin's lymphoma Mother Multiple myeloma Sister Dyslipidemia Heart disease Hypertension Uncle Myocardial infarction Other No family history of adverse response to anesthesia Denies family history of Ovarian cancer Prostate cancer Breast cancer Colorectal cancer Social History Smoking Status: Former smoker Second Hand Exposure: No; Do You Dip or Chew Tobacco: No; Hx Alcohol Use: No Hx Substance Use: No Preferred Language: Telugu Communication Ability: Effective Visual Impairment: Limited Hearing Ability: Normal Reed Press Feeder Required: No Beliefs That Will Affect Care: None marital status: Single Current Living Situation: Alone current occupational status: retired How many Children do You have: 0 Feels Safe at Home: Yes Safety Concerns: Feels Safe At This Time Childhood Exposure to Second-Hand Smoke: Yes caffeine: Yes Dental Care, Regularly: Yes Physical Activity Frequency: Daily Seatbelt Use: always Sunscreen Use: Yes Assistive Devices: Walker Assistive Devices Comment: Wallet Review of Systems Review of Systems: All systems reviewed & are unremarkable except as noted in HPI & below Physical Exam Constitutional: no acute distress Neck: normal visual inspection Respiratory: no respiratory distress and no labored breathing Gastrointestinal (Abdomen): Percussion/Palpation: abdomen soft; abdomen nontender Musculoskeletal: Head/Neck/Chest: normocephalic Skin: No visible rashes or lesions to exposed skin areas Neurologic: moves all extremities and awake Psychiatric: A+Ox3, euthymic affect Genitourinary: Khan intact, urine is clear yellow with sediment Results & Data Vital Signs (Past 12 Hours) Vital Signs Temp Pulse Pulse Resp BP BP Pulse Ox 12/20/22 13:55 36.4 C L 53 L 16 116/62 96 12/20/22 13:55 12/20/22 13:01 55 L 20 95 12/20/22 13:00 56 L 23 96 12/20/22 13:00 118/57 L 12/20/22 12:00 56 L 26 H 12/20/22 12:00 128/66 12/20/22 11:00 59 L 21 12/20/22 11:00 137/64 12/20/22 10:00 126/65 12/20/22 10:00 63 20 12/20/22 09:01 105/85 12/20/22 09:01 61 21 12/20/22 08:00 63 19 12/20/22 08:00 140/69 12/20/22 07:59 62 19 12/20/22 07:00 127/67 12/20/22 07:00 60 14 12/20/22 07:01 62 12/20/22 06:00 59 L 14 127/71 97 12/20/22 05:30 61 16 99 12/20/22 05:00 60 15 133/69 99 12/20/22 04:30 61 13 99 12/20/22 04:00 62 15 135/83 98 12/20/22 03:30 69 18 147/90 H 98 12/20/22 03:20 74 20 12/20/22 03:10 64 16 99 12/20/22 03:00 67 18 98 12/20/22 03:22 12/20/22 03:20 Pulse Ox O2 Del Method O2 Del Method 12/20/22 13:55 Room Air 12/20/22 13:55 Room Air 12/20/22 13:01 12/20/22 13:00 12/20/22 13:00 12/20/22 12:00 12/20/22 12:00 12/20/22 11:00 12/20/22 11:00 12/20/22 10:00 12/20/22 10:00 12/20/22 09:01 12/20/22 09:01 12/20/22 08:00 12/20/22 08:00 12/20/22 07:59 12/20/22 07:00 12/20/22 07:00 12/20/22 07:01 12/20/22 06:00 Room Air 12/20/22 05:30 12/20/22 05:00 12/20/22 04:30 12/20/22 04:00 Room Air 12/20/22 03:30 Room Air 12/20/22 03:20 12/20/22 03:10 12/20/22 03:00 12/20/22 03:22 95 Room Air 12/20/22 03:20 Room Air PG Care Time/CCT Total # of Minutes Spent Total Time Spent with Patient: Total time spent is greater than 50% in coordination of care (as documented) at patient's floor/unit and/or counseling patient: Coding Level of Care Code 93968 INT INP/OBS CARE MIN Diagnoses Hematuria R31.9 KENDRICK (acute kidney injury) N17.9 S/P ureteral stent placement Z96.0 Weakness R53.1
[2022-12-21 07:54] LABS: Hematocrit (blood only) 29.4 % (42.0-52.0); Hemoglobin 9.3 g/dl (14.0-18.0); Mean Corpuscular Hemoglobin 27.3 pg (25.0-34.0); Mean Corpuscular Hgb Conc 31.6 g/dL (32.0-36.0); Mean Corpuscular Volume 86.2 fL (80.0-100.0); Platelet Count 212 K/uL (130-400); RDW Coefficient of Variation 18.6 % (11.5-14.5); RDW Standard Deviation 58.8 fL (36.4-46.3); Red Blood Count 3.41 M/uL (4.70-6.10)
[2022-12-21 08:10] LABS: BUN Creatinine Ratio 14.5 (10-20); Calcium 8.3 mg/dl (8.6-10.3); Creatinine Clr Calc Pharmacy 34.5 ml/min; Est GFR (African American) 43.8 ml/min; Est GFR (Non-African American) 37.8 ml/min; Potassium 4.8 mmol/L (3.5-5.1)
[2022-12-21] MEDS: INSULIN ASPART PER UNIT CHARGE SC SCH ×4 (09:03→21:09)
[2022-12-21] MEDS: SODIUM CHLORIDE 0.9% 1000ML 1,000 ML IV SCH ×2 (09:04→10:15)
[2022-12-21 09:14] LABS: Acanthocytes 1+; Basophils # (auto) 0.02 K/uL (0-0.2); Basophils % (auto) 0.4 %; Eosinophils # (auto) 0.14 K/uL (0-0.50); Eosinophils % (auto) 2.9 %; Lymphocytes # (auto) 2.46 K/uL (1.2-3.4); Lymphocytes % (auto) 50.2 %; Monocytes # (auto) 0.33 K/uL (0.11-0.59); Monocytes % (auto) 6.7 %; Neutrophils # (auto) 1.95 K/uL (1.40-6.50); Neutrophils % (auto) 39.8 %; Polychromasia 2+
[2022-12-21] MEDS ORDERED: IRON SUCROSE 200 MG in 0.9 % SODIUM CHLORIDE 100 ML IV ONE (09:30)
[2022-12-21] MEDS: METOPROLOL SUCC 50MG EXT REL TAB PO SCH ×2 (10:17→21:12)
[2022-12-21] MEDS: amLODIPine BESYLATE 5 MG TAB PO SCH (10:18)
[2022-12-21] MEDS: ATORVASTATIN 40 MG TAB PO SCH (10:18)
[2022-12-21] MEDS: FINASTERIDE 5 MG TAB PO SCH (10:18)
[2022-12-21] MEDS: POLYETHYLENE (MIRALAX) 17 GM PACK PO SCH ×2 (10:19→19:37)
--- NOTE | 2022-12-21 14:34 | Hospitalist Progress Note ---
Date of Service December 21, 2022 Assessment & Plan (1) Hematuria: Plan: Eliquis has been discontinued permanently. Urology consultation appreciated. Kennedy catheter has been changed. Hematuria has resolved. Creatinine has improved to 1.7 (2) Ambulatory dysfunction: Plan: Continue OT and PT. He will need SNF placement at discharge (3) KENDRICK (acute kidney injury): Plan: Improving. Monitor intake and output. Serial labs (4) PAF (paroxysmal atrial fibrillation): Plan: Currently normal sinus rhythm. Continue metoprolol along with other medications. Eliquis has been discontinued permanently (5) Hypertension: Plan: Stable. Continue metoprolol therapy (6) Diabetes mellitus, type 2: Plan: ADA diet. Sliding scale coverage. Continue current medical management Plan Anticipate eventual discharge to SNF facility when arrangements are finalized. This was recommended at the previous hospital stay but he refused Admission and Anticipated Discharge Date Admission Date: December 20, 2022 Subjective Alert and oriented. No distress. Urology consultation appreciated. Kennedy catheter has been changed. Eliquis has been discontinued permanently. Hem aturia has resolved. Continue parenteral iron replacement for 3 days then oral iron thereafter. Oral intake is adequate. IV fluids discontinued. Creatinine has improved to 1.7. Review of Systems Review of Systems: Constitutional-no fever or chills ENT-no blurred vision, no double vision, no epistaxis, no sore throat Respiratory-no cough, no wheezing, no shortness of breath Cardiac-no palpitations, no chest pain, no syncope GI-no nausea, vomiting, diarrhea, melena, hematochezia -Kennedy catheter in place with no gross hematuria Musculoskeletal-no joint pain, no muscle tenderness Skin-no bruising, no rashes, no pruritus Neuro-generalized weakness. Unable to ambulate. No focal deficits Psych-no depression, no anxiety Physical Exam Physical Exam: General-alert and oriented x3, no fevers, no chills HEENT-head atraumatic and normocephalic, pupils equal and reactive to light, extraocular muscles intact Neck-no lymphadenopathy or thyromegaly, trachea midline Chest-clear to auscultation percussion. No rales wheezing or rhonchi Cardiac-regular rate and rhythm, normal S1 and S2 Abdomen-normal bowel sounds, nontender, no hepatosplenomegaly GUFoley catheter in place with no gross hematuria Extremities-no cyanosis, clubbing, or edema Neuro-cranial nerves II through XII intact, motor and sensory function within normal limits, generalized weakness however, no focal deficits Psych-normal affect, normal mood Results & Data Results & Data Vital Signs (Past 12 Hours) Vital Signs Temp Pulse Pulse Resp BP Pulse Ox O2 Del Method 12/21/22 10:42 36.7 C 59 L 16 115/41 L 96 Room Air 12/21/22 07:54 36.6 C 75 16 147/62 H 97 Room Air 12/21/22 06:00 50 L 12/21/22 07:13 Room Air 12/21/22 03:27 36.7 C 51 L 16 133/64 98 Room Air Laboratory Results 12/21/22 07:15 12/21/22 07:15 PG Care Time/CCT Total # of Minutes Spent Total Time Spent with Patient: Total time spent is greater than 50% in coordination of care (as documented) at patient's floor/unit and/or counseling patient: Coding Level of Care Code 22333 SUB INP/OBS CARE 3/50MIN Diagnoses Hematuria R31.9 Ambulatory dysfunction R26.2 KENDRICK (acute kidney injury) N17.9 PAF (paroxysmal atrial fibrillation) I48.0 Hypertension I10 Diabetes mellitus, type 2 E11.9 Diabetes mellitus complication status: without complication Diabetes mellitus salvage determiner insulin use: without salvage determiner use (6) Diabetes mellitus, type 2 Diabetes mellitus complication status: without complication Diabetes mellitus long-term insulin use: without long-term use Qualified Code(s): E11.9 - Type 2 diabetes mellitus without complications
[2022-12-22 07:33] LABS: Hematocrit (blood only) 29.4 % (42.0-52.0); Hemoglobin 9.3 g/dl (14.0-18.0); Mean Corpuscular Hemoglobin 27.4 pg (25.0-34.0); Mean Corpuscular Hgb Conc 31.6 g/dL (32.0-36.0); Mean Corpuscular Volume 86.7 fL (80.0-100.0); Mean Platelet Volume 9.9 fL (9.4-12.4); Platelet Count 195 K/uL (130-400); RDW Coefficient of Variation 18.9 % (11.5-14.5); RDW Standard Deviation 59.7 fL (36.4-46.3); Red Blood Count 3.39 M/uL (4.70-6.10); White Blood Count 4.89 K/ul (4.8-10.8)
[2022-12-22 07:45] LABS: BUN Creatinine Ratio 16.9 (10-20); Calcium 8.2 mg/dl (8.6-10.3); Est GFR (African American) 55.6 ml/min; Potassium 4.6 mmol/L (3.5-5.1)
[2022-12-22 07:59] LABS: Acanthocytes 1+; Basophils # (auto) 0.03 K/uL (0-0.2); Basophils % (auto) 0.6 %; Eosinophils # (auto) 0.11 K/uL (0-0.50); Eosinophils % (auto) 2.2 %; Immature Granulocytes # (auto) 0.01 K/uL (0.01-0.20); Immature Granulocytes % (auto) 0.2 %; Lymphocytes # (auto) 2.67 K/uL (1.2-3.4); Lymphocytes % (auto) 54.6 %; Monocytes # (auto) 0.27 K/uL (0.11-0.59); Monocytes % (auto) 5.5 %; Neutrophils % (auto) 36.9 %; Ovalocytes 1+; Polychromasia 1+
[2022-12-22] MEDS: INSULIN ASPART PER UNIT CHARGE SC SCH ×4 (08:59→20:27)
[2022-12-22] MEDS: amLODIPine BESYLATE 5 MG TAB PO SCH (09:00)
[2022-12-22] MEDS: ATORVASTATIN 40 MG TAB PO SCH (09:00)
[2022-12-22] MEDS: FINASTERIDE 5 MG TAB PO SCH (09:01)
[2022-12-22] MEDS: POLYETHYLENE (MIRALAX) 17 GM PACK PO SCH ×2 (09:04→20:28)
[2022-12-22] MEDS: METOPROLOL SUCC 50MG EXT REL TAB PO SCH ×2 (09:04→20:28)
[2022-12-22] MEDS ORDERED: IRON SUCROSE 200 MG in 0.9 % SODIUM CHLORIDE 100 ML IV ONE (10:45)
--- NOTE | 2022-12-22 14:07 | Hospitalist Progress Note ---
Date of Service December 22, 2022 Assessment & Plan (1) Hematuria: Plan: Eliquis has been discontinued permanently. Urology consultation appreciated. Kennedy catheter has been changed. Hematuria has resolved. Creatinine has improved to 1.4 (2) Ambulatory dysfunction: Plan: Continue OT and PT. He will need SNF placement at discharge (3) KENDRICK (acute kidney injury): Plan: Improving. Monitor intake and output. Serial labs (4) PAF (paroxysmal atrial fibrillation): Plan: Currently normal sinus rhythm. Continue metoprolol along with other medications. Eliquis has been discontinued permanently (5) Hypertension: Plan: Stable. Continue metoprolol therapy (6) Diabetes mellitus, type 2: Plan: ADA diet. Sliding scale coverage. Continue current medical management Plan Anticipate eventual discharge to SNF facility when arrangements are finalized. This was recommended at the previous hospital stay but he refused Admission and Anticipated Discharge Date Admission Date: December 20, 2022 Subjective Alert and oriented. No new problems. He is receiving his third parenteral dose of iron today, December 22. We will start ferrous sulfate tomorrow. Gross hematuria has resolved. Hemoglobin is stable Review of Systems Review of Systems: Constitutional-no fever or chills ENT-no blurred vision, no double vision, no epistaxis, no sore throat Respiratory-no cough, no wheezing, no shortness of breath Cardiac-no palpitations, no chest pain, no syncope GI-no nausea, vomiting, diarrhea, melena, hematochezia -Kennedy catheter in place with no gross hematuria Musculoskeletal-no joint pain, no muscle tenderness Skin-no bruising, no rashes, no pruritus Neuro-generalized weakness. Unable to ambulate. No focal deficits Psych-no depression, no anxiety Physical Exam Physical Exam: General-alert and oriented x3, no fevers, no chills HEENT-head atraumatic and normocephalic, pupils equal and reactive to light, extraocular muscles intact Neck-no lymphadenopathy or thyromegaly, trachea midline Chest-clear to auscultation percussion. No rales wheezing or rhonchi Cardiac-regular rate and rhythm, normal S1 and S2 Abdomen-normal bowel sounds, nontender, no hepatosplenomegaly GUFoley catheter in place with no gross hematuria Extremities-no cyanosis, clubbing, or edema Neuro-cranial nerves II through XII intact, motor and sensory function within normal limits, generalized weakness however, no focal deficits Psych-normal affect, normal mood Results & Data Results & Data Vital Signs (Past 12 Hours) Vital Signs Temp Pulse Pulse Resp BP BP Pulse Ox 12/22/22 11:36 36.6 C 50 L 19 117/63 96 12/22/22 08:00 12/22/22 07:35 36.6 C 46 L 18 125/63 97 12/22/22 07:24 45 L 12/22/22 03:00 36.4 C L 45 L 16 125/69 95 O2 Del Method 12/22/22 11:36 Room Air 12/22/22 08:00 Room Air 12/22/22 07:35 Room Air 12/22/22 07:24 12/22/22 03:00 Room Air Laboratory Results 12/22/22 07:03 12/22/22 07:03 PG Care Time/CCT Total # of Minutes Spent Total Time Spent with Patient: Total time spent is greater than 50% in coordination of care (as documented) at patient's floor/unit and/or counseling patient: Coding Level of Care Code 38150 SUB INP/OBS CARE 2/35MIN Diagnoses Hematuria R31.9 Ambulatory dysfunction R26.2 KENDRICK (acute kidney injury) N17.9 PAF (paroxysmal atrial fibrillation) I48.0 Hypertension I10 Diabetes mellitus, type 2 E11.9 Diabetes mellitus complication status: without complication Diabetes mellitus snf insulin use: without snf use (6) Diabetes mellitus, type 2 Diabetes mellitus complication status: without complication Diabetes mellitus snf insulin use: without watermaster use Qualified Code(s): E11.9 - Type 2 diabetes mellitus without complications
[2022-12-23] MEDS: INSULIN ASPART PER UNIT CHARGE SC SCH ×4 (08:23→20:02)
[2022-12-23] MEDS: amLODIPine BESYLATE 5 MG TAB PO SCH (08:23)
[2022-12-23] MEDS: FINASTERIDE 5 MG TAB PO SCH (08:24)
[2022-12-23] MEDS: ATORVASTATIN 40 MG TAB PO SCH (08:24)
[2022-12-23] MEDS: METOPROLOL SUCC 50MG EXT REL TAB PO SCH ×2 (08:26→20:03)
[2022-12-23] MEDS: POLYETHYLENE (MIRALAX) 17 GM PACK PO SCH ×2 (08:29→20:06)
[2022-12-23 10:18] LABS: Basophils # (auto) 0.02 K/uL (0-0.2); Basophils % (auto) 0.4 %; Eosinophils # (auto) 0.08 K/uL (0-0.50); Eosinophils % (auto) 1.7 %; Hematocrit (blood only) 28.7 % (42.0-52.0); Hemoglobin 9.2 g/dl (14.0-18.0); Immature Granulocytes # (auto) 0.01 K/uL (0.01-0.20); Immature Granulocytes % (auto) 0.2 %; Lymphocytes # (auto) 2.13 K/uL (1.2-3.4); Lymphocytes % (auto) 45.7 %; Mean Corpuscular Hemoglobin 27.6 pg (25.0-34.0); Mean Corpuscular Hgb Conc 32.1 g/dL (32.0-36.0); Mean Corpuscular Volume 86.2 fL (80.0-100.0); Mean Platelet Volume 9.8 fL (9.4-12.4); Monocytes # (auto) 0.24 K/uL (0.11-0.59); Monocytes % (auto) 5.2 %; Neutrophils # (auto) 2.18 K/uL (1.40-6.50); Neutrophils % (auto) 46.8 %; Platelet Count 185 K/uL (130-400); RDW Standard Deviation 59.4 fL (36.4-46.3); Red Blood Count 3.33 M/uL (4.70-6.10); White Blood Count 4.66 K/ul (4.8-10.8)
[2022-12-23 10:38] LABS: BUN Creatinine Ratio 18.7 (10-20); Calcium 8.3 mg/dl (8.6-10.3); Creatinine Clr Calc Pharmacy 36.4 ml/min; Est GFR (Non-African American) 43.2 ml/min; Potassium 4.1 mmol/L (3.5-5.1)
[2022-12-23] MEDS: DOCUSATE SODIUM 100 MG CAP PO SCH ×2 (14:00→20:04)
--- NOTE | 2022-12-23 14:47 | Hospitalist Progress Note ---
Date of Service December 23, 2022 Assessment & Plan (1) Hematuria: Plan: Eliquis has been discontinued permanently. Urology consultation appreciated. Kennedy catheter has been changed. Hematuria has resolved. Creatinine has improved since admission (2) Ambulatory dysfunction: Plan: Continue OT and PT. He will need SNF placement at discharge. He does not want to go to [facility] (3) KENDRICK (acute kidney injury): Plan: Improving. Monitor intake and output. Serial labs (4) PAF (paroxysmal atrial fibrillation): Plan: Currently normal sinus rhythm. Continue metoprolol along with other medications. Eliquis has been discontinued permanently (5) Hypertension: Plan: Stable. Continue metoprolol therapy (6) Diabetes mellitus, type 2: Plan: ADA diet. Sliding scale coverage. Continue current medical management Plan Anticipate eventual discharge to SNF facility when arrangements are finalized. This was recommended at the previous hospital stay but he refused Admission and Anticipated Discharge Date Admission Date: December 20, 2022 Subjective Alert and oriented. Constipation seems to be his biggest complaint. He does not want to go to [facility]. I told him to tell case management this so they can pursue other. He is now on MiraLAX and Colace scheduled dosing. Oral iron supplementation will continue indefinitely. Hemoglobin is stable. Urine in Kennedy catheter bag is negative for hematuria. Review of Systems Review of Systems: Constitutional-no fever or chills ENT-no blurred vision, no double vision, no epistaxis, no sore throat Respiratory-no cough, no wheezing, no shortness of breath Cardiac-no palpitations, no chest pain, no syncope GI-no nausea, vomiting, diarrhea, melena, hematochezia -Kennedy catheter in place with no gross hematuria Musculoskeletal-no joint pain, no muscle tenderness Skin-no bruising, no rashes, no pruritus Neuro-generalized weakness. Unable to ambulate. No focal deficits Psych-no depression, no anxiety Physical Exam Physical Exam: General-alert and oriented x3, no fevers, no chills HEENT-head atraumatic and normocephalic, pupils equal and reactive to light, extraocular muscles intact Neck-no lymphadenopathy or thyromegaly, trachea midline Chest-clear to auscultation percussion. No rales wheezing or rhonchi Cardiac-regular rate and rhythm, normal S1 and S2 Abdomen-normal bowel sounds, nontender, no hepatosplenomegaly GUFoley catheter in place with no gross hematuria Extremities-no cyanosis, clubbing, or edema Neuro-cranial nerves II through XII intact, motor and sensory function within normal limits, generalized weakness however, no focal deficits Psych-normal affect, normal mood Results & Data Results & Data Vital Signs (Past 12 Hours) Vital Signs Temp Pulse Pulse Resp BP Pulse Ox O2 Del Method 12/23/22 14:21 36.6 C 55 L 18 117/63 98 Room Air 12/23/22 11:33 37.1 C 76 20 148/93 H 96 Room Air 12/23/22 08:06 52 L 12/23/22 07:25 36.8 C 54 L 18 135/54 L 97 Room Air 12/23/22 03:00 36.7 C 49 L 18 143/56 H 96 Room Air Laboratory Results 12/23/22 09:53 12/23/22 09:53 PG Care Time/CCT Total # of Minutes Spent Total Time Spent with Patient: Total time spent is greater than 50% in coordination of care (as documented) at patient's floor/unit and/or counseling patient: Coding Level of Care Code 98742 SUB INP/OBS CARE 3/50MIN Diagnoses Hematuria R31.9 Ambulatory dysfunction R26.2 KENDRICK (acute kidney injury) N17.9 PAF (paroxysmal atrial fibrillation) I48.0 Hypertension I10 Diabetes mellitus, type 2 E11.9 Diabetes mellitus complication status: without complication Diabetes mellitus mcc insulin use: without rat exterminator use (6) Diabetes mellitus, type 2 Diabetes mellitus complication status: without complication Diabetes mellitus rat exterminator insulin use: without rat exterminator use Qualified Code(s): E11.9 - Type 2 diabetes mellitus without complications
[2022-12-23] MEDS: FERROUS SULFATE 325 MG TAB PO SCH (18:58)
[2022-12-24] MEDS: METOPROLOL SUCC 50MG EXT REL TAB PO SCH (08:07)
[2022-12-24] MEDS: FERROUS SULFATE 325 MG TAB PO SCH ×2 (08:08→17:11)
[2022-12-24] MEDS: amLODIPine BESYLATE 5 MG TAB PO SCH (08:08)
[2022-12-24] MEDS: ATORVASTATIN 40 MG TAB PO SCH (08:08)
[2022-12-24] MEDS: DOCUSATE SODIUM 100 MG CAP PO SCH ×2 (08:08→21:32)
[2022-12-24] MEDS: FINASTERIDE 5 MG TAB PO SCH (08:08)
[2022-12-24] MEDS: POLYETHYLENE (MIRALAX) 17 GM PACK PO SCH ×2 (08:12→21:32)
[2022-12-24] MEDS: INSULIN ASPART PER UNIT CHARGE SC SCH ×4 (08:31→21:22)
[2022-12-24 09:33] LABS: Hematocrit (blood only) 28.8 % (42.0-52.0); Hemoglobin 9.3 g/dl (14.0-18.0)
[2022-12-24 09:49] LABS: Calcium 8.3 mg/dl (8.6-10.3); Creatinine Clr Calc Pharmacy 37.5 ml/min; Est GFR (African American) 50.8 ml/min; Est GFR (Non-African American) 43.8 ml/min; Magnesium 1.6 mg/dl (1.7-2.4); Potassium 4.4 mmol/L (3.5-5.1)
[2022-12-24 10:15] LABS: Folate (Folic Acid),Ser orPlas 3.44 ng/ml (>5.38)
[2022-12-24] MEDS: MAGNESIUM SULFATE / D5W 1 GM/100 ML BAG IV ONE ×2 (10:40→11:18)
[2022-12-24] MEDS ORDERED: CLOPIDOGREL BISULFATE 75 MG TAB PO ONE (10:45)
[2022-12-24] MEDS: FOLIC ACID 1 MG TAB PO SCH (11:12)
[2022-12-24] MEDS: CYANOCOBALAMIN (B-12) 500 MCG TABLET PO SCH (11:12)
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
--- NOTE | 2022-12-24 15:08 | XRay Report ---
XR knee LT 1 or 2V routine HISTORY: 77 years-old Male Left knee buckling, ?OA chronic left knee pain COMPARISON: None TECHNIQUE: 2 views of the left knee FINDINGS: Arterial calcifications. Limited lateral view secondary to positioning. Moderate tricompartmental ost eoarthritis. No acute fracture or dislocation. Trace joint effusion. IMPRESSION: 1. Limited exam secondary to positioning. 2. No acute fracture or dislocation. 3. Moderate osteoarthritis. ACT 112: Negative or not required by law. The above report was generated using voice recognition software. It may contain grammatical, syntax o r spelling errors. Electronically signed by: Koko Magaña M.D. 12/24/2022 3:07 PM
--- NOTE | 2022-12-24 15:18 | XRay Report ---
XR hip LT 2V w pelvis CLINICAL HISTORY: L hip pain/decreased ROM, remote h/o prox femur Fx TECHNIQUE: 2 views of the left hip and single frontal view of the pelvis were obtained. Comparison: Comparison is made to CT abdomen pelvis 820 FINDINGS: Bilateral double-J stents are seen. Degenerative changes are seen in the hip joint. Vascular calcific ations are noted. IMPRESSION: Degenerative changes without evidence of acute abnormality. ACT 112: Negative or not required by law. Electronically signed by: Sathya Goldman M.D. 12/24/2022 3:17 PM
[2022-12-24] MEDS: DICLOFENAC SOD 1% GEL 100 GM TUBE EXT SCH (21:32)
[2022-12-25 07:13] LABS: BUN Creatinine Ratio 22.4 (10-20); Calcium 8.1 mg/dl (8.6-10.3); Creatinine Clr Calc Pharmacy 40.1 ml/min; Est GFR (African American) 55.1 ml/min; Est GFR (Non-African American) 47.6 ml/min; Magnesium 1.8 mg/dl (1.7-2.4); Potassium 4.2 mmol/L (3.5-5.1)
[2022-12-25] MEDS: INSULIN ASPART PER UNIT CHARGE SC SCH ×4 (09:35→21:11)
[2022-12-25] MEDS: FINASTERIDE 5 MG TAB PO SCH (09:37)
[2022-12-25] MEDS: ATORVASTATIN 40 MG TAB PO SCH (09:37)
[2022-12-25] MEDS: DOCUSATE SODIUM 100 MG CAP PO SCH ×2 (09:37→21:08)
[2022-12-25] MEDS: FOLIC ACID 1 MG TAB PO SCH (09:37)
[2022-12-25] MEDS: FERROUS SULFATE 325 MG TAB PO SCH ×2 (09:37→18:12)
[2022-12-25] MEDS: CLOPIDOGREL BISULFATE 75 MG TAB PO SCH (09:37)
[2022-12-25] MEDS: DICLOFENAC SOD 1% GEL 100 GM TUBE EXT SCH ×4 (09:37→21:08)
[2022-12-25] MEDS: CYANOCOBALAMIN (B-12) 500 MCG TABLET PO SCH (09:37)
[2022-12-25] MEDS: POLYETHYLENE (MIRALAX) 17 GM PACK PO SCH ×2 (09:40→21:08)
[2022-12-25] MEDS: amLODIPine BESYLATE 5 MG TAB PO SCH (10:53)
--- NOTE | 2022-12-25 19:36 | Hospitalist Progress Note ---
Date of Service December 25, 2022 Assessment & Plan (1) Hematuria: Plan: 2nd malpositioned khan catheter at time of admission. hematuria resolved once khan was replaced. appreciate urology consultation. H/H stable; urine is clear. resumed plavix. will resume eliquis tonight. follow urine. (2) Ambulatory dysfunction: Plan: Continue OT and PT. He will need SNF placement at discharge. He has muscle wasting of both thighs - 2nd to lumbar spinal stenosis or other peripheral neuropathy condition? He denies any back pain, however. Has numbness intermittently in right leg but not the left. Consider l-spine MRI. In addition, he has OA of both the left hip and left knee contributing to his walking issues. (3) KENDRICK (acute kidney injury): Plan: obstructive resolving Peak Cr 2.4 Today Cr 1.4 BMP in 2-3 days for stability (4) PAF (paroxysmal atrial fibrillation): Plan: Experienced rapid a.fib in 10/2022. did not tolerate the a.fib that well. was placed on amiodarone at that time. was taking such up until this admission. he is also on a very high dose of metoprolol succinate twice daily. both meds are on hold due to bradycardia. Eliquis - resume tonight. cont tele. (5) Hypertension: Plan: Controlled (6) Diabetes mellitus, type 2: Plan: hba1c 6% in October 2022 needing seldom novolog can d/c BSGs and novolog just cont dietary control (7) Folate deficiency: Plan: start folic acid 1mg daily x 30 days start B12 supplementation 1000mcg daily (8) Hypomagnesemia: Plan: replaced resolved (9) CAD (coronary artery disease): Plan: no ischemic symptoms at this time dose of metoprolol succ will need adjustment due to sinus rosalina cont plavix cont lipitor (10) S/P ureteral stent placement: Plan: b/l stents originally placed 08/2022 exchanged 09/2022 exchanged again 11/2022 (11) Arthritis of knee, left: Plan: moderate-severe voltaren gel 4gm QID certainly can contribute to falls, etc (12) History of femur fracture: Plan: left checked x-rays for OA - moderate OA noted Plan dispo- SNF for rehab Admission and Anticipated Discharge Date Admission Date: December 20, 2022 Subjective no acute issues overnight feels well eating great urine in khan clear - no hematuria tele - stable, no PAF using voltaren gel on left knee - denies pain, however still having issues with left leg being "weak" but he walked 180 feet today with PT and according to note his gait pattern was reciprocal with no focal deficits noted by PT Review of Systems Review of Systems: cv - no orthopnea or chest pain pulm - no dyspnea GI - no nausea/emesis/diarrhea; moving bowels Physical Exam Physical Exam: gen - NAD, looks good mouth - MMM neck - no JVD heart - rosalina, s1 s2, no murmur lungs - CTA b/l abd - soft NT ND BS+ musculo - b/l thigh muscle wasting unchanged, L>R ext - no edema, pulses 2+ b/l - urine in khan clear Results & Data Results & Data Vital Signs (Past 12 Hours) Vital Signs Temp Pulse Pulse Resp BP Pulse Ox O2 Del Method 12/25/22 16:11 61 12/25/22 15:28 36.8 C 59 L 16 127/63 98 Room Air 12/25/22 09:40 Room Air 12/25/22 12:48 36.6 C 58 L 16 122/53 L 97 Room Air 12/25/22 08:02 36.9 C 52 L 16 121/63 98 Room Air Laboratory Results Laboratory Results - last 24 hr 12/24/22 12/25/22 12/25/22 21:06 06:31 08:24 Sodium 139 Potassium 4.2 Chloride 112 H Carbon Dioxide 24 Anion Gap 3 BUN 32 H Creatinine 1.43 H Est Cr Clr Drug Dosing 40.1 Est GFR ( Amer) 55.1 Est GFR (Non-Af Amer) 47.6 BUN/Creatinine Ratio 22.4 H Glucose 86 POC Glucose 133 H 96 Calcium 8.1 L Magnesium 1.8 12/25/22 12/25/22 12:29 17:31 Sodium Potassium Chloride Carbon Dioxide Anion Gap BUN Creatinine Est Cr Clr Drug Dosing Est GFR ( Amer) Est GFR (Non-Af Amer) BUN/Creatinine Ratio Glucose POC Glucose 94 97 Calcium Magnesium PG Care Time/CCT Total # of Minutes Spent Total Time Spent with Patient: Total time spent is greater than 50% in coordination of care (as documented) at patient's floor/unit and/or counseling patient: Coding Level of Care Code 44373 SUB INP/OBS CARE 35MIN Diagnoses Hematuria R31.9 Ambulatory dysfunction R26.2 KENDRICK (acute kidney injury) N17.9 PAF (paroxysmal atrial fibrillation) I48.0 Hypertension I10 Diabetes mellitus, type 2 E11.9 Diabetes mellitus complication status: without complication Diabetes mellitus manager terminal insulin use: without manager terminal use Folate deficiency E53.8 Hypomagnesemia E83.42 CAD (coronary artery disease) I25.10 S/P ureteral stent placement Z96.0 Arthritis of knee, left M17.12 History of femur fracture Z87.81 (6) Diabetes mellitus, type 2 Diabetes mellitus complication status: without complication Diabetes mellitus manager terminal insulin use: without retirement use Qualified Code(s): E11.9 - Type 2 diabetes mellitus without complications
[2022-12-25] MEDS: APIXABAN 5 MG TABLET PO SCH (21:10)
[2022-12-26] MEDS: FERROUS SULFATE 325 MG TAB PO SCH (07:49)
[2022-12-26] MEDS: amLODIPine BESYLATE 5 MG TAB PO SCH (07:49)
[2022-12-26] MEDS: APIXABAN 5 MG TABLET PO SCH (07:49)
[2022-12-26] MEDS: CLOPIDOGREL BISULFATE 75 MG TAB PO SCH (07:49)
[2022-12-26] MEDS: ATORVASTATIN 40 MG TAB PO SCH (07:49)
[2022-12-26] MEDS: FINASTERIDE 5 MG TAB PO SCH (07:50)
[2022-12-26] MEDS: FOLIC ACID 1 MG TAB PO SCH (07:50)
[2022-12-26] MEDS: DOCUSATE SODIUM 100 MG CAP PO SCH (07:50)
[2022-12-26] MEDS: DICLOFENAC SOD 1% GEL 100 GM TUBE EXT SCH ×2 (07:50→12:34)
[2022-12-26] MEDS: POLYETHYLENE (MIRALAX) 17 GM PACK PO SCH (08:06)
[2022-12-26] MEDS: INSULIN ASPART PER UNIT CHARGE SC SCH (11:47)
[2022-12-26] MEDS: CYANOCOBALAMIN (B-12) 500 MCG TABLET PO SCH (12:32)
--- NOTE | 2022-12-26 15:04 | Discharge Summary ---
Date of Service December 26, 2022 Admission HPI Per Admitting Provider 77 yo male with PMHx of bladder cance s/p TURBT x2, bilateral ureteral stents with recent exchange (11/29/22), anemia, recurrent UTI, BPH, colon polyps, CAD s/p stent, HTN, HLD, and afib presents with low urine output, constipation, and weakness. He was recently discharged from [facility] at the end of November for KENDRICK 2/2 obstruction which was resolved with bilateral ureteral stent exchange. He was with khan catheter in place and failed outpatient void trial so has had his khan in since. He just completed rehab at [facility] a few days back but states he has still felt weak in his legs since. Earlier yesterday he also noticed his khan was not draining much and he had abdominal distention. Prior to admission, he had not had a BM for the past 3 days. Denies fever, headache, sob, chest pain, abd pain, N/V/D, dysuria, back pain. Discharge Exam gen - NAD, looks good mouth - MMM neck - no JVD heart - rosalina, s1 s2, no murmur lungs - CTA b/l abd - soft NT ND BS+ musculo - b/l thigh muscle wasting unchanged, L>R ext - no edema, pulses 2+ b/l - urine in khan clear Discharge Data Allergies Allergy/AdvReac Type Severity Reaction Status Date / Time No Known Allergies Allergy Verified 12/20/22 00:46 Consultations 12/20/22 01:25 ED Decision to Admit Stat 12/20/22 07:49 Consult Urology Routine Ordered Studies 12/19/22 23:58 CT abd pelvis wo con Stat Hospital Course (1) Hematuria: 2nd malpositioned khan catheter at time of admission. hematuria resolved once khan was replaced. appreciate urology consultation. H/H stable; urine is clear. resumed plavix. will resume eliquis tonight. follow urine. (2) Ambulatory dysfunction: Continue OT and PT. He will need SNF placement at discharge. He has muscle wasting of both thighs - 2nd to lumbar spinal stenosis or other peripheral neuropathy condition? He denies any back pain, however. Has numbness intermittently in right leg but not the left. Consider l-spine MRI. In addition, he has OA of both the left hip and left knee contributing to his walking issues. (3) KENDRICK (acute kidney injury): obstructive resolving Peak Cr 2.4 Today Cr 1.4 BMP in 2-3 days for stability (4) PAF (paroxysmal atrial fibrillation): Experienced rapid a.fib in 10/2022. did not tolerate the a.fib that well. was placed on amiodarone at that time. was taking such up until this admission. he is also on a very high dose of metoprolol succinate twice daily. both meds are on hold due to bradycardia. Eliquis - resume tonight. cont tele. (5) Hypertension: Controlled (6) Diabetes mellitus, type 2: hba1c 6% in October 2022 needing seldom novolog can d/c BSGs and novolog just cont dietary control (7) Folate deficiency: start folic acid 1mg daily x 30 days start B12 supplementation 1000mcg daily (8) Hypomagnesemia: replaced resolved (9) CAD (coronary artery disease): no ischemic symptoms at this time dose of metoprolol succ will need adjustment due to sinus rosalina cont plavix cont lipitor (10) S/P ureteral stent placement: b/l stents originally placed 08/2022 exchanged 09/2022 exchanged again 11/2022 (11) Arthritis of knee, left: moderate-severe voltaren gel 4gm QID certainly can contribute to falls, etc (12) History of femur fracture: left checked x-rays for OA - moderate OA noted Plan dispo- SNF for rehab Discharge Plan Discharge Items Patient Disposition: Transfer [facility] Reason For Visit: CONSTIPATION Discharge Diagnosis: 1. khan dysfunction - resolved; khan replaced and no issues since 2. hematuria - due to khan lodged in prostate gland - resolved, has not recurred 3. folate deficiency 4. left knee arthritis 5. left hip arthritis 6. severe constipation - resolved 7. paroxysmal a.fib 8. history of T2DM - most recent Hba1c 6% 9. acute renal failure due to #1 - resolved; discharge Creatinine 1.4 10. CAD 11. h/o bladder cancer - [place] [facility] 12. b/l ureteral stents - [place] [facility] Activity: Resume your previous activity Non-emergency contact: Primary Care Provider, Specialist and Urologist Call non-emergency contact if: you have any medication questions, your symptoms worsen and you have a fever Follow-up/Referrals: Faheem Krishnamurthy DO [Physician] - 01/02/23 9:35 am Delmi Umanzor MD [Primary Care Provider] - Joseph Goldsmith MD [Physician] - (first available - ambulatory dysfunction with left knee & hip arthritis ) Diet: Carb Consistent or DM2 Addtl Attending Provider Instructions: Mr Benavidez was hospitalized due to khan dysfunction and hematuria. The khan was malpositioned and was replaced at time of admission. Hematuria resolved with proper positioning of khan & time. Had acute kidney injury from the above and this resolved during the stay; discharge creatinine 1.4. NO UTI was found during this admission. Patient has h/o a.fib but was in normal rhythm this entire stay. he was bradycardic on previous doses of amiodarone and metoprolol; both were held, and HRs are now in the 70s. He has been resumed on Eliquis for stroke prevention. He has scheduled f/u [place] [facility] [place] follow-up of bladder cancer, stents, and khan. Diabetes has been essentially diet controlled during the stay. required minimal to no insulin. Check BSGs ac/hs. Check CBC and BMP/magnesium level in 3 days for stability; results to medical management trainer. Pending Studies at Discharge: No Stand-Alone Forms: My [facility] Skilled Items Patient informed of condition?: Yes DNR: No Discharge Level of Care: Skilled Communicable Disease: No Discharge Prognosis: Stable Lines: None Urinary Catheter: Yes Medications and DC Order Prescriptions: New acetaminophen 325 mg Tablet 650 mg PO Q4H PRN (Reason: fever or pain) Qty: 1 0RF cyanocobalamin (vitamin B-12) 500 mcg Tablet 1,000 mcg PO QAM Qty: 60 2RF folic acid 1 mg Tablet 1 mg PO QAM 30 Days Qty: 30 0RF ferrous sulfate 325 mg (65 mg iron) Tablet,Delayed Release (Dr/Ec) 325 mg PO BIDM Qty: 60 0RF diclofenac sodium [Voltaren Arthritis Pain] 1 % Gel 4 g EXT QID Qty: 1 0RF Rx Instructions: apply to left knee Eliquis 5 mg Tablet 5 mg PO BID Qty: 60 2RF metoprolol tartrate 25 mg tablet 25 mg PO BID Qty: 60 2RF Rx Instructions: hold for heart rate less 55 Continued atorvastatin 80 mg tablet 80 mg PO QAM Qty: 90 3RF (DME) Bedside [facility] [place] Instructions .Route Qty: 1 0RF Rx Instructions: As directed finasteride 5 mg tablet 5 mg PO DAILY Qty: 30 11RF amlodipine 10 mg tablet 10 mg PO QAM oxybutynin chloride 5 mg tablet 5 mg PO Q8H PRN (Reason: bladder spasms) Qty: 20 0RF clopidogrel 75 mg tablet 75 mg PO QAM albuterol sulfate 90 mcg/actuation HFA aerosol inhaler 2 puff INHALATION Q6H PRN (Reason: Shortness Of Breath Or Wheezing) Changed polyethylene glycol 3350 [Miralax] 17 gram Powder In Packet 17 g PO DAILY Qty: 14 0RF Discontinued metformin 500 mg tablet extended release 24 hr 500 mg PO BID Qty: 180 3RF Rx Instructions: PER PT "SINCE DIET IS MUCH BETTER, DO NOT ALWAYS TAKE SECOND DOSE OF METFORMIN". metoprolol succinate 200 mg tablet extended release 24 hr 200 mg PO BID Qty: 180 3RF sulfamethoxazole-trimethoprim [Bactrim DS] 800-160 mg Tablet 1 tab PO Q12 Qty: 0 0RF Rx Instructions: ORDERED 12/03/22. UNABLE TO VERIFY IF PT STILL TAKING THIS MED. PT "DOESN'T KNOW MEDS". calcium acetate(phosphat bind) 667 mg Capsule 667 mg PO TIDM Qty: 1 0RF Discharge Orders: Discharge Order (Routine); Ordered 12/26/22 Ordered By: Srini Meza Admission Data Admit Date/Time: 12/20/22 13:41 Attending Provider: Srini Meza Admit Provider: Oumar Rivas Primary Care Provider: Delmi Umanzor Other Providers: Marija Goldsmith ; Kenyon Salgado ; Jose Mota ; Ian Duran ; Ching Campbell ; Faheem Krishnamurthy ; Zully Kendall ; Mariel Cohn ; Chad Ryan ; Julio Cesar Richards ; Katina Gore ; Jovani De La Cruz ; Declan Bella ; [facility] ; [facility] [place] ; [facility], Coding Diagnoses Hematuria R31.9 Ambulatory dysfunction R26.2 KENDRICK (acute kidney injury) N17.9 PAF (paroxysmal atrial fibrillation) I48.0 Hypertension I10 Diabetes mellitus, type 2 E11.9 Diabetes mellitus complication status: without complication Diabetes mellitus skilled nursing insulin use: without skilled nursing use Folate deficiency E53.8 Hypomagnesemia E83.42 CAD (coronary artery disease) I25.10 S/P ureteral stent placement Z96.0 Arthritis of knee, left M17.12 History of femur fracture Z87.81
== END 2022-12-26 15:24 | DRG 699 ==
LOC: ED 21:06 → EDINP 21:06 → 2N 12-20 03:11 → SUATTDRO 12-20 13:41

== ENCOUNTER 2023-02-27 13:42 | Inpatient (IN) ==
[2023-02-27 15:08] LABS: Basophils # (auto) 0.03 K/uL (0.00-0.20); Basophils % (auto) 0.2 %; Hematocrit (blood only) 39.5 % (42.0-52.0); Immature Granulocytes # (auto) 0.05 K/uL (0.01-0.20); Immature Granulocytes % (auto) 0.3 %; Lymphocytes # (auto) 1.01 K/uL (1.20-3.40); Lymphocytes % (auto) 6.7 %; Mean Corpuscular Hemoglobin 29.5 pg (25.0-34.0); Mean Corpuscular Hgb Conc 32.9 g/dL (32.0-36.0); Mean Corpuscular Volume 89.8 fL (80.0-100.0); Mean Platelet Volume 10.8 fL (9.4-12.4); Monocytes # (auto) 0.64 K/uL (0.11-0.59); Monocytes % (auto) 4.3 %; Neutrophils # (auto) 13.26 K/uL (1.40-6.50); Neutrophils % (auto) 88.5 %; Platelet Count 223 K/uL (130-400); RDW Coefficient of Variation 13.7 % (11.5-14.5); RDW Standard Deviation 45.1 fL (36.4-46.3); White Blood Count 14.99 K/ul (4.8-10.8)
[2023-02-27 15:15] LABS: Alanine Aminotransferase 4 U/L (7-52); Albumin Globulin Ratio 1.1 (0.9-2); Albumin Level 3.8 gm/dl (3.4-5.0); Alkaline Phosphatase 79 U/L (34-104); Anion Gap 9 (3-11); Aspartate Aminotransferase 9 U/L (13-39); BUN Creatinine Ratio 14.3 (10-20); Bilirubin,Total 0.6 mg/dl (0.2-1.0); Blood Urea Nitrogen 30 mg/dl (6-23); Carbon Dioxide 23 mmol/L (21-32); Chloride 106 mmol/L (98-107); Est GFR (African American) 34.4 ml/min; Est GFR (Non-African American) 29.7 ml/min; Globulin 3.5 gm/dl (2.5-4.0); Glucose 146 mg/dl (70-99(Fasting)); Potassium 3.8 mmol/L (3.5-5.1); Sodium 138 mmol/L (136-145); Total Protein 7.3 gm/dl (6.0-8.3)
[2023-02-27] MEDS ORDERED: ACETAMINOPHEN 325 MG TAB PO STA (16:25)
[2023-02-27] MEDS ORDERED: cefTRIAXone SODIUM 2,000 MG/50 ML BAG IV STA (16:25)
--- NOTE | 2023-02-27 16:28 | Emergency Department Note ---
Impression & Plan Sepsis, Fever, Leukocytosis, Acute UTI ED Provider Note NAME: RAKEL DELA CRUZ AGE: 78 SEX: M : 1945 ARRIVES VIA: Ambulance INFORMANT: Patient ED PROVIDER(S): Jarrod Whalen DO CHIEF COMPLAINT: fever and weak HPI: Patient is a 78-year-old male who presents ER for weakness. He notes he has bladder cancer and he had a scope performed yesterday and was discharged. He comes in today as he is too weak to get up and walk around. He admits to chills and fatigue. He tried to get up and he lowered himself to the ground. He did not fall and hit his head. He denies any head pain or neck pain. No chest pain or shortness of breath. He does admit to dysuria urgency and frequency. He had a Kennedy placed previously and was just recently removed. ADDITIONAL HISTORY OBTAINED: Per HPI Chronic Medical/Social Conditions Affecting Care: Per HPI PAST MEDICAL HISTORY:See Below PAST SURGICAL HISTORY:See Below FAMILY HISTORY:See Below SOCIAL HISTORY:See Below HOME MEDICATIONS:See Below ALLERGIES:[See Below] VITALS:See Below PHYSICAL EXAMINATION: GENERAL: Sitting up in bed, alert, disheveled, cachectic EYE EXAM: normal conjunctiva. PERRL and EOM's grossly intact. OROPHARYNX: no exudate, no erythema, lips, buccal mucosa, and tongue normal and mucous membranes are moist NECK: supple, no nuchal rigidity, no adenopathy, non-tender LUNGS: Clear to auscultation. Normal chest wall mechanics HEART: no murmurs, S1 normal and S2 normal ABDOMEN: abdomen soft, non-tender, normo-active bowel sounds, no masses, no rebound or guarding. UPPER EXTREMITIES: upper extremities are grossly normal. LOWER EXTREMITIES: No pitting edema. NEURO EXAM: Normal sensorium, cranial nerves II-XII grossly intact, normal speech, no gross weakness of arms, no gross weakness of legs. MEDICAL DECISION MAKING: Patient is a 78-year-old male who presents ER for the above-stated complaint. IV was established blood work was obtained. Patient was found to be tachycardic and febrile. Labs show leukocytosis of 14,000. No significant anemia. BMP with creatinine 2.1 up from baseline of 1.5. LFTs bilirubin was unremarkable. Pro-Geo elevated at 1.2. UA does show clear UTI. Patient was given IV Rocephin and 2 L IV fluids. Chest x-ray was unremarkable. I did update urology and hospitalist for further evaluation management and treatment of urosepsis. Lactate was also initially elevated at 3. External Records Reviewed: From recent urology cystoscopy for cancer Consults/Care Managements Discussions: Per MDM Triage Nursing notes reviewed. Limited review of prior medical records performed Vital Signs: reviewed and remarkable for febrile and tachycardic Differential diagnosis: Differential diagnosis includes etiologies such as sepsis, UTI, pneumonia, metabolic, electrolyte abnormalities, cardiac sources, intracerebral event, toxicologic, neurological, as well as others were entertained. ER treatment provided: See below Diagnostics interpreted by me include EKG and cardiac monitoring as listed below: -Cardiac Monitoring: An order was placed for continuous cardiac monitoring. The monitor shows a rate of 101 with sinus rhythm. -ECG: none -Laboratory studies:Interpreted by me as stated above in MDM and shown below. Imaging studies: Xrays: As interpreted by me: Portable AP upright 1 view of the chest shows no focal infiltrate KUB per my read shows bilateral ureteral stents in place CTs show: none Procedures:none Critical Care: None Past Med/Surg History Medical History (Updated 02/27/23 @ 22:50 by Jarrod Whalen DO) Abdominal pain Acute hyperkalemia Acute kidney injury Acute renal failure Acute urinary retention KENDRICK (acute kidney injury) Ambulatory dysfunction ARF (acute renal failure) Arthritis of knee, left Benign enlargement of prostate Bladder cancer newly diagnosed 08/2022. Bladder tumor CAD (coronary artery disease) "Multi-Vessel CAD s/p Ostial and Proximal LAD NEVA x 2 and OM1 NEVA 07/01/2018 (with residual borderline D2 stenosis, OM2 stenosis, RCA/PDA stenoses which are felt amenable to complex PCI" follows with [facility] Chest tightness Constipation Dehydration Diabetes mellitus, type 2 NIDDM Dyslipidemia Elevated troponin Encounter for pre-operative examination Epigastric abdominal pain Fall Folate deficiency Generalized weakness Hematuria Hematuria History of colon polyps History of femur fracture Hydronephrosis Hyperkalemia Hyperkalemia, diminished renal excretion Hypertension Hypomagnesemia Hyponatremia Joint pain, knee Leukocytosis Low back pain Microscopic hematuria Multi-vessel coronary artery stenosis Myocardial Infarction ~3 years ago. follows with Erik Beltran. PAF (paroxysmal atrial fibrillation) Palpitations Physical deconditioning Tubular adenoma of colon Urinary retention Urinary tract infection Weakness Weakness Surgical History H/O colonoscopy 08/2016, repeat 5 yrs History of cardiac cath ~3 years ago, "failed stress test, needed cath", [place] History of open reduction and internal fixation (ORIF) procedure Lt. Femur S/P ureteral stent placement Stented coronary artery ~3 years ago, [facility], following cath at [facility], x1 stent (resolut summer) placed; now f/u Luis Manuel Beltran PA-C, [facility] Cardio. Family History Father Non-Hodgkin's lymphoma Mother Multiple myeloma Sister Dyslipidemia Heart disease Hypertension Uncle Myocardial infarction Other No family history of adverse response to anesthesia Denies family history of Ovarian cancer Prostate cancer Breast cancer Colorectal cancer Social History Smoking Status: Former smoker Second Hand Exposure: No; Do You Dip or Chew Tobacco: No; Hx Alcohol Use: No Hx Substance Use: No Preferred Language: Italian Communication Ability: Effective Visual Impairment: Limited Hearing Ability: Normal Writing Center Director Required: No Beliefs That Will Affect Care: None marital status: Single Current Living Situation: Alone current occupational status: retired How many Children do You have: 0 Other Information That Helps Us Care for You: No Feels Safe at Home: Yes Safety Concerns: Feels Safe At This Time Childhood Exposure to Second-Hand Smoke: Yes caffeine: Yes Dental Care, Regularly: Yes Physical Activity Frequency: Daily Seatbelt Use: always Sunscreen Use: Yes Assistive Devices: Glasses Allergies Allergies Allergy/AdvReac Type Severity Reaction Status Date / Time No Known Allergies Allergy Verified 02/27/23 17:08 Home Meds Home Medications Medication Instructions Recorded Confirmed amlodipine 10 mg tablet 10 mg PO QAM 09/14/22 02/27/23 clopidogrel 75 mg tablet 75 mg PO QAM 12/20/22 02/27/23 metoprolol succinate 200 mg 200 mg PO QAM 02/12/23 02/27/23 tablet,extended release 24 hr (Toprol XL) Previous Rx's Medication Instructions Recorded atorvastatin 80 mg tablet 80 mg PO QAM #90 tabs 07/09/22 finasteride 5 mg tablet 5 mg PO DAILY #30 tabs 10/02/22 Bedside Commode #1 ea 12/19/22 acetaminophen 325 mg tablet 650 mg PO Q4H PRN fever or pain #1 12/26/22 tab ferrous sulfate 325 mg (65 mg 325 mg PO BIDM #60 tabs 12/26/22 iron) tablet,delayed release apixaban 5 mg tablet (Eliquis) 5 mg PO BID #180 tabs 02/19/23 Results & Data (ED) Vital Signs Vital Signs - 24 hr 02/27/23 13:50 02/27/23 17:02 02/27/23 16:50 Temperature 38.2 C H Temperature Source Temporal Artery Scan Pulse Rate 100 H 88 91 H Respiratory Rate 18 21 Respiratory Effort / Characteristics Non-Labored Spontaneous Respiratory Depth Normal Respiratory Pattern Regular Blood Pressure 199/80 H Blood Pressure Mean 119 Pulse Oximetry 99 Oxygen Delivery Method Room Air Sepsis Recent Fever Within 48 Hours Yes Sepsis New/Unexplained Change in Mental Status N/A Sepsis Action Taken by Nursing No Action Required 02/27/23 17:00 02/27/23 17:30 02/27/23 18:00 Temperature Temperature Source Pulse Rate 91 H 84 90 Respiratory Rate 19 21 15 Respiratory Effort / Characteristics Respiratory Depth Respiratory Pattern Blood Pressure Blood Pressure Mean Pulse Oximetry Oxygen Delivery Method Sepsis Recent Fever Within 48 Hours Sepsis New/Unexplained Change in Mental Status Sepsis Action Taken by Nursing 02/27/23 18:30 02/27/23 19:00 02/27/23 19:30 Temperature Temperature Source Pulse Rate 84 79 75 Respiratory Rate 19 16 23 Respiratory Effort / Characteristics Respiratory Depth Respiratory Pattern Blood Pressure Blood Pressure Mean Pulse Oximetry Oxygen Delivery Method Sepsis Recent Fever Within 48 Hours Sepsis New/Unexplained Change in Mental Status Sepsis Action Taken by Nursing Laboratory Data 02/27/23 14:42 02/27/23 14:42 Lab Results 02/27/23 02/27/23 02/27/23 Range/Units 14:42 14:42 14:42 WBC 14.99 H (4.8-10.8) K/ul RBC 4.40 L (4.70-6.10) M/uL Hgb 13.0 L (14.0-18.0) g/dl Hct 39.5 L (42.0-52.0) % MCV 89.8 (80.0-100.0) fL MCH 29.5 (25.0-34.0) pg MCHC 32.9 (32.0-36.0) g/dL RDW Std Deviation 45.1 (36.4-46.3) fL RDW Coeff of Elsi 13.7 (11.5-14.5) % Plt Count 223 (130-400) K/uL MPV 10.8 (9.4-12.4) fL Immature Gran % (Auto) 0.3 % Neut % (Auto) 88.5 % Lymph % (Auto) 6.7 % [place] % (Auto) 4.3 % Eos % (Auto) 0.0 % Baso % (Auto) 0.2 % Neut # (Auto) 13.26 H (1.40-6.50) K/uL Lymph # (Auto) 1.01 L (1.20-3.40) K/uL [place] # (Auto) 0.64 H (0.11-0.59) K/uL Eos # (Auto) 0.00 (0.00-0.50) K/uL Baso # (Auto) 0.03 (0.00-0.20) K/uL Immature Gran # (Auto) 0.05 (0.01-0.20) K/uL Sodium 138 (136-145) mmol/L Potassium 3.8 (3.5-5.1) mmol/L Chloride 106 (98-107) mmol/L Carbon Dioxide 23 (21-32) mmol/L Anion Gap 9 (3-11) BUN 30 H (6-23) mg/dl Creatinine 2.10 H (0.6-1.4) mg/dl Est Cr Clr Drug Dosing Not Reportable Est GFR ( Amer) 34.4 ml/min Est GFR (Non-Af Amer) 29.7 ml/min BUN/Creatinine Ratio 14.3 (10-20) Glucose 146 H (70-99(Fasting)) mg/dl Lactate (0.4-2.0) mmol/L Calcium 9.0 (8.6-10.3) mg/dl Total Bilirubin 0.6 (0.2-1.0) mg/dl AST 9 L (13-39) U/L ALT 4 L (7-52) U/L Alkaline Phosphatase 79 (34-104) U/L Total Protein 7.3 (6.0-8.3) gm/dl Albumin 3.8 (3.4-5.0) gm/dl Globulin 3.5 (2.5-4.0) gm/dl Albumin/Globulin Ratio 1.1 (0.9-2) Procalcitonin 1.32 H (0-0.5) ng/ml Urine Color Urine Appearance (Clear) Urine pH (4.5-7.5) Ur Specific [place] (1.000-1.030) Urine Protein (Negative) Urine Glucose (UA) (Negative) Urine Ketones (Negative) Urine Blood (Negative) Urine Nitrite (Negative) Urine Bilirubin (Negative) Urine Urobilinogen (Negative) Ur Leukocyte Esterase (Negative) Urine WBC (Auto) (0-5) /hpf Urine RBC (Auto) (0-4) /hpf U Hyaline Cast (Auto) (0-5) /lpf U Epithel Cells (Auto) (0-5) /lpf Urine Bacteria (Auto) (Negative) Urine Yeast Adenovirus (PCR) (NotDetected) B. pertussis DNA (PCR) (NotDetected) B.parapertussis DNA PCR (NotDetected) C. pneumoniae DNA (PCR) (NotDetected) Coronavirus OC43 (PCR) (NotDetected) Coronavirus HKU1 (PCR) (NotDetected) Coronavirus 229E (PCR) (NotDetected) SARS-CoV-2 (PCR) (NotDetected) Coronavirus NL63 (PCR) (NotDetected) Human Metapneumovir PCR (NotDetected) Influenza Type A (PCR) (NotDetected) Influenza Type B (PCR) (NotDetected) M. pneumoniae (PCR) (NotDetected) Parainfluenza 1 (PCR) (NotDetected) Parainfluenza 2 (PCR) (NotDetected) Parainfluenza 3 (PCR) (NotDetected) Parainfluenza 4 (PCR) (NotDetected) RSV (PCR) (NotDetected) Entero/Rhino (PCR) (NotDetected) 02/27/23 02/27/23 02/27/23 Range/Units 15:19 17:00 17:11 WBC (4.8-10.8) K/ul RBC (4.70-6.10) M/uL Hgb (14.0-18.0) g/dl Hct (42.0-52.0) % MCV (80.0-100.0) fL MCH (25.0-34.0) pg MCHC (32.0-36.0) g/dL RDW Std Deviation (36.4-46.3) fL RDW Coeff of Elsi (11.5-14.5) % Plt Count (130-400) K/uL MPV (9.4-12.4) fL Immature Gran % (Auto) % Neut % (Auto) % Lymph % (Auto) % [place] % (Auto) % Eos % (Auto) % Baso % (Auto) % Neut # (Auto) (1.40-6.50) K/uL Lymph # (Auto) (1.20-3.40) K/uL [place] # (Auto) (0.11-0.59) K/uL Eos # (Auto) (0.00-0.50) K/uL Baso # (Auto) (0.00-0.20) K/uL Immature Gran # (Auto) (0.01-0.20) K/uL Sodium (136-145) mmol/L Potassium (3.5-5.1) mmol/L Chloride (98-107) mmol/L Carbon Dioxide (21-32) mmol/L Anion Gap (3-11) BUN (6-23) mg/dl Creatinine (0.6-1.4) mg/dl Est Cr Clr Drug Dosing Est GFR ( Amer) ml/min Est GFR (Non-Af Amer) ml/min BUN/Creatinine Ratio (10-20) Glucose (70-99(Fasting)) mg/dl Lactate 3.6 H* (0.4-2.0) mmol/L Calcium (8.6-10.3) mg/dl Total Bilirubin (0.2-1.0) mg/dl AST (13-39) U/L ALT (7-52) U/L Alkaline Phosphatase (34-104) U/L Total Protein (6.0-8.3) gm/dl Albumin (3.4-5.0) gm/dl Globulin (2.5-4.0) gm/dl Albumin/Globulin Ratio (0.9-2) Procalcitonin (0-0.5) ng/ml Urine Color Red Urine Appearance Turbid A (Clear) Urine pH 6.5 (4.5-7.5) Ur Specific [place] 1.011 (1.000-1.030) Urine Protein 3+ H (Negative) Urine Glucose (UA) Negative (Negative) Urine Ketones Negative (Negative) Urine Blood 3+ H (Negative) Urine Nitrite Negative (Negative) Urine Bilirubin 1+ H (Negative) Urine Urobilinogen Negative (Negative) Ur Leukocyte Esterase 3+ H (Negative) Urine WBC (Auto) >30 H (0-5) /hpf Urine RBC (Auto) >30 H (0-4) /hpf U Hyaline Cast (Auto) 1-5 (0-5) /lpf U Epithel Cells (Auto) >30 H (0-5) /lpf Urine Bacteria (Auto) 4+ H (Negative) Urine Yeast Not Reportable Adenovirus (PCR) Not Detected (NotDetected) B. pertussis DNA (PCR) Not Detected (NotDetected) B.parapertussis DNA PCR Not Detected (NotDetected) C. pneumoniae DNA (PCR) Not Detected (NotDetected) Coronavirus OC43 (PCR) Not Detected (NotDetected) Coronavirus HKU1 (PCR) Not Detected (NotDetected) Coronavirus 229E (PCR) Not Detected (NotDetected) SARS-CoV-2 (PCR) Not Detected (NotDetected) Coronavirus NL63 (PCR) Not Detected (NotDetected) Human Metapneumovir PCR Not Detected (NotDetected) Influenza Type A (PCR) Not Detected (NotDetected) Influenza Type B (PCR) Not Detected (NotDetected) M. pneumoniae (PCR) Not Detected (NotDetected) Parainfluenza 1 (PCR) Not Detected (NotDetected) Parainfluenza 2 (PCR) Not Detected (NotDetected) Parainfluenza 3 (PCR) Not Detected (NotDetected) Parainfluenza 4 (PCR) Not Detected (NotDetected) RSV (PCR) Not Detected (NotDetected) Entero/Rhino (PCR) Not Detected (NotDetected) 10/18/23 Range/Units 18:07 WBC (4.8-10.8) K/ul RBC (4.70-6.10) M/uL Hgb (14.0-18.0) g/dl Hct (42.0-52.0) % MCV (80.0-100.0) fL MCH (25.0-34.0) pg MCHC (32.0-36.0) g/dL RDW Std Deviation (36.4-46.3) fL RDW Coeff of Elsi (11.5-14.5) % Plt Count (130-400) K/uL MPV (9.4-12.4) fL Immature Gran % (Auto) % Neut % (Auto) % Lymph % (Auto) % [place] % (Auto) % Eos % (Auto) % Baso % (Auto) % Neut # (Auto) (1.40-6.50) K/uL Lymph # (Auto) (1.20-3.40) K/uL [place] # (Auto) (0.11-0.59) K/uL Eos # (Auto) (0.00-0.50) K/uL Baso # (Auto) (0.00-0.20) K/uL Immature Gran # (Auto) (0.01-0.20) K/uL Sodium (136-145) mmol/L Potassium (3.5-5.1) mmol/L Chloride (98-107) mmol/L Carbon Dioxide (21-32) mmol/L Anion Gap (3-11) BUN (6-23) mg/dl Creatinine (0.6-1.4) mg/dl Est Cr Clr Drug Dosing Est GFR ( Amer) ml/min Est GFR (Non-Af Amer) ml/min BUN/Creatinine Ratio (10-20) Glucose (70-99(Fasting)) mg/dl Lactate (0.4-2.0) mmol/L Calcium (8.6-10.3) mg/dl Total Bilirubin (0.2-1.0) mg/dl AST (13-39) U/L ALT (7-52) U/L Alkaline Phosphatase (34-104) U/L Total Protein (6.0-8.3) gm/dl Albumin (3.4-5.0) gm/dl Globulin (2.5-4.0) gm/dl Albumin/Globulin Ratio (0.9-2) Procalcitonin (0-0.5) ng/ml Urine Color [place] Urine Appearance Turbid A (Clear) Urine pH 6.5 (4.5-7.5) Ur Specific [place] 1.012 (1.000-1.030) Urine Protein 3+ H (Negative) Urine Glucose (UA) Negative (Negative) Urine Ketones Negative (Negative) Urine Blood 3+ H (Negative) Urine Nitrite Negative (Negative) Urine Bilirubin Negative (Negative) Urine Urobilinogen Negative (Negative) Ur Leukocyte Esterase 3+ H (Negative) Urine WBC (Auto) >30 H (0-5) /hpf Urine RBC (Auto) 5-10 H (0-4) /hpf U Hyaline Cast (Auto) 1-5 (0-5) /lpf U Epithel Cells (Auto) 5-10 H (0-5) /lpf Urine Bacteria (Auto) 4+ H (Negative) Urine Yeast Not Reportable Adenovirus (PCR) (NotDetected) B. pertussis DNA (PCR) (NotDetected) B.parapertussis DNA PCR (NotDetected) C. pneumoniae DNA (PCR) (NotDetected) Coronavirus OC43 (PCR) (NotDetected) Coronavirus HKU1 (PCR) (NotDetected) Coronavirus 229E (PCR) (NotDetected) SARS-CoV-2 (PCR) (NotDetected) Coronavirus NL63 (PCR) (NotDetected) Human Metapneumovir PCR (NotDetected) Influenza Type A (PCR) (NotDetected) Influenza Type B (PCR) (NotDetected) M. pneumoniae (PCR) (NotDetected) Parainfluenza 1 (PCR) (NotDetected) Parainfluenza 2 (PCR) (NotDetected) Parainfluenza 3 (PCR) (NotDetected) Parainfluenza 4 (PCR) (NotDetected) RSV (PCR) (NotDetected) Entero/Rhino (PCR) (NotDetected) Administered Medications Discontinued Medications Acetaminophen (Acetaminophen 325 Mg Tab) 650 mg PO NOW STA Stop: 02/27/23 16:26 Last Admin: 02/27/23 17:39 Dose: 650 mg Documented By: ACC Sodium Chloride (Nss) 1,000 mls @ 999 mls/hr IV .Q1H1M MITCH Stop: 02/27/23 18:30 Last Infusion: 02/27/23 20:25 Dose: 0 mls/hr Documented By: Admin: 02/27/23 20:12 Dose: Not Given Documented By: Admin: 02/27/23 18:55 Dose: 999 mls/hr Documented By: ACC Ceftriaxone Sodium (Rocephin) 2,000 mg in 50 mls @ 100 mls/hr IV NOW STA Stop: 02/27/23 16:54 Last Infusion: 02/27/23 20:25 Dose: 0 mls/hr Documented By: Admin: 02/27/23 18:04 Dose: 100 mls/hr Documented By: ACC Parenteral Electrolytes (Plasma-Lyte A Ph 7.4) 1,000 mls @ 999 mls/hr IV .Q1H1M ONE Stop: 02/27/23 19:32 Last Infusion: 02/27/23 21:25 Dose: 0 mls/hr Documented By: Admin: 02/27/23 20:11 Dose: 999 mls/hr Documented By: ACC Lidocaine HCl (Lidocaine 2% Jelly 5 Ml Tube) Confirm Administered Dose 5 ml EXT .STK-MED ONE Stop: 02/27/23 17:29 Last Admin: 02/27/23 17:51 Dose: Not Given Documented By: ACC Lidocaine HCl (Lidocaine 2% Jelly 5 Ml Tube) 4 ml EXT NOW ONE Stop: 02/27/23 17:49 Last Admin: 02/27/23 17:51 Dose: 4 ml Documented By: ACC Imaging Data Radiologist's Impression: Chest X-Ray 02/27/23 16:25 XR chest 1V portable CLINICAL HISTORY: sepsis TECHNIQUE: Single frontal radiograph of the chest was obtained. Comparison: Comparison is made to chest radiograph 11/26/2022 FINDINGS: No lines and tubes are seen. Calcified aortic knob is seen. The lungs are clear. No evidence of pleural effusion or pneumothorax. IMPRESSION: No acute abnormalities and in particular no radiographic evidence of pneumonia. ACT 112: Negative or not required by law. Electronically signed by: Sathya Goldman M.D. 02/27/2023 6:00 PM KUB X-Ray 02/27/23 16:25 XR KUB/Abdomen 1 view CLINICAL HISTORY: stent TECHNIQUE: 1 view of the abdomen was obtained. Comparison: Comparison is made to chest and abdomen radiograph 11/03/2022 FINDINGS: Bilateral nephroureteral stents are seen. Degenerative changes are seen in the visualized skeleton. The bowel gas pattern is nonobstructive. A moderate amount of stool is noted within the large bowel. IMPRESSION: Satisfactory appearance of bilateral nephroureteral stents. ACT 112: Negative or not required by law. Electronically signed by: Sathya Goldman M.D. 02/27/2023 6:16 PM Discharge Plan Visit Data Chief Complaint: Weakness Stated Complaint: WEAKNESS, DIFF AMBULATING ED Provider: Jarrod Whalen Discharge Problem: Sepsis, Fever, Leukocytosis, Acute UTI Patient Disposition: Admitted As Inpatient Discharge Instructions Interventions: ED Discharge Assessment Last Done: 02/27/23 22:03
[2023-02-27 17:28] LABS: Appearance Urine Turbid (Clear); Bacteria Urine Automated 4+ (Negative); Blood Urine 3+ (Negative); Color Urine Red; Epithelial Cell Urine Auto >30 /lpf (0-5); Glucose Urine UA Negative (Negative); Ketones Urine Negative (Negative); Leukocyte Esterase Urine 3+ (Negative); Nitrite Urine Negative (Negative); Protein Urine 3+ (Negative); Specific Gravity Urine 1.011 (1.000-1.030); Urobilinogen Urine Negative (Negative); WBC Urine Automated >30 /hpf (0-5); pH Urine 6.5 (4.5-7.5)
[2023-02-27] MEDS ORDERED: LIDOCAINE 2% JELLY 5 ML TUBE EXT ONE ×2 (17:28→17:48)
[2023-02-27 17:47] LABS: Bilirubin Urine 1+ (Negative)
[2023-02-27 17:59] LABS: RBC Urine Automated >30 /hpf (0-4)
--- NOTE | 2023-02-27 18:01 | XRay Report ---
XR chest 1V portable CLINICAL HISTORY: sepsis TECHNIQUE: Single frontal radiograph of the chest was obtained. Comparison: Comparison is made to chest radiograph 11/26/2022 FINDINGS: No lines and tubes are seen. Calcified aortic knob is seen. The lungs are clear. No evidence of pleur al effusion or pneumothorax. IMPRESSION: No acute abnormalities and in particular no radiographic evidence of pneumonia. ACT 112: Negative or not required by law. Electronically signed by: Sathya Goldman M.D. 02/27/2023 6:00 PM
--- NOTE | 2023-02-27 18:17 | XRay Report ---
XR KUB/Abdomen 1 view CLINICAL HISTORY: stent TECHNIQUE: 1 view of the abdomen was obtained. Comparison: Comparison is made to chest and abdomen radiograph 11/03/2022 FINDINGS: Bilateral nephroureteral stents are seen. Degenerative changes are seen in the visualized skeleton. T he bowel gas pattern is nonobstructive. A moderate amount of stool is noted within the large bowel. IMPRESSION: Satisfactory appearance of bilateral nephroureteral stents. ACT 112: Negative or not required by law. Electronically signed by: Sathya Goldman M.D. 02/27/2023 6:16 PM
[2023-02-27] MEDS ORDERED: PLASMA-LYTE A 1,000 ML IV ONE (18:32)
[2023-02-27 18:38] LABS: Appearance Urine Turbid (Clear); Bacteria Urine Automated 4+ (Negative); Bilirubin Urine Negative (Negative); Blood Urine 3+ (Negative); Color Urine Orange; Glucose Urine UA Negative (Negative); Ketones Urine Negative (Negative); Leukocyte Esterase Urine 3+ (Negative); Nitrite Urine Negative (Negative); Protein Urine 3+ (Negative); Specific Gravity Urine 1.012 (1.000-1.030); Urobilinogen Urine Negative (Negative); WBC Urine Automated >30 /hpf (0-5); pH Urine 6.5 (4.5-7.5)
--- NOTE | 2023-02-27 18:48 | History & Physical Report ---
Date of Service February 27, 2023 Assessment & Plan (1) UTI (urinary tract infection): Plan: UA positive on arrival for blood, protein, and bacteria New catheter placed in the ED Clinically, patient denies urinary pain, and reports that burning with urination has largely resolved Hx of incomplete emptying obstruction, renal failure, and b/l hydronephrosis with incomplete emptying Bilateral double-J ureteral stents were planned to be removed next week, per patient; ?possibly infected instruments, per CT Abd/pelvis on 12/19/2022 Urine culture history of Tati glabrata complex on 10/30/2022; if present in current urine culture, recommend ID consult Procalcitonin elevated at 1.32 Continue Rocephin 2g daily Urine culture pending; antibiotic therapy to be guided by urine culture results Monitor indwelling Khan for signs of infection or drainage A.m. CBC, BMP (2) Sepsis: Plan: Temp elevated at 38.2, HR 100bpm, and leukocytosis at 14.99 on arrival Likely urinary source Lactate 3.6 Biofire negative Blood cultures pending Patient received fluid bolus in the ED Patient is producing urine; continue fluid resus (3) Bladder cancer: Plan: S/p TURBT x2 Cystoscopy on 02/26 Appreciate urology assistance (4) Hematuria: Plan: UA positive for blood Urine and Khan bag pain Hold Plavix and Eliquis and Plavix in the setting of gross hematuria (5) ARF (acute renal failure): Plan: BUN 30, creatinine 2.1 (baseline 1.5), and EGFR of 29.7 Patient is currently producing urine Strict I&O monitoring Continue to monitor with daily BMPs (6) PAF (paroxysmal atrial fibrillation): Plan: Continue metoprolol Hold Eliquis [facility] ADA, T2DM diet DVT PPx: Eliquis held at the moment due to potential hematuria Full code History of Present Illness Chief Complaint: Weakness x1 day Primary Care Provider: Delmi Umanzor MD Neo is a 78-year-old male with PMH of complicated UTI and bladder cancer. He presents via EMS after being discharged from [facility] yesterday for cystoscopy for his bladder cancer. He reports that he woke up this morning and he is legs felt like "rubber". Too weak to walk. Fell when getting out of bed; no LOC; no head strike. Patient lives alone in a trailer home. He has had leg weakness in the past, but never to this extent (per patient, at [facility] 2 months ago for leg rehab). He reports that he did not take his morning medications. He did have his a catheter removed yesterday following procedure. Patient uses catheters at home, and mentions that he was recently taught the self catheterize. Patient is having surgery soon for urinary stent removal; planned for next week. He denies pain at present. He reports has not been drinking much water recently; dehydrated. Former tobacco cigarette smoker; quit in . Denies alcohol use in the past 4 years. Notes recent weight loss 160 --> 130lb in the past two months. Hypertensive at 199/80, and temp at 38.2 on arrival; vitals stabilized shortly after. ED course: Rocephin 2000mg IV, NSS 1000 mL + Plasmalyte 1000mL, acetaminophen 650 mg ROS: Patient endorses diarrhea burning with urination (cleared up this morning), dysuria, numbness/tingling down legs. Patient denies fever, chills, sweating, CP, SOB, adominal pain, N/V, urinary retention, saddle anesthesia, back pain, or blood in the urine or stool. Note: Patient mentioned he may have left his wallet in [facility]; unable to contact EMS Please see Dr. Grace's attestation for any changes to treatment plan. Allergies Allergy/AdvReac Type Severity Reaction Status Date / Time No Known Allergies Allergy Verified 02/27/23 17:08 Home Medications Medication Instructions Recorded Confirmed Type atorvastatin 80 mg tablet 80 mg PO QAM #90 tabs 07/09/22 02/27/23 Rx amlodipine 10 mg tablet 10 mg PO QAM 09/14/22 02/27/23 History finasteride 5 mg tablet 5 mg PO DAILY #30 tabs 10/02/22 02/27/23 Rx Bedside Commode #1 ea 12/19/22 02/27/23 Rx clopidogrel 75 mg tablet 75 mg PO QAM 12/20/22 02/27/23 History acetaminophen 325 mg tablet 650 mg PO Q4H PRN fever or pain #1 12/26/22 02/27/23 Rx tab ferrous sulfate 325 mg (65 mg 325 mg PO BIDM #60 tabs 12/26/22 02/27/23 Rx iron) tablet,delayed release metoprolol succinate 200 mg 200 mg PO QAM 02/12/23 02/27/23 History tablet,extended release 24 hr (Toprol XL) apixaban 5 mg tablet (Eliquis) 5 mg PO BID #180 tabs 02/19/23 02/27/23 Rx Past Med/Surg History Medical History (Updated 02/27/23 @ 22:50 by Jarrod Whalen DO) Abdominal pain Acute hyperkalemia Acute kidney injury Acute renal failure Acute urinary retention KENDRICK (acute kidney injury) Ambulatory dysfunction ARF (acute renal failure) Arthritis of knee, left Benign enlargement of prostate Bladder cancer newly diagnosed 08/2022. Bladder tumor CAD (coronary artery disease) "Multi-Vessel CAD s/p Ostial and Proximal LAD NEVA x 2 and OM1 NEVA 07/01/2018 (with residual borderline D2 stenosis, OM2 stenosis, RCA/PDA stenoses which are felt amenable to complex PCI" follows with [place] [facility] Chest tightness Constipation Dehydration Diabetes mellitus, type 2 NIDDM Dyslipidemia Elevated troponin Encounter for pre-operative examination Epigastric abdominal pain Fall Folate deficiency Generalized weakness Hematuria Hematuria History of colon polyps History of femur fracture Hydronephrosis Hyperkalemia Hyperkalemia, diminished renal excretion Hypertension Hypomagnesemia Hyponatremia Joint pain, knee Leukocytosis Low back pain Microscopic hematuria Multi-vessel coronary artery stenosis Myocardial Infarction ~3 years ago. follows with Erik Beltran. PAF (paroxysmal atrial fibrillation) Palpitations Physical deconditioning Tubular adenoma of colon Urinary retention Urinary tract infection Weakness Weakness Surgical History H/O colonoscopy 08/2016, repeat 5 yrs History of cardiac cath ~3 years ago, "failed stress test, needed cath", [place] History of open reduction and internal fixation (ORIF) procedure Lt. Femur S/P ureteral stent placement Stented coronary artery ~3 years ago, [facility], following cath at [facility], x1 stent (resolut summer) placed; now f/u Luis Manuel Beltran PA-C, [facility] Cardio. Family History Father Non-Hodgkin's lymphoma Mother Multiple myeloma Sister Dyslipidemia Heart disease Hypertension Uncle Myocardial infarction Other No family history of adverse response to anesthesia Denies family history of Ovarian cancer Prostate cancer Breast cancer Colorectal cancer Social History Smoking Status: Former smoker Second Hand Exposure: No; Do You Dip or Chew Tobacco: No; Hx Alcohol Use: No Hx Substance Use: No Preferred Language: Indonesian Communication Ability: Effective Visual Impairment: Limited Hearing Ability: Normal Ceramic Artist Required: No Beliefs That Will Affect Care: None marital status: Single Current Living Situation: Alone current occupational status: retired How many Children do You have: 0 Other Information That Helps Us Care for You: No Feels Safe at Home: Yes Safety Concerns: Feels Safe At This Time Childhood Exposure to Second-Hand Smoke: Yes caffeine: Yes Dental Care, Regularly: Yes Physical Activity Frequency: Daily Seatbelt Use: always Sunscreen Use: Yes Assistive Devices: Glasses Review of Systems Review of Systems: See HPI above Physical Exam Physical Exam: General: patient appears in no acute distress; appears stated age; well- nourished; cooperative HEENT: normocephalic, atraumatic; no scleral icterus; PERRLA w/ EOMs intact; moist mucus membrane; trachea midline; vision and hearing grossly intact Skin: warm, dry without signs of tenting; no cyanosis; no rashes, bruising, or lesions noted Cardiac: RRR; no new murmurs noted Pulm: no acute respiratory distress; symmetrical chest expansion; clear breath sounds across all lung hawthorne without adventitious sounds Abdominal: Soft, nontender to palpation; BS present; no ascites; no distention Back: Nontender to palpation; negative for CVA tenderness; potential lipoma or fluid buildup on the left superior back MSK: no tics or fasciculations; +2 pitting edema around the ankles; pulses intact and symmetrical at radial, DP, and PT : No discharge noted from the catheter site; light pink/purulent discharge in the catheter bag Neuro: A&Ox3; no tremors; no focal defects; sensation grossly intact in the LEs B/L; left leg strength diminished +4/5 when compared to right; patient demonstrates ability to wiggle toes Results & Data Results & Data Vital Signs (Past 12 Hours) Vital Signs Temp Pulse Resp BP Pulse Ox O2 Del Method 02/27/23 17:02 88 02/27/23 13:50 38.2 C H 100 H 18 199/80 H 99 Room Air Laboratory Results Abnormal lab results 02/27/23 02/27/23 02/27/23 Range/Units 14:42 14:42 14:42 WBC 14.99 H (4.8-10.8) K/ul RBC 4.40 L (4.70-6.10) M/uL Hgb 13.0 L (14.0-18.0) g/dl Hct 39.5 L (42.0-52.0) % Neut # (Auto) 13.26 H (1.40-6.50) K/uL Lymph # (Auto) 1.01 L (1.20-3.40) K/uL Kenedy # (Auto) 0.64 H (0.11-0.59) K/uL BUN 30 H (6-23) mg/dl Creatinine 2.10 H (0.6-1.4) mg/dl Glucose 146 H (70-99(Fasting)) mg/dl Lactate (0.4-2.0) mmol/L AST 9 L (13-39) U/L ALT 4 L (7-52) U/L Procalcitonin 1.32 H (0-0.5) ng/ml Urine Appearance (Clear) Urine Protein (Negative) Urine Blood (Negative) Urine Bilirubin (Negative) Ur Leukocyte Esterase (Negative) Urine WBC (Auto) (0-5) /hpf Urine RBC (Auto) (0-4) /hpf U Epithel Cells (Auto) (0-5) /lpf Urine Bacteria (Auto) (Negative) 02/27/23 02/27/23 02/27/23 Range/Units 17:00 17:11 18:07 WBC (4.8-10.8) K/ul RBC (4.70-6.10) M/uL Hgb (14.0-18.0) g/dl Hct (42.0-52.0) % Neut # (Auto) (1.40-6.50) K/uL Lymph # (Auto) (1.20-3.40) K/uL Kenedy # (Auto) (0.11-0.59) K/uL BUN (6-23) mg/dl Creatinine (0.6-1.4) mg/dl Glucose (70-99(Fasting)) mg/dl Lactate 3.6 H* (0.4-2.0) mmol/L AST (13-39) U/L ALT (7-52) U/L Procalcitonin (0-0.5) ng/ml Urine Appearance Turbid A Turbid A (Clear) Urine Protein 3+ H 3+ H (Negative) Urine Blood 3+ H 3+ H (Negative) Urine Bilirubin 1+ H (Negative) Ur Leukocyte Esterase 3+ H 3+ H (Negative) Urine WBC (Auto) >30 H >30 H (0-5) /hpf Urine RBC (Auto) >30 H 5-10 H (0-4) /hpf U Epithel Cells (Auto) >30 H 5-10 H (0-5) /lpf Urine Bacteria (Auto) 4+ H 4+ H (Negative) Diagnostic Findings Chest X-Ray 02/27/23 16:25 XR chest 1V portable CLINICAL HISTORY: sepsis TECHNIQUE: Single frontal radiograph of the chest was obtained. Comparison: Comparison is made to chest radiograph 11/26/2022 FINDINGS: No lines and tubes are seen. Calcified aortic knob is seen. The lungs are clear. No evidence of pleural effusion or pneumothorax. IMPRESSION: No acute abnormalities and in particular no radiographic evidence of pneumonia. ACT 112: Negative or not required by law. Electronically signed by: Sathya Goldman M.D. 02/27/2023 6:00 PM KUB X-Ray 02/27/23 16:25 XR KUB/Abdomen 1 view CLINICAL HISTORY: stent TECHNIQUE: 1 view of the abdomen was obtained. Comparison: Comparison is made to chest and abdomen radiograph 11/03/2022 FINDINGS: Bilateral nephroureteral stents are seen. Degenerative changes are seen in the visualized skeleton. The bowel gas pattern is nonobstructive. A moderate amount of stool is noted within the large bowel. IMPRESSION: Satisfactory appearance of bilateral nephroureteral stents. ACT 112: Negative or not required by law. Electronically signed by: Sathya Goldman M.D. 02/27/2023 6:16 PM Code Status & VTE Plan Code Status Full code Supervising Physician Co-Signing Physician Notes I personally saw and examined the patient. I verified all ellsworth points and agree with Yoandy Qureshi PA-C with the following exceptions and/or additions: 78 year old male presents to the ER with generalized weakness. Recent cystoscopy performed yesterday for bladder cancer surveillance. Woke up today with generalized weakness, chills and fatigue. Unable to get up from bed to get around. No facial droop or new one sided symptoms. He notes chronically his left lower extremity is weaker than his right. O/E A&Ox3, HS increased rate, no murmurs, Chest CTAB, Abdo suprapubic tenderness, khan catheter in place with significant sediment, no gross hematuria, no CVA tenderness, Lipoma left upper back. A/P UTI sepsis - no CVA tenderness. No history of pseudomonas. History of Tati glabrata with significant sediment in urine. IV ceftriaxone. Follow up urine and blood cultures. Lactate 3.6 -> 1.5. Normal saline 1L bolus given in ER (2 ordered but second cancelled in favor of Normosol). Additional 1L Normosol bolus. Continue maintenance fluids with normosol @ 80ml/hr. Consult urology. PG Care Time/CCT Total # of Minutes Spent Total Time Spent with Patient: Total time spent is greater than 50% in coordination of care (as documented) at patient's floor/unit and/or counseling patient: Coding [place] [address] INT INP/OBS CARE 3/75MIN Patient Type Established Medical Decision Making High Complexity Diagnoses UTI (urinary tract infection) N39.0 Sepsis A41.9 Bladder cancer C67.9 Hematuria R31.9 ARF (acute renal failure) N17.9 PAF (paroxysmal atrial fibrillation) I48.0
[2023-02-27] MEDS: SODIUM CHLORIDE 0.9% 1,000 ML IV SCH ×2 (18:55→20:12)
[2023-02-27 19:35] LABS: Adenovirus PCR Not Detected (NotDetected); Bordetella parapertussis PCR Not Detected (NotDetected); Bordetella pertussis PCR Not Detected (NotDetected); Chlamydia pneumoniae PCR Not Detected (NotDetected); Coronavirus 229E PCR Not Detected (NotDetected); Coronavirus CoV-2 (COVID19)PCR Not Detected (NotDetected); Coronavirus HKU1 PCR Not Detected (NotDetected); Coronavirus NL63 PCR Not Detected (NotDetected); Coronavirus OC43PCR Not Detected (NotDetected); Human Metapneumovirus PCR Not Detected (NotDetected); Influenza A PCR Not Detected (NotDetected); Influenza B PCR Not Detected (NotDetected); Mycoplasma pneumoniae PCR Not Detected (NotDetected); Parainfluenza Virus 1 PCR Not Detected (NotDetected); Parainfluenza Virus 2 PCR Not Detected (NotDetected); Parainfluenza Virus 3 PCR Not Detected (NotDetected); Parainfluenza Virus 4 PCR Not Detected (NotDetected); Respiratory Syncytial VirusPCR Not Detected (NotDetected); Rhinovirus/Enterovirus PCR Not Detected (NotDetected)
[2023-02-27] MEDS: PLASMA-LYTE A 1,000 ML IV SCH (22:49)
[2023-02-28 08:31] LABS: A calco-baum cmplx NotReported Not Detected (NotDetected); Bact fragilis Not Reported Not Detected (NotDetected); C auris Not Reported Not Detected (NotDetected); CTX-M Resistant Gene Not Detected (NotDetected); Calbicans Not Reported Not Detected (NotDetected); Candida glabrata Not Reported Not Detected (NotDetected); Candida krusei Not Reported Not Detected (NotDetected); Cneoformans/gatti Not Reported Not Detected (NotDetected); Cparapsilosis Not Reported Not Detected (NotDetected); E cloacae compx Not Reported Not Detected (NotDetected); Efaecalis Not Reported Not Detected (NotDetected); Efaecium Not Reported Not Detected (NotDetected); Enterobacterales DETECTED (NotDetected); Enterobacterales Not Reported DETECTED (NotDetected); Escherichia coli Not Reported Not Detected (NotDetected); H influenzae Not Reported Not Detected (NotDetected); IMP Resistant Gene Not Detected (NotDetected); K aerogenes Not Reported Not Detected (NotDetected); KPC Resistant Gene Not Detected (NotDetected); Koxytoca Not Reported Not Detected (NotDetected); Kpneumoniae grp Not Reported DETECTED (NotDetected); Lmonocyt Not Reported Not Detected (NotDetected); N meningitidis Not Reported Not Detected (NotDetected); NDM Resistant Gene Not Detected (NotDetected); OXA 48 Like Resistant Gene Not Detected (NotDetected); P aeruginosa Not Reported Not Detected (NotDetected); Proteus spp Not Reported Not Detected (NotDetected); Salmonella spp Not Reported Not Detected (NotDetected); Smarcescens Not Reported Not Detected (NotDetected); Staph lugdunensis Not Reported Not Detected (NotDetected); Staph spp. Not Reported Not Detected (NotDetected); Staphaureus Not Reported Not Detected (NotDetected); Staphepi Not Reported Not Detected (NotDetected); Stenmaltophilia Not Reported Not Detected (NotDetected); Strep agal(GrpB) Not Reported Not Detected (NotDetected); Strep pneum Not Reported Not Detected (NotDetected); Strep pyog (GrpA) Not Reported Not Detected (NotDetected); Strep spp Not Reported Not Detected (NotDetected); VIM Resistant Gene Not Detected (NotDetected); mcr-1 Colistin Resistant Gene Not Detected (NotDetected)
[2023-02-28 08:36] LABS: Calcium 7.8 mg/dl (8.6-10.3); Potassium 3.7 mmol/L (3.5-5.1)
[2023-02-28 08:39] LABS: Klebsiella pneumoniae group DETECTED (NotDetected)
[2023-02-28 08:41] LABS: BUN Creatinine Ratio 15.7 (10-20); Est GFR (African American) 34.4 ml/min; Est GFR (Non-African American) 29.7 ml/min
[2023-02-28] MEDS: METOPROLOL SUCC 50MG EXT REL TAB PO SCH (09:27)
[2023-02-28] MEDS: amLODIPine BESYLATE 5 MG TAB PO SCH (09:28)
[2023-02-28] MEDS: FERROUS SULFATE 325 MG TAB PO SCH ×2 (09:28→16:58)
[2023-02-28] MEDS: ATORVASTATIN 40 MG TAB PO SCH (09:28)
[2023-02-28] MEDS: FINASTERIDE 5 MG TAB PO SCH (09:29)
[2023-02-28 09:38] LABS: Basophils # (auto) 0.03 K/uL (0.00-0.20); Basophils % (auto) 0.3 %; Echinocytes 1+; Hematocrit (blood only) 35.9 % (42.0-52.0); Hemoglobin 11.5 g/dl (14.0-18.0); Immature Granulocytes # (auto) 0.06 K/uL (0.01-0.20); Immature Granulocytes % (auto) 0.6 %; Lymphocytes # (auto) 1.24 K/uL (1.20-3.40); Lymphocytes % (auto) 12.2 %; Mean Corpuscular Hemoglobin 29.8 pg (25.0-34.0); Monocytes # (auto) 0.49 K/uL (0.11-0.59); Monocytes % (auto) 4.8 %; Neutrophils # (auto) 8.35 K/uL (1.40-6.50); Neutrophils % (auto) 82.1 %; Ovalocytes 1+; Platelet Estimate Normal (Normal); RDW Coefficient of Variation 13.8 % (11.5-14.5); RDW Standard Deviation 46.7 fL (36.4-46.3); Red Blood Count 3.86 M/uL (4.70-6.10); White Blood Count 10.29 K/ul (4.8-10.8)
--- NOTE | 2023-02-28 09:38 | Hospitalist Progress Note ---
Date of Service February 28, 2023 Assessment & Plan (1) UTI (urinary tract infection): Plan: Complicated in setting of cystoscopy, now with known bacteremia IV ceftriaxone 2g daily Continue inpatient admission pending full identification of bacteria Appreciate urology input - no intervention (2) Sepsis: Plan: Secondary to urinary source GNB in both blood and urine cultures - given clinical improvement and WBC decreasing will continue on IV ceftriaxone (3) Bladder cancer: Plan: S/p TURBT x2 Cystoscopy on 02/26 Appreciate urology assistance (4) Hematuria: Plan: Mostly sediment rather than gross hematuria in khan. Hgb 13.0-> 11.5, suspect more filutional than significant drop this appears to be closer to his baseline. Ok to restart Eliquis/clopidogrel (5) PAF (paroxysmal atrial fibrillation): Plan: Continue metoprolol Restart Eliquis Plan VTE Prophylaxis - Eliquis Diet - heart healthy Disposition - continue on med/tele Admission and Anticipated Discharge Date Admission Date: February 27, 2023 Subjective Reports feeling much improved from yesterday. No longer having fever/chills. No longer having suprapubic pain. Khan catheter still with sediment but draining well. No gross hematuria. Review of Systems Review of Systems: All systems reviewed & are unremarkable except as noted in HPI & below Physical Exam Constitutional: well developed; + not well nourished and no acute distress ENMT: Mouth: oral mucous membranes not dry Respiratory: normal respiratory effort, lungs clear to auscultation Cardiovascular: RRR, no murmur, no edema Gastrointestinal (Abdomen): normal bowel sounds, soft, nontender, no hepatosplenomegaly Skin: no rashes, warm and dry Neurologic: moves all extremities and awake; not confused Psychiatric: A+Ox3, euthymic affect Genitourinary: no CVA tenderness Results & Data Results & Data Vital Signs (Past 12 Hours) Vital Signs Temp Pulse Pulse Resp BP Pulse Ox O2 Del Method 02/28/23 07:53 66 02/28/23 07:37 37.3 C 66 20 159/72 H 96 Room Air 02/27/23 22:29 89 02/27/23 22:10 37.8 C H 96 H 22 199/80 H 97 Room Air 02/27/23 22:33 Room Air 02/27/23 22:33 37.8 C H 96 H 22 199/80 H 97 Room Air PG Care Time/CCT Total # of Minutes Spent Total Time Spent with Patient: Total time spent is greater than 50% in coordination of care (as documented) at patient's floor/unit and/or counseling patient: Coding Level of Care Code 65219 SUB INP/OBS CARE 2/35MIN Diagnoses UTI (urinary tract infection) N39.0 Sepsis A41.9 Bladder cancer C67.9 Hematuria R31.9 PAF (paroxysmal atrial fibrillation) I48.0
[2023-02-28] MEDS: PLASMA-LYTE A 1,000 ML IV SCH ×2 (11:15→22:17)
--- NOTE | 2023-02-28 13:25 | Electrocardiogram Report ---
Test Reason : Blood Pressure : / mmHG Vent. Rate : 082 BPM Atrial Rate : 082 BPM P-R Int : 140 ms QRS Dur : 088 ms QT Int : 396 ms P-R-T Axes : 066 030 047 degrees QTc Int : 462 ms Normal sinus rhythm Diffuse Nonspecific T wave abnormality Prolonged QT Abnormal ECG When compared with ECG of 20-DEC-2022 10:31, No significant change was found Confirmed by Kevin Kern ([id number]) on 02/28/2023 1:25:18 PM Referred By: REFERRED SELF Confirmed By:Kevin Kern
--- NOTE | 2023-02-28 13:55 | Urology Consultation ---
Date of Consultation February 28, 2023 Assessment & Plan (1) Sepsis: (2) Acute UTI: (3) Ureteral stent present: (4) Bladder cancer: Plan 78yo/M with a history of bladder cancer and chronic bilateral ureteral stents who presented with generalized weakness and admitted with sepsis/UTI. Afebrile and hemodynamically stable. Labs today reviewed -WBC 10.29, hemoglobin 11.5, creatinine 2.1. Urine and blood cultures are preliminary gram-negative bacilli. On ceftriaxone. Kennedy intact, draining clear yellow urine with sediment. Continue to monitor. Okay to hand irrigate as needed. KUB on arrival demonstrated satisfactory positioning of the bilateral ureteral stents. No urological intervention planned at this time. Patient is currently scheduled on 03/11 for bilateral ureteral stent exchange with possible biopsy and fulguration pending findings. If he remains inpatient on IV antibiotics through the weekend and is medically optimized, will consider possible procedure on Sunday 03/04 for stent exchange and poss biopsy/fulguration with . We will also plan to obtain updated CT abdomen pelvis imaging prior to procedure. Continue antibiotics and tailor as culture data becomes available. Continue supportive care. Urology will follow. Plan of care reviewed with Dr. Krishnamurthy. History of Present Illness Attending Physician: Srini Grace MD History of Present Illness 78-year-old male with PMH of bladder cancer s/p TURBT x2, bilateral ureteral stents with last exchange (11/29/22), anemia, recurrent UTI, BPH, colon polyps, CAD s/p stent, HTN, HLD, and afib who presented to the ED with generalized weakness. Patient underwent office cystoscopy with Dr. Krishnamurthy on 02/26/2023. He woke up the following morning 02/27 with generalized weakness. On arrival to the ED, he had a temp of 38.2 and was hypertensive at 199/80. Labs notable for a leukocytosis of 14.99, hemoglobin 13, and creatinine 2.1. Urinalysis with 3+ blood, negative nitrite, 3+ LE, 4+ bacteria. KUB demonstrated satisfactory positioning of the bilateral ureteral stents. Kennedy catheter placed in the ED. ED course: IVF, Rocephin, Tylenol. Admitted to medicine for continued care and management. Well-known to the urology service, follows with Dr. Krishnamurthy. He was recently seen in the urology office on 02/26/[address] Krishnamurthy and underwent cystoscopy for bladder cancer surveillance. At that time, he was able to void following catheter removal and was sent home without a catheter. He was scheduled for cystoscopy, bilateral ureteral stent exchange and possible biopsy and fulguration in the OR with Dr. Krishnamurthy on 03/11/2023. Patient examined at bedside today. Awake, resting in bed on arrival. No acute distress. Kennedy intact, draining clear urine with sediment. He denies any pain or discomfort at present. Denies fevers, chills, nausea, vomiting. Allergies Allergy/AdvReac Type Severity Reaction Status Date / Time No Known Allergies Allergy Verified 02/27/23 17:08 Home Medications Medication Instructions Recorded Confirmed Type atorvastatin 80 mg tablet 80 mg PO QAM #90 tabs 07/09/22 02/27/23 Rx amlodipine 10 mg tablet 10 mg PO QAM 09/14/22 02/27/23 History finasteride 5 mg tablet 5 mg PO DAILY #30 tabs 10/02/22 02/27/23 Rx Bedside Commode #1 ea 12/19/22 02/27/23 Rx clopidogrel 75 mg tablet 75 mg PO QAM 12/20/22 02/27/23 History acetaminophen 325 mg tablet 650 mg PO Q4H PRN fever or pain #1 12/26/22 02/27/23 Rx tab ferrous sulfate 325 mg (65 mg 325 mg PO BIDM #60 tabs 12/26/22 02/27/23 Rx iron) tablet,delayed release metoprolol succinate 200 mg 200 mg PO QAM 02/12/23 02/27/23 History tablet,extended release 24 hr (Toprol XL) apixaban 5 mg tablet (Eliquis) 5 mg PO BID #180 tabs 02/19/23 02/27/23 Rx Patient History Medical History (Updated 02/28/23 @ 14:15 by AMBER Burroughs) Abdominal pain Acute hyperkalemia Acute kidney injury Acute renal failure Acute urinary retention KENDRICK (acute kidney injury) Ambulatory dysfunction ARF (acute renal failure) Arthritis of knee, left Benign enlargement of prostate Bladder cancer newly diagnosed 08/2022. Bladder tumor CAD (coronary artery disease) "Multi-Vessel CAD s/p Ostial and Proximal LAD NEVA x 2 and OM1 NEVA 07/01/2018 (with residual borderline D2 stenosis, OM2 stenosis, RCA/PDA stenoses which are felt amenable to complex PCI" follows with [place] [facility] Chest tightness Constipation Dehydration Diabetes mellitus, type 2 NIDDM Dyslipidemia Elevated troponin Encounter for pre-operative examination Epigastric abdominal pain Fall Folate deficiency Generalized weakness Hematuria Hematuria History of colon polyps History of femur fracture Hydronephrosis Hyperkalemia Hyperkalemia, diminished renal excretion Hypertension Hypomagnesemia Hyponatremia Joint pain, knee Leukocytosis Low back pain Microscopic hematuria Multi-vessel coronary artery stenosis Myocardial Infarction ~3 years ago. follows with Erik Beltran. PAF (paroxysmal atrial fibrillation) Palpitations Physical deconditioning Tubular adenoma of colon Urinary retention Urinary tract infection Weakness Weakness Surgical History H/O colonoscopy 08/2016, repeat 5 yrs History of cardiac cath ~3 years ago, "failed stress test, needed cath", [place] History of open reduction and internal fixation (ORIF) procedure Lt. Femur S/P ureteral stent placement Stented coronary artery ~3 years ago, [facility], following cath at [facility], x1 stent (resolut summer) placed; now f/u Luis Manuel Beltran PA-C, [facility] Cardio. Family History Father Non-Hodgkin's lymphoma Mother Multiple myeloma Sister Dyslipidemia Heart disease Hypertension Uncle Myocardial infarction Other No family history of adverse response to anesthesia Denies family history of Ovarian cancer Prostate cancer Breast cancer Colorectal cancer Social History Smoking Status: Former smoker Second Hand Exposure: No; Do You Dip or Chew Tobacco: No; Hx Alcohol Use: No Hx Substance Use: No Preferred Language: Turkish Communication Ability: Effective Visual Impairment: Limited Hearing Ability: Normal Statistical Typist Required: No Beliefs That Will Affect Care: None marital status: Single Current Living Situation: Alone current occupational status: retired How many Children do You have: 0 Other Information That Helps Us Care for You: No Feels Safe at Home: Yes Safety Concerns: Feels Safe At This Time Childhood Exposure to Second-Hand Smoke: Yes caffeine: Yes Dental Care, Regularly: Yes Physical Activity Frequency: Daily Seatbelt Use: always Sunscreen Use: Yes Assistive Devices: Cane, Glasses and Walker Review of Systems Review of Systems: All systems reviewed & are unremarkable except as noted in HPI & below Physical Exam Constitutional: no acute distress Neck: normal visual inspection Respiratory: no respiratory distress and no labored breathing Gastrointestinal (Abdomen): Percussion/Palpation: abdomen soft; abdomen nontender Musculoskeletal: Head/Neck/Chest: normocephalic Skin: No visible rashes or lesions to exposed skin areas Neurologic: moves all extremities and awake Psychiatric: Orientation: alert and cooperative Genitourinary: Kennedy intact, urine is clear yellow with sediment Results & Data Vital Signs (Past 12 Hours) Vital Signs Temp Pulse Pulse Resp BP Pulse Ox O2 Del Method 02/28/23 11:31 37.5 C 73 17 150/73 H 98 Room Air 02/28/23 11:19 Room Air 02/28/23 07:53 66 02/28/23 07:37 37.3 C 66 20 159/72 H 96 Room Air PG Care Time/CCT Total # of Minutes Spent Total Time Spent with Patient: Total time spent is greater than 50% in coordination of care (as documented) at patient's floor/unit and/or counseling patient: Coding Level of Care Code 37085 INT INP/OBS CARE 2/55MIN Diagnoses Sepsis A41.9 Acute UTI N39.0 Ureteral stent present Z96.0 Bladder cancer C67.9
[2023-02-28] MEDS: cefTRIAXone SODIUM 2,000 MG in DEXTROSE 5 % MINI-B 50 ML IV SCH (16:58)
[2023-02-28] MEDS: ACETAMINOPHEN 325 MG TAB PO PRN (20:41)
[2023-02-28] MEDS: APIXABAN 5 MG TABLET PO SCH (20:42)
[2023-03-01] MEDS: APIXABAN 5 MG TABLET PO SCH ×2 (08:37→22:10)
[2023-03-01] MEDS: METOPROLOL SUCC 50MG EXT REL TAB PO SCH (08:37)
[2023-03-01] MEDS: FINASTERIDE 5 MG TAB PO SCH (08:37)
[2023-03-01] MEDS: amLODIPine BESYLATE 5 MG TAB PO SCH (08:37)
[2023-03-01] MEDS: ATORVASTATIN 40 MG TAB PO SCH (08:37)
[2023-03-01] MEDS: FERROUS SULFATE 325 MG TAB PO SCH ×2 (08:37→17:05)
[2023-03-01] MEDS: CLOPIDOGREL BISULFATE 75 MG TAB PO SCH (10:11)
[2023-03-01 11:04] LABS: Basophils # (auto) 0.02 K/uL (0.00-0.20); Basophils % (auto) 0.2 %; Eosinophils # (auto) 0.01 K/uL (0.00-0.50); Eosinophils % (auto) 0.1 %; Hemoglobin 10.6 g/dl (14.0-18.0); Immature Granulocytes # (auto) 0.04 K/uL (0.01-0.20); Immature Granulocytes % (auto) 0.5 %; Lymphocytes # (auto) 0.69 K/uL (1.20-3.40); Lymphocytes % (auto) 8.3 %; Mean Corpuscular Hemoglobin 29.3 pg (25.0-34.0); Mean Corpuscular Hgb Conc 33.1 g/dL (32.0-36.0); Mean Corpuscular Volume 88.4 fL (80.0-100.0); Mean Platelet Volume 11.2 fL (9.4-12.4); Monocytes # (auto) 0.28 K/uL (0.11-0.59); Monocytes % (auto) 3.4 %; Neutrophils # (auto) 7.23 K/uL (1.40-6.50); Neutrophils % (auto) 87.5 %; Platelet Count 120 K/uL (130-400); RDW Coefficient of Variation 13.4 % (11.5-14.5); RDW Standard Deviation 43.4 fL (36.4-46.3); Red Blood Count 3.62 M/uL (4.70-6.10); White Blood Count 8.27 K/ul (4.8-10.8)
[2023-03-01 11:05] LABS: BUN Creatinine Ratio 18.9 (10-20); Creatinine Clr Calc Pharmacy 32.6 ml/min; Est GFR (African American) 41.4 ml/min; Est GFR (Non-African American) 35.8 ml/min; Potassium 3.6 mmol/L (3.5-5.1)
--- NOTE | 2023-03-01 14:31 | Urology Progress Note ---
Date of Service March 01, 2023 Assessment & Plan (1) Sepsis: (2) Acute UTI: (3) Ureteral stent present: (4) Bladder cancer: Plan 78yo/M with a history of bladder cancer and chronic bilateral ureteral stents who presented with generalized weakness and admitted with sepsis/UTI. Afebrile and hemodynamically stable. Labs today reviewed -WBC 8.27, hemoglobin 10.6, creatinine 1.8. Continue to trend. Urine culture grew Klebsiella. Blood cultures are preliminary gram-negative bacilli. On ceftriaxone. Kennedy intact, draining clear yellow urine with sediment. Continue to monitor. Okay to hand irrigate as needed. KUB on arrival demonstrated satisfactory positioning of the bilateral ureteral stents. Patient is currently scheduled on 03/11 for bilateral ureteral stent exchange with possible biopsy and fulguration pending findings. If he remains inpatient on IV antibiotics through the weekend and is medically optimized, will consider possible procedure on Sunday 03/04 for stent exchange and poss biopsy/fulguration with . We will also plan to obtain updated CT abdomen pelvis imaging prior to possible procedure Saturday. Continue antibiotics and tailor as culture data becomes available. Continue supportive care. Okay to continue anticoagulation through the per Dr. Krishnamurthy on hold Saturday morning. Discussed with hospital team. Urology will follow. Admission and Anticipated Discharge Date Admission Date: February 27, 2023 Subjective Patient examined at bedside this AM. Awake, resting in bed on arrival. No acute distress. Overall feeling better. Denies any pain or discomfort at present Denies fever, chills, nausea, vomiting. Kennedy catheter intact, drain clear yellow urine with sediment. Review of Systems Constitutional: as per Subjective / HPI Gastrointestinal: as per Subjective / HPI Genitourinary: + as per Subjective / HPI Physical Exam Constitutional: no acute distress Respiratory: no respiratory distress and no labored breathing Neurologic: awake Psychiatric: Orientation: alert and oriented x 3 Genitourinary: Kennedy catheter intact, draining clear yellow urine with sediment Results & Data Vital Signs (Past 12 Hours) Vital Signs Temp Pulse Pulse Resp BP Pulse Ox O2 Del Method 03/01/23 08:06 36.9 C 69 16 113/64 90 Room Air 03/01/23 03:57 36.7 C 61 18 133/60 97 Room Air 03/01/23 02:03 Room Air 03/01/23 01:00 66 02/28/23 23:59 36.5 C 62 16 141/60 H 97 Room Air PG Care Time/CCT Total # of Minutes Spent Total Time Spent with Patient: Total time spent is greater than 50% in coordination of care (as documented) at patient's floor/unit and/or counseling patient: Coding Level of Care Code 66236 SUB INP/OBS CARE 2/35MIN Diagnoses Sepsis A41.9 Acute UTI N39.0 Ureteral stent present Z96.0 Bladder cancer C67.9
[2023-03-01] MEDS: cefTRIAXone SODIUM 2,000 MG in DEXTROSE 5 % MINI-B 50 ML IV SCH (17:05)
--- NOTE | 2023-03-01 18:59 | Hospitalist Progress Note ---
Date of Service March 01, 2023 Assessment & Plan (1) UTI (urinary tract infection): Plan: Complicated in setting of cystoscopy due to Klebsiella pneumoniae IV ceftriaxone 2g daily Recommend additional day of IV antibiotics and medically stable for discharge tomorrow however requiring inpatient rehabilitation. Given he would be here over the weekend urology planning on procedure on Saturday. Discussed whether we need to hold Eliquis and clopidogrel with [facility] and will defer holding these if necessary to urology. (2) Bacteremia due to Klebsiella pneumoniae: Plan: Continue IV ceftriaxone (3) Sepsis: Plan: Secondary to urinary source (4) Bladder cancer: Plan: S/p TURBT x2 Cystoscopy on 02/26 Appreciate urology assistance (5) Hematuria: Plan: Continue to monitor hemoglobin on Eliquis and Clopidogrel. (6) PAF (paroxysmal atrial fibrillation): Plan: Continue metoprolol Continue Eliquis Remains in normal sinus rhythm on telemetry, no need to continue on telemetry at this time. Plan VTE Prophylaxis - Eliquis Diet - heart healthy Disposition - stable for transfer to med/surg Admission and Anticipated Discharge Date Admission Date: February 27, 2023 Subjective Continues to improve daily. he reports having physical therapy this morning and does not feel safe to return home at this time. Physical therapy recommending acute physical rehabilitation. Discussed with urology and planning on possible procedure on Saturday for stent exchange and possible biopsy if he is still here which I suspect at this point he will be since he requires placement. Review of Systems Review of Systems: All systems reviewed & are unremarkable except as noted in HPI & below Physical Exam Constitutional: well developed; + not well nourished and no acute distress ENMT: Mouth: oral mucous membranes not dry Respiratory: normal respiratory effort, lungs clear to auscultation Cardiovascular: RRR, no murmur, no edema Gastrointestinal (Abdomen): normal bowel sounds, soft, nontender, no hepatosplenomegaly Skin: no rashes, warm and dry Neurologic: moves all extremities and awake; not confused Psychiatric: A+Ox3, euthymic affect Genitourinary: no CVA tenderness Results & Data Results & Data Vital Signs (Past 12 Hours) Vital Signs Temp Pulse Resp BP Pulse Ox O2 Del Method 03/01/23 15:46 37.0 C 67 16 143/63 H 94 Room Air 03/01/23 11:57 36.9 C 69 18 108/68 92 Room Air 03/01/23 08:06 36.9 C 69 16 113/64 90 Room Air PG Care Time/CCT Total # of Minutes Spent Total Time Spent with Patient: Total time spent is greater than 50% in coordination of care (as documented) at patient's floor/unit and/or counseling patient: Coding Level of Care Code 92911 SUB INP/OBS CARE 235MIN Diagnoses UTI (urinary tract infection) N39.0 Bacteremia due to Klebsiella pneumoniae R78.81; B96.1 Sepsis A41.9 Bladder cancer C67.9 Hematuria R31.9 PAF (paroxysmal atrial fibrillation) I48.0
[2023-03-02 06:34] LABS: Basophils # (auto) 0.03 K/uL (0.00-0.20); Basophils % (auto) 0.5 %; Eosinophils # (auto) 0.02 K/uL (0.00-0.50); Eosinophils % (auto) 0.3 %; Hemoglobin 9.3 g/dl (14.0-18.0); Immature Granulocytes # (auto) 0.03 K/uL (0.01-0.20); Immature Granulocytes % (auto) 0.5 %; Lymphocytes # (auto) 0.96 K/uL (1.20-3.40); Lymphocytes % (auto) 15.3 %; Mean Corpuscular Hemoglobin 29.1 pg (25.0-34.0); Mean Corpuscular Hgb Conc 32.1 g/dL (32.0-36.0); Mean Corpuscular Volume 90.6 fL (80.0-100.0); Monocytes # (auto) 0.38 K/uL (0.11-0.59); Neutrophils # (auto) 4.87 K/uL (1.40-6.50); Neutrophils % (auto) 77.4 %; Platelet Count 123 K/uL (130-400); RDW Coefficient of Variation 13.3 % (11.5-14.5); RDW Standard Deviation 44.4 fL (36.4-46.3); White Blood Count 6.29 K/ul (4.8-10.8)
[2023-03-02 07:11] LABS: BUN Creatinine Ratio 18.4 (10-20); Calcium 7.8 mg/dl (8.6-10.3); Creatinine Clr Calc Pharmacy 33.8 ml/min; Est GFR (African American) 43.2 ml/min; Est GFR (Non-African American) 37.3 ml/min; Potassium 3.6 mmol/L (3.5-5.1)
[2023-03-02] MEDS: ATORVASTATIN 40 MG TAB PO SCH (08:03)
[2023-03-02] MEDS: CLOPIDOGREL BISULFATE 75 MG TAB PO SCH (08:03)
[2023-03-02] MEDS: APIXABAN 5 MG TABLET PO SCH ×2 (08:04→20:29)
[2023-03-02] MEDS: amLODIPine BESYLATE 5 MG TAB PO SCH (08:04)
[2023-03-02] MEDS: METOPROLOL SUCC 50MG EXT REL TAB PO SCH (08:04)
[2023-03-02] MEDS: FINASTERIDE 5 MG TAB PO SCH (08:04)
--- NOTE | 2023-03-02 09:28 | Urology Progress Note ---
Date of Service March 02, 2023 Assessment & Plan (1) Sepsis: (2) Acute UTI: (3) Ureteral stent present: (4) Bladder cancer: Plan 78yo/M with a history of bladder cancer and chronic bilateral ureteral stents who presented with generalized weakness and admitted with sepsis/UTI. Creatinine and leukocytosis have improved. Blood cultures and urine cultures showing Klebsiella pneumoniae. Should be adequately covered with ceftriaxone. Maintain Kennedy catheter for now. Tentative plan is for bilateral ureteral stent exchange on 03/04/[address] abdomen pelvis to be performed on Saturday to reevaluate prior to procedure on Saturday. Okay to continue anticoagulation through the weekend per Dr. Krishnamurthy on hold Saturday morning. Admission and Anticipated Discharge Date Admission Date: February 27, 2023 Subjective Feeling well Denies any fevers or chills Tolerating a diet with no nausea or vomiting Working on increasing his leg strength Review of Systems Review of Systems: 12 point review of systems negative except for otherwise indicated. Physical Exam Physical Exam: Well-appearing, NAD Results & Data Vital Signs (Past 12 Hours) Vital Signs Temp Pulse Resp BP Pulse Ox O2 Del Method 03/02/23 07:33 37.5 C 65 16 137/66 95 Room Air 03/01/23 22:45 37.3 C 67 16 147/71 H 96 Room Air 03/01/23 23:00 Room Air PG Care Time/CCT Total # of Minutes Spent Total Time Spent with Patient: Total time spent is greater than 50% in coordination of care (as documented) at patient's floor/unit and/or counseling patient: Coding Level of Care Code 46180 SUB INP/OBS CARE 1/25MIN Diagnoses Sepsis A41.9 Acute UTI N39.0 Ureteral stent present Z96.0 Bladder cancer C67.9
[2023-03-02] MEDS: FERROUS SULFATE 325 MG TAB PO SCH ×2 (09:34→17:07)
--- NOTE | 2023-03-02 15:19 | Hospitalist Progress Note ---
Date of Service March 02, 2023 Assessment & Plan (1) UTI (urinary tract infection): Plan: Complicated in setting of cystoscopy due to Klebsiella pneumoniae IV ceftriaxone 2g daily Medically stable for discharge however requiring inpatient rehabilitation. Given he would be here over the weekend urology planning on bilateral ureteral stent exchange procedure on Friday 03/02 CT A/P scheduled 03/03 for pre-procedural planning Continue Eliquis/clopidogrel through weekend and hold Saturday morning. (2) Bacteremia due to Klebsiella pneumoniae: Plan: Continue IV ceftriaxone Repeat BCx 03/03 AM to reassess (3) Sepsis: Plan: Secondary to urinary source (4) Bladder cancer: Plan: S/p TURBT x2 Cystoscopy on 02/26 Appreciate urology assistance (5) Hematuria: Plan: Continue to monitor hemoglobin on Eliquis and Clopidogrel (6) PAF (paroxysmal atrial fibrillation): Plan: Continue metoprolol Continue Eliquis Remains in normal sinus rhythm on telemetry, no need to continue on telemetry at this time. (7) Anemia: Plan: Hemoglobin initially 13.0 on admission, now down trended to 9.3 in setting of Eliquis and clopidogrel use and hematuria. Has had anemia intermittently in the past. Will continue to monitor this for now Plan VTE Prophylaxis - Eliquis Diet - heart healthy Disposition - stable for transfer to med/surg Admission and Anticipated Discharge Date Admission Date: February 27, 2023 Subjective Overall doing well, no acute concerns this morning. Awaiting his stent exchange for Saturday. Denies any fevers/chills, chest pains, shortness of breath, lightheadedness/dizziness. Denies any abdominal discomfort. Has his Kennedy in place without any concerns. Does report overall feeling deconditioned. Review of Systems Review of Systems: Per subjective Physical Exam Physical Exam: General: Well-appearing, NAD Cardiovascular: RRR, no M/R/G Pulmonary: Slightly diminished breast sounds, CTAB, no W/R/R Abdomen: Soft, NT/ND, no guarding : Kennedy draining clear yellow urine Extremities: Moving all extremities, no pedal edema Integumentary: No suspicious rash or lesion on exposed skin Neurologic: AAOx3, no focal deficits Psychiatric: Appropriate mood/affect Results & Data Results & Data Vital Signs (Past 12 Hours) Vital Signs Temp Pulse Resp BP Pulse Ox O2 Del Method 10/21/23 15:11 37.1 C 57 L 16 147/66 H 95 Room Air 03/02/23 10:33 Room Air 03/02/23 07:33 37.5 C 65 16 137/66 95 Room Air Laboratory Results Reviewed CBC and BMPnotable for hemoglobin dropped to 9.3, and improved creatinine to 1.74 PG Care Time/CCT Total # of Minutes Spent Total Time Spent with Patient: Total time spent is greater than 50% in coordination of care (as documented) at patient's floor/unit and/or counseling patient: Coding Level of Care Code 10377 SUB INP/OBS CARE 235MIN Diagnoses UTI (urinary tract infection) N39.0 Bacteremia due to Klebsiella pneumoniae R78.81; B96.1 Sepsis A41.9 Bladder cancer C67.9 Hematuria R31.9 PAF (paroxysmal atrial fibrillation) I48.0 Anemia D64.9
[2023-03-02] MEDS: ACETAMINOPHEN 325 MG TAB PO PRN (20:40)
[2023-03-03] MEDS: CLOPIDOGREL BISULFATE 75 MG TAB PO SCH ×2 (07:58→09:22)
[2023-03-03] MEDS: FERROUS SULFATE 325 MG TAB PO SCH ×3 (07:58→17:43)
[2023-03-03] MEDS: FINASTERIDE 5 MG TAB PO SCH ×2 (07:58→09:22)
[2023-03-03] MEDS: APIXABAN 5 MG TABLET PO SCH ×3 (07:58→20:33)
[2023-03-03] MEDS: METOPROLOL SUCC 50MG EXT REL TAB PO SCH ×2 (07:58→09:22)
[2023-03-03] MEDS: ATORVASTATIN 40 MG TAB PO SCH ×2 (07:58→09:22)
[2023-03-03] MEDS: amLODIPine BESYLATE 5 MG TAB PO SCH ×2 (07:58→09:22)
[2023-03-03 08:32] LABS: Hematocrit (blood only) 36.3 % (42.0-52.0); Hemoglobin 11.7 g/dl (14.0-18.0); Mean Corpuscular Hgb Conc 32.2 g/dL (32.0-36.0); Mean Corpuscular Volume 90.1 fL (80.0-100.0); Mean Platelet Volume 11.5 fL (9.4-12.4); Platelet Count 157 K/uL (130-400); RDW Coefficient of Variation 13.5 % (11.5-14.5); Red Blood Count 4.03 M/uL (4.70-6.10); White Blood Count 8.16 K/ul (4.8-10.8)
--- NOTE | 2023-03-03 08:36 | Hospitalist Progress Note ---
Date of Service March 03, 2023 Assessment & Plan (1) COVID-19: Plan: Febrile overnight 03/02 to 03/03 with worsening respiratory symptoms Obtained respiratory bio fire panelpositive for COVID Oxygenating well on room air, will continue to monitor, no indication for rem/dex Communicated to covering urologist Dr. Ryan who will defer decision of whether or not to proceed with planned urologic procedure to Dr. Krishnamurthy Isolation CXR pending (2) UTI (urinary tract infection): Plan: Complicated in setting of cystoscopy due to Klebsiella pneumoniae IV ceftriaxone 2g daily Medically stable for discharge however requiring inpatient rehabilitation. Given he would be here over the weekend urology planning on bilateral ureteral stent exchange procedure on Friday 03/02 --> now COVID positive and communicated to covering urologist Dr. Ryan who will defer decision of whether or not to proceed with procedure to Dr. Krishnamurthy CT A/P scheduled 03/03 for pre-procedural planning - obtained, report pending Continue Eliquis/clopidogrel through and hold Saturday morning (3) Bacteremia due to Klebsiella pneumoniae: Plan: Continue IV ceftriaxone Repeat BCx 03/03 AM to reassess, pending (4) Sepsis: Plan: Secondary to urinary source As above (5) Bladder cancer: Plan: S/p TURBT x2 Cystoscopy on 02/26 Appreciate urology assistance (6) Hematuria: Plan: Continue to monitor hemoglobin on Eliquis and Clopidogrel (7) PAF (paroxysmal atrial fibrillation): Plan: Continue metoprolol Continue Eliquis Remains in normal sinus rhythm Plan VTE Prophylaxis - Eliquis Diet - heart healthy Disposition - stable for transfer to med/surg Admission and Anticipated Discharge Date Admission Date: February 27, 2023 Subjective Expressing frustration with his current situation and how weak he is this morning with passive SI though states he would not actually act upon it. Expressing frustrations with financial concerns. Febrile overnight with worsening respiratory symptoms including coughing and mild shortness of breath. Denies any chest pain or lightheadedness/dizziness. Kennedy in place without any significant concerns though nursing notes he does complain about it frequently. Review of Systems Review of Systems: Per subjective Physical Exam Physical Exam: General: Well-appearing, NAD Cardiovascular: RRR, no M/R/G Pulmonary: Slightly diminished breast sounds, mild scattered wheezing Abdomen: Soft, NT/ND, no guarding : Kennedy draining clear yellow urine Extremities: Moving all extremities, no pedal edema Integumentary: No suspicious rash or lesion on exposed skin Neurologic: AAOx3, no focal deficits Psychiatric: Appropriate mood/affect Results & Data Results & Data Vital Signs (Past 12 Hours) Vital Signs Temp Pulse Resp BP Pulse Ox O2 Del Method 03/03/23 07:30 38.2 C H 73 16 164/69 H 94 Room Air 03/02/23 22:12 37.7 C H Laboratory Results CBC and BMP reviewed todaynotable for hemoglobin increased back up to 11.7, normalization of sodium to 138, improved creatinine to 1.52. Respiratory bio fire panel positive for COVID PG Care Time/CCT Total # of Minutes Spent Total Time Spent with Patient: Total time spent is greater than 50% in coordination of care (as documented) at patient's floor/unit and/or counseling patient: Coding Level of Care Code 68329 SUB INP/OBS CARE 3/50MIN Diagnoses COVID-19 U07.1 UTI (urinary tract infection) N39.0 Bacteremia due to Klebsiella pneumoniae R78.81; B96.1 Sepsis A41.9 Bladder cancer C67.9 Hematuria R31.9 PAF (paroxysmal atrial fibrillation) I48.0
[2023-03-03 08:39] LABS: BUN Creatinine Ratio 17.8 (10-20); Calcium 8.6 mg/dl (8.6-10.3); Creatinine Clr Calc Pharmacy 38.7 ml/min; Est GFR (African American) 50.9 ml/min; Est GFR (Non-African American) 43.9 ml/min; Potassium 3.8 mmol/L (3.5-5.1)
[2023-03-03 10:40] LABS: Adenovirus PCR Not Detected (NotDetected); Bordetella parapertussis PCR Not Detected (NotDetected); Bordetella pertussis PCR Not Detected (NotDetected); Chlamydia pneumoniae PCR Not Detected (NotDetected); Coronavirus 229E PCR Not Detected (NotDetected); Coronavirus HKU1 PCR Not Detected (NotDetected); Coronavirus NL63 PCR Not Detected (NotDetected); Coronavirus OC43PCR Not Detected (NotDetected); Human Metapneumovirus PCR Not Detected (NotDetected); Influenza A PCR Not Detected (NotDetected); Influenza B PCR Not Detected (NotDetected); Mycoplasma pneumoniae PCR Not Detected (NotDetected); Parainfluenza Virus 1 PCR Not Detected (NotDetected); Parainfluenza Virus 2 PCR Not Detected (NotDetected); Parainfluenza Virus 3 PCR Not Detected (NotDetected); Parainfluenza Virus 4 PCR Not Detected (NotDetected); Respiratory Syncytial VirusPCR Not Detected (NotDetected); Rhinovirus/Enterovirus PCR Not Detected (NotDetected)
[2023-03-03 11:06] LABS: Coronavirus CoV-2 (COVID19)PCR DETECTED (NotDetected)
[2023-03-03] MEDS: cefTRIAXone SODIUM 2,000 MG in DEXTROSE 5 % MINI-B 50 ML IV SCH (13:19)
[2023-03-03] MEDS: ACETAMINOPHEN 325 MG TAB PO PRN (13:19)
--- NOTE | 2023-03-03 18:31 | CT Scan Report ---
CT abd pelvis wo con CLINICAL HISTORY: bladder cancer, bilateral ureteral stent TECHNIQUE: Helical axial images of the abdomen and pelvis were obtained. Automated dose lowering tech niques and/or adjustment according to patient size were utilized for this exam. This exam was perfor med without intravenous contrast. CT DOSE: 802.22 mGy.cm COMPARISON: Comparison is made to CT abdomen pelvis 12/20/2022 FINDINGS: Lower chest: Small bilateral pleural effusions are seen. Liver: Unremarkable. No focal lesions are seen. Gallbladder and biliary tree: No calcified gallstones. Normal caliber wall. No intra- or extrahepatic biliary ductal dilation. Pancreas: Unremarkable, no focal lesions. Spleen: Splenule is incidentally noted. Adrenals: Unremarkable. Kidneys and ureters: Bilateral nephroureteral stents are seen. A small amount of gas is noted in the left collecting system which may be due to reflux through the stent. Minimal hydronephrosis is noted. Bladder: Bladder wall is thickened and the bladder is underdistended due to drainage by a Kennedy leslie ter. Reproductive organs: Prostatic calcifications are seen which may represent prior hemorrhage or granul omatous disease. Bowel: The appendix is normal. Lymph nodes Retroperitoneal: Subcentimeter lymph nodes are noted. Pelvic: Unremarkable. Mesenteric: Unremarkable. Peritoneum: Mild fat stranding is noted in the peritoneum. Vessels: Atherosclerotic calcifications are seen. Abdominal wall: Unremarkable. Bones: Degenerative changes in the visualized spine. Old malunited fracture of the left femur is note d. IMPRESSION: 1. No evidence of recurrent or metastatic disease. 2. Bladder wall thickening is seen on limited evaluation due to underdistention. 3. Bilateral nephroureteral stents are seen. Minimal hydronephrosis, significantly decreased from pr ior exam. 4. Subcentimeter retroperitoneal lymph nodes are similar in extent to prior exam. ACT 112: Negative or not required by law. Electronically signed by: Sathya Goldman M.D. 03/03/2023 6:29 PM
--- NOTE | 2023-03-03 19:25 | XRay Report ---
XR chest 1V portable CLINICAL HISTORY: cough TECHNIQUE: Single frontal radiograph of the chest was obtained. Comparison: Comparison is made to chest radiograph 02/27/2023 FINDINGS: No lines and tubes are seen. Calcified aortic knob is seen. The lungs are clear. No evidence of pleur al effusion or pneumothorax. IMPRESSION: No acute abnormalities and in particular no radiographic evidence of pneumonia. ACT 112: Negative or not required by law. Electronically signed by: Sathya Goldman M.D. 03/03/2023 7:24 PM
[2023-03-04 08:19] LABS: Hematocrit (blood only) 31.5 % (42.0-52.0); Hemoglobin 10.1 g/dl (14.0-18.0); Mean Corpuscular Hemoglobin 28.9 pg (25.0-34.0); Mean Corpuscular Hgb Conc 32.1 g/dL (32.0-36.0); Mean Corpuscular Volume 90.3 fL (80.0-100.0); Mean Platelet Volume 10.9 fL (9.4-12.4); Platelet Count 154 K/uL (130-400); RDW Coefficient of Variation 13.6 % (11.5-14.5); RDW Standard Deviation 44.8 fL (36.4-46.3); Red Blood Count 3.49 M/uL (4.70-6.10)
[2023-03-04] MEDS: METOPROLOL SUCC 50MG EXT REL TAB PO SCH (08:34)
[2023-03-04] MEDS: ATORVASTATIN 40 MG TAB PO SCH (08:34)
[2023-03-04] MEDS: FINASTERIDE 5 MG TAB PO SCH (08:34)
[2023-03-04] MEDS: FERROUS SULFATE 325 MG TAB PO SCH (08:35)
[2023-03-04] MEDS: amLODIPine BESYLATE 5 MG TAB PO SCH (08:35)
[2023-03-04 08:39] LABS: BUN Creatinine Ratio 14.3 (10-20); Calcium 8.1 mg/dl (8.6-10.3); Creatinine Clr Calc Pharmacy 38.2 ml/min; Est GFR (African American) 50.1 ml/min; Est GFR (Non-African American) 43.2 ml/min; Potassium 3.8 mmol/L (3.5-5.1)
--- NOTE | 2023-03-04 10:06 | Urology Progress Note ---
Date of Service March 04, 2023 Assessment & Plan (1) COVID-19: (2) UTI (urinary tract infection): (3) Ureteral stent present: Plan 78yo/M with a history of bladder cancer and chronic bilateral ureteral stents who presented with generalized weakness. Afebrile and hemodynamically stable. Labs today reviewed -WBC 5.30, hemoglobin 10.1, creatinine 1.54. Blood cultures and urine cultures showingKlebsiella pneumoniae. Kennedy intact, draining clear yellow urine with sediment. Continue to monitor. Okay to hand irrigate as needed. No plan for intervention at this time given recent Covid diagnosis. Okay to have a diet from urology standpoint. Patient recently diagnosed with Covid. UTI still possibility, however symptoms at presentation could have been related to Covid. At this point, will need to allow patient time signal wirer for recovery until proceeding with stent exchange. If patient were to develop fevers or other acute changes, can consider stent exchange at that time but ideally would wait until he is fully recovered if able. Continue supportive care and antibiotics. Urology will follow peripherally. Please contact us with any questions/concerns. Plan of care reviewed with Dr. Krishnamurthy, on-call urologist. Admission and Anticipated Discharge Date Admission Date: February 27, 2023 Subjective Patient examined at bedside this AM. On isolation for COVID. No acute distress. Kennedy draining clear yellow urine with sediment. Denies any pain or discomfort at present. Denies fevers, chills, nausea, vomiting this morning. He does express frustration with current situation and being in the hospital as well as financial concerns. Review of Systems Constitutional: as per Subjective / HPI Gastrointestinal: as per Subjective / HPI Genitourinary: + as per Subjective / HPI Physical Exam Constitutional: no acute distress Respiratory: no respiratory distress and no labored breathing Skin: No visible rashes or lesions to exposed skin areas Neurologic: awake Psychiatric: A+Ox3, euthymic affect Genitourinary: Kennedy catheter intact, draining clear yellow urine with sediment Results & Data Vital Signs (Past 12 Hours) Vital Signs Temp Pulse Resp BP Pulse Ox O2 Del Method 03/04/23 08:29 36.8 C 60 16 135/62 95 Room Air PG Care Time/CCT Total # of Minutes Spent Total Time Spent with Patient: Total time spent is greater than 50% in coordination of care (as documented) at patient's floor/unit and/or counseling patient: Coding Level of Care Code 20504 SUB INP/OBS CARE MIN Diagnoses COVID-19 U07.1 UTI (urinary tract infection) N39.0 Ureteral stent present Z96.0
[2023-03-04] MEDS ORDERED: CLOPIDOGREL BISULFATE 75 MG TAB PO SCH (12:45)
[2023-03-04] MEDS ORDERED: APIXABAN 5 MG TABLET PO SCH (12:45)
[2023-03-04] MEDS: cefTRIAXone SODIUM 2,000 MG in DEXTROSE 5 % MINI-B 50 ML IV SCH (12:45)
--- NOTE | 2023-03-04 13:19 | Discharge Summary ---
Discharge Summary Date of Service March 04, 2023 Notes For Next Care Provider Medication Changes From Visit Augmentin 875mg po bid x 9 more days Admission HPI Per Admitting Provider Neo is a 78-year-old male with PMH of complicated UTI and bladder cancer. He presents via EMS after being discharged from [facility] yesterday for cystoscopy for his bladder cancer. He reports that he woke up this morning and he is legs felt like "rubber". Too weak to walk. Fell when getting out of bed; no LOC; no head strike. Patient lives alone in a trailer home. He has had leg weakness in the past, but never to this extent (per patient, at [facility] 2 months ago for leg rehab). He reports that he did not take his morning medications. He did have his a catheter removed yesterday following procedure. Patient uses catheters at home, and mentions that he was recently taught the self catheterize. Patient is having surgery soon for urinary stent removal; planned for next week. He denies pain at present. He reports has not been drinking much water recently; dehydrated. Former tobacco cigarette smoker; quit in . Denies alcohol use in the past 4 years. Notes recent weight loss 160 --> 130lb in the past two months. Hypertensive at 199/80, and temp at 38.2 on arrival; vitals stabilized shortly after. ED course: Rocephin 2000mg IV, NSS 1000 mL + Plasmalyte 1000mL, acetaminophen 650 mg ROS: Patient endorses diarrhea burning with urination (cleared up this morning), dysuria, numbness/tingling down legs. Patient denies fever, chills, sweating, CP, SOB, adominal pain, N/V, urinary retention, saddle anesthesia, back pain, or blood in the urine or stool. Note: Patient mentioned he may have left his wallet in [facility]; unable to contact EMS Please see Dr. Grace's attestation for any changes to treatment plan. Principal Dx & Hospital Course #1 = Principal Diagnosis (1) Bacteremia due to Klebsiella pneumoniae: With sepsis and septicemia, POA 2/2 Klebsiella UTI with recent instrumentation, has bilat inswelling ureteral stents -received IV ceftriaxone and will dc to home on po Augmentin for total of 10 days of treatment since last negative BCxs on 03/03 Repeat BCx 03/03 no growth todate feeling better fever early AM 03/03 could be from COVID but could still be from resolving Klebsiella bacteremia no ureteral exchange while with COVID as per Urology-f/u as outpt (2) COVID-19: Febrile overnight 03/02 to 03/03 with worsening respiratory symptoms of cough but no hypoxia Obtained respiratory bio fire panelpositive for COVID Oxygenating well on room air, will continue to monitor, no indication for rem/dex; Paxlovid not good for him as interacts with ELiquis and risk not worth trying for mild disease CXR no PNA symptomatic treatment prn at home (3) UTI (urinary tract infection): Complicated in setting of cystoscopy due to Klebsiella pneumoniae as above (4) Sepsis: Secondary to urinary source and bacteremia As above (5) Bladder cancer: S/p TURBT x2 Cystoscopy on 02/26 Appreciate urology assistance (6) Hematuria: resolved stable on Eliquis and Clopidogrel (7) PAF (paroxysmal atrial fibrillation): Continue metoprolol Continue Eliquis Remains in normal sinus rhythm Plan VTE Prophylaxis - Eliquis Disposition - dc to home. PT recommended rehab but pt declines this and also declines home health as he reports he can drive himself and go to outpt PT Discharge Exam Constitutional WD/WN, vitals as above Respiratory normal respiratory effort, lungs clear to auscultation Cardiovascular RRR, no murmur, no edema Gastrointestinal (Abdomen) normal bowel sounds, soft, nontender, no hepatosplenomegaly Psychiatric A+Ox3, euthymic affect Genitourinary Kennedy in place Updated Medication List Medication Instructions Recorded Confirmed Type atorvastatin 80 mg tablet 80 mg PO QAM #90 tabs 07/09/22 02/27/23 Rx amlodipine 10 mg tablet 10 mg PO QAM 09/14/22 02/27/23 History finasteride 5 mg tablet 5 mg PO DAILY #30 tabs 10/02/22 02/27/23 Rx Bedside Commode #1 ea 12/19/22 02/27/23 Rx clopidogrel 75 mg tablet 75 mg PO QAM 12/20/22 02/27/23 History acetaminophen 325 mg tablet 650 mg PO Q4H PRN fever or pain #1 12/26/22 02/27/23 Rx tab ferrous sulfate 325 mg (65 mg 325 mg PO BIDM #60 tabs 12/26/22 02/27/23 Rx iron) tablet,delayed release metoprolol succinate 200 mg 200 mg PO QAM 02/12/23 02/27/23 History tablet,extended release 24 hr (Toprol XL) apixaban 5 mg tablet (Eliquis) 5 mg PO BID #180 tabs 02/19/23 02/27/23 Rx amoxicillin 875 mg-potassium 1 tab PO BID #18 tabs 03/04/23 Rx clavulanate 125 mg tablet Hospital Stay Data Consultations 02/27/23 17:48 ED Decision to Admit Stat 02/27/23 22:10 Consult Urology Routine Diagnostic Imagining Performed 03/03/23 08:00 CT abd pelvis wo con Routine Pending Results Patient Have Any Pending Studies at Discharge: Yes (Final repeat blood cultures- no growth to date) Discharge Instructions Given to Patient (Per Discharging Provider) Please finish out 9 more days of the antibiotics for your UTI and blood stream infection. Follow up with Dr. Krishnamurthy for your ureteral stent exchange. You were diagnosed with mild COVID-19 while here. There is no specific treatment that you need for this except supportive care. The oral medications available can interact with your Eliquis and it is not kay to stop taking your Eliquis for this as you have a mild case of COVID-19. If you have worsening symptoms such as shortness of breath, chest pain, worsening fatigue or weakness, please return to the hospital. Total Time Total Time Spent Total Time Spent (In Minutes): 35 min Coding Level of Care Code 60554 INP/OBS DISCH >30 MIN Diagnoses Bacteremia due to Klebsiella pneumoniae R78.81; B96.1 COVID-19 U07.1 UTI (urinary tract infection) N39.0 Sepsis A41.9 Bladder cancer C67.9 Hematuria R31.9 PAF (paroxysmal atrial fibrillation) I48.0
== END 2023-03-04 17:35 | disposition home or self-care (01) | DRG 871 ==
LOC: ED 13:42 → SUATTDRO 19:46 → 2N 19:46 → 3N 03-01 22:43

== ENCOUNTER 2024-02-17 06:30 | Observation (INO) ==
--- NOTE | 2024-02-07 09:07 | Anesthesiology Consultation ---
Date of Service February 07, 2024 Assessment & Plan Chart Review Chart Review: Acceptable Risk for Surgery and Patient NOT seen in Pre Admission Testing History Surgery Operation Date: 02/17/24 13:15 Proposed Procedures p TURBT (Transurethral Resection of the Bladder Tumor). Cut Out the Tumor(s) by Going Through the Urethra. With or Without Multiple Cup Biopsies of the Bladder - Faheem Krishnamurthy DO Height/Weight Height: 5 ft 6.25 in Weight: 74.843 kg Allergies Allergy/AdvReac Type Severity Reaction Status Date / Time No Known Allergies Allergy Verified 02/06/24 11:48 Medications Home Medications Medication Instructions Recorded Confirmed Last Taken Bedside Commode #1 ea 12/19/22 12/10/23 02/26/23 acetaminophen 325 mg tablet 650 mg (2 x 325 mg) PO Q4H PRN 12/26/22 02/06/24 Unknown fever or pain #1 tab amlodipine 10 mg tablet 10 mg PO QAM #90 tabs 05/27/23 02/06/24 Unknown atorvastatin 80 mg tablet 80 mg PO QAM #90 tabs 05/27/23 02/06/24 Unknown blood-glucose meter (OneTouch #1 ea 07/26/23 12/10/23 Unknown Verio Flex Start kit) blood sugar diagnostic (OneTouch #50 ea 09/02/23 12/10/23 Unknown Verio test strips) oxybutynin chloride 5 mg tablet 5 mg PO TID PRN bladder spasms 11/19/23 02/06/24 Unknown apixaban 5 mg tablet (Eliquis) 5 mg PO QAM 02/06/24 02/06/24 Unknown clopidogrel 75 mg tablet 75 mg PO BID 02/06/24 02/06/24 Unknown metoprolol succinate 100 mg 200 mg PO BID 02/06/24 02/06/24 Unknown tablet,extended release 24 hr Past Medical History Medical History PAF (paroxysmal atrial fibrillation) patient denies, follows with Erik Beltran, taking Eliquis Dyslipidemia Anemia USP (current) use of antithrombotics/antiplatelets USP (current) use of anticoagulants Venous (peripheral) insufficiency CAD (coronary artery disease) PAD (peripheral artery disease) Diabetes mellitus, type 2 no meds, diet controlled History of femur fracture Arthritis of knee, left Folate deficiency Physical deconditioning complains of balance issues since Dx of bladder cancer Hyperkalemia, diminished renal excretion patient denies Myocardial Infarction 2019, follows with Erik Beltran Urinary retention Bladder tumor Hydronephrosis Microscopic hematuria patient denies Palpitations History of colon polyps Benign enlargement of prostate Low back pain Tubular adenoma of colon Multi-vessel coronary artery stenosis Past Family History Family History Father Non-Hodgkin's lymphoma Mother Multiple myeloma Sister Dyslipidemia Heart disease Hypertension Uncle Myocardial infarction Other No family history of adverse response to anesthesia Denies family history of Ovarian cancer Prostate cancer Breast cancer Colorectal cancer Past Surgical History Surgical History S/P ureteral stent placement History of open reduction and internal fixation (ORIF) procedure Lt. Femur History of cardiac cath ~3 years ago, "failed stress test, needed cath", [place] H/O colonoscopy 08/2016 Stented coronary artery ~3 years ago, [facility], following cath at [facility], x1 stent (resolut summer) placed; now f/u Luis Manuel Beltran PA-C, [facility] Cardio. Social History Smoking Status: Never smoker tobacco type: cigarettes Do You Dip or Chew Tobacco: No Hx Alcohol Use: No Alcohol type: beer Hx Substance Use: No substance use type: does not use
--- NOTE | 2024-02-17 07:07 | History & Physical Bridge Note ---
Date of Service February 17, 2024 History & Physical Bridge Note I have examined the patient, reviewed the History & Physical and in the interval since the performance of the History & Physical I have noted the following changes of clinical significance: no changes noted
[2024-02-17] MEDS ORDERED: ATROPINE SULFATE 0.1 MG/ML 10ML SYR IV PRN (07:18)
[2024-02-17] MEDS ORDERED: HYDROmorphone INJ 1 MG/ML SYRINGE IV PRN (07:18)
[2024-02-17] MEDS ORDERED: fentaNYL citrate PF 100 MCG/2 ML VIAL IV PRN (07:18)
[2024-02-17] MEDS ORDERED: ePHEDrine sulfate 50 MG/ML AMP IV PRN (07:18)
[2024-02-17] MEDS ORDERED: ONDANSETRON INJ 2 MG/ML 2 ML VIAL IV PRN (07:18)
[2024-02-17] MEDS ORDERED: PHENAZOPYRIDINE HCL 200 MG TAB PO PRN (07:29)
[2024-02-17] MEDS ORDERED: MoRPHine SULFATE 2 MG/ML CARP IV PRN (07:29)
[2024-02-17] MEDS ORDERED: oxyCODONE/ACETAMINOPHEN 5mg/325mg TAB PO PRN (07:29)
[2024-02-17] MEDS: LR 15ML/HR IV SCH (08:03)
[2024-02-17] MEDS ORDERED: PROPOFOL IV EMULSION 10 MG/ML 20 ML VIAL IV ONE (08:25)
[2024-02-17] MEDS ORDERED: ONDANSETRON INJ 2 MG/ML 2 ML VIAL ONE (08:25)
[2024-02-17] MEDS ORDERED: fentaNYL citrate PF 100 MCG/2 ML VIAL ONE (08:25)
[2024-02-17] MEDS ORDERED: LIDOCAINE 2% 2 ML VIAL/AMP(20MG/ML) INFIL ONE (08:25)
[2024-02-17] MEDS: ceFAZolin 2000MG 2,000 MG/15 ML SYR IV SCH (08:44)
[2024-02-17 08:45] LABS: Basophils # (auto) 0.02 K/uL (0.00-0.20); Basophils % (auto) 0.3 %; Eosinophils # (auto) 0.03 K/uL (0.00-0.50); Eosinophils % (auto) 0.5 %; Hematocrit (blood only) 36.9 % (42.0-52.0); Hemoglobin 12.1 g/dl (14.0-18.0); Immature Granulocytes # (auto) 0.01 K/uL (0.01-0.20); Immature Granulocytes % (auto) 0.2 %; Lymphocytes % (auto) 32.6 %; Mean Corpuscular Hemoglobin 27.9 pg (25.0-34.0); Mean Corpuscular Hgb Conc 32.8 g/dL (32.0-36.0); Mean Corpuscular Volume 85.2 fL (80.0-100.0); Mean Platelet Volume 10.3 fL (9.4-12.4); Monocytes # (auto) 0.41 K/uL (0.11-0.59); Neutrophils # (auto) 3.45 K/uL (1.40-6.50); Neutrophils % (auto) 59.4 %; Platelet Count 154 K/uL (130-400); RDW Coefficient of Variation 13.8 % (11.5-14.5); RDW Standard Deviation 42.8 fL (36.4-46.3); Red Blood Count 4.33 M/uL (4.70-6.10); White Blood Count 5.82 K/ul (4.8-10.8)
[2024-02-17 09:08] LABS: Albumin Globulin Ratio 1.4 (0.9-2); Albumin Level 3.6 gm/dl (3.4-5.0); Calcium 8.9 mg/dl (8.6-10.3); Creatinine Clr Calc Pharmacy 48.5 ml/min; Globulin 2.6 gm/dl (2.5-4.0); Potassium 3.9 mmol/L (3.5-5.1); Total Protein 6.2 gm/dl (6.0-8.3)
--- NOTE | 2024-02-17 09:41 | Operative Report ---
NOEMI Post Operative Report Pre & Post Diagnosis Operation Date: 02/17/24 08:35 Pre-Op Diagnosis: Bladder Cancer Post-Op Diagnosis: Bladder Cancer I identified the patient and participated in the time-out.: Yes Procedure Operation Date: 02/17/24 08:35 Actual Procedures Cystoscopy with Transurethral Resection of the Bladder Tumor, Large Transurethral resection of prostate and Bladder Lesion Fulguration - Faheem Krishnamurthy DO Surgeon Faheem Krishnamurthy, II, DO Strategy Intern None Estimated Blood Loss 5 Findings Consistent with Post-Op Diagnosis Papillary lesions along the posterior wall. Largest resected lesion approx 5.1 cm in size on the posterior wall. Additional small lesions on lateral wall on left. Ulcerated lesions on right lateral wall and dome. Approx 1.5 cm lesion in the left lateral lobe of prostate with papillary appearance. Large prostate Specimens Resected lesions - 1. Posterior wall Bladder 2. Left lateral wall Bladder 3. Prostate Lesion Drains 20 Fr coude Anesthesia Type MAC Complications none Disposition Disposition: Recovery Room Indications Patient with bladder lesions and hematuria. Risks and benefits discussed at length. Description of Procedure Patient was consented and brought back to the operating room. Patient was placed under anesthesia in the supine position and moved to the dorsal lithotomy position. Patient was prepped and draped in the regular sterile fashion. A time out was completed. A 30degree Cystoscope was placed into the bladder and the entire bladder was examined. The UO's were identified as well as the bladder neck, trigone, dome, and the other important landmarks. The lesions and areas of concern were identified and area/size was assessed. Ulcerated lesions at the dome were discovered and along the right lateral wall. Bleeding from the dome was noted. Large papillary lesion of the posterior wall. Additionally a papillary lesion of the left lateral lobe of the prostate. The resection scope with the fine bipolar loop was selected. The entire lesion was assessed. The lesion was resected. The resected tissue was removed and sent for analysis. The resection bed and edges of the resection were fulgurated and the entire area inspected. All bleeding was controlled. The lesion within the prostate was resected. This was located on the left lateral lobe of the prostate. Additional tissue was resected to allow the channel to remain open after resection. This was sent for pathology. Lesions at the dome were fulgurated. The bleeding lesion was fulgurated and was approx area of 3.2 cm. Additionally small papillary lesion of the dome, posterior wall, and right lateral wall were fulgurated. A small lesion of the left lateral wall of the bladder was resected. The base of the tumors were then cauterized/fulgurated and all bleeding was controlled. The bladder was inspected a final time. The bladder was emptied. The scope was removed. A 20 Fr khan was placed. The patient was cleaned, aroused from anesthesia, and transferred to the pacu in stable condition having tolerated the procedure well with no complications. I was present and participated in all aspects of the procedure. The patient will be monitored in the PACU until transferred. Observe overnight. Will plan to remove catheter tomorrow morning to allow time for healing. Will monitor overnight. I attest to the content of the Intraoperative Record and any orders documented therein. Any exceptions are noted below.
[2024-02-17 10:43] VITALS: RESP 18
[2024-02-17] MEDS: CIPROFLOXACIN / D5W 400 MG/200 ML BAG IV SCH (11:04)
[2024-02-17] MEDS: DOCUSATE SODIUM 100 MG CAP PO SCH (11:04)
[2024-02-17] MEDS: D5W AND 1/2NSS + 20MEQ KCL 20 MEQ/1,000 ML BAG IV SCH (13:13)
--- NOTE | 2024-02-17 14:29 | Anesthesiology Progress Note ---
Date of Service February 17, 2024 Anesthesia Post Procedure Vital Signs Vital Signs: Temp Pulse Pulse Resp BP Pulse Ox O2 Del Method 02/17/24 11:54 53 L 02/17/24 10:47 Room Air 02/17/24 10:42 36.5 C 53 L 18 190/91 H 97 Room Air 02/17/24 10:05 36.4 C L 56 L 16 167/66 H 97 Room Air 02/17/24 09:55 54 L 12 150/62 H 97 Room Air 02/17/24 09:45 55 L 16 157/62 H 98 Room Air 02/17/24 09:38 36.3 C L 56 L 18 165/66 H 99 Room Air 02/17/24 07:46 36.9 C 47 L 16 150/63 H 98 Room Air Transfer of Care Handoff Completed per policy Notes Mental Status: alert / awake / arousable and participated in evaluation Patient Amnestic to Procedure: Yes Nausea / Vomiting: adequately controlled Pain: adequately controlled Airway Patency, RR, SpO2: stable & adequate BP & HR: stable & adequate Hydration State: stable & adequate Anesthetic Complications: no major complications apparent and Pt Satisfied with anesthetic care
[2024-02-17] MEDS: METOPROLOL SUCC 50MG EXT REL TAB PO SCH (19:28)
[2024-02-18 07:53] VITALS: O2SAT 97
--- NOTE | 2024-02-18 08:41 | Urology Progress Note ---
Date of Service February 18, 2024 Assessment & Plan (1) Bladder cancer: Plan: POD #1 s/p Cystoscopy with Transurethral Resection of the Bladder Tumor, Large; Transurethral resection of prostate and Bladder Lesion Fulguration with Dr. Krishnamurthy Afebrile and hemodynamically stable Subjectively doing well, denies pain or issues overnight Kennedy patent and draining clear yellow urine Remove Kennedy catheter this morning for voiding trial, monitor for void Will arrange outpatient follow-up with Dr. Krishnamurthy to review surgical pathology Will send with course of antibiotics at discharge He can resume Eliquis and Plavix tomorrow presuming urine remains clear Expected clinical course reviewed, all questions answered Anticipate discharge to home later today if he continues to progress as expected Admission and Anticipated Discharge Date Admission Date: February 17, 2024 Subjective Patient seen and examined at bedside this morning. No acute issues overnight. Denies pain. Kennedy draining clear yellow urine. No fever or chills. No nausea or vomiting. Review of Systems Constitutional: as per Subjective / HPI Genitourinary: + as per Subjective / HPI Physical Exam Constitutional: well developed and well nourished; no acute distress Respiratory: normal respiratory effort; no respiratory distress and no labored breathing Gastrointestinal (Abdomen): Inspection/Auscultation: abdomen normal to inspection Musculoskeletal: Head/Neck/Chest: normocephalic Neurologic: moves all extremities and awake Psychiatric: Orientation: alert and oriented x 3 Genitourinary: Kennedy patent and draining clear yellow urine Results & Data Vital Signs (Past 12 Hours) Vital Signs Temp Pulse Pulse Resp BP Pulse Ox O2 Del Method 02/18/24 07:52 36.9 C 51 L 18 184/79 H 97 Room Air 02/18/24 07:37 57 L 02/18/24 04:00 37.0 C 56 L 18 177/80 H 96 Room Air 02/18/24 00:00 36.9 C 52 L 18 171/70 H 97 Room Air 02/17/24 23:26 53 L PG Care Time/CCT Total # of Minutes Spent Total Time Spent with Patient: Total time spent is greater than 50% in coordination of care (as documented) at patient's floor/unit and/or counseling patient: Coding Level of Care Code None Diagnoses Bladder cancer C67.9
--- NOTE | 2024-02-18 10:48 | Discharge Summary ---
Date of Service February 18, 2024 Admission HPI Per Admitting Provider Patient with bladder cancer presents for transurethral resection of bladder tumor. Admission Exam Per Admitting Provider General: Alert in no acute distress. HEENT: Normocephalic Atraumatic. Inspection normal. Psychologic: Normal affect. Respiratory: Nonlabored. Cardiovascular: No tachycardia Skin: [place] and Dry. Principal Diagnosis Bladder cancer Discharge Exam Constitutional well developed and well nourished; no acute distress Respiratory normal respiratory effort; no respiratory distress and no labored breathing Gastrointestinal (Abdomen) Inspection/Auscultation: abdomen normal to inspection Musculoskeletal Head/Neck/Chest: normocephalic Neurologic moves all extremities and awake Psychiatric Orientation: alert and oriented x 3 Discharge Data Allergies Allergy/AdvReac Type Severity Reaction Status Date / Time No Known Allergies Allergy Verified 02/17/24 07:37 Procedures Performed Operation Date: 02/17/24 08:35 Actual Procedures p Transurethral Resection of the Bladder Tumor, (Not Applicable) - DO augusto Helton Transurethral resection of prostate, Fulguration (Not Applicable) - DO augusto Helton Cystoscopy(Not Applicable) - Faheem Krishnamurthy DO Hospital Course (1) Bladder cancer: POD #1 s/p Cystoscopy with Transurethral Resection of the Bladder Tumor, Large; Transurethral resection of prostate and Bladder Lesion Fulguration with Dr. Krishnamurthy Afebrile and hemodynamically stable Subjectively doing well, denies pain or issues overnight Kennedy patent and draining clear yellow urine Remove Kennedy catheter this morning for voiding trial, monitor for void Will arrange outpatient follow-up with Dr. Krishnamurthy to review surgical pathology Will send with course of antibiotics at discharge He can resume Eliquis and Plavix tomorrow presuming urine remains clear Expected clinical course reviewed, all questions answered Anticipate discharge to home later today if he continues to progress as expected Patient voided after catheter removal and feels ready for discharge--orders placed Total Time Total Time Spent Total Time Spent (In Minutes): 20 Discharge Plan Discharge Items Patient Disposition: Home - Self-Care Reason For Visit: Bladder Cancer Discharge Diagnosis: Bladder cancer Activity: Per Instructions section Lifting: No more than 25 pounds Bathing Comment: Okay to shower after discharge Sexual Activity: Wait until after follow-up appointment Exercise/Sports: Wait until after follow-up appointment Driving/Machine Use: No driving while taking prescription pain medication Non-emergency contact: Surgeon and Urologist Call non-emergency contact if: your pain is not controlled, you have a fever and your temperature is above 101 Follow-up/Referrals: Delmi Umanzor MD [Primary Care Provider] - Diet: Carb Consistent or DM2 Addtl Attending Provider Instructions: Please take all medications as prescribed and keep all follow-ups as scheduled. Please call our office at [phone] with any questions, concerns or need to reschedule appointments for any reason. We are happy to assist you. Okay to resume Plavix and Eliquis tomorrow if your urine remains clear to light pink. You have been sent an antibiotic to start after discharge either tonight or tomorrow morning. Tips for your recovery at home: Dont be alarmed by brownish or reddish blood or clots in your urine. This is a result of the procedure. However, if this does not improve after 1 week, please contact our office. Drink plenty of fluids during the day (enough to keep your urine very light colored). This will help keep a healthy flow of urine. Do not lift >25 lbs until your followup Avoid constipation. Please use a stool softener (Colace) for the first two weeks after your procedure Be sure to finish the antibiotics as prescribed. If you go home with a catheter, please wash tubing where it enters your body twice daily with mild soap (Dove or Dial). Once your catheter is removed, expect some blood in your urine and some burning when you urinate. You should have an appointment to have this removed, if you do not please call our office to arrange. When to call [facility] at [phone]: Your urine contains heavy blood clots You are constantly leaking urine Fever of 101F or higher, chills, nausea, or vomiting Your pain is not relieved with medication Pending Studies at Discharge: Yes (pathology) Stand-Alone Forms: [employer], Smoking Cessation Medications and DC Order Prescriptions: New cephalexin 500 mg capsule 500 mg PO BID 7 Days Qty: 14 0RF Continued (DME) Bedside Commode Misc See Rx Instructions .Route Qty: 1 0RF Rx Instructions: As directed (DME) blood-glucose meter [OneTouch Verio Flex Start] Kit See Rx Instructions .Route Qty: 1 0RF Rx Instructions: Check blood sugar twice daily amlodipine 10 mg tablet 10 mg PO QAM Qty: 90 3RF atorvastatin 80 mg tablet 80 mg PO QAM Qty: 90 3RF oxybutynin chloride 5 mg tablet 5 mg PO TID PRN (Reason: bladder spasms) Patient Comments: "not taking it but I have it" (DME) OneTouch Verio test strips Strip See Rx Instructions .Route Qty: 50 1RF Rx Instructions: Test daily As directed acetaminophen 325 mg Tablet 650 mg PO Q4H PRN (Reason: fever or pain) Qty: 1 0RF metoprolol succinate 100 mg tablet extended release 24 hr 200 mg PO BID clopidogrel 75 mg tablet 75 mg PO BID Eliquis 5 mg tablet 5 mg PO QAM Patient Comments: "I'm supposed to take it twice a day but I don't because I bleed" Discharge Orders: Discharge Order (Routine); Ordered 02/18/24 Ordered By: Zully Kendall Admission Data Admit Date/Time: 02/17/24 07:29 Attending Provider: Faheem Krishnamurthy Admit Provider: Faheem Krishnamurthy Primary Care Provider: Delmi Umanzor Other Interventions: Discharge Summary Assessment (RN) Last Done: 02/18/24 11:02 Coding Level of Care Code 25812 IN/OBS DISCH 30 MIN/LESS Diagnoses Bladder cancer C67.9
[2024-02-18 11:18] VITALS: BP 180/54; PULSE 52; TEMP 98.8
== END 2024-02-18 12:32 | disposition home or self-care (01) ==
LOC: 2N 06:30 → ASU 06:30

== ENCOUNTER 2024-09-14 08:47 | Observation (INO) ==
--- NOTE | 2024-09-01 10:52 | PAT Medication Instructions ---
Medication Instructions Date of Service September 01, 2024 Home Medications Medication Instructions Recorded Bedside Commode #1 ea 12/19/22 acetaminophen 325 mg tablet 650 mg (2 x 325 mg) PO Q4H PRN 12/26/22 fever or pain #1 tab blood-glucose meter (OneTouch #1 ea 07/26/23 Verio Flex Start kit) blood sugar diagnostic (OneTouch #50 ea 09/02/23 Verio test strips) amlodipine 10 mg tablet 10 mg PO QAM #90 tabs 03/25/24 atorvastatin 80 mg tablet 80 mg PO QAM #90 tabs 03/25/24 metoprolol succinate 200 mg 200 mg PO BID #180 tabs 04/06/24 tablet,extended release 24 hr apixaban 2.5 mg tablet 2.5 mg PO BID #180 tabs 07/21/24 clopidogrel 75 mg tablet 75 mg PO BID #180 tabs 07/21/24 lisinopril 40 mg tablet 40 mg PO DAILY #90 tabs 07/21/24 acetaminophen 325 mg tablet 650 mg (2 x 325 mg) PO Q4H PRN amlodipine 10 mg tablet 10 mg PO QAM atorvastatin 80 mg tablet 80 mg PO QAM metoprolol succinate 200 mg tablet,extended release 24 hr 200 mg PO BID apixaban 2.5 mg tablet 2.5 mg PO BID clopidogrel 75 mg tablet 75 mg PO BID lisinopril 40 mg tablet 40 mg PO DAILY multivitamin 1 tab PO QAM ASK your prescriber and surgeon apixaban 2.5 mg tablet 2.5 mg PO BID clopidogrel 75 mg tablet 75 mg PO BID DO NOT take the morning of surgery lisinopril 40 mg tablet 40 mg PO DAILY multivitamin 1 tab PO QAM Take morning of surgery With a small sip of water, OTHERWISE NOTHING TO EAT OR DRINK AFTER MIDNIGHT: acetaminophen 325 mg tablet 650 mg (2 x 325 mg) PO Q4H PRN(if needed) amlodipine 10 mg tablet 10 mg PO QAM atorvastatin 80 mg tablet 80 mg PO QAM metoprolol succinate 200 mg tablet,extended release 24 hr 200 mg PO BID Take evening before surgery acetaminophen 325 mg tablet 650 mg (2 x 325 mg) PO Q4H PRN(if needed) metoprolol succinate 200 mg tablet,extended release 24 hr 200 mg PO BID Other Notes If you have any questions please call us at [phone] or [phone] or [phone] or [phone]
--- NOTE | 2024-09-01 11:07 | Anesthesiology Consultation ---
Date of Service September 01, 2024 Assessment & Plan (1) Encounter for pre-operative examination: Plan - blood pressure readings elevated at home per patient often with systolic above 170, he feels it is due to the machine being from [facility]. He denies chest discomfort, shortness of breath, headaches, visual changes or nausea. He is past due to follow-up with [place] cardiology per 07/21/24 note regarding follow-up on BP, states he is regularly taking prescribed anti-hypertensive medications. Case discussed in detail with Dr. Parekh who advised patient can proceed as scheduled pending DOS BP reading/anesthesiologist evaluation and advised that patient contact [place] cardiology to re-schedule follow-up and that this does not have to occur prior to surgery. Patient made aware. - cardiology office visit 07/21/24 [place]: "...Multi-Vessel CAD s/p Ostial and Proximal LAD NEVA x 2 and OM1 NEVA 07/01/2018 (with residual borderline D2 stenosis, OM2 stenosis, RCA/PDA stenoses which are felt amenable to complex PCI), and a single episode of documented Paroxysmal Atrial Fibrillation with RVR (October 2022) who presents today for Cardiologic Follow-up...continues to feel very well overall and from a cardiac standpoint...has been riding his exercise bike for exercise, but he has not been hiking or walking because of the ice it conditions this winter...has not experienced any angina pectoris, overt signs or symptoms of heart failure, nor has he had any recurrent atrial fibrillation to his knowledge...has not had any symptoms suggestive of stroke or mini stroke...does not experience claudication with his day-to-day activities..remains compliant with his medications and has not had any adverse side effects...home blood pressure readings have been elevated recently, especially in the morning before he takes his medications. His blood pressure typically goes down throughout the day...avoids any process foods or added salt to his diet. When I rechecked his blood pressure today was 142/72 -- which is above goal. Recommend the following: Increase Lisinopril to 40 mg daily... Chart Review Chart Review: Acceptable Risk for Surgery and Patient seen in Pre Admission Testing Teaching & Discussion Pre-Anesthesia Teaching/Discussion Notes: Instructed NPO after midnight before surgery, except medications with 15 cc of water. Medication instructions provided according to the PAT guidelines. History Surgery Operation Date: 09/14/24 09:10 Proposed Procedures p TURBT (Transurethral Resection Bladder Tumor) Cut Out the Tumor(s) by Going Through the Urethra with or without Multiple Cup Biopsies of the Bladder - Faheem Krishnamurthy DO Height/Weight Height: 5 ft 6.25 in Weight: 82.1 kg Allergies Allergy/AdvReac Type Severity Reaction Status Date / Time No Known Allergies Allergy Verified 09/01/24 10:38 Medications Home Medications Medication Instructions Recorded Confirmed Last Taken Bedside Commode #1 ea 12/19/22 07/21/24 02/26/23 acetaminophen 325 mg tablet 650 mg (2 x 325 mg) PO Q4H PRN 12/26/22 09/01/24 02/17/24 06:00 fever or pain #1 tab blood-glucose meter (OneTouch #1 ea 07/26/23 07/21/24 Unknown Verio Flex Start kit) blood sugar diagnostic (OneTouch #50 ea 09/02/23 07/21/24 Unknown Verio test strips) amlodipine 10 mg tablet 10 mg PO QAM #90 tabs 03/25/24 09/01/24 Unknown atorvastatin 80 mg tablet 80 mg PO QAM #90 tabs 03/25/24 09/01/24 Unknown metoprolol succinate 200 mg 200 mg PO BID #180 tabs 04/06/24 09/01/24 Unknown tablet,extended release 24 hr apixaban 2.5 mg tablet 2.5 mg PO BID #180 tabs 07/21/24 09/01/24 Unknown clopidogrel 75 mg tablet 75 mg PO BID #180 tabs 07/21/24 09/01/24 Unknown lisinopril 40 mg tablet 40 mg PO DAILY #90 tabs 07/21/24 09/01/24 Unknown multivitamin 1 tab PO QAM 09/01/24 09/01/24 Unknown Past Medical History Medical History (Updated 09/01/24 @ 11:53 by Dinora Daley PA-C) Arthritis of knee, left Benign enlargement of prostate Bladder cancer dx 08/2022 CAD (coronary artery disease) "Multi-Vessel CAD s/p Ostial and Proximal LAD NEVA x 2 and OM1 NEVA 07/01/2018 (with residual borderline D2 stenosis, OM2 stenosis, RCA/PDA stenoses which are felt amenable to complex PCI" follows with [place] cardiology Diabetes diet controlled Dyslipidemia Folate deficiency hx History of anemia denies known current issues History of colon polyps History of COVID-19 (2022) resolved Leg edema, left chronic, denies change or worsening prison (current) use of anticoagulants Low back pain occasional Microscopic hematuria patient denies Myocardial Infarction 2019, follows with Erik Beltran PAD (peripheral artery disease) PAF (paroxysmal atrial fibrillation) patient denies, follows with Erik Beltran, taking Eliquis Tubular adenoma of colon hx Urinary retention Venous (peripheral) insufficiency Patient denies h/o stroke, seizures, heart failure, blood clots/DVTs or blood transfusions. Exercise / Class Metabolic Activity III < 4 Walking/Shop/Light housework (denies chest discomfort or shortness of breath with usual activities, less than 3 steps in home) Past Family History Family History Father Non-Hodgkin's lymphoma Mother Multiple myeloma Sister Dyslipidemia Heart disease Hypertension Uncle Myocardial infarction Other No family history of adverse response to anesthesia Denies family history of Ovarian cancer Prostate cancer Breast cancer Colorectal cancer Past Surgical History Surgical History H/O colonoscopy 08/2016 History of cardiac cath ~3 years ago, "failed stress test, needed cath", [place] History of open reduction and internal fixation (ORIF) procedure Lt. Femur S/P ureteral stent placement Stented coronary artery ~3 years ago, [facility], following cath at [facility], x1 stent (resolut summer) placed; now f/u Luis Manuel Beltran PA-C, [facility] Cardio. Past Anesthesia History No Hx of Anesthesia Complications and No Family Hx of Anesthesia Complications History of PONV No Hx of PONV and No Hx of Motion Sickness Social History Smoking Status: Former smoker tobacco type: cigarettes Do You Dip or Chew Tobacco: No Smoking End Date: quit 1991 Hx Alcohol Use: No Hx Substance Use: No substance use type: does not use Review of Systems Snoring, denies witnessed apneas. Patient denies chest pain, shortness of breath, dyspnea on exertion, reflux, fever, chills, cough, wheezing, or palpitations. Physical Exam Vital Signs Vitals BP 163/86 P 50 TEMP 98.1 SP02 97% on RA RESP 18 Physical Patient resting comfortably in chair in no acute distress, alert and oriented, responding appropriately throughout visit Full cervical extension range of motion without pain TMD 3.5 finger breadths Mallampati Score 2 Dentition: intact, denies chipped or loose teeth, caps/crowns, implants or bridges Lungs: normal respiratory effort. Good air movement, clear throughout to auscultation, no adventitious breath sounds Cardiac: regular rate and rhythm, no murmurs noted Carotid arteries: negative bruit bilat Lab Results Anesthesia Preop Results Results Anesthesia Widget: WBC 6.02 K/ul (4.8-10.8) 09/01/24 Hgb 13.4 g/dl (14.0-18.0) L 09/01/24 Hct 40.8 % (42.0-52.0) L 09/01/24 Plt 166 K/uL (130-400) 09/01/24 Na 140 mmol/L (136-145) 09/01/24 K 3.9 mmol/L (3.5-5.1) 09/01/24 Cl 108 mmol/L (98-107) H 09/01/24 CO2 29 mmol/L (21-32) 09/01/24 BUN 20 mg/dl (6-23) 09/01/24 Creat 1.21 mg/dl (0.6-1.4) 09/01/24 Glucose Level 91 mg/dl (70-99(Fasting)) 09/01/24 HA1c 5.5 % (4.5-5.6) 09/01/24 Urine Appearance Clear 07/21/24 Testing Electrocardiogram Date: 09/01/24 Sinus bradycardia, rate 46 bpm Chest X-Ray Date: 09/01/24 Cardiac silhouette is unchanged. Atherosclerosis of the aorta. Mild hyperinflation with diaphragmatic flattening. Mild linear subsegmental atelectasis versus scarring in the lingula. The bones appear grossly intact. Unchanged punctate radiodense foci project over the right hemithorax. Spondylitic spurring of the spine. Unchanged mild linear scarring of the right upper lobe. IMPRESSION: No acute process. Echocardiogram Date: 11/01/22 EF 60-65% No LV regional wall motion abnormalities Mild cLVH No significant valvular pathology
[2024-09-14] MEDS ORDERED: ONDANSETRON INJ 2 MG/ML 2 ML VIAL IV PRN (08:56)
[2024-09-14] MEDS ORDERED: fentaNYL citrate PF 100 MCG/2 ML VIAL IV PRN (08:56)
[2024-09-14] MEDS ORDERED: ATROPINE SULFATE 0.1 MG/ML 10ML SYR IV PRN (08:56)
[2024-09-14] MEDS ORDERED: HYDROmorphone INJ 1 MG/ML SYRINGE IV PRN (08:56)
[2024-09-14] MEDS ORDERED: ePHEDrine sulfate 50 MG/ML AMP IV PRN (08:56)
--- NOTE | 2024-09-14 09:03 | Anesthesiology Consultation ---
Date of Service September 14, 2024 Assessment & Plan (1) Bladder cancer: Chart Review Chart Review: Acceptable Risk for Surgery Consults Requested none ASA ASA3 Proposed Anesthesia Anesthesia Type: General History Surgery Operation Date: 09/14/24 10:15 Proposed Procedures p Transurethral Resection Bladder Tumor, Possible Multiple Cup Biopsies of the Bladder - Faheem Krishnamurthy, Height/Weight Height: 5 ft 6.25 in Weight: 80.3 kg Allergies Allergy/AdvReac Type Severity Reaction Status Date / Time No Known Allergies Allergy Verified 09/14/24 08:57 Medications Home Medications Medication Instructions Recorded Confirmed Last Taken Bedside Commode #1 ea 12/19/22 07/21/24 02/26/23 acetaminophen 325 mg tablet 650 mg (2 x 325 mg) PO Q4H PRN 12/26/22 09/14/24 02/17/24 06:00 fever or pain #1 tab blood-glucose meter (OneTouch #1 ea 07/26/23 07/21/24 Unknown Verio Flex Start kit) blood sugar diagnostic (OneTouch #50 ea 09/02/23 07/21/24 Unknown Verio test strips) amlodipine 10 mg tablet 10 mg PO QAM #90 tabs 03/25/24 09/14/24 09/14/24 07:30 atorvastatin 80 mg tablet 80 mg PO QAM #90 tabs 03/25/24 09/14/24 09/13/24 08:00 metoprolol succinate 200 mg 200 mg PO BID #180 tabs 04/06/24 09/14/24 09/14/24 07:30 tablet,extended release 24 hr apixaban 2.5 mg tablet 2.5 mg PO BID #180 tabs 07/21/24 09/14/24 09/10/24 08:00 clopidogrel 75 mg tablet 75 mg PO BID #180 tabs 07/21/24 09/14/24 09/10/24 08:00 lisinopril 40 mg tablet 40 mg PO DAILY #90 tabs 07/21/24 09/14/24 09/14/24 07:30 multivitamin 1 tab PO QAM 09/01/24 09/14/24 09/13/24 08:00 ciprofloxacin HCl 500 mg tablet 500 mg PO Q12H #14 tabs 09/14/24 Unknown (Cipro) oxycodone-acetaminophen 7.5 mg-325 1 tab PO Q8H PRN pain 3 days #7 09/14/24 Unknown mg tablet (Percocet) tabs phenazopyridine 200 mg tablet 200 mg PO Q8H PRN pain #10 tabs 09/14/24 Unknown (Pyridium) tamsulosin 0.4 mg capsule 0.4 mg PO HS #30 caps 09/14/24 Unknown Active Medications Generic Name Dose Route Start Last Admin Trade Name Freq PRN Reason Stop Dose Admin Lactated Ringer's 1,000 mls @ 15 mls/hr 09/14/24 06:00 09/14/24 09:13 Lr IV 09/15/24 05:59 15 mls/hr .Q24H MITCH Administration NPO Last Intake of Solids Comment: Greater then 8 hrs Past Medical History Medical History History of COVID-19 (2022) resolved Bladder cancer dx 08/2022 History of anemia denies known current issues Diabetes diet controlled Leg edema, left chronic, denies change or worsening PAF (paroxysmal atrial fibrillation) patient denies, follows with Erik Beltran, taking Eliquis 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 Venous (peripheral) insufficiency CAD (coronary artery disease) "Multi-Vessel CAD s/p Ostial and Proximal LAD NEVA x 2 and OM1 NEVA 07/01/2018 (with residual borderline D2 stenosis, OM2 stenosis, RCA/PDA stenoses which are felt amenable to complex PCI" follows with [place] [facility] PAD (peripheral artery disease) Arthritis of knee, left Folate deficiency hx Myocardial Infarction 2019, follows with Erik Beltran Urinary retention Microscopic hematuria patient denies History of colon polyps Benign enlargement of prostate Low back pain occasional Tubular adenoma of colon hx Exercise / Class Metabolic Activity III < 4 Walking/Shop/Light housework Past Family History Family History Father Non-Hodgkin's lymphoma Mother Multiple myeloma Sister Dyslipidemia Heart disease Hypertension Uncle Myocardial infarction Other No family history of adverse response to anesthesia Denies family history of Ovarian cancer Prostate cancer Breast cancer Colorectal cancer Past Surgical History Surgical History S/P ureteral stent placement History of open reduction and internal fixation (ORIF) procedure Lt. Femur History of cardiac cath ~3 years ago, "failed stress test, needed cath", [place] H/O colonoscopy 08/2016 Stented coronary artery ~3 years ago, [facility], following cath at [facility], x1 stent (resolut summer) placed; now f/u Luis Manuel Beltran PA-C, [facility] Cardio. Past Anesthesia History No Hx of Anesthesia Complications History of PONV No Hx of PONV Social History Smoking Status: Former smoker tobacco type: cigarettes Do You Dip or Chew Tobacco: No Smoking End Date: quit 1991 Hx Alcohol Use: No Alcohol type: beer Hx Substance Use: No substance use type: does not use Physical Exam Vital Signs Last Vital Signs Temp 36.7 C 09/14/24 08:55 Pulse 46 L 09/14/24 08:55 Resp 20 09/14/24 08:55 BP 164/76 H 09/14/24 08:55 Pulse Ox 99 09/14/24 08:55 O2 Del Method Room Air 09/14/24 08:55 Constitutional no acute distress ENMT Mouth: no TMJ abnormality Thyromental Distance: > or= 3.5 Finger Breadths Mallampati Class: II Neck normal visual inspection Respiratory normal respiratory effort Cardiovascular Rate/Rhythm: regular rate and regular rhythm Neurologic moves all extremities Psychiatric Orientation: alert and oriented x 3 Testing Electrocardiogram Date: 09/01/24 Sinus bradycardia, rate 46 bpm Chest X-Ray Date: 09/01/24 Cardiac silhouette is unchanged. Atherosclerosis of the aorta. Mild hyperinflation with diaphragmatic flattening. Mild linear subsegmental atelectasis versus scarring in the lingula. The bones appear grossly intact. Unchanged punctate radiodense foci project over the right hemithorax. S pondylitic spurring of the spine. Unchanged mild linear scarring of the right upper lobe. IMPRESSION: No acute process. Echocardiogram Date: 11/01/22 EF 60-65% No LV regional wall motion abnormalities Mild cLVH No significant valvular pathology
--- NOTE | 2024-09-14 09:06 | History & Physical Bridge Note ---
Date of Service September 14, 2024 History & Physical Bridge Note I have examined the patient, reviewed the History & Physical and in the interval since the performance of the History & Physical I have noted the following changes of clinical significance: no changes noted
[2024-09-14] MEDS: LACTATED RINGER'S 1,000 ML IV SCH (09:13)
[2024-09-14] MEDS ORDERED: fentaNYL citrate PF 100 MCG/2 ML VIAL ONE ×2 (09:22→10:38)
[2024-09-14] MEDS ORDERED: MIDAZOLAM HCL 1 MG/ML 2ML VIAL ONE (09:22)
[2024-09-14] MEDS ORDERED: oxyBUTYnin chloride 5 MG TAB PO PRN (10:03)
[2024-09-14] MEDS ORDERED: oxyCODONE/ACETAMINOPHEN 5mg/325mg TAB PO PRN (10:03)
[2024-09-14] MEDS ORDERED: MoRPHine SULFATE 2 MG/ML CARP IV PRN ×2 (10:03)
[2024-09-14] MEDS ORDERED: PHENAZOPYRIDINE HCL 200 MG TAB PO PRN (10:03)
[2024-09-14] MEDS ORDERED: LIDOCAINE 2% 2 ML VIAL/AMP(20MG/ML) INFIL ONE (10:16)
[2024-09-14] MEDS ORDERED: ONDANSETRON INJ 2 MG/ML 2 ML VIAL ONE (10:16)
[2024-09-14] MEDS ORDERED: DEXAMETHASONE SOD INJ 4 MG/ML VIAL ONE (10:16)
[2024-09-14] MEDS ORDERED: PROPOFOL IV EMULSION 10 MG/ML 20 ML VIAL IV ONE (10:16)
[2024-09-14] MEDS ORDERED: KETOROLAC 30 MG/ML VIAL ONE (10:17)
[2024-09-14] MEDS ORDERED: ePHEDrine sulfate 50 MG/5 ML SYR ONE (10:47)
--- NOTE | 2024-09-14 11:03 | Operative Report ---
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 Approx 5.3 cm in size. Tumor within diverticulum of the posterior wall. Severe trabeculation and diverticulum throughout bladder. Large bleeding varicosity of the anterior portion of the prostate and bladder neck Specimens Right Lateral Wall Posterior diverticulum Drains 20 Fr Coude Complications none Disposition Disposition: Recovery Room Indications Patient with bladder tumor and known bladder cancer. Risks and benefits discussed at length. Description of Procedure Patient was consented and brought back to the operating room. Patient was placed under anesthesia in the supine position and moved to the dorsal lithotomy position. Patient was prepped and draped in the regular sterile fashion. A time out was completed. A 30degree Cystoscope was placed into the bladder and the entire bladder was examined. The UO's were identified as well as the bladder neck, trigone, dome, and the other important landmarks. The tumor was identified and area size was assessed. There was significant irritation and bleeding at the bladder neck and prostate. Large varicosities were noted throughout the prostatic urethra and most prominent along the bladder neck at approximately the 12 o'clock position there was a significant bleeding prostatic varicosity. This was fulgurated with the bipolar loop. All bleeding was controlled. Additional varicosities were then also fulgurated to avoid further issues during resection. The resection scope with the fine bipolar loop was selected. The entire tumor was assessed. The tumor was resected. The tumor appeared to be largely on the surface and consisted of a very large area of papillary tumor with surrounding velvety thickened irregular tissue suspicious for possible CIS. The bulk of the tumor was removed and sent for analysis. The resection bed and edges of the resection were fulgurated and the entire area inspected. An additional tumor was discovered on the posterior wall appearing to come from a diverticulum on displacement of this area the tumor appeared to bulge outwards. The edge of the diverticulum was able to be resected and afterwards, the entire diverticulum tumor was able to be resected. No sign of bladder perforation or injury. All bleeding was controlled. The bladder was inspected a final time. The bladder was emptied. The scope was removed. The patient was cleaned, aroused from anesthesia, and transferred to the pacu in stable condition having tolerated the procedure well with no complications. I was present and participated in all aspects of the procedure. The patient will be monitored in the PACU until transferred. Plan to monitor overnight. Will maintain catheter. Plan to follow-up in approximately 2-3 weeks with catheter removal and pathology I attest to the content of the Intraoperative Record and any orders documented therein. Any exceptions are noted below.
[2024-09-14 11:51] LABS: Basophils # (auto) 0.01 K/uL (0.00-0.20); Basophils % (auto) 0.2 %; Eosinophils # (auto) 0.04 K/uL (0.00-0.50); Eosinophils % (auto) 0.8 %; Hematocrit (blood only) 36.3 % (42.0-52.0); Hemoglobin 11.8 g/dl (14.0-18.0); Immature Granulocytes # (auto) 0.01 K/uL (0.01-0.20); Immature Granulocytes % (auto) 0.2 %; Lymphocytes # (auto) 1.61 K/uL (1.20-3.40); Lymphocytes % (auto) 32.8 %; Mean Corpuscular Hemoglobin 27.3 pg (25.0-34.0); Mean Corpuscular Hgb Conc 32.5 g/dL (32.0-36.0); Mean Platelet Volume 11.2 fL (9.4-12.4); Monocytes # (auto) 0.24 K/uL (0.11-0.59); Monocytes % (auto) 4.9 %; Neutrophils % (auto) 61.1 %; Platelet Count 134 K/uL (130-400); RDW Coefficient of Variation 14.8 % (11.5-14.5); RDW Standard Deviation 45.1 fL (36.4-46.3); Red Blood Count 4.32 M/uL (4.70-6.10); White Blood Count 4.91 K/ul (4.8-10.8)
[2024-09-14 12:03] LABS: Albumin Globulin Ratio 1.4 (0.9-2); Albumin Level 3.3 gm/dl (3.4-5.0); BUN Creatinine Ratio 17.2 (10-20); Bilirubin,Total 0.5 mg/dl (0.2-1.0); Calcium 8.2 mg/dl (8.6-10.3); Creatinine Clr Calc Pharmacy 48.4 ml/min; Globulin 2.4 gm/dl (2.5-4.0); Total Protein 5.7 gm/dl (6.0-8.3)
--- NOTE | 2024-09-14 12:33 | Anesthesiology Progress Note ---
Date of Service September 14, 2024 Anesthesia Post Procedure Vital Signs Vital Signs: Temp Pulse Pulse Resp BP Pulse Ox O2 Del Method 09/14/24 12:20 54 L 17 158/71 H 97 Room Air 09/14/24 12:05 53 L 17 154/69 H 97 Room Air 09/14/24 11:50 49 L 17 164/71 H 97 Room Air 09/14/24 11:40 36.4 C L 50 L 17 131/79 97 Room Air 09/14/24 11:30 50 L 17 161/70 H 99 Room Air 09/14/24 11:20 51 L 15 135/76 100 Oxymask 09/14/24 11:10 41 L 15 151/60 H 100 Oxymask 09/14/24 11:01 36.5 C 42 L 17 118/54 L 100 Oxymask 09/14/24 08:55 36.7 C 46 L 20 164/76 H 99 Room Air O2 Flow Rate 09/14/24 12:20 09/14/24 12:05 09/14/24 11:50 09/14/24 11:40 09/14/24 11:30 09/14/24 11:20 5 09/14/24 11:10 5 09/14/24 11:01 5 09/14/24 08:55 Transfer of Care Handoff Completed per policy Notes Mental Status: alert / awake / arousable Patient Amnestic to Procedure: Yes Nausea / Vomiting: adequately controlled Pain: adequately controlled Airway Patency, RR, SpO2: stable & adequate BP & HR: stable & adequate Hydration State: stable & adequate Anesthetic Complications: no major complications apparent and Pt Satisfied with anesthetic care
[2024-09-14] MEDS ORDERED: Nursing to Pharmacy Communication SCH (16:30)
[2024-09-14] MEDS: CIPROFLOXACIN / D5W 400 MG/200 ML BAG IV SCH ×2 (17:59→20:40)
--- NOTE | 2024-09-14 18:18 | Hospitalist Consultation ---
Date of Consultation September 14, 2024 Assessment & Plan (1) CAD (coronary artery disease): (2) Hypertension: (3) Diabetes mellitus, type 2: (4) PAF (paroxysmal atrial fibrillation): Plan 79 y/o with hematuria, bladder cancer and BPH who underwent TURBT and fulguration of the prostate today by Dr. Krishnamurthy. Procedure went as expected. Medical history of diet controlled DM, hypertension, CKD stage 3, PAF on apixaban, CAD, PAD # Bladder cancer s/p TURBT and fulguration of prostate, BPH -postop care per urology -khan, tamsulosin, cipro -apix/plavix - resume when OK per urologist # DM type 2 diet controlled - resolved with diet/exercise and recent A1c 5.5%. BG at goal today -DM diet, ordered PRN short acting insulin for elevated BG - CF 30 no CR -monitor BG response # PAF - currently bradycardic in mid/low 50s and asymptomatic -continue metoprolol, adjusted hold parameters -apixaban held - resume when OK per urologist # CAD - cath in 2019, [place] in 2019. Stable no chest pain -continue statin, metoprolol -resume plavix when ok per Dr. Krishnamurthy # HTN - hypertensive above goal today, potentially because of held meds. Lisinopril recently increased -continue metoprolol, amlodipine -resume lisinopril in AM -monitor response of BP # Leg edema, GROSS, worsening hypertension. Last Echo 2022 with normal EF and valves. Consider heart failure. Consider edema related to amlodipine. -BNP -consider adding diuretic, especially if BP remains uncontrolled -consider repeat Echo - can be outpatient -follow up with Erik Beltran # CKD stage 3 - stable, Cr at baseline -resume lisinopril, avoid nephrotoxins I checked his med list against the pharmacy database - is correct Counseled Radhames regarding the purposes of his different meds Hospital medicine will follow History of Present Illness Reason for Consultation: Evaluate Diabetes, Hypertension, Afib on anticoagulation Requesting Physician: Dr. Krishnamurthy Attending Physician: Faheem Krishnamurthy, II, DO History of Present Illness 79 y/o with hematuria, bladder tumor, BPH who underwent TURBT and fulguration of the prostate today by Dr. Krishnamurthy. Procedure went as expected. Medical history of diet controlled DM, hypertension, CKD stage 3, PAF on apixaban, CAD, PAD Radhames tolerated the procedure well, he has no bladder pain or spasms, his urine is only tinged pink with no clots remarkably clear. He has some chronic dyspnea on exertion and foot/ankle edema. He thinks the dyspnea is related to being out of shape previously he rode his bike frequently and walked a lot but this winter the ice affected his outdoor activity. He has no chest pain and does not get chest pain while exercising on his stationary bike. No nausea vomiting or abdominal pain. He used to have a lot of epistaxis when he was on higher dose apixaban so this was reduced to 2.5 twice daily, he is also on Plavix 75 mg twice daily which I confirmed with the pharmacy database. Both of these were held preop and continue to be held. He used to be on metformin but lost weight and has been off it. Recent A1c was 5.5%. He eats low carb and avoids sugar, did gain some weight this winter. He's been more hypertensive recently and lisinopril was increased from 10 --> 40. Allergies Allergy/AdvReac Type Severity Reaction Status Date / Time No Known Allergies Allergy Verified 09/14/24 08:57 Home Medications Medication Instructions Recorded Confirmed Type Bedside Commode #1 ea 12/19/22 07/21/24 Rx acetaminophen 325 mg tablet 650 mg (2 x 325 mg) PO Q4H PRN 12/26/22 09/14/24 Rx fever or pain #1 tab blood-glucose meter (OneTouch #1 ea 07/26/23 07/21/24 Rx Verio Flex Start kit) blood sugar diagnostic (OneTouch #50 ea 09/02/23 07/21/24 Rx Verio test strips) amlodipine 10 mg tablet 10 mg PO QAM #90 tabs 03/25/24 09/14/24 Rx atorvastatin 80 mg tablet 80 mg PO QAM #90 tabs 03/25/24 09/14/24 Rx metoprolol succinate 200 mg 200 mg PO BID #180 tabs 04/06/24 09/14/24 Rx tablet,extended release 24 hr apixaban 2.5 mg tablet 2.5 mg PO BID #180 tabs 07/21/24 09/14/24 Rx clopidogrel 75 mg tablet 75 mg PO BID #180 tabs 07/21/24 09/14/24 Rx lisinopril 40 mg tablet 40 mg PO DAILY #90 tabs 07/21/24 09/14/24 Rx multivitamin 1 tab PO QAM 09/01/24 09/14/24 History ciprofloxacin HCl 500 mg tablet 500 mg PO Q12H #14 tabs 09/14/24 Rx (Cipro) oxycodone-acetaminophen 7.5 mg-325 1 tab PO Q8H PRN pain 3 days #7 09/14/24 Rx mg tablet (Percocet) tabs phenazopyridine 200 mg tablet 200 mg PO Q8H PRN pain #10 tabs 09/14/24 Rx (Pyridium) tamsulosin 0.4 mg capsule 0.4 mg PO HS #30 caps 09/14/24 Rx Patient History Medical History History of COVID-19 (2022) resolved Bladder cancer dx 08/2022 History of anemia denies known current issues Diabetes diet controlled Leg edema, left chronic, denies change or worsening PAF (paroxysmal atrial fibrillation) patient denies, follows with Erik Beltran, taking Eliquis Dyslipidemia custodial (current) use of anticoagulants Venous (peripheral) insufficiency CAD (coronary artery disease) "Multi-Vessel CAD s/p Ostial and Proximal LAD NEVA x 2 and OM1 NEVA 07/01/2018 (with residual borderline D2 stenosis, OM2 stenosis, RCA/PDA stenoses which are felt amenable to complex PCI" follows with [facility] PAD (peripheral artery disease) Arthritis of knee, left Folate deficiency hx Myocardial Infarction 2019, follows with Erik Beltran Urinary retention Microscopic hematuria patient denies History of colon polyps Benign enlargement of prostate Low back pain occasional Tubular adenoma of colon hx Surgical History S/P ureteral stent placement History of open reduction and internal fixation (ORIF) procedure Lt. Femur History of cardiac cath ~3 years ago, "failed stress test, needed cath", [place] H/O colonoscopy 08/2016 Stented coronary artery ~3 years ago, [facility], following cath at [facility], [place], x1 stent (resolut summer) placed; now f/u Luis Manuel Beltran PA-C, [facility] [place] Cardio. Family History Father Non-Hodgkin's lymphoma Mother Multiple myeloma Sister Dyslipidemia Heart disease Hypertension Uncle Myocardial infarction Other No family history of adverse response to anesthesia Denies family history of Ovarian cancer Prostate cancer Breast cancer Colorectal cancer Social History Smoking Status: Former smoker Tobacco Type: Cigarettes Age Started Using Tobacco: 17; Age Quit Using Tobacco: 47; packs per day: 0.75; Smoking End Date: quit 1991; Second Hand Exposure: No; Do You Dip or Chew Tobacco: No; Tobacco Cessation Education Requested by Patient: No Hx Alcohol Use: No Hx Substance Use: No Preferred Language: Setswana Communication Ability: Effective Visual Impairment: Limited Hearing Ability: Normal Systems Mgr Required: No Beliefs That Will Affect Care: None marital status: Single Current Living Situation: Alone current occupational status: retired How many Children do You have: 0 Other Information That Helps Us Care for You: No Feels Safe at Home: Yes Safety Concerns: Feels Safe At This Time Childhood Exposure to Second-Hand Smoke: Yes caffeine: Yes Dental Care, Regularly: Yes Physical Activity Frequency: Daily Seatbelt Use: always Sunscreen Use: Yes Assistive Devices: Glasses Review of Systems 2 Review of Systems: All systems reviewed & are unremarkable except as noted in HPI & below Physical Exam 2 Physical Exam: Last 24h vitals reviewed GEN: no acute distress, sitting in bed, pleasant HEENT: pupils equal, sclerae anicteric, moist MM RESP: normal WOB, CTAB CV: reg no mrg, no JVD ABD: soft/nt/nd +BT : khan with light pink urine in bag, yellow in tubing, no clots SKIN: warm and dry, no generalized rashes EXT: wwp, 1-2+ foot and ankle edema, pitting, bilaterally NEURO: AOx person, place, and situation. Face symmetric, speech normal, moves 4 ext spontaneously and equally Results & Data Results & Data Vital Signs (Past 12 Hours) Vital Signs Temp Pulse Pulse Pulse Resp BP Pulse Ox 09/14/24 16:00 61 09/14/24 15:00 36.7 C 56 L 167/66 H 96 09/14/24 14:47 36.4 C L 09/14/24 14:05 56 L 16 148/67 H 98 09/14/24 13:05 56 L 17 150/67 H 98 09/14/24 12:50 55 L 17 169/82 H 95 09/14/24 12:35 54 L 17 157/71 H 97 09/14/24 12:20 54 L 17 158/71 H 97 09/14/24 12:05 53 L 17 154/69 H 97 09/14/24 11:50 49 L 17 164/71 H 97 09/14/24 11:40 36.4 C L 50 L 17 131/79 97 09/14/24 11:30 50 L 17 161/70 H 99 09/14/24 11:20 51 L 15 135/76 100 09/14/24 11:10 41 L 15 151/60 H 100 09/14/24 11:01 36.5 C 42 L 17 118/54 L 100 09/14/24 08:55 36.7 C 46 L 20 164/76 H 99 O2 Del Method O2 Flow Rate 09/14/24 16:00 09/14/24 15:00 Room Air 09/14/24 14:47 09/14/24 14:05 Room Air 09/14/24 13:05 Room Air 09/14/24 12:50 Room Air 09/14/24 12:35 Room Air 09/14/24 12:20 Room Air 09/14/24 12:05 Room Air 09/14/24 11:50 Room Air 09/14/24 11:40 Room Air 09/14/24 11:30 Room Air 09/14/24 11:20 Oxymask 5 09/14/24 11:10 Oxymask 5 09/14/24 11:01 Oxymask 5 09/14/24 08:55 Room Air Laboratory Results 09/14/24 11:22 09/14/24 11:22 Cr at recent baseline LFT normal Albumin low at 3.3 PG Care Time/CCT Total # of Minutes Spent Total Time Spent with Patient: Total time spent is greater than 50% in coordination of care (as documented) at patient's floor/unit and/or counseling patient: Coding Level of Care Code None Diagnoses Coronary artery disease involving craig coronary artery of craig heart without angina pectoris I25.10 Associated angina: without angina Coronary Disease-Associated Artery/Lesion type: craig artery [place] vs. 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 transplanted heart: craig heart Qualified Code(s): I25.10 - Atherosclerotic heart disease of craig coronary artery without angina pectoris (2) Hypertension Hypertension type: primary hypertension Qualified Code(s): I10 - Essential (primary) hypertension (3) Diabetes mellitus, type 2 Diabetes mellitus complication status: without complication Diabetes mellitus custodial insulin use: without custodial use Qualified Code(s): E11.9 - Type 2 diabetes mellitus without complications
[2024-09-14] MEDS ORDERED: CARBOHYDRATES FOR HYPOGLYCEMIA PO PRN (18:19)
[2024-09-14] MEDS ORDERED: GLUCOSE 40% GEL 15 GM TUBE PO PRN (18:19)
[2024-09-14] MEDS ORDERED: GLUCAGON FOR INJ 1 MG VIAL SQ PRN (18:19)
[2024-09-14] MEDS ORDERED: GLUCOSE 10 TAB/TUBE PO PRN (18:19)
[2024-09-14] MEDS ORDERED: DEXTROSE 50% 50 ML SYRINGE IV PRN (18:19)
[2024-09-14] MEDS: METOPROLOL SUCC 50MG EXT REL TAB PO SCH (18:51)
[2024-09-14] MEDS: INSULIN ASPART PER UNIT CHARGE SC SCH (20:40)
[2024-09-14] MEDS: DOCUSATE SODIUM 100 MG CAP PO SCH (20:40)
[2024-09-14 20:45] VITALS: O2SAT 97
[2024-09-14] MEDS ORDERED: METOPROLOL SUCC 50MG EXT REL TAB PO SCH (21:00)
[2024-09-15] MEDS: lisinopril 40 MG TAB PO SCH (08:34)
[2024-09-15] MEDS: ATORVASTATIN 40 MG TAB PO SCH (08:34)
[2024-09-15] MEDS: amLODIPine BESYLATE 5 MG TAB PO SCH (08:35)
--- NOTE | 2024-09-15 11:05 | Hospitalist Progress Note ---
Date of Service September 15, 2024 Assessment & Plan (1) CAD (coronary artery disease): (2) Hypertension: (3) Diabetes mellitus, type 2: (4) PAF (paroxysmal atrial fibrillation): Plan 79 y/o with hematuria, bladder cancer and BPH who underwent TURBT and fulguration of the prostate 09/[address] Krishnamurthy. Procedure went as expected. Medical history of diet controlled DM, hypertension, CKD stage 3, PAF on apixaban, CAD, PAD # Bladder cancer s/p TURBT and fulguration of prostate, BPH -postop care per urology - tamsulosin, cipro -apixiban/plavix - resume when OK per urologist Patient expressed frustration with how often he is having to be in the hospital/appointments - stating this is not living, just existing. How he has multiple medical bills and living off social security. Discussed with patient he has the option to not pursue treatment and able to refuse any part of his care. Not wanting to stop anything at present but would recommend continued goals of care discussions. # DM type 2 diet controlled - resolved with diet/exercise and recent A1c 5.5%. BG at goal today - continue SSI insulin, not needed to continue on discharge # PAF - SR 50-60s on monitor. Continue metorpolol. -apixaban held - resume when OK per urologist # CAD - cath in 2019, [place] in 2019. -continue statin, metoprolol -resume plavix when ok per Dr. Krishnamurthy # HTN - BPs acceptable -continue metoprolol, amlodipine and lisinopril BMP with adequate kidney function # Leg edema, GROSS, worsening hypertension. Last Echo 2022 with normal EF and valves. Consider heart failure. Consider edema related to amlodipine. -BNP elevated at 518 - however weight is stable and no oxygen requirement. Discussed need for repeat echo and possible with lasix - will defer to outpatient cardiology given recent prostate procedure and not wanting to cause KENDRICK. Discussed low salt diet and elevating legs, consider compression socks. Message sent to outpatient cardiology Provider. # CKD stage 3 - stable, Cr at baseline Dispo: medically stable Thank you for allowing us to participate in the care of this patient, please reach out with any questions or concerns. Medicine will sign off. Admission and Anticipated Discharge Date Admission Date: September 14, 2024 Subjective Patient seen this morning - frustrated with having a catheter - saying he is unable to live like this at home. Overall frustration with his cancer diagnosis and how much time he has to spend in the hospital. Discussed that he has the right to refuse treatment. Denies urinary pain Discussed swelling in his legs- no prior dx of HF but does have hx of LA. Discussed salt intake and elelavtion of legs. Review of Systems Review of Systems: All systems reviewed & are unremarkable except as noted in Subjective Physical Exam Physical Exam: General: NAD, VS as above Resp: normal respiratory effort, lungs clear to auscultation CV: RRR, no murmur, Abd: normal bowel sounds, non tender, no hepatosplenomegaly Extremities: Moves all extremities, 1+ pitting edema lower extremities, however this improved where he has socks Neuro: A&O x3, Results & Data Results & Data Vital Signs (Past 12 Hours) Vital Signs Temp Pulse Pulse Pulse Resp BP Pulse Ox 09/15/24 08:43 55 L 144/98 H 09/15/24 07:44 97.9 F 54 L 18 193/76 H 97 09/15/24 07:25 52 L 09/15/24 04:25 97.9 F 51 L 17 176/80 H 97 09/15/24 00:10 97.9 F 51 L 19 178/74 H 97 O2 Del Method 09/15/24 08:43 09/15/24 07:44 Room Air 09/15/24 07:25 09/15/24 04:25 Room Air 09/15/24 00:10 Room Air Laboratory Results bnp reviewed cbc and chemistry reviewed PG Care Time/CCT Total # of Minutes Spent Total Time Spent with Patient: Total time spent is greater than 50% in coordination of care (as documented) at patient's floor/unit and/or counseling patient: Coding Level of Care Code 72304 SUB INP/OBS CARE 3/50MIN Diagnoses Coronary artery disease involving kaibab coronary artery of kaibab heart without angina pectoris I25.10 Associated angina: without angina Coronary Disease-Associated Artery/Lesion type: kaibab artery [place] vs. transplanted heart: kaibab heart Primary hypertension I10 Hypertension type: primary hypertension Diabetes mellitus, type 2 E11.9 Diabetes mellitus complication status: without complication Diabetes mellitus mcfp insulin use: without weight tester use PAF (paroxysmal atrial fibrillation) I48.0 (1) CAD (coronary artery disease) Associated angina: without angina Coronary Disease-Associated Artery/Lesion type: kaibab artery [place] vs. transplanted heart: kaibab heart Qualified Code(s): I25.10 - Atherosclerotic heart disease of kaibab coronary artery without angina pectoris (2) Hypertension Hypertension type: primary hypertension Qualified Code(s): I10 - Essential (primary) hypertension (3) Diabetes mellitus, type 2 Diabetes mellitus complication status: without complication Diabetes mellitus weight tester insulin use: without mcfp use Qualified Code(s): E11.9 - Type 2 diabetes mellitus without complications
[2024-09-15 11:25] VITALS: BP 178/99; RESP 17
--- NOTE | 2024-09-15 11:31 | Urology Progress Note ---
Date of Service September 15, 2024 Assessment & Plan (1) Bladder cancer: Plan: POD #1 s/p Transurethral Resection Bladder Tumor large, Fulguration of the Prostatic Varicosity Patient afebrile, hemodynamically stable Patient subjectively doing well Hospital medicine following, appreciate medical assistance Kennedy catheter was removed today for voiding trial Patient is ready for discharge after appropriately voiding If he is unable to void or has elevated PVR, then recommend replacement of Kennedy catheter Course of antibiotics sent Plan to resume apixaban and Plavix in 1 to 2 days if urine is clear, patient instructed to call office for further instruction if urine is bloody Expected clinical course reviewed, all questions answered Will arrange postoperative follow-up for pathology review Admission and Anticipated Discharge Date Admission Date: September 14, 2024 Subjective Patient seen and examined at bedside. He is awake and standing up in room. He reports he is doing well. Denies pain. He wanted the catheter out this morning. Dr. Krishnamurthy approved Kennedy catheter removal for void trial. Review of Systems Constitutional: as per Subjective / HPI Genitourinary: + as per Subjective / HPI Physical Exam Constitutional: well developed and well nourished; no acute distress Respiratory: normal respiratory effort; no respiratory distress and no labored breathing Gastrointestinal (Abdomen): Inspection/Auscultation: abdomen normal to inspection Musculoskeletal: Head/Neck/Chest: normocephalic Neurologic: moves all extremities and awake Psychiatric: Orientation: alert and oriented x 3 Results & Data Vital Signs (Past 12 Hours) Vital Signs Temp Pulse Pulse Pulse Resp BP Pulse Ox 09/15/24 11:24 36.9 C 56 L 17 178/99 H 09/15/24 08:43 55 L 144/98 H 09/15/24 07:44 36.6 C 54 L 18 193/76 H 97 09/15/24 07:25 52 L 09/15/24 04:25 36.6 C 51 L 17 176/80 H 97 09/15/24 00:10 36.6 C 51 L 19 178/74 H 97 O2 Del Method 09/15/24 11:24 Room Air 09/15/24 08:43 09/15/24 07:44 Room Air 09/15/24 07:25 09/15/24 04:25 Room Air 09/15/24 00:10 Room Air PG Care Time/CCT Total # of Minutes Spent Total Time Spent with Patient: Total time spent is greater than 50% in coordination of care (as documented) at patient's floor/unit and/or counseling patient: Coding Level of Care Code None Diagnoses Bladder cancer C67.9
[2024-09-15 11:57] VITALS: TEMP 97.3
[2024-09-15 12:45] VITALS: PULSE 55
--- NOTE | 2024-09-15 15:44 | Discharge Summary ---
Date of Service September 15, 2024 Admission HPI Per Admitting Provider Patient with history of bladder cancer here for TURBT. Principal Diagnosis Bladder cancer Discharge Exam Constitutional well developed and well nourished; no acute distress Respiratory normal respiratory effort; no respiratory distress and no labored breathing Gastrointestinal (Abdomen) Inspection/Auscultation: abdomen normal to inspection Musculoskeletal Head/Neck/Chest: normocephalic Neurologic moves all extremities and awake Psychiatric Orientation: alert and oriented x 3 Discharge Data Allergies Allergy/AdvReac Type Severity Reaction Status Date / Time No Known Allergies Allergy Verified 09/14/24 08:57 Consultations 09/14/24 10:03 Consult Hospitalist Routine Procedures Performed Operation Date: 09/14/24 10:15 Actual Procedures p Transurethral Resection Bladder Tumor large, Fulgration of the Prostate(Not Applicable) - Faheem Krishnamurthy, DO Hospital Course (1) Bladder cancer: POD #1 s/p Transurethral Resection Bladder Tumor large, Fulguration of the Prostatic Varicosity Patient afebrile, hemodynamically stable Patient subjectively doing well Hospital medicine following, appreciate medical assistance Kennedy catheter was removed today for voiding trial Patient is ready for discharge after appropriately voiding If he is unable to void or has elevated PVR, then recommend replacement of Kennedy catheter Course of antibiotics sent Plan to resume apixaban and Plavix in 1 to 2 days if urine is clear, patient i nstructed to call office for further instruction if urine is bloody Expected clinical course reviewed, all questions answered Will arrange postoperative follow-up for pathology review Total Time Total Time Spent Total Time Spent (In Minutes): 25 Discharge Plan Discharge Items Patient Disposition: Home - Self-Care Reason For Visit: Bladder Cancer Discharge Diagnosis: Bladder cancer Activity: Per Instructions section Bathing Comment: Okay to shower after discharge Sexual Activity: Wait until after follow-up appointment Exercise/Sports: Wait until after follow-up appointment Non-emergency contact: Urologist Call non-emergency contact if: your pain is not controlled and you have a fever Follow-up/Referrals: Delmi Nuno MD [Primary Care Provider] - 09/18/24 3:00 pm (Hospital follow up on Saturday, September 18 at 3 pm.) Diet: Regular Addtl Attending Provider Instructions: The surgery you had was cystoscopy. Okay to resume regular diet. You can resume your apixaban and Plavix in 1 to 2 days if your urine is clear to pink, call office for further instruction if your urine is bloody. Please take all medications as prescribed and keep all follow-ups as scheduled. Please call our office at [phone] with any questions, concerns or need to reschedule appointments for any reason. We are happy to assist you. Medications: please resume your normal medications as previously prescribed. Antibiotics and medications for pain control were prescribed. For pain, it is ok to take tylenol alternating with ibuprofen. You can also take AZO, which can be purchased [id number] at the drugstore. Be aware this turns your urine a bright orange color. If you are prescribed a stronger medication you can take this according to instructions on the label. What to expect after your procedure: You may notice debris in your urine over the next few days. Drink plenty of liquids to help flush your system. You may notice some blood in your urine. You have a catheter in place - this will need to be removed. As long as the catheter is in place, you may see some blood in the urine. You may have pain in your pelvis or in your side when you urinate. When to call [facility] at [phone]: Fever of 101F or higher Heavy bleeding Pain that is not controlled with medicine Uncontrolled vomiting Problems with catheter Pending Studies at Discharge: Yes Stand-Alone Forms: My [facility] Medications and DC Order Prescriptions: New phenazopyridine [Pyridium] 200 mg tablet 200 mg PO Q8H PRN (Reason: pain) Qty: 10 0RF tamsulosin 0.4 mg capsule 0.4 mg PO HS Qty: 30 0RF oxycodone-acetaminophen [Percocet] 7.5-325 mg tablet 1 tab PO Q8H PRN (Reason: pain) 3 Days Qty: 7 0RF ciprofloxacin HCl [Cipro] 500 mg tablet 500 mg PO Q12H Qty: 14 0RF Continued (DME) Bedside Commode [facility] See Rx Instructions .Route Qty: 1 0RF Rx Instructions: As directed (DME) blood-glucose meter [OneTouch Verio Flex Start] Kit See Rx Instructions .Route Qty: 1 0RF Rx Instructions: Check blood sugar twice daily metoprolol succinate 200 mg tablet extended release 24 hr 200 mg PO BID Qty: 180 3RF (DME) OneTouch Verio test strips Strip See Rx Instructions .Route Qty: 50 1RF Rx Instructions: Test daily As directed apixaban 2.5 mg tablet 2.5 mg PO BID Qty: 180 3RF clopidogrel 75 mg tablet 75 mg PO BID Qty: 180 3RF lisinopril 40 mg tablet 40 mg PO DAILY Qty: 90 3RF amlodipine 10 mg tablet 10 mg PO QAM Qty: 90 3RF atorvastatin 80 mg tablet 80 mg PO QAM Qty: 90 3RF acetaminophen 325 mg Tablet 650 mg PO Q4H PRN (Reason: fever or pain) Qty: 1 0RF multivitamin Tablet 1 tab PO QAM Discharge Orders: Discharge Order (Routine); Ordered 09/14/24 Ordered By: Faheem Hernandez/Other Patient Handouts: Resources for People with Cancer, Understanding Bladder Cancer, Bladder Cancer TUR, Radiation Therapy Treatment Admission Data Admit Date/Time: 09/14/24 10:03 Attending Provider: Faheem Krishnamurthy Admit Provider: Faheem Krishnamurthy Primary Care Provider: Delmi Nuno Other Providers: Jovani Carr Other Interventions: Discharge Summary Assessment (RN) Last Done: 09/15/24 12:43 Coding Level of Care Code 65295 IN/OBS DISCH 30 MIN/LESS Diagnoses Bladder cancer C67.9
== END 2024-09-15 13:06 | disposition home or self-care (01) ==
LOC: ASU 08:47 → PACUINP 08:47 → 2E 15:06

== ENCOUNTER 2024-11-23 14:49 | Inpatient (IN) ==
--- NOTE | 2024-11-23 15:18 | Electrocardiogram Report ---
Test Reason : Blood Pressure : */* mmHG Vent. Rate : 74 BPM Atrial Rate : 74 BPM P-R Int : 138 ms QRS Dur : 82 ms QT Int : 390 ms P-R-T Axes : -14 -12 -33 degrees QTcB Int : 432 ms Sinus rhythm with frequent Premature ventricular complexes in a pattern of bigeminy Inferior infarct , age undetermined Abnormal ECG When compared with ECG of 25-Oct-2024 14:45, Inferior infarct is now Present T wave inversion now evident in Inferior leads Confirmed by Hola Easley ([id number]) on 11/23/2024 3:17:51 PM Referred By: Confirmed By: Hola Easley
[2024-11-23] MEDS: SODIUM CHLORIDE 0.9% 500 ML IV ONE (15:19)
--- NOTE | 2024-11-23 15:26 | Emergency Department Note ---
Impression & Plan KENDRICK (acute kidney injury), Nephrostomy present, Fall, Ambulatory dysfunction, Complicated urinary tract infection ED Provider Note NAME: RAKEL DELA CRUZ AGE: 79 SEX: M : 1945 ARRIVES VIA: Ambulance INFORMANT: Patient ED PROVIDER(S): Julito Caban MD CHIEF COMPLAINT: Weakness, fall 2 days ago, prolonged downtime, referred. PLAN: Disposition: Admit MEDICAL DECISION MAKING: The patient is a pleasant 79-year-old gentleman with a past medical history of paroxysmal atrial fibrillation on Eliquis, hypertension, hyperlipidemia, CAD, history of bladder cancer status post bilateral nephrostomy who presents to the emergency department via EMS for evaluation of prolonged downtime after a fall 2 days ago. Patient reports he tripped over his rug in his home but could not get up due to generalized weakness. He denies any head strike or loss of consciousness. He denies any new neck or back pain. He reports he has had some soreness of his right nephrostomy tube after having an exchange within the past 2 weeks per his report. Patient reports that he was unable to call for help as he did not have his phone with him but he has home health aide came for her routine visit today and found him on the ground. He reports some left buttock pain which is chronic and not necessarily from his fall. Patient reports he does use a walker. On evaluation the patient is in no distress, with temperature of 37.9, blood pressure 190/60s and vital signs otherwise stable. He appears clinically dry. He is moving all extremities equally with generalized weakness without focal deficits. Head is atraumatic. There is no midline CTL spine tenderness with patient or step-offs. EKG without overt acute ischemia. CXR negative for acute cardiopulmonary process per my personal preliminary review/interpretation. WBC within normal limits. There is no neutrophilia or left shift. H/H 11.3/34.5 decreased from a month ago with MCV of 86, nonspecific. Chemistry without metabolic acidosis. Creatinine 1.93, decreased from recent values though suspect reflecting component of KENDRICK given baseline values in September were normal. Lactic acid 1.1, within the limits. Procalcitonin is not elevated. LFTs are unremarkable. Lipase is 85, marginally above normal. CPK is not elevated. Urine samples obtained and analysis performed for right and left nephrostomies, respectively. Right nephrostomy sample demonstrates positive nitrites, leukoesterase, WBCs and 4+ bacteria. CT of the abdomen pelvis was performed and evidence of enteritis is described. Bilateral nephrostomy tubes are also noted with resolution of prior hydronephrosis. Urinary bladder thickening likely related to patient's history of bladder cancer. Inflammatory changes along the left ureter are nonspecific. Patient agrees with plan for admission. Case was discussed with Dr. Mathews, [facility] hospitalist, who will evaluate the patient for admission. Blood cultures obtained and empiric treatment for urinary infection initiated with ceftriaxone and daptomycin per review of prior cultures. Further management per admitting team. Triage Nursing notes reviewed and agree them. Prior/external medical records reviewed Vital Signs: reviewed Differential diagnosis: Infection, dehydration, metabolic abnormality, hypo/hyperglycemia, electrolyte disturbance, anemia, hypoxia, cardiac sources, intracerebral event, toxicologic, neurologic, as well as other pathologies. ER treatment provided: See below. Diagnostics interpreted by me: ECG: Sinus rhythm, 74 bpm, frequent PVCs and pattern of bigeminy, no overt ST elevation or depression, QTc 432, QRS 82. Cardiac Monitoring: An order for continuous cardiac monitoring was placed and demonstrated sinus rhythm, 74 bpm, frequent PVCs. Laboratory studies: See below Imaging studies: See below Consultation(s): Case was discussed with Dr. Mathews, [facility] hospitalist, who will evaluate the patient for admission. HPI: Per MDM. ROS: See above HPI for pertinent positives & negatives. A total of 10 systems reviewed and were otherwise negative. VITALS:See Below PHYSICAL EXAMINATION: GENERAL: Awake, alert, chronically ill-appearing, in no distress HENT: Normocephalic, atraumatic. Oropharynx with dry mucous membranes and otherwise unremarkable. EYES: Normal conjunctiva. Sclera non-icteric. EOMI. No nystamgus. PEARRL. NECK: Supple. No nuchal rigidity. FROM. No JVD. No midline tenderness to palpation or step-offs. RESPIRATORY: Clear to auscultation. CARDIAC: Regular rate, normal rhythm. Extremities warm and well perfused. Pulses equal. ABDOMEN: Soft, non-distended. No tenderness to palpation. No rebound or guarding. No masses. MUSCULOSKELETAL: Chest examination reveals no tenderness. The back is symmetrical on inspection without obvious abnormality. No midline tenderness palpation or step-offs. There is no CVA tenderness to palpation. No joint edema. LOWER EXTREMITIES: Calves are equal size bilaterally and non-tender. No edema. No discoloration. NEURO: Cranial nerves II-XII grossly intact. Generalized weakness without focal extremity deficits. SKIN: No rash or jaundice noted. Julito Caban MD Past Med/Surg History Problem List (Updated 11/24/24 @ 01:05 by Julito Caban MD) Complicated urinary tract infection (Acute) Ambulatory dysfunction (Acute) Fall (Acute) KENDRICK (acute kidney injury) (Acute) Nephrostomy present (Acute) PAD (peripheral artery disease) Venous insufficiency (chronic) (peripheral) PAF (paroxysmal atrial fibrillation) Urinary incontinence Diabetes mellitus, type 2 NIDDM Bladder cancer (Acute) newly diagnosed 08/2022. 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 Venous (peripheral) insufficiency CAD (coronary artery disease) "Multi-Vessel CAD s/p Ostial and Proximal LAD NEVA x 2 and OM1 NEVA 07/01/2018 (with residual borderline D2 stenosis, OM2 stenosis, RCA/PDA stenoses which are felt amenable to complex PCI" follows with [facility] PAD (peripheral artery disease) Arthritis of knee, left Folate deficiency hx Myocardial Infarction 2019, follows with Erik Beltran Urinary retention Microscopic hematuria patient denies History of colon polyps Benign enlargement of prostate Low back pain occasional Tubular adenoma of colon hx Surgical History S/P ureteral stent placement History of open reduction and internal fixation (ORIF) procedure Lt. Femur History of cardiac cath ~3 years ago, "failed stress test, needed cath", [place] H/O colonoscopy 08/2016 Stented coronary artery ~3 years ago, [facility], following cath at [facility], x1 stent (resolut summer) placed; now f/u Luis Manuel Beltran PA-C, [facility] Cardio. Family History Father Non-Hodgkin's lymphoma Mother Multiple myeloma Sister Dyslipidemia Heart disease Hypertension Uncle Myocardial infarction Other No family history of adverse response to anesthesia Denies family history of Ovarian cancer Prostate cancer Breast cancer Colorectal cancer Social History Smoking Status: Former smoker Tobacco Type: Cigarettes Age Started Using Tobacco: 17; Age Quit Using Tobacco: 47; packs per day: 0.75; Second Hand Exposure: No; Do You Dip or Chew Tobacco: No; Hx Alcohol Use: No Hx Substance Use: No Preferred Language: Ecuadorean Communication Ability: Effective Visual Impairment: Limited Hearing Ability: Normal Cosmetic Assembler Required: No Beliefs That Will Affect Care: None marital status: Single Current Living Situation: Alone current occupational status: retired How many Children do You have: 0 Feels Safe at Home: Yes Childhood Exposure to Second-Hand Smoke: Yes caffeine: Yes Dental Care, Regularly: Yes Physical Activity Frequency: Daily Seatbelt Use: always Sunscreen Use: Yes Assistive Devices: Cane, Glasses, Walker and Other Allergies Allergies Allergy/AdvReac Type Severity Reaction Status Date / Time No Known Allergies Allergy Verified 11/23/24 17:43 Home Meds Home Medications Medication Instructions Recorded Confirmed acetaminophen 500 mg tablet 500 mg PO Q6H PRN Pain 11/23/24 11/23/24 apixaban 2.5 mg tablet (Eliquis) 0 mg PO BID 11/23/24 11/23/24 aspirin 81 mg tablet,delayed 81 mg PO DAILY 11/23/24 11/23/24 release clopidogrel 75 mg tablet 0 mg PO BID 11/23/24 11/23/24 metoprolol succinate 100 mg 100 mg PO DAILY 11/23/24 11/23/24 tablet,extended release 24 hr oxybutynin chloride 5 mg tablet 5 mg PO TID 11/23/24 11/23/24 Previous Rx's Medication Instructions Recorded Bedside Commode #1 ea 12/19/22 blood-glucose meter (OneTouch #1 ea 07/26/23 Verio Flex Start kit) blood sugar diagnostic (OneTouch #50 ea 09/02/23 Verio test strips) atorvastatin 80 mg tablet 80 mg PO QAM #90 tabs 03/25/24 Results & Data (ED) Vital Signs Vital Signs - 24 hr 11/23/24 15:07 11/23/24 15:10 11/23/24 15:15 Temperature 37.9 C H Temperature Source Oral Pulse Rate 76 79 76 Pulse Rate [Apical] Pulse Rhythm Regular Regular Pulse Rhythm [Apical] Pulse Strength Normal Pulse Strength [Apical] Respiratory Rate 22 20 Respiratory Effort / Characteristics Non-Labored Spontaneous Respiratory Depth Normal Respiratory Pattern Regular Blood Pressure 191/62 H Blood Pressure [Right Arm] Blood Pressure Mean 105 Blood Pressure Mean [Right Arm] Blood Pressure Position Lying Blood Pressure Position [Right Arm] Pulse Oximetry 98 97 Oxygen Delivery Method Room Air Room Air Sepsis Recent Fever Within 48 Hours Yes Sepsis New/Unexplained Change in Mental Status No Sepsis Action Taken by Nursing No Action Required 11/23/24 17:00 11/23/24 18:42 11/23/24 19:12 Temperature Temperature Source Pulse Rate 62 Pulse Rate [Apical] 71 66 Pulse Rhythm Pulse Rhythm [Apical] Regular Regular Pulse Strength Pulse Strength [Apical] Normal Normal Respiratory Rate 20 20 Respiratory Effort / Characteristics Non-Labored Spontaneous Non-Labored Spontaneous Respiratory Depth Normal Normal Respiratory Pattern Regular Regular Blood Pressure Blood Pressure [Right Arm] 143/99 H 168/75 H Blood Pressure Mean Blood Pressure Mean [Right Arm] 113 106 Blood Pressure Position Blood Pressure Position [Right Arm] Lying Lying Pulse Oximetry 96 93 Oxygen Delivery Method Room Air Room Air Sepsis Recent Fever Within 48 Hours Sepsis New/Unexplained Change in Mental Status Sepsis Action Taken by Nursing 11/23/24 19:31 Temperature Temperature Source Pulse Rate 64 Pulse Rate [Apical] Pulse Rhythm Pulse Rhythm [Apical] Pulse Strength Pulse Strength [Apical] Respiratory Rate Respiratory Effort / Characteristics Respiratory Depth Respiratory Pattern Blood Pressure 191/87 H Blood Pressure [Right Arm] Blood Pressure Mean 104 Blood Pressure Mean [Right Arm] Blood Pressure Position Blood Pressure Position [Right Arm] Pulse Oximetry Oxygen Delivery Method Sepsis Recent Fever Within 48 Hours Sepsis New/Unexplained Change in Mental Status Sepsis Action Taken by Nursing Laboratory Data Attestation: I reviewed the patient's lab results. 11/23/24 15:00 11/23/24 15:00 Lab Results 07/14/25 07/14/25 Range/Units 15:00 17:54 WBC 8.46 (4.8-10.8) K/ul RBC 3.97 L (4.70-6.10) M/uL Hgb 11.3 L (14.0-18.0) g/dl Hct 34.5 L (42.0-52.0) % MCV 86.9 (80.0-100.0) fL MCH 28.5 (25.0-34.0) pg MCHC 32.8 (32.0-36.0) g/dL RDW Std Deviation 53.2 H (36.4-46.3) fL RDW Coeff of Elsi 16.7 H (11.5-14.5) % Plt Count 157 (130-400) K/uL MPV 10.6 (9.4-12.4) fL Immature Gran % (Auto) 0.4 % Neut % (Auto) 73.2 % Lymph % (Auto) 18.8 % [place] % (Auto) 7.0 % Eos % (Auto) 0.1 % Baso % (Auto) 0.5 % Neut # (Auto) 6.20 (1.40-6.50) K/uL Lymph # (Auto) 1.59 (1.20-3.40) K/uL [place] # (Auto) 0.59 (0.11-0.59) K/uL Eos # (Auto) 0.01 (0.00-0.50) K/uL Baso # (Auto) 0.04 (0.00-0.20) K/uL Immature Gran # (Auto) 0.03 (0.01-0.20) K/uL PT 11.0 (9.0-12.0) Seconds INR 1.0 (0.9-1.1) APTT 32 H (21-31) Seconds PTT Ratio 1.2 Sodium 140 (136-145) mmol/L Potassium 3.8 (3.5-5.1) mmol/L Chloride 107 (98-107) mmol/L Carbon Dioxide 24 (21-32) mmol/L Anion Gap 9 (3-11) BUN 22 (6-23) mg/dl Creatinine 1.93 H (0.6-1.4) mg/dl Est Cr Clr Drug Dosing 31.0 ml/min eGFR 35.21 BUN/Creatinine Ratio 11.4 (10-20) Glucose 82 (70-99(Fasting)) mg/dl Calcium 8.4 L (8.6-10.3) mg/dl Total Bilirubin 0.9 (0.2-1.0) mg/dl Direct Bilirubin 0.2 (0-0.2) mg/dl AST 17 (13-39) U/L ALT 7 (7-52) U/L Alkaline Phosphatase 71 (34-104) U/L Total Creatine Kinase 163 (30-223) U/L Total Protein 7.2 (6.0-8.3) gm/dl Albumin 3.3 L (3.4-5.0) gm/dl Globulin 3.9 (2.5-4.0) gm/dl Albumin/Globulin Ratio 0.8 L (0.9-2) Lipase 85 H (11-82) U/L Procalcitonin 0.23 (0-0.5) ng/ml Urine Color Yellow Urine Appearance Turbid A (Clear) Urine pH 5.5 (4.5-7.5) Ur Specific [place] 1.011 (1.000-1.030) Urine Protein 2+ H (Negative) Urine Glucose (UA) Negative (Negative) Urine Ketones 1+ H (Negative) Urine Blood 2+ H (Negative) Urine Nitrite Positive A (Negative) Urine Bilirubin Negative (Negative) Urine Urobilinogen Negative (Negative) Ur Leukocyte Esterase 3+ H (Negative) Urine WBC (Auto) >50 H (0-5) /hpf Urine RBC (Auto) 6-10 H (0-2) /hpf U Hyaline Cast (Auto) >20 H (0-2) /lpf U Epithel Cells (Auto) 0-2 (0-2) /hpf Urine Bacteria (Auto) 4+ H (None Seen) Urine Comment Administered Medications Apixaban (Apixaban 2.5 Mg Tab) 2.5 mg PO BID [facility] Stop: 12/23/24 22:47 Last Admin: 11/24/24 00:06 Dose: 2.5 mg Documented By: KATE Sodium Chloride (Nss) 1,000 mls @ 80 mls/hr IV .[id number] MITCH Stop: 11/24/24 07:59 Last Admin: 11/23/24 20:34 Dose: 80 mls/hr Documented By: RIGOBERTO Oxybutynin Chloride (Oxybutynin Chloride 5 Mg Tab) 5 mg PO TID MITCH Stop: 12/23/24 22:47 Last Admin: 11/24/24 00:06 Dose: 5 mg Documented By: KATE Discontinued Medications Sodium Chloride (Nss) 500 mls @ 999 mls/hr IV .Q31M ONE Stop: 11/23/24 15:40 Last Infusion: 11/23/24 16:28 Dose: Infused Documented By: Admin: 11/23/24 15:19 Dose: 999 mls/hr Documented By: SAÚL Ceftriaxone Sodium (Rocephin) 2,000 mg in 50 mls @ 100 mls/hr IV NOW STA Stop: 11/23/24 19:39 Last Infusion: 11/23/24 20:53 Dose: Infused Documented By: Admin: 11/23/24 20:17 Dose: 100 mls/hr Documented By: RIGOBERTO Daptomycin 700 mg/ Syringe 14 mls @ 7 mls/min IV NOW ONE; Protocol Stop: 11/23/24 19:21 Last Admin: 11/23/24 20:17 Dose: 7 mls/min Documented By: RIGOBERTO Pantoprazole Sodium (Pantoprazole 40 Mg Tab) 40 mg PO NOW STA Stop: 11/23/24 19:49 Last Admin: 11/23/24 20:18 Dose: 40 mg Documented By: RIGOBERTO Imaging Data Radiologist's Impression: Chest X-Ray 11/23/24 15:10 XR chest 1V portable CLINICAL HISTORY: Trauma COMPARISON STUDY: 10/25/2024 FINDINGS: Heart size and pulmonary vasculature are normal. Likely skinfold artifact overlies the upper chest bilaterally. No consolidation or pleural effusion seen. No pneumothorax. IMPRESSION: No acute findings. ACT 112: Negative or not required by law. Electronically signed by: Jose Tucker M.D. 11/23/2024 3:46 PM Pelvis X-Ray 11/23/24 15:12 XR pelvis 1-2V routine CLINICAL HISTORY: trauma COMPARISON: 12/24/2022 and 10/25/2024 FINDINGS: There is a stable old fracture proximal left femur. No acute fracture or dislocation seen at the pelvis or hips. Stable moderate degenerative changes at the left hip and lower lumbar spine. IMPRESSION: No acute fracture seen. ACT 112: Negative or not required by law. Electronically signed by: Jose Tucker M.D. 11/23/2024 3:48 PM Abdomen/Pelvis CT 11/23/24 16:07 CT ABDOMEN and PELVIS without INTRAVENOUS CONTRAST HISTORY: Abdominal pain TECHNIQUE: CT abdomen and pelvis without contrast. IV CONTRAST: None ENTERIC CONTRAST: None. COMPARISON:CT abdomen pelvis October 25, 2024 FINDINGS: LOWER CHEST: LIVER: No focal lesion identified in this noncontrast study. GALLBLADDER/BILIARY: Unremarkable gallbladder. No abnormal biliary dilatation. SPLEEN: Unremarkable. PANCREAS: Unremarkable. ADRENALS: Unremarkable. KIDNEYS: Bilateral percutaneous nephrostomy tubes with loops in the renal pelvi. No stones or hydronephrosis identified. PERITONEUM/RETROPERITONEUM. No lymphadenopathy by size criteria. No aortic aneurysm. Extensive atherosclerosis with stenoses of the celiac trunk, the SMA, the renal arteries and the [place]. GASTROINTESTINAL: No obstruction. Multiple loops of small bowel demonstrate mild inflammatory changes wall thickening. There is a large quantity of fluid within the large bowel. Normal appendix is seen. REPRODUCTIVE: Enlarged prostate gland with coarse calcifications. URINARY BLADDER: Wall thickening that is somewhat eccentric along the right lateral and posterior daily. ABDOMINAL WALL: Small fat-containing left inguinal hernia. BONES: No acute findings. Nonspecific tiny sclerotic foci in the pelvic bones. IMPRESSION: No evidence of acute trauma to the abdomen or the pelvis. Findings suggesting enteritis. Large quantity of fluid in the large bowel may clinically correlate with diarrhea. Etiology is nonspecific and may be infectious/inflammatory although ischemic etiology is a possibility as well given the extensive atherosclerosis. Prostamegaly. Bilateral percutaneous nephrostomy tubes. Hydronephrosis has resolved. Wall thickening the urinary bladder that is somewhat eccentric. This could be due to cystitis however if there is concern for malignancy, cystoscopy may be considered. Inflammatory changes are also seen along the left ureter that is mildly distended. Ureteritis could be also present. Electronically signed by Minesh Flores 11-23-2024 6:[address] 11/23/24 16:07 CT CERVICAL SPINE WITHOUT CONTRAST: HISTORY: TRAUMA TECHNIQUE: Noncontrast CT examination of the cervical spine is performed. Coronal and sagittal reformats were created. COMPARISON: None FINDINGS: CERVICAL SPINE: There is no significant vertebral body height loss. No acute traumatic fracture identified. Nonspecific sclerotic foci in the cervical spine osseous elements. There is no significant spondylolisthesis. Multilevel degenerative changes characterized by disc osteophyte complex, bilateral facet and uncovertebral hypertrophy resulting and neural foraminal narrowing at multiple levels, worst at [id number] spine. Visualized soft tissues of neck demonstrate atherosclerotic changes of the carotid arteries. Visualized lung apex is clear. IMPRESSION: No acute traumatic fracture of the cervical spine. Multilevel degenerative changes as above Electronically signed by Minesh Flores 11-23-2024 6:[address] 11/23/24 16:07 Clinical History: Fall Technique: Axial computed tomography images were obtained of the brain without intravenous contrast. Findings: There is diffuse cerebral atrophy, within expected limits for the patient's age. Areas of decreased attenuation are seen within the periventricular white matter, likely representing chronic small vessel ischemic disease. There is no definite sign of acute or old infarction. No intracranial hemorrhage is evident. No definite mass lesion is seen on this noncontrast examination. There is no midline shift or other form of herniation. No hydrocephalus is seen. No fracture is identified. The orbits and the visualized paranasal sinuses appear unremarkable. The mastoid air cells appear clear. Impression: 1. Cerebral atrophy and chronic small vessel ischemic disease 2. Otherwise unremarkable noncontrast CT of the brain Electronically signed by Kyler Arana 11-23-2024 5:28 PM Discharge Plan Visit Data Chief Complaint: Fall Stated Complaint: FALL, ED Provider: Julito Caban Discharge Problem: KENDRICK (acute kidney injury), Nephrostomy present, Fall, Ambulatory dysfunction, Complicated urinary tract infection Patient Disposition: Admitted As Inpatient Condition: Fair Discharge Instructions Interventions: ED Discharge Assessment Last Done: 11/23/24 21:45 Discharge Problem: Fall Qualifiers: Encounter type: initial encounter Qualified Code(s): W19.XXXA - Unspecified fall, initial encounter
[2024-11-23 15:42] LABS: Hematocrit (blood only) 34.5 % (42.0-52.0); Hemoglobin 11.3 g/dl (14.0-18.0); Immature Granulocytes # (auto) 0.03 K/uL (0.01-0.20); Immature Granulocytes % (auto) 0.4 %; Mean Corpuscular Hemoglobin 28.5 pg (25.0-34.0); Mean Corpuscular Volume 86.9 fL (80.0-100.0); Platelet Count 157 K/uL (130-400); RDW Standard Deviation 53.2 fL (36.4-46.3); Red Blood Count 3.97 M/uL (4.70-6.10); White Blood Count 8.46 K/ul (4.8-10.8)
--- NOTE | 2024-11-23 15:48 | XRay Report ---
XR chest 1V portable CLINICAL HISTORY: Trauma COMPARISON STUDY: 10/25/2024 FINDINGS: Heart size and pulmonary vasculature are normal. Likely skinfold artifact overlies the uppe r chest bilaterally. No consolidation or pleural effusion seen. No pneumothorax. IMPRESSION: No acute findings. ACT 112: Negative or not required by law. Electronically signed by: Jose Tucker M.D. 11/23/2024 3:46 PM
--- NOTE | 2024-11-23 15:49 | XRay Report ---
XR pelvis 1-2V routine CLINICAL HISTORY: trauma COMPARISON: 12/24/2022 and 10/25/2024 FINDINGS: There is a stable old fracture proximal left femur. No acute fracture or dislocation seen at the pelvis or hips. Stable moderate degenerative changes at the left hip and lower lumbar spine. IMPRESSION: No acute fracture seen. ACT 112: Negative or not required by law. Electronically signed by: Jose Tucker M.D. 11/23/2024 3:48 PM
[2024-11-23 15:56] LABS: Alanine Aminotransferase 7.0 U/L (7-52); Albumin Globulin Ratio 0.8 (0.9-2); Alkaline Phosphatase 71.0 U/L (34-104); Anion Gap 9.0 (3-11); Bilirubin,Total 0.9 mg/dl (0.2-1.0); Blood Urea Nitrogen 22.0 mg/dl (6-23); Calcium 8.4 mg/dl (8.6-10.3); Carbon Dioxide 24.0 mmol/L (21-32); Chloride 107.0 mmol/L (98-107); Creatine Kinase 163.0 U/L (30-223); Creatinine Clr Calc Pharmacy 31.0 ml/min; Globulin 3.9 gm/dl (2.5-4.0); Glucose 82.0 mg/dl (70-99(Fasting)); Lipase 85.0 U/L (11-82); Potassium 3.8 mmol/L (3.5-5.1); Sodium 140.0 mmol/L (136-145); Total Protein 7.2 gm/dl (6.0-8.3)
[2024-11-23 16:37] LABS: INR 1.0 (0.9-1.1); Partial Thromboplastin Time 32 Seconds (21-31); Prothrombin Time 11.0 Seconds (9.0-12.0)
--- NOTE | 2024-11-23 17:29 | CT Scan Report ---
Clinical History: Fall Technique: Axial computed tomography images were obtained of the brain without intravenous contrast. Findings: There is diffuse cerebral atrophy, within expected limits for the patient's age. Areas of decreased attenuation are seen within the periventricular white matter, likely representing chronic small vessel ischemic disease. There is no definite sign of acute or old infarction. No intracranial hemorrhage is evident. No definite mass lesion is seen on this noncontrast examination. There is no midline shift or other form of herniation. No hydrocephalus is seen. No fracture is identified. The orbits and the visualized paranasal sinuses appear unremarkable. The mastoid air cells appear clear. Impression: 1. Cerebral atrophy and chronic small vessel ischemic disease 2. Otherwise unremarkable noncontrast CT of the brain Electronically signed by Kyler Arana 11-23-2024 5:28 PM
--- NOTE | 2024-11-23 18:04 | CT Scan Report ---
CT ABDOMEN and PELVIS without INTRAVENOUS CONTRAST HISTORY: Abdominal pain TECHNIQUE: CT abdomen and pelvis without contrast. IV CONTRAST: None ENTERIC CONTRAST: None. COMPARISON:CT abdomen pelvis October 25, 2024 FINDINGS: LOWER CHEST: LIVER: No focal lesion identified in this noncontrast study. GALLBLADDER/BILIARY: Unremarkable gallbladder. No abnormal biliary dilatation. SPLEEN: Unremarkable. PANCREAS: Unremarkable. ADRENALS: Unremarkable. KIDNEYS: Bilateral percutaneous nephrostomy tubes with loops in the renal pelvi. No stones or hydronephrosis identified. PERITONEUM/RETROPERITONEUM. No lymphadenopathy by size criteria. No aortic aneurysm. Extensive atherosclerosis with stenoses of the celiac trunk, the SMA, the renal arteries and the [place]. GASTROINTESTINAL: No obstruction. Multiple loops of small bowel demonstrate mild inflammatory changes wall thickening. There is a large quantity of fluid within the large bowel. Normal appendix is seen. REPRODUCTIVE: Enlarged prostate gland with coarse calcifications. URINARY BLADDER: Wall thickening that is somewhat eccentric along the right lateral and posterior daily. ABDOMINAL WALL: Small fat-containing left inguinal hernia. BONES: No acute findings. Nonspecific tiny sclerotic foci in the pelvic bones. IMPRESSION: No evidence of acute trauma to the abdomen or the pelvis. Findings suggesting enteritis. Large quantity of fluid in the large bowel may clinically correlate with diarrhea. Etiology is nonspecific and may be infectious/inflammatory although ischemic etiology is a possibility as well given the extensive atherosclerosis. Prostamegaly. Bilateral percutaneous nephrostomy tubes. Hydronephrosis has resolved. Wall thickening the urinary bladder that is somewhat eccentric. This could be due to cystitis however if there is concern for malignancy, cystoscopy may be considered. Inflammatory changes are also seen along the left ureter that is mildly distended. Ureteritis could be also present. Electronically signed by Minesh Flores 11-23-2024 6:03 PM
--- NOTE | 2024-11-23 18:04 | CT Scan Report ---
CT CERVICAL SPINE WITHOUT CONTRAST: HISTORY: TRAUMA TECHNIQUE: Noncontrast CT examination of the cervical spine is performed. Coronal and sagittal reformats were created. COMPARISON: None FINDINGS: CERVICAL SPINE: There is no significant vertebral body height loss. No acute traumatic fracture identified. Nonspecific sclerotic foci in the cervical spine osseous elements. There is no significant spondylolisthesis. Multilevel degenerative changes characterized by disc osteophyte complex, bilateral facet and uncovertebral hypertrophy resulting and neural foraminal narrowing at multiple levels, worst at [id number] spine. Visualized soft tissues of neck demonstrate atherosclerotic changes of the carotid arteries. Visualized lung apex is clear. IMPRESSION: No acute traumatic fracture of the cervical spine. Multilevel degenerative changes as above Electronically signed by Minesh Flores 11-23-2024 6:03 PM
[2024-11-23 18:34] LABS: Appearance Urine Turbid (Clear); Bacteria Urine Automated 4+ (None Seen); Cast Urine Automated >20 /lpf (0-2); Epithelial Cell Urine Auto 0-2 /hpf (0-2); Glucose Urine UA Negative (Negative); WBC Urine Automated >50 /hpf (0-5)
--- NOTE | 2024-11-23 19:51 | History & Physical Report ---
Date of Service November 23, 2024 Assessment & Plan (1) Complicated urinary tract infection: (2) Nephrostomy present: (3) PAF (paroxysmal atrial fibrillation): (4) Diabetes mellitus, type 2: (5) CAD (coronary artery disease): Plan The patient is a 79-year-old male with past medical history including paroxysmal atrial fibrillation, PAD, bilateral nephrostomy tubes, venous insufficiency, urinary incontinence, diabetes mellitus type 2, bladder cancer, CAD, dyslipidemia and hypertension. He was found on the floor at home by home health, and reports that he had fallen 2 days previously, and was too weak to get up. Workup in the emergency department included a CT scan which suggested cystitis, left ureteritis, and notes bilateral nephrostomy tubes present. Urinalysis is consistent with a urinary tract infection. Of note also, patient is routinely to be on apixaban 2.5 mg twice daily, however, pharmacy notes that he has called refills and since August 04, but has not picked them up. Complicated urinary tract infection/bilateral nephrostomy tubes present/left ureteritis- Patient with history of coag negative staph infection on 07/30/2023 that will require daptomycin IV Follow urine culture and sensitivity Daptomycin IV and ceftriaxone IV Acute kidney injury- Creatinine 1.93 Patient has had more significant increases in creatinine above 11 recently, however, a return to his baseline was not tested for Baseline on 10/25/2024 was 1.28 Patient's status post 500 mL normal saline from the ED Placed on NSS at 80 mL/h x 1 additional liter Repeat CBC with differential, chemistry profile and magnesium levels in a.m. Continue oxybutynin CAD/PAD/PAF- Patient per pharmacy notes has been calling in refills for apixaban, but has not had it filled at least since August 04 Unsure if he has been taking his other medications as directed as well Will place him on apixaban 2.5 mg p.o. twice daily for treatment of above and for DVT prophylaxis Hold aspirin Plavix is listed as 75 mg p.o. twice daily, but will place him on 75 mg every morning Will change metoprolol succinate from 100 mg every morning to 50 mg p.o. every morning with hold parameters History of Present Illness Chief Complaint: The patient presents to the emergency department after being found on the floor of his house. Patient reports that he had a mechanical fall where he slipped, and was too weak to get up on his own. Patient reports he has not eaten or had anything to drink for 2 days. He was found at home by home health, they come to see him on a routine visit. Primary Care Provider: Delmi Nuno MD The patient is a 79-year-old male with past medical history including paroxysmal atrial fibrillation, PAD, bilateral nephrostomy tubes, venous insufficiency, urinary incontinence, diabetes mellitus type 2, bladder cancer, CAD, dyslipidemia and hypertension. He was found on the floor at home by home health, and reports that he had fallen 2 days previously, and was too weak to get up. Workup in the emergency department included a CT scan which suggested cystitis, left ureteritis, and notes bilateral nephrostomy tubes present. Uri nalysis is consistent with a urinary tract infection. Of note also, patient is routinely to be on apixaban 2.5 mg twice daily, however, pharmacy notes that he has called refills and since August 04, but has not picked them up Allergies Allergy/AdvReac Type Severity Reaction Status Date / Time No Known Allergies Allergy Verified 11/23/24 17:43 Home Medications Medication Instructions Recorded Confirmed Type Bedside Commode #1 ea 12/19/22 10/14/24 Rx blood-glucose meter (OneTouch #1 ea 07/26/23 10/14/24 Rx Verio Flex Start kit) blood sugar diagnostic (OneTouch #50 ea 09/02/23 10/14/24 Rx Verio test strips) atorvastatin 80 mg tablet 80 mg PO QAM #90 tabs 03/25/24 11/23/24 Rx acetaminophen 500 mg tablet 500 mg PO Q6H PRN Pain 11/23/24 11/23/24 History apixaban 2.5 mg tablet (Eliquis) 0 mg PO BID 11/23/24 11/23/24 History aspirin 81 mg tablet,delayed 81 mg PO DAILY 11/23/24 11/23/24 History release clopidogrel 75 mg tablet 0 mg PO BID 11/23/24 11/23/24 History metoprolol succinate 100 mg 100 mg PO DAILY 11/23/24 11/23/24 History tablet,extended release 24 hr oxybutynin chloride 5 mg tablet 5 mg PO TID 11/23/24 11/23/24 History Past Med/Surg History Problem List (Updated 11/19/24 @ 12:04 by Svitlana Underwood MD) Nephrostomy present PAD (peripheral artery disease) Venous insufficiency (chronic) (peripheral) PAF (paroxysmal atrial fibrillation) Urinary incontinence Diabetes mellitus, type 2 NIDDM Bladder cancer (Acute) newly diagnosed 08/2022. Anemia CAD (coronary artery disease) "Multi-Vessel CAD s/p Ostial and Proximal LAD NEVA x 2 and OM1 NEVA 07/01/2018 (with residual borderline D2 stenosis, OM2 stenosis, RCA/PDA stenoses which are felt amenable to complex PCI" follows with [place] [facility] Dyslipidemia Hypertension Medical History History of COVID-19 (2022) resolved Bladder cancer dx 08/2022 History of anemia denies known current issues Diabetes diet controlled Leg edema, left chronic, denies change or worsening PAF (paroxysmal atrial fibrillation) patient denies, follows with Erik Beltran, taking Eliquis Dyslipidemia FDC (current) use of anticoagulants Venous (peripheral) insufficiency CAD (coronary artery disease) "Multi-Vessel CAD s/p Ostial and Proximal LAD NEVA x 2 and OM1 NEVA 07/01/2018 (with residual borderline D2 stenosis, OM2 stenosis, RCA/PDA stenoses which are felt amenable to complex PCI" follows with [facility] PAD (peripheral artery disease) Arthritis of knee, left Folate deficiency hx Myocardial Infarction 2019, follows with Erik Ruby Urinary retention Microscopic hematuria patient denies History of colon polyps Benign enlargement of prostate Low back pain occasional Tubular adenoma of colon hx Surgical History S/P ureteral stent placement History of open reduction and internal fixation (ORIF) procedure Lt. Femur History of cardiac cath ~3 years ago, "failed stress test, needed cath", [place] H/O colonoscopy 08/2016 Stented coronary artery ~3 years ago, [facility], following cath at [facility], x1 stent (resolut summer) placed; now f/u Luis Manuel Beltran PA-C, [facility] Cardio. Family History Father Non-Hodgkin's lymphoma Mother Multiple myeloma Sister Dyslipidemia Heart disease Hypertension Uncle Myocardial infarction Other No family history of adverse response to anesthesia Denies family history of Ovarian cancer Prostate cancer Breast cancer Colorectal cancer Social History Smoking Status: Former smoker Tobacco Type: Cigarettes Age Started Using Tobacco: 17; Age Quit Using Tobacco: 47; packs per day: 0.75; Second Hand Exposure: No; Do You Dip or Chew Tobacco: No; Hx Alcohol Use: No Hx Substance Use: No Preferred Language: Moldovan Communication Ability: Effective Visual Impairment: Limited Hearing Ability: Normal Commercial Plumber Required: No Beliefs That Will Affect Care: None marital status: Single Current Living Situation: Alone current occupational status: retired How many Children do You have: 0 Feels Safe at Home: Yes Childhood Exposure to Second-Hand Smoke: Yes caffeine: Yes Dental Care, Regularly: Yes Physical Activity Frequency: Daily Seatbelt Use: always Sunscreen Use: Yes Assistive Devices: Glasses Review of Systems Review of Systems: The patient denies chest pain, palpitations, shortness of breath, dyspnea on exertion, cough, lower extremity swelling, sore throat, fevers, chills, sweats, nausea, vomiting, diarrhea , constipation, abdominal pain, pelvic pain, blood in urine or stool, dysuria, urinary frequency or urgency, lightheadedness, dizziness, headache, rash, abnormal bruising or bleeding, focal weakness, numbness or tingling in arms or legs, generalized arthralgias or myalgias, back or neck pain, or night sweats. The review of systems is otherwise negative other than for that already noted above, and at least 10 systems have been reviewed. Physical Exam Physical Exam: The patient is awake, alert and oriented 3, well developed and well nourished, normocephalic and atraumatic, lying in bed and in no acute distress. HEENT--PERRL, EOMI, mucous membranes and oropharynx mildly dry. Neck--supple. No JVD. No bruits. Thyroid normal, trachea midline, no adenopathy. Heart--normal S1 and S2. No murmurs, rubs or gallops. Lungs--clear bilaterally, no respiratory distress, no accessory muscle use. Abdomen--normal bowel sounds and soft. Nontender. Nondistended Extremities--no cyanosis or clubbing. No edema. Dermatologic--normal skin turgor, normal color, no abnormal lymph nodes, no rash. Neurologic--cranial nerves II through XII grossly intact. Rheumatologic--normal range of motion. Psychiatric--normal affect. Results & Data Results & Data Vital Signs (Past 12 Hours) Vital Signs Temp Pulse Pulse Resp BP BP Pulse Ox 11/23/24 19:12 62 11/23/24 18:42 66 20 168/75 H 93 11/23/24 17:00 71 20 143/99 H 96 11/23/24 15:15 76 11/23/24 15:10 79 20 97 11/23/24 15:07 37.9 C H 76 22 191/62 H 98 O2 Del Method 11/23/24 19:12 11/23/24 18:42 Room Air 11/23/24 17:00 Room Air 11/23/24 15:15 11/23/24 15:10 Room Air 11/23/24 15:07 Room Air Laboratory Results Laboratory Results WBC 8.46 K/ul (4.8-10.8) 11/23/24 15:00 RBC 3.97 M/uL (4.70-6.10) L 11/23/24 15:00 Hgb 11.3 g/dl (14.0-18.0) L 11/23/24 15:00 Hct 34.5 % (42.0-52.0) L 11/23/24 15:00 MCV 86.9 fL (80.0-100.0) 11/23/24 15:00 MCH 28.5 pg (25.0-34.0) 11/23/24 15:00 MCHC 32.8 g/dL (32.0-36.0) 11/23/24 15:00 RDW Std Deviation 53.2 fL (36.4-46.3) H 11/23/24 15:00 RDW Coeff of Elsi 16.7 % (11.5-14.5) H 11/23/24 15:00 Plt Count 157 K/uL (130-400) 11/23/24 15:00 MPV 10.6 fL (9.4-12.4) 11/23/24 15:00 Immature Gran % (Auto) 0.4 % 11/23/24 15:00 Neut % (Auto) 73.2 % 11/23/24 15:00 Lymph % (Auto) 18.8 % 11/23/24 15:00 Craig % (Auto) 7.0 % 11/23/24 15:00 Eos % (Auto) 0.1 % 11/23/24 15:00 Baso % (Auto) 0.5 % 11/23/24 15:00 Neut # (Auto) 6.20 K/uL (1.40-6.50) 11/23/24 15:00 Lymph # (Auto) 1.59 K/uL (1.20-3.40) 11/23/24 15:00 Craig # (Auto) 0.59 K/uL (0.11-0.59) 11/23/24 15:00 Eos # (Auto) 0.01 K/uL (0.00-0.50) 11/23/24 15:00 Baso # (Auto) 0.04 K/uL (0.00-0.20) 11/23/24 15:00 Immature Gran # (Auto) 0.03 K/uL (0.01-0.20) 11/23/24 15:00 PT 11.0 Seconds (9.0-12.0) 11/23/24 15:00 INR 1.0 (0.9-1.1) 11/23/24 15:00 APTT 32 Seconds (21-31) H 11/23/24 15:00 PTT Ratio 1.2 11/23/24 15:00 Sodium 140 mmol/L (136-145) 11/23/24 15:00 Potassium 3.8 mmol/L (3.5-5.1) 11/23/24 15:00 Chloride 107 mmol/L (98-107) 11/23/24 15:00 Carbon Dioxide 24 mmol/L (21-32) 11/23/24 15:00 Anion Gap 9 (3-11) 11/23/24 15:00 BUN 22 mg/dl (6-23) 11/23/24 15:00 Creatinine 1.93 mg/dl (0.6-1.4) H 11/23/24 15:00 Est Cr Clr Drug Dosing 31.0 ml/min 11/23/24 15:00 eGFR 35.21 11/23/24 15:00 BUN/Creatinine Ratio 11.4 (10-20) 11/23/24 15:00 Glucose 82 mg/dl (70-99(Fasting)) 11/23/24 15:00 Calcium 8.4 mg/dl (8.6-10.3) L 11/23/24 15:00 Total Bilirubin 0.9 mg/dl (0.2-1.0) 11/23/24 15:00 Direct Bilirubin 0.2 mg/dl (0-0.2) 11/23/24 15:00 AST 17 U/L (13-39) 11/23/24 15:00 ALT 7 U/L (7-52) 11/23/24 15:00 Alkaline Phosphatase 71 U/L (34-104) 11/23/24 15:00 Total Creatine Kinase 163 U/L (30-223) 11/23/24 15:00 Total Protein 7.2 gm/dl (6.0-8.3) 11/23/24 15:00 Albumin 3.3 gm/dl (3.4-5.0) L 11/23/24 15:00 Globulin 3.9 gm/dl (2.5-4.0) 11/23/24 15:00 Albumin/Globulin Ratio 0.8 (0.9-2) L 11/23/24 15:00 Lipase 85 U/L (11-82) H 11/23/24 15:00 Procalcitonin 0.23 ng/ml (0-0.5) 11/23/24 15:00 Urine Color Yellow 11/23/24 17:54 Urine Appearance Turbid (Clear) A 11/23/24 17:54 Urine pH 5.5 (4.5-7.5) 11/23/24 17:54 Ur Specific [place] 1.011 (1.000-1.030) 11/23/24 17:54 Urine Protein 2+ (Negative) H 11/23/24 17:54 Urine Glucose (UA) Negative (Negative) 11/23/24 17:54 Urine Ketones 1+ (Negative) H 11/23/24 17:54 Urine Blood 2+ (Negative) H 11/23/24 17:54 Urine Nitrite Positive (Negative) A 11/23/24 17:54 Urine Bilirubin Negative (Negative) 11/23/24 17:54 Urine Urobilinogen Negative (Negative) 11/23/24 17:54 Ur Leukocyte Esterase 3+ (Negative) H 11/23/24 17:54 Urine WBC (Auto) >50 /hpf (0-5) H 11/23/24 17:54 Urine RBC (Auto) 6-10 /hpf (0-2) H 11/23/24 17:54 U Hyaline Cast (Auto) >20 /lpf (0-2) H 11/23/24 17:54 U Epithel Cells (Auto) 0-2 /hpf (0-2) 11/23/24 17:54 Urine Bacteria (Auto) 4+ (None Seen) H 11/23/24 17:54 Urine Comment 11/23/24 17:54 Impressions Chest X-Ray 11/23/24 15:10 XR chest 1V portable CLINICAL HISTORY: Trauma COMPARISON STUDY: 10/25/2024 FINDINGS: Heart size and pulmonary vasculature are normal. Likely skinfold artifact overlies the upper chest bilaterally. No consolidation or pleural effusion seen. No pneumothorax. IMPRESSION: No acute findings. ACT 112: Negative or not required by law. Electronically signed by: Jose Tucker M.D. 11/23/2024 3:46 PM Pelvis X-Ray 11/23/24 15:12 XR pelvis 1-2V routine CLINICAL HISTORY: trauma COMPARISON: 12/24/2022 and 10/25/2024 FINDINGS: There is a stable old fracture proximal left femur. No acute fracture or dislocation seen at the pelvis or hips. Stable moderate degenerative changes at the left hip and lower lumbar spine. IMPRESSION: No acute fracture seen. ACT 112: Negative or not required by law. Electronically signed by: Jose Tucker M.D. 11/23/2024 3:48 PM Abdomen/Pelvis CT 11/23/24 16:07 CT ABDOMEN and PELVIS without INTRAVENOUS CONTRAST HISTORY: Abdominal pain TECHNIQUE: CT abdomen and pelvis without contrast. IV CONTRAST: None ENTERIC CONTRAST: None. COMPARISON:CT abdomen pelvis October 25, 2024 FINDINGS: LOWER CHEST: LIVER: No focal lesion identified in this noncontrast study. GALLBLADDER/BILIARY: Unremarkable gallbladder. No abnormal biliary dilatation. SPLEEN: Unremarkable. PANCREAS: Unremarkable. ADRENALS: Unremarkable. KIDNEYS: Bilateral percutaneous nephrostomy tubes with loops in the renal pelvi. No stones or hydronephrosis identified. PERITONEUM/RETROPERITONEUM. No lymphadenopathy by size criteria. No aortic aneurysm. Extensive atherosclerosis with stenoses of the celiac trunk, the SMA, the renal arteries and the [place]. GASTROINTESTINAL: No obstruction. Multiple loops of small bowel demonstrate mild inflammatory changes wall thickening. There is a large quantity of fluid within the large bowel. Normal appendix is seen. REPRODUCTIVE: Enlarged prostate gland with coarse calcifications. URINARY BLADDER: Wall thickening that is somewhat eccentric along the right lateral and posterior daily. ABDOMINAL WALL: Small fat-containing left inguinal hernia. BONES: No acute findings. Nonspecific tiny sclerotic foci in the pelvic bones. IMPRESSION: No evidence of acute trauma to the abdomen or the pelvis. Findings suggesting enteritis. Large quantity of fluid in the large bowel may clinically correlate with diarrhea. Etiology is nonspecific and may be infectious/inflammatory although ischemic etiology is a possibility as well given the extensive atherosclerosis. Prostamegaly. Bilateral percutaneous nephrostomy tubes. Hydronephrosis has resolved. Wall thickening the urinary bladder that is somewhat eccentric. This could be due to cystitis however if there is concern for malignancy, cystoscopy may be considered. Inflammatory changes are also seen along the left ureter that is mildly distended. Ureteritis could be also present. Electronically signed by Minesh Flores 11-23-2024 6:[address] 11/23/24 16:07 CT CERVICAL SPINE WITHOUT CONTRAST: HISTORY: TRAUMA TECHNIQUE: Noncontrast CT examination of the cervical spine is performed. Coronal and sagittal reformats were created. COMPARISON: None FINDINGS: CERVICAL SPINE: There is no significant vertebral body height loss. No acute traumatic fracture identified. Nonspecific sclerotic foci in the cervical spine osseous elements. There is no significant spondylolisthesis. Multilevel degenerative changes characterized by disc osteophyte complex, bilateral facet and uncovertebral hypertrophy resulting and neural foraminal narrowing at multiple levels, worst at [id number] spine. Visualized soft tissues of neck demonstrate atherosclerotic changes of the carotid arteries. Visualized lung apex is clear. IMPRESSION: No acute traumatic fracture of the cervical spine. Multilevel degenerative changes as above Electronically signed by Minesh Flores 11-23-2024 6:[address] 11/23/24 16:07 Clinical History: Fall Technique: Axial computed tomography images were obtained of the brain without intravenous contrast. Findings: There is diffuse cerebral atrophy, within expected limits for the patient's age. Areas of decreased attenuation are seen within the periventricular white matter, likely representing chronic small vessel ischemic disease. There is no definite sign of acute or old infarction. No intracranial hemorrhage is evident. No definite mass lesion is seen on this noncontrast examination. There is no midline shift or other form of herniation. No hydrocephalus is seen. No fracture is identified. The orbits and the visualized paranasal sinuses appear unremarkable. The mastoid air cells appear clear. Impression: 1. Cerebral atrophy and chronic small vessel ischemic disease 2. Otherwise unremarkable noncontrast CT of the brain Electronically signed by Kyler Arana 11-23-2024 5:28 PM Code Status & VTE Plan Code Status Full code VTE Prophylaxis Plan VTE Prophylaxis will be ordered: Yes PG Care Time/CCT Total # of Minutes Spent Total Time Spent with Patient: Total time spent is greater than 50% in coordination of care (as documented) at patient's floor/unit and/or counseling patient: Coding Level of Care Code 24909 INT INP/OBS CARE 3/75MIN Diagnoses Complicated urinary tract infection N39.0 Nephrostomy present Z93.6 PAF (paroxysmal atrial fibrillation) I48.0 Diabetes mellitus, type 2 E11.9 Diabetes mellitus complication status: without complication Diabetes mellitus correction insulin use: without correction use Coronary artery disease involving [place] coronary artery of [place] heart without angina pectoris I25.10 Coronary Disease-Associated Artery/Lesion type: [place] artery [place] vs. transplanted heart: [place] heart Associated angina: without angina (4) Diabetes mellitus, type 2 Diabetes mellitus complication status: without complication Diabetes mellitus intermission coordinator insulin use: without correction use Qualified Code(s): E11.9 - Type 2 diabetes mellitus without complications (5) CAD (coronary artery disease) Coronary Disease-Associated Artery/Lesion type: [place] artery [place] vs. transplanted heart: [place] heart Associated angina: without angina Qualified Code(s): I25.10 - Atherosclerotic heart disease of [place] coronary artery without angina pectoris
[2024-11-23] MEDS: cefTRIAXone SODIUM 2,000 MG/50 ML BAG IV STA (20:17)
[2024-11-23] MEDS: DAPTOmycin 700 MG in SYRINGE 0 ML IV ONE (20:17)
[2024-11-23] MEDS: SODIUM CHLORIDE 0.9% 1,000 ML IV SCH (20:34)
[2024-11-23] MEDS ORDERED: ONDANSETRON INJ 2 MG/ML 2 ML VIAL IV PRN (22:48)
[2024-11-23] MEDS ORDERED: ACETAMINOPHEN 500 MG TAB PO PRN (22:48)
[2024-11-24] MEDS: APIXABAN 2.5 MG TAB PO SCH (00:06)
[2024-11-24 06:33] LABS: Hematocrit (blood only) 32.8 % (42.0-52.0); Hemoglobin 10.4 g/dl (14.0-18.0); Immature Granulocytes # (auto) 0.02 K/uL (0.01-0.20); Immature Granulocytes % (auto) 0.3 %; Mean Corpuscular Hemoglobin 27.9 pg (25.0-34.0); Mean Corpuscular Volume 87.9 fL (80.0-100.0); Platelet Count 139 K/uL (130-400); RDW Standard Deviation 54.3 fL (36.4-46.3); Red Blood Count 3.73 M/uL (4.70-6.10); White Blood Count 7.23 K/ul (4.8-10.8)
[2024-11-24 06:52] LABS: Alanine Aminotransferase 6.0 U/L (7-52); Albumin Globulin Ratio 0.8 (0.9-2); Alkaline Phosphatase 58.0 U/L (34-104); Anion Gap 8.0 (3-11); Bilirubin,Total 0.4 mg/dl (0.2-1.0); Blood Urea Nitrogen 22.0 mg/dl (6-23); Calcium 7.9 mg/dl (8.6-10.3); Carbon Dioxide 23.0 mmol/L (21-32); Chloride 110.0 mmol/L (98-107); Creatinine Clr Calc Pharmacy 35.6 ml/min; Globulin 3.4 gm/dl (2.5-4.0); Glucose 78.0 mg/dl (70-99(Fasting)); Magnesium 2.0 mg/dl (1.7-2.4); Potassium 3.6 mmol/L (3.5-5.1); Sodium 141.0 mmol/L (136-145); Total Protein 6.2 gm/dl (6.0-8.3)
[2024-11-24] MEDS: cefTRIAXone SODIUM 2,000 MG/50 ML BAG IV SCH (08:57)
[2024-11-24] MEDS: CLOPIDOGREL BISULFATE 75 MG TAB PO SCH (08:58)
[2024-11-24] MEDS: METOPROLOL SUCC 50MG EXT REL TAB PO SCH (08:58)
[2024-11-24] MEDS ORDERED: ATORVASTATIN 40 MG TAB PO SCH (09:00)
--- NOTE | 2024-11-24 17:23 | Hospitalist Progress Note ---
Date of Service November 24, 2024 Assessment & Plan (1) Complicated urinary tract infection: Plan: Patient remains afebrile with a non-toxic genito-urinary exam. WBC remains normal: WBC 8.46, N73 L19 M7 B1 (11/23/2024, 3:00pm). WBC 7.23, N69 L23 M7 E2 (11/24/2024, 6:12am). Patient has no complaints of dysuria, hematuria, frequency, urgency, flank pain, N/V/D, abdominal pain, pelvic pain on 11/24/2024. cf., urine culture (10/25/2024, 5:00pm): Tati glabrata cf., urine culture (07/30/2023, 8:06am): coagulase negative Staphylococcus cf., urine culture (06/10/2023, 2:33pm): Tati glabrata complex cf., urine culture (05/20/2023, 10:03am): Corynebacteria species, not urealyticum cf., urine culture (03/29/2023, 9:16am): Yeast, not Tati albicans/dubliniensis cf., urine culture (02/27/2023, 6:07pm): Klebsiella pneumoniae #1, Klebsiella pneumoniae #2 cf., urine culture (02/27/2025, 5:11pm): Klebsiella pneumoniae cf., urine culture (02/27/2025, 5:11pm): Klebsiella pneumoniae cf., urine culture (02/27/2025, 5:00pm): Klebsiella pneumoniae #1, Klebsiella pneumoniae #2 cf., urine culture (12/13/2022, 3:01pm): Yeast, not Tati albicans/dubli niensis cf., urine culture (11/29/2022, ? time ): Yeast, not Tati albicans/dubliniensis cf., urine culture (11/29/2022, ? time ): Citrobacter freundii; yeast, not Tati albicans/dubliniensis cf., urine culture (11/26/2022, 3:02am): yeast, not Tati albicans/dubliniensis cf., urine culture (10/30/2022, 6:40am): Tati glabrata complex cf., urine culture (09/14/2022, 10:06am): yeast, not Tati albicans/dubliniensis s/p daptomycin 700mg IV x 1 dose (11/23/2024, 8:17pm), ceftriaxone 2g IV x 1 dose (11/23/2024, 8:17pm) in [facility] ER. Continue daptomycin 700mg IV daily (day #2/7 on 11/24/2024, 8:00pm); ceftriaxone 2g IV daily (day #2/7 on 11/24/2024, 8:57am) in [facility] Med-Surg bed #N286-1. D/C'd patient's home-scheduled oxybutynin 5mg PO daily (last administered on 11/24/2024, 12:06am) as this anti-cholinergic medication promotes urinary retention, thereby increasing the risk for this patient to develop an acute, complicated UTI. Check vitals, genito-urinary exam, WBC w/diff, lactic acid, procalcitonin, urine culture (11/23/2024, 5:54pm), blood culture #1 (11/24/2024, 7:50pm), and blood culture #2 (11/23/2024, 8:02pm) in the 11/25/2024 am. (2) KENDRICK (acute kidney injury): Plan: cf., BUN 22, creatinine 1.93, GFR 35.21 (11/23/2024, 3:00pm). cf., BUN 22, creatinine 1.57, GFR 45.11 (11/24/2024, 6:12am). 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 Ladan Garcia). s/p problems with coordinating administration of BCG 50mg instillation @ [facility] ([address] [facility], [place] [address]) in the past; s/p BCG 50mg instillations (05/02/2023 (first dose of 6 doses); 06/10/2023). s/p TURBT and fulguration of bladder lesion; s/p TURP (02/17/2024, 8:35am), [facility] Urologist Dr. Faheem Krishnamurthy). s/p TURBT and fulguration of prostatic varicosity (09/14/2024, 10:15am, [facility] Urologist Dr. Faheem Krishnamurthy). (4) Nephrostomy present: Plan: Bilateral nephrostomies in situ with expression of copious volumes of urine on 11/24/2024. Hydronephrosis has RESOLVED (as reported on 11/23/2024, 4:07pm CT abd/pelvis without IV contrast). (5) PAF (paroxysmal atrial fibrillation): Plan: cf., admission EKG (11/23/2024, 3:00pm): NSR @ 74, FL 138, QTC 432, multiple PVC, no acute ST depressions/elevations, TWI (by my review). Continue rate-control utilizing home-scheduled metoprolol succinate 50mg PO qam (6) Diabetes mellitus, type 2: Plan: Long-term glycemic control remains unknown despite HbA1c 5.5% (09/01/2024, 11:24am), which might suggest, at first glance, that patient's long-term glycemic control is excellent. The reason that long-term glycemic control remains unknown is that this patient is also anemic at the same time that he is diabetic. In anemic states, increased RBC turnover leads to concomitant reductions in both Hb and HbA1c levels. Hence, attention turns towards serum glucose levels: cf., glucose 82 mg/dL (11/23/2024, 3:00pm). cf., glucose 78 mg/dL (11/24/2024, 6:12am). (7) CAD (coronary artery disease): Plan: Hold off secondary prophylaxis against CAD utilizing home-scheduled atorvastatin 80mg PO qam given patient's complaints of fall at home alone and remaining on floor at home alone for 2 days with patient subsequently reporting myalgias. Fortunately, patient has not developed acute rhabdomyolysis: cf., normal CK 163 U/L (11/23/2024, 3:00pm). However, patient's normal CK 163 U/L (11/23/2024, 3:00pm) is higher than patient's baseline CK range of 95 U/L (08/30/2021, 7:12am) to 52 U/L (11/26/2022, 12:09am). (8) Ambulatory dysfunction: Plan: Await PT/OT/Case Mgm't Service evaluations in the 11/25/2024 am, to determine if patient can be discharged back to his home safely, or if patient is better served with discharge to SNF for short-term rehab. Of note, patient insists that he is not going to any SNF for short-term rehab, irrespective of what PT/OT Service evaluations may recommend. Patient reports that he is being discharged back to his home. Plan The patient is a 79-year-old male with past medical history including paroxysmal atrial fibrillation, PAD, bilateral nephrostomy tubes, venous insufficiency, urinary incontinence, diabetes mellitus type 2, bladder cancer, CAD, dyslipidemia and hypertension. He was found on the floor at home by home health, and reports that he had fallen 2 days previously, and was too weak to get up. Workup in the emergency department included a CT scan which suggested cystitis, left ureteritis, and notes bilateral nephrostomy tubes present. Urinalysis is consistent with a urinary tract infection. Of note also, patient is routinely to be on apixaban 2.5 mg twice daily, however, pharmacy notes that he has called refills and since August 04, but has not picked them up. Complicated urinary tract infection/bilateral nephrostomy tubes present/left ureteritis- Patient with history of coag negative staph infection on 07/30/2023 that will require daptomycin IV Follow urine culture and sensitivity Daptomycin IV and ceftriaxone IV Acute kidney injury- Creatinine 1.93 Patient has had more significant increases in creatinine above 11 recently, however, a return to his baseline was not tested for Baseline on 10/25/2024 was 1.28 Patient's status post 500 mL normal saline from the ED Placed on NSS at 80 mL/h x 1 additional liter Repeat CBC with differential, chemistry profile and magnesium levels in a.m. Continue oxybutynin CAD/PAD/PAF- Patient per pharmacy notes has been calling in refills for apixaban, but has not had it filled at least since August 04 Unsure if he has been taking his other medications as directed as well Will place him on apixaban 2.5 mg p.o. twice daily for treatment of above and for DVT prophylaxis Hold aspirin Plavix is listed as 75 mg p.o. twice daily, but will place him on 75 mg every morning Will change metoprolol succinate from 100 mg every morning to 50 mg p.o. every morning with hold parameters Admission and Anticipated Discharge Date Admission Date: November 23, 2024 Subjective "I feel 90% better today (11/24/2024) than yesterday (11/23/2024). The antibiotics are working, Doc." Review of Systems Constitutional: Negative for antecedent/coincident fevers, chills, diaphoresis, cough, wheeze, sore throat, hemoptysis, chest pains, palpitations, pleurisy, nausea, vomiting, diarrhea, abdominal pain, pelvic pain, hematemesis, hematochezia, melena, hematuria, dysuria, frequency, urgency, headaches, dizziness, lightheadedness, visual changes, hearing changes, weakness, falls, syncope, trauma, travel history, sick contacts, or food/drug ingestions novel or new. All other review of systems are reported as negative by the patient on 11/24/2024. Physical Exam Constitutional: General: Comfortable, coherent, and cooperative. Not confused, obtunded, or lethargic. Patient speaks with regular ramesh, and in complete, fluent, and articulate 7-9 word sentences without pause, interruption, cough, or wheeze with O2 sat 97% on room air (11/24/2024, 3:44pm). HEENT: Normocephalic, atraumatic. No nystagmus, gaze paresis, anisocoria, miosis, mydriasis, hyphema, scleral injection, conjunctivitis, or pterygium. No otorrhea or rhinorrhea. No pharyngeal erythema, edema, or discharge. Neck: Supple, no stridor, bruit, goiter, or hepato-jugular reflux. Jugular venous pressure is estimated to be 3 cm above the sternal angle of [place], which in turn, is 5 cm above the level of the right atrium; with jugular venous pressure estimated to be 8 cm, then, there is no jugular venous distention on 11/24/2024. Lymphatics: No cervical (anterior/posterior), supraclavicular, infraclavicular, axillary, epitrochlear, or inguinal adenopathy. Chest: Symmetric rise and fall with respirations. Non-tender to palpation. Lungs: Clear to auscultation and percussion. Heart: Regular rate and rhythm. S1 and S2 noted. No S3 or S4 summation gallop. No tripartite friction rub. Grade II/ early systolic murmur @ LLSB without radiation to the carotids, axilla, or back, and which remains invariant in regards to the respiratory cycle. Abdomen: Soft, non-tender, non-distended. No rebound, guarding, Barker's sign, or organomegaly. Bowel sounds auscultated in all 4 quadrants. Extremities: No clubbing, cyanosis, or edema. Skin: No decubitus ulcer or enanthem or exanthem. Neuro: Awake and oriented in regards to person, place, time, and situation. DTR+. 5/5 motor strength in all 4 extremities, both proximally and distally. No myoclonus or tics or tremors. Genito-urinary: No urethral discharge. No khan catheter. Texan condom catheter in situ. Bilateral nephrostomies in situ. Results & Data Results & Data Vital Signs (Past 12 Hours) Vital Signs Temp Pulse Pulse Resp BP BP Pulse Ox 11/24/24 15:44 36.7 C 66 17 142/74 H 97 11/24/24 12:04 36.8 C 67 18 150/65 H 98 11/24/24 10:16 60 11/24/24 07:42 37.1 C 61 18 178/81 H 96 O2 Del Method 11/24/24 15:44 Room Air 11/24/24 12:04 Room Air 11/24/24 10:16 11/24/24 07:42 Room Air Laboratory Results WBC 8.46, N73 L19 M7 B1, Hb 11.3, MCV 86.9, MCHC 32.8, platelet 157 (11/23/2024, 3:00pm). WBC 7.23, N69 L23 M7 E2, Hb 10.4, MCV 87.9, MCHC 31.7, platelet 139 (11/24/2024, 6:12am). Na 140, K 3.8, BUN 22, creatinine 1.93, GFR 35.21, glucose 82, Ca 8.4, albumin 3.3 (11/23/2024, 3:00pm). Na 141, K 3.6, BUN 22, creatinine 1.57, GFR 45.11, glucose 78, Ca 7.9, albumin 2.8 (11/24/2024, 6:12am). Lactate 1.1 mmol/L (11/23/2024, 8:02pm). Lactate (11/24/2024, 5:30pm). Procalcitonin #1 0.23 ng/mL (11/23/2024, 3:00pm). Procalcitonin #2 0.18 ng/mL (11/24/2024, 9:47am). Procalcitonin 0.56 ng/mL (10/25/2024, 2:51pm). U/A (11/23/2024, 5:54pm): turbid yellow, nitrite+, LE 3+, WBC > 50, RBC 6-10, epithelial cells 0-2, bacteria 4+ Urine culture (11/23/2024, 5:54pm): > 100,000 cfu/mL Klebsiella pneumoniae Blood culture #1 (11/23/2024, 7:50pm): Blood culture #2 (11/23/2024, 8:02pm): Diagnostic Findings CT abd/pelvis without IV contrast (11/23/2024, 4:07pm): 1. No evidence of acute trauma to the abdomen or the pelvis. 2. Findings suggesting enteritis. 3. Large quantity of fluid in the large bowel may clinically correlate with diarrhea. 4. Etiology is nonspecific and may be infectious/inflammatory although ischemic etiology is a possibility as well given the extensive atherosclerosis. 5. Prostamegaly. 6. Bilateral percutaneous nephrostomy tubes. Hydronephrosis has resolved. 7. Wall thickening the urinary bladder that is somewhat eccentric. This could be due to cystitis however if there is concern for malignancy, cystoscopy may be considered. 8. Inflammatory changes are also seen along the left ureter that is mildly distended. Ureteritis could be also present. CT cervical spine without IV contrast (11/23/2024, 4:07pm): 1. No acute fracture or dislocation. CT brain without IV contrast (11/23/2024, 4:07pm): 1. No acute bleed, mass, or midline shift. Pelvic x-ray (11/23/2024, 3:10pm): 1. No acute fracture. Portable CXR (11/23/2024, 3:10pm): 1. No infiltrate, effusion, cardiomegaly, pulmonary vascular congestion, or pneumothorax (by my review). EKG (11/23/2024, 3:00pm): NSR @ 74, FL 138, QTC 432, multiple PVC, no acute ST depressions/elevations, TWI (by my review). PG Care Time/CCT Total # of Minutes Spent Total Time Spent with Patient: Total time spent is greater than 50% in coordination of care (as documented) at patient's floor/unit and/or counseling patient: Coding Level of Care Code 18919 SUB INP/OBS CARE 2/35MIN Diagnoses Complicated urinary tract infection N39.0 KENDRICK (acute kidney injury) N17.9 Bladder cancer C67.9 Nephrostomy present Z93.6 PAF (paroxysmal atrial fibrillation) I48.0 Diabetes mellitus, type 2 E11.9 Diabetes mellitus complication status: without complication Diabetes mellitus fci insulin use: without emd teacher use Coronary artery disease involving [place] coronary artery of [place] heart without angina pectoris I25.10 Coronary Disease-Associated Artery/Lesion type: [place] artery [place] vs. transplanted heart: [place] heart Associated angina: without angina Ambulatory dysfunction R26.2 (6) Diabetes mellitus, type 2 Diabetes mellitus complication status: without complication Diabetes mellitus fci insulin use: without emd teacher use Qualified Code(s): E11.9 - Type 2 diabetes mellitus without complications (7) CAD (coronary artery disease) Coronary Disease-Associated Artery/Lesion type: [place] artery [place] vs. transplanted heart: [place] heart Associated angina: without angina Qualified Code(s): I25.10 - Atherosclerotic heart disease of [place] coronary artery without angina pectoris
[2024-11-24] MEDS: DAPTOmycin 500 MG in SYRINGE 0 ML IV SCH (20:36)
[2024-11-25] MEDS: ERTAPENEM 1000MG 1,000 MG/10 ML SYR IV SCH (09:48)
[2024-11-25 14:28] LABS: Hematocrit (blood only) 31.8 % (42.0-52.0); Hemoglobin 10.7 g/dl (14.0-18.0); Immature Granulocytes # (auto) 0.01 K/uL (0.01-0.20); Immature Granulocytes % (auto) 0.2 %; Mean Corpuscular Hemoglobin 28.7 pg (25.0-34.0); Mean Corpuscular Volume 85.3 fL (80.0-100.0); Platelet Count 168 K/uL (130-400); RDW Standard Deviation 51.7 fL (36.4-46.3); Red Blood Count 3.73 M/uL (4.70-6.10); White Blood Count 5.39 K/ul (4.8-10.8)
[2024-11-25 14:43] LABS: Anion Gap 6.0 (3-11); Blood Urea Nitrogen 21.0 mg/dl (6-23); Calcium 8.3 mg/dl (8.6-10.3); Carbon Dioxide 23.0 mmol/L (21-32); Chloride 107.0 mmol/L (98-107); Creatinine Clr Calc Pharmacy 39.9 ml/min; Glucose 121.0 mg/dl (70-99(Fasting)); Potassium 4.1 mmol/L (3.5-5.1); Sodium 136.0 mmol/L (136-145)
--- NOTE | 2024-11-25 19:26 | Hospitalist Progress Note ---
Date of Service November 25, 2024 Assessment & Plan (1) Complicated urinary tract infection: Plan: Patient remains afebrile with a non-toxic genito-urinary exam. WBC remains normal: WBC 8.46, N73 L19 M7 B1 (11/23/2024, 3:00pm). WBC 7.23, N69 L23 M7 E2 (11/24/2024, 6:12am). Patient has no complaints of dysuria, hematuria, frequency, urgency, flank pain, N/V/D, abdominal pain, pelvic pain on 11/24/2024 - 11/25/2024. cf., urine culture (10/25/2024, 5:00pm): Tati glabrata cf., urine culture (07/30/2023, 8:06am): coagulase negative Staphylococcus cf., urine culture (06/10/2023, 2:33pm): Tati glabrata complex cf., urine culture (05/20/2023, 10:03am): Corynebacteria species, not urealyticum cf., urine culture (03/29/2023, 9:16am): Yeast, not Tati albicans/dubliniensis cf., urine culture (02/27/2023, 6:07pm): Klebsiella pneumoniae #1, Klebsiella pneumoniae #2 cf., urine culture (02/27/2025, 5:11pm): Klebsiella pneumoniae cf., urine culture (02/27/2025, 5:11pm): Klebsiella pneumoniae cf., urine culture (02/27/2025, 5:00pm): Klebsiella pneumoniae #1, Klebsiella pneumoniae #2 cf., urine culture (12/13/2022, 3:01pm): Yeast, not Tati a lbicans/dubliniensis cf., urine culture (11/29/2022, ? time ): Yeast, not Tati albicans/dubliniensis cf., urine culture (11/29/2022, ? time ): Citrobacter freundii; yeast, not Tati albicans/dubliniensis cf., urine culture (11/26/2022, 3:02am): yeast, not Tati albicans/dubliniensis cf., urine culture (10/30/2022, 6:40am): Tati glabrata complex cf., urine culture (09/14/2022, 10:06am): yeast, not Tati albicans/dublinien sis s/p daptomycin 700mg IV x 1 dose (11/23/2024, 8:17pm), ceftriaxone 2g IV x 1 dose (11/23/2024, 8:17pm) in [facility] ER. s/p daptomycin 700mg IV daily (day #2/7 on 11/24/2024, 8:00pm); ceftriaxone 2g IV daily (day #2/7 on 11/24/2024, 8:57am; day #3/7 on 11/25/2024, 7:49am) in [facility] Med-Surg bed #N286-1. Patient was subsequently transitioned to ertapenem 1g IV daily (day #1/ on 11/25/2024, 9:48am) to treat urine culture (11/23/2024, 5:54pm): > 100,000 cfu/mL ESBL Klebsiella pneumoniae. D/C'd patient's home-scheduled oxybutynin 5mg PO daily (last administered on 11/24/2024, 12:06am) as this anti-cholinergic medication promotes urinary retention, thereby increasing the risk for this patient to develop an acute, complicated UTI. Check vitals, genito-urinary exam, procalcitonin, urine culture (11/23/2024, 5:54pm), blood culture #1 (11/24/2024, 7:50pm), and blood culture #2 (11/23/2024, 8:02pm) in the 11/26/2024 am, followed by D/C home on 11/26/2024 am AFTER patient receives ertapenem 1g IV daily (day #2/7 on 11/26/2024, 9:45am). Patient will continue to receive ertapenem 1g IV daily for the next 5 days ( through 11/30/2024) at his home via home health nurse and via brand-new U/S guided peripheral IV inserted by Ms. Grazyna Macario RN! (2) KENDRICK (acute kidney injury): Plan: cf., BUN 22, creatinine 1.93, GFR 35.21 (11/23/2024, 3:00pm). cf., BUN 22, creatinine 1.57, GFR 45.11 (11/24/2024, 6:12am). cf., BUN 21, creatinine 1.40, GFR 51.77 (11/25/2024, 2:01pm). cf., CKD stage III with baseline creatinine range, 1.22 - 1.30 (03/24/2023 - 09/14/2024). Etiology of acute kidney injury is most likely due to acute ESBL Klebsiella pneumoniae UTI (as noted on 11/23/2024, 5:54pm urine culture). RESOLVING well s/p: 1. 0.5 liter of 0.9% NS @ 999 mL/hr (11/23/2024, 3:19pm). 2. 1.0 liter of 0.9% NS @ 80 mL/hr (11/23/2024, 8:34pm). Patient does not require any further IV fluid rehydration therapy; instead, patient has been encouraged to increase his oral intake of a heart healthy diet PO ad libitum to continue the rehydration process orally. 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 Ladan Garcia). s/p problems with coordinating administration of BCG 50mg instillation @ [facility] ([address] [place] [address]) in the past; s/p BCG 50mg instillations (05/02/2023 (first dose of 6 doses); 06/10/2023). s/p TURBT and fulguration of bladder lesion; s/p TURP (02/17/2024, 8:35am), [facility] Urologist Dr. Faheem Krishnamurthy). s/p TURBT and fulguration of prostatic varicosity (09/14/2024, 10:15am, [facility] Urologist Dr. Faheem Krishnamurthy). (4) Nephrostomy present: Plan: Bilateral nephrostomies in situ with expression of copious volumes of urine on 11/24/2024. Hydronephrosis has RESOLVED (as reported on 11/23/2024, 4:07pm CT abd/pelvis wit hout IV contrast). (5) PAF (paroxysmal atrial fibrillation): Plan: cf., admission EKG (11/23/2024, 3:00pm): NSR @ 74, LA 138, QTC 432, multiple PVC, no acute ST depressions/elevations, TWI (by my review). Continue rate-control utilizing home-scheduled metoprolol succinate 50mg PO qam (6) Diabetes mellitus, type 2: Plan: Long-term glycemic control remains unknown despite HbA1c 5.5% (09/01/2024, 11:24am), which might suggest, at first glance, that patient's long-term glycemic control is excellent. The reason that long-term glycemic control remains unknown is that this patient is also anemic at the same time that he is diabetic. In anemic states, increased RBC turnover leads to concomitant reductions in both Hb and HbA1c levels. Hence, attention turns towards serum glucose levels: cf., glucose 82 mg/dL (11/23/2024, 3:00pm). cf., glucose 78 mg/dL (11/24/2024, 6:12am). cf., glucose 121 mg/dL (11/25/2024, 2:01pm). (7) CAD (coronary artery disease): Plan: Hold off secondary prophylaxis against CAD utilizing home-scheduled atorvastatin 80mg PO qam given patient's complaints of fall at home alone and remaining on floor at home alone for 2 days with patient subsequently reporting myalgias. Fortunately, patient has not developed acute rhabdomyolysis: cf., normal CK 163 U/L (11/23/2024, 3:00pm). However, patient's normal CK 163 U/L (11/23/2024, 3:00pm) is higher than patient's baseline CK range of 95 U/L (08/30/2021, 7:12am) to 52 U/L (11/26/2022, 12:09am). (8) Ambulatory dysfunction: Plan: Await PT/OT/Case Mgm't Service evaluations in the 11/26/2024 am, to determine if patient can be discharged back to his home safely, or if patient is better served with discharge to SNF for short-term rehab. Of note, patient insists that he is not going to any SNF for short-term rehab, irrespective of what PT/OT Service evaluations may recommend. Patient reports that he is being discharged back to his home. Plan The patient is a 79-year-old male with past medical history including paroxysmal atrial fibrillation, PAD, bilateral nephrostomy tubes, venous insufficiency, urinary incontinence, diabetes mellitus type 2, bladder cancer, CAD, dyslipidemia and hypertension. He was found on the floor at home by home health, and reports that he had fallen 2 days previously, and was too weak to get up. Workup in the emergency department included a CT scan which suggested cystitis, left ureteritis, and notes bilateral nephrostomy tubes present. Urinalysis is consistent with a urinary tract infection. Of note also, patient is routinely to be on apixaban 2.5 mg twice daily, however, pharmacy notes that he has called refills and since August 04, but has not picked them up. Complicated urinary tract infection/bilateral nephrostomy tubes present/left ureteritis- Patient with history of coag negative staph infection on 07/30/2023 that will r equire daptomycin IV Follow urine culture and sensitivity Daptomycin IV and ceftriaxone IV Acute kidney injury- Creatinine 1.93 Patient has had more significant increases in creatinine above 11 recently, however, a return to his baseline was not tested for Baseline on 10/25/2024 was 1.28 Patient's status post 500 mL normal saline from the ED Placed on NSS at 80 mL/h x 1 additional liter Repeat CBC with differential, chemistry profile and magnesium levels in a.m. Continue oxybutynin CAD/PAD/PAF- Patient per pharmacy notes has been calling in refills for apixaban, but has not had it filled at least since August 04 Unsure if he has been taking his other medications as directed as well Will place him on apixaban 2.5 mg p.o. twice daily for treatment of above and for DVT prophylaxis Hold aspirin Plavix is listed as 75 mg p.o. twice daily, but will place him on 75 mg every morning Will change metoprolol succinate from 100 mg every morning to 50 mg p.o. every morning with hold parameters Admission and Anticipated Discharge Date Admission Date: November 23, 2024 Subjective "I feel 100% better today (11/25/2024) than yesterday (11/24/2024). The antibiotics are working great. I want to go home. I am not going to some [facility], Doc." Review of Systems Review of Systems: The patient denies chest pain, palpitations, shortness of breath, dyspnea on exertion, cough, lower extremity swelling, sore throat, fevers, chills, sweats, nausea, vomiting, diarrhea , constipation, abdominal pain, pelvic pain, blood in urine or stool, dysuria, urinary frequency or urgency, lightheadedness, dizziness, headache, rash, abnormal bruising or bleeding, focal weakness, numbness or tingling in arms or legs, generalized arthralgias or myalgias, back or neck pain, or night sweats. The review of systems is otherwise negative other than for that already noted above, and at least 10 systems have been reviewed. Constitutional: Negative for antecedent/coincident fevers, chills, diaphoresis, cough, wheeze, sore throat, hemoptysis, chest pains, palpitations, pleurisy, nausea, vomiting, diarrhea, abdominal pain, pelvic pain, hematemesis, hematochezia, melena, hematuria, dysuria, frequency, urgency, headaches, dizziness, lightheadedness, visual changes, hearing changes, weakness, falls, syncope, trauma, travel history, sick contacts, or food/drug ingestions novel or new. All other review of systems are reported as negative by the patient on 11/25/2024. Physical Exam Constitutional: General: Comfortable, coherent, and cooperative. Not confused, obtunded, or lethargic. Patient speaks with regular ramesh, and in complete, fluent, and articulate 7-9 word sentences without pause, interruption, cough, or wheeze with O2 sat 100% on room air (11/25/2024, 5:22pm). HEENT: Normocephalic, atraumatic. No nystagmus, gaze paresis, anisocoria, miosis, mydriasis, hyphema, scleral injection, conjunctivitis, or pterygium. No otorrhea or rhinorrhea. No pharyngeal erythema, edema, or discharge. Neck: Supple, no stridor, bruit, goiter, or hepato-jugular reflux. Jugular venous pressure is estimated to be 3 cm above the sternal angle of [place], which in turn, is 5 cm above the level of the right atrium; with jugular venous pressure estimated to be 8 cm, then, there is no jugular venous distention on 11/25/2024. Lymphatics: No cervical (anterior/posterior), supraclavicular, infraclavicular, axillary, epitrochlear, or inguinal adenopathy. Chest: Symmetric rise and fall with respirations. Non-tender to palpation. Lungs: Clear to auscultation and percussion. Heart: Regular rate and rhythm. S1 and S2 noted. No S3 or S4 summation gallop. No tripartite friction rub. Grade II/ early systolic murmur @ LLSB without radiation to the carotids, axilla, or back, and which remains invariant in regards to the respiratory cycle. Abdomen: Soft, non-tender, non-distended. No rebound, guarding, Barker's sign, or organomegaly. Bowel sounds auscultated in all 4 quadrants. Extremities: No clubbing, cyanosis, or edema. Skin: No decubitus ulcer or enanthem or exanthem. Neuro: Awake and oriented in regards to person, place, time, and situation. DTR+. 5/5 motor strength in all 4 extremities, both proximally and distally. No myoclonus or tics or tremors. Genito-urinary: No urethral discharge. No khan catheter. [place] condom catheter in situ. Bilateral nephrostomies in situ. Results & Data Results & Data Vital Signs (Past 12 Hours) Vital Signs Temp Pulse Pulse Resp BP BP Pulse Ox 11/25/24 17:22 153/69 H 11/25/24 16:02 36.7 C 57 L 18 193/83 H 100 11/25/24 13:08 61 11/25/24 11:21 36.9 C 70 17 165/77 H 98 11/25/24 08:18 36.9 C 61 18 180/73 H 99 O2 Del Method 11/25/24 17:22 11/25/24 16:02 Room Air 11/25/24 13:08 11/25/24 11:21 Room Air 11/25/24 08:18 Room Air Laboratory Results WBC 8.46, N73 L19 M7 B1, Hb 11.3, MCV 86.9, MCHC 32.8, platelet 157 (11/23/2024, 3:00pm). WBC 7.23, N69 L23 M7 E2, Hb 10.4, MCV 87.9, MCHC 31.7, platelet 139 (11/24/2024, 6:12am). WBC 5.39, N66 L26 M6 E1, Hb 10.7, MCV 85.3, MCHC 33.6, platelet 168 (11/25/2024, 2:01pm). Na 140, K 3.8, BUN 22, creatinine 1.93, GFR 35.21, glucose 82, Ca 8.4, albumin 3.3 (11/23/2024, 3:00pm). Na 141, K 3.6, BUN 22, creatinine 1.57, GFR 45.11, glucose 78, Ca 7.9, albumin 2.8 (11/24/2024, 6:12am). Na 136, K 4.1, BUN 21, creatinine 1.40, GFR 51.77, glucose 121, Ca 8.3 (11/25/2024, 2:01pm). Lactate 1.1 mmol/L (11/23/2024, 8:02pm). Lactate 0.8 mmol/L (11/24/2024, 5:41pm). Lactate 1.4 mmol/L (11/25/2024, 2:01pm). Procalcitonin #1 0.23 ng/mL (11/23/2024, 3:00pm). Procalcitonin #2 0.18 ng/mL (11/24/2024, 9:47am). Procalcitonin #3 0.13 ng/mL (11/25/2024, 2:01pm). Procalcitonin 0.56 ng/mL (10/25/2024, 2:51pm). U/A (11/23/2024, 5:54pm): turbid yellow, nitrite+, LE 3+, WBC > 50, RBC 6-10, epithelial cells 0-2, bacteria 4+ Urine culture (11/23/2024, 5:54pm): > 100,000 cfu/mL ESBL Klebsiella pneumoniae Blood culture #1 (11/23/2024, 7:50pm): Blood culture #2 (11/23/2024, 8:02pm): Diagnostic Findings CT abd/pelvis without IV contrast (11/23/2024, 4:07pm): 1. No evidence of acute trauma to the abdomen or the pelvis. 2. Findings suggesting enteritis. 3. Large quantity of fluid in the large bowel may clinically correlate with diarrhea. 4. Etiology is nonspecific and may be infectious/inflammatory although ischemic etiology is a possibility as well given the extensive atherosclerosis. 5. Prostamegaly. 6. Bilateral percutaneous nephrostomy tubes. Hydronephrosis has resolved. 7. Wall thickening the urinary bladder that is somewhat eccentric. This could be due to cystitis however if there is concern for malignancy, cystoscopy may be considered. 8. Inflammatory changes are also seen along the left ureter that is mildly distended. Ureteritis could be also present. CT cervical spine without IV contrast (11/23/2024, 4:07pm): 1. No acute fracture or dislocation. CT brain without IV contrast (11/23/2024, 4:07pm): 1. No acute bleed, mass, or midline shift. Pelvic x-ray (11/23/2024, 3:10pm): 1. No acute fracture. Portable CXR (11/23/2024, 3:10pm): 1. No infiltrate, effusion, cardiomegaly, pulmonary vascular congestion, or pneumothorax (by my review). EKG (11/23/2024, 3:00pm): NSR @ 74, LA 138, QTC 432, multiple PVC, no acute ST depressions/elevations, TWI (by my review). PG Care Time/CCT Total # of Minutes Spent Total Time Spent with Patient: Total time spent is greater than 50% in coordination of care (as documented) at patient's floor/unit and/or counseling patient: Coding Level of Care Code 73848 SUB INP/OBS CARE 2/35MIN Diagnoses Complicated urinary tract infection N39.0 KENDRICK (acute kidney injury) N17.9 Bladder cancer C67.9 Nephrostomy present Z93.6 PAF (paroxysmal atrial fibrillation) I48.0 Diabetes mellitus, type 2 E11.9 Diabetes mellitus complication status: without complication Diabetes mellitus assisted insulin use: without assisted use Coronary artery disease involving [place] coronary artery of [place] heart without angina pectoris I25.10 Coronary Disease-Associated Artery/Lesion type: [place] artery [place] vs. transplanted heart: [place] heart Associated angina: without angina Ambulatory dysfunction R26.2 (6) Diabetes mellitus, type 2 Diabetes mellitus complication status: without complication Diabetes mellitus intermodal dispatcher insulin use: without intermodal dispatcher use Qualified Code(s): E11.9 - Type 2 diabetes mellitus without complications (7) CAD (coronary artery disease) Coronary Disease-Associated Artery/Lesion type: [place] artery [place] vs. transplanted heart: [place] heart Associated angina: without angina Qualified Code(s): I25.10 - Atherosclerotic heart disease of [place] coronary artery without angina pectoris
[2024-11-25 23:30] VITALS: RESP 18; O2SAT 98
[2024-11-26 07:49] VITALS: TEMP 97.7
--- NOTE | 2024-11-26 09:04 | Discharge Summary ---
Discharge Summary Date of Service November 26, 2024 Principal Dx & Hospital Course #1 = Principal Diagnosis (1) Complicated urinary tract infection: Patient remains afebrile with a non-toxic genito-urinary exam. WBC remains normal: WBC 8.46, N73 L19 M7 B1 (11/23/2024, 3:00pm). WBC 7.23, N69 L23 M7 E2 (11/24/2024, 6:12am). Patient has no complaints of dysuria, hematuria, frequency, urgency, flank pain, N/V/D, abdominal pain, pelvic pain on 11/24/2024 - 11/25/2024. cf., urine culture (10/25/2024, 5:00pm): Tati glabrata cf., urine culture (07/30/2023, 8:06am): coagulase negative Staphylococcus cf., urine culture (06/10/2023, 2:33pm): Tati glabrata complex cf., urine culture (05/20/2023, 10:03am): Corynebacteria species, not urealyticum cf., urine culture (03/29/2023, 9:16am): Yeast, not Tati albicans/dubliniensis cf., urine culture (02/27/2023, 6:07pm): Klebsiella pneumoniae #1, Klebsiella pneumoniae #2 cf., urine culture (02/27/2025, 5:11pm): Klebsiella pneumoniae cf., urine culture (02/27/2025, 5:11pm): Klebsiella pneumoniae cf., urine culture (02/27/2025, 5:00pm): Klebsiella pneumoniae #1, Klebsiella pneumoniae #2 cf., urine culture (12/13/2022, 3:01pm): Yeast, not Tati albicans/dubliniensis cf., urine culture (11/29/2022, ? time ): Yeast, not Tati albicans/dubliniensis cf., urine culture (11/29/2022, ? time ): Citrobacter freundii; yeast, not Tati albicans/dubliniensis cf., urine culture (11/26/2022, 3:02am): yeast, not Tati albicans/dubliniensis cf., urine culture (10/30/2022, 6:40am): Tati glabrata complex cf., urine culture (09/14/2022, 10:06am): yeast, not Tati albicans/dubliniensis s/p daptomycin 700mg IV x 1 dose (11/23/2024, 8:17pm), ceftriaxone 2g IV x 1 dose (11/23/2024, 8:17pm) in [facility] ER. s/p daptomycin 700mg IV daily (day #2/7 on 11/24/2024, 8:00pm); ceftriaxone 2g IV daily (day #2/7 on 11/24/2024, 8:57am; day #3/7 on 11/25/2024, 7:49am) in [facility] Med-Surg bed #N286-1. Patient was subsequently transitioned to ertapenem 1g IV daily (day #1/7 on 11/25/2024, 9:48am) to treat urine culture (11/23/2024, 5:54pm): > 100,000 cfu/mL ESBL Klebsiella pneumoniae. D/C'd patient's home-scheduled oxybutynin 5mg PO daily (last administered on 11/24/2024, 12:06am) as this anti-cholinergic medication promotes urinary retention, thereby increasing the risk for this patient to develop an acute, complicated UTI. Patient refused to remain in [facility] to receive his second dose of ertapenem 1g IV daily (e.g., day #2/7 on 11/26/2024, 9:45am) as patient reported to me on 11/25/2024 and again on 11/25/2024: "I have got to be at the bank tomorrow (11/26/2024) at 1:00pm. I cannot be late." Patient was subsequently discharged back to his home on 11/26/2024, 9:00am, as requested by the patient. Patient will continue to receive ertapenem 1g IV daily for the next 6 days (11/26/2024 through 12/01/2024) at his home via home health nurse and via brand-new U/S guided peripheral IV inserted by Ms. Grazyna Macario RN! (2) KENDRICK (acute kidney injury): cf., BUN 22, creatinine 1.93, GFR 35.21 (11/23/2024, 3:00pm). cf., BUN 22, creatinine 1.57, GFR 45.11 (11/24/2024, 6:12am). cf., BUN 21, creatinine 1.40, GFR 51.77 (11/25/2024, 2:01pm). cf., CKD stage III with baseline creatinine range, 1.22 - 1.30 (03/24/2023 - 09/14/2024). Etiology of acute kidney injury is most likely due to acute ESBL Klebsiella pne umoniae UTI (as noted on 11/23/2024, 5:54pm urine culture). RESOLVING well s/p: 1. 0.5 liter of 0.9% NS @ 999 mL/hr (11/23/2024, 3:19pm). 2. 1.0 liter of 0.9% NS @ 80 mL/hr (11/23/2024, 8:34pm). Patient does not require any further IV fluid rehydration therapy; instead, patient has been encouraged to increase his oral intake of a heart healthy diet PO ad libitum to continue the rehydration process orally. 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 Ladan Garcia). s/p problems with coordinating administration of BCG 50mg instillation @ [facility] ([address] [place] [id number]) in the past; s/p BCG 50mg instillations (05/02/2023 (first dose of 6 doses); 06/10/2023). s/p TURBT and fulguration of bladder lesion; s/p TURP (02/17/2024, 8:35am), [facility] Urologist Dr. Faheem Krishnamurthy). s/p TURBT and fulguration of prostatic varicosity (09/14/2024, 10:15am, [facility] Urologist Dr. Faheem Krishnamurthy). (4) Nephrostomy present: Bilateral nephrostomies in situ with expression of copious volumes of urine on 11/24/2024. Hydronephrosis has RESOLVED (as reported on 11/23/2024, 4:07pm CT abd/pelvis without IV contrast). (5) PAF (paroxysmal atrial fibrillation): cf., admission EKG (11/23/2024, 3:00pm): NSR @ 74, WI 138, QTC 432, multiple PVC, no acute ST depressions/elevations, TWI (by my review). Continue rate-control utilizing home-scheduled metoprolol succinate 50mg PO qam (6) Diabetes mellitus, type 2: Long-term glycemic control remains unknown despite HbA1c 5.5% (09/01/2024, 11:24am), which might suggest, at first glance, that patient's long-term glycemic control is excellent. The reason that long-term glycemic control remains unknown is that this patient is also anemic at the same time that he is diabetic. In anemic states, increased RBC turnover leads to concomitant reductions in both Hb and HbA1c levels. Hence, attention turns towards serum glucose levels: cf., glucose 82 mg/dL (11/23/2024, 3:00pm). cf., glucose 78 mg/dL (11/24/2024, 6:12am). cf., glucose 121 mg/dL (11/25/2024, 2:01pm). (7) CAD (coronary artery disease): Hold off secondary prophylaxis against CAD utilizing home-scheduled atorvastatin 80mg PO qam given patient's complaints of fall at home alone and remaining on floor at home alone for 2 days with patient subsequently reporting myalgias. Fortunately, patient has not developed acute rhabdomyolysis: cf., normal CK 163 U/L (11/23/2024, 3:00pm). However, patient's normal CK 163 U/L (11/23/2024, 3:00pm) is higher than patient's baseline CK range of 95 U/L (08/30/2021, 7:12am) to 52 U/L (11/26/2022, 12:09am). (8) Ambulatory dysfunction: Patient underwent PT/OT/Case Mgm't Service evaluations in the 11/25/2024 am, to determine if patient could be discharged back to his home safely, or if patient was better served with discharge to SNF for short-term rehab. Subsequently, PT/OT/Case Mgm't Services concurred that patient is best served with discharge to SNF for short-term rehab as well as to continue ertapenem 1g IV daily (11/26/2024 - 12/01/2024) at SNF. However, patient insists that he is not going to any SNF for short-term rehab, irrespective of what PT/OT Service evaluations may recommend. Patient reports that he is being discharged back to his home. Patient was subsequently discharged back to his home with home health services on 11/26/2024, where patient will continue to receive ertapenem 1g IV daily for the next 6 days (11/26/2024 through 12/01/2024) at his home via home health nurse and via brand-new U/S guided peripheral IV inserted by Ms. Grazyna Macario, TERESA! Plan The patient is a 79-year-old male with past medical history including paroxysmal atrial fibrillation, PAD, bilateral nephrostomy tubes, venous insufficiency, urinary incontinence, diabetes mellitus type 2, bladder cancer, CAD, dyslipidemia and hypertension. He was found on the floor at home by home health, and reports that he had fallen 2 days previously, and was too weak to get up. Workup in the emergency department included a CT scan which suggested cystitis, left ureteritis, and notes bilateral nephrostomy tubes present. Urinalysis is consistent with a urinary tract infection. Of note also, patient is routinely to be on apixaban 2.5 mg twice daily, however, pharmacy notes that he has called refills and since August 04, but has not picked them up. Complicated urinary tract infection/bilateral nephrostomy tubes present/left ureteritis- Patient with history of coag negative staph infection on 07/30/2023 that will require daptomycin IV Follow urine culture and sensitivity Daptomycin IV and ceftriaxone IV Acute kidney injury- Creatinine 1.93 Patient has had more significant increases in creatinine above 11 recently, however, a return to his baseline was not tested for Baseline on 10/25/2024 was 1.28 Patient's status post 500 mL normal saline from the ED Placed on NSS at 80 mL/h x 1 additional liter Repeat CBC with differential, chemistry profile and magnesium levels in a.m. Continue oxybutynin CAD/PAD/PAF- Patient per pharmacy notes has been calling in refills for apixaban, but has not had it filled at least since August 04 Unsure if he has been taking his other medications as directed as well Will place him on apixaban 2.5 mg p.o. twice daily for treatment of above and for DVT prophylaxis Hold aspirin Plavix is listed as 75 mg p.o. twice daily, but will place him on 75 mg every morning Will change metoprolol succinate from 100 mg every morning to 50 mg p.o. every morning with hold parameters Admission HPI Per Admitting Provider The patient is a 79-year-old male with past medical history including paroxysmal atrial fibrillation, PAD, bilateral nephrostomy tubes, venous insufficiency, urinary incontinence, diabetes mellitus type 2, bladder cancer, CAD, dyslipidemia and hypertension. He was found on the floor at home by home health, and reports that he had fallen 2 days previously, and was too weak to get up. Workup in the emergency department included a CT scan which suggested cystitis, left ureteritis, and notes bilateral nephrostomy tubes present. Urinalysis is consistent with a urinary tract infection. Of note also, patient is routinely to be on apixaban 2.5 mg twice daily, however, pharmacy notes that he has called refills and since August 04, but has not picked them up Discharge Exam Constitutional General: Comfortable, coherent, and cooperative. Not confused, obtunded, or lethargic. Patient speaks with regular ramesh, and in complete, fluent, and articulate 7-9 word sentences without pause, interruption, cough, or wheeze with O2 sat 100% on room air (11/25/2024, 5:22pm) and discharge O2 sat 98% on room air (11/26/2024, 7:48am). HEENT: Normocephalic, atraumatic. No nystagmus, gaze paresis, anisocoria, miosis, mydriasis, hyphema, scleral injection, conjunctivitis, or pterygium. No otorrhea or rhinorrhea. No pharyngeal erythema, edema, or discharge. Neck: Supple, no stridor, bruit, goiter, or hepato-jugular reflux. Jugular venous pressure is estimated to be 3 cm above the sternal angle of Jeramie, which in turn, is 5 cm above the level of the right atrium; with jugular venous pressure estimated to be 8 cm, then, there is no jugular venous distention on 11/26/2024. Lymphatics: No cervical (anterior/posterior), supraclavicular, infraclavicular, axillary, epitrochlear, or inguinal adenopathy. Chest: Symmetric rise and fall with respirations. Non-tender to palpation. Lungs: Clear to auscultation and percussion. Heart: Regular rate and rhythm. S1 and S2 noted. No S3 or S4 summation gallop. No tripartite friction rub. Grade II/ early systolic murmur @ LLSB without radiation to the carotids, axilla, or back, and which re sheila invariant in regards to the respiratory cycle. Abdomen: Soft, non-tender, non-distended. No rebound, guarding, Barker's sign, or organomegaly. Bowel sounds auscultated in all 4 quadrants. Extremities: No clubbing, cyanosis, or edema. Skin: No decubitus ulcer or enanthem or exanthem. Neuro: Awake and oriented in regards to person, place, time, and s ituation. DTR+. 5/5 motor strength in all 4 extremities, both proximally and distally. No myoclonus or tics or tremors. Genito-urinary: No urethral discharge. No khan catheter. Texan condom cath eter in situ. Bilateral nephrostomies in situ. Discharge Plan Discharge Items Patient Disposition: Home - Home Health Services Reason For Visit: COMPLICATED UTI, NEPHROSTOMY TUBES, S/P FALL Discharge Diagnosis: 1. Acute ESBL Klebsiella pneumoniae UTI (as noted on 11/23/2024, 5:54pm urine culture). 2. Acute kidney injury with admission creatinine 1.93 mg/dL, GFR 35.21 mL/min (11/23/2024, 3:00pm). Condition on Discharge: Fair Activity: Resume your previous activity Lifting: Gradually increase as tolerated Bathing: No limitations Exercise/Sports: Gradually increase as tolerated Weightbearing: Full weightbearing Non-emergency contact: Primary Care Provider Call non-emergency contact if: you have any medication questions Follow-up/Referrals: Delmi Nuno MD [Primary Care Provider] - Diet: Carb Consistent or DM2 and Heart Healthy Addtl Attending Provider Instructions: See your PCP Dr. Delmi Nuno within 5-7 days of hospital discharge for routine, follow-up visit and to discuss final results of blood culture #1 (11/23/2024, 7:50pm) and blood culture #2 (11/23/2024, 8:02pm). Pending Studies at Discharge: Yes Studies:: See your PCP Dr. Delmi Nuno within 5-7 days of hospital discharge for routine, follow-up visit and to discuss final results of blood culture #1 (11/23/2024, 7:50pm) and blood culture #2 (11/23/2024, 8:02pm). Stand-Alone Forms: My [facility], Smoking Cessation Medications and DC Order Prescriptions: New ertapenem 1 gram recon soln 1 g IV DAILY 6 Days Rx Instructions: Take ertapenem 1g IV daily for 6 days, starting today, 11/26/2024 am, and ending after 12/01/2024 am dose. Continued (DME) Bedside Commode Misc See Rx Instructions .Route Qty: 1 0RF Rx Instructions: As directed (DME) blood-glucose meter [OneTouch Verio Flex Start] Kit See Rx Instructions .Route Qty: 1 0RF Rx Instructions: Check blood sugar twice daily (DME) OneTouch Verio test strips Strip See Rx Instructions .Route Qty: 50 1RF Rx Instructions: Test daily As directed atorvastatin 80 mg tablet 80 mg PO QAM Qty: 90 3RF metoprolol succinate 100 mg tablet extended release 24 hr 100 mg PO DAILY aspirin 81 mg Tablet,Delayed Release (Dr/Ec) 81 mg PO DAILY acetaminophen 500 mg Tablet 500 mg PO Q6H PRN (Reason: Pain) clopidogrel 75 mg tablet 0 mg PO BID Patient Comments: Last filled 07/2024 x90 day supply. Pharmacy confirms that pt gets putting in refill request but not picking it up. Pt unsure if they take this medication or not. Originally written for 75mg by mouth twice daily. Eliquis 2.5 mg tablet 0 mg PO BID Patient Comments: Last filled 07/2024 x90 day supply. Pharmacy confirms that pt gets putting in refill request but not picking it up. Pt unsure if they take this medication or not. Originally written for 2.5mg by mouth twice daily. Discontinued oxybutynin chloride 5 mg tablet 5 mg PO TID Discharge Orders: Discharge Order (Routine); Ordered 11/26/24 Ordered By: Chad Valentino Admission Data Admit Date/Time: 11/23/24 19:37 Attending Provider: Chad Valentino Admit Provider: Johnson Mathews Primary Care Provider: Delmi Nuno Other Providers: Johnson Mathews; [place] Hospital Stay Data Consultations 11/23/24 18:40 ED Decision to Admit Stat Diagnostic Imagining Performed 11/23/24 16:07 CT abd pelvis wo con Stat CT cervical spine wo con Stat CT head/brain wo con Stat Pending Results Patient Have Any Pending Studies at Discharge: Yes Discharge Instructions Given to Patient (Per Discharging Provider) See your PCP Dr. Delmi Nuno within 5-7 days of hospital discharge for routine, follow-up visit and to discuss final results of blood culture #1 (11/23/2024, 7:50pm) and blood culture #2 (11/23/2024, 8:02pm). Total Time Total Time Spent Total Time Spent (In Minutes): 35 minutes. Of this time period, 19 minutes were spent in coordinating patient's discharge. Coding Level of Care Code 20927 INP/OBS DISCH >30 MIN Diagnoses Complicated urinary tract infection N39.0 KENDRICK (acute kidney injury) N17.9 Bladder cancer C67.9 Nephrostomy present Z93.6 PAF (paroxysmal atrial fibrillation) I48.0 Diabetes mellitus, type 2 E11.9 Diabetes mellitus complication status: without complication Diabetes mellitus prison insulin use: without prison use Coronary artery disease involving [place] coronary artery of [place] heart without angina pectoris I25.10 Coronary Disease-Associated Artery/Lesion type: [place] artery [place] vs. transplanted heart: [place] heart Associated angina: without angina Ambulatory dysfunction R26.2
[2024-11-26 10:42] VITALS: BP 192/86; PULSE 66
--- NOTE | 2024-11-27 13:22 | Coding Query ---
CODING QUERY To promote full compliance with coding requirements relating to patient care, provider participation is requested in all cases of supervisor dental laboratory uncertainty. Please assist us with the question(s) below: In the record, it states that the patient has an UTI. Please clarify below the cause of the UTI if applicable. Thank you. ( ) Other urinary cath/device was the cause of the UTI. ( ) UTI, unspecified cause. ( x ) Other (Specify): Acute UTI complicated by the presence of bilateral nephrostomy tubes in situ. Of note, there is NO khan catheter at all. Principal Diagnosis: "that condition established after study, to be chiefly responsible for occasioning the admission of the patient to the hospital for care." Co-Existing Principal Diagnosis: "when two or more diagnoses equally meet the criteria for principal diagnosis as determined by the circumstances of admission, diagnostic work up, and/or therapy provided, and the Alphabetic Index, Tabular List, or another coding guideline does not provide sequencing direction, any one of the diagnoses may be sequenced first." "When the physician has documented what appears to be a current diagnosis in the body of the record, but has not included the diagnosis in the final diagnostic statement, the physician should be asked whether the diagnosis should be added." (Source Coding Clinic 2 QTR90. p3-4) JONATHON
== END 2024-11-26 11:09 | disposition home health service (06) | DRG 699 ==
LOC: SUATTDRO → ED 14:49 → SUATTDRO 19:37 → 2N 19:37

== ENCOUNTER 2025-03-22 14:11 | Inpatient (IN) ==
[2025-03-22 15:04] LABS: Hematocrit (blood only) 31.4 % (42.0-52.0); Hemoglobin 10.0 g/dl (14.0-18.0); Immature Granulocytes # (auto) 0.01 K/uL (0.01-0.20); Immature Granulocytes % (auto) 0.1 %; Mean Corpuscular Hemoglobin 27.3 pg (25.0-34.0); Mean Corpuscular Volume 85.8 fL (80.0-100.0); Platelet Count 255 K/uL (130-400); RDW Standard Deviation 46.7 fL (36.4-46.3); Red Blood Count 3.66 M/uL (4.70-6.10); White Blood Count 7.06 K/ul (4.8-10.8)
[2025-03-22 15:24] LABS: Anion Gap 8.0 (3-11); Blood Urea Nitrogen 24.0 mg/dl (6-23); Calcium 9.0 mg/dl (8.6-10.3); Carbon Dioxide 24.0 mmol/L (21-32); Chloride 108.0 mmol/L (98-107); Creatinine Clr Calc Pharmacy 27.5 ml/min; Glucose 150.0 mg/dl (70-99(Fasting)); Potassium 4.2 mmol/L (3.5-5.1); Sodium 140.0 mmol/L (136-145)
--- NOTE | 2025-03-22 15:41 | Emergency Department Note ---
History of Present Illness General Chief complaint: Hematuria Stated complaint: BLOOD IN URINE Time Seen by Provider: 03/22/25 14:25 History of Present Illness Provider complaint: Hematuria 80-year-old male presents emergency department for hematuria. Patient reports that he has had blood in his urine since Saturday. Patient also reports that his left-sided nephrostomy tube fell out 1 month ago and he is concerned that the urine is not emptying his body properly and building up into his left inguinal area. He reports he is able to urinate. He reports no fevers. Home Medications Medication Instructions Recorded Confirmed Type Bedside Commode #1 ea 12/19/22 03/17/25 Rx blood-glucose meter (OneTouch #1 ea 07/26/23 03/17/25 Rx Verio Flex Start kit) blood sugar diagnostic (OneTouch #50 ea 09/02/23 03/17/25 Rx Verio test strips) acetaminophen 500 mg tablet 500 mg PO Q6H PRN Pain 11/23/24 03/22/25 History apixaban 2.5 mg tablet (Eliquis) 0 mg PO BID 11/23/24 03/22/25 History clopidogrel 75 mg tablet 75 mg PO BID 11/23/24 03/22/25 History atorvastatin 80 mg tablet 0 mg PO QAM 12/15/24 03/22/25 History amlodipine 10 mg tablet 10 mg PO DAILY #90 tabs 12/17/24 03/22/25 Rx metoprolol succinate 100 mg 200 mg PO DAILY 12/18/24 03/22/25 History tablet,extended release 24 hr lisinopril 20 mg tablet 20 mg PO BID 03/22/25 03/22/25 History sodium chloride 0.9 % (flush) 10 ml intra-catheter DAILY #120 mL 03/22/25 03/22/25 Rx (Normal Saline Flush 0.9 % injection syringe) sulfamethoxazole 800 1 tab PO BID 03/22/25 03/22/25 History mg-trimethoprim 160 mg tablet tamsulosin 0.4 mg capsule 0 mg PO QAM 03/22/25 03/22/25 History Allergies Allergy/AdvReac Type Severity Reaction Status Date / Time No Known Allergies Allergy Verified 03/02/25 15:42 Past Med/Surg History Problem List (Updated 03/22/25 @ 17:04 by Wero Cole MD) Type 2 diabetes mellitus Paroxysmal atrial fibrillation Coronary artery disease Displacement of nephrostomy tube (Acute) Acute UTI (Acute) KENDRICK (acute kidney injury) (Acute) Left inguinal hernia (Acute) Carbapenem-resistant Acinetobacter baumannii infection Lower urinary tract symptoms (LUTS) Complicated UTI (urinary tract infection) (Acute) Acute encephalopathy Acute pyelonephritis (Acute) PAD (peripheral artery disease) Venous insufficiency (chronic) (peripheral) Urinary incontinence Anemia Dyslipidemia Hypertension Medical History Complicated urinary tract infection Ambulatory dysfunction Fall KENDRICK (acute kidney injury) Nephrostomy present PAF (paroxysmal atrial fibrillation) Diabetes mellitus, type 2 NIDDM Bladder cancer newly diagnosed 08/2022. 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 Venous (peripheral) insufficiency CAD (coronary artery disease) "Multi-Vessel CAD s/p Ostial and Proximal LAD NEVA x 2 and OM1 NEVA 07/01/2018 (with residual borderline D2 stenosis, OM2 stenosis, RCA/PDA stenoses which are felt amenable to complex PCI" follows with OR cardiology PAD (peripheral artery disease) Arthritis of knee, left Folate deficiency hx Myocardial Infarction 2019, follows with Erik Beltran Urinary retention Microscopic hematuria patient denies History of colon polyps Benign enlargement of prostate Low back pain occasional Tubular adenoma of colon hx Surgical History S/P ureteral stent placement History of open reduction and internal fixation (ORIF) procedure Lt. Femur History of cardiac cath ~3 years ago, "failed stress test, needed cath", OR H/O colonoscopy 08/2016 Stented coronary artery ~3 years ago, [facility], following cath at [facility], x1 stent (resolut summer) placed; now f/u Luis Manuel Beltran PA-C, [facility] Cardio. Family History Father Non-Hodgkin's lymphoma Mother Multiple myeloma Sister Dyslipidemia Heart disease Hypertension Uncle Myocardial infarction Other No family history of adverse response to anesthesia Denies family history of Ovarian cancer Prostate cancer Breast cancer Colorectal cancer Social History Smoking Status: Former smoker Tobacco Type: Cigarettes Age Started Using Tobacco: 17; Age Quit Using Tobacco: 47; packs per day: 0.75; Second Hand Exposure: No; Do You Dip or Chew Tobacco: No; Hx Alcohol Use: No Hx Substance Use: No Preferred Language: Thai Communication Ability: Effective Visual Impairment: Limited Hearing Ability: Normal Director Machine Required: No Beliefs That Will Affect Care: None marital status: Single Current Living Situation: Alone Current Living Situation Comment: Lives in [facility] current occupational status: retired How many Children do You have: 0 Feels Safe at Home: Yes Childhood Exposure to Second-Hand Smoke: Yes caffeine: Yes Dental Care, Regularly: Yes Physical Activity Frequency: Daily Seatbelt Use: always Sunscreen Use: Yes Assistive Devices: Cane and Walker Physical Exam Vital Signs Vital Signs - 24 hr 03/22/25 14:15 Temperature 36.5 C Temperature Source Temporal Artery Scan Pulse Rate 56 L Pulse Rhythm Regular Pulse Strength Normal Respiratory Rate 20 Respiratory Effort / Characteristics Non-Labored Spontaneous Respiratory Depth Normal Blood Pressure 180/76 H Blood Pressure Mean 110 Blood Pressure Position Sitting Pulse Oximetry 100 Oxygen Delivery Method Room Air Sepsis Recent Fever Within 48 Hours No Sepsis New/Unexplained Change in Mental Status N/A Sepsis Action Taken by Nursing No Action Required Physical Exam GENERAL: He is oriented to person, place, and time. He appears well-developed and well-nourished. He does not appear distressed. HENT: Exam performed. - Head: Normocephalic and atraumatic. NECK: Normal range of motion. Neck supple. No JVD present. No rigidity. No tracheal deviation and normal range of motion present. CV: Normal rate, regular rhythm, normal heart sounds and intact distal pulses. There is no peripheral edema. Palpable radial pulses bue. PULM/CHEST: Effort normal and breath sounds normal. No respiratory distress. No stridor. He has no wheezes. He has no rales. ABD: The abdomen is soft. There is no tenderness. There is no rebound, no guarding. : Left-sided nephrostomy tube is displaced. Right-sided nephrostomy tube in place. Left-sided inguinal mass possible hernia that is not easily reducible with direct pressure. NEURO: Motor and sensation grossly intact. Course Course 142: The patient was evaluated in room D2. A complete history and physical exam was performed Cardiac monitoring: An order was placed for continuous cardiac monitoring. The monitor shows a rate of 60 with sinus rhythm interpreted by me Medical records reviewed. Patient was admitted from March 08, 2025 to March 15, 2025. Patient was diagnosed with complicated UTI with bilateral nephrostomy tubes. Patient was started on Unasyn 3 g every 6 hours for 7 days and infectious disease recommended continuing this for 14 days starting on February 16, 2025 with a stop date of March 21, 2025. While in the hospital the patient refused to go to [facility] facility to receive IV antibiotics so the plan from the inpatient team was to discharge him with Bactrim twice daily for 7 days. Patient was supposed to follow-up in 4 to 5 days for blood work to assess his renal function. While admitted to the hospital the patient was seen by urology. Last urology note is from Ching Campbell March 09, 2025 which stated that the patient had both bilateral nephrostomy tubes in place. When further questioned about if his nephrostomy tube fell out since being discharged, the patient states his nephrostomy tube fell out almost a month ago and a friend of his keeps putting it back in to him when it falls out. 1500: Patient was evaluated by myself and urology MAGNAFLUX OPERATOR Ching. RN recommends CT of the abdomen pelvis. Will obtain CT with contrast. 1507: Spoke with Dr. Tucker from radiology. He states that his team might be able to replace the patient's nephrostomy tube as he has had the nephrostomy tube for quite some time. Patient's i-STAT shows a creatinine of 2.2. Will obtain CT without contrast. 1602: Vital signs stable. Discussed the case with general surgery Lesvia Lyons and Dr. Guillaume via [place] text. They will be down to evaluate the patient. 1615: Vital signs stable. General surgery PA Lesvia Lyons came down to evaluate the patient with me. When we went to reexamine the patient's hernia it had reduced. Patient with no abdominal pain. Plan will be to admit the patient for IV fluids given his KENDRICK and will treat the patient with a Unasyn. Urology and general surgery will continue to follow the patient and patient will be evaluated by radiology team tomorrow for possible replacement of nephrostomy tube. Patient is agreement with the plan. 1623: Discussed case with [facility] hospitalist Dr. Cole who will evaluate the patient for admission. Administered Medications Discontinued Medications Piperacillin Sod/Tazobactam Sod (Zosyn) 4.5 gm in 120 mls @ 240 mls/hr IV NOW ONE Stop: 03/22/25 16:44 Last Admin: 03/22/25 16:34 Dose: Not Given Documented By: CHARLES Medical Decision Making Medical Records Attestation: I reviewed the patient's medical records. Medical records reviewed. Patient was admitted from March 08, 2025 to March 15, 2025. Patient was diagnosed with complicated UTI with bilateral nephrostomy tubes. Patient was started on Unasyn 3 g every 6 hours for 7 days and infectious disease recommended continuing this for 14 days starting on February 16, 2025 with a stop date of March 21, 2025. While in the hospital the patient refused to go to [facility] facility to receive IV antibiotics so the plan from the inpatient team was to discharge him with Bactrim twice daily for 7 days. Patient was supposed to follow-up in 4 to 5 days for blood work to assess his renal function. While admitted to the hospital the patient was seen by urology. Last urology note is from [facility] Campbell March 09, 2025 which stated that the patient had both bilateral nephrostomy tubes in place. Laboratory Data Attestation: I reviewed the patient's lab results. 03/22/25 14:45 03/22/25 14:45 Lab Results 03/22/25 03/22/25 03/22/25 Range/Units 14:45 15:05 Unknown WBC 7.06 (4.8-10.8) K/ul RBC 3.66 L (4.70-6.10) M/uL Hgb 10.0 L (14.0-18.0) g/dl POC Hgb 9.9 L (14.0-18.0) g/dl Hct 31.4 L (42.0-52.0) % POC Hct 29 L (42-52) % MCV 85.8 (80.0-100.0) fL MCH 27.3 (25.0-34.0) pg MCHC 31.8 L (32.0-36.0) g/dL RDW Std Deviation 46.7 H (36.4-46.3) fL RDW Coeff of Elsi 14.9 H (11.5-14.5) % Plt Count 255 (130-400) K/uL MPV 10.5 (9.4-12.4) fL Immature Gran % (Auto) 0.1 % Neut % (Auto) 56.6 % Lymph % (Auto) 36.7 % Spencer % (Auto) 4.8 % Eos % (Auto) 1.1 % Baso % (Auto) 0.7 % Neut # (Auto) 3.99 (1.40-6.50) K/uL Lymph # (Auto) 2.59 (1.20-3.40) K/uL Spencer # (Auto) 0.34 (0.11-0.59) K/uL Eos # (Auto) 0.08 (0.00-0.50) K/uL Baso # (Auto) 0.05 (0.00-0.20) K/uL Immature Gran # (Auto) 0.01 (0.01-0.20) K/uL POC Sodium 141 (135-144) mmol/L Sodium 140 (136-145) mmol/L POC Potassium 4.2 (3.3-5.0) mmol/L Potassium 4.2 (3.5-5.1) mmol/L POC Chloride 107 (101-112) mmol/L Chloride 108 H (98-107) mmol/L Carbon Dioxide 24 (21-32) mmol/L POC Total CO2 22 L (24-31) mmol/L Anion Gap 8 (3-11) POC Anion Gap 17.0 (16-25) mmol/L POC BUN 25 H (7-18) mg/dl BUN 24 H (6-23) mg/dl Creatinine 1.98 H (0.6-1.4) mg/dl POC Creatinine 2.2 H (0.6-1.3) mg/dl Est Cr Clr Drug Dosing 27.5 ml/min eGFR 33.94 BUN/Creatinine Ratio 12.1 (10-20) Glucose 150 H (70-99(Fasting)) mg/dl POC Glucose (other) 149 H (70-99) mg/dl Calcium 9.0 (8.6-10.3) mg/dl POC Ioniz Calcium Willow 1.19 (1.12-1.32) mmol/l Urine Color Yellow Urine Appearance Cloudy A (Clear) Urine pH 5.5 (4.5-7.5) Ur Specific [place] 1.020 (1.000-1.030) Urine Protein 3+ H (Negative) Urine Glucose (UA) Negative (Negative) Urine Ketones Negative (Negative) Urine Blood 3+ H (Negative) Urine Nitrite Negative (Negative) Urine Bilirubin Negative (Negative) Urine Urobilinogen Negative (Negative) Ur Leukocyte Esterase 2+ H (Negative) Urine WBC (Auto) 21-50 H (0-5) /hpf Urine RBC (Auto) >20 H (0-2) /hpf U Hyaline Cast (Auto) 3-5 H (0-2) /lpf U Epithel Cells (Auto) 0-2 (0-2) /hpf Urine Bacteria (Auto) 1+ H (None Seen) Hyaline Casts Present A (None Presnt) /lpf Urine Yeast Present A (None Prsent) Urine Comment Imaging Data Radiologist's Impression: Abdomen/Pelvis CT 03/22/25 15:[address] WITHOUT CONTRAST CT DOSE: 663.19 mGy.cm HISTORY: flank pain L inguinal hernia/mass TECHNIQUE: Multiaxial CT images of the abdomen and pelvis were performed without contrast. A dose lowering technique was utilized adhering to the principles of ALARA. COMPARISON STUDY: 03/08/2025 FINDINGS: ABDOMEN: There is a tiny gallstone without evidence of acute cholecystitis. Liver, spleen, pancreas, and adrenal glands have an unremarkable non-IV contrasted appearance. There is a well-positioned right nephroureteral catheter. There is no hydronephrosis bilaterally. There is mild inflammatory change at the renal collecting systems and upper ureters, possible ascending UTI versus early pyelonephritis. No renal or ureteral calculi seen. Pelvis: Prostate is enlarged. Urinary bladder is decompressed. There is a left inguinal hernia measuring 5 cm which contains a nonobstructed loop of distal descending colon. There is moderate retained stool. No bowel inflammation or obstruction seen. No free fluid, free air, or abscess. There is a mildly enlarged left periaortic lymph node measuring 1.2 cm series 3 image 110, decreased in size. No progressive enlarged adenopathy seen. Osseous structures: There is diffuse lumbar degenerative disc disease. There are moderate degenerative changes at the hips. IMPRESSION: 1. Small left inguinal hernia contains nonobstructed loop of distal descending colon. No bowel inflammation or obstruction seen. 2. Findings suggesting ascending UTI or early pyelonephritis. No hydronephrosis. 3. Otherwise as described. ACT 112: Negative or not required by law. The above report was generated using voice recognition software. It may contain grammatical, syntax or spelling errors. Electronically signed by: Jose Tucker M.D. 03/22/2025 3:[address] [facility] Narrative 1425: The patient was evaluated in room D2. A complete history and physical exam was performed Cardiac monitoring: An order was placed for continuous cardiac monitoring. The monitor shows a rate of 60 with sinus rhythm interpreted by me 1500: Patient was evaluated by myself and urology MAGNAFLUX OPERATOR Ching. RN recommends CT of the abdomen pelvis. Will obtain CT with contrast. 1507: Spoke with Dr. Tucker from radiology. He states that his team might be able to replace the patient's nephrostomy tube as he has had the nephrostomy tube for quite some time. Patient's i-STAT shows a creatinine of 2.2. Will obtain CT without contrast. 1602: Vital signs stable. Discussed the case with general surgery Lesvia Lyons and Dr. Guillaume via [place] text. They will be down to evaluate the patient. 1615: Vital signs stable. General surgery PA Lesvia Lyons came down to evaluate the patient with me. When we went to reexamine the patient's hernia it had reduced. Patient with no abdominal pain. Plan will be to admit the patient for IV fluids given his KENDRICK and will treat the patient with a Unasyn. Urology and general surgery will continue to follow the patient and patient will be evaluated by radiology team tomorrow for possible replacement of nephrostomy tube. Patient is agreement with the plan. 1623: Discussed case with [facility] hospitalist Dr. Cole who will evaluate the patient for admission. Impression & Plan KENDRICK (acute kidney injury), Left inguinal hernia, Acute UTI, Displacement of nephrostomy tube Discharge Plan Visit Data Chief Complaint: Hematuria Stated Complaint: BLOOD IN URINE ED Provider: Amador Dozier Discharge Problem: KENDRICK (acute kidney injury), Left inguinal hernia, Acute UTI, Displacement of nephrostomy tube Patient Disposition: Being Evaluated by Hospitalist Condition: Fair Forms Stand Alone Forms: My [facility] Prescriptions Prescriptions: No Action (DME) Bedside Commode Misc See Rx Instructions .Route Qty: 1 0RF Rx Instructions: As directed (DME) blood-glucose meter [OneTouch Verio Flex Start] Kit See Rx Instructions .Route Qty: 1 0RF Rx Instructions: Check blood sugar twice daily amlodipine 10 mg tablet 10 mg PO DAILY Qty: 90 3RF sodium chloride 0.9 % (flush) [Normal Saline Flush] Syringe 10 ml intra-catheter DAILY Qty: 120 0RF Patient Comments: 03/22- unable to verify Rx Instructions: flush nephrostomy tube with 10ml wkly (DME) OneTouch Verio test strips Strip See Rx Instructions .Route Qty: 50 1RF Rx Instructions: Test daily As directed atorvastatin 80 mg tablet 0 mg PO QAM Patient Comments: 03/22- last filled 11/02 30 day supply #30 metoprolol succinate 100 mg tablet extended release 24 hr 200 mg PO DAILY Patient Comments: Pt states he takes 200mg daily, however originally written for 100mg daily. Says he has always taken 200mg daily. acetaminophen 500 mg Tablet 500 mg PO Q6H PRN (Reason: Pain) Patient Comments: 12/15- otc unable to verify clopidogrel 75 mg tablet 75 mg PO BID Patient Comments: filled 11/30 90 day supply Eliquis 2.5 mg tablet 0 mg PO BID Patient Comments: 03/22- 2.5mg last filled 07/21 90 day supply #180; 5 mg dose last filled 01/27 30 day supply sulfamethoxazole-trimethoprim 800-160 mg tablet 1 tab PO BID Patient Comments: filled 03/21 7 day supply #14 lisinopril 20 mg tablet 20 mg PO BID tamsulosin 0.4 mg capsule 0 mg PO QAM Patient Comments: 03/22- last filled 09/14 30 day supply #30 Referrals Referrals: Delmi Nuno MD [Primary Care Provider] -
--- NOTE | 2025-03-22 15:48 | CT Scan Report ---
ABDOMEN AND PELVIS CT WITHOUT CONTRAST CT DOSE: 663.19 mGy.cm HISTORY: flank pain L inguinal hernia/mass TECHNIQUE: Multiaxial CT images of the abdomen and pelvis were performed without contrast. A dose lo wering technique was utilized adhering to the principles of ALARA. COMPARISON STUDY: 03/08/2025 FINDINGS: ABDOMEN: There is a tiny gallstone without evidence of acute cholecystitis. Liver, spleen, pancreas, and adrenal glands have an unremarkable non-IV contrasted appearance. There is a well-positioned righ t nephroureteral catheter. There is no hydronephrosis bilaterally. There is mild inflammatory change at the renal collecting systems and upper ureters, possible ascending UTI versus early pyelonephritis . No renal or ureteral calculi seen. Pelvis: Prostate is enlarged. Urinary bladder is decompressed. There is a left inguinal hernia measur ing 5 cm which contains a nonobstructed loop of distal descending colon. There is moderate retained s tool. No bowel inflammation or obstruction seen. No free fluid, free air, or abscess. There is a mild ly enlarged left periaortic lymph node measuring 1.2 cm series 3 image 110, decreased in size. No pro gressive enlarged adenopathy seen. Osseous structures: There is diffuse lumbar degenerative disc disease. There are moderate degenerativ e changes at the hips. IMPRESSION: 1. Small left inguinal hernia contains nonobstructed loop of distal descending colon. No bowel inflam mation or obstruction seen. 2. Findings suggesting ascending UTI or early pyelonephritis. No hydronephrosis. 3. Otherwise as described. ACT 112: Negative or not required by law. The above report was generated using voice recognition software. It may contain grammatical, syntax o r spelling errors. Electronically signed by: Jose Tucker M.D. 03/22/2025 3:46 PM
[2025-03-22 16:00] LABS: Appearance Urine Cloudy (Clear); Bacteria Urine Automated 1+ (None Seen); Epithelial Cell Urine Auto 0-2 /hpf (0-2); Glucose Urine UA Negative (Negative); RBC Urine Automated >20 /hpf (0-2); WBC Urine Automated 21-50 /hpf (0-5)
--- NOTE | 2025-03-22 16:02 | Urology Consultation ---
<Statement entered by Severiano Coburn MD - 03/23/25 13:49> Chart reviewed plan reviewed and agree as written. Date of Consultation March 22, 2025 Assessment & Plan (1) Displacement of nephrostomy tube: Plan 80yo male with a history of bladder cancer and bilateral nephroureteral stents who presented to the ED today due to concerns of hematuria and left nephrostomy tube displacement. Patient is afebrile, hypertensive, otherwise stable. Labs show no leukocytosis, creatinine 1.98 (was previously 1.33 on 03/13/2025). Urinalysis pending. The left nephrostomy tube is out. The right nephrostomy tube is in place and draining tea colored urine. CT abdomen pelvis ordered -await results. May need to consider transfer for nephrostomy tube replacement pending results. Urology to follow. History of Present Illness History of Present Illness 80-year-old male who presented to the emergency room today with complaints of hematuria and that his left-sided nephrostomy tube fell out. Patient is known to the urology service, follows with Dr. Krishnamurthy. History of bladder cancer s/p TURBT with most recent resection in September [address] Krishnamurthy. Was transferred for bilateral nephrostomy tube placement in October 2024 secondary to urosepsis and bilateral hydronephrosis. The nephrostomy tubes retracted and were nonfunctioning and were converted to bilateral nephroureteral catheters in December 2024 to prevent future dislodgement. In the ED, he was afebrile and hemodynamically stable. He also reported a bulge of his left inguinal area. Reports that he has been urinating. Right nephrostomy tube in place and draining tea colored urine. Denies fevers. Denies any significant pain. Allergies Allergy/AdvReac Type Severity Reaction Status Date / Time No Known Allergies Allergy Verified 03/02/25 15:42 Home Medications Medication Instructions Recorded Confirmed Type Bedside Commode #1 ea 12/19/22 03/17/25 Rx blood-glucose meter (OneTouch #1 ea 07/26/23 03/17/25 Rx Verio Flex Start kit) blood sugar diagnostic (OneTouch #50 ea 09/02/23 03/17/25 Rx Verio test strips) acetaminophen 500 mg tablet 500 mg PO Q6H PRN Pain 11/23/24 03/22/25 History apixaban 2.5 mg tablet (Eliquis) 0 mg PO BID 11/23/24 03/22/25 History clopidogrel 75 mg tablet 75 mg PO BID 11/23/24 03/22/25 History atorvastatin 80 mg tablet 0 mg PO QAM 12/15/24 03/22/25 History amlodipine 10 mg tablet 10 mg PO DAILY #90 tabs 12/17/24 03/22/25 Rx metoprolol succinate 100 mg 200 mg PO DAILY 12/18/24 03/22/25 History tablet,extended release 24 hr lisinopril 20 mg tablet 20 mg PO BID 03/22/25 03/22/25 History sodium chloride 0.9 % (flush) 10 ml intra-catheter DAILY #120 mL 03/22/25 03/22/25 Rx (Normal Saline Flush 0.9 % injection syringe) sulfamethoxazole 800 1 tab PO BID 03/22/25 03/22/25 History mg-trimethoprim 160 mg tablet tamsulosin 0.4 mg capsule 0 mg PO QAM 03/22/25 03/22/25 History Patient History Medical History Complicated urinary tract infection Ambulatory dysfunction Fall KENDRICK (acute kidney injury) Nephrostomy present PAF (paroxysmal atrial fibrillation) Diabetes mellitus, type 2 NIDDM Bladder cancer newly diagnosed 08/2022. 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 Venous (peripheral) insufficiency CAD (coronary artery disease) "Multi-Vessel CAD s/p Ostial and Proximal LAD NEVA x 2 and OM1 NEVA 07/01/2018 (with residual borderline D2 stenosis, OM2 stenosis, RCA/PDA stenoses which are felt amenable to complex PCI" follows with [facility] PAD (peripheral artery disease) Arthritis of knee, left Folate deficiency hx Myocardial Infarction 2019, follows with Erik Beltran Urinary retention Microscopic hematuria patient denies History of colon polyps Benign enlargement of prostate Low back pain occasional Tubular adenoma of colon hx Surgical History S/P ureteral stent placement History of open reduction and internal fixation (ORIF) procedure Lt. Femur History of cardiac cath ~3 years ago, "failed stress test, needed cath", [place] H/O colonoscopy 08/2016 Stented coronary artery ~3 years ago, [facility], following cath at [facility], x1 stent (resolut summer) placed; now f/u Luis Manuel Beltran PA-C, [facility] Cardio. Family History Father Non-Hodgkin's lymphoma Mother Multiple myeloma Sister Dyslipidemia Heart disease Hypertension Uncle Myocardial infarction Other No family history of adverse response to anesthesia Denies family history of Ovarian cancer Prostate cancer Breast cancer Colorectal cancer Social History Smoking Status: Never smoker Tobacco Type: Cigarettes Age Started Using Tobacco: 17; Age Quit Using Tobacco: 47; packs per day: 0.75; Second Hand Exposure: No; Do You Dip or Chew Tobacco: No; Hx Alcohol Use: No Hx Substance Use: No Preferred Language: Swiss Communication Ability: Effective Visual Impairment: Limited Hearing Ability: Normal Pickle Processor Required: No Beliefs That Will Affect Care: None marital status: Single Current Living Situation: Alone Current Living Situation Comment: Lives in [facility]. current occupational status: retired How many Children do You have: 0 Feels Safe at Home: Yes Childhood Exposure to Second-Hand Smoke: Yes caffeine: Yes Dental Care, Regularly: Yes Physical Activity Frequency: Daily Seatbelt Use: always Sunscreen Use: Yes Assistive Devices: Cane, Hospital Bed and Walker Review of Systems Review of Systems: All systems reviewed & are unremarkable except as noted in HPI & below Physical Exam Constitutional: no acute distress Respiratory: no respiratory distress and no labored breathing Neurologic: awake Psychiatric: A+Ox3, euthymic affect Genitourinary: Left-sided nephrostomy tube is displaced. Right-sided nephrostomy tube in place. Left-sided inguinal bulge. Results & Data Vital Signs (Past 12 Hours) Vital Signs Temp Pulse Resp BP Pulse Ox O2 Del Method 03/22/25 14:15 36.5 C 56 L 20 180/76 H 100 Room Air PG Care Time/CCT Total # of Minutes Spent Total Time Spent with Patient: Total time spent is greater than 50% in coordination of care (as documented) at patient's floor/unit and/or counseling patient: Coding Level of Care Code 68108 OP VST EST LOW 20 MIN Diagnoses Displacement of nephrostomy tube T83.022A
--- NOTE | 2025-03-22 16:23 | Surgery Consultation ---
Date of Consultation March 22, 2025 Assessment & Plan (1) Left inguinal hernia: 80 yo male with chronic bilateral nephrostomy tubes presented to ED with complaint of hematuria and left groin swelling which he thought was urine buildup due to nephrostomy tube falling out. CT scan of abd/pelvis with left inguinal hernia containing colon however not obstructed. This was reduced by Dr. Dozier in ED. No acute surgical intervention required. Bowel regimen to avoid constipation/straining. Educated patient on inguinal hernia and risk of recurrent incarceration. Educated patient on manual reduction of hernia if bulge visible and present to ED with any pain associated with a bulge that is unable to be reduced with any nausea, vomiting or decreased bowel function. Our services signing off. Hospitalist admit for management of nephrostomy tubes and the ascending UTI/early pyelonephritis. Discussed with Dr. llamas who agrees with above. History of Present Illness Reason for Consultation: Incarcerated inguinal hernia Requesting Physician: Dr. Dozier History of Present Illness Mr Benavidez is a 80 year old male wit history of PAD, venous insufficiency, urinary incontinence, chronic bilateral nephrostomy tubes, HTN, dyslipidemia, complicated UTI who presented to ED with complaint of hematuria and swelling in left groin with some tenderness. Denies of any abdominal pain, decrease in bowel function, nausea or vomiting. States he thought urine was building up in his left groin due to nephrostomy tube falling out. no history of inguinal hernia. Noticed bulge about 3 days ago. Allergies Allergy/AdvReac Type Severity Reaction Status Date / Time No Known Allergies Allergy Verified 03/02/25 15:42 Home Medications Medication Instructions Recorded Confirmed Type Bedside Commode #1 ea 12/19/22 03/17/25 Rx blood-glucose meter (OneTouch #1 ea 07/26/23 03/17/25 Rx Verio Flex Start kit) blood sugar diagnostic (OneTouch #50 ea 09/02/23 03/17/25 Rx Verio test strips) acetaminophen 500 mg tablet 500 mg PO Q6H PRN Pain 11/23/24 03/17/25 History apixaban 2.5 mg tablet (Eliquis) 2.5 mg PO BID 11/23/24 03/17/25 History clopidogrel 75 mg tablet 75 mg PO BID 11/23/24 03/17/25 History atorvastatin 80 mg tablet 80 mg PO QAM 12/15/24 03/17/25 History amlodipine 10 mg tablet 10 mg PO DAILY #90 tabs 12/17/24 03/17/25 Rx lisinopril 20 mg tablet 20 mg PO BID #180 tabs 12/17/24 03/17/25 Rx metoprolol succinate 100 mg 200 mg PO DAILY 12/18/24 03/17/25 History tablet,extended release 24 hr tamsulosin 0.4 mg capsule 0.4 mg PO QAM #0 caps 12/22/24 03/17/25 Rx sodium chloride 0.9 % (flush) 10 ml intra-catheter DAILY #120 mL 03/22/25 Rx (Normal Saline Flush 0.9 % injection syringe) Patient History Medical History Complicated urinary tract infection Ambulatory dysfunction Fall KENDRICK (acute kidney injury) Nephrostomy present PAF (paroxysmal atrial fibrillation) Diabetes mellitus, type 2 NIDDM Bladder cancer newly diagnosed 08/2022. CAD (coronary artery disease) "Multi-Vessel CAD s/p Ostial and Proximal LAD NEVA x 2 and OM1 NEVA 07/01/2018 (with residual borderline D2 stenosis, OM2 stenosis, RCA/PDA stenoses which are felt amenable to complex PCI" follows with [facility] History of COVID-19 (2022) resolved Bladder cancer dx 08/2022 History of anemia denies known current issues Diabetes diet controlled Leg edema, left chronic, denies change or worsening PAF (paroxysmal atrial fibrillation) patient denies, follows with Erik Beltran, taking Eliquis Dyslipidemia [facility] (current) use of anticoagulants Venous (peripheral) insufficiency CAD (coronary artery disease) "Multi-Vessel CAD s/p Ostial and Proximal LAD NEVA x 2 and OM1 NEVA 07/01/2018 (with residual borderline D2 stenosis, OM2 stenosis, RCA/PDA stenoses which are felt amenable to complex PCI" follows with [facility] PAD (peripheral artery disease) Arthritis of knee, left Folate deficiency hx Myocardial Infarction 2019, follows with [facility] Urinary retention Microscopic hematuria patient denies History of colon polyps Benign enlargement of prostate Low back pain occasional Tubular adenoma of colon hx Surgical History S/P ureteral stent placement History of open reduction and internal fixation (ORIF) procedure Lt. Femur History of cardiac cath ~3 years ago, "failed stress test, needed cath", [place] H/[place] colon[place] 08/2016 Stented coronary artery ~3 years ago, [facility], following cath at [facility], x1 stent (resolut summer) placed; now f/u Luis Manuel Beltran PA-C, [facility] Cardio. Family History Father Non-Hodgkin's lymphoma Mother Multiple myeloma Sister Dyslipidemia Heart disease Hypertension Uncle Myocardial infarction Other No family history of adverse response to anesthesia Denies family history of Ovarian cancer Prostate cancer Breast cancer Colorectal cancer Social History Smoking Status: Former smoker Tobacco Type: Cigarettes Age Started Using Tobacco: 17; Age Quit Using Tobacco: 47; packs per day: 0.75; Second Hand Exposure: No; Do You Dip or Chew Tobacco: No; Hx Alcohol Use: No Hx Substance Use: No Preferred Language: Honduran Communication Ability: Effective Visual Impairment: Limited Hearing Ability: Normal Vb Net Programmer Required: No Beliefs That Will Affect Care: None marital status: Single Current Living Situation: Alone Current Living Situation Comment: Lives in [facility] current occupational status: retired How many Children do You have: 0 Feels Safe at Home: Yes Childhood Exposure to Second-Hand Smoke: Yes caffeine: Yes Dental Care, Regularly: Yes Physical Activity Frequency: Daily Seatbelt Use: always Sunscreen Use: Yes Assistive Devices: Cane and Walker Review of Systems Review of Systems: All systems reviewed & are unremarkable except as noted in HPI & below Physical Exam Constitutional: WD/WN, vitals as above cooperative and comfortable; no acute distress, not ill appearing and not in distress Respiratory: normal respiratory effort; no respiratory distress and no labored breathing Gastrointestinal (Abdomen): Inspection/Auscultation: abdomen normal to inspection; abdomen not distended Left Groin: there is no visible hernia, previous incarcerated inguinal hernia reduced by ED physician. No pain on palpation. Skin: no rashes, warm and dry Psychiatric: Orientation: alert and oriented x 3 Results & Data Vital Signs (Past 12 Hours) Vital Signs Temp Pulse Resp BP Pulse Ox O2 Del Method 03/22/25 14:15 36.5 C 56 L 20 180/76 H 100 Room Air Laboratory Results 03/22/25 03/22/25 03/22/25 Range/Units Unknown 15:05 14:45 WBC 7.06 (4.8-10.8) K/ul RBC 3.66 L (4.70-6.10) M/uL Hgb 10.0 L (14.0-18.0) g/dl POC Hgb 9.9 L (14.0-18.0) g/dl Hct 31.4 L (42.0-52.0) % POC Hct 29 L (42-52) % MCV 85.8 (80.0-100.0) fL MCH 27.3 (25.0-34.0) pg MCHC 31.8 L (32.0-36.0) g/dL RDW Std Deviation 46.7 H (36.4-46.3) fL RDW Coeff of Elsi 14.9 H (11.5-14.5) % Plt Count 255 (130-400) K/uL MPV 10.5 (9.4-12.4) fL Immature Gran % (Auto) 0.1 % Neut % (Auto) 56.6 % Lymph % (Auto) 36.7 % [place] % (Auto) 4.8 % Eos % (Auto) 1.1 % Baso % (Auto) 0.7 % Neut # (Auto) 3.99 (1.40-6.50) K/uL Lymph # (Auto) 2.59 (1.20-3.40) K/uL [place] # (Auto) 0.34 (0.11-0.59) K/uL Eos # (Auto) 0.08 (0.00-0.50) K/uL Baso # (Auto) 0.05 (0.00-0.20) K/uL Immature Gran # (Auto) 0.01 (0.01-0.20) K/uL POC Sodium 141 (135-144) mmol/L Sodium 140 (136-145) mmol/L POC Potassium 4.2 (3.3-5.0) mmol/L Potassium 4.2 (3.5-5.1) mmol/L POC Chloride 107 (101-112) mmol/L Chloride 108 H (98-107) mmol/L Carbon Dioxide 24 (21-32) mmol/L POC Total CO2 22 L (24-31) mmol/L Anion Gap 8 (3-11) POC Anion Gap 17.0 (16-25) mmol/L POC BUN 25 H (7-18) mg/dl BUN 24 H (6-23) mg/dl Creatinine 1.98 H (0.6-1.4) mg/dl POC Creatinine 2.2 H (0.6-1.3) mg/dl Est Cr Clr Drug Dosing 27.5 ml/min eGFR 33.94 BUN/Creatinine Ratio 12.1 (10-20) Glucose 150 H (70-99(Fasting)) mg/dl POC Glucose (other) 149 H (70-99) mg/dl Calcium 9.0 (8.6-10.3) mg/dl POC Ioniz Calcium [place] 1.19 (1.12-1.32) mmol/l Urine Color Yellow Urine Appearance Cloudy A (Clear) Urine pH 5.5 (4.5-7.5) Ur Specific [place] 1.020 (1.000-1.030) Urine Protein 3+ H (Negative) Urine Glucose (UA) Negative (Negative) Urine Ketones Negative (Negative) Urine Blood 3+ H (Negative) Urine Nitrite Negative (Negative) Urine Bilirubin Negative (Negative) Urine Urobilinogen Negative (Negative) Ur Leukocyte Esterase 2+ H (Negative) Urine WBC (Auto) 21-50 H (0-5) /hpf Urine RBC (Auto) >20 H (0-2) /hpf U Hyaline Cast (Auto) 3-5 H (0-2) /lpf U Epithel Cells (Auto) 0-2 (0-2) /hpf Urine Bacteria (Auto) 1+ H (None Seen) Hyaline Casts Present A (None Presnt) /lpf Urine Yeast Present A (None Prsent) Urine Comment Diagnostic Findings ABDOMEN AND PELVIS CT WITHOUT CONTRAST CT DOSE: 663.19 mGy.cm HISTORY: flank pain L inguinal hernia/mass TECHNIQUE: Multiaxial CT images of the abdomen and pelvis were performed without contrast. A dose lowering technique was utilized adhering to the principles of ALARA. COMPARISON STUDY: 03/08/2025 FINDINGS: ABDOMEN: There is a tiny gallstone without evidence of acute cholecystitis. Liver, spleen, pancreas, and adrenal glands have an unremarkable non-IV contrasted appearance. There is a well-positioned right nephroureteral catheter. There is no hydronephrosis bilaterally. There is mild inflammatory change at the renal collecting systems and upper ureters, possible ascending UTI versus early pyelonephritis. No renal or ureteral calculi seen. Pelvis: Prostate is enlarged. Urinary bladder is decompressed. There is a left inguinal hernia measuring 5 cm which contains a nonobstructed loop of distal descending colon. There is moderate retained stool. No bowel inflammation or obstruction seen. No free fluid, free air, or abscess. There is a mildly enlarged left periaortic lymph node measuring 1.2 cm series 3 image 110, decreased in size. No progressive enlarged adenopathy seen. Osseous structures: There is diffuse lumbar degenerative disc disease. There are moderate degenerative changes at the hips. IMPRESSION: 1. Small left inguinal hernia contains nonobstructed loop of distal descending colon. No bowel inflammation or obstruction seen. 2. Findings suggesting ascending UTI or early pyelonephritis. No hydronephrosis. 3. Otherwise as described. Personally reviewed ct scan images and concur with above findings
[2025-03-22] MEDS: PIPERACILLIN/TAZOBACTAM 4.5 GM/120 ML BAG IV ONE (16:34)
--- NOTE | 2025-03-22 17:06 | History & Physical Report ---
Date of Service March 22, 2025 Assessment & Plan (1) Displacement of nephrostomy tube: Plan: Left nephrostomy tube will be replaced tomorrow, March 23, per interventional radiology (2) KENDRICK (acute kidney injury): Plan: IV fluids ordered. Monitor urine output. Serial labs (3) Complicated UTI (urinary tract infection): Plan: Most recent urine culture grew Acinetobacter. He has been started on intravenous Zosyn, day 1 (4) Coronary artery disease: Plan: Currently stable. Continue current medical management (5) Paroxysmal atrial fibrillation: Plan: Currently rate controlled in normal sinus rhythm. Eliquis is temporarily on hold (6) Type 2 diabetes mellitus: Plan: ADA diet. Sliding scale coverage while hospitalized Plan Hopeful discharge back to home within the next day or 2 History of Present Illness Chief Complaint: Left nephrostomy tube has fallen out. Gross hematuria for several days Primary Care Provider: Delmi Nuno MD 80-year-old white male with bilateral nephrostomy tubes from benign prostatic hypertrophy and outflow tract obstruction. The left nephrostomy tube has come out several times over the past several weeks and has been replaced by the patient several times and now is out again. He has had gross hematuria for at least 3 days. There is probably a urinary tract infection. Recent urine culture grew Acinetobacter and he has been given intravenous Zosyn in the ER which we will continue. He has acute kidney injury on admission with creatinine 1.9 and baseline 1.3. Apparently our radiologist, Dr. Tucker, has agreed to attempt to replace the left nephrostomy tube tomorrow, March 23. The patient is admitted for further evaluation and treatment. Eliquis has been placed on hold Allergies Allergy/AdvReac Type Severity Reaction Status Date / Time No Known Allergies Allergy Verified 03/02/25 15:42 Home Medications Medication Instructions Recorded Confirmed Type Bedside Commode #1 ea 12/19/22 03/17/25 Rx blood-glucose meter (OneTouch #1 ea 07/26/23 03/17/25 Rx Verio Flex Start kit) blood sugar diagnostic (OneTouch #50 ea 09/02/23 03/17/25 Rx Verio test strips) acetaminophen 500 mg tablet 500 mg PO Q6H PRN Pain 11/23/24 03/22/25 History apixaban 2.5 mg tablet (Eliquis) 0 mg PO BID 11/23/24 03/22/25 History clopidogrel 75 mg tablet 75 mg PO BID 11/23/24 03/22/25 History atorvastatin 80 mg tablet 0 mg PO QAM 12/15/24 03/22/25 History amlodipine 10 mg tablet 10 mg PO DAILY #90 tabs 12/17/24 03/22/25 Rx metoprolol succinate 100 mg 200 mg PO DAILY 12/18/24 03/22/25 History tablet,extended release 24 hr lisinopril 20 mg tablet 20 mg PO BID 03/22/25 03/22/25 History sodium chloride 0.9 % (flush) 10 ml intra-catheter DAILY #120 mL 03/22/25 03/22/25 Rx (Normal Saline Flush 0.9 % injection syringe) sulfamethoxazole 800 1 tab PO BID 03/22/25 03/22/25 History mg-trimethoprim 160 mg tablet tamsulosin 0.4 mg capsule 0 mg PO QAM 03/22/25 03/22/25 History Past Med/Surg History Problem List (Updated 03/22/25 @ 17:04 by Wero Cole MD) Type 2 diabetes mellitus Paroxysmal atrial fibrillation Coronary artery disease Displacement of nephrostomy tube (Acute) Acute UTI (Acute) KENDRICK (acute kidney injury) (Acute) Left inguinal hernia (Acute) Carbapenem-resistant Acinetobacter baumannii infection Lower urinary tract symptoms (LUTS) Complicated UTI (urinary tract infection) (Acute) Acute encephalopathy Acute pyelonephritis (Acute) PAD (peripheral artery disease) Venous insufficiency (chronic) (peripheral) Urinary incontinence Anemia Dyslipidemia Hypertension Medical History Complicated urinary tract infection Ambulatory dysfunction Fall KENDRICK (acute kidney injury) Nephrostomy present PAF (paroxysmal atrial fibrillation) Diabetes mellitus, type 2 NIDDM Bladder cancer newly diagnosed 08/2022. CAD (coronary artery disease) "Multi-Vessel CAD s/p Ostial and Proximal LAD NEVA x 2 and OM1 NEVA 07/01/2018 (with residual borderline D2 stenosis, OM2 stenosis, RCA/PDA stenoses which are felt amenable to complex PCI" follows with [place] [facility] History of COVID-19 (2022) resolved Bladder cancer dx 08/2022 History of anemia denies known current issues Diabetes diet controlled Leg edema, left chronic, denies change or worsening PAF (paroxysmal atrial fibrillation) patient denies, follows with Erik Beltran, taking Eliquis Dyslipidemia FPC (current) use of anticoagulants Venous (peripheral) insufficiency CAD (coronary artery disease) "Multi-Vessel CAD s/p Ostial and Proximal LAD NEVA x 2 and OM1 NEVA 07/01/2018 (with residual borderline D2 stenosis, OM2 stenosis, RCA/PDA stenoses which are felt amenable to complex PCI" follows with [facility] PAD (peripheral artery disease) Arthritis of knee, left Folate deficiency hx Myocardial Infarction 2019, follows with Erik Beltran Urinary retention Microscopic hematuria patient denies History of colon polyps Benign enlargement of prostate Low back pain occasional Tubular adenoma of colon hx Surgical History S/P ureteral stent placement History of open reduction and internal fixation (ORIF) procedure Lt. Femur History of cardiac cath ~3 years ago, "failed stress test, needed cath", [place] H/O colonoscopy 08/2016 Stented coronary artery ~3 years ago, [facility], following cath at [facility], x1 stent (resolut summer) placed; now f/u Luis Manuel Beltran PA-C, [facility] Cardio. Family History Father Non-Hodgkin's lymphoma Mother Multiple myeloma Sister Dyslipidemia Heart disease Hypertension Uncle Myocardial infarction Other No family history of adverse response to anesthesia Denies family history of Ovarian cancer Prostate cancer Breast cancer Colorectal cancer Social History Smoking Status: Former smoker Tobacco Type: Cigarettes Age Started Using Tobacco: 17; Age Quit Using Tobacco: 47; packs per day: 0.75; Second Hand Exposure: No; Do You Dip or Chew Tobacco: No; Hx Alcohol Use: No Hx Substance Use: No Preferred Language: Zimbabwean Communication Ability: Effective Visual Impairment: Limited Hearing Ability: Normal Engineering Executive Required: No Beliefs That Will Affect Care: None marital status: Single Current Living Situation: Alone Current Living Situation Comment: Lives in [facility] current occupational status: retired How many Children do You have: 0 Feels Safe at Home: Yes Childhood Exposure to Second-Hand Smoke: Yes caffeine: Yes Dental Care, Regularly: Yes Physical Activity Frequency: Daily Seatbelt Use: always Sunscreen Use: Yes Assistive Devices: Cane and Walker Review of Systems 2 Review of Systems: Constitutionalno fever or chills ENTno blurred vision, no double vision, no epistaxis, no sore throat Respiratoryno cough, no wheezing, no shortness of breath Cardiacno palpitations, no chest pain, no syncope Denny nausea, vomiting, diarrhea, melena, hematochezia GUthe patient is status bilateral nephrostomy tubes. He states he has had gross hematuria for the past 3 days. Musculoskeletalno joint pain, no muscle tenderness Skinno bruising, no rashes, no pruritus Neurono isolated weakness, no paresthesia, no weakness Psychno depression, no anxiety Physical Exam 2 Physical Exam: General-alert and oriented x3, no fever, no chills HEENT-head atraumatic and normocephalic, pupils equal and reactive to light, extraocular muscles intact Neck-no lymphadenopathy or thyromegaly, trachea midline Chest-clear to auscultation. No rales, wheezing or rhonchi Cardiac-regular rate and rhythm, normal S1 and S2 Abdomen-normal bowel sounds, no hepatosplenomegaly Extremities-no cyanosis, clubbing, or edema Neuro-cranial nerves II through XII intact, motor and sensory function within normal limits, strength symmetrical, no focal deficits Psych-normal affect, normal mood Results & Data Results & Data Vital Signs (Past 12 Hours) Vital Signs Temp Pulse Resp BP Pulse Ox O2 Del Method 03/22/25 14:15 36.5 C 56 L 20 180/76 H 100 Room Air Laboratory Results 03/22/25 14:45 03/22/25 14:45 Code Status & VTE Plan Code Status Full code PG Care Time/CCT Total # of Minutes Spent Total Time Spent with Patient: Total time spent is greater than 50% in coordination of care (as documented) at patient's floor/unit and/or counseling patient: Coding Level of Care Code 37059 INT INP/OBS CARE 3/75MIN Diagnoses Displacement of nephrostomy tube T83.022A KENDRICK (acute kidney injury) N17.9 Complicated UTI (urinary tract infection) N39.0 Coronary artery disease I25.10 Paroxysmal atrial fibrillation I48.0 Type 2 diabetes mellitus E11.9
[2025-03-22] MEDS: SODIUM CHLORIDE 0.9% 1,000 ML IV SCH ×2 (17:14→21:30)
[2025-03-22] MEDS: AMPICILLIN/SULBACTAM SOD 3,000 MG/100 ML BAG IV STA (17:15)
[2025-03-22] MEDS ORDERED: DEXTROSE 50% 50 ML SYRINGE IV PRN (20:58)
[2025-03-22] MEDS ORDERED: CARBOHYDRATES FOR HYPOGLYCEMIA PO PRN (20:58)
[2025-03-22] MEDS ORDERED: GLUCOSE 10 TAB/TUBE PO PRN (20:58)
[2025-03-22] MEDS ORDERED: ACETAMINOPHEN 500 MG TAB PO PRN (20:58)
[2025-03-22] MEDS ORDERED: GLUCAGON FOR INJ 1 MG VIAL SQ PRN (20:58)
[2025-03-22] MEDS ORDERED: GLUCOSE 40% GEL 15 GM TUBE PO PRN (20:58)
[2025-03-22] MEDS: INSULIN ASPART PER UNIT CHARGE SC SCH (21:14)
[2025-03-22] MEDS: PIPERACILLIN/TAZOBACTAM 4.5 GM/100 ML BAG IV SCH (22:11)
[2025-03-23] MEDS: ATORVASTATIN 40 MG TAB PO SCH (08:44)
[2025-03-23] MEDS: CLOPIDOGREL BISULFATE 75 MG TAB PO SCH (08:45)
[2025-03-23] MEDS: TAMSULOSIN HCL 0.4 MG CAP PO SCH (08:46)
[2025-03-23] MEDS: METOPROLOL SUCC 50MG EXT REL TAB PO SCH (09:14)
[2025-03-23 10:02] LABS: Hematocrit (blood only) 27.3 % (42.0-52.0); Hemoglobin 8.9 g/dl (14.0-18.0); Immature Granulocytes # (auto) 0.00 K/uL (0.01-0.20); Immature Granulocytes % (auto) 0.0 %; Mean Corpuscular Hemoglobin 27.6 pg (25.0-34.0); Mean Corpuscular Volume 84.8 fL (80.0-100.0); Platelet Count 184 K/uL (130-400); RDW Standard Deviation 46.1 fL (36.4-46.3); Red Blood Count 3.22 M/uL (4.70-6.10); White Blood Count 4.69 K/ul (4.8-10.8)
--- NOTE | 2025-03-23 10:19 | Urology Progress Note ---
<Statement entered by Severiano Coburn MD - 03/23/25 13:47> Chart reviewed plan reviewed and agree as written. Would be ideal if patient could have both PCNs replaced as will be due for change shortly. I understand there have been a lot of logistic barriers to the patient having these tubes exchanged at tertiary facilities if this would be viable in the future at our hospital I am sure he would appreciate it. If not even a one time exchange would reduce the burden of managing these tubes. Date of Service March 23, 2025 Assessment & Plan (1) Complicated UTI (urinary tract infection): (2) Displacement of nephrostomy tube: (3) KENDRICK (acute kidney injury): Plan 80yo male with a history of bladder cancer and hydronephrosis managed with bilateral nephroureteral catheters (placed December 2024 at [facility]) admitted with displaced left nephrostomy tube, KENDRICK, possible UTI. Patient is afebrile, mildly hypertensive, otherwise stable. Labs - WBCs 4.69, Hemoglobin 8.9, Creatinine 1.54 (1.98 on admit). Urine culture pending. He is on Zosyn. The left nephrostomy tube is to be replaced today per radiology. The right nephrostomy tube is in place and draining yellow urine. Would ideally replace both tubes today if able, will defer to IR. Continue supportive care and antibiotic therapy. Urology to follow - please contact us with any questions/concerns. Admission and Anticipated Discharge Date Admission Date: March 22, 2025 Subjective Patient seen at bedside this morning. Awake and resting in bed on arrival. No acute distress. Reports he is feeling well overall. No reported pain. Right nephrostomy tube draining clear urine. No fevers. Review of Systems Constitutional: as per Subjective / HPI Genitourinary: + as per Subjective / HPI Physical Exam Constitutional: no acute distress Respiratory: no respiratory distress and no labored breathing Neurologic: awake Psychiatric: A+Ox3, euthymic affect Genitourinary: Right-sided nephrostomy tube in place. Results & Data Vital Signs (Past 12 Hours) Vital Signs Temp Pulse Resp BP Pulse Ox O2 Del Method 03/23/25 07:33 36.4 C L 50 L 14 155/66 H 98 Room Air 03/22/25 22:51 36.5 C 51 L 16 143/64 H 97 Room Air PG Care Time/CCT Total # of Minutes Spent Total Time Spent with Patient: Total time spent is greater than 50% in coordination of care (as documented) at patient's floor/unit and/or counseling patient: Coding Level of Care Code 04571 SUB INP/OBS CARE 2/35MIN Diagnoses Complicated UTI (urinary tract infection) N39.0 Displacement of nephrostomy tube T83.022A KENDRICK (acute kidney injury) N17.9
[2025-03-23 10:40] LABS: Anion Gap 5.0 (3-11); Calcium 8.1 mg/dl (8.6-10.3); Carbon Dioxide 20.0 mmol/L (21-32); Chloride 112.0 mmol/L (98-107); Potassium 4.2 mmol/L (3.5-5.1); Sodium 137.0 mmol/L (136-145)
[2025-03-23 10:45] LABS: Blood Urea Nitrogen 21.0 mg/dl (6-23); Creatinine Clr Calc Pharmacy 34.0 ml/min; Glucose 113.0 mg/dl (70-99(Fasting))
--- NOTE | 2025-03-23 12:28 | Hospitalist Progress Note ---
Date of Service March 23, 2025 Assessment & Plan (1) Displacement of nephrostomy tube: Plan: Left nephrostomy tube will be replaced today, March 23, per interventional radiology. Urology has requested that both tubes be replaced. IR physician notified (2) KENDRICK (acute kidney injury): Plan: Creatinine improved with IV fluids. Now 1.5. Monitor urine output. Serial labs (3) Complicated UTI (urinary tract infection): Plan: Most recent urine culture grew Acinetobacter. Repeat urine culture results pending. Continue intravenous Zosyn, day 2 (4) Coronary artery disease: Plan: Currently stable. Continue current medical management (5) Paroxysmal atrial fibrillation: Plan: Currently rate controlled in normal sinus rhythm. Eliquis is temporarily on hold. This will be restarted postprocedure (6) Type 2 diabetes mellitus: Plan: ADA diet. Sliding scale coverage while hospitalized Plan Hopeful discharge back to home tomorrow, March 24 Admission and Anticipated Discharge Date Admission Date: March 22, 2025 Subjective Alert and oriented. No distress. He will undergo left nephrostomy tube replacement today per IR. Urology is requesting both tubes to be replaced if possible. Surgery will see the patient as an outpatient for eventual definitive treatment of the left inguinal hernia. He remains on intravenous Zosyn, day 2. Creatinine has improved to 1.5 with IV fluids. Glucose acceptable at 113 today, March 23. Review of Systems 2 Review of Systems: Constitutionalno fever or chills ENTno blurred vision, no double vision, no epistaxis, no sore throat Respiratoryno cough, no wheezing, no shortness of breath Cardiacno palpitations, no chest pain, no syncope Denny nausea, vomiting, diarrhea, melena, hematochezia GUthe patient is status bilateral nephrostomy tubes. He states he has had gross hematuria for the past 3 days. Musculoskeletalno joint pain, no muscle tenderness Skinno bruising, no rashes, no pruritus Neurono isolated weakness, no paresthesia, no weakness Psychno depression, no anxiety Physical Exam 2 Physical Exam: General-alert and oriented x3, no fever, no chills HEENT-head atraumatic and normocephalic, pupils equal and reactive to light, extraocular muscles intact Neck-no lymphadenopathy or thyromegaly, trachea midline Chest-clear to auscultation. No rales, wheezing or rhonchi Cardiac-regular rate and rhythm, normal S1 and S2 Abdomen-normal bowel sounds, no hepatosplenomegaly Extremities-no cyanosis, clubbing, or edema Neuro-cranial nerves II through XII intact, motor and sensory function within normal limits, strength symmetrical, no focal deficits Psych-normal affect, normal mood Results & Data Results & Data Vital Signs (Past 12 Hours) Vital Signs Temp Pulse Resp BP Pulse Ox O2 Del Method 03/23/25 11:14 36.6 C 50 L 14 131/68 97 Room Air 03/23/25 07:33 36.4 C L 50 L 14 155/66 H 98 Room Air Laboratory Results 03/23/25 09:35 03/23/25 09:35 PG Care Time/CCT Total # of Minutes Spent Total Time Spent with Patient: Total time spent is greater than 50% in coordination of care (as documented) at patient's floor/unit and/or counseling patient: Coding Level of Care Code 36636 SUB INP/OBS CARE 2/35MIN Diagnoses Displacement of nephrostomy tube T83.022A KENDRICK (acute kidney injury) N17.9 Complicated UTI (urinary tract infection) N39.0 Coronary artery disease I25.10 Paroxysmal atrial fibrillation I48.0 Type 2 diabetes mellitus E11.9
[2025-03-23] MEDS: MIDAZOLAM HCL 1 MG/ML 2ML VIAL ONE (14:09)
--- NOTE | 2025-03-23 14:42 | Discharge Summary ---
Discharge Summary Date of Service March 23, 2025 Principal Dx & Hospital Course #1 = Principal Diagnosis (1) Displacement of nephrostomy tube: Left nephrostomy tube has been out for several weeks and cannot be replaced at this institution. The patient has elected to be transferred to [facility] for further care. Urology has requested that both nephrostomy tubes to be replaced. (2) KENDRICK (acute kidney injury): Creatinine improved with IV fluids. Now 1.5. Monitor urine output. Serial labs (3) Complicated UTI (urinary tract infection): Most recent urine culture grew Acinetobacter. Repeat urine culture results pending. Continue intravenous Zosyn, day 2 (4) Coronary artery disease: Currently stable. Continue current medical management (5) Paroxysmal atrial fibrillation: Currently rate controlled in normal sinus rhythm. Eliquis is temporarily on hold. This will be restarted postprocedure (6) Type 2 diabetes mellitus: ADA diet. Sliding scale coverage while hospitalized (7) Left inguinal hernia: Not incarcerated. Reduced while in the ER. He will follow-up with general augusto aguilera as an outpatient for definitive treatment at a later date Plan Transferred to [facility] for replacement of bilateral nephrostomy t ubes. Admission HPI Per Admitting Provider 80-year-old white male with bilateral nephrostomy tubes from benign prostatic hypertrophy and outflow tract obstruction. The left nephrostomy tube has come out several times over the past several weeks and has been replaced by the patient several times and now is out again. He has had gross hematuria for at least 3 days. There is probably a urinary tract infection. Recent urine culture grew Acinetobacter and he has been given intravenous Zosyn in the ER which we will continue. He has acute kidney injury on admission with creatinine 1.9 and baseline 1.3. Apparently our radiologist, Dr. Tucker, has agreed to attempt to replace the left nephrostomy tube tomorrow, March 23. The patient is admitted for further evaluation and treatment. Eliquis has been placed on hold Discharge Exam General-alert and oriented x3, no fever, no chills HEENT-head atraumatic and normocephalic, pupils equal and reactive to light, extraocular muscles intact Neck-no lymphadenopathy or thyromegaly, trachea midline Chest-clear to auscultation. No rales, wheezing or rhonchi Cardiac-regular rate and rhythm, normal S1 and S2 Abdomen-normal bowel sounds, no hepatosplenomegaly Extremities-no cyanosis, clubbing, or edema Neuro-cranial nerves II through XII intact, motor and sensory function within normal limits, strength symmetrical, no focal deficits Psych-normal affect, normal mood Discharge Plan Discharge Items Patient Disposition: Transfer Acute Care Hospital Reason For Visit: LEFT NT CAME OUT Discharge Diagnosis: Displacement of left nephrostomy tube Condition on Discharge: Good Activity: Resume your previous activity Non-emergency contact: Primary Care Provider and Urologist Call non-emergency contact if: you have any medication questions and your symptoms worsen Follow-up/Referrals: Delmi Nuno MD [Primary Care Provider] - Diet: Carb Consistent or DM2 and Heart Healthy Addtl Attending Provider Instructions: See primary care provider and urologist as soon as possible after discharge from [facility]. Follow-up with general surgery for definitive treatment of left inguinal hernia Pending Studies at Discharge: No Stand-Alone Forms: My [facility] [employer] Skilled Items Patient informed of condition?: Yes DNR: No Discharge Level of Care: Other Communicable Disease: No Discharge Prognosis: Stable Lines: Peripheral IV Urinary Catheter: No Medications and DC Order Prescriptions: Continued (DME) Bedside Commode Misc See Rx Instructions .Route Qty: 1 0RF Rx Instructions: As directed (DME) blood-glucose meter [OneTouch Verio Flex Start] Kit See Rx Instructions .Route Qty: 1 0RF Rx Instructions: Check blood sugar twice daily amlodipine 10 mg tablet 10 mg PO DAILY Qty: 90 3RF sodium chloride 0.9 % (flush) [Normal Saline Flush] Syringe 10 ml intra-catheter DAILY Qty: 120 0RF Patient Comments: 03/22- unable to verify Rx Instructions: flush nephrostomy tube with 10ml wkly (DME) OneTouch Verio test strips Strip See Rx Instructions .Route Qty: 50 1RF Rx Instructions: Test daily As directed atorvastatin 80 mg tablet 0 mg PO QAM Patient Comments: 03/22- last filled 11/02 30 day supply #30 metoprolol succinate 100 mg tablet extended release 24 hr 200 mg PO DAILY Patient Comments: Pt states he takes 200mg daily, however originally written for 100mg daily. Says he has always taken 200mg daily. acetaminophen 500 mg Tablet 500 mg PO Q6H PRN (Reason: Pain) Patient Comments: 12/15- otc unable to verify clopidogrel 75 mg tablet 75 mg PO BID Patient Comments: filled 11/30 90 day supply Eliquis 2.5 mg tablet 0 mg PO BID Patient Comments: 03/22- 2.5mg last filled 07/21 90 day supply #180; 5 mg dose last filled 01/27 30 day supply sulfamethoxazole-trimethoprim 800-160 mg tablet 1 tab PO BID Patient Comments: filled 03/21 7 day supply #14 lisinopril 20 mg tablet 20 mg PO BID tamsulosin 0.4 mg capsule 0 mg PO QAM Patient Comments: 03/22- last filled 09/14 30 day supply #30 Discharge Orders: Discharge Order (Routine); Ordered 03/23/25 Ordered By: Wero Cole Admission Data Admit Date/Time: 03/22/25 16:52 Attending Provider: Wero Cole Admit Provider: Wero Cole Primary Care Provider: Delmi Nuno Other Providers: Severiano Coburn; Faheem Guillaume; Wero Cole Hospital Stay Data Consultations 03/22/25 14:42 Consult Urology Stat 03/22/25 16:03 Consult General Surgery Stat 03/22/25 16:18 ED Decision to Admit Stat Procedures Performed Operation Date: 03/23/25 14:00 Actual Procedures p Nephrostomy Tube Exchange(Left) - Jose Tucker MD Diagnostic Imagining Performed 03/22/25 15:07 CT abd pelvis wo con Stat Discharge Instructions Given to Patient (Per Discharging Provider) See primary care provider and urologist as soon as possible after discharge from [facility]. Follow-up with general surgery for definitive treatment of left inguinal hernia Total Time Total Time Spent Total Time Spent (In Minutes): 45 minutes. Total time included patient exam, discharge planning, medication reconciliation, and communication with other providers. Coding Level of Care Code 14636 INP/OBS DISCH >30 MIN Diagnoses Displacement of nephrostomy tube T83.022A KENDRICK (acute kidney injury) N17.9 Complicated UTI (urinary tract infection) N39.0 Coronary artery disease I25.10 Paroxysmal atrial fibrillation I48.0 Type 2 diabetes mellitus E11.9 Left inguinal hernia K40.90
[2025-03-23 15:09] VITALS: RESP 16; O2SAT 98
[2025-03-23] MEDS: LIDOCAINE 1% LOCAL 20 ML VIAL ONE (17:09)
[2025-03-23 19:57] VITALS: BP 118/47; PULSE 62; TEMP 98
--- NOTE | 2025-03-25 07:12 | Coding Query ---
CODING QUERY To promote full compliance with coding requirements relating to patient care, provider participation is requested in all cases of coal miner uncertainty. Please assist us with the question(s) below: In the record, it states that the patient has a Complicated UTI. Please clarify below the cause of the UTI if applicable. Thank you. ( ) The Nephrostomy Tube was the most likely cause of the UTI. ( ) Other urinary cath/device was the cause of the UTI. ( ) UTI, unspecified cause. ( X ) Other (Specify):__Patient has bilateral ureteral obstruction which increased his risk of UTI and complicates treatment Principal Diagnosis: "that condition established after study, to be chiefly responsible for occasioning the admission of the patient to the hospital for care." Co-Existing Principal Diagnosis: "when two or more diagnoses equally meet the criteria for principal diagnosis as determined by the circumstances of admission, diagnostic work up, and/or therapy provided, and the Alphabetic Index, Tabular List, or another coding guideline does not provide sequencing direction, any one of the diagnoses may be sequenced first." "When the physician has documented what appears to be a current diagnosis in the body of the record, but has not included the diagnosis in the final diagnostic statement, the physician should be asked whether the diagnosis should be added." (Source Coding Clinic 2 QTR90. p3-4) JONATHON
== END 2025-03-23 20:15 | disposition short-term general hospital (02) | DRG 690 ==
LOC: SUATTDRO → ED 14:11 → EDINP 16:52 → 3N 20:53